=== PATIENT | male | born 2000 | race African-American/Black ===

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

== ENCOUNTER 2022-07-25 12:50 | Inpatient (IN) | payer OTHER, SELFPAY ==
[2022-07-25] MEDS ORDERED: ONDANSETRON 4 MG/2 ML VIAL ONE ×2 (13:09→14:06)
[2022-07-25] MEDS ORDERED: MORPHINE 4 MG/ML SYR ONE (13:09)
--- OUTSIDE RECORDS SUMMARY | 2022-07-25 13:09 | XMS REPORT | Continuity of Care Document ---
:[address] [facility] t Address [address] [place] [address] [address] [place] [address] Care Team Providers Name Role Phone Maki Harding MD Primary Care Physician TAL DAVIS Attending Clinician Unavailable MAKI HARDING Attending Clinician Unavailable RIN DAVIS Attending Clinician Unavailable CISCO VITAL Attending Clinician Unavailable KARLO JONES Attending Clinician Unavailable GEOVANNI LANGLEY Attending Clinician Unavailable PAO MARTINEZ Attending Clinician Unavailable Jeff Corbett MD Attending Clinician [phone] Estrellita Cano Attending Clinician ESTRELLITA ACNO Attending Clinician Unavailable Irina Parks Attending Clinician IRINA PARKS Attending Clinician Unavailable Brooke Claudio RN Attending Clinician Unavailable Gavin Pena RN Attending Clinician Unavailable PRACHI CANO Attending Clinician Unavailable Prachi Cano Attending Clinician Cammie Price Attending Clinician CAMMIE PRICE Attending Clinician Unavailable Holli Valera Attending Clinician Unavailable Marianne Geurra RN Attending Clinician Unavailable Kianna Waters RPH Attending Clinician Unavailable Nancy PATHAK, Manuel Avila Attending Clinician Mor PATHAK, Keny Duffy Attending Clinician Yoselin PATHAK, Kota Jackson Attending Clinician [phone] Alice Lincoln MA Attending Clinician Unavailable Kwabena Mariano MD Attending Clinician Nerissa PATHAK, Vanessa Attending Clinician MD VANESSA MULTANI Attending Clinician Unavailable Selwyn JARAMILLO, Pushpa Attending Clinician Unavailable [facility] ADZ WORKER, Fabi Attending Clinician Unavailable Bettye RN, Yessica Attending Clinician Unavailable Rayo JARAMILLO, Manjula Attending Clinician Unavailable Barbara Harding DO Attending Clinician Rohit PATHAK, Gary Cisneros Attending Clinician Fatemeh Loredo Attending Clinician FATEMEH LOREDO Attending Clinician Unavailable Kim RNLucila Attending Clinician Unavailable Amira RNElsa Attending Clinician Unavailable Adri Melendez RN Attending Clinician Unavailable Rajat Ash Attending Clinician Unavailable Marianne Keller RN Attending Clinician Unavailable Yajaira Du RN Attending Clinician Unavailable Lazarus JARAMILLO, Eryn Attending Clinician Unavailable Latosha Brooks RN Attending Clinician Unavailable CISCO VITAL M.D. Attending Clinician Unavailable Timothy Vasquez Attending Clinician TIMOTHY VASQUEZ Attending Clinician Unavailable Shlomo Bustillos MD Attending Clinician Péerz Thompson MD Attending Clinician FAHEEM BRIGGS Attending Clinician Unavailable CAIT ALMENDAREZ M.D. Attending Clinician Unavailable SMILEY CHAVEZ Attending Clinician Unavailable FRANCISCO JAVIER SOMMERS Attending Clinician Unavailable Leora King Attending Clinician ERENDIRA KITCHEN Attending Clinician Unavailable Dale Rao Attending Clinician ABELINO GUZMAN Admitting Clinician Unavailable Sajja, Abelino Admitting Clinician KOTA PERRIN Admitting Clinician Unavailable MD KENY MENON Admitting Clinician Unavailable VANESSA MULTANI Admitting Clinician Unavailable MD VANESSA MULTANI Admitting Clinician Unavailable PÉREZ THOMPSON Admitting Clinician Unavailable PATTI EPPS Admitting Clinician Unavailable Payers Payer Name Policy Type Policy Number Effective Date Expiration Date S olivia [employer] [id number] 1989 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 00:00:00 Problems Condition Condition Condition Status Onset Resolution Last Treating Co mments Source Name Details Category Date Date Treatment Clinician Date LIP INJURY LIP Diagnosis Active 2021-082022-06-14 Memoria INJURY 0-05 17:03:00 l Active 00:00: [place] 05/05/2022 00 [facility] SICKLE SICKLE Diagnosis Active 2022-04-20 M emoria CELL CELL 9- 08:22:00 l CRISIS CRISIS 00:00: Stiven Active 00 04/19/2022 [facility] SICKLE SICKLE Diagnosis Active 2022-01-11 Me moria CELL CELL 6- 04:41:00 l Active 00:00: Stiven 01/11/2022 00 [facility] ACUTE ACUTE Diagnosis Active 2022-04-16 [facility] oria SICKLE SICKLE 01-11 11:38:00 l CELL CELL 00:00: [place] CRISIS CRISIS 00 Active 01/11/2022 [facility] Sickle Sickle Disease Active Methodi cell cell 3-28 st crisis crisis 00:00: Hospita 00 l Intractabl 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 2-25 migraine migraine 00:00: without without 00 aura and aura and with with status status migrainosu migrainosu s s Sepsis Sepsis Disease Active Methodi 2-02 st 00:00: Hospita 00 l Sickle Sickle Disease Active Methodi cell pain cell pain 1-31 st crisis crisis 00:00: Hospita 00 l SICKLE SICKLE Diagnosis Active 2021-03-31 Me moria CELL CELL 8-17 09:03:00 l CRISIS - CRISIS - 00:00: Sang n CHEST CHEST 00 PAIN, LT PAIN, LT RIBC RIBC Active 03/17/2021 [facility] Lymphadeni Lymphadeni Disease Active U T tis tis 6-11 Health 00:00: 00 Nodule of Nodule of Disease Active UT skin of skin of 10-25 Health right right 00:00: lower leg lower leg 00 Palpitatio Palpitatio Disease Active M ethodi ns ns 10-24 st 00:00: Hospita 00 l Tachycardi Tachycardi Disease Active M ethodi a a 10-24 st 00:00: Hospita 00 l Atypical Atypical Disease Active UT chest pain chest pain 10-24 He alth 00:00: 00 LEG PAIN LEG PAIN Diagnosis Active 2020-10-23 Memoria Active 10-23 14:52:00 l 10/23/2020 13:10: Sang nichols [facility] 00 Stiven Encounter Encounter Disease Active UT for for 2-12 Health support support 00:00: and and 00 coordinati coordinati on of on of transition transition of care of care 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 Evidence of cardiomeg óscar noted on EKGNo evidence of enlarged cardiomed iastinal silhouett e noted on CXR obtain approx 1 mth ago Non-HTN Will obtain Echo for add't eval Iron Iron Disease Active Methodi overload overload 04-25 st 00:00: Hospita 00 l Proteinuri Proteinuri Disease Active U T a a 9 Health 00:00: 00 Sickle Sickle Disease Active Methodi cell cell 3- st retinopath retinopath 00:00: Ho spita y y 00 l Vitamin D Vitamin D Disease Active Met hodi deficiency deficiency 3-17 st 00:00: Hospita 00 l Back Back Disease Active UT muscle muscle 1-24 Health spasm spasm 00:00: 00 Chronic Chronic Disease Active 2018-08 UT pain pain 2-23 Health 00:00: 00 Vitamin D Vitamin D Disease Active 2018-08 Met hodi deficiency deficiency 1-17 st 00:00: Hospita 00 l Pulmonary Pulmonary Disease Active 2018-08 Met hodi hypertensi hypertensi 1-15 st on on 00:00: Hospita 00 l Encounter Encounter Disease Active 2018-08 UT for drug for drug 08-15 Health screening screening 00:00: 00 Sickle Sickle Disease Active 2018-08 UT cell cell 08-15 Health disease, disease, 00:00: type SS type SS 00 Proteinuri Proteinuri Disease Active 2018-08 M ethodi a a 0 00:00: Hospita 00 l Allergic Allergic Disease Active Metho di rhinitis rhinitis 04-15 00:00: Hospita 00 l N50.89 - N50.89 - Diagnosis Active 2022-04-09 Memoria OTHER OTHER 14:05:00 l SPECIFIED SPECIFIED Herm shakira DISORDERS DISORDERS OF T OF T Active [facility] History of History of Problem Resolve UT Acute Acute d Physici chest chest ans syndrome syndrome History of History of Problem Resolve UT Avascular Avascular d Phys ici necrosis necrosis ans Sickle Sickle Problem Active UT cell cell Physici retinopath retinopath an s y y Encounter Encounter Problem Active UT for drug for drug Physic i screening screening ans Pulmonary Pulmonary Problem Active UT hypertensi hypertensi Ph ysici on on ans Vitamin D Vitamin D Problem Active UT deficiency deficiency Ph ysici ans Iron Iron Problem Active UT overload overload Physic i ans Proteinuri Proteinuri Problem Active U T a a Physici ans Pain, Pain, Problem Active UT chronic chronic Physici ans Muscle Muscle Problem Active UT spasm of spasm of Physic i back back ans Transition Transition Problem Active U T of care of care Physici ans Palpitatio Palpitatio Problem Active U T n n Physici ans Chest Chest Problem Active UT tightness tightness Phys ici ans History of History of Problem Resolve UT Pneumonia Pneumonia d Phys ici due to due to ans COVID-19 COVID-19 virus virus Nodule of Nodule of Problem Active UT skin of skin of Physici right right ans lower leg lower leg Tachycardi Tachycardi Problem Active U T a a Physici ans Anemia Anemia Problem Active 2022-05-08 Mem oria (disorder) (disorder) 21:08:20 l Active [place] Problem 05/08/2022 [facility] Hyponatrem Hyponatre Problem Active 2022-05-08 Memoria ia bettina 21:08:20 l (disorder) (disorder) He rmann Active Problem 05/08/2022 [facility] Sickle Sickle Disease Active Last Methodi cell cell Assessmen st anemia anemia t & Plan: Hospita Formattin l g of this note might be different from the original. Recent crisis w/ pain of L flank assoc w/ abnormal urine color Pt was jaundice on presentat ion to ERT bili lvl 3.4CT abd/plevi s -ve for evidence of colitis, perforati on, obstructi on, diverticu litis, hydroneph rosis, or ascites Tx w/ IVF + pain controlur obilinoge n 4.0-->2.0 (likely cause of abnormal color)Orly n now resolvedH emodynami deejay stable, w/ stable anemia Pt state he has had approx 5-6 crisis in the last 6 mthsCompl iant w/ hydroxyur ea Instructe d to f/u w/ Heme concernin g alternati ve tx for freq flares Avascular Avascular Disease 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 Assessmen st t & Plan: Hospita Formattin l g of this note might be different from the original. S/p L shoulder graftingL imited mobility in R shoulder + L hipStable History of Past Illness Condition Condition Condition Status Onset Resolution Last Treating Co mments Source Name Details Category Date Date Treatment Clinician Date Chest Chest Problem 2022-04-21 2022-04-21 M emoria pain, pain, 04-19 22:19:11 22:19:11 l unspecifie unspecifie 17:26: He rmann d d 00 04/19/2022 2 [facility] Hb-SS Hb-SS Problem 2022-04-21 2022-04-21 M emoria disease disease 04-19 22:19:11 22:19:11 l with with 17:26: Stiven crisis, crisis, 00 unspecifie unspecifie d d 04/19/2022 2 [facility] Pleurodyni Pleurodyn Problem 2021-01-26 2021-01-26 Memoria a ia 01-24 21:56:01 21:56:01 l 01/24/2021 17:00: Sang n 1 [facility] Headache, Headache, Problem 2021-01-26 2021-01-26 Memoria unspecifie unspecifie 01-24 21:56:01 21:56:01 l d d 17:00: [place] 01/24/2021 00 01/26/2021 [facility] Pain in Pain in Problem 2020-10-25 2020-10-25 Memoria leg, leg, - 22:15:22 22:15:22 l unspecifie unspecifie 17:00: He rmann d d 00 10/23/2020 10/25/2020 [facility] Allergies, Adverse Reactions, Alerts Allergy Allergy Status Severity Reaction(s) Onset Inactive Treating Comm ents Source Name Type Date Date Clinician Cirilo Huston Active Rash Patient Metho di allen ty to 09-[address] adverse 00:00: as Hospita reaction 00 becoming l s to really drug hot, had tachycard ia, a diffuse rash and syncope immediate ly after receiving ceftriaxo ne IV Rocephin Rocephin Active Memori a l [place] Rocephin Allergy Active UT to drug Physici (finding ans ) Family History Family Member Diagnosis Comments Start Date Stop Date Source Mother Family history of [facility] Phys icians sickle cell trait Mother Family history of [facility] Phys icians diabetes mellitus Mother Family history of [facility] Phys icians Thalassemia trait Father Family history of [facility] Phys icians sickle cell trait Father Family history of [facility] Phys icians hypertension Father Family history of [facility] Phys icians Thalassemia trait Natural father Diabetes Gnosticism [facility] Natural father Heart attack [facility] Natural father Stroke [facility] Maternal Diabetes Gnosticism grandmother [facility] Natural mother Diabetes Gnosticism Hospital Social History Social Habit Start Date Stop Date Quantity Comments Source History SDOH Gnosticism Alcohol Comment Hospital History [facility] Gnosticism Alcohol Std Hospital Drinks History [facility] Gnosticism Alcohol Binge Hospital Exposure to 2022-03-02 2022-03-12 Not sure [facility] SARS-CoV-2 00:00:00 13:32:00 (event) Social History 2022-01-12 2022-01-12 [facility] 00:39:44 00:39:44 Alcohol intake 2021-10-26 2021-10-26 Current drinker [facility]o dist 00:00:00 00:00:00 of alcohol Hospital (finding) History [facility] 2020-09-22 2020-09-22 1 Gnosticism Alcohol Frequency 00:00:00 00:00:00 Hospita l Tobacco use and 2019-04-16 2019-04-16 Smokeless tobacco Me [facility]odist exposure 00:00:00 00:00:00 non-user Hospital Sex Assigned At [birth year] [facility] 00:00:00 00:00:00 Smoking Status Start Date Stop Date Source Social History 2019-07-31 04:36:04 [facility] Her reyna Never smoked tobacco Gnosticism H ospital Medications Ordered Filled Start Stop Current Ordering Indication Dosage Frequency Signature Comments Components Source Medication Medication Date Date Medication? Clinician (SIG) Name Name morphine No 4 mg, Memoria Sulfate 04-19 Route: l 16:51: IVP, Drug Stiven form: INJ, ONCE, Dosing Weight 68.3, kg, Priority: STAT, Start date: 04/19/22 11:51:00 CDT, Stop date: 04/19/22 11:51:00 CDT morphine No 4 mg, Memoria Sulfate 04-19 Route: l 16:51: IVP, Drug [place] form: INJ, ONCE, Dosing Weight 68.3, kg, Priority: STAT, Start date: 04/19/22 11:51:00 CDT, Stop date: 04/19/22 11:51:00 CDT Dilaudid No Notes: Memoria - (Same as: l 16:29: Dilaudid) Stiven 00 ketOROLAC 0 No 4 days Memor ia 15 mg/mL 04-19 l injectable 16:29: MEDICATION H ermann solution 00 WASTE Product Size: 30 mg Product Wasted: ___ mg Dilaudid No Notes: Memoria 9-19 (Same as: l 16:29: Dilaudid) Stiven 00 ketOROLAC 0 No 4 days Memor ia 15 mg/mL 04-19 l injectable 16:29: MEDICATION H ermann solution 00 WASTE Product Size: 30 mg Product Wasted: ___ mg morphine No Notes: Memoria Sulfate 04-19 (Same l 15:06: as:MORPhin [place] 00 e Sulfate) morphine No Notes: Memoria Sulfate 9-19 (Same l 15:06: as:MORPhin Stiven 00 e Sulfate) morphine No Notes: Memoria Sulfate 9-19 (Same l 12:09: as:MORPhin [place] 00 e Sulfate) Zofran No Notes: Memoria 9-19 (Same as: l 12:09: Zofran) Stiven 00 MEDICATION WASTE Product Size: 4 mg Product Wasted: ___ mg normal No 1,000 mL, Memori a saline 0.9% 9-19 1,000 l (Bolus) IV 12:09: ml/hr, Mignon nn 00 Infuse Over: 1 hr, Route: IV, 1,000, Drug form: INJ, ONCE, Priority: STAT, Dosing Weight 68.3 kg, Start date: 04/19/22 7:09:00 CDT, Stop date: 04/19/22 7:09:00 CDT, 0 morphine No Notes: Memoria Sulfate 9- (Same l 12:09: as:MORPhin [place] 00 e Sulfate) Zofran No Notes: Memoria - (Same as: l 12:09: Zofran) Stiven 00 MEDICATION WASTE Product Size: 4 mg Product Wasted: ___ mg normal No 1,000 mL, Memori a saline 0.9% 9-19 1,000 l (Bolus) IV 12:09: ml/hr, Mignon nn 00 Infuse Over: 1 hr, Route: IV, 1,000, Drug form: INJ, ONCE, Priority: STAT, Dosing Weight 68.3 kg, Start date: 04/19/22 7:09:00 CDT, Stop date: 04/19/22 7:09:00 CDT, 0 ketorolac 2021- No 15mg UT (Toradol) 04-06 Health injection 21:30: 20:50 15 mg 00 :00 ketorolac 2021- No 15mg 15 mg, UT (Toradol) 04-06 Intravenou Hea lth injection 21:30: 20:50 s, Once, 15 mg 00 :00 On Tue04/06/22 at 1630, For 1 dose
In dications: sickle cell pain crisis. sodium 2021- No 500mL/h UT chloride 04-06 Health 0.9 % 21:00: 20:15 infusion 00 :00 sodium 2021- No 500mL/h 500 mL/hr, U T chloride 04-06 Intravenou Heal th 0.9 % 21:00: 20:15 s, Once, infusion 00 :00 On Tue04/06/22 at 1600, For 1 dose
In dications: sickle cell pain crisis HYDROcodone Yes [id number] 1{tbl} Q6H Take 1 UT -acetaminop 8-17 tablet by [facility] hen ([facility]) 00:00: mouth 10-325 MG 00 every 6 tablet (six) hours if needed for severe pain. HYDROcodone Yes [id number] 1{tbl} Q6H Take 1 UT -acetaminop 8-17 tablet by [facility] hen ([facility]) 00:00: mouth 10-325 MG 00 every 6 tablet (six) hours if needed for severe pain. HYDROcodone 2021- No [id number] 1{tbl} Q6H Take 1 UT -acetaminop 8-15 08-[address] [facility] [employer] ([facility]) 00:00: 00:00 mouth 10-325 MG 00 :00 every 6 tablet (six) hours if needed for severe pain. hydroxyurea Yes [id number] TAKE 4 UT (Hydrea) 8-12 CAPSULES Health 500 MG 00:00: DAILY capsule 00 methocarbam Yes [id number] TAKE 1 UT ol 8-12 TABLET Health (Robaxin) 00:00: DAILY 500 MG 00 NEEDED FOR tablet SPASM. hydroxyurea Yes [id number] TAKE 4 UT (Hydrea) 8-12 CAPSULES Health 500 MG 00:00: DAILY capsule 00 methocarbam 0 Yes [id number] TAKE 1 UT ol 8-12 TABLET Health (Robaxin) 00:00: DAILY 500 MG 00 NEEDED FOR tablet SPASM. gabapentin 2021- No [id number] 300mg Take 1 UT (Neurontin) 03-12 capsule Heal th 300 MG 00:00: 04:59 (300 mg capsule 00 :00 total) by mouth every night. gabapentin 2021- No [id number] 300mg Take 1 UT (Neurontin) 03-12 capsule Heal th 300 MG 00:00: 04:59 (300 mg capsule 00 :00 total) by mouth every night. levofloxaci Yes 750 mg = 1 Memoria n 750 mg 6-19 tab, PO, l oral tablet 15:12: Daily, X 5 Stiven day, # 5 tab, 0 Refill(s), Pharmacy: [facility] #[id number], 167.64, cm, 01/11/22 19:35:00 CDT, Height, 69.8, kg, 01/11/22 19:35:00 CDT, Weight tramadol 50 Yes 50 mg = 1 M emoria mg oral 6-19 tab, PO, l tablet 15:12: Q6H, X 7 Henderson 00 day, # 28 tab, 0 Refill(s), Pharmacy: [facility] #[id number], 167.64, cm, 01/11/22 19:35:00 CDT, Height, 69.8, kg, 01/11/22 19:35:00 CDT, Weight senna 8.6 Yes 17.2 mg = Mem oria mg oral 6-19 2 tab, PO, l tablet 15:12: Bedtime, X Mignon 7 day, # 14 tab, 0 Refill(s), Pharmacy: [facility] #[id number], 167.64, cm, 01/11/22 19:35:00 CDT, Height, 69.8, kg, 01/11/22 19:35:00 CDT, Weight levofloxaci Yes 750 mg = 1 Memoria n 750 mg 6-19 tab, PO, l oral tablet 15:12: Daily, X 5 Stiven day, # 5 tab, 0 Refill(s), Pharmacy: [facility] #[id number], 167.64, cm, 01/11/22 19:35:00 CDT, Height, 69.8, kg, 01/11/22 19:35:00 CDT, Weight tramadol 50 0 Yes 50 mg = 1 M emoria mg oral 6-19 tab, PO, l tablet 15:12: Q6H, X 7 [place] 00 day, # 28 tab, 0 Refill(s), [id number], 167.64, cm, 01/11/22 19:35:00 CDT, Height, 69.8, kg, 01/11/22 19:35:00 CDT, Weight senna 8.6 Yes 17.2 mg = Mem oria mg oral 6-19 2 tab, PO, l tablet 15:12: Bedtime, X Mignon nn 00 7 day, # 14 tab, 0 Refill(s), Pharmacy: [facility] #[id number], 167.64, cm, 01/11/22 19:35:00 CDT, Height, 69.8, kg, 01/11/22 19:35:00 CDT, Weight [place] Yes 1 tab, PO, Memori a 10/325 oral 6-19 Q6H, PRN l tablet 15:11: Other -See Mignon nn 00 Comment, X 7 day, # 30 tab, 0 Refill(s), Pharmacy: [facility] #[id number], 167.64, cm, 01/11/22 19:35:00 CDT, Height, 69.8, kg, 01/11/22 19:35:00 CDT, Weight Robaxin 500 Yes 500 mg = 1 Memoria mg oral 6-19 tab, PO, l tablet 15:11: Q4H, PRN Stiven 00 Muscle Spasms, X 5 day, # 60 tab, 0 Refill(s), Pharmacy: [facility] #[id number], 167.64, cm, 01/11/22 19:35:00 CDT, Height, 69.8, kg, 01/11/22 19:35:00 CDT, Weight codeine-gua 0 Yes 10 mL, PO, Memoria iFENesin 10 6-19 Q4H, PRN l mg-100 mg/5 15:11: Cough, X 3 Henderson mL oral 00 day, # 120 syrup mL, 0 Refill(s), Pharmacy: [facility] #[id number], 167.64, cm, 01/11/22 19:35:00 CDT, Height, 69.8, kg, 01/11/22 19:35:00 CDT, Weight [place] 0 Yes 1 tab, PO, Memori a 10/325 oral 6-19 Q6H, PRN l tablet 15:11: Other -See Mignon nn 00 Comment, X 7 day, # 30 tab, 0 Refill(s), Pharmacy: [facility] #[id number], 167.64, cm, 01/11/22 19:35:00 CDT, Height, 69.8, kg, 01/11/22 19:35:00 CDT, Weight Robaxin 500 Yes 500 mg = 1 Memoria mg oral 6-19 tab, PO, l tablet 15:11: Q4H, PRN Stiven 00 Muscle Spasms, X 5 day, # 60 tab, 0 Refill(s), Pharmacy: [facility] #[id number], 167.64, cm, 01/11/22 19:35:00 CDT, Height, 69.8, kg, 01/11/22 19:35:00 CDT, Weight codeine-gua Yes 10 mL, PO, Memoria iFENesin 10 6-19 Q4H, PRN l mg-100 mg/5 15:11: Cough, X 3 Stiven mL oral 00 day, # 120 syrup mL, 0 Refill(s), Pharmacy: [facility] #[id number], 167.64, cm, 01/11/22 19:35:00 CDT, Height, 69.8, kg, 01/11/22 19:35:00 CDT, Weight magnesium 0 No Notes: Memori a citrate 6-18 (Same as: l 1.745 g/30 14:06: Citrate of H ermann mL oral 00 Magnesia) liquid Concentrat ion: 1.745 gm / 30 mL magnesium No Notes: Memori a citrate 6-18 (Same as: l 1.745 g/30 14:06: Citrate of H ermann mL oral 00 Magnesia) liquid Concentrat ion: 1.745 gm / 30 mL SUMAtriptan No Notes: Fred sherlyn 6-17 (Same As: l 13:39: Imitrex) SUMAtriptan No Notes: Fred sherlyn 6-17 (Same As: l 13:39: Imitrex) potassium No Notes: Memori a chloride 6-16 (Same as: l 19:39: K-Dur 20) "Do Not Crush" Give with food and full glass of water For patients unable to swallow tablet, dissolve in one half glass of water. Allow about 2 minutes for the tablets to disintegra te. Stir before giving to prepare slurry and administer . Please exclude Patient s with feeding tube less than 14 Portuguese (Dobhoff, J-tube etc) and pediatric and patients. potassium No Notes: Memori a phosphate-s -16 (Same as: l odium 19:39: Phos-NaK) Henderson phosphate 00 Each 1.5 250 mg-280 gm pkt has mg-160 mg 250mg oral powder phosphorou for s. Mix reconstitut w/2.5oz ion water and stir. potassium No Notes: Memori a phosphate + 6-16 (Same as: l Sodium 19:39: K [place] Chloride 00 Phosphate. 0.9% IV 250 ) Do not mL infuse phosphorou s concurrent ly in the same line as TPN or IVF that contains calcium. For double lumen central lines, phosphorou s may be infused in a separate lumen from TPN. 1 mMol phoshate has 1.47 mEq potassium Infuse over 4 hours sodium No Notes: Memoria phosphate + 6-16 Infuse l Dextrose 5% 19:39: over 4 Herm shakira in Water IV 00 hour. Do 250 mL not infuse phosphorou s concurrent ly in the same line as TPN or IVF that contains calcium. For double lumen central lines, phosphorou s may be infused in a separate lumen from TPN. magnesium No Notes: Memori a sulfate -16 WASTE: F/P l 19:39: - Sink; E Stiven 00 - Municipal Trash Bin magnesium No Notes: Memori a oxide 6-16 (Same as: l 19:39: Mag-Ox Henderson 00 400) Magnesium oxide [id number] g elemental magnesium Dose=____m g magnesium oxide (___mg elemental magnesium) calcium No Notes: Memoria gluconate 6-16 WASTE: F/P l 19:39: - Sink; E Stiven 00 - Municipal Trash Bin calcium No Notes: Memoria gluconate + 6-16 WASTE: F/P l Sodium 19:39: - Sink; E Sang n Chloride 00 - 0.9% IV 100 Municipal mL Trash Bin potassium No Notes: Memori a chloride 6-16 (Same as: l 19:39: K-Dur 20) Stiven 00 "Do Not Crush" Give with food and full glass of water For patients unable to swallow tablet, dissolve in one half glass of water. Allow about 2 minutes for the tablets to disintegra te. Stir before giving to prepare slurry and administer . Please exclude Patient s with feeding tube less than 14 Portuguese (Dobhoff, J-tube etc) and pediatric and patients. potassium No Notes: Memori a phosphate-s -16 (Same as: l odium 19:39: Phos-NaK) Stiven phosphate 00 Each 1.5 250 mg-280 gm pkt has mg-160 mg 250mg oral powder phosphorou for s. Mix reconstitut w/2.5oz ion water and stir. potassium No Notes: Memori a phosphate + 6-16 (Same as: l Sodium 19:39: K Stiven Chloride 00 Phosphate. 0.9% IV 250 ) Do not mL infuse phosphorou s concurrent ly in the same line as TPN or IVF that contains calcium. For double lumen central lines, phosphorou s may be infused in a separate lumen from TPN. 1 mMol phoshate has 1.47 mEq potassium Infuse over 4 hours sodium No Notes: Memoria phosphate + 6-16 Infuse l Dextrose 5% 19:39: over 4 Herm shakira in Water IV 00 hour. Do 250 mL not infuse phosphorou s concurrent ly in the same line as TPN or IVF that contains calcium. For double lumen central lines, phosphorou s may be infused in a separate lumen from TPN. magnesium No Notes: Memori a sulfate 6-16 WASTE: F/P l 19:39: - Sink; E Henderson 00 - Municipal Trash Bin magnesium No Notes: Memori a oxide 6-16 (Same as: l 19:39: Mag-Ox [place] 00 400) Magnesium oxide [id number] g elemental magnesium Dose=____m g magnesium oxide (___mg elemental magnesium) calcium No Notes: Memoria gluconate 6-16 WASTE: F/P l 19:39: - Sink; E Stiven 00 - Municipal Trash Bin calcium No Notes: Memoria gluconate + 16 WASTE: F/P l Sodium 19:39: - Sink; E Sang n Chloride 00 - 0.9% IV 100 Municipal mL Trash Bin simethicone No Notes: Fred sherlyn 6-16 (Same as: l 19:38: Mylicon) codeine-gua No Notes: Fred sherlyn iFENesin 10 6-16 (Same As: l mg-100 mg/5 19:38: Robitussin [place] mL oral 00 AC) syrup diphenhydrA No Notes: Fred sherlyn MINE 6-16 (Same as: l 19:38: Benadryl) melatonin No Notes: Memori a 6-16 (Same as: l 19:38: Melatonin) simethicone No Notes: Fred sherlyn 6-16 (Same as: l 19:38: Mylicon) codeine-gua No Notes: Fred sherlyn iFENesin 10 6-16 (Same As: l mg-100 mg/5 19:38: Robitussin [place] mL oral 00 AC) syrup diphenhydrA No Notes: Fred sherlyn MINE 6-16 (Same as: l 19:38: Benadryl) melatonin No Notes: Memori a 6-16 (Same as: l 19:38: Melatonin) Levaquin No Notes: Do Fred sherlyn 6-16 not give l 13:00: w/antacids , dairy pdt & minerals Take 1 hr before or 2 hr after dairy pdt (Same as:Levaqui n) Levaquin 2022-0 No Notes: Do Fred sherlyn 6-16 not give l 13:00: w/antacids , dairy pdt & minerals Take 1 hr before or 2 hr after dairy pdt (Same as:Levaqui n) hydroxyurea No Notes: Fred sherlyn 6-15 (Same as: l 14:00: Hydrea) Hazardous Drug Group 1:Antineop lastic Hazardous Drug -- Refer to safe handling procedure PPE Matrix WASTE: F/P - Black; E Yellow "Do Not Crush" hydroxyurea No Notes: Fred sherlyn 6-15 (Same as: l 14:00: Hydrea) Hazardous Drug Group 1:Antineop lastic Hazardous Drug -- Refer to safe handling procedure PPE Matrix WASTE: F/P - Black; E Yellow "Do Not Crush" sodium 2021- No 2 gm, 2 Memoria chloride 1 6-15 tab, l gm oral 13:00: Route: PO, Herm shakira tablet 00 Drug form: TAB, [id number], Dosing Weight 69.8, kg, Start date: 01/13/22 8:00:00 CDT, Duration: 30 day, Stop date: 02/11/22 20:00:00 CDT, 0 sodium 2021-0 No 2 gm, 2 Memoria chloride 1 6-15 tab, l gm oral 13:00: Route: PO, Herm shakira tablet 00 Drug form: TAB, [id number], Dosing Weight 69.8, kg, Start date: 01/13/22 8:00:00 CDT, Duration: 30 day, Stop date: 02/11/22 20:00:00 CDT, 0 gabapentin No Notes: Memor ia 300 mg oral 6-14 (Same as: l capsule 22:00: Neurontin) Herm shakira gabapentin 2021-0 No Notes: Memor ia 300 mg oral 6-14 (Same as: l capsule 22:00: Neurontin) Herm Sodium 2021-0 No 1,000 mL, Memori a Chloride 6-14 Rate: 40 l 0.45% IV 16:27: ml/hr, Stiven 1,000 mL 00 Infuse over: 25 hr, Route: IV, Dosing Weight 69.8 kg, Total Volume: 1,000, Start date: 01/12/22 11:27:00 CDT, Duration: 30 day, Stop date: 02/11/22 11:26:00 CDT, BSA: 1.82 m2, 0 Sodium No 1,000 mL, Memori a Chloride 6-14 Rate: 40 l 0.45% IV 16:27: ml/hr, [place] 1,000 mL 00 Infuse over: 25 hr, Route: IV, Dosing Weight 69.8 kg, Total Volume: 1,000, Start date: 01/12/22 11:27:00 CDT, Duration: 30 day, Stop date: 02/11/22 11:26:00 CDT, BSA: 1.82 m2, 0 tramadol 50 No Notes: Not Memoria mg oral 6-14 to exceed l tablet 14:19: 400mg/day. Mignon nn 00 (Same As: Ultram) tramadol 50 No Notes: Not Memoria mg oral 6-14 to exceed l tablet 14:19: 400mg/day. Mignon nn 00 (Same As: Ultram) Robaxin No Notes: Memoria 6-14 (Same l 14:18: as:Robaxin Stiven 00 ) Robaxin No Notes: Memoria 6-14 (Same l 14:18: as:Robaxin Stiven 00 ) Vitamin D2 Yes 50,000 Memor ia 6-14 units, l 02:53: qWeek, 0 [place] 00 Refill(s) Vitamin D2 Yes 50,000 Memor ia 6-14 units, l 02:53: qWeek, 0 Stiven 00 Refill(s) SUMAtriptan Yes 25 mg = 1 M emoria 25 mg oral 6-14 tab, PO, l tablet 02:50: PRN, 0 [place] 00 Refill(s) SUMAtriptan Yes 25 mg = 1 M emoria 25 mg oral 6-14 tab, PO, l tablet 02:50: PRN, 0 [place] 00 Refill(s) hydroxyurea Yes 4 capsule, Memoria 500 mg oral 6-14 PO, Daily, l capsule 02:49: 0 Stiven 00 Refill(s) hydroxyurea 2022-0 Yes 4 capsule, Memoria 500 mg oral 6-14 PO, Daily, l capsule 02:49: 0 [place] 00 Refill(s) nortriptyli Yes 10 mg = 1 M emoria ne 10 mg 6-14 cap, PO, l oral 02:46: Bedtime, 0 Stiven capsule 00 Refill(s) gabapentin Yes 300 mg = 1 M emoria 300 mg oral 6-14 cap, l capsule 02:46: Daily, 0 Sang n 00 Refill(s) nortriptyli Yes 10 mg = 1 M emoria ne 10 mg 6-14 cap, PO, l oral 02:46: Bedtime, 0 [place] capsule 00 Refill(s) gabapentin Yes 300 mg = 1 M emoria 300 mg oral 6-14 cap, l capsule 02:46: Daily, 0 Sang n 00 Refill(s) [place] No 1 tab, PO, Memori a 10/325 oral 6-14 Q6H, PRN l tablet 02:44: Other -See Mignon nn 00 Comment, 0 Refill(s) [place] No 1 tab, PO, Memori a 10/325 oral 6-14 Q6H, PRN l tablet 02:44: Other -See Mignon nn 00 Comment, 0 Refill(s) Robaxin 500 No 500 mg = 1 Memoria mg oral 6-14 tab, PO, l tablet 02:43: Q4H, PRN [place] 00 Muscle Spasms, 0 Refill(s) Robaxin 500 No 500 mg = 1 Memoria mg oral 6-14 tab, PO, l tablet 02:43: Q4H, PRN [place] 00 Muscle Spasms, 0 Refill(s) folic acid 0 Yes 1 mg, Memori a 6-14 Daily, 0 l 02:42: Refill(s) [place] 00 folic acid 0 Yes 1 mg, Memori a 6-14 Daily, 0 l 02:42: Refill(s) [place] 00 Senokot S No Notes: Memori a oral tablet 6-14 (Same as l 02:00: Senokot-S) [place] 00 Equiv. to Concepcion-Colac e. Senokot S No Notes: Memori a oral tablet 6-14 (Same as l 02:00: Senokot-S) Equiv. to Concepcion-Colac e. folic acid No Notes: Memor ia 6-13 (Same as: l 14:00: Folvite) Lovenox No Notes: Memoria 6-13 (Same as: l 14:00: Lovenox) folic acid No Notes: Memor ia 6-13 (Same as: l 14:00: Folvite) Lovenox No Notes: Memoria 6-13 (Same as: l 14:00: Lovenox) ketOROLAC No 4 days. Fred sherlyn 6-13 l 11:00: ketOROLAC No 4 days. Fred sherlyn 6-13 l 11:00: Stiven D1W No 250 mL, Memoria (bolus) IV 6-13 Rate: 999 l 10:03: ml/hr, Infuse over: 0.3 hr, Route: IVPB, Total Volume: 250, Start date: 01/11/22 5:03:00 CDT, Duration: 30 day, Stop date: 02/10/22 5:02:00 CDT, PRN Blood Glucose Results, 0 No 250 mL, Memoria (bolus) IV 6-13 Rate: 999 l 10:03: ml/hr, Infuse over: 0.3 hr, Route: IVPB, Total Volume: 250, Start date: 01/11/22 5:03:00 CDT, Duration: 30 day, Stop date: 02/10/22 5:02:00 CDT, PRN Blood Glucose Results, 0 No 125 mL, Memoria (bolus) IV 6-13 Rate: l 09:48: 416.67 [place] ml/hr, Infuse over: 0.3 hr, Route: IVPB, Total Volume: 125, Start date: 01/11/22 4:48:00 CDT, Duration: 30 day, Stop date: 02/10/22 4:47:00 CDT, PRN Blood Glucose Results, 0 D10W 2021-0 No 125 mL, Memoria (bolus) IV - Rate: l 09:48: 416.67 [place] 00 ml/hr, Infuse over: 0.3 hr, Route: IVPB, Total Volume: 125, Start date: 01/11/22 4:48:00 CDT, Duration: 30 day, Stop date: 02/10/22 4:47:00 CDT, PRN Blood Glucose Results, 0 Dextrose 2021-0 No 25 mL, Memoria 50% Syringe - Route: l (D50W) 09:34: IVP, [place] 00 Dosing Weight 68.001, kg, PRN, PRN Blood Glucose Results, Start date: 01/11/22 4:34:00 CDT, Duration: 30 day, Stop date: 02/10/22 4:33:00 CDT glucagon 2021-0 No 1 mg, Memoria 6- Route: IM, l 09:34: Drug form: Stiven PDR/INJ, PRN, Dosing Weight 68.001, kg, PRN Blood Glucose Results, Start date: 01/11/22 4:34:00 CDT, Duration: 30 day, Stop date: 02/10/22 4:33:00 CDT, 0 ondansetron No Notes: Ferd sherlyn 01-11 (Same as: l 09:34: Zofran) MEDICATION WASTE Product Size: 4 mg Product Wasted: ___ mg acetaminoph No Notes: Do M emoria en 01-11 not exceed l 09:34: 4 gm/day. (Same as: Tylenol) Dextrose 2021-0 No 25 mL, Memoria 50% Syringe - Route: l (D50W) 09:34: IVP, [place] Dosing Weight 68.001, kg, PRN, PRN Blood Glucose Results, Start date: 01/11/22 4:34:00 CDT, Duration: 30 day, Stop date: 02/10/22 4:33:00 CDT glucagon 2021-0 No 1 mg, Memoria 6-13 Route: IM, l 09:34: Drug form: Stiven 00 PDR/INJ, PRN, Dosing Weight 68.001, kg, PRN Blood Glucose Results, Start date: 01/11/22 4:34:00 CDT, Duration: 30 day, Stop date: 02/10/22 4:33:00 CDT, 0 ondansetron No Notes: Fred sherlyn 6-13 (Same as: l 09:34: Zofran) Stiven MEDICATION WASTE Product Size: 4 mg Product Wasted: ___ mg acetaminoph No Notes: Do M emoria en 6-13 not exceed l 09:34: 4 gm/day. [place] 00 (Same as: Tylenol) Sodium No 1,000 mL, Memori a Chloride 6-13 Rate: 125 l 0.45% IV 09:12: ml/hr, Stiven 1,000 mL 00 Infuse over: 8 hr, Route: IV, Dosing Weight 68.001 kg, Total Volume: 1,000, Start date: 01/11/22 4:12:00 CDT, Duration: 30 day, Stop date: 02/10/22 4:11:00 CDT, BSA: 1.79 m2, 0 acetaminoph No Notes: Fred sherlyn en-hydrocod 6-13 (Same as: l one 325 09:12: [place] Stiven mg-5 mg 00 325/5) Do oral tablet not exceed 4gm/day of acetaminop hen. hydromorpho No Notes: Fred sherlyn ne 6-13 (Same as: l 09:12: Dilaudid) [place] 00 docusate No Notes: Memoria sodium 100 6-13 (Same as: l mg oral 09:12: Colace) [place] capsule 00 (Do Not Crush) senna 8.6 No Notes: Memori a mg oral 6-13 (Same as: l tablet 09:12: Senokot) [place] 00 Sodium No 1,000 mL, Memori a Chloride 6-13 Rate: 125 l 0.45% IV 09:12: ml/hr, Henderson 1,000 mL 00 Infuse over: 8 hr, Route: IV, Dosing Weight 68.001 kg, Total Volume: 1,000, Start date: 01/11/22 4:12:00 CDT, Duration: 30 day, Stop date: 02/10/22 4:11:00 CDT, BSA: 1.79 m2, 0 acetaminoph No Notes: Fred sherlyn en-hydrocod 6-13 (Same as: l one 325 09:12: [place] mg-5 mg 00 325/5) Do oral tablet not exceed 4gm/day of acetaminop hen. hydromorpho No Notes: Fred sherlyn ne 6-13 (Same as: l 09:12: Dilaudid) Stiven 00 docusate No Notes: Memoria sodium 100 6-13 (Same as: l mg oral 09:12: Colace) Stiven capsule 00 (Do Not Crush) senna 8.6 No Notes: Memori a mg oral -13 (Same as: l tablet 09:12: Senokot) [place] 00 Dilaudid No 1 mg, Memoria 6-13 Route: l 09:06: IVP, ONCE, Stiven 00 Dosing Weight 68.001, kg, Priority: STAT, Start date: 01/11/22 4:06:00 CDT, Stop date: 01/11/22 4:06:00 CDT Dilaudid No 1 mg, Memoria 6-13 Route: l 09:06: IVP, ONCE, Stiven 00 Dosing Weight 68.001, kg, Priority: STAT, Start date: 01/11/22 4:06:00 CDT, Stop date: 01/11/22 4:06:00 CDT Sodium 2021-0 No 1,000 mL, Memori a Chloride 6-13 1000 l 0.9% 07:32: ml/hr, Stiven (Bolus) IV 00 Infuse Over: 1 hr, Route: IV, 1,000, Drug form: INJ, ONCE, Priority: STAT, Dosing Weight 68.001 kg, Start date: 01/11/22 2:32:00 CDT, Stop date: 01/11/22 2:32:00 CDT, 0 morphine No Notes: Memoria Sulfate 6-13 (Same l 07:32: as:MORPhin Stiven 00 e Sulfate) ondansetron No Notes: Fred sherlyn 6-13 (Same as: l 07:32: Zofran) [place] 00 MEDICATION WASTE Product Size: 4 mg Product Wasted: ___ mg Sodium No 1,000 mL, Memori a Chloride 01-11 1000 l 0.9% 07:32: ml/hr, Stiven (Bolus) IV 00 Infuse Over: 1 hr, Route: IV, 1,000, Drug form: INJ, ONCE, Priority: STAT, Dosing Weight 68.001 kg, Start date: 01/11/22 2:32:00 CDT, Stop date: 01/11/22 2:32:00 CDT, 0 morphine No Notes: Memoria Sulfate - (Same l 07:32: as:MORPhin [place] 00 e Sulfate) ondansetron No Notes: Fred sherlyn - (Same as: l 07:32: Zofran) Stiven 00 MEDICATION WASTE Product Size: 4 mg Product Wasted: ___ mg Dilaudid No Notes: Memoria 6-12 (Same as: l 15:19: Dilaudid) [place] 00 Dilaudid No Notes: Memoria 6-12 (Same as: l 15:19: Dilaudid) Stiven 00 NS (Bolus) No 1,000 mL, Me moria IV -12 1,000 l 13:19: ml/hr, Stiven 00 Infuse Over: 1 hr, Route: IV, 1,000, Drug form: INJ, ONCE, Priority: STAT, Dosing Weight 69.2 kg, Start date: 01/10/22 8:19:00 CDT, Stop date: 01/10/22 8:19:00 CDT, 0 NS (Bolus) No 1,000 mL, Me moria IV 6-12 1,000 l 13:19: ml/hr, [place] 00 Infuse Over: 1 hr, Route: IV, 1,000, Drug form: INJ, ONCE, Priority: STAT, Dosing Weight 69.2 kg, Start date: 01/10/22 8:19:00 CDT, Stop date: 01/10/22 8:19:00 CDT, 0 Benadryl No Notes: Memoria 6-12 (Same as: l 13:18: Benadryl) [place] 00 Benadryl No Notes: Memoria 6-12 (Same as: l 13:18: Benadryl) [place] 00 Saline No Notes: Memoria Flush 0.9% 6-12 Same as: l 13:07: BD [place] 00 Posiflush Sterile morphine No Notes: Memoria Sulfate 6-12 (Same l 13:07: as:MORPhin Stiven 00 e Sulfate) ondansetron No Notes: Fred sherlyn 6-12 (Same as: l 13:07: Zofran) MEDICATION WASTE Product Size: 4 mg Product Wasted: ___ mg Saline No Notes: Memoria Flush 0.9% 6-12 Same as: l 13:07: BD Stiven 00 Posiflush Sterile morphine No Notes: Memoria Sulfate 6-12 (Same l 13:07: as:MORPhin Stiven 00 e Sulfate) ondansetron No Notes: Fred sherlyn 6-12 (Same as: l 13:07: Zofran) MEDICATION WASTE Product Size: 4 mg Product Wasted: ___ mg nortriptyli Yes [id number] TAKE 1 CAP UT ne 4-19 BY MOUTH Health (Pamelor) 00:00: AT BEDTIME 10 MG 00 FOR 1 capsule WEEK, THEN 2 CAPSULES FOR 1 WEEK, THEN 3 CAPSULES AT BEDTIMEE nortriptyli Yes [id number] TAKE 1 CAP UT ne 4-19 BY MOUTH Health (Pamelor) 00:00: AT BEDTIME 10 MG 00 FOR 1 capsule WEEK, THEN 2 CAPSULES FOR 1 WEEK, THEN 3 CAPSULES AT BEDTIMEE methocarbam Yes 500mg Q4H Take 500 M ethodi ol 4-[address] (ROBAXIN) 17:01: mouth Hospita 500 MG 37 every 4 l tablet (four) hours as needed for muscle spasms. folic acid 2021-0 Yes 1mg QD Take 1 mg Me thodi (FOLVITE) 1 4-[address] MG tablet 17:01: daily. In [facility] aaron 37 the l morning SUMAtriptan 2-0 Yes 25mg Take 25 mg Methodi (IMITREX) 4-[address] 25 MG 17:01: once as Hospita tablet 37 needed for l migraine. May repeat in 2 hours if unresolved . Do not exceed 200 mg in 24 hours. methocarbam 2021-0 Yes 500mg Q4H Take 500 M ethodi ol 4-[address] (ROBAXIN) 17:01: mouth Hospita 500 MG 37 every 4 l tablet (four) hours as needed for muscle spasms. folic acid 2021-0 Yes 1mg QD Take 1 mg Me thodi (FOLVITE) 1 4-[address] MG tablet 17:01: daily. In [facility] 37 the l morning SUMAtriptan 2-0 Yes 25mg Take 25 mg Methodi (IMITREX) 4-[address] 25 MG 17:01: once as Hospita tablet 37 needed for l migraine. May repeat in 2 hours if unresolved . Do not exceed 200 mg in 24 hours. SUMAtriptan 2021-0 Yes [id number] 25mg Take 1 UT (Imitrex) 2-24 tablet (25 Heal th 25 MG 00:00: mg total) tablet 00 by mouth 1 (one) time if needed for migraine (may repeat x1) for up to 1 dose. May repeat dose once in 2 hours if no relief. Do not exceed 2 doses in 24 hours. Diclofenac 2021-0 Yes 58 50mg Take 50 mg U T Potassium,M 2-24 by mouth 1 He alth igraine, 00:00: (one) time ([place]ambia) 50 00 each day MG pack if needed (headache) . SUMAtriptan 2021-0 Yes [id number] 25mg Take 1 UT (Imitrex) 2-24 tablet (25 Heal th 25 MG 00:00: mg total) tablet 00 by mouth 1 (one) time if needed for migraine (may repeat x1) for up to 1 dose. May repeat dose once in 2 hours if no relief. Do not exceed 2 doses in 24 hours. Diclofenac 2021-0 Yes 58 50mg Take 50 mg U T Potassium,M 2-24 by mouth 1 He alth igraine, 00:00: (one) time ([place]ia) 50 00 each day MG pack if needed (headache) . levoFLOXaci 2021- No 750mg QD Take 1 Me thodi n 09-[address] (Levaquin) 00:00: 05:59 (750 mg Hos aaron 750 MG 00 :00 total) by l tablet mouth daily for 7 days. doxycycline 2021- No 100mg Q.5D Take 1 Me thodi (VIBRAMYCIN 209-[address] ) 100 MG 00:00: 05:59 (100 mg Hospi ta capsule 00 :00 total) by l mouth 2 (two) times a day for 7 days. levoFLOXaci 2021- No 750mg QD Take 1 Me thodi n 09-[address] (Levaquin) 00:00: 05:59 (750 mg Hos aaron 750 MG 00 :00 total) by l tablet mouth daily for 7 days. doxycycline 2021- No 100mg Q.5D Take 1 Me thodi (VIBRAMYCIN 09-[address] ) 100 MG 00:00: 05:59 (100 mg Hospi ta capsule 00 :00 total) by l mouth 2 (two) times a day for 7 days. doxycycline 2021- No 100mg Q.5D Take 1 Me thodi (VIBRAMYCIN 209-[address] ) 100 MG 00:00: 00:00 (100 mg Hospi ta capsule 00 :00 total) by l mouth 2 (two) times a day for 7 days. levoFLOXaci 2021- No 750mg QD Take 1 Me thodi n 09-[address] (Levaquin) 00:00: 00:00 (750 mg Hos aaron 750 MG 00 :00 total) by l tablet mouth daily for 7 days. doxycycline 2021- No 100mg Q.5D Take 1 Me thodi (VIBRAMYCIN 209-[address] ) 100 MG 00:00: 00:00 (100 mg Hospi ta capsule 00 :00 total) by l mouth 2 (two) times a day for 7 days. levoFLOXaci 2021- No 750mg QD Take 1 Me thodi n 2-09 09-[address] (Levaquin) 00:00: 00:00 (750 mg Hos aaron 750 MG 00 :00 total) by l tablet mouth daily for 7 days. methocarbam 2-0 Yes 500mg Q4H Take 500 M ethodi ol 1-[address] (ROBAXIN) 13:44: mouth Hospita 500 MG 49 every 4 l tablet (four) hours as needed for muscle spasms. SUMAtriptan 2-0 Yes 25mg Take 25 mg Methodi (IMITREX) 08-[address] 25 MG 13:44: once as Hospita tablet 49 needed for l migraine. May repeat in 2 hours if unresolved . Do not exceed 200 mg in 24 hours. folic acid 2021-0 Yes 1mg QD Take 1 mg Me thodi (FOLVITE) 1 08-[address] MG tablet 13:41: daily. In Hos aaron 05 the l morning folic acid 2021-0 Yes [id number] 1000ug QD Take 1 UT (Folvite) 1 1-21 tablet Health MG tablet 00:00: (1,000 mcg 00 total) by mouth 1 (one) time each day. folic acid 2022-0 Yes [id number] 1000ug QD Take 1 UT (Folvite) 1 1-21 tablet Health MG tablet 00:00: (1,000 mcg 00 total) by mouth 1 (one) time each day. ergocalcife 2022-0 Yes [id number] Take 1 UT rol 1-14 capsule Health (Vitamin 00:00: (50,000 D2) 1.25 MG 00 Units (12877 UT) total) by capsule mouth 1 (one) time per week. QUEtiapine 2022-0 Yes [id number] 50mg Take 1 U T (SEROquel) 1-14 tablet (50 Hea lth 50 MG 00:00: mg total) tablet 00 by mouth every night. QUEtiapine 2022-0 Yes [id number] 25mg Take 1 U T (SEROquel) 1-14 tablet (25 Hea lth 25 MG 00:00: mg total) tablet 00 by mouth 1 (one) time each day in the morning. ergocalcife 2022-0 Yes [id number] 45395V Take 1 UT rol 1-14 capsule Health (Vitamin 00:00: (50,000 D2) 1.25 MG 00 Units (90278 UT) total) by capsule mouth 1 (one) time per week. QUEtiapine Yes [id number] 50mg Take 1 U T (SEROquel) 1-14 tablet (50 Hea lth 50 MG 00:00: mg total) tablet 00 by mouth every night. QUEtiapine Yes [id number] 25mg Take 1 U T (SEROquel) 1-14 tablet (25 Hea lth 25 MG 00:00: mg total) tablet 00 by mouth 1 (one) time each day in the morning. naloxone 2022- No [id number] .4mg Administer UT (Narcan) 2 08-14 0.4 mL Health MG/2ML 00:00: 05:59 (0.4 mg injection 00 :00 total) into affected nostril(s) if needed for opioid reversal. May repeat every 2-3 minutes as needed until medical assistance available. naloxone 2022- No [id number] 2mg Inject 5 UT (Narcan) 08-14-15 mL (2 mg Health 0.4 MG/ML 00:00: 05:59 total) injection 00 :00 into the shoulder, thigh, or buttocks if needed for opioid reversal. naloxone 2022- No [id number] .4mg Administer UT (Narcan) 2 08-14 0.4 mL Health MG/2ML 00:00: 05:59 (0.4 mg injection 00 :00 total) into affected nostril(s) if needed for opioid reversal. May repeat every 2-3 minutes as needed until medical assistance available. naloxone 2022- No [id number] 2mg Inject 5 UT (Narcan) 08-14-15 mL (2 mg Health 0.4 MG/ML 00:00: 05:59 total) injection 00 :00 into the shoulder, thigh, or buttocks if needed for opioid reversal. deferasirox 2020-08 Yes [id number] TAKE 3 UT (Jadenu) 2-07 TABLET Health 360 MG 00:00: DAILY tablet 00 deferasirox 2020-08 Yes [id number] TAKE 3 UT (Jadenu) 2-07 TABLET Health 360 MG 00:00: DAILY tablet 00 nortriptyli 2020-08 Yes 10mg QD Take 10 mg [facility]i ne 0-[address] (PAMELOR) 00:00: nightly. Hosp steffanie 10 MG 00 l capsule ondansetron 2020-08 Yes Method i ODT 0-07 st (ZOFRAN-ODT 00:00: Hospit a ) 4 MG 00 l disintegrat ing tablet nortriptyli 2020-08 Yes 10mg QD Take 10 mg Methodi ne 0-[address] (PAMELOR) 00:00: nightly. Hosp steffanie 10 MG 00 l capsule nortriptyli 2020-08 Yes 10mg QD Take 10 mg Methodi ne 0-[address] (PAMELOR) 00:00: nightly. Hosp steffanie 10 MG 00 l capsule ondansetron 2020-08- No Metho di ODT 0-07 03-28 st (ZOFRAN-ODT 00:00: 00:00 Hospi ta ) 4 MG 00 :00 l disintegrat ing tablet ondansetron 2020-08- No Metho di ODT 0-07 03-28 st (ZOFRAN-ODT 00:00: 00:00 Hospi ta ) 4 MG 00 :00 l disintegrat ing tablet Flexeril 5 Yes 5 mg = 1 Mem oria mg oral 8-18 tab, PO, l tablet 10:22: TID, X 5 day, # 15 tab, 0 Refill(s) Flexeril 5 Yes 5 mg = 1 Mem oria mg oral 8-18 tab, PO, l tablet 10:22: TID, X 5 day, # 15 tab, 0 Refill(s) Flexeril No Notes: Memoria 8-18 (Same As: l 08:55: Flexeril) [place] Flexeril No Notes: Memoria 8-18 (Same As: l 08:55: Flexeril) [place] 00 ketOROLAC No 4 days Memor ia 30 mg/mL 8-18 l injectable 08:54: MEDICATION H ermann 00 WASTE Product Size: 30 mg Product Wasted: ___ mg ketOROLAC 0 No 4 days Memor ia 30 mg/mL 03-18 l injectable 08:54: MEDICATION H ermann solution 00 WASTE Product Size: 30 mg Product Wasted: ___ mg Benadryl 2020-0 No 25 mg, Memoria 03-18 Route: l 06:35: IVP, ONCE, [place] Dosing Weight 71.818, kg, Priority: STAT, Start date: 03/18/21 1:35:00 CDT, Stop date: 03/18/21 1:35:00 CDT Benadryl No 25 mg, Memoria 03-18 Route: l 06:35: IVP, ONCE, Dosing Weight 71.818, kg, Priority: STAT, Start date: 03/18/21 1:35:00 CDT, Stop date: 03/18/21 1:35:00 CDT Sodium No 1,000 mL, Memori a Chloride 03-18 1000 l 0.9% 05:02: ml/hr, Stiven (Bolus) IV 00 Infuse Over: 1 hr, Route: IV, 1,000, Drug form: INJ, ONCE, Priority: STAT, Dosing Weight 71.818 kg, Start date: 03/18/21 0:02:00 CDT, Stop date: 03/18/21 0:02:00 CDT, 0 Morphine 0 No Notes: Memoria 03-18 (Same l 05:02: as:MORPhin [place] 00 e Sulfate) Sodium No 1,000 mL, Memori a Chloride 03-18 1000 l 0.9% 05:02: ml/hr, Stiven (Bolus) IV 00 Infuse Over: 1 hr, Route: IV, 1,000, Drug form: INJ, ONCE, Priority: STAT, Dosing Weight 71.818 kg, Start date: 03/18/21 0:02:00 CDT, Stop date: 03/18/21 0:02:00 CDT, 0 Morphine 2020-0 No Notes: Memoria 03-18 (Same l 05:02: as:MORPhin [place] 00 e Sulfate) lisinopril 0 2020- No 5mg QD Take 5 mg M ethodi (PRINIVIL) 02-24 07-[address] 5 mg tablet 11:57: 00:00 daily. Hos aaron 27 :00 l deferasirox 2020-2020- No TAKE 3 Met hodi 360 mg 6-30 10-[address] tablet 00:00: 00:00 DAILY Hospita 00 :00 l deferasirox 2020-0 2020- No TAKE 3 Met hodi 360 mg 6-30 10-[address] tablet 00:00: 00:00 DAILY Hospita 00 :00 l Ketorolac 1-0 No 30 mg, Memori a 01-24 Route: IM, l 17:32: Drug form: Stiven 00 INJ, ONCE, Dosing Weight 71.818, kg, Priority: STAT, Start date: 01/24/21 12:32:00 CDT, Stop date: 01/24/21 12:32:00 CDT Ketorolac 2020-0 No 30 mg, Memori a 01-24 Route: IM, l 17:32: Drug form: Stiven 00 INJ, ONCE, Dosing Weight 71.818, kg, Priority: STAT, Start date: 01/24/21 12:32:00 CDT, Stop date: 01/24/21 12:32:00 CDT Motrin 600 1-0 Yes 600 mg = 1 M emoria mg oral 3-25 tab, PO, l tablet 20:38: Q6H, PRN [place] 00 Pain, take with food, X 5 day, # 20 tab, 0 Refill(s) Motrin 600 1-0 Yes 600 mg = 1 M emoria mg oral 3-25 tab, PO, l tablet 20:38: Q6H, PRN Stiven 00 Pain, take with food, X 5 day, # 20 tab, 0 Refill(s) Motrin 2021-0 No 600 mg, Memoria 3-25 Route: PO, l 18:22: Drug form: Henderson 00 TAB, ONCE, Dosing Weight 68.182, kg, Priority: STAT, Start date: 10/23/20 13:22:00 CDT, Stop date: 10/23/20 13:22:00 CDT Motrin 2021-0 No 600 mg, Memoria 3-25 Route: PO, l 18:22: Drug form: Stiven 00 TAB, ONCE, Dosing Weight 68.182, kg, Priority: STAT, Start date: 10/23/20 13:22:00 CDT, Stop date: 10/23/20 13:22:00 CDT aspirin 81 2020- No 81mg QD Chew 1 Meth lynda mg chewable 09-15 tablet (81 s t tablet 00:00: 00:00 mg total) Hospi ta 00 :00 daily. l pantoprazol 2020- No 40mg QD Take 1 Met hodi e 09-15 tablet (40 st (PROTONIX) 00:00: 00:00 mg total) H ospita 40 MG EC 00 :00 by mouth l tablet daily. zinc No 220mg QD Take 1 Methodi sulfate 09-[address] (ZINCATE) 00:00: 00:00 (220 mg Hosp steffanie 220 (50) mg 00 :00 total) by l capsule mouth daily. ascorbic 2021- No 1000mg Q.5D Take 1 Meth lynda acid, 09-[address] vitamin C, 00:00: 00:00 (1,000 mg H ospita (VITAMIN C) 00 :00 total) by l 1000 MG mouth 2 tablet (two) times a day. ascorbic 2021- No 1000mg Q.5D Take 1 Meth lynda acid, 208-[address] vitamin C, 00:00: 00:00 (1,000 mg H ospita (VITAMIN C) 00 :00 total) by l 1000 MG mouth 2 tablet (two) times a day. ascorbic 2021- No 1000mg Q.5D Take 1 Meth lynda acid, 09-[address] vitamin C, 00:00: 00:00 (1,000 mg H ospita (VITAMIN C) 00 :00 total) by l 1000 MG mouth 2 tablet (two) times a day. Lisinopril Lisinopril Yes CAIT QD TAKE 1/2 UT 5 MG Oral 5 MG Oral 01-30 TABLET BY [facility] Tablet Tablet 00:00: M.D. MOUTH ans 00 EVERY DAY fluticasone 2020- No [id number] SPRAY 2 [facility] propionate 12-04 07-[address] (FLONASE) 00:00: 00:00 INTO EACH Ho spita 50 00 :00 NOSTRIL l mcg/actuati EVERY DAY on nasal spray Deferasirox Deferasirox 2020-0 Yes BINSAH 3 QD TAKE 3 UT 360 MG Oral 360 MG Oral 2-07 ZAHRAA TABLET Physici Tablet Tablet 00:00: M.D. DAILY ans 00 deferasirox 2020-0 Yes Take by Met hodi 360 mg 2-[address] tablet 00:00: Hospita 00 l deferasirox 2020-0 2021- No Take by Me thodi 360 mg 2-10-[address] tablet 00:00: 00:00 [facility]ospita 00 :00 l deferasirox 2020-0 2021- No Take by Me thodi 360 mg 2-10-[address] tablet 00:00: 00:00 Hospita 00 :00 l HYDROcodone HYDROcodone 2020-0 Yes BINSAH 1 TAKE 1 UT -Acetaminop -Acetaminop 1-24 ZAHRAA TABLET Physici hen 10-325 hen 10-325 00:00: M.D. EVERY 6 ans MG Oral MG Oral 00 HOURS Tablet Tablet NEEDED FOR PAIN. HYDROcodone 2020-0 Yes 1{tbl} Q6H Take 1 Me [facility]odi -acetaminop 1-[address] hen ([employer]) 00:00: mouth [facility] 10-325 mg 00 every 6 l per tablet (six) hours. HYDROcodone 2020-0 Yes 1{tbl} Q6H Take 1 Me th[facility] -acetaminop 1-[address] hen ([employer]) 00:00: mouth [facility] ta 10-325 mg 00 every 6 l per tablet (six) hours as needed for moderate pain. HYDROcodone 2020-0 Yes 1{tbl} Q6H Take 1 Me thodi -acetaminop 1-[address] hen ([employer]) 00:00: mouth [facility] 10-325 mg 00 every 6 l per tablet (six) hours as needed for moderate pain. Dilaudid 2018-08 No Notes: Memoria 2-31 Same as l 04:52: Dilaudid Stiven 00 Dilaudid 2018-08 No Notes: Memoria 2-31 Same as l 04:52: Dilaudid Stiven 00 Isolyte S 2018-08 No Notes: Memori a PH-7.4 2-31 (Same as: l (Bolus) IV 03:17: Isolibrahima Maldonado rmann 00 PH7.4, Normosol-R PH 7.4, Plasma-Lyt e A ) Isolyte S 2018-08 No Notes: Memori a PH-7.4 2-31 (Same as: l (Bolus) IV 03:17: Isolyte Luther Maldonado rmann 00 PH7.4, Normosol-R PH 7.4, Plasma-Lyt e A ) Vitamin D Vitamin D 2018-08 Yes GEOVANNI LANGLEY TAKE 1 UT (Ergocalcif (Ergocalcif 1-18 RN OR LPN CAPSULE BY [employer] marge) 1.25 marge) 1.25 00:00: MOUTH ONE ans MG (75421 MG (76776 00 TIME PER UT) Oral UT) Oral WEEK Capsule Capsule ergocalcife 2018-08 Yes 1{capsu Q1W Take 1 M ethodi rol 1-18 le} capsule by st (VITAMIN 00:00: mouth [facility]osp[facility] D2) 50,000 00 every 7 l unit days. capsule ergocalcife 2018-08 Yes 1{capsu Q1W Take 1 M ethodi rol 1-18 le} capsule by st (VITAMIN 00:00: mouth [facility] D2) 50,000 00 every 7 l unit days. capsule Takes on tuesday ergocalcife 2018-08 Yes 1{capsu Q1W Take 1 M ethodi rol 1-18 le} capsule by st (VITAMIN 00:00: mouth [facility]osp[facility] D2) 50,000 00 every 7 l unit days. capsule Takes on tuesday hydroxyurea 2018-08 Yes 2000mg QD Take 4 Me thodi (HYDREA) 0-[address] 500 mg 00:00: (2,000 mg Hospit a capsule 00 total) by l mouth daily for 30 days. hydroxyurea 2018-08 Yes 2000mg QD Take 4 Me thodi (HYDREA) 0-[address] 500 mg 00:00: (2,000 mg Hospit a capsule 00 total) by l mouth daily for 30 days. hydroxyurea 2018-08 Yes 2000mg QD Take 4 Me thodi (HYDREA) 0-[address] 500 mg 00:00: (2,000 mg Hospit a capsule 00 total) by l mouth daily for 30 days. gabapentin 2019-0 Yes 300mg QD Take 300 Me thodi (NEURONTIN) 5-[address] 300 mg 00:00: mouth [facility]osp[facility] capsule 00 every l evening. gabapentin 2019-0 Yes 300mg QD Take 300 Me [facility] (NEURONTIN) 5-[address] 300 mg 00:00: mouth [facility] capsule 00 every l evening. gabapentin 2019-0 Yes 300mg QD Take 300 Me [facility] (NEURONTIN) 5-[address] 300 mg 00:00: mouth [facility] capsule 00 every l evening. Folic Acid Folic Acid Yes BINSAH 1 QD TAKE 1 UT 1 MG Oral 1 MG Oral ZAHRAA TABLET P [facility] Tablet Tablet M.D. DAILY ans Hydroxyurea Hydroxyurea Yes BINSAH QD TAKE 4 UT 500 MG Oral 500 MG Oral ZAHRAA CAPSULE [facility] Capsule Capsule M.D. DAILY ans Methocarbam Methocarbam Yes GEOVANNI KORIN TAKE 1 UT ol 500 MG ol 500 MG RN OR LPN TABLET 2 P [facility] Oral Tablet Oral Tablet TIMES ans DAILY NEEDED FOR SPASM. Gabapentin Gabapentin Yes UT 300 MG Oral 300 MG Oral P [facility] Capsule Capsule ans Immunizations Ordered Immunization Filled Immunization Date Status Commen ts Source Name Name Tdap 2022-05-06 Completed [facility] 00:00:00 [facility] Gardasil-9 2020-12-22 Completed [facility] 00:00:00 [facility] Gardasil-9 2020-12-22 Completed [facility] 00:00:00 [facility] Gardasil-9 2020-12-22 Completed [facility] 00:00:00 [facility] HPV 9-Valent 2020-12-22 [facility]pleted [facility] 00:00:00 HPV 9-Valent 2020-12-22 [facility] 00:00:00 Fluzone Quadrivalent 2019 [facility] 0.5 ML Intramuscular 00:00:00 Suspension Prefilled Syringe FLUZONE QUAD PF 2019 Completed [facility] 00:[facility] Influenza Trivalent 2019 Completed [facility] FLUZONE QUAD PF 2019 Completed [facility] 00:00:00 [facility] Influenza Trivalent 2019 Completed [facility] 00:[facility] FLUZONE QUAD PF 2019 Completed [facility] 00:[facility] Influenza Trivalent 2019 Completed [facility] Influ[facility], seasonal, 2019 [facility] Influenza, 2019 [facility] injectable, 00:00:00 quadrivalent, preservative free (afluria, fluarix, flulaval, fluzone) Influenza, seasonal, 2019 [facility]:00 Influenza, 2019 Completed [facility] injectable, 00:00:00 quadrivalent, preservative free (afluria, fluarix, flulaval, fluzone) FLUBLOK QUAD PF 2019-05-01 Completed [facility] 00:[facility]:00 [facility] FLUBLOK QUAD PF 2019-05-01 Completed [facility] 00:00:00 [facility] FLUBLOK QUAD PF 2019-05-01 Completed [facility] 00:00:00 [facility] Influenza, 2019-05-01 Completed [facility] quadrivalent, 00:00:00 injectable, preservative free (flublok) Influenza, 2019-05-01 Completed [facility] quadrivalent, 00:00:00 injectable, preservative free (flublok) FLUZONE QUAD PF 2018-05-04 Completed [facility] 00[facility]:00 [facility] Meningcoccal Group B 2018-05-04 Completed [facility] 4 Strain (3 Dose) 00:00:00 Hospita l FLUZONE QUAD PF 2018-05-04 Completed [facility] 00:00:00 [facility] Meningcoccal Group B 2018-05-04 Completed [facility] 4 Strain (3 Dose) 00:00:00 [facility] Meningcoccal Group B 2018-05-04 Completed [facility] 4 Strain (3 Dose) 00:00:00 [facility] FLUZONE QUAD PF 2018-05-04 Completed [facility] 00:[facility]:00 [facility] Influenza, 2018-05-04 Completed [facility] injectable, 00:00:00 quadrivalent, preservative free (afluria, fluarix, flulaval, fluzone) Influenza, 2018-05-04 Completed [facility] injectable, 00:00:00 quadrivalent, preservative free (afluria, fluarix, flulaval, fluzone) Meningococcal B, 2018-05-04 [facility]com[facility] 00:00:00 Influenza, 2018-05-04 Completed [facility] injectable, 00:00:00 quadrivalent, preservative free (afluria, fluarix, flulaval, fluzone) Influenza, 2018-05-04 Completed [facility] injectable, 00:00:00 quadrivalent, preservative free (afluria, fluarix, flulaval, fluzone) Meningococcal B, 2018-05-04 [facility]com[facility] 00:[facility]:00 Meningcoccal Group B 2017-11-08 Completed [facility] 4 Strain (3 Dose) 00:00:00 Hospita l Meningcoccal Group B 2017-11-08 Completed [facility] 4 Strain (3 Dose) 00:00:00 Hospita l Meningcoccal Group B 2017-11-08 Completed [facility] 4 Strain (3 Dose) 00:00:00 [facility] l Meningococcal B, 2017-11-08 [facility] 00:[facility]:00 Meningococcal B, 2017-11-08 [facility]com[facility] 00:00:00 Meningcoccal Group B 2017-07-12 Completed [facility] 4 Strain (3 Dose) 00:00:00 Hospita l Meningcoccal Group B 2017-07-12 Completed [facility] 4 Strain (3 Dose) 00:00:00 Hospita l Meningcoccal Group B 2017-07-12 Completed [facility] 4 Strain (3 Dose) 00:00:00 [facility]ita l Meningococcal B, 2017-07-12 [facility] 00:[facility]:00 Meningococcal B, 2017-07-12 [facility] 00:[facility]:00 FLUZONE QUAD PF 2017-05-31 Completed [facility] 00:[facility]:00 [facility] FLUZONE QUAD PF 2017-05-31 Completed [facility] 00:00:00 [facility] FLUZONE QUAD PF 2017-05-31 Completed [facility] 00:[facility]:00 [facility] Influenza, 2017-05-31 Completed [facility] injectable, 00:00:00 quadrivalent, preservative free (afluria, fluarix, flulaval, fluzone) Influenza, 2017-05-31 Completed [facility] injectable, 00:00:00 quadrivalent, preservative free (afluria, fluarix, flulaval, fluzone) Influenza, 2017-05-31 Completed [facility] injectable, 00:00:00 quadrivalent, preservative free (afluria, fluarix, flulaval, fluzone) Influenza, 2017-05-31 Completed [facility] injectable, 00:00:00 quadrivalent, preservative free (afluria, fluarix, flulaval, fluzone) Influenza, 2016-07-07 Completed [facility] Unspecified 00:00:00 Hospital Influenza Trivalent 2016-07-07 Completed [facility] 00:[facility] Influenza, 2016-07-07 Completed [facility] Unspecified 00:00:00 Hospital Influenza Trivalent 2016-07-07 Completed [facility] 00:[facility] Influenza, 2016-07-07 Completed [facility] Un[facility] 00:00:00 Hospital Influenza Trivalent 2016-07-07 Completed [facility] Influenza, seasonal, 2016-07-07 [facility]:00 Influenza, seasonal, 2016-07-07 [facility]:00:00 Influenza, 2015-10-09 Completed [facility] Un[facility] 00:00:00 [facility] Influenza Trivalent 2015-10-09 Completed [facility] 00:[facility] Influenza, 2015-10-09 Completed [facility] Unspecified 00:00:00 Hospital Influenza Trivalent 2015-10-09 Completed [facility] 00:[facility] Influenza, 2015-10-09 Completed [facility] Unspecified 00:00:00 Hospital Influenza Trivalent 2015-10-09 Completed [facility] Influenza, seasonal, 2015-10-09 [facility]:00 Influenza, seasonal, 2015-10-09 [facility]:00 Influenza, 2014-05-29 Completed [facility] Un[facility] 00:00:00 [facility] Influenza Trivalent 2014-05-29 Completed [facility] 00:[facility] Meningococcal 2014-05-29 Completed [facility] Conjugate 00:00:00 Hospital Influenza, 2014-05-29 Completed [facility] Unspecified 00:00:00 Hospital Influenza Trivalent 2014-05-29 Completed [facility] 00:00:00 [facility] Meningococcal 2014-05-29 Completed [facility] Conjugate 00:00:00 Hospital Influenza, 2014-05-29 Completed [facility] Unspecified 00:00:00 Hospital Influenza Trivalent 2014-05-29 Completed [facility] 00:00:[facility] Meningococcal 2014-05-29 Completed [facility] Conjugate 00:00:00 [facility] Influenza, seasonal, 2014-05-29 [facility]:00 Meningococcal MCV4O 2014-05-29 [facility]pleted [facility] Influenza, seasonal, 2014-05-29 [facility] 00:00:00 Meningococcal MCV4O 2014-05-29 [facility]pleted [facility] 00:[facility]:00 Influenza, seasonal, 2013-08-08 [facility]pleted [facility] inject[facility], 00:00:00 preservative free Meningococcal, MCV4, 2013-08-08 Completed [facility] unspecified conjugate 00:00:00 formulation(groups A, C, Y and W-135) Influenza (IM) 2013-08-08 Completed [facility] Preservative Free 00:00:00 [facility]ospita l Influenza (IM) 2013-08-08 Completed [facility] Preservative Free 00:00:00 Hospita l Meningococcal MCV4P 2013-08-08 Completed [facility] Meningococcal ACWY, 2013-08-08 Completed [facility] Unspecified 00:00:00 Hospital Influenza (IM) 2013-08-08 Completed [facility] Preservative Free 00:00:00 Hospita l Influenza (IM) 2013-08-08 Completed [facility] Preservative Free 00:00:00 Hospita l Meningococcal MCV4P 2013-08-08 Completed [facility] 00:[facility] Hospital Meningococcal ACWY, 2013-08-08 Completed [facility] Unspecified 00:00:00 Hospital Meningococcal ACWY, 2013-08-08 Completed [facility] Unspecified 00:00:00 Hospital Influenza (IM) 2013-08-08 Completed [facility] Preservative Free 00:00:00 Hospita l Influenza (IM) 2013-08-08 Completed [facility] Preservative Free 00:00:00 Hospita l Meningococcal MCV4P 2013-08-08 Completed [facility] Influenza, seasonal, 2013-08-08 [facility] 00:[facility]:00 Meningococcal, 2013-08-08 Completed [facility] Unknown Serogroups 00:00:00 Influenza, seasonal, 2013-08-08 [facility] inject[facility], 00:00:00 preservative free Influenza, seasonal, 2013-08-08 [facility], 00:00:00 preservative free Meningococcal MCV4P 2013-08-08 [facility]pleted [facility] 00:[facility]:00 Influenza, seasonal, 2013-08-08 [facility] injectable 00:00:00 Meningococcal, 2013-08-08 Completed [facility] Unknown Serogroups 00:00:00 Influenza, seasonal, 2013-08-08 [facility] inject[facility], 00:00:00 preservative free Influenza, seasonal, 2013-08-08 [facility] inject[facility], 00:00:00 preservative free Meningococcal MCV4P 2013-08-08 [facility]pleted [facility] 00:[facility]:00 Meningococcal, MCV4, 2013-03-20 [facility]pleted [facility] unspecified conjugate 00:00:00 formulation(groups A, C, Y and W-135) Boostrix 5-2.5-18.5 2013-03-20 [facility] Intramuscular 00:00:00 Suspension Varivax 1350 2013-03-20 [facility]pleted [facility] PFU/0.5ML 00:00:00 Subcutaneous Injectable Tdap 2013-03-20 Completed [facility] 00:[facility]:00 [facility] Meningococcal MCV4P 2013-03-20 Completed [facility] 00:00:00 [facility] Meningococcal ACWY, 2013-03-20 Completed [facility] Unspecified 00:00:00 Hospital Tdap 2013-03-20 Completed [facility] 00:[facility]:00 [facility] Varicella 2013-03-20 Completed [facility] 00:00:00 [facility] Varicella 2013-03-20 Completed [facility] 00:00:00 Hospital Tdap 2013-03-20 Completed [facility] 00:00:00 [facility] Meningococcal MCV4P 2013-03-20 Completed [facility] 00:00:00 Hospital Meningococcal ACWY, 2013-03-20 Completed [facility] Unspecified 00:00:00 Hospital Tdap 2013-03-20 Completed [facility] 00:[facility]:00 [facility] Varicella 2013-03-20 Completed [facility] 00:00:00 [facility] Varicella 2013-03-20 Completed [facility] 00[facility]:00 [facility] Meningococcal ACWY, 2013-03-20 Completed [facility] Unspecified 00:00:00 Hospital Tdap 2013-03-20 Completed [facility] 00:[facility]:00 [facility] Varicella 2013-03-20 Completed [facility] 00:00:00 [facility] Varicella 2013-03-20 Completed [facility] 00:00:00 Hospital Tdap 2013-03-20 Completed [facility] 00:[facility]:00 [facility] Meningococcal MCV4P 2013-03-20 Completed [facility] 00:[facility]:00 [facility] Meningococcal, 2013-03-20 Completed [facility] Unknown Serogroups 00:00:00 Tdap 2013-03-20 Completed [facility] 00:00:00 Varicella 2013-03-20 [facility]pleted [facility] 00:00:00 Meningococcal MCV4P 2013-03-20 [facility]pleted [facility] 00:00:00 Meningococcal, 2013-03-20 Completed [facility] Unknown Serogroups 00:00:00 Tdap 2013-03-20 Completed [facility] 00:00:00 Varicella 2013-03-20 [facility]pleted [facility] 00:00:00 Meningococcal MCV4P 2013-03-20 [facility] 00:[facility]:00 influenza virus 2012-06-08 [facility] vaccine, unspecified 00:00:00 formulation Influenza Trivalent 2012-06-08 Completed [facility] 00:[facility] Influenza, 2012-06-08 Completed [facility] Un[facility] 00:00:00 Hospital Influenza Trivalent 2012-06-08 Completed [facility] 00:00:00 [facility] Influenza, 2012-06-08 Completed [facility] Unspecified 00:00:00 Hospital Influenza Trivalent 2012-06-08 Completed [facility] 00:00:00 [facility] Influenza, 2012-06-08 Completed [facility] Unspecified 00:00:00 [facility] Influenza, seasonal, 2012-06-08 [facility] 00:00:00 Influenza, 2012-06-08 Completed [facility] Unspecified 00:00:00 Influenza, seasonal, 2012-06-08 [facility]pleted [facility] injectable 00:00:00 Influenza, seasonal, 2012-06-08 [facility] inject[facility] 00:00:00 Influenza, 2012-06-08 Completed [facility] Unspecified 00:00:00 Influenza, seasonal, 2012-06-08 [facility] 00:00:00 Influenza, seasonal, 2011-05-27 [facility]pleted [facility] injectable, 00:00:00 preservative free Influenza (IM) 2011-05-27 Completed [facility] Preservative Free 00:00:00 [facility]ospita l Influenza (IM) 2011-05-27 Completed [facility] Preservative Free 00:00:00 [facility]ospita l Influenza (IM) 2011-05-27 Completed [facility] Preservative Free 00:00:00 [facility]ospita l Influenza, seasonal, 2011-05-27 [facility]:00:00 Influenza, seasonal, 2011-05-27 [facility] inject[facility], 00:00:00 preservative free Influenza, seasonal, 2011-05-27 [facility] 00:00:00 Influenza, seasonal, 2011-05-27 [facility], 00:00:00 preservative free PCV 13, pneumococcal 2010-05-14 Completed [facility] conjugate vaccine, 13 00:00:00 valent Influenza, seasonal, 2010-05-14 [facility]pleted [facility] injectable, 00:00:00 preservative free Influenza (IM) 2010-05-14 Completed [facility] Preservative Free 00:00:00 Hospita l Pneumococcal 2010-05-14 Completed [facility] Conjugate 13-Valent 00:00:00 Hospi heydi Influenza (IM) 2010-05-14 Completed [facility] Preservative Free 00:00:00 Hospita l Pneumococcal 2010-05-14 Completed [facility] Conjugate 13-Valent 00:00:00 Hospi heydi Pneumococcal 2010-05-14 Completed [facility] Conjugate 13-Valent 00:00:00 Hospi heydi Influenza (IM) 2010-05-14 Completed [facility] Preservative Free 00:00:00 Hospita l Influenza, seasonal, 2010-05-14 [facility] 00:00:00 Pneumococcal 2010-05-14 [facility]pleted [facility] Conjugate PCV 13 00:00:00 Influenza, seasonal, 2010-05-14 [facility]pleted [facility] inject[facility], 00:00:00 preservative free Influenza, seasonal, 2010-05-14 [facility]pleted [facility] 00:00:00 Pneumococcal 2010-05-14 Completed [facility] Conjugate PCV 13 00:00:00 Influenza, seasonal, 2010-05-14 [facility]pleted [facility], 00:00:00 preservative free Influenza, seasonal, 2008-05-30 Completed [facility] inject[facility], 00:00:00 preservative free Influenza (IM) 2008-05-30 Completed [facility] Preservative Free 00:00:00 Hospita l Influenza (IM) 2008-05-30 Completed [facility] Preservative Free 00:00:00 Hospita l Influenza (IM) 2008-05-30 Completed [facility] Preservative Free 00:00:00 Hospita l Influenza (IM) 2008-05-30 Completed [facility] Preservative Free 00:00:00 Hospita l Influenza (IM) 2008-05-30 Completed [facility] Preservative Free 00:00:00 Hospita l Influenza (IM) 2008-05-30 Completed [facility] Preservative Free 00:00:00 [facility]ospita l Influenza, seasonal, 2008-05-30 [facility]:00:00 Influenza, seasonal, 2008-05-30 [facility] inject[facility], 00:00:00 preservative free Influenza, seasonal, 2008-05-30 [facility], 00:00:00 preservative free Influenza, seasonal, 2008-05-30 [facility] 00:00:00 Influenza, seasonal, 2008-05-30 [facility], 00:00:00 preservative free Influenza, seasonal, 2008-05-30 [facility], 00:00:00 preservative free Influenza, seasonal, 2007-05-09 [facility]pleted [facility] 00:00:00 Influenza, seasonal, 2007-05-09 [facility] inject[facility], 00:00:00 preservative free Influenza, seasonal, 2007-05-09 [facility]pleted [facility] 00:00:00 Influenza, seasonal, 2007-05-09 [facility], 00:00:00 preservative free Influenza, seasonal, 2007-05-09 [facility]pleted [facility] inject[facility], 00:00:00 preservative free Influenza (IM) 2007-05-09 Completed [facility] Preservative Free 00:00:00 Hospita l Influenza (IM) 2007-05-09 Completed [facility] Preservative Free 00:00:00 Hospita l Influenza (IM) 2007-05-09 Completed [facility] Preservative Free 00:00:00 [facility]ospita l Influenza, seasonal, 2006-05-19 [facility]:00 Influenza, seasonal, 2006-05-19 [facility] inject[facility], 00:00:00 preservative free Influenza, seasonal, 2006-05-19 [facility], 00:00:00 preservative free Influenza, seasonal, 2006-05-19 [facility] 00:00:00 Influenza, seasonal, 2006-05-19 [facility], 00:00:00 preservative free Influenza, seasonal, 2006-05-19 [facility], 00:00:00 preservative free Influenza, seasonal, 2006-05-19 [facility] inject[facility], 00:00:00 preservative free Influenza (IM) 2006-05-19 Completed [facility] Preservative Free 00:00:00 Hospita l Influenza (IM) 2006-05-19 Completed [facility] Preservative Free 00:00:00 Hospita l Influenza (IM) 2006-05-19 Completed [facility] Preservative Free 00:00:00 Hospita l Influenza (IM) 2006-05-19 Completed [facility] Preservative Free 00:00:00 Hospita l Influenza (IM) 2006-05-19 Completed [facility] Preservative Free 00:00:00 Hospita l Influenza (IM) 2006-05-19 Completed [facility] Preservative Free 00:00:00 [facility] l Polio, Unspecified 2005-03-09 [facility] 2005-03-09 [facility] 00:00:00 MMR 2005-03-09 [facility] 00:00:00 Polio, Unspecified 2005-03-09 [facility]:00 DTaP 2005-03-09 [facility] 00:00:00 MMR 2005-03-09 [facility] 00:00:00 Ipol Injection 2005-03-09 [facility]pleted [facility] Inject[facility]:00 M-M-R II Subcutaneous 2005-03-09 [facility] Injectable 00:00:00 DTaP, unspecified 2005-03-09 [facility] formulation 00:00:00 DTaP, Unspecified 2005-03-[address] [facility] MMR 2005-03-09 Completed [facility] 00:[facility] IPV 2005-03-09 Completed [facility] 00:00:00 [facility] DTaP, Unspecified 2005-03-[address] 00:[facility] MMR 2005-03-09 Completed [facility] 00:00:00 Hospital IPV 2005-03-09 Completed [facility] 00:00:00 [facility] MMR 2005-03-09 Completed [facility] 00:00:00 Hospital IPV 2005-03-09 Completed [facility] 00:00:00 Hospital DTaP, Unspecified 2005-03-[address] 00:[facility]:00 [facility] Meningococcal, 2004-12-16 Completed [facility] Unknown Serogroups 00:00:00 Pneumococcal 2004-12-16 [facility]pleted [facility] Polysaccharide PPV23 00:00:00 Meningococcal MPSV4 2004-12-16 [facility]pleted [facility] 00:[facility]:00 Meningococcal, 2004-12-16 [facility]pleted [facility] Unknown Serogroups 00:00:00 Pneumococcal 2004-12-16 [facility] Polysaccharide PPV23 00:00:00 Meningococcal MPSV4 2004-12-16 [facility]pleted [facility] 00:[facility]:00 Meningo (Menomune) 2004-12-16 [facility] 00:[facility]:00 Pneumococcal 2004-12-16 [facility] polysaccharide 00:00:00 vaccine, 23 valent Meningococcal 2004-12-16 Completed [facility] Polysaccharide 00:00:00 [facility] Meningococcal 2004-12-16 Completed [facility] Polysaccharide 00:00:00 [facility] Pneumococcal 2004-12-16 Completed [facility] Polysaccharide 00:00:00 [facility] Meningococcal 2004-12-16 Completed [facility] Polysaccharide 00:00:00 [facility] Meningococcal 2004-12-16 Completed [facility] Polysaccharide 00:00:00 [facility] Pneumococcal 2004-12-16 Completed [facility] Polysaccharide 00:00:00 [facility] Meningococcal 2004-12-16 Completed [facility] Polysaccharide 00:00:00 [facility] Pneumococcal 2004-12-16 Completed [facility] Polysaccharide 00:00:00 Hospital Meningococcal 2004-12-16 Completed [facility] Polysaccharide 00:00:00 [facility] Influenza, seasonal, 2003-06-05 [facility]:00 Influenza, seasonal, 2003-06-05 [facility] inject[facility], 00:00:00 preservative free Influenza, seasonal, 2003-06-05 [facility] inject[facility], 00:00:00 preservative free Influenza, seasonal, 2003-06-05 [facility] inject[facility] 00:00:00 Influenza, seasonal, 2003-06-05 [facility] inject[facility], 00:00:00 preservative free Influenza, seasonal, 2003-06-05 [facility], 00:00:00 preservative free Influenza, seasonal, 2003-06-05 [facility] inject[facility], 00:00:00 preservative free Influenza (IM) 2003-06-05 Completed [facility] Preservative Free 00:00:00 Hospita l Influenza (IM) 2003-06-05 Completed [facility] Preservative Free 00:00:00 Hospita l Influenza (IM) 2003-06-05 Completed [facility] Preservative Free 00:00:00 Hospita l Influenza (IM) 2003-06-05 Completed [facility] Preservative Free 00:00:00 Hospita l Influenza (IM) 2003-06-05 Completed [facility] Preservative Free 00:00:00 Hospita l Influenza (IM) 2003-06-05 Completed [facility] Preservative Free 00:00:00 [facility]ita [facility] Influenza, seasonal, 2002 [facility]:00 Influenza, seasonal, 2002 [facility] 00:00:00 Influenza, 2002 [facility] Unspecified 00:00:00 Influenza, seasonal, 2002 [facility] inject[facility] 00:00:00 Influenza, seasonal, 2002 [facility] inject[facility] 00:00:00 Influenza, 2002 [facility] Unspecified 00:00:00 influenza virus 2002 [facility] vaccine, unspecified 00:00:00 formulation Influenza Trivalent 2002 Completed [facility] 00:[facility]:00 [facility] Influenza, 2002 Completed [facility] Unspecified 00:00:00 Hospital Influenza Trivalent 2002 Completed [facility] 00:00:00 Hospital Influenza, 2002 Completed [facility] Influenza Trivalent 2002 Completed [facility] 00:[facility] Influenza, 2002 Completed [facility] 00:[facility] Influenza, seasonal, 2001-05-30 [facility] inject[facility] 00:[facility]:00 Meningococcal, 2001-05-30 [facility] Unknown Serogroups 00:00:00 Pneumococcal 2001-05-30 [facility]pleted [facility] Polysaccharide PPV23 00:00:00 Influenza, seasonal, 2001-05-30 [facility] injectable 00:00:00 Influenza, 2001-05-30 [facility]pleted [facility] Unspecified 00:00:00 Meningococcal MPSV4 2001-05-30 [facility]pleted [facility] 00:[facility] Influenza, seasonal, 2001-05-30 [facility] injectable 00:00:00 Meningococcal, 2001-05-30 [facility]pleted [facility] Unknown Serogroups 00:00:00 Pneumococcal 2001-05-30 Completed [facility] Polysaccharide PPV23 00:00:00 Influenza, seasonal, 2001-05-30 [facility]pleted [facility] injectable 00:00:00 Influenza, 2001-05-30 [facility]pleted [facility] Unspecified 00:00:00 Meningococcal MPSV4 2001-05-30 [facility]pleted [facility] 00:[facility]:00 influenza virus 2001-05-30 [facility]pleted [facility] vaccine, unspecified 00:00:00 formulation Meningo (Menomune) 2001-05-30 [facility]pleted [facility] 00:[facility]:00 Pneumococcal 2001-05-30 [facility]pleted [facility] polysaccharide 00:00:00 vaccine, 23 valent Influenza Trivalent 2001-05-30 Completed [facility] 00:[facility]:00 [facility] Influenza, 2001-05-30 Completed [facility] 00:[facility] Meningococcal 2001-05-30 Completed [facility] Polysaccharide 00:00:00 Hospital Meningococcal 2001-05-30 Completed [facility] Polysaccharide 00:00:00 Hospital Pneumococcal 2001-05-30 Completed [facility] Polysaccharide 00:00:00 Hospital Influenza Trivalent 2001-05-30 Completed [facility] 00:00:00 [facility] Influenza, 2001-05-30 Completed [facility] 00:00:00 [facility] Meningococcal 2001-05-30 Completed [facility] Polysaccharide 00:00:00 Hospital Meningococcal 2001-05-30 Completed [facility] Polysaccharide 00:00:00 Hospital Pneumococcal 2001-05-30 Completed [facility] Polysaccharide 00:00:00 Hospital Meningococcal 2001-05-30 Completed [facility] Polysaccharide 00:00:00 Hospital Pneumococcal 2001-05-30 Completed [facility] Polysaccharide 00:00:00 Hospital Influenza Trivalent 2001-05-30 Completed [facility] 00:00:00 [facility] Influenza, 2001-05-30 Completed [facility] 00:[facility]:00 [facility] Meningococcal 2001-05-30 Completed [facility] Polysaccharide 00:00:00 [facility] Pneumococcal 2000-08-09 [facility] Conjugate PCV 13 00:00:00 Pneumococcal 2000-08-09 Completed [facility] Conjugate PCV 7 00:00:00 Pneumococcal 2000-08-09 Completed [facility] Conjugate PCV 13 00:00:00 Pneumococcal 2000-08-09 Completed [facility] Conjugate PCV 7 00:00:00 Pneumo (Prevnar 7) 2000-08-09 Completed [facility] 00:[facility]:00 Pneumococcal 2000-08-09 Completed [facility] Con[facility]ate 00:00:00 [facility] Pneumococcal 2000-08-09 Completed [facility] Conjugate 00:00:00 Hospital Pneumococcal 2000-08-09 Completed [facility] Conjugate 00:00:00 Hospital Vital Signs Vital Name Observation Time Observation Value Comments Source Systolic blood 2022-04-06 101 mm[Hg] [facility] pressure 21:15:00 Diastolic blood 2022-04-06 56 mm[Hg] [facility] pressure 21:15:00 Heart rate 2022-04-06 74 /min [facility] 21:15:00 Body temperature 2022-04-06 36.83 M[facility]le [facility] 21:15:00 Oxygen saturation 2022-04-06 99 /min [facility] in Arterial blood 21:15:00 by Pulse oximetry Respiratory rate 2022-04-06 16 /min [facility] 19:12:00 Body height 2022-04-06 167.6 cm [facility] 19:12:00 Body weight 2022-04-06 68.947 kg [facility] 19:12:00 BMI 2022-04-06 24.53 kg/m2 [facility] 19:12:00 Systolic blood 2022-05-06 109 mm[Hg] [facility] pressure 08:55:00 Hospital Diastolic blood 2022-05-06 58 mm[Hg] [facility] pressure 08:55:00 Hospital Heart rate 2022-05-06 89 /min [facility] 08:55:00 Hospital Body temperature 2022-05-06 36.78 Machelle [facility] 08:55:00 [facility] Respiratory rate 2022-05-06 19 /min [facility] 08:55:00 Hospital Oxygen saturation 2022-05-06 99 /min [facility] in Arterial blood 08:55:00 Hospital by Pulse oximetry Height 2022-05-06 167.64 [facility] 02[facility]00 [facility] Calculated 2022-05-06 [facility] 02:30:00 Weight 2022-05-06 [facility] 02:30:00 Systolic (mm Hg) 2022-05-06 [facility] 02:30:00 Diastolic (mm Hg) 2022-05-06 [facility] 02:30:00 Heart Rate 2022-05-06 [facility] 02:30:00 Respitory Rate 2022-05-06 [facility] 02:30:00 Temperature Oral 2022-05-06 98.2 F [facility] (F) 02:30:00 Systolic (mm Hg) 2022-04-19 [facility] 17:00:00 Diastolic (mm Hg) 2022-04-19 [facility] 17:00:00 Temperature Oral 2022-04-19 98.1 F [facility] (F) 17:00:00 Systolic (mm Hg) 2022-04-19 [facility] 16:37:00 Diastolic (mm Hg) 2022-04-19 [facility] 16:37:00 Heart Rate 2022-04-19 [facility] 16[facility]37:00 Respitory Rate 2022-04-19 [facility] 16:37:00 Height 2022-04-19 167.64 cm [facility] 11:59:00 BMI Calculated 2022-04-19 [facility] 11:59:00 Weight 2022-04-19 [facility] 11:59:00 Systolic (mm Hg) 2022-04-19 [facility] 11:59:00 Diastolic (mm Hg) 2022-04-19 [facility] 11:59:00 Heart Rate 2022-04-19 [facility] 11:59:00 Respitory Rate 2022-04-19 [facility] 11:59:00 Temperature Oral 2022-04-19 98.4 F [facility] (F) 11:59:00 Heart Rate 2022-01-17 [facility] 12:59:09 Respitory Rate 2022-01-17 [facility] 12:59:09 Systolic (mm Hg) 2022-01-17 [facility] 12:59:05 Diastolic (mm Hg) 2022-01-17 [facility] 12:59:05 Heart Rate 2022-01-17 [facility] 12:59:05 Temperature Oral 2022-01-17 98.1 F [facility] (F) 12:59:01 Respitory Rate 2022-01-17 [facility] 12:00:00 Heart Rate 2022-01-17 [facility] 10:02:52 Respitory Rate 2022-01-17 [facility] 10:02:52 Systolic (mm Hg) 2022-01-17 [facility] 10:02:21 Diastolic (mm Hg) 2022-01-17 [facility] 10:02:21 Temperature Oral 2022-01-17 98 F [facility] (F) 10:02:20 Temperature Oral 2022-01-17 101.3 F [facility] (F) 04:32:56 Diastolic (mm Hg) 2022-01-17 [facility] 04:32:48 Systolic (mm Hg) 2022-01-17 [facility] 04:32:48 Height 2022-01-12 167.64 cm [facility] 00:35:00 Weight 2022-01-12 [facility] 00:35:00 BMI Calculated 2022-01-12 [facility] 00:35:00 Height 2022-01-11 167.64 cm [facility] 07:28:00 BMI Calculated 2022-01-11 [facility] 07:28:00 Weight 2022-01-11 [facility] 07:28:00 Systolic (mm Hg) 2022-01-10 [facility] 16:21:00 Diastolic (mm Hg) 2022-01-10 [facility] 16:21:00 Respitory Rate 2022-01-10 [facility] 16:21:00 Temperature Oral 2022-01-10 98 F [facility] (F) 16:21:00 Systolic (mm Hg) 2022-01-10 [facility] 13:25:00 Diastolic (mm Hg) 2022-01-10 [facility] 13:25:00 Respitory Rate 2022-01-10 [facility] 13:25:00 Height 2022-01-10 167.64 cm [facility] 12:56:00 BMI Calculated 2022-01-10 [facility] 12:56:00 Weight 2022-01-10 [facility] 12:56:00 Systolic (mm Hg) 2022-01-10 [facility] rmann 12:56:00 Diastolic (mm Hg) 2022-01-10 [facility] Eric ermann 12:56:00 Heart Rate 2022-01-10 [facility] 12:56:00 Respitory Rate 2022-01-10 Vishal Tom shakira 12:56:00 Temperature Oral 2022-01-10 97.2 F [facility] (F) 12:56:00 Systolic blood 2021-10-31 111 mm[Hg] [facility] pressure 15:48:18 Hospital Diastolic blood 2021-10-31 76 mm[Hg] [facility] pressure 15:48:18 Hospital Heart rate 2021-10-31 105 /min [facility] 15:48:18 Hospital Body temperature 2021-10-31 37.11 M[facility]le [facility] 15:48:18 Hospital Respiratory rate 2021-10-31 22 /min [facility] 15:48:18 Hospital Oxygen saturation 2021-10-31 97 /min [facility] in Arterial blood 15:48:18 Hospital by Pulse oximetry Body height 2021-10-26 167.6 cm [facility] 16:25:00 Hospital Body weight 2021-10-26 70.761 kg [facility] 16:25:00 Hospital BMI 2021-10-26 25.18 kg/m2 [facility] 16:25:00 Hospital Heart rate 2021-09-02 154 /min [facility] 03:02:00 Hospital Systolic blood 2021-09-02 137 mm[Hg] [facility] pressure 01:29:23 Hospital Diastolic blood 2021-09-02 65 mm[Hg] [facility] pressure 01:29:23 Hospital Body temperature 2021-09-02 38.78 M[facility]le [facility] 01:29:23 Hospital Respiratory rate 2021-09-02 16 /min [facility] 01:29:23 Hospital Oxygen saturation 2021-09-02 93 /min [facility] in Arterial blood 01:29:23 Hospital by Pulse oximetry Body height 2021-08-31 167.6 cm [facility] 19:38:00 Hospital Body weight 2021-08-31 70.761 kg [facility] 19:38:00 Hospital BMI 2021-08-31 25.18 kg/m2 [facility] 19:38:00 Hospital Weight 2021-03-18 [facility] 04:56:00 Systolic (mm Hg) 2021-03-18 [facility] 04:56:00 Diastolic (mm Hg) 2021-03-18 [facility] 04:56:00 Heart Rate 2021-03-18 [facility] 04:56:00 Respitory Rate 2021-03-18 [facility] 04:56:00 Temperature Oral 2021-03-18 97.8 F [facility] (F) 04:56:00 Respitory Rate 2021-01-24 [facility] 18:19:00 Heart Rate 2021-01-24 [facility] 18:19:00 Systolic (mm Hg) 2021-01-24 [facility] 18:19:00 Diastolic (mm Hg) 2021-01-24 [facility] 18:19:00 Height 2021-01-24 167.64 cm [facility] 15:45:00 BMI Calculated 2021-01-24 [facility] 15:45:00 Weight 2021-01-24 [facility] 15:45:00 Systolic (mm Hg) 2021-01-24 [facility] 15:45:00 Diastolic (mm Hg) 2021-01-24 [facility] ermann 15:45:00 Heart Rate 2021-01-24 [facility] 15:45:00 Respitory Rate 2021-01-24 [facility] shakira 15:45:00 Temperature Oral 2021-01-24 97.8 F [facility] Joel rmann (F) 15:45:00 Body mass index 2020-10-24 26.67 kg/m2 [facility] (BMI) [Ratio] 10:02:00 Heart Rate 2020-10-24 78 /min [facility] 10:02:00 Respiratory rate 2020-10-24 18 /min [facility] 10:02:00 O2 SAT 2020-10-24 97 % [facility] 10:02:00 Systolic blood 2020-10-24 114 mm[Hg] [facility] pressure 10:02:00 Diastolic blood 2020-10-24 64 mm[Hg] [facility] pressure 10:02:00 Body height 2020-10-24 65 [in_us] [facility] 10:02:00 Weight 2020-10-24 160.25 [lb_av] [facility] 10:02:00 Systolic (mm Hg) 2020-10-23 [facility] 20:48:00 Diastolic (mm Hg) 2020-10-23 [facility] 20:48:00 Heart Rate 2020-10-23 [facility] 20:48:00 Respitory Rate 2020-10-23 [facility] 20:48:00 Height 2020-10-23 165.1 cm [facility] 18:21:00 BMI Calculated 2020-10-23 [facility] 18:21:00 Weight 2020-10-23 [facility] 18:21:00 Systolic (mm Hg) 2020-10-23 [facility] 18:21:00 Diastolic (mm Hg) 2020-10-23 [facility] Eric ermann 18:21:00 Heart Rate 2020-10-23 Vishal Toman n 18:21:00 Respitory Rate 2020-10-23 [facility] 18:21:00 Temperature Oral 2020-10-23 98 F [facility] (F) 18:21:00 Body height 2020-07-11 65 [in_us] [facility] 10:20:00 Systolic blood 2020-04-25 107 mm[Hg] Location: LUE; [facility] pressure 09:20:00 Position: Sitting Diastolic blood 2020-04-25 65 mm[Hg] [facility] LUE; [facility] pressure 09:20:00 Position: Sitting Body height 2020-04-25 65 [in_us] [facility] 09:20:00 Weight 2020-04-25 155.25 [lb_av] [facility] 09:20:00 Body mass index 2020-04-25 25.83 kg/m2 [facility] (BMI) [Ratio] 09:20:00 Body temperature 2020-04-25 98.14 [degF] Method: Oral [facility] 09:20:00 Heart Rate 2020-04-25 83 /min Quality: Normal [facility] 09:20:00 Respiratory rate 2020-04-25 18 /min Quality: Normal [facility] 09:20:00 O2 SAT 2020-04-25 98 % [facility] 09:20:00 Systolic blood 2020-01-11 104 mm[Hg] [facility]: LUE; [facility] pressure 09:50:00 Position: Sitting Diastolic blood 2020-01-11 54 mm[Hg] Location: LUE; [facility] pressure 09:50:00 Position: Sitting Body height 2020-01-11 65.83 [in_us] [facility] 09:50:00 Weight 2020-01-11 159.25 [lb_av] [facility] 09:50:00 Body mass index 2020-01-11 25.84 kg/m2 [facility] (BMI) [Ratio] 09:50:00 Body temperature 2020-01-11 98.3 [degF] Method: Oral [facility] 09:50:00 Heart Rate 2020-01-11 64 /min Location: L [facility] 09:50:00 Brachial Artery; Quality: Normal Respiratory rate 2020-01-11 18 /min Quality: Normal [facility] 09:50:00 O2 SAT 2020-01-11 100 % Source: RA [facility] 09:50:00 BP Systolic 2019-08-24 128 mm[Hg] Location: LUE; [facility] 11:05:00 Position: Sitting BP Diastolic 2019-08-24 77 mm[Hg] Location: LUE; [facility] 11:05:00 Position: Sitting Height 2019-08-24 65.83 [in_us] [facility] 11:05:00 Weight 2019-08-24 159.25 [lb_av] [facility] 11:05:00 Body Mass Index 2019-08-24 25.84 kg/m2 [facility] Calculated 11:05:00 Temperature 2019-08-24 98 [degF] Method: Oral [facility] 11:05:00 Heart Rate 2019-08-24 71 /min Location: R [facility] 11:05:00 Brachial Artery; Quality: Normal Respiration Rate 2019-08-24 18 /min Quality: Normal [facility] 11:05:00 O2 SAT 2019-08-24 98 % Source: RA [facility] 11:05:00 Temperature Oral 2019-07-31 99.6 F [facility] (F) 04:36:00 Heart Rate 2019-07-31 [facility] 04:36:00 Respitory Rate 2019-07-31 [facility] 04:36:00 Systolic (mm Hg) 2019-07-31 [facility] 04:36:00 Diastolic (mm Hg) 2019-07-31 [facility] ermann 04:36:00 Systolic (mm Hg) 2019-07-31 [facility] 03:01:00 Diastolic (mm Hg) 2019-07-31 [facility] 03:01:00 Heart Rate 2019-07-31 Vishal Domínguez n 03:01:00 Respitory Rate 2019-07-31 Vishal Tom shakira 03:01:00 Temperature Oral 2019-07-31 100.2 F V[facility] Maldonado rmann (F) 03:01:00 Weight 2019-07-31 Vishal Domínguez n 03:01:00 BP Systolic 2019-06-15 106 mm[Hg] Location: LUE; [facility] 09:43:00 Position: Sitting BP Diastolic 2019-06-15 63 mm[Hg] Location: LUE; [facility] 09:43:00 Position: Sitting Height 2019-06-15 65.83 [in_us] [facility] 09:43:00 Weight 2019-06-15 148 [lb_av] [facility] 09:43:00 Body Mass Index 2019-06-15 24.01 kg/m2 [facility] Calculated 09:43:00 Temperature 2019-06-15 98 [degF] Method: Oral [facility] 09:43:00 Heart Rate 2019-06-15 87 /min Quality: Normal [facility] 09:43:00 Respiration Rate 2019-06-15 18 /min Quality: Normal [facility] 09:43:00 O2 SAT 2019-06-15 97 % Source: [facility] 09:43:00 Procedures Procedure Date / Time Performing Clinician Source Performed [place] RESUPERF WND FACE 2.6-5 2022-05-06 08:55:00 Shamir [facility] CM Pito CT CERVICAL SPINE WO 2022-05-06 07:53:44 LawrenceoaJeff [facility] CONTRAST Pito CT HEAD WO CONTRAST 2022-05-06 07:53:32 Jeff Corbett [facility] Pito CT MAXILLOFACIAL WO 2022-05-06 07:53:22 [facility]ifer [facility] CONTRAST Pito COMPREHENSIVE METABOLIC 2022-04-06 20:15:00 [facility]o [facility] PANEL LACTATE DEHYDROGENASE 2022-04-06 20:15:00 [facility]o [facility] CBC AND DIFFERENTIAL 2022-04-06 20:15:00 [facility]o [facility] RETICULOCYTES 2022-04-06 20:15:00 [facility] WITH REFLEX 2022-04-06 20:05:00 [facility] MICROSCOPIC HC COMPLETE BLD COUNT 2021-10-31 11:18:00 DarionZaire [facility] W/AUTO DIFF Manuel HC COMPLETE BLD COUNT 2021-10-30 11:47:00 [facility] W/AUTO DIFF BASIC METABOLIC PANEL 2021-10-30 11:47:00 [facility] ESTIMATED GFR 2021-10-30 11:47:00 [facility] Ho spital RETICULOCYTE COUNT 2021-10-30 11:41:00 [facility] HEMOGLOBIN & HEMATOCRIT 2021-10-27 09:31:00 [place], [facility] RETICULOCYTE COUNT 2021-10-27 09:31:00 [place], [facility] PROCALCITONIN 2021-10-26 21:55:00 [facility] Ho spital Mary BLOOD CULTURE, AEROBIC & 2021-10-26 20:55:00 Noam [facility] ANAEROBIC Mary COVID-19 QUALITATIVE 2021-10-26 20:54:00 [facility] RT-PCR BLOOD CULTURE, AEROBIC & 2021-10-26 20:54:00 Noam [facility] ANAEROBIC Mary URINE CULTURE 2021-10-26 18:21:00 [facility] URINALYSIS SCREEN AND 2021-10-26 18:21:00 [facility] MICROSCOPY, WITH REFLEX TO CULTURE XR CHEST 2 VW 2021-10-26 18:13:00 [facility] COMPREHENSIVE METABOLIC 2021-10-26 17:08:00 [facility] PANEL CBC WITH PLATELET AND 2021-10-26 17:08:00 [facility] DIFFERENTIAL RETICULOCYTE COUNT 2021-10-26 17:08:00 [facility] LDH 2021-10-26 17:08:00 [facility] ESTIMATED GFR 2021-10-26 17:08:00 [facility] MANUAL DIFFERENTIAL 2021-10-26 17:08:00 [place] BLOOD SMEAR CONSULT 2021-10-26 17:08:00 [place] BASIC METABOLIC PANEL 2021-09-09 12:11:00 [facility] LDH 2021-09-09 12:11:00 Erendira Kitchen [facility] spital ESTIMATED GFR 2021-09-09 12:11:00 [facility] MRI UPPER EXTREMITY JOINT 2021-09-09 05:19:21 [facility] W WO CONTRAST LEFT CT ABDOMEN PELVIS W 2021-09-09 04:07:23 [facility] CONTRAST BASIC METABOLIC PANEL 2021-09-08 12:07:00 [facility] CBC WITH PLATELET AND 2021-09-08 12:07:00 [facility] DIFFERENTIAL ESTIMATED GFR 2021-09-08 12:07:00 [facility] LDH 2021-09-08 12:07:00 [facility] MANUAL DIFFERENTIAL 2021-09-08 12:07:00 [facility] TRANSFUSE RED BLOOD CELLS 2021-09-08 04:35:00 [facility] TYPE AND SCREEN 2021-09-07 22:25:00 [facility] PREPARE RBC 2021-09-07 22:25:00 [facility] BLOOD CULTURE, AEROBIC & 2021-09-07 18:31:00 [facility] ANAEROBIC PROCALCITONIN 2021-09-07 18:31:00 [facility] BLOOD CULTURE, AEROBIC & 2021-09-07 18:30:00 [facility] ANAEROBIC BASIC METABOLIC PANEL 2021-09-07 11:55:00 [facility] CBC WITH PLATELET AND 2021-09-07 11:55:00 [facility] DIFFERENTIAL LDH 2021-09-07 11:55:00 [facility] 2021-09-07 11:55:00 [facility] ESTIMATED GFR 2021-09-07 11:55:00 [facility] spital MANUAL DIFFERENTIAL 2021-09-07 11:55:00 [facility] HEPATIC FUNCTION PANEL 2021-09-07 11:46:00 [facility] HAPTO[facility]IN 2021-09-07 11:46:00 Mando [facility] VANCOMYCIN LEVEL, TROUGH 2021-09-06 21:55:00 [facility] XR SHOULDER 2+ VW LEFT 2021-09-06 19:23:58 [facility] CHLAMYDIA TRACHOMATIS, TMA 2021-09-06 14:40:00 [facility] CBC WITH PLATELET AND 2021-09-06 14:09:00 [facility] DI[facility] [place] MANUAL DIFFERENTIAL 2021-09-06 14:09:00 [facility] BASIC METABOLIC PANEL 2021-09-06 11:35:00 [facility] ESTIMATED GFR 2021-09-06 11:35:00 [facility] GONORRHOEAE CULTURE 2021-09-06 01:12:00 [facility] CBC WITH PLATELET AND 2021-09-05 21:03:00 [facility] DIFFERENTIAL VANCOMYCIN LEVEL, TROUGH 2021-09-05 21:03:00 [facility] MANUAL DIFFERENTIAL 2021-09-05 21:03:00 [facility] CBC WITH PLATELET AND 2021-09-05 12:18:00 [facility] DIFFERENTIAL COMPREHENSIVE METABOLIC 2021-09-05 12:18:00 [facility] PANEL ESTIMATED GFR 2021-09-05 12:18:00 [facility] spital MANUAL DIFFERENTIAL 2021-09-05 12:18:00 [facility] GROUP A STREP, RAPID 2021-09-04 22:18:00 [facility] ANTIGEN MRSA PCR 2021-09-04 22:18:00 [facility] STREP SCREEN CULTURE 2021-09-04 22:18:00 [facility] RESPIRATORY PATHOGEN PANEL 2021-09-04 15:55:00 [facility] WITH COVID-19 RT-PCR PROCALCITONIN 2021-09-04 15:55:00 [facility] COMPREHENSIVE METABOLIC 2021-09-03 18:53:00 [facility] PANEL ESTIMATED GFR 2021-09-03 18:53:00 [facility] US DUPLEX VENOUS LOWER 2021-09-03 17:30:00 [facility] EXTREMITY BILATERAL CT ANGIOGRAM PE CHEST 2021-09-02 17:51:00 [facility] CBC WITH PLATELET AND 2021-09-02 16:06:00 [facility] DIFFERENTIAL COMPREHENSIVE METABOLIC 2021-09-02 16:06:00 [facility] PANEL ESTIMATED GFR 2021-09-02 16:06:00 [facility] MANUAL DIFFERENTIAL 2021-09-02 16:06:00 [facility] BLOOD SMEAR CONSULT 2021-09-02 16:06:00 [facility] COVID-19 ANTI-SPIKE IGG 2021-09-02 11:55:00 [facility] ANTIBODY TITER All COVID-19 SEROLOGY PATIENT 2021-09-02 11:55:00 [facility], [facility] SURVEILLANCE All XR CHEST 1 VW PORTABLE 2021-09-02 05:53:20 [facility] URINE CULTURE 2021-09-02 04:06:00 [facility] URINALYSIS SCREEN AND 2021-09-02 04:06:00 [facility] MICROSCOPY, WITH REFLEX TO CULTURE URINALYSIS SCREEN AND 2021-09-02 04:06:00 [facility] MICROSCOPY, WITH REFLEX TO CULTURE BLOOD CULTURE, AEROBIC & 2021-09-01 23:50:00 [facility] ANAEROBIC TROPONIN T 2021-08-31 23:43:00 [facility] TROPONIN T 2021-08-31 20:27:00 [facility] COVID-19 QUALITATIVE 2021-08-31 17:07:00 [facility] RT-PCR XR CHEST 2 VW 2021-08-31 14:51:00 [facility] HC COMPLETE BLD COUNT 2021-08-31 14:32:00 [facility] W/AUTO DIFF COMPREHENSIVE METABOLIC 2021-08-31 14:32:00 [facility] PANEL TROPONIN T 2021-08-31 14:32:00 [facility] CREATINE KINASE, TOTAL 2021-08-31 14:32:00 [facility] LDH 2021-08-31 14:32:00 [facility] RETICULOCYTE COUNT 2021-08-31 14:32:00 [facility] ESTIMATED GFR 2021-08-31 14:32:00 [facility] [place] CRITICAL CARE, E/M 2021-08-31 14:22:04 [facility] 30-74 MINUTES ECG ED PRELIMINARY 2021-08-31 14:22:04 [facility] INTERPRETATION ECG 12-LEAD 2021-08-31 14:14:08 Kwabena Mariano [facility] POC URINALYSIS DIPSTICK 2021-05-21 22:36:00 Barbara Harding [facility] CT ABDOMEN PELVIS W 2021-05-09 21:58:52 [facility] CONTRAST XR CHEST 2 VW 2021-05-09 20:51:54 [facility] URINE CULTURE 2021-05-09 20:47:00 [facility] HC COMPLETE BLD COUNT 2021-05-09 20:47:00 [facility] W/AUTO DIFF COMPREHENSIVE METABOLIC 2021-05-09 20:47:00 [facility] PANEL RETICULOCYTE COUNT 2021-05-09 20:47:00 [facility] URINALYSIS SCREEN AND 2021-05-09 20:47:00 [facility] MICROSCOPY, WITH REFLEX TO CULTURE TROPONIN 2021-05-09 20:47:00 [facility] ESTIMATED GFR 2021-05-09 20:47:00 [facility] ECG 12-LEAD 2021-05-09 20:35:32 [facility] ECG ED PRELIMINARY 2021-05-09 20:16:52 [facility] INTERPRETATION URINALYSIS, COMPLETE, WITH 2021-02-24 20:14:00 Barbara Harding [facility] REFLEX TO CULTURE MICROSCOPIC EXAMINATION 2021-02-24 20:14:00 Barbara Harding [facility] XR HIP 2-3 VIEWS LEFT 2021-02-24 18:18:05 Barbara Harding [facility] XR LUMBAR SPINE COMPLETE 2021-02-24 18:13:50 Barbara Harding [facility] 4+ VW POC URINALYSIS DIPSTICK 2021-02-24 17:17:00 Barbara Harding [facility] [QL] CBC (INCLUDES 2020-10-24 00:00:00 [facility] DIFF/PLT) [QL] CMP W/EGFR 2020-10-24 00:00:00 [facility] [QL] RETICULOCYTE COUNT 2020-10-24 00:00:00 [facility] [QL] FERRITIN 2020-10-24 00:00:00 [facility] [L] Prot+CreatU (Random) 2020-10-24 00:00:00 [facility] [QL] LD 2020-10-24 00:00:00 [facility] [L] Hemoglobinopathy 2020-10-24 00:00:00 [facility] [place] [QL] VITAMIN D, 2020-10-24 00:00:00 [facility] 25-HYDROXY, LC/MS/MS HC COMPLETE BLD COUNT 2020-09-14 11:25:00 [facility] W/AUTO DIFF COMPREHENSIVE METABOLIC 2020-09-14 11:25:00 [facility] PANEL LDH 2020-09-14 11:25:00 Erendira Kitchen spital ESTIMATED GFR 2020-09-14 11:25:00 [facility] SMEAR REVIEW 2020-09-14 11:25:00 [facility] BLOOD SMEAR CONSULT 2020-09-14 11:25:00 [facility] HC COMPLETE BLD COUNT 2020-09-13 10:31:00 [facility] W/AUTO DIFF COMPREHENSIVE METABOLIC 2020-09-13 10:31:00 [facility] PANEL LDH 2020-09-13 10:31:00 Erendira Kitchen spital ESTIMATED GFR 2020-09-13 10:31:00 [facility] SMEAR REVIEW 2020-09-13 10:31:00 [facility] TRANSFUSE RED BLOOD CELLS 2020-09-13 04:50:00 [facility] D-DIMER 2020-09-12 19:59:00 [facility] CRP HIGH SENSITIVITY 2020-09-12 19:59:00 [facility] LDH 2020-09-12 19:59:00 [facility] PREPARE RBC 2020-09-12 19:59:00 [facility] HEMOGLOBIN ELECTROPHORESIS 2020-09-12 19:59:[address] [facility] WITH HGB HCT AND RBC HEMOGLOBIN F, QUANTITATIVE 2020-09-12 19:59:[address] [facility] HEMOGLOBIN A2 2020-09-12 19:59:00 [facility] spital HC COMPLETE BLD COUNT 2020-09-12 11:06:00 [facility] W/AUTO DIFF COMPREHENSIVE METABOLIC 2020-09-12 11:06:00 [facility] PANEL LIPID PANEL 2020-09-12 11:06:00 [facility] MAGNESIUM LEVEL 2020-09-12 11:06:00 [facility] PHOSPHORUS LEVEL 2020-09-12 11:06:00 [facility] ESTIMATED GFR 2020-09-12 11:06:00 [facility] B NATRIURETIC PEP, I-STAT 2020-09-12 11:06:00 [facility] SMEAR REVIEW 2020-09-12 11:06:00 [facility] BLOOD SMEAR CONSULT 2020-09-12 11:06:00 [facility] TROPONIN, I-STAT 2020-09-12 07:40:00 [facility] URINE DRUGS OF ABUSE 2020-09-12 03:40:00 [facility] SCREEN ECG 12-LEAD 2020-09-12 01:20:03 [facility] LACTIC ACID LEVEL, SEPSIS 2020-09-12 01:19:00 [facility] - NOW AND REPEAT 2X EVERY 3 HOURS LACTIC ACID LEVEL, SEPSIS 2020-09-11 22:51:00 [facility] - NOW AND REPEAT 2X EVERY 3 HOURS TROPONIN, I-STAT 2020-09-11 22:51:00 Leatha Aguilera [facility] URINE CULTURE 2020-09-11 21:43:00 [facility] URINALYSIS SCREEN AND 2020-09-11 21:43:00 [facility] MICROSCOPY, WITH REFLEX TO CULTURE LDH 2020-09-11 20:15:00 [facility] RETICULOCYTE COUNT 2020-09-11 20:15:00 [facility] RESPIRATORY PATHOGEN PANEL 2020-09-11 20:01:00 [facility] WITH COVID-19 RT-PCR BLOOD CULTURE, AEROBIC & 2020-09-11 20:00:00 [facility] ANAEROBIC XR CHEST 1 VW PORTABLE 2020-09-11 19:40:00 [facility] BLOOD CULTURE, AEROBIC & 2020-09-11 19:39:00 [facility] ANAEROBIC LACTIC ACID LEVEL, SEPSIS 2020-09-11 19:38:00 [facility] - NOW AND REPEAT 2X EVERY 3 HOURS HC COMPLETE BLD COUNT 2020-09-11 19:38:00 [facility] W/AUTO DIFF COMPREHENSIVE METABOLIC 2020-09-11 19:38:00 [facility] PANEL PARTIAL THROMBOPLASTIN 2020-09-11 19:38:00 [facility] TIME (PTT) PROTHROMBIN TIME WITH INR 2020-09-11 19:38:00 [facility] ESTIMATED GFR 2020-09-11 19:38:00 [facility] B NATRIURETIC PEP, I-STAT 2020-09-11 19:38:00 [facility] TROPONIN, I-STAT 2020-09-11 19:38:00 [facility] SMEAR REVIEW 2020-09-11 19:38:00 [facility] ECG 12-LEAD 2020-09-11 19:15:36 [facility] ECG ED PRELIMINARY 2020-09-11 19:05:40 [facility] INTERPRETATION XR CHEST 2 VW 2020-09-01 21:30:23 Barbara Harding [facility] ospital TTE COMPLETE, WO CONTRAST, 2020-09-01 21:15:00 Barbara Harding [facility] W DOPPLER ([id number]) [QL] CBC (INCLUDES 2020-04-25 00:00:00 [facility] DIFF/PLT) [L] Hgb Frac. Profile 2020-04-25 00:00:00 [facility] [QL] CMP W/EGFR 2020-04-25 00:00:00 [facility] [QL] FERRITIN 2020-04-25 00:00:00 [facility] [L] Prot+CreatU (Random) 2020-04-25 00:00:00 [facility] [QL] VITAMIN D, 2020-04-25 00:00:00 [facility] 25-HYDROXY, LC/MS/MS [QL] CBC (INCLUDES 2020-01-11 00:00:00 [facility] DIFF/PLT) [QL] CMP W/EGFR 2020-01-11 00:00:00 [facility] [QL] LD 2020-01-11 00:00:00 [facility] [QL] RETICULOCYTE COUNT 2020-01-11 00:00:00 [facility] [QL] FERRITIN 2020-01-11 00:00:00 [facility] [QL] BILIRUBIN, DIRECT 2020-01-11 00:00:00 [facility] [QL] MICROALBUMIN, RANDOM 2020-01-11 00:00:00 [facility] URINE (W/CREATININE) [L] Hgb Frac. Profile 2020-01-11 00:00:00 [facility] [QL] VITAMIN D, 2020-01-11 00:00:00 [facility] 25-HYDROXY, LC/MS/MS [N] 2D Echo complete, with 2019-06-15 00:00:00 [facility] Doppler 88524 [QLH] CBC (INCLUDES 2019-06-15 00:00:00 [facility] DIFF/PLT) [QLH] LD 2019-06-15 00:00:00 [facility] [QLH] RETICULOCYTE COUNT 2019-06-15 00:00:00 [facility] [QLH] CMP W/EGFR 2019-06-15 00:00:00 [facility] [QLH] VITAMIN D, 2019-06-15 00:00:00 [facility] 25-HYDROXY, LC/MS/MS [L] Drug Profile, Ur, 9 2019-06-15 00:00:00 [facility] [L] Hgb Frac. Profile 2019-06-15 00:00:00 [facility] [QLH] BILIRUBIN, DIRECT 2019-06-15 00:00:00 [facility] [QLH] FERRITIN 2019-06-15 00:00:00 [facility] [QLH] MICROALBUMIN, RANDOM 2019-06-15 00:00:00 [facility] URINE (W/CREATININE) History of Cholecystectomy [facility] History of Hernia repair [facility] History of Shoulder [facility] arthroscopy Plan of Care Planned Activity Planned Date Details Comments Source Future Scheduled 2022-07-18 COVID-19 VACCINE (#1) [facility] Test 02:09:20 [code = COVID-19 VACCINE (#1)] Future Scheduled 2022-07-18 Hepatitis C screening [facility] Test 02:09:20 (procedure) [code = 195858012] Future Scheduled 2022-07-18 INFLUENZA VACCINE Method [facility] Test 02:09:20 [code = INFLUENZA VACCINE] Future Scheduled 2022-07-18 Pneumococcal Vaccine: [facility] Test 02:09:20 Pediatrics (0 to 5 Years) and At-Risk Patients (6 to 64 Years) (4 - PPSV23 if available, else PCV20) [code = Pneumococcal Vaccine: Pediatrics (0 to 5 Years) and At-Risk Patients (6 to 64 Years) (4 - PPSV23 if available, else PCV20)] Future Scheduled 2022-04-09 HEPATITIS B VACCINES Met [facility] Test 14:06:06 (1 of 3 - 3-dose series) [code = HEPATITIS B VACCINES (1 of 3 - 3-dose series)] Future Scheduled 2022-04-09 COVID-19 VACCINE (#1) [facility] Test 14:06:06 [code = COVID-19 VACCINE (#1)] Future Scheduled 2022-04-09 Hepatitis C screening [facility] Test 14:06:06 (procedure) [code = 395711453] Future Scheduled 2022-04-09 INFLUENZA VACCINE Method [facility] Test 14:06:06 [code = INFLUENZA VACCINE] Future Scheduled 2022-04-09 Pneumococcal Vaccine: [facility] Test 14:06:06 Pediatrics (0 to 5 Years) and At-Risk Patients (6 to 64 Years) (4 - PPSV23 or PCV20) [code = Pneumococcal Vaccine: Pediatrics (0 to 5 Years) and At-Risk Patients (6 to 64 Years) (4 - PPSV23 or PCV20)] Future Scheduled 2021-09-01 COVID-19 VACCINE (1) [facility] Test 22:50:03 [code = COVID-19 VACCINE (1)] Future Scheduled 2021-09-01 Hepatitis C screening [facility] Test 22:50:03 (procedure) [code = 114796698] Future Scheduled 2021-09-01 INFLUENZA VACCINE Method [facility] Test 22:50:03 [code = INFLUENZA VACCINE] Diagnostic Test 2019-07-19 [N] 2D Echo complete, [facility] Pending 00:00:00 with Doppler 00984 [code = [N] 2D Echo complete, with Doppler 78757] Diagnostic Test 2019-06-15 [N] 2D Echo complete, [facility] Pending 00:00:00 with Doppler 83163 [code = [N] 2D Echo complete, with Doppler 38155] Diagnostic Test 2019-06-15 [N] 2D Echo complete, [facility] Pending 00:00:00 with Doppler 67844 [code = [N] 2D Echo complete, with Doppler 34418] Diagnostic Test 2019-06-15 [N] 2D Echo complete, [facility] Pending 00:00:00 with Doppler 73406 [code = [N] 2D Echo complete, with Doppler 23129] Encounters Start End Encounter Admission Attending Care Care Encounter Source Date/Time Date/Time Type Type Clinicians Facility Department ID 2022-07-16 Outpatient [facility] [id number] [place] 09:17:38 [id number] [facility] 2021-10-19 Outpatient ONUEGBU, [facility] [id number] [place] 10:22:30 [facility] 2021-09-24 Outpatient MEHDI, [facility] [id number] [place] 14:53:10 MAKI [facility] 2021-08-14 Outpatient RYAN, [facility] [id number] [place] 10:44:37 [facility] 2021-08-14 Outpatient ONUEGBU, [facility] [id number] [place] 10:42:47 [facility] 2021-08-14 Outpatient RYAN, [facility] [id number] [place] 09:59:19 [facility] 2021-02-17 Outpatient RYAN, [facility] [id number] [place] 13:08:57 [facility] 2021-02-05 Outpatient RYAN, [facility] [id number] [place] 10:03:51 [facility] 2021-01-29 Outpatient [facility] [id number] [place] 11:10:23 [facility] 2021-01-09 Outpatient ZAHRAA, [facility] [id number] [place] 11:06:25 [facility] 2021-01-09 Outpatient RYAN, RIN [facility] [id number] [place] 10:07:14 [facility] 2020-12-24 Outpatient CHIADIKA, [facility] [id number] [place] 11:41:40 [facility] 2020-12-24 Outpatient [facility] [id number] [place] 10:25:05 [facility] 2020-12-06 Outpatient ZAHRAA, [facility] [id number] [place] 04:27:14 [facility] 2022-07-16 2022-07-16 Outpatient ONUEGBU, [facility] [id number] [place] 13:30:00 13:30:00 [facility] 2022-07-16 2022-07-16 Outpatient SILVIA LANGLEYO [facility] [id number] [place] 09:15:00 10:22:33 [facility] 2022-07-09 2022-07-09 Outpatient JSISSI, [facility] [id number] [place] 14:00:00 14:00:00 [facility] 2022-05-14 2022-05-14 Outpatient [facility] [id number] [place] 15:00:00 15:00:00 [facility] 2022-05-06 2022-05-06 Emergency [facility] [id number] Memoria 01:31:26 07:07:00 r Henderson 01 l [facility] 2022-05-06 2022-05-06 Emergency de Parkinson, 1.2.840.1 [id number] Methodi 00:11:00 [facility]:55[facility] [address] P[facility] 3.430.2.7 Hospit a .3.698506 l .8 2022-05-05 2022-05-06 Outpatient ROBI CanoPL MHPL [id number] 20:31:26 02:07:00 Reeva 01 Alfonso 2022-05-05 2022-05-06 Emergency E VALENTINE CANO MHBL [id number] MHBL 20:31:00 02:07:00 REEVA 2022-05-06 2022-05-06 Emergency DE PARKINSON, [facility] [id number] [place] 00:00:00 00:00:[address] [facility] [facility] 2022-05-06 2022-05-06 Travel 1.2.840.1 1.2.337.081 [id number] Methodi 00:00:00 00:00:[address] 3.430.2.7 0.2.7.3.698 Ho spita .3.020013 084.8 l .8 2022-04-19 2022-04-19 Emergency [facility] [id number] Memoria 11:55:40 18:05:00 r Stiven 00 l [facility] 2022-04-19 2022-04-19 Emergency [facility] [id number] Memoria 11:55:40 18:05:00 r Henderson 00 l [facility] 2022-04-19 2022-04-19 Outpatient Irina Parks MHPL MHPL [id number] 06:55:40 13:05:00 Gisele 00 2022-04-19 2022-04-19 Emergency E IRINA PARKS MHBL MHBL [id number] MHBL 06:55:00 13:05:00 2022-04-06 2022-04-06 Office LUIS Martinez 1.2.840.114 [id number] [place] 14:00:00 16:30:20 Visit Pao HAY 350.1.13.58 [facility] MEDICAL 9.2.7.2.[place] [id number] 5 2022-04-06 2022-04-06 Outpatient [facility] [id number] [place] 15:00:00 15:00:00 Health 2022-03-17 2022-03-17 Telephone Brooke Claudio [place] 1.2.840.1 14 [id number] [place] 00:00:00 00:00:00 Brooke Claudio 350.1.13.58 Health MEDICAL 9.2.7.2.686 CENTER [id number] 0 2022-03-15 2022-03-15 Telephone Gavin Pena [place] 1.2.840. 114 [id number] [place] 00:00:00 00:00:00 JeanGavin saucedo LAINAMAO 350.1.13.58 [facility] MEDICAL 9.2.7.2.[address] [place] [id number] 2022-03-12 2022-03-12 Office LUIS Davis [place] 1.2.555.768 [id number] [place] 13:30:00 14:33:34 Visit Tal HAY 350.1.13.58 [facility] MEDICAL 9.2.7.2.[place] [id number] 6 2022-01-11 2022-01-17 Inpatient [facility] [id number] Memoria 07:27:50 17:39:00 r Stiven López [facility] 2022-01-11 2022-01-17 Inpatient [facility] [id number] Memoria 07:27:50 17:39:00 lauren López [facility] 2022-01-11 2022-01-17 Inpatient E ROBI CANOBL MED [id number] MHBL 04:11:00 12:39:00 PRACHI 2022-01-11 2022-01-17 Outpatient Maikel MHPL MHPL [id number] 02:27:50 12:39:00 Prachi 2022-01-11 2022-01-17 Outpatient Maikel, MHPL MHPL [id number] 02:27:50 12:39:00 Prachi 05 2022-01-10 2022-01-10 Emergency nullFlavo [facility] [id number] Memoria 12:53:37 16:50:00 r Stiven [address] [place] [address] 2022-01-10 2022-01-10 [facility] [id number] Memoria 12:53:37 16:50:00 r Stiven [address] [place] [address] 2022-01-10 2022-01-[address] [id number] 07:53:37 11:50:00 Abdiwahab 04 Minaya 2022-01-10 2022-01-10 Emergency E VALENTINE PRICE BL 7504 BL 07:53:00 11:50:00 ABDIWAHAB 2021-11-10 2021-11-10 Patient Holli Valera LUIS ANDERSON 1.2.840.11 4 [id number] [place] 00:00:00 00:00:00 Outreach Holli Valera SATNAM 350.1.13.58 Health MEDICAL 9.2.7.2.[address] [place] [id number] 2021-11-03 2021-11-03 Telephone Joelvinay Mariannediallo ANDERSON 1.2.84 0.114 [id number] [place] 00:00:00 00:00:00 Aida Guerradiallo HAY 350.1.13.58 Health MEDICAL 9.2.7.2.[address] [place] [id number] 2021-11-02 2021-11-02 Patient Jt, 1.2.840.1 [id number] Methodi 00:00:00 00:00:00 Outreach Olufunmi 76916.1.[address] 3.430.2.7 Hospit a .3.716001 l .8 2021-11-02 2021-11-02 Patient Jt, 1.2.840.1 [id number] Methodi 00:00:00 00:00:00 Outreach Olufunmi 89695.1.[address] 3.430.2.7 Hospit a .3.307422 l .8 2021-10-26 2021-10-31 [facility] [place] 1.2.840.1 [id number] Methodi 11:26:00 17:01:00 Encounter Keny Menon 47073.1.1 889 [place] 3.430.2.7 Hospita .3.532435 l .8 2021-10-26 2021-10-31 [facility] 1.2.840.1 [id number] Methodi 11:26:00 17:01:00 Encounter Keny Menon 85928.1.1 889 [place] 3.430.2.7 Hospita .3.392471 l .8 2021-10-26 2021-10-26 Travel 1.2.840.1 1.2.657.971 [id number] [id number] Methodi 00:00:00 00:00:[address] 3.430.2.7 0.2.7.3.698 Ho spita .3.087261 084.8 l .8 2021-10-26 2021-10-26 Travel 1.2.840.1 1.2.841.466 8454 [id number] Methodi 00:00:00 00:00:[address] 3.430.2.7 0.2.7.3.698 Ho spita .3.671818 084.8 l .8 2021-10-26 2021-10-26 Telephone Alice Lincoln UTP 6410 1.2.8 40.114 [id number] [place] 00:00:00 00:00:[address] 350.1.13.5 8 Health 9.2.7.2.686 [id number] 2021-09-30 2021-09-30 Travel 1.2.840.1 1.2.583.321 1580 [id number] Methodi 00:00:00 00:00:[address] 3.430.2.7 0.2.7.3.698 Ho spita .3.695554 084.8 l .8 2021-09-30 2021-09-30 Travel 1.2.840.1 1.2.698.712 0788 096178 Methodi 00:00:00 00:00:[address] 3.430.2.7 0.2.7.3.698 Ho spita .3.443861 084.8 l .8 2021-09-24 2021-09-24 Office Mehdi, [facility] 6410 1.2.840.114 [id number] [place] 14:30:00 14:51:[address] 350.1.13.58 Health 9.2.7.2.686 [id number] 8 2021-08-31 2021-09-09 [facility] Juan Manuelreplaced by [facility] ansonKwabena 1.2.840.1 1045 81754 [id number] Methodi 08:10:00 15:31:00 Encounter Vanessa Multani 61256.1.[address] 3.430.2.7 Hospit a .3.820795 l .8 2021-08-31 2021-09-09 [facility] NERISSA, 1.2.840.1 [id number] [place] 00:00:00 00:00:00 Encounter VANESSA 57262.1.1 [address] .3.480889 .8 2021-08-31 2021-08-31 Travel 1.2.840.1 1.2.513.791 4075 [id number] Methodi 00:00:00 00:00:[address] 3.430.2.7 0.2.7.3.698 Ho spita .3.070580 084.8 l .8 2021-08-31 2021-08-31 Travel 1.2.840.1 1.2.132.719 0590 998306 Methodi 00:00:00 00:00:[address] 3.430.2.7 0.2.7.3.698 Ho spita .3.722419 084.8 l .8 2021-08-18 2021-08-18 Telephone Geovanni Langley LUIS [place] 1.2.840.114 [id number] [place] 00:00:00 00:00:00 PLAZA 350.1.13.58 He [facility] MEDICAL 9.2.7.2.686 CENTER [id number] 2021-08-17 2021-08-17 Telephone Pushpa Samano [facility] 1.2.840. 114 [id number] [place] 00:00:00 00:00:00 Thomas Samanolucy HAY 350.1.13.58 Health MEDICAL 9.2.7.2.686 CENTER [id number] 2021-08-14 2021-08-14 Office ZahraaLUIS 1.2.840.114 [id number] [place] 09:00:00 10:42:44 Visit Cisco SATNAM 350.1.13.58 [facility] MEDICAL 9.2.7.2.686 CENTER [id number] 2021-08-14 2021-08-14 Patient Shockency, Fabi LUIS [place] 1.2.84 0.114 [id number] [place] 00:00:00 00:00:00 Outreach Shockency, Fabi HAY 350.1.13.5 8 Health MEDICAL 9.2.7.2.686 CENTER [id number] 2021-07-21 2021-07-21 Telephone Bettye Leonardramon SMITH [place] 1.2.840.1 14 [id number] [place] 00:00:00 00:00:00 Yessica Wen 350.1.13.58 Health MEDICAL 9.2.7.2.686 CENTER [id number] 2021-07-09 2021-07-09 Telephone Manjula Cade [place] 1.2.840.1 14 [id number] [place] 00:00:00 00:00:00 Manjula Cade 350.1.13.58 Health MEDICAL 9.2.7.2.686 CENTER [id number] 2021-05-28 2021-05-28 Telephone Mehdi, 1.2.840.1 [id number] Methodi 00:00:00 00:00:00 Barbara Rondon 80911.1.[address] 3.430.2.7 Hospit a .3.391226 l .8 2021-05-21 2021-05-21 Office Mehdi 1.2.840.1 [id number] Methodi 16:00:00 16:41:43 Visit Barbara Rondon 15306.1.[address] 3.430.2.7 Hospit a .3.204921 l .8 2021-05-21 2021-05-21 Travel 1.2.840.1 1.2.489.064 5646 [id number] Methodi 00:00:00 00:00:[address] 3.430.2.7 0.2.7.3.698 Ho spita .3.890935 084.8 l .8 2021-05-09 2021-05-09 Emergency RohitGary 1.2.840.1 [id number] Methodi 15:12:00 19:13:[address] 3.430.2.7 Hospit a .3.639002 l .8 2021-05-09 2021-05-09 Travel 1.2.840.1 1.2.896.521 9779 [id number] Methodi 00:00:00 00:00:[address] 3.430.2.7 0.2.7.3.698 Ho spita .3.817759 084.8 l .8 2021-05-07 2021-05-07 Telephone Marianne Guerra 1.2.84 0.114 [id number] [place] 00:00:00 00:00:00 Marianne Guerra 350.1.13.58 [facility] MEDICAL 9.2.7.2.[address] [place] [id number] 0 2021-05-06 2021-05-06 Travel 1.2.840.1 1.2.369.046 6862 [id number] Methodi 00:00:00 00:00:[address] 3.430.2.7 0.2.7.3.698 Ho spita .3.298236 084.8 l .8 2021-03-19 2021-03-19 Refill LUIS Martinez [place] 1.2.840.114 [id number] 00:00:00 00:00:00 Pao PLAZA 350.1.13.58 MEDICAL 9.2.7.2.686 CENTER [id number] 5 2021-03-19 2021-03-19 Refmatthias JsLUIS bridges [place] 1.2.840.114 [id number] [place] 00:00:00 00:00:00 Pao PLAZA 350.1.13.58 He alth MEDICAL 9.2.7.2.686 CENTER [id number] 2021-03-18 2021-03-18 [facility] [id number] Memoria 04:02:56 10:53:00 r Stiven 03 [facility] 2021-03-18 2021-03-18 [facility] [id number] Memoria 04:02:56 10:53:00 lauren Saleem 03 [facility] 2021-03-17 2021-03-18 Outpatient Visrabiayamartin MHPL MHPL [id number] 23:02:56 05:53:00 , Fatemeh 03 2021-03-17 2021-03-18 Emergency E JI MHBL MHBL [id number] MHBL 23:02:00 05:53:00 , FATEMEH 2021-03-18 2021-03-18 Telephone KimLUIS guzman 1.2.840.114 [id number] 00:00:00 00:00:00 Lucila SATNAM 350.1.13.58 MEDICAL 9.2.7.2.686 CENTER [id number] 2021-03-18 2021-03-18 Telephone Lucila Alvarez 1.2.840.11 4 [id number] [place] 00:00:00 00:00:00 Lucila Alvarez 350.1.13.58 Health MEDICAL 9.2.7.2.686 [place] [id number] 0 2021-03-06 2021-03-06 Telephone LUIS Collier 1.2.840.114 [id number] 00:00:00 00:00:00 Elsa HAY 350.1.13.58 MEDICAL 9.2.7.2.686 [place] [id number] 0 2021-03-06 2021-03-06 Telephone Elsa Collier [place] 1.2.840.1 14 [id number] [place] 00:00:00 00:00:00 Elsa Collier 350.1.13.58 Health MEDICAL 9.2.7.2.686 [place] [id number] 0 2021-02-24 2021-02-24 Office Gianna Harding2.840.1 [id number] Methodi 11:49:26 12:13:24 Visit Barbara Rondon [address]34.1.[address] 3.430.2.7 Hospit a .3.835160 l .8 2021-02-24 2021-02-24 Outpatient MEHDI ACUNA [address] 00:00:00 00:00:00 BARBARA Sharma [facility] 2021-02-24 2021-02-24 Outpatient MEHDI ACUNA [address] 00:00:00 00:00:00 BARBARA Farrell [facility] 2021-02-23 2021-02-23 Travel 1.2.840.1 1.2.541.110 [id number] Methodi 00:00:00 00:00:[address] 3.430.2.7 0.2.7.3.698 Ho spita .3.859448 084.8 l .8 2021-02-19 2021-02-19 Telephone Adri Melendez 1.2.84 0.114 [id number] [place] 00:00:00 00:00:00 Adri Melendez 350.1.13.58 Health MEDICAL 9.2.7.2.686 [place] [id number] 6 2021-02-19 2021-02-19 Patient Rajat Ash 1.2.84 0.114 [id number] [place] 00:00:00 00:00:00 Outreach Rajat Ash 350.1.13.5 8 Health MEDICAL 9.2.7.2.686 [place] [id number] 6 2021-02-04 2021-02-04 Refill Adri Melendez [place] 1.2.840. 114 [id number] [place] 00:00:00 00:00:00 Adri Melendez 350.1.13.58 Health MEDICAL 9.2.7.2.686 [place] [id number] 6 2021-01-28 2021-01-28 Orders Adri Melendez [place] 1.2.840. 114 [id number] [place] 00:00:00 00:00:00 Only Adri Melendez 350.1.13.58 Health MEDICAL 9.2.7.2.686 [place] [id number] 6 2021-01-27 2021-01-27 Telephone Marianne Keller [place] 1.2 .840.114 [id number] [place] 00:00:00 00:00:00 [place] 350.1.13.5 8 Health MEDICAL 9.2.7.2.686 [place] [id number] 0 2021-01-24 2021-01-24 [facility] [id number] [place] 15:32:55 19:15:00 r Stiven Kwong [facility] 2021-01-24 2021-01-24 Emergency nullFlavo [facility] [id number] [place] 15:32:55 19:15:00 r Stiven Kwong [facility] 2021-01-24 2021-01-24 Outpatient LINDA Price [id number] 10:32:55 14:15:00 Cammie Zacariasim 2021-01-24 2021-01-24 Emergency E VALENTINE PRICE [facility] [address] [facility] 10:32:00 14:15:00 AVERYFERN 2021-01-22 2021-01-22 Patient DeclouRajat carreno 1.2.84 0.114 [id number] [place] 00:00:00 00:00:00 Outreach Rajat Ash 350.1.13.5 8 Health MEDICAL 9.2.7.2.686 [place] [id number] 6 2021-01-09 2021-01-09 Office Zahraa LUIS ANDERSON 1.2.840.114 [id number] [place] 09:29:58 11:05:07 Visit Cisco HAY 350.1.13.58 [facility] 9.2.7.2.686 [place] [id number] 6 2021-01-08 2021-01-08 Patient ShockencyFabi JUSTIN 1.2.84 0.114 [id number] [place] 00:00:00 00:00:00 Outreach ShockencyFabi 350.1.13.5 8 Health MEDICAL 9.2.7.2.686 [place] [id number] 6 2021-01-08 2021-01-08 Patient DeclouRajat carreno JUSTIN 1.2.84 0.114 [id number] [place] 00:00:00 00:00:00 Outreach Rajat Ash 350.1.13.5 8 Health MEDICAL 9.2.7.2.686 [place] [id number] 6 2021-01-06 2021-01-06 Telephone Ana Laura Yajaira LUIS ANDERSON 1.2.840 .114 [id number] [place] 00:00:00 00:00:00 Yajaira Du 350.1.13.58 Health MEDICAL 9.2.7.2.686 [place] [id number] 2021-01-01 2021-01-01 Travel 1.2.840.1 1.2.732.032 [id number] Method 00:00:00 00:00:[address] 3.430.2.7 0.2.7.3.698 Ho spita .3.257827 084.8 l .8 2020-12-31 2020-12-31 Telephone Mehdi 1.2.840.[id number] [facility] 00:00:00 00:00:00 Barbara [address]Fozia [address] 3.430.2.7 Hospit a .3.075318 l .8 2020-12-22 2020-12-22 Office LUIS Jones 1.2.840.114 [id number] [place] 15:54:20 17:11:33 Visit Karlo HAY 350.1.13.58 He alth MEDICAL 9.2.7.2.686 CENTER [id number] 1 2020-12-22 2020-12-22 Orders Al Lisacirilo [facility] 1.2.840. 114 [id number] [place] 00:00:00 00:00:00 Only Adri Melendez 350.1.13.58 Health MEDICAL 9.2.7.2.686 CENTER [id number] 6 2020-12-19 2020-12-19 Telephone LazarusEryn [facility] 1.2.840.11 4 [id number] [place] 00:00:00 00:00:00 Eryn Qiu 350.1.13.58 Health MEDICAL 9.2.7.2.686 CENTER [id number] 0 2020-12-19 2020-12-19 Refill Ana CristinaLUIS GUILFORD 1.2.840.114 [id number] [place] 00:00:00 00:00:00 Pao HAY 350.1.13.58 alth MEDICAL 9.2.7.2.686 CENTER [id number] 5 2020-12-19 2020-12-19 Patient Rajat Ash [facility] 1.2.84 0.114 [id number] [place] 00:00:00 00:00:00 Outreach MihirDanielafeliciaconner SATNAM 350.1.13.5 8 Health MEDICAL 9.2.7.2.686 CENTER [id number] 1 2020-12-17 2020-12-17 Telephone Latosha Brooks [facility] 1.2. 840.114 [id number] [place] 00:00:00 00:00:00 Todd Latoshadonna HAY 350.1.13.58 [facility] Emergency Department 9.2.7.2.686 [place] [id number] 2020-10-24 2020-10-24 LUIS [facility] [id number] [place] 10:00:00 10:00:00 t; [facility], Medicine - Physici Tonio BOWERS [facility] 2020-10-23 2020-10-23 [facility] [id number] [facility] 18:10:02 20:58:00 r Stiven 01 [facility] 2020-10-23 2020-10-23 [facility] [id number] Memoria 18:10:02 20:58:00 r Stiven 01 [facility] 2020-10-23 2020-10-[address] [id number] 2137 13:10:02 15:58:[address] [place] [address] 2020-10-23 2020-10-23 Emergency E ROBI VASQUEZBL MHBL 7501 MHBL 13:10:00 15:58:00 TIMOTHY 2020-09-22 2020-09-22 Telemedici Mehdi 1.2.840.1 [id number] Methodi 13:01:16 13:14:07 mahsa Rondon [address]34.1.[address] 3.430.2.7 Hospit a .3.587943 l .8 2020-09-18 2020-09-18 Travel 1.2.840.1 1.2.345.528 [id number] [id number] Methodi 00:00:00 00:00:[address] 3.430.2.7 0.2.7.3.698 Ho spita .3.601319 084.8 l .8 2020-09-11 2020-09-14 Emergency DarrynShlomo carlin 1.2.840.1 [id number] Methodi 13:09:00 15:20:00 Pérez Thompson [address]12.1.[address] 3.430.2.7 Hospit a .3.255254 l .8 2020-09-11 2020-09-11 [facility], 1.2.840.1 [id number] Methodi 00:00:00 00:00:00 Barbara Rondon [address]63.1.[address] 3.430.2.7 Hospit a .3.363821 l .8 2020-09-11 2020-09-11 Travel 1.2.840.1 1.2.302.510 [id number] [id number] Methodi 00:00:00 00:00:[address] 3.430.2.7 0.2.7.3.698 Ho spita .3.338351 084.8 l .8 2020-09-01 2020-09-01 [facility], 1.2.840.1 [id number] 46821 Methodi 15:14:13 23:59:00 Encounter Barbara Rondon 85355.1.[address] 3.430.2.7 Hospit a .3.726206 l .8 2020-09-01 2020-09-01 [facility], 1.2.840.1 [id number] Methodi 14:43:05 15:13:00 Encounter Barbara Rondon 25170.1.[address] 3.430.2.7 Hospit a .3.815584 l .8 2020-09-01 2020-09-01 Travel 1.2.840.1 1.2.015.878 [id number] [id number] Methodi 00:00:00 00:00:[address] 3.430.2.7 0.2.7.3.698 Ho spita .3.575055 084.8 l .8 2020-08-22 2020-08-22 Emergency [facility] 274 [id number] 614 [place] 00:00:00 00:00:00 FAHEEM [address] 2020-08-21 2020-08-21 [facility] [id number] [place] 00:00:00 00:00:00 BARBARA 299 Method i 2020-08-08 2020-08-08 Appointmen [facility] UTP [id number] [place] 10:40:00 10:40:00 t; [facility] Phy sici BINSAH, M.D. ans M.D. 2020-07-14 2020-07-21 Inpatient NERISSA, [facility] 025 [id number] [place] 00:00:00 00:00:00 VANESSA 101 Method i 2020-07-11 2020-07-11 Appointmen [facility] Internal [id number] [place] 08:20:00 08:20:00 t; [facility] Medicine - Physici BINSAH, M.D. [place] porter Hilario [facility] 2020-04-25 2020-04-25 Appointmen [facility] Comprehensi [id number] [place] 09:00:00 09:00:00 t; [facility] ve Sickle P hysici BINSAH, M.D. [facility] porter Elizalde 2020-04-08 2020-04-16 Inpatient JAY, [facility] 064 [id number] 93 [place] 00:00:00 00:00:00 PÉREZ 788 Method i 2020-04-04 2020-04-04 Appointmen LUIS ALMENDAREZ UTP [id number] [place] 11:00:00 11:00:00 t; CAIT ALMENDAREZ P hysici HARINDER, M.D. ans M.D. 2020-01-28 2020-01-28 Outpatient MEHDI ACUNA, [facility] [id number] [place] 00:00:00 00:00:00 BARBARA [address] 2020-01-11 2020-01-11 Appointmen SMILEY CHAVEZ [facility] Multispecia [id number] [place] 10:00:00 10:00:00 t; niurka CHAVEZ - The Phy brianna REIS [facility], ans [address] 2020-01-11 2020-01-11 Appointmen LUIS ALMENDAREZ Comprehensi [id number] [place] 09:40:00 09:40:00 t; CAIT [facility] ve Sickle Physici HARINDER, M.D. [facility] daniela wilson M.D. 2020-01-11 2020-01-11 Appointmen LUIS ALMENDAREZ Comprehensi [id number] [place] 09:40:00 09:40:00 t; CAIT AL[facility]ENDARE[facility] ve Sickle Physici HARINDER, M.D. [facility] daniela wilson M.D. 2019-12-07 2019-12-07 Appointmen LUIS ALMENDAREZ [facility] [id number] [place] 10:20:00 10:20:00 t; CAIT ALMENDAREZ P hysici HARINDER, M.D. ans M.D. 2019-10-19 2019-10-19 Appointmen LUIS ALMENDAREZ Comprehensi [id number] [place] 10:20:00 10:20:00 t; CAIT ALMENDAREZ ve Sickle Physici HARINDER, M.D. [facility] daniela wilson M.D. 2019-10-16 2019-10-16 Outpatient MEHDI ACUNA, [facility] [id number] [place] 00:00:00 00:00:00 BARBARA 873 Method i 2019-09-15 2019-09-20 Inpatient ALIREZAANDREACARLOS, [facility] [id number] [place] 00:00:00 00:00:00 VAENSSA 862 Method i 2019-08-24 2019-08-24 Appointmen TANESHALUIS YOUSSEF Comprehensi [id number] [place] 10:40:00 10:40:00 t; CAIT ALMENDAREZ ve Sickle Physici HARINDER, M.D. Cell [place] daniela wilson M.D. 2019-08-16 2019-08-16 Appointmen LUIS SOMMERS UTP [id number] [place] 13:00:00 13:00:00 t; FRANCISCO JAVIER SOMMERS Phy sici ECHOGLENN ans 2019-07-31 2019-07-31 [facility] [id number] [place] 02:02:58 06:33:00 r Stiven 00 l [facility] 2019-07-31 2019-07-31 Emergency nullFlavo [facility] [id number] [place] 02:02:58 06:33:00 r Stiven 00 l [facility] 2019-07-30 2019-07-31 Outpatient Fernando [facility] [id number] 2435 20:02:58 00:33:00 Leora Seo 00 2019-06-16 2019-06-19 Inpatient KITCHEN, [facility] [id number] 51 [place] 00:00:00 00:00:00 ERENDIRA [address] 2019-06-15 2019-06-15 Appointmen TANESHA LUIS Comprehi [id number] [place] 09:00:00 09:00:00 t; CAIT ALMENDAREZ ve Sickle Physici HARINDER, M.D. Cell [place] daniela wilson M.D. 2019-02-19 2019-02-19 [facility] 1.2.840.114 [id number] 12:46:23 13:57:23 Visit , Dale MADDEN 350.1.13.10 IALTY 4.2.7.2.686 CENTER [id number] [id number] Results Test Description Test Time Test Comments Results Result Comments Source CARDIAC ENZYMES 2022-04-19 16:10:00 Test Item Value Reference Range Interpretation Comme nts HS Troponin I 1 Hr (test code = HS Troponin I 1 Hr) 5 [facility] [id number] 16:10:00 Test Item Value Reference Range Interpretation Comments HS Troponin I 0 to 1 Hour Delta (test 0 1 code = HS Troponin I 0 to [address]) [facility] [id number] 16:10:00 Test Item Value Reference Range Interpretation Comments HS Troponin I 1 Hr (test code = HS 5 Troponin I [address] H[address]) [facility] [id number] 16:10:00 Test Item Value Reference Range Interpretation Comments HS Troponin I 0 to 1 Hour Delta (test 0 1 code = HS Troponin I 0 to 1 Hour Delta) [facility] [id number] 15:00:00 Test Item Value Reference Range Interpretation Comments HS Troponin I Baseline (test code = HS 5 Troponin I Baseline) [facility] [id number] 15:00:00 Test Item Value Reference Range Interpretation Comments HS Troponin I Baseline (test code = HS 5 Troponin I Baseline) [facility] CenterVwqnkmgKJUXSFWXON6955-02-24 12:52:00 Test Item Value Reference Range Interpretation Comments RBC (test code = RBC) 2.66 4.70-6.10 [facility] CenterKgardsoCFXTBHIXOE2363-25-25 12:52:00 Test Item Value Reference Range Interpretation Comments Hgb (test code = Hgb) 8.8 14.0-18.0 [facility]ballVrzgucvJEFKCSGDQX4786-50-19 12:52:00 Test Item Value Reference Range Interpretation Comments Hct (test code = Hct) 24.4 42.0-54.0 [facility] TomballLofouwyCVZHIUWMWO0415-44-50 12:52:00 Test Item Value Reference Range Interpretation Comments MCV (test code = MCV) 91.6 80.0-94.0 [facility] TomballDiiakziAKYRUZZRBI0695-18-85 12:52:00 Test Item Value Reference Range Interpretation Comments MCH (test code = MCH) 33.0 pg 27.0-31.0 [facility] TomballOrcctwlXMEOPDOBKB4380-68-23 12:52:00 Test Item Value Reference Range Interpretation Comments MCHC (test code = MCHC) 36.0 32.0-36.0 [facility] TomballYhcfidwBZODYHVMVS7606-35-04 12:52:00 Test Item Value Reference Range Interpretation Comments RDW (test code = RDW) 24.7 11.5-14.5 [facility] TomballCgsiuxrOBVNLEKWXY9305-38-61 12:52:00 Test Item Value Reference Range Interpretation Comments Platelet (test code = Platelet) 381 133-450 [facility] TomballFhwkffnMXYYYYFRBK4965-03-76 12:52:00 Test Item Value Reference Range Interpretation Comments MPV (test code = MPV) 6.5 7.4-10.4 [facility] TomballXnnetbnSNDOZNPKWZ1169-54-63 12:52:00 Test Item Value Reference Range Interpretation Comments WBC (test code = WBC) 7.9 3.7-10.4 [facility] TomballWckbwndNIICHSYCZL0508-03-27 12:52:00 Test Item Value Reference Range Interpretation Comments Retic Perf (test code = Yes (04/19/22 7:52 AM) Retic Perf) [facility] TomballLwjecitBPOSOLNUOH2701-63-38 12:52:00 Test Item Value Reference Range Interpretation Comments Retic Auto (test code = Retic Auto) 11.8 0.5-1.5 [place] 091392-09-19 12:52:00 Test Item Value Reference Range Interpretation Comments RBC Morph (test code = See Note (04/19/22 7:52 RBC Morph) AM) [facility] TomballInyulrdSTRVTMVLVV8492-27-02 12:52:00 Test Item Value Reference Range Interpretation Comments Plt Morph (test code = Normal (04/19/22 7:52 Plt Morph) AM) [place] 091392-09-19 12:52:00 Test Item Value Reference Range Interpretation Comments Segs (test code = Segs) 53.0 45.0-75.0 [facility] TomballCdhpxymTLIISRSETE7078-52-64 12:52:00 Test Item Value Reference Range Interpretation Comments Bands (test code = 4.0 See_Comment [Automat ed message] The Bands) system which ge nerated this result transmit aisha reference range : <=11.0. The reference r duy was not used to interpr et this result as erin l/abnormal. [facility] TomballMgiwmnfVUIPBWJZTB5514-87-38 12:52:00 Test Item Value Reference Range Interpretation Comments Lymphocytes (test code = Lymphocytes) 29.0 20.0-40.0 [facility] TomballMmwrjnrRMUXYFTDXD8511-63-23 12:52:00 Test Item Value Reference Range Interpretation Comments Monocytes (test code = Monocytes) 7.0 2.0-12.0 [facility] TomballTyrrthqPQOWCECONS5695-82-62 12:52:00 Test Item Value Reference Range Interpretation Comments Eosinophils (test code = 2.0 See_Comment [A utomated message] The Eosinophils) system which ge nerated this result tra nsmitted reference range : <=4.0. The reference r duy was not used to int erpret this result as normal/abnormal . [facility] TomballZsihuwwDLXCCIFCNE4779-81-50 12:52:00 Test Item Value Reference Range Interpretation Comments Basophils (test code = 1.0 See_Comment [Aut omated message] The Basophils) system which ge nerated this result tra nsmitted reference range : <=1.0. The reference r duy was not used to int erpret this result as normal/abnormal . [facility] TomballOovzviePTIYSGGSVR4533-95-85 12:52:00 Test Item Value Reference Range Interpretation Comments Neutrophils # (test code = Neutrophils 4.5 1.5-8.1 #) [facility] TomballUllmqmrJLJJYQFLCU6763-53-34 12:52:00 Test Item Value Reference Range Interpretation Comments Lymphocytes # (test code = Lymphocytes 2.3 1.0-5.5 #) [facility] TomballLpckfggBLZGLOSEBE0434-01-81 12:52:00 Test Item Value Reference Range Interpretation Comments Monocytes # (test code 0.6 See_Comment [Aut omated message] The = Monocytes #) system which generated this result tra nsmitted reference range : <=0.8. The reference r duy was not used to int erpret this result as normal/abnormal . [facility] TomballTgvfkkpXJOKLHQANI2009-58-81 12:52:00 Test Item Value Reference Range Interpretation Comments Eosinophils # (test code 0.2 See_Comment [A utomated message] The = Eosinophils #) system whic h generated this result tra nsmitted reference range : <=0.5. The reference r duy was not used to int erpret this result as normal/abnormal . [facility] TomballWjabrtzDTIODACIJH4264-80-07 12:52:00 Test Item Value Reference Range Interpretation Comments Basophils # (test code 0.1 See_Comment [Aut omated message] The = Basophils #) system which generated this result tra nsmitted reference range : <=0.2. The reference r duy was not used to int erpret this result as normal/abnormal . [facility] TomballLjilccqPZUGNPJBUJ4336-49-82 12:52:00 Test Item Value Reference Range Interpretation Comments Metamyelocytes (test code 3.0 See_Comment [ Automated message] = Metamyelocytes) The system which generated this result transmitted ref erence range: <=1.0. T he reference range was not used to int erpret this result as normal/abnormal . [facility] TomballQvuxgqcENHPEVIXPS6845-49-53 12:52:00 Test Item Value Reference Range Interpretation Comments Myelocytes (test code = Myelocytes) 1.0 [facility] TomballXohaykaDMRPDQOPEE3690-02-08 12:52:00 Test Item Value Reference Range Interpretation Comments NRBC (test code = NRBC) 3 [facility] TomballHpwkphrXFSVNOAFCH4945-76-77 12:52:00 Test Item Value Reference Range Interpretation Comments Anisocyte (test code = 2+ *ABN*(04/19/22 Anisocyte) 7:52 AM) [facility] TomballJnhgvwfOFJVMWHRWA9373-25-00 12:52:00 Test Item Value Reference Range Interpretation Comments Microcyte (test code = 1+ *ABN*(04/19/22 Microcyte) 7:52 AM) [facility] TomballTscqpssLSGEBKSPIX7341-97-64 12:52:00 Test Item Value Reference Range Interpretation Comments Hypochrom (test code = 1+ (04/19/22 7:52 AM) Hypochrom) [facility] TomballYggsosgAJZWSNENLE0472-41-10 12:52:00 Test Item Value Reference Range Interpretation Comments Polychrom (test code = Moderate *ABN*(04/19/22 Polychrom) 7:52 AM) [place] 091392-09-19 12:52:00 Test Item Value Reference Range Interpretation Comments Target Cell (test code Marked *ABN*(04/19/22 = Target Cell) 7:52 AM) [facility] TomballMxlvnpiOTGONXWKYI9575-48-84 12:52:00 Test Item Value Reference Range Interpretation Comments Tear Cell (test code Moderate *ABN*(04/19/22 = Tear Cell) 7:52 AM) [facility] TomballRnhczkhRTVKKKGNYF5664-97-28 12:52:00 Test Item Value Reference Range Interpretation Comments Schistocyte (test code = 1-3 per HPF Schistocyte) (04/19/22 7:52 AM) [place] 091392-09-19 12:52:00 Test Item Value Reference Range Interpretation Comments Elliptocyte (test code = Slight *ABN*(04/19/22 Elliptocyte) 7:52 AM) [facility] TomballXxzonrdGMQSZMKDYT8713-21-48 12:52:00 Test Item Value Reference Range Interpretation Comments Sickle Cell (test code Slight *ABN*(04/19/22 = Sickle Cell) 7:52 AM) [facility]2022-09-19 12:52:00 Test Item Value Reference Range Interpretation Comments Glucose Lvl (test code = Glucose Lvl) 98 70-99 [facility]2022-09-19 12:52:00 Test Item Value Reference Range Interpretation Comments BUN (test code = BUN) 8 - [place] 105882-09-19 12:52:00 Test Item Value Reference Range Interpretation Comments Creatinine Lvl (test code = Creatinine 0.55 0.50-1.40 Lvl) [facility]2022-09-19 12:52:00 Test Item Value Reference Range Interpretation Comments Sodium Lvl (test code = Sodium Lvl) 138 135-145 [facility]2022-09-19 12:52:00 Test Item Value Reference Range Interpretation Comments Potassium Lvl (test code = Potassium 3.9 3.5-5.1 Lvl) [place] 105882-09-19 12:52:00 Test Item Value Reference Range Interpretation Comments Chloride Lvl (test code = Chloride Lvl) 107 95-109 [place] 105882-09-19 12:52:00 Test Item Value Reference Range Interpretation Comments CO2 (test code = CO2) 26 24-32 [place] 105882-09-19 12:52:00 Test Item Value Reference Range Interpretation Comments Calcium Lvl (test code = Calcium Lvl) 8.8 8.5-10.5 [place] 105882-09-19 12:52:00 Test Item Value Reference Range Interpretation Comments Total Protein (test code = Total 8.2 6.4-8.4 Protein) [place] 105882-09-19 12:52:00 Test Item Value Reference Range Interpretation Comments Albumin Lvl (test code = Albumin Lvl) 4.6 3.5-5.0 [place] 105882-09-19 12:52:00 Test Item Value Reference Range Interpretation Comments ALT (test code = ALT) 23 See_Comment [Auto mated message] The system which ge nerated this result transmit aisha reference range : <=65. The reference range was not used to interpr et this result as erin l/abnormal. [facility]2022-09-19 12:52:00 Test Item Value Reference Range Interpretation Comments AST (test code = AST) 36 See_Comment [Auto mated message] The system which ge nerated this result transmit aisha reference range : <=37. The reference range was not used to interpr et this result as erin l/abnormal. [facility]2022-09-19 12:52:00 Test Item Value Reference Range Interpretation Comments Alk Phos (test code = Alk Phos) 104 39-136 [facility] OHNHT1951-04-40 12:52:00 Test Item Value Reference Range Interpretation Comments Bili Total (test code = Bili Total) 4.3 0.2-1.3 [place] 105882-09-19 12:52:00 Test Item Value Reference Range Interpretation Comments AGAP (test code = AGAP) 8.9 10.0-20.0 [place] 105882-09-19 12:52:00 Test Item Value Reference Range Interpretation Comments B/C Ratio (test code = B/C Ratio) 15 1 6-25 [facility] RREXZ2633-00-60 12:52:00 Test Item Value Reference Range Interpretation Comments Globulin (test code = Globulin) 3.6 2.7-4.2 [facility] LVZQM3814-02-12 12:52:00 Test Item Value Reference Range Interpretation Comments A/G Ratio (test code = A/G Ratio) 1.3 1 0.7-1.6 [facility] RBWYZ5562-93-44 12:52:00 Test Item Value Reference Range Interpretation Comments eGFR (test code = eGFR) 144 [facility] TomballOqkyjflZPGTQOFVYU8057-84-76 12:52:00 Test Item Value Reference Range Interpretation Comments RBC (test code = RBC) 2.66 4.70-6.10 [facility] TomballGyygkqzUPNWJIPWJT9431-60-41 12:52:00 Test Item Value Reference Range Interpretation Comments Hgb (test code = Hgb) 8.8 14.0-18.0 [facility] TomballJbhdaipXGTHVTYPFW3577-67-42 12:52:00 Test Item Value Reference Range Interpretation Comments Hct (test code = Hct) 24.4 42.0-54.0 [facility] TomballCsullyqNFHBMCLMRR6596-82-83 12:52:00 Test Item Value Reference Range Interpretation Comments MCV (test code = MCV) 91.6 80.0-94.0 [facility] TomballSptaqmgUTBKDKCBEX0127-95-12 12:52:00 Test Item Value Reference Range Interpretation Comments MCH (test code = MCH) 33.0 pg 27.0-31.0 [facility] TomballUtgsnhjWEGDOMMRRM9761-77-10 12:52:00 Test Item Value Reference Range Interpretation Comments MCHC (test code = MCHC) 36.0 32.0-36.0 [facility] TomballAiirbwlFGDWAYREOG1332-34-82 12:52:00 Test Item Value Reference Range Interpretation Comments RDW (test code = RDW) 24.7 11.5-14.5 [facility] TomballPmgtsluGWKULPFFCO2952-67-74 12:52:00 Test Item Value Reference Range Interpretation Comments Platelet (test code = Platelet) 381 133-450 [facility] TomballBgqkpjeGXBRXFNCCP4104-69-73 12:52:00 Test Item Value Reference Range Interpretation Comments MPV (test code = MPV) 6.5 7.4-10.4 [facility] TomballDilwaadKRIUSEEOPR8387-80-81 12:52:00 Test Item Value Reference Range Interpretation Comments WBC (test code = WBC) 7.9 3.7-10.4 [place] 091392-09-19 12:52:00 Test Item Value Reference Range Interpretation Comments Retic Perf (test code = Yes (04/19/22 7:52 AM) Retic Perf) [facility] TomballXsomxvfDSPNXXUYUR1829-01-95 12:52:00 Test Item Value Reference Range Interpretation Comments Retic Auto (test code = Retic Auto) 11.8 0.5-1.5 [facility] TomballBoqmdojUIUTCBURIB6109-55-89 12:52:00 Test Item Value Reference Range Interpretation Comments RBC Morph (test code = See Note (04/19/22 7:52 RBC Morph) AM) [facility] TomballYtnqbzgLBRQDDUGUJ2452-80-15 12:52:00 Test Item Value Reference Range Interpretation Comments Plt Morph (test code = Normal (04/19/22 7:52 Plt Morph) AM) [facility] TomballNpmondqWEFXXOUNVG0656-41-15 12:52:00 Test Item Value Reference Range Interpretation Comments Segs (test code = Segs) 53.0 45.0-75.0 [facility] TomballVeupfsgCSMQYFNLHG4221-66-45 12:52:00 Test Item Value Reference Range Interpretation Comments Bands (test code = 4.0 See_Comment [Automat ed message] The Bands) system which ge nerated this result transmit aisha reference range : <=11.0. The reference r duy was not used to interpr et this result as erin l/abnormal. [facility] TomballCfwisieMLTMQGTNGU6501-54-04 12:52:00 Test Item Value Reference Range Interpretation Comments Lymphocytes (test code = Lymphocytes) 29.0 20.0-40.0 [facility] TomballNdorwwfWWQNNAMFBD3720-34-11 12:52:00 Test Item Value Reference Range Interpretation Comments Monocytes (test code = Monocytes) 7.0 2.0-12.0 [place] 091392-09-19 12:52:00 Test Item Value Reference Range Interpretation Comments Eosinophils (test code = 2.0 See_Comment [A utomated message] The Eosinophils) system which ge nerated this result tra nsmitted reference range : <=4.0. The reference r duy was not used to int erpret this result as normal/abnormal . [facility] TomballGwspelwAMWPETYZAL1760-58-15 12:52:00 Test Item Value Reference Range Interpretation Comments Basophils (test code = 1.0 See_Comment [Aut omated message] The Basophils) system which ge nerated this result tra nsmitted reference range : <=1.0. The reference r duy was not used to int erpret this result as normal/abnormal . [facility] TomballSjuwojeNRKBOYFBRM5513-46-48 12:52:00 Test Item Value Reference Range Interpretation Comments Neutrophils # (test code = Neutrophils 4.5 1.5-8.1 #) [facility] TomballLilvdmbDDHNSZGNTQ4452-53-64 12:52:00 Test Item Value Reference Range Interpretation Comments Lymphocytes # (test code = Lymphocytes 2.3 1.0-5.5 #) [facility] TomballAetqcrvQUOTDVGWUT4227-51-71 12:52:00 Test Item Value Reference Range Interpretation Comments Monocytes # (test code 0.6 See_Comment [Aut omated message] The = Monocytes #) system which generated this result tra nsmitted reference range : <=0.8. The reference r duy was not used to int erpret this result as normal/abnormal . [facility]ballOhtaypyALWZDCJPDU0094-29-08 12:52:00 Test Item Value Reference Range Interpretation Comments Eosinophils # (test code 0.2 See_Comment [A utomated message] The = Eosinophils #) system whic h generated this result tra nsmitted reference range : <=0.5. The reference r duy was not used to int erpret this result as normal/abnormal . [facility] TomballJlrvmsbABDJBOUEOP2496-67-87 12:52:00 Test Item Value Reference Range Interpretation Comments Basophils # (test code 0.1 See_Comment [Aut omated message] The = Basophils #) system which generated this result tra nsmitted reference range : <=0.2. The reference r duy was not used to int erpret this result as normal/abnormal . [facility] TomballDxxercfPEPYMSKMAI4587-09-77 12:52:00 Test Item Value Reference Range Interpretation Comments Metamyelocytes (test code 3.0 See_Comment [ Automated message] = Metamyelocytes) The system which generated this result transmitted ref erence range: <=1.0. T he reference range was not used to int erpret this result as normal/abnormal . [facility] TomballBtbsscqWTEUNNCLVV8452-38-89 12:52:00 Test Item Value Reference Range Interpretation Comments Myelocytes (test code = Myelocytes) 1.0 [place] [address]-09-19 12:52:00 Test Item Value Reference Range Interpretation Comments NRBC (test code = NRBC) 3 [facility] TomballTiqoveyPGPNKXMNAM3500-82-68 12:52:00 Test Item Value Reference Range Interpretation Comments Anisocyte (test code = 2+ *ABN*(04/19/22 Anisocyte) 7:52 AM) [facility] TomballGldodswIVDSUBNOJE5086-96-15 12:52:00 Test Item Value Reference Range Interpretation Comments Microcyte (test code = 1+ *ABN*(04/19/22 Microcyte) 7:52 AM) [facility] TomballSlddzpsBXFMCMLCSF6470-00-20 12:52:00 Test Item Value Reference Range Interpretation Comments Hypochrom (test code = 1+ (04/19/22 7:52 AM) Hypochrom) [facility] TomballYgxqirfMGKBNSIDCT6791-15-29 12:52:00 Test Item Value Reference Range Interpretation Comments Polychrom (test code = Moderate *ABN*(04/19/22 Polychrom) 7:52 AM) [facility] TomballTukmqpaEARPIIVLHS8603-01-30 12:52:00 Test Item Value Reference Range Interpretation Comments Target Cell (test code Marked *ABN*(04/19/22 = Target Cell) 7:52 AM) [facility] TomballEplqdxtBNQVIUTDTX6686-32-15 12:52:00 Test Item Value Reference Range Interpretation Comments Tear Cell (test code Moderate *ABN*(04/19/22 = Tear Cell) 7:52 AM) [facility] TomballAevqrpkSRNBDCWABT9386-59-07 12:52:00 Test Item Value Reference Range Interpretation Comments Schistocyte (test code = 1-3 per HPF Schistocyte) (04/19/22 7:52 AM) [facility] TomballFpscayzXJKHIEJMRT2355-29-30 12:52:00 Test Item Value Reference Range Interpretation Comments Elliptocyte (test code = Slight *ABN*(04/19/22 Elliptocyte) 7:52 AM) [facility] TomballQovadhdVZMYJJDNHA8574-43-09 12:52:00 Test Item Value Reference Range Interpretation Comments Sickle Cell (test code Slight *ABN*(04/19/22 = Sickle Cell) 7:52 AM) [facility]2022-09-19 12:52:00 Test Item Value Reference Range Interpretation Comments Glucose Lvl (test code = Glucose Lvl) 98 70-99 [facility]2022-09-19 12:52:00 Test Item Value Reference Range Interpretation Comments BUN (test code = BUN) 8 7-22 [place] [address]-09-19 12:52:00 Test Item Value Reference Range Interpretation Comments Creatinine Lvl (test code = Creatinine 0.55 0.50-1.40 Lvl) [place] [address]-09-19 12:52:00 Test Item Value Reference Range Interpretation Comments Sodium Lvl (test code = Sodium Lvl) 138 135-145 [place] 105882-09-19 12:52:00 Test Item Value Reference Range Interpretation Comments Potassium Lvl (test code = Potassium 3.9 3.5-5.1 Lvl) [place] [address]-09-19 12:52:00 Test Item Value Reference Range Interpretation Comments Chloride Lvl (test code = Chloride Lvl) 107 95-109 [place] [address]-09-19 12:52:00 Test Item Value Reference Range Interpretation Comments CO2 (test code = CO2) 26 24-32 [place] 105882-09-19 12:52:00 Test Item Value Reference Range Interpretation Comments Calcium Lvl (test code = Calcium Lvl) 8.8 8.5-10.5 [place] [address]-09-19 12:52:00 Test Item Value Reference Range Interpretation Comments Total Protein (test code = Total 8.2 6.4-8.4 Protein) [place] [address]-09-19 12:52:00 Test Item Value Reference Range Interpretation Comments Albumin Lvl (test code = Albumin Lvl) 4.6 3.5-5.0 [place] [address]-09-19 12:52:00 Test Item Value Reference Range Interpretation Comments ALT (test code = ALT) 23 See_Comment [Auto mated message] The system which ge nerated this result transmit aisha reference range : <=65. The reference range was not used to interpr et this result as erin l/abnormal. [place] 105882-09-19 12:52:00 Test Item Value Reference Range Interpretation Comments AST (test code = AST) 36 See_Comment [Auto mated message] The system which ge nerated this result transmit aisha reference range : <=37. The reference range was not used to interpr et this result as erin l/abnormal. [facility] [id number] 12:52:00 Test Item Value Reference Range Interpretation Comments Alk Phos (test code = Alk Phos) 104 39-136 [facility] [id number] 12:52:00 Test Item Value Reference Range Interpretation Comments Bili Total (test code = Bili Total) 4.3 0.2-1.3 [facility] UDTAE1923-08-06 12:52:00 Test Item Value Reference Range Interpretation Comments AGAP (test code = AGAP) 8.9 10.0-20.0 [facility] CenterInfectiousCLER[facility] [id number] 12:52:00 Test Item Value Reference Range Interpretation Comments B/C Ratio (test code = B/C Ratio) 15 1 6-25 [facility] [id number] 12:52:00 Test Item Value Reference Range Interpretation Comments Globulin (test code = Globulin) 3.6 2.7-4.2 [facility] [id number] 12:52:00 Test Item Value Reference Range Interpretation Comments A/G Ratio (test code = A/G Ratio) 1.3 1 0.7-1.6 [facility] [id number] 12:52:00 Test Item Value Reference Range Interpretation Comments eGFR (test code = eGFR) 144 [facility] and abdergznyiiy3413-73-02 14:00:00 Test Item Value Reference Interpretation Comments Range WHITE BLOOD CELL See_Comment [Automated COUNT (test code = message] The 6690-2) system which generated this result transmit aisha reference range : 3.8 - 10.8 Thousand/uL. Th e reference range was not used to interpret this result as normal/abnormal . RED BLOOD CELL COUNT See_Comment L [Autom ated (test code = 789-8) message] The system which generated this result transmit aisha reference range : 4.20 - 5.80 Million/uL. The reference range was not used to interpret this result as normal/abnormal . HEMOGLOBIN (test 8.6 g/dL 13.2-17.1 L code = 718-7) HEMATOCRIT (test 24.9 % 38.5-50 L code = 4544-3) MCV (test code = 96.5 fL 80-100 787-2) MCH (test code = 33.3 pg 27-33 H 785-6) MCHC (test code = 34.5 g/dL 32-36 786-4) RDW (test code = 22.4 % 11-15 H 788-0) PLATELET COUNT (test See_Comment [Autom ated code = 777-3) message] The system which generated this result transmit aisha reference range : 140 - 400 Thousand/uL. Th e reference range was not used to interpret this result as normal/abnormal . MPV (test code = 9.4 fL 7.5-12.5 776-5) ABSOLUTE NEUTROPHILS See_Comment [Autom ated (test code = 751-8) message] The system which generated this result transmit aisha reference range : 1500 - 7800 cells/uL. The reference range was not used to interpret this result as normal/abnormal . ABSOLUTE LYMPHOCYTES See_Comment [Autom ated (test code = 731-0) message] The system which generated this result transmit aisha reference range : 850 - 3900 cells/uL. The reference range was not used to interpret this result as normal/abnormal . ABSOLUTE MONOCYTES See_Comment [Automat ed (test code = 742-7) message] The system which generated this result transmit aisha reference range : 200 - 950 cells/uL. The reference range was not used to interpret this result as normal/abnormal . ABSOLUTE EOSINOPHILS See_Comment [Autom ated (test code = 711-2) message] The system which generated this result transmit aisha reference range : 15 - 500 cells/ uL. The reference range was not u sed to interpret th is result as normal/abnormal . ABSOLUTE BASOPHILS See_Comment [Automat ed (test code = 704-7) message] The system which generated this result transmit aisha reference range : 0 - 200 cells/uL. The reference range was not u sed to interpret th is result as normal/abnormal . NEUTROPHILS (test 50.5 % code = 770-8) LYMPHOCYTES (test 37 % code = 736-9) MONOCYTES (test code 8.9 % = 5905-5) EOSINOPHILS (test 2.7 % code = 713-8) BASOPHILS (test code 0.9 % = 706-2) COMMENT(S) (test SEE NOTE Polychromas ia 1 code = 8251-1) +Anisocytosis 2 +Sickle cells 3 + RAC (test code = Performing RAC) Organization Information: ? ?Site ID: [facility] ? ?Name: [facility] ? ?Address: [address] [place] [phone] ? ?Director: JOSÉ VEGA MD Lab Interpretation Abnormal (test code = 83960-6) [facility] yfrdu0555-85-02 14:00:00 Test Item Value Reference Range Interpretation Comments GLUCOSE (test code = 72 mg/dL 65-99 ? 2345-7) Fasting referen ce interval UREA NITROGEN (BUN) 9 mg/dL 7-25 (test code = 3094-0) CREATININE (test 0.49 mg/dL 0.6-1.24 L code = 2160-0) EGFR (test code = See_Comment The eGFR i s based [id number]) on the CKD-EPI 2020 equation. To calculate the n ew eGFR from a previous Creatinine or Cystatin Cresul t, go to [email or web address] ne y.org/professio na tarun/kdoqi/gfr%5F ca lculator [Automated message] The system which generated this result transmitted reference range : > OR = 60 mL/min/1.73m2. The reference range was not used to interpr et this result as normal/abnormal . BUN/CREATININE RATIO See_Comment [Autom ated (test code = 3097-3) message ] The system which generated this result transmitted reference range : 6 - 22 (calc). The reference range was not used to interpr et this result as normal/abnormal . SODIUM (test code = 137 mmol/L 574-422 7164-2) POTASSIUM (test code 4.2 mmol/L 3.5-5.3 = 2823-3) CHLORIDE (test code 103 mmol/L 98-110 = 2075-0) CARBON DIOXIDE (test 25 mmol/L 20-32 code = 2028-9) CALCIUM (test code = 9.2 mg/dL 8.6-10.3 56654-6) PROTEIN, TOTAL (test 7.3 g/dL 6.1-8.1 code = 2885-2) ALBUMIN (test code = 4.7 g/dL 3.6-5.1 1751-7) GLOBULIN (test code See_Comment [Automa aisha = 93198-6) message] The system which generated this result transmitted reference range : 1.9 - 3.7 g/dL (calc). The reference range was not used to interpret this result as normal/abnormal . ALBUMIN/GLOBULIN See_Comment [Automated RATIO (test code = message] The 1759-0) system which generated this result transmitted reference range : 1.0 - 2.5 (calc ). The reference range was not used to interpr et this result as normal/abnormal . BILIRUBIN, TOTAL 3.5 mg/dL 0.2-1.2 H (test code = 1975-2) ALKALINE PHOSPHATASE 86 U/L 36-130 (test code = 6768-6) AST (test code = 31 U/L 10-40 1920-8) ALT (test code = 15 U/L 9-46 1742-6) RAC (test code = Performing RAC) Organization Information: ? ?Site ID: [facility] ? ?Name: [facility] ? ?Address: [address] [place] [address] ? ?Director: JOSÉ VEGA MD Lab Interpretation Abnormal (test code = 58786-0) [facility] euzvstnllbqgk6993-30-28 14:00:00 Test Item Value Reference Range Interpretation Comments LD (test code = 03900-8) 549 U/L 100-220 H RAC (test code = RAC) Performing Organization Information: ? ?Site ID: RGA ? ?Name: [facility] [facility] ? ?Address: [address] [place] [address] ? ?Director: JOSÉ VEGA MD Lab Interpretation (test Abnormal code = 96956-0) [place] JbdpsgIifmuevyrpmgo7794-10-83 14:00:00 Test Item Value Reference Range Interpretation Comments RETICULOCYTE COUNT, 12 % AUTOMATED (test code = 02220-9) RETICULOCYTE, See_Comment H [Automated ABSOLUTE (test code message] The = 72419-3) system which generated this result transmitted reference range : 00594 - 76620 cells/uL. The reference range was not used to interpret this result as normal/abnormal . RAC (test code = Performing RAC) Organization Information: ? ?Site ID: [facility] ? ?Name: [facility] ? ?Address: [address] [place] [address] ? ?Director: JOSÉ VEGA MD Lab Interpretation Abnormal (test code = 65908-0) [place] HealthUrinalysis with reflex asohidelihg0404-28-48 11:00:00 Test Item Value Reference Range Interpretation Comments COLOR (test NOT DONE TEST NOT PERFOR MED code = 5778-6) Improper spec imen submitted.If indicated, plea se re-submitin a [facility] standard yellow-topurine tube. RAC (test code Performing = RAC) Organization Information: ? ?Site ID: [facility] ? ?Name: [facility] ? ?Address: [address] [place] [phone] ? ?Director: JOSÉ VEGA MD [place] HealthCHEM [id number] 09:34:00 Test Item Value Reference Range Interpretation Comments Glucose Lvl (test code = Glucose Lvl) 88 70-99 [facility]2022-06-19 09:34:00 Test Item Value Reference Range Interpretation Comments BUN (test code = BUN) 7 7-22 [facility]2022-06-19 09:34:00 Test Item Value Reference Range Interpretation Comments Creatinine Lvl (test code = Creatinine 0.53 0.50-1.40 Lvl) [facility] CenterInfectiousUNC HEALTH JOHNSTON CLAYTONALFCW6194-93-84 09:34:00 Test Item Value Reference Range Interpretation Comments Sodium Lvl (test code = Sodium Lvl) 131 135-145 [facility]2022-06-19 09:34:00 Test Item Value Reference Range Interpretation Comments Potassium Lvl (test code = Potassium 4.4 3.5-5.1 Lvl) [facility]2022-06-19 09:34:00 Test Item Value Reference Range Interpretation Comments Chloride Lvl (test code = Chloride Lvl) 99 95-109 [place] 105882-06-19 09:34:00 Test Item Value Reference Range Interpretation Comments CO2 (test code = CO2) 25 24-32 [facility]2022-06-19 09:34:00 Test Item Value Reference Range Interpretation Comments Calcium Lvl (test code = Calcium Lvl) 9.2 8.5-10.5 [facility]2022-06-19 09:34:00 Test Item Value Reference Range Interpretation Comments AGAP (test code = AGAP) 11.4 10.0-20.0 [facility]2022-06-19 09:34:00 Test Item Value Reference Range Interpretation Comments eGFR (test code = eGFR) [address]06-19 09:34:00 Test Item Value Reference Range Interpretation Comments LDH (test code = LDH) 683 98-[address]06-19 09:34:00 Test Item Value Reference Range Interpretation Comments Bili Total (test code = Bili Total) 2.0 0.2-1.[address]06-19 09:34:00 Test Item Value Reference Range Interpretation Comments Bili Direct (test code 0.7 See_Comment [Aut omated message] The = Bili Direct) system which generated this result tra nsmitted reference range : <=0.3. The reference r duy was not used to int erpret this result as erin l/abnormal. [address]06-19 09:34:00 Test Item Value Reference Range Interpretation Comments Bili Indirect (test 1.3 See_Comment [Automa aisha message] The code = Bili Indirect) system which generated this result tra nsmitted reference range : <=1.0. The reference r duy was not used to int erpret this result as normal/abnormal . [address]06-19 09:34:00 Test Item Value Reference Range Interpretation Comments Retic Perf (test code = Yes (01/17/22 4:34 AM) Retic Perf) [address]06-19 09:34:00 Test Item Value Reference Range Interpretation Comments Retic Auto (test code = Retic Auto) 10.4 0.5-1.5 [place] [address]-06-19 09:34:00 Test Item Value Reference Range Interpretation Comments WBC (test code = WBC) 6.9 3.7-10.[address]06-19 09:34:00 Test Item Value Reference Range Interpretation Comments RBC (test code = RBC) 2.32 4.70-6.10 [place] [address]-06-19 09:34:00 Test Item Value Reference Range Interpretation Comments Hgb (test code = Hgb) 7.5 14.0-18.0 [place] [address]-06-19 09:34:00 Test Item Value Reference Range Interpretation Comments Hct (test code = Hct) 21.8 42.0-54.0 [place] 091392-06-19 09:34:00 Test Item Value Reference Range Interpretation Comments MCV (test code = MCV) 94.2 80.0-94.0 [place] 091392-06-19 09:34:00 Test Item Value Reference Range Interpretation Comments MCH (test code = MCH) 32.2 pg 27.0-31.0 [place] 091392-06-19 09:34:00 Test Item Value Reference Range Interpretation Comments MCHC (test code = MCHC) 34.2 32.0-36.0 [place] 091392-06-19 09:34:00 Test Item Value Reference Range Interpretation Comments RDW (test code = RDW) 22.6 11.5-14.5 [place] 091392-06-19 09:34:00 Test Item Value Reference Range Interpretation Comments Platelet (test code = Platelet) 422 133-450 [place] 091392-06-19 09:34:00 Test Item Value Reference Range Interpretation Comments MPV (test code = MPV) 7.7 7.4-10.4 [place] 091392-06-19 09:34:00 Test Item Value Reference Range Interpretation Comments Segs (test code = Segs) 58.0 45.0-75.0 [place] 091392-06-19 09:34:00 Test Item Value Reference Range Interpretation Comments Lymphocytes (test code = Lymphocytes) 23.0 20.0-40.0 [place] 091392-06-19 09:34:00 Test Item Value Reference Range Interpretation Comments Monocytes (test code = Monocytes) 16.0 2.0-12.0 [place] [address]-06-19 09:34:00 Test Item Value Reference Range Interpretation Comments Eosinophils (test code = 3.0 See_Comment [A utomated message] The Eosinophils) system which ge nerated this result tra nsmitted reference range : <=4.0. The reference r duy was not used to int erpret this result as normal/abnormal . [place] 091392-06-19 09:34:00 Test Item Value Reference Range Interpretation Comments Neutrophils # (test code = Neutrophils 4.0 1.5-8.1 #) [facility] TomballPosmjhlBFLJEYOTDQ5912-36-49 09:34:00 Test Item Value Reference Range Interpretation Comments Lymphocytes # (test code = Lymphocytes 1.6 1.0-5.5 #) [facility] TomballPrkngbeILGCFZRKZV9646-85-76 09:34:00 Test Item Value Reference Range Interpretation Comments Monocytes # (test code 1.1 See_Comment [Aut omated message] The = Monocytes #) system which generated this result tra nsmitted reference range : <=0.8. The reference r duy was not used to int erpret this result as normal/abnormal . [facility] TomballRkdtjabLRPBCRCXOB4575-68-23 09:34:00 Test Item Value Reference Range Interpretation Comments Eosinophils # (test code 0.2 See_Comment [A utomated message] The = Eosinophils #) system whic h generated this result tra nsmitted reference range : <=0.5. The reference r duy was not used to int erpret this result as normal/abnormal . [facility] TomballHfhlhuhDIPTFPVTXY7951-74-34 09:34:00 Test Item Value Reference Range Interpretation Comments NRBC (test code = NRBC) 46 [place] 091392-06-19 09:34:00 Test Item Value Reference Range Interpretation Comments Tot Cell Ct (test code = Tot Cell Ct) 100 1 [facility] TomballNxrndesXBOQBTRTWV2521-05-44 09:34:00 Test Item Value Reference Range Interpretation Comments Anisocyte (test code = 2+ *ABN*(01/17/22 Anisocyte) 4:34 AM) [facility] TomballVwoylphLHGUPWZYCT6232-67-28 09:34:00 Test Item Value Reference Range Interpretation Comments Macrocyte (test code = 1+ *ABN*(01/17/22 Macrocyte) 4:34 AM) [facility] TomballUscggzrMOMFUDETHE4421-78-47 09:34:00 Test Item Value Reference Range Interpretation Comments Microcyte (test code = 1+ *ABN*(01/17/22 Microcyte) 4:34 AM) [place] [address]-06-19 09:34:00 Test Item Value Reference Range Interpretation Comments Hypochrom (test code = 1+ (01/17/22 4:34 AM) Hypochrom) [facility] TomballAukwegqNEREEQHJVD2254-93-33 09:34:00 Test Item Value Reference Range Interpretation Comments Polychrom (test code = Moderate *ABN*(01/17/22 Polychrom) 4:34 AM) [place] 091392-06-19 09:34:00 Test Item Value Reference Range Interpretation Comments Target Cell (test code Marked *ABN*(01/17/22 = Target Cell) 4:34 AM) [place] 091392-06-19 09:34:00 Test Item Value Reference Range Interpretation Comments Sickle Cell (test code Slight *ABN*(01/17/22 = Sickle Cell) 4:34 AM) [place] 091392-06-19 09:34:00 Test Item Value Reference Range Interpretation Comments Large Plt (test code Moderate *ABN*(01/17/22 = Large Plt) 4:34 AM) [place] 105882-06-19 09:34:00 Test Item Value Reference Range Interpretation Comments Glucose Lvl (test code = Glucose Lvl) 88 70-99 [place] 105882-06-19 09:34:00 Test Item Value Reference Range Interpretation Comments BUN (test code = BUN) 7 7-22 [place] 105882-06-19 09:34:00 Test Item Value Reference Range Interpretation Comments Creatinine Lvl (test code = Creatinine 0.53 0.50-1.40 Lvl) [facility]2022-06-19 09:34:00 Test Item Value Reference Range Interpretation Comments Sodium Lvl (test code = Sodium Lvl) 131 135-145 [place] 105882-06-19 09:34:00 Test Item Value Reference Range Interpretation Comments Potassium Lvl (test code = Potassium 4.4 3.5-5.1 Lvl) [place] 105882-06-19 09:34:00 Test Item Value Reference Range Interpretation Comments Chloride Lvl (test code = Chloride Lvl) 99 95-109 [place] 105882-06-19 09:34:00 Test Item Value Reference Range Interpretation Comments CO2 (test code = CO2) 25 24-32 [place] 105882-06-19 09:34:00 Test Item Value Reference Range Interpretation Comments Calcium Lvl (test code = Calcium Lvl) 9.2 8.5-10.5 [place] 105882-06-19 09:34:00 Test Item Value Reference Range Interpretation Comments AGAP (test code = AGAP) 11.4 10.0-20.[address]06-19 09:34:00 Test Item Value Reference Range Interpretation Comments eGFR (test code = eGFR) 150 [place] 105882-06-19 09:34:00 Test Item Value Reference Range Interpretation Comments LDH (test code = LDH) 683 98-192 [place] 105882-06-19 09:34:00 Test Item Value Reference Range Interpretation Comments Bili Total (test code = Bili Total) 2.0 0.2-1.[address]06-19 09:34:00 Test Item Value Reference Range Interpretation Comments Bili Direct (test code 0.7 See_Comment [Aut omated message] The = Bili Direct) system which generated this result tra nsmitted reference range : <=0.3. The reference r duy was not used to int erpret this result as erin l/abnormal. [place] 105882-06-19 09:34:00 Test Item Value Reference Range Interpretation Comments Bili Indirect (test 1.3 See_Comment [Automa aisha message] The code = Bili Indirect) system which generated this result tra nsmitted reference range : <=1.0. The reference r duy was not used to int erpret this result as normal/abnormal . [place] 091392-06-19 09:34:00 Test Item Value Reference Range Interpretation Comments Retic Perf (test code = Yes (01/17/22 4:34 AM) Retic Perf) [place] 091392-06-19 09:34:00 Test Item Value Reference Range Interpretation Comments Retic Auto (test code = Retic Auto) 10.4 0.5-1.5 [place] [address]-06-19 09:34:00 Test Item Value Reference Range Interpretation Comments WBC (test code = WBC) 6.9 3.7-10.4 [place] [address]-06-19 09:34:00 Test Item Value Reference Range Interpretation Comments RBC (test code = RBC) 2.32 4.70-6.10 [place] [address]-06-19 09:34:00 Test Item Value Reference Range Interpretation Comments Hgb (test code = Hgb) 7.5 14.0-18.0 [place] [address]-06-19 09:34:00 Test Item Value Reference Range Interpretation Comments Hct (test code = Hct) 21.8 42.0-54.0 [place] 091392-06-19 09:34:00 Test Item Value Reference Range Interpretation Comments MCV (test code = MCV) 94.2 80.0-94.0 [place] 091392-06-19 09:34:00 Test Item Value Reference Range Interpretation Comments MCH (test code = MCH) 32.2 pg 27.0-31.0 [place] 091392-06-19 09:34:00 Test Item Value Reference Range Interpretation Comments MCHC (test code = MCHC) 34.2 32.0-36.0 [place] 091392-06-19 09:34:00 Test Item Value Reference Range Interpretation Comments RDW (test code = RDW) 22.6 11.5-14.5 [place] 091392-06-19 09:34:00 Test Item Value Reference Range Interpretation Comments Platelet (test code = Platelet) 422 133-450 [facility]ballNuiajgjCGCLGUPCVB0141-22-53 09:34:00 Test Item Value Reference Range Interpretation Comments MPV (test code = MPV) 7.7 7.4-10.4 [place] 091392-06-19 09:34:00 Test Item Value Reference Range Interpretation Comments Segs (test code = Segs) 58.0 45.0-75.0 [place] 091392-06-19 09:34:00 Test Item Value Reference Range Interpretation Comments Lymphocytes (test code = Lymphocytes) 23.0 20.0-40.0 [place] 091392-06-19 09:34:00 Test Item Value Reference Range Interpretation Comments Monocytes (test code = Monocytes) 16.0 2.0-12.0 [place] [address]-06-19 09:34:00 Test Item Value Reference Range Interpretation Comments Eosinophils (test code = 3.0 See_Comment [A utomated message] The Eosinophils) system which ge nerated this result tra nsmitted reference range : <=4.0. The reference r duy was not used to int erpret this result as normal/abnormal . [place] 091392-06-19 09:34:00 Test Item Value Reference Range Interpretation Comments Neutrophils # (test code = Neutrophils 4.0 1.5-8.1 #) [facility] TomballWofiyplMOWEZGJSOB7635-45-92 09:34:00 Test Item Value Reference Range Interpretation Comments Lymphocytes # (test code = Lymphocytes 1.6 1.0-5.5 #) [facility] TomballYoaprzeTXIBUURSBY2247-53-55 09:34:00 Test Item Value Reference Range Interpretation Comments Monocytes # (test code 1.1 See_Comment [Aut omated message] The = Monocytes #) system which generated this result tra nsmitted reference range : <=0.8. The reference r duy was not used to int erpret this result as normal/abnormal . [facility] TomballGjhfhdxDRUGNLVZCB6527-13-89 09:34:00 Test Item Value Reference Range Interpretation Comments Eosinophils # (test code 0.2 See_Comment [A utomated message] The = Eosinophils #) system whic h generated this result tra nsmitted reference range : <=0.5. The reference r duy was not used to int erpret this result as normal/abnormal . [facility] TomballJjjjlqnQKUVBCSGRD6998-32-54 09:34:00 Test Item Value Reference Range Interpretation Comments NRBC (test code = NRBC) 46 [facility] TomballUpqvothUQVWMIBEDR1937-06-93 09:34:00 Test Item Value Reference Range Interpretation Comments Tot Cell Ct (test code = Tot Cell Ct) 100 1 [facility] TomballPufrhdcDCOZACDECQ9666-04-60 09:34:00 Test Item Value Reference Range Interpretation Comments Anisocyte (test code = 2+ *ABN*(01/17/22 Anisocyte) 4:34 AM) [facility] TomballEgerzjvLZAJMDRKIP8193-33-09 09:34:00 Test Item Value Reference Range Interpretation Comments Macrocyte (test code = 1+ *ABN*(01/17/22 Macrocyte) 4:34 AM) [facility] TomballKayajndTQSZZVAGBX0075-48-65 09:34:00 Test Item Value Reference Range Interpretation Comments Microcyte (test code = 1+ *ABN*(01/17/22 Microcyte) 4:34 AM) [facility] TomballSjublggICLGPJDWJU0527-47-64 09:34:00 Test Item Value Reference Range Interpretation Comments Hypochrom (test code = 1+ (01/17/22 4:34 AM) Hypochrom) [place] 091392-06-19 09:34:00 Test Item Value Reference Range Interpretation Comments Polychrom (test code = Moderate *ABN*(01/17/22 Polychrom) 4:34 AM) [facility] TomballXztmwqqNUHVMRAVMT3169-94-36 09:34:00 Test Item Value Reference Range Interpretation Comments Target Cell (test code Marked *ABN*(01/17/22 = Target Cell) 4:34 AM) [facility] TomballFlruqdmIEGRGVNUYH6058-77-48 09:34:00 Test Item Value Reference Range Interpretation Comments Sickle Cell (test code Slight *ABN*(01/17/22 = Sickle Cell) 4:34 AM) [facility] TomballYqbpevxKAQAEQMJEV2820-11-46 09:34:00 Test Item Value Reference Range Interpretation Comments Large Plt (test code Moderate *ABN*(01/17/22 = Large Plt) 4:34 AM) [facility]2022-06-18 09:47:00 Test Item Value Reference Range Interpretation Comments Ferritin Lvl (test code = Ferritin Lvl) 6899 22-568 [facility]CARDIBEAUMONT HOSPITALHLWABZB5757-91-68 09:47:00 Test Item Value Reference Range Interpretation Comments proBNP (test code = 8 See_Comment [Automa aisha message] The proBNP) system which ge nerated this result tra nsmitted reference range : <=125. The reference r duy was not used to int erpret this result as erin l/abnormal. [facility] CenterInfectiousUNC HEALTH JOHNSTON CLAYTONSIJLM7420-88-44 09:47:00 Test Item Value Reference Range Interpretation Comments LDH (test code = LDH) 722 98-192 [facility]2022-06-18 09:47:00 Test Item Value Reference Range Interpretation Comments Bili Total (test code = Bili Total) 3.3 0.2-1.3 [facility]2022-06-18 09:47:00 Test Item Value Reference Range Interpretation Comments Bili Direct (test code 1.4 See_Comment [Aut omated message] The = Bili Direct) system which generated this result tra nsmitted reference range : <=0.3. The reference r duy was not used to int erpret this result as erin l/abnormal. [facility] CenterBIBA Apparels [id number] 09:47:00 Test Item Value Reference Range Interpretation Comments Bili Indirect (test 1.9 See_Comment [Automa aisha message] The code = Bili Indirect) system which generated this result tra nsmitted reference range : <=1.0. The reference r duy was not used to int erpret this result as normal/abnormal . [facility]2022-06-18 09:47:00 Test Item Value Reference Range Interpretation Comments Glucose Lvl (test code = Glucose Lvl) 99 70-99 [place] 105882-06-18 09:47:00 Test Item Value Reference Range Interpretation Comments BUN (test code = BUN) 9 7-22 [place] 105882-06-18 09:47:00 Test Item Value Reference Range Interpretation Comments Creatinine Lvl (test code = Creatinine 0.47 0.50-1.40 Lvl) [place] 105882-06-18 09:47:00 Test Item Value Reference Range Interpretation Comments Sodium Lvl (test code = Sodium Lvl) 132 135-145 [place] 105882-06-18 09:47:00 Test Item Value Reference Range Interpretation Comments Potassium Lvl (test code = Potassium 4.0 3.5-5.1 Lvl) [place] 105882-06-18 09:47:00 Test Item Value Reference Range Interpretation Comments Chloride Lvl (test code = Chloride Lvl) 97 95-109 [place] 105882-06-18 09:47:00 Test Item Value Reference Range Interpretation Comments CO2 (test code = CO2) 27 24-32 [place] 105882-06-18 09:47:00 Test Item Value Reference Range Interpretation Comments Calcium Lvl (test code = Calcium Lvl) 9.2 8.5-10.5 [place] 105882-06-18 09:47:00 Test Item Value Reference Range Interpretation Comments AGAP (test code = AGAP) 12.0 10.0-20.0 [place] 105882-06-18 09:47:00 Test Item Value Reference Range Interpretation Comments eGFR (test code = eGFR) 158 [place] 091392-06-18 09:47:00 Test Item Value Reference Range Interpretation Comments Retic Perf (test code = Yes (01/16/22 4:47 AM) Retic Perf) [place] 091392-06-18 09:47:00 Test Item Value Reference Range Interpretation Comments Retic Auto (test code = Retic Auto) 8.6 0.5-1.5 [place] 091392-06-18 09:47:00 Test Item Value Reference Range Interpretation Comments Neutrophils # (test code = Neutrophils 5.0 1.5-8.1 #) [place] 091392-06-18 09:47:00 Test Item Value Reference Range Interpretation Comments Lymphocytes # (test code = Lymphocytes 2.1 1.0-5.5 #) [place] [address]-06-18 09:47:00 Test Item Value Reference Range Interpretation Comments Monocytes # (test code 0.6 See_Comment [Aut omated message] The = Monocytes #) system which generated this result tra nsmitted reference range : <=0.8. The reference r duy was not used to int erpret this result as normal/abnormal . [place] [address]-06-18 09:47:00 Test Item Value Reference Range Interpretation Comments Eosinophils # (test code 0.2 See_Comment [A utomated message] The = Eosinophils #) system whic h generated this result tra nsmitted reference range : <=0.5. The reference r duy was not used to int erpret this result as normal/abnormal . [facility] TomballNvvufrfNRTJWBFLPH2381-40-95 09:47:00 Test Item Value Reference Range Interpretation Comments Segs (test code = Segs) 63.0 45.0-75.0 [place] 091392-06-18 09:47:00 Test Item Value Reference Range Interpretation Comments Bands (test code = 0.0 See_Comment [Automat ed message] The Bands) system which ge nerated this result transmit aisha reference range : <=11.0. The reference r duy was not used to interpr et this result as erin l/abnormal. [place] 091392-06-18 09:47:00 Test Item Value Reference Range Interpretation Comments Lymphocytes (test code = Lymphocytes) 27.0 20.0-40.0 [place] [address]-06-18 09:47:00 Test Item Value Reference Range Interpretation Comments Monocytes (test code = Monocytes) 7.0 2.0-12.0 [place] [address]-06-18 09:47:00 Test Item Value Reference Range Interpretation Comments Eosinophils (test code = 2.0 See_Comment [A utomated message] The Eosinophils) system which ge nerated this result tra nsmitted reference range : <=4.0. The reference r duy was not used to int erpret this result as normal/abnormal . [facility] TomballTsqhxetKNAXYBHEHS8111-03-00 09:47:00 Test Item Value Reference Range Interpretation Comments Metamyelocytes (test code 1.0 See_Comment [ Automated message] = Metamyelocytes) The system which generated this result transmitted ref erence range: <=1.0. T he reference range was not used to int erpret this result as normal/abnormal . [facility] TomballZyksrkaGMILDHPALS6446-89-91 09:47:00 Test Item Value Reference Range Interpretation Comments Atypical Lymphs (test code = Atypical 0.0 Lymphs) [place] 091392-06-18 09:47:00 Test Item Value Reference Range Interpretation Comments NRBC (test code = NRBC) 31 [place] 091392-06-18 09:47:00 Test Item Value Reference Range Interpretation Comments RBC Morph (test code = See Note (01/16/22 4:47 RBC Morph) AM) [place] 091392-06-18 09:47:00 Test Item Value Reference Range Interpretation Comments Plt Morph (test code = See Note (01/16/22 4:47 Plt Morph) AM) [facility] TomballUgxkrbsECGXJNGGOH5473-46-22 09:47:00 Test Item Value Reference Range Interpretation Comments Tot Cell Ct (test code = Tot Cell Ct) 100 1 [place] 091392-06-18 09:47:00 Test Item Value Reference Range Interpretation Comments Anisocyte (test code = 2+ *ABN*(01/16/22 Anisocyte) 4:47 AM) [place] 091392-06-18 09:47:00 Test Item Value Reference Range Interpretation Comments Macrocyte (test code = 1+ *ABN*(01/16/22 Macrocyte) 4:47 AM) [place] 091392-06-18 09:47:00 Test Item Value Reference Range Interpretation Comments Polychrom (test code = Moderate *ABN*(01/16/22 Polychrom) 4:47 AM) [place] 091392-06-18 09:47:00 Test Item Value Reference Range Interpretation Comments Target Cell (test code Moderate *ABN*(01/16/22 = Target Cell) 4:47 AM) [facility] TomballXnxkyraLSYTWPFBGX2721-97-89 09:47:00 Test Item Value Reference Range Interpretation Comments Elliptocyte (test code = Slight *ABN*(01/16/22 Elliptocyte) 4:47 AM) [facility] TomballUuqznsoEYEFRIWCWW3842-98-84 09:47:00 Test Item Value Reference Range Interpretation Comments Sickle Cell (test code Slight *ABN*(01/16/22 = Sickle Cell) 4:47 AM) [facility] TomballHieprgnBYXAPXRVWY3989-61-75 09:47:00 Test Item Value Reference Range Interpretation Comments Giant Plt (test code Moderate *ABN*(01/16/22 = Giant Plt) 4:47 AM) [facility]2022-06-18 09:47:00 Test Item Value Reference Range Interpretation Comments Ferritin Lvl (test code = Ferritin Lvl) 6899 22-790 [facility] CenterCARDIAC NSUHYXU1223-28-86 09:47:00 Test Item Value Reference Range Interpretation Comments proBNP (test code = 8 See_Comment [Automa aisha message] The proBNP) system which ge nerated this result tra nsmitted reference range : <=125. The reference r duy was not used to int erpret this result as erin l/abnormal. [facility] CenterInfectiousUNC HEALTH JOHNSTON CLAYTONYUXQU2123-11-42 09:47:00 Test Item Value Reference Range Interpretation Comments LDH (test code = LDH) 722 98-192 [facility]2022-06-18 09:47:00 Test Item Value Reference Range Interpretation Comments Bili Total (test code = Bili Total) 3.3 0.2-1.3 [facility]2022-06-18 09:47:00 Test Item Value Reference Range Interpretation Comments Bili Direct (test code 1.4 See_Comment [Aut omated message] The = Bili Direct) system which generated this result tra nsmitted reference range : <=0.3. The reference r duy was not used to int erpret this result as erin l/abnormal. [facility] CenterThree [facility] [id number] 09:47:00 Test Item Value Reference Range Interpretation Comments Bili Indirect (test 1.9 See_Comment [Automa aisha message] The code = Bili Indirect) system which generated this result tra nsmitted reference range : <=1.0. The reference r duy was not used to int erpret this result as normal/abnormal . [place] 105882-06-18 09:47:00 Test Item Value Reference Range Interpretation Comments Glucose Lvl (test code = Glucose Lvl) 99 70-99 [place] [address]-06-18 09:47:00 Test Item Value Reference Range Interpretation Comments BUN (test code = BUN) 9 7-22 [place] 105882-06-18 09:47:00 Test Item Value Reference Range Interpretation Comments Creatinine Lvl (test code = Creatinine 0.47 0.50-1.40 Lvl) [place] 105882-06-18 09:47:00 Test Item Value Reference Range Interpretation Comments Sodium Lvl (test code = Sodium Lvl) 132 135-145 [place] 105882-06-18 09:47:00 Test Item Value Reference Range Interpretation Comments Potassium Lvl (test code = Potassium 4.0 3.5-5.1 Lvl) [place] 105882-06-18 09:47:00 Test Item Value Reference Range Interpretation Comments Chloride Lvl (test code = Chloride Lvl) 97 95-109 [place] 105882-06-18 09:47:00 Test Item Value Reference Range Interpretation Comments CO2 (test code = CO2) 27 24-32 [place] 105882-06-18 09:47:00 Test Item Value Reference Range Interpretation Comments Calcium Lvl (test code = Calcium Lvl) 9.2 8.5-10.5 [place] 105882-06-18 09:47:00 Test Item Value Reference Range Interpretation Comments AGAP (test code = AGAP) 12.0 10.0-20.0 [place] 105882-06-18 09:47:00 Test Item Value Reference Range Interpretation Comments eGFR (test code = eGFR) 158 [place] 091392-06-18 09:47:00 Test Item Value Reference Range Interpretation Comments Retic Perf (test code = Yes (01/16/22 4:47 AM) Retic Perf) [place] 091392-06-18 09:47:00 Test Item Value Reference Range Interpretation Comments Retic Auto (test code = Retic Auto) 8.6 0.5-1.5 [place] 091392-06-18 09:47:00 Test Item Value Reference Range Interpretation Comments Neutrophils # (test code = Neutrophils 5.0 1.5-8.1 #) [place] 091392-06-18 09:47:00 Test Item Value Reference Range Interpretation Comments Lymphocytes # (test code = Lymphocytes 2.1 1.0-5.5 #) [place] [address]-06-18 09:47:00 Test Item Value Reference Range Interpretation Comments Monocytes # (test code 0.6 See_Comment [Aut omated message] The = Monocytes #) system which generated this result tra nsmitted reference range : <=0.8. The reference r duy was not used to int erpret this result as normal/abnormal . [place] [address]-06-18 09:47:00 Test Item Value Reference Range Interpretation Comments Eosinophils # (test code 0.2 See_Comment [A utomated message] The = Eosinophils #) system whic h generated this result tra nsmitted reference range : <=0.5. The reference r duy was not used to int erpret this result as normal/abnormal . [place] [address]-06-18 09:47:00 Test Item Value Reference Range Interpretation Comments Segs (test code = Segs) 63.0 45.0-75.0 [place] [address]-06-18 09:47:00 Test Item Value Reference Range Interpretation Comments Bands (test code = 0.0 See_Comment [Automat ed message] The Bands) system which ge nerated this result transmit aisha reference range : <=11.0. The reference r udy was not used to interpr et this result as erin l/abnormal. [facility] TomballBjwmeomIBZMWQCWTK0502-64-81 09:47:00 Test Item Value Reference Range Interpretation Comments Lymphocytes (test code = Lymphocytes) 27.0 20.0-40.0 [place] [address]-06-18 09:47:00 Test Item Value Reference Range Interpretation Comments Monocytes (test code = Monocytes) 7.0 2.0-12.0 [place] [address]-06-18 09:47:00 Test Item Value Reference Range Interpretation Comments Eosinophils (test code = 2.0 See_Comment [A utomated message] The Eosinophils) system which ge nerated this result tra nsmitted reference range : <=4.0. The reference r duy was not used to int erpret this result as normal/abnormal . [place] 091392-06-18 09:47:00 Test Item Value Reference Range Interpretation Comments Metamyelocytes (test code 1.0 See_Comment [ Automated message] = Metamyelocytes) The system which generated this result transmitted ref erence range: <=1.0. T he reference range was not used to int erpret this result as normal/abnormal . [place] 091392-06-18 09:47:00 Test Item Value Reference Range Interpretation Comments Atypical Lymphs (test code = Atypical 0.0 Lymphs) [place] [address]-06-18 09:47:00 Test Item Value Reference Range Interpretation Comments WBC (test code = WBC) 7.9 3.7-10.4 [place] 091392-06-18 09:47:00 Test Item Value Reference Range Interpretation Comments NRBC (test code = NRBC) 31 [place] 091392-06-18 09:47:00 Test Item Value Reference Range Interpretation Comments RBC Morph (test code = See Note (01/16/22 4:47 RBC Morph) AM) [place] [address]-06-18 09:47:00 Test Item Value Reference Range Interpretation Comments Plt Morph (test code = See Note (01/16/22 4:47 Plt Morph) AM) [place] 091392-06-18 09:47:00 Test Item Value Reference Range Interpretation Comments Tot Cell Ct (test code = Tot Cell Ct) 100 1 [place] 091392-06-18 09:47:00 Test Item Value Reference Range Interpretation Comments Anisocyte (test code = 2+ *ABN*(01/16/22 Anisocyte) 4:47 AM) [place] [address]-06-18 09:47:00 Test Item Value Reference Range Interpretation Comments Macrocyte (test code = 1+ *ABN*(01/16/22 Macrocyte) 4:47 AM) [place] [address]-06-18 09:47:00 Test Item Value Reference Range Interpretation Comments Polychrom (test code = Moderate *ABN*(01/16/22 Polychrom) 4:47 AM) [facility] TomballTsezchgCIUSFUMMKF1464-11-30 09:47:00 Test Item Value Reference Range Interpretation Comments Target Cell (test code Moderate *ABN*(01/16/22 = Target Cell) 4:47 AM) [facility] TomballAxirsvdUQZQTJINGC6916-16-21 09:47:00 Test Item Value Reference Range Interpretation Comments Elliptocyte (test code = Slight *ABN*(01/16/22 Elliptocyte) 4:47 AM) [place] 091392-06-18 09:47:00 Test Item Value Reference Range Interpretation Comments Sickle Cell (test code Slight *ABN*(01/16/22 = Sickle Cell) 4:47 AM) [place] 091392-06-18 09:47:00 Test Item Value Reference Range Interpretation Comments Giant Plt (test code Moderate *ABN*(01/16/22 = Giant Plt) 4:47 AM) [facility] TomballKcsotsuKCMMLYHKCP9485-00-91 09:47:00 Test Item Value Reference Range Interpretation Comments WBC (test code = WBC) 7.9 3.7-10.4 [facility] TomballVsskhrwDWXHVYSEBQ9808-80-04 09:47:00 Test Item Value Reference Range Interpretation Comments RBC (test code = RBC) 2.23 4.70-6.10 [place] 091392-06-18 09:47:00 Test Item Value Reference Range Interpretation Comments Hgb (test code = Hgb) 7.0 14.0-18.0 [place] 091392-06-18 09:47:00 Test Item Value Reference Range Interpretation Comments Hct (test code = Hct) 20.5 42.0-54.0 [place] 091392-06-18 09:47:00 Test Item Value Reference Range Interpretation Comments MCV (test code = MCV) 91.7 80.0-94.0 [place] 091392-06-18 09:47:00 Test Item Value Reference Range Interpretation Comments MCH (test code = MCH) 31.2 pg 27.0-31.0 [place] 091392-06-18 09:47:00 Test Item Value Reference Range Interpretation Comments MCHC (test code = MCHC) 34.0 32.0-36.0 [place] 091392-06-18 09:47:00 Test Item Value Reference Range Interpretation Comments RDW (test code = RDW) 22.7 11.5-14.5 [facility]STXDXGYQJJ2015[facility] 09:47:00 Test Item Value Reference Range Interpretation Comments Platelet (test code = Platelet) 332 597-833 [facility] TomballQiyyyheAIQLVPOYGJ7835-21-43 09:47:00 Test Item Value Reference Range Interpretation Comments MPV (test code = MPV) 7.7 7.4-10.4 [facility] HospitalVgwujjtMMHTVXZHLB6345-06-61 09:47:00 Test Item Value Reference Range Interpretation Comments RBC (test code = RBC) 2.23 4.70-6.10 [facility] HospitalVidgmgwNZVVGVORQG8250-79-10 09:47:00 Test Item Value Reference Range Interpretation Comments Hgb (test code = Hgb) 7.0 14.0-18.0 [facility] TomballTatdshyLTHEWYHSGI6520-60-73 09:47:00 Test Item Value Reference Range Interpretation Comments Hct (test code = Hct) 20.5 42.0-54.0 [facility] HospitalApvxcrjECSFYUPTZO8544-09-67 09:47:00 Test Item Value Reference Range Interpretation Comments MCV (test code = MCV) 91.7 80.0-94.0 [facility] HospitalSfebhjmYBSKDWVEOO3363-68-11 09:47:00 Test Item Value Reference Range Interpretation Comments MCH (test code = MCH) 31.2 pg 27.0-31.0 [facility] HospitalPfrtqjaLDYCYDUIIH5594-07-56 09:47:00 Test Item Value Reference Range Interpretation Comments MCHC (test code = MCHC) 34.0 32.0-36.0 [facility] HospitalOvxwxanOIMXHGOHXS7165-21-02 09:47:00 Test Item Value Reference Range Interpretation Comments RDW (test code = RDW) 22.7 11.5-14.5 [facility] HospitalFpohgfqJSFNDXCFKJ7448-97-16 09:47:00 Test Item Value Reference Range Interpretation Comments Platelet (test code = Platelet) 332 243-254 [facility] TomballHvvytmgGHNHSEQBPR0273-21-29 09:47:00 Test Item Value Reference Range Interpretation Comments MPV (test code = MPV) 7.7 7.4-10.4 [facility] CenterBACTERIAL - [id number] 17:10:00 Test Item Value Reference Range Interpretation Comments Source Strep (test code Urine *NA*(01/14/22 = Source Strep) 12:10 PM) [facility] CenterBACTERIAL - [id number] 17:10:00 Test Item Value Reference Range Interpretation Comments Strep pneumoniae Ag Negative (01/14/22 (test code = Strep 12:10 PM) pneumoniae Ag) [facility] - [id number] 17:10:00 Test Item Value Reference Range Interpretation Comments Source Strep (test code Urine *NA*(01/14/22 = Source Strep) 12:10 PM) [facility] CenterBACTERIAL - [id number] 17:10:00 Test Item Value Reference Range Interpretation Comments Strep pneumoniae Ag Negative (01/14/22 (test code = Strep 12:10 PM) pneumoniae Ag) [facility] CenterInfectiousUNC HEALTH JOHNSTON CLAYTONWWUJS3083-82-42 08:01:00 Test Item Value Reference Range Interpretation Comments Glucose Lvl (test code = Glucose Lvl) 130 70-99 [facility] CenterBIBA Apparels [id number] 08:01:00 Test Item Value Reference Range Interpretation Comments BUN (test code = BUN) 10 7-22 [facility] CenterInfectiousUNC [facility]ALTH JOHNSTON CLAYTONWWJEV4716-50-40 08:01:00 Test Item Value Reference Range Interpretation Comments Creatinine Lvl (test code = Creatinine 0.48 0.50-1.40 Lvl) [facility] CenterBIBA Apparels [id number] 08:01:00 Test Item Value Reference Range Interpretation Comments Sodium Lvl (test code = Sodium Lvl) 132 135-145 [facility] CenterBIBA Apparels [id number] 08:01:00 Test Item Value Reference Range Interpretation Comments Potassium Lvl (test code = Potassium 3.8 3.5-5.1 Lvl) [facility] CenterBIBA Appare[facility] [id number] 08:01:00 Test Item Value Reference Range Interpretation Comments Chloride Lvl (test code = Chloride Lvl) 97 95-109 [facility] [id number] 08:01:00 Test Item Value Reference Range Interpretation Comments CO2 (test code = CO2) 28 24-32 [facility]2022-06-16 08:01:00 Test Item Value Reference Range Interpretation Comments Calcium Lvl (test code = Calcium Lvl) 8.4 8.5-10.5 [facility] [id number] 08:01:00 Test Item Value Reference Range Interpretation Comments AGAP (test code = AGAP) 10.8 10.0-20.0 [facility]2022-06-16 08:01:00 Test Item Value Reference Range Interpretation Comments eGFR (test code = eGFR) 156 [facility]ballFgpebwmLJHAUKJNPG3464-91-19 08:01:00 Test Item Value Reference Range Interpretation Comments WBC (test code = WBC) 7.8 3.7-10.4 [facility] TomballQnjmagnBUKCCBUKET7494-12-35 08:01:00 Test Item Value Reference Range Interpretation Comments RBC (test code = RBC) 2.23 4.70-6.10 [facility] TomballMdwhddxIUPTWEKKTW1107-30-51 08:01:00 Test Item Value Reference Range Interpretation Comments Hgb (test code = Hgb) 7.4 14.0-18.0 [facility] TomballZxcrbsgQQKKOVJTPT6742-22-43 08:01:00 Test Item Value Reference Range Interpretation Comments Hct (test code = Hct) 20.5 42.0-54.0 [facility] TomballKbsmtrkWAQEZNOADF5542-90-86 08:01:00 Test Item Value Reference Range Interpretation Comments MCV (test code = MCV) 92.0 80.0-94.0 [facility] TomballEtwnrzjZDKJDSCCNP1910-36-44 08:01:00 Test Item Value Reference Range Interpretation Comments MCH (test code = MCH) 33.2 pg 27.0-31.0 [facility] TomballGuxydpkUAZWLKERLI0079-21-86 08:01:00 Test Item Value Reference Range Interpretation Comments MCHC (test code = MCHC) 36.1 32.0-36.0 [facility] TomballTyckthdSLGSIGVFDO6473-24-78 08:01:00 Test Item Value Reference Range Interpretation Comments RDW (test code = RDW) 21.4 11.5-14.5 [place] 091392-06-16 08:01:00 Test Item Value Reference Range Interpretation Comments Platelet (test code = Platelet) 215 133-450 [facility] TomballSahpsghWSKJWCIDCD6980-34-75 08:01:00 Test Item Value Reference Range Interpretation Comments MPV (test code = MPV) 7.9 7.4-10.4 [place] 091392-06-16 08:01:00 Test Item Value Reference Range Interpretation Comments RBC Morph (test code = See Note (01/14/22 3:01 RBC Morph) AM) [facility] TomballAitvrkhKKBMBEGJUD9770-39-60 08:01:00 Test Item Value Reference Range Interpretation Comments Plt Morph (test code = Normal (01/14/22 3:01 Plt Morph) AM) [facility] TomballAdtunkjAACILYHCUE6960-66-80 08:01:00 Test Item Value Reference Range Interpretation Comments Anisocyte (test code = 1+ *ABN*(01/14/22 Anisocyte) 3:01 AM) [facility] TomballCtfomtqLEZZYMMXIV0408-00-74 08:01:00 Test Item Value Reference Range Interpretation Comments Macrocyte (test code = 1+ *ABN*(01/14/22 Macrocyte) 3:01 AM) [facility] TomballOxcxpyrUYERSFDNEB2040-95-25 08:01:00 Test Item Value Reference Range Interpretation Comments Microcyte (test code = 1+ *ABN*(01/14/22 Microcyte) 3:01 AM) [facility] TomballSvtuceqLEPSVATPVS3953-66-69 08:01:00 Test Item Value Reference Range Interpretation Comments Polychrom (test code = Moderate *ABN*(01/14/22 Polychrom) 3:01 AM) [facility] TomballWurfnjsNDSMDAVXFX3805-56-77 08:01:00 Test Item Value Reference Range Interpretation Comments Target Cell (test code Moderate *ABN*(01/14/22 = Target Cell) 3:01 AM) [facility] TomballFdkliwvDYNHXNWQHI5915-71-36 08:01:00 Test Item Value Reference Range Interpretation Comments Schistocyte (test code = 1-3 per HPF Schistocyte) (01/14/22 3:01 AM) [facility] TomballWnirymyENNCYOQVJR1023-69-16 08:01:00 Test Item Value Reference Range Interpretation Comments Spherocyte (test code = Occasional Spherocyte) *ABN*(01/14/22 3:01 AM) [facility] TomballWycxxbwBQEUGFWZUN8380-46-66 08:01:00 Test Item Value Reference Range Interpretation Comments Sickle Cell (test code Moderate *ABN*(01/14/22 = Sickle Cell) 3:01 AM) [facility] TomballOyrcozcADDRGTBNEZ6572-77-13 08:01:00 Test Item Value Reference Range Interpretation Comments Segs (test code = Segs) 77.1 45.0-75.0 [facility] TomballKbfemzkSJUVOQTGSL0384-21-63 08:01:00 Test Item Value Reference Range Interpretation Comments Lymphocytes (test code = Lymphocytes) 9.8 20.0-40.0 [facility] TomballHaiqqpeOLVHLIUMQO5333-96-27 08:01:00 Test Item Value Reference Range Interpretation Comments Monocytes (test code = Monocytes) 11.2 2.0-12.0 [facility] TomballZvlxzdlCUOIGUPSVH5364-98-07 08:01:00 Test Item Value Reference Range Interpretation Comments Eosinophils (test code = 1.1 See_Comment [A utomated message] The Eosinophils) system which ge nerated this result tra nsmitted reference range : <=4.0. The reference r duy was not used to int erpret this result as normal/abnormal . [facility] TomballHsghcvsDOLSHYYWMG2231-01-43 08:01:00 Test Item Value Reference Range Interpretation Comments Basophils (test code = 0.8 See_Comment [Aut omated message] The Basophils) system which ge nerated this result tra nsmitted reference range : <=1.0. The reference r duy was not used to int erpret this result as normal/abnormal . [facility] TomballQxnoeuoMBKENSXYVV9087-24-28 08:01:00 Test Item Value Reference Range Interpretation Comments Neutrophils # (test code = Neutrophils 6.0 1.5-8.1 #) [facility] TomballEhatlevEVLKVBUPWU0657-09-76 08:01:00 Test Item Value Reference Range Interpretation Comments Lymphocytes # (test code = Lymphocytes 0.8 1.0-5.5 #) [facility] TomballQlilpzaMVBDKUPUIV1161-99-60 08:01:00 Test Item Value Reference Range Interpretation Comments Monocytes # (test code 0.9 See_Comment [Aut omated message] The = Monocytes #) system which generated this result tra nsmitted reference range : <=0.8. The reference r duy was not used to int erpret this result as normal/abnormal . [facility] TomballVyhbuptEIFBRRIOMA2800-77-86 08:01:00 Test Item Value Reference Range Interpretation Comments Basophils # (test code 0.1 See_Comment [Aut omated message] The = Basophils #) system which generated this result tra nsmitted reference range : <=0.2. The reference r duy was not used to int erpret this result as normal/abnormal . [facility] 3dim [id number] 08:01:00 Test Item Value Reference Range Interpretation Comments Glucose Lvl (test code = Glucose Lvl) 130 70-99 [place] 105882-06-16 08:01:00 Test Item Value Reference Range Interpretation Comments BUN (test code = BUN) 10 7-22 [place] 105882-06-16 08:01:00 Test Item Value Reference Range Interpretation Comments Creatinine Lvl (test code = Creatinine 0.48 0.50-1.40 Lvl) [place] 105882-06-16 08:01:00 Test Item Value Reference Range Interpretation Comments Sodium Lvl (test code = Sodium Lvl) 132 135-145 [place] 105882-06-16 08:01:00 Test Item Value Reference Range Interpretation Comments Potassium Lvl (test code = Potassium 3.8 3.5-5.1 Lvl) [place] 105882-06-16 08:01:00 Test Item Value Reference Range Interpretation Comments Chloride Lvl (test code = Chloride Lvl) 97 95-109 [place] 105882-06-16 08:01:00 Test Item Value Reference Range Interpretation Comments CO2 (test code = CO2) 28 24-32 [place] 105882-06-16 08:01:00 Test Item Value Reference Range Interpretation Comments Calcium Lvl (test code = Calcium Lvl) 8.4 8.5-10.5 [place] 105882-06-16 08:01:00 Test Item Value Reference Range Interpretation Comments AGAP (test code = AGAP) 10.8 10.0-20.0 [place] 105882-06-16 08:01:00 Test Item Value Reference Range Interpretation Comments eGFR (test code = eGFR) 156 [place] 091392-06-16 08:01:00 Test Item Value Reference Range Interpretation Comments WBC (test code = WBC) 7.8 3.7-10.4 [place] [address]-06-16 08:01:00 Test Item Value Reference Range Interpretation Comments RBC (test code = RBC) 2.23 4.70-6.10 [place] [address]-06-16 08:01:00 Test Item Value Reference Range Interpretation Comments Hgb (test code = Hgb) 7.4 14.0-18.0 [place] [address]-06-16 08:01:00 Test Item Value Reference Range Interpretation Comments Hct (test code = Hct) 20.5 42.0-54.0 [facility] TomballHpvtjdaUWWEGWOPXK5617-94-00 08:01:00 Test Item Value Reference Range Interpretation Comments MCV (test code = MCV) 92.0 80.0-94.0 [facility] TomballTmeehixYYEAYQNTZV6059-61-71 08:01:00 Test Item Value Reference Range Interpretation Comments MCH (test code = MCH) 33.2 pg 27.0-31.0 [facility] TomballRonfovwXVGBVTGLXK0251-77-81 08:01:00 Test Item Value Reference Range Interpretation Comments MCHC (test code = MCHC) 36.1 32.0-36.0 [facility] TomballGxwmaxgQMNDPDNVWZ0934-97-57 08:01:00 Test Item Value Reference Range Interpretation Comments RDW (test code = RDW) 21.4 11.5-14.5 [facility] TomballXcwxuviRRIHUQQGZK5144-00-73 08:01:00 Test Item Value Reference Range Interpretation Comments Platelet (test code = Platelet) 215 133-450 [facility] TomballYainjirWDJGPZMTAH9325-35-32 08:01:00 Test Item Value Reference Range Interpretation Comments MPV (test code = MPV) 7.9 7.4-10.4 [facility] TomballQvqrqtaHMQZQZUHMN7878-30-27 08:01:00 Test Item Value Reference Range Interpretation Comments RBC Morph (test code = See Note (01/14/22 3:01 RBC Morph) AM) [facility] TomballNsessdrOLIMWHAHUX5690-45-90 08:01:00 Test Item Value Reference Range Interpretation Comments Plt Morph (test code = Normal (01/14/22 3:01 Plt Morph) AM) [facility] TomballBxvtdfjNORRCWJYDY7767-84-21 08:01:00 Test Item Value Reference Range Interpretation Comments Anisocyte (test code = 1+ *ABN*(01/14/22 Anisocyte) 3:01 AM) [facility] TomballZytzxcaEIOFHDPVQK4423-51-51 08:01:00 Test Item Value Reference Range Interpretation Comments Macrocyte (test code = 1+ *ABN*(01/14/22 Macrocyte) 3:01 AM) [facility] TomballBfoafrtUSUQPXOBCM1753-66-78 08:01:00 Test Item Value Reference Range Interpretation Comments Microcyte (test code = 1+ *ABN*(01/14/22 Microcyte) 3:01 AM) [facility] TomballTeceyptBDJOFVRKDV9614-02-94 08:01:00 Test Item Value Reference Range Interpretation Comments Polychrom (test code = Moderate *ABN*(01/14/22 Polychrom) 3:01 AM) [place] 091392-06-16 08:01:00 Test Item Value Reference Range Interpretation Comments Target Cell (test code Moderate *ABN*(01/14/22 = Target Cell) 3:01 AM) [facility] TomballAdehgvuMQYTCYGFIW8942-69-38 08:01:00 Test Item Value Reference Range Interpretation Comments Schistocyte (test code = 1-3 per HPF Schistocyte) (01/14/22 3:01 AM) [place] 091392-06-16 08:01:00 Test Item Value Reference Range Interpretation Comments Spherocyte (test code = Occasional Spherocyte) *ABN*(01/14/22 3:01 AM) [place] [address]-06-16 08:01:00 Test Item Value Reference Range Interpretation Comments Sickle Cell (test code Moderate *ABN*(01/14/22 = Sickle Cell) 3:01 AM) [place] 091392-06-16 08:01:00 Test Item Value Reference Range Interpretation Comments Segs (test code = Segs) 77.1 45.0-75.0 [place] 091392-06-16 08:01:00 Test Item Value Reference Range Interpretation Comments Lymphocytes (test code = Lymphocytes) 9.8 20.0-40.0 [place] 091392-06-16 08:01:00 Test Item Value Reference Range Interpretation Comments Monocytes (test code = Monocytes) 11.2 2.0-12.0 [place] 091392-06-16 08:01:00 Test Item Value Reference Range Interpretation Comments Eosinophils (test code = 1.1 See_Comment [A utomated message] The Eosinophils) system which ge nerated this result tra nsmitted reference range : <=4.0. The reference r duy was not used to int erpret this result as normal/abnormal . [place] [address]-06-16 08:01:00 Test Item Value Reference Range Interpretation Comments Basophils (test code = 0.8 See_Comment [Aut omated message] The Basophils) system which ge nerated this result tra nsmitted reference range : <=1.0. The reference r duy was not used to int erpret this result as normal/abnormal . [facility] TomballBanrodhOJVOOPOHMY6166-12-33 08:01:00 Test Item Value Reference Range Interpretation Comments Neutrophils # (test code = Neutrophils 6.0 1.5-8.1 #) [facility] TomballNovssgmRSZVHJFLKA4741-89-97 08:01:00 Test Item Value Reference Range Interpretation Comments Lymphocytes # (test code = Lymphocytes 0.8 1.0-5.5 #) [facility] TomballTpubeliNHVWAPBHLQ0957-60-64 08:01:00 Test Item Value Reference Range Interpretation Comments Monocytes # (test code 0.9 See_Comment [Aut omated message] The = Monocytes #) system which generated this result tra nsmitted reference range : <=0.8. The reference r duy was not used to int erpret this result as normal/abnormal . [facility] TomballNcauhmeORKDKDFWZQ9457-88-14 08:01:00 Test Item Value Reference Range Interpretation Comments Basophils # (test code 0.1 See_Comment [Aut omated message] The = Basophils #) system which generated this result tra nsmitted reference range : <=0.2. The reference r duy was not used to int erpret this result as normal/abnormal . [facility] [id number] 16:49:00 Test Item Value Reference Range Interpretation Comments MRSA by PCR (test Negative (01/13/22 11:49 code = MRSA by PCR) AM) [facility] CenterMOLE[facility] [id number] 16:49:00 Test Item Value Reference Range Interpretation Comments Source Respiratory Nasophrngl Swb Panel PCR (test code = *NA*(01/13/22 11:49 AM) Source Respiratory Panel PCR) [facility] [id number] 16:49:00 Test Item Value Reference Range Interpretation Comments Influenza A PCR (test Negative *NA*(01/13/22 code = Influenza A PCR) 11:49 AM) [facility] JKWPYHRBVE5685-44-40 16:49:00 Test Item Value Reference Range Interpretation Comments Influenza B PCR (test Negative *NA*(01/13/22 code = Influenza B PCR) 11:49 AM) [facility] [id number] 16:49:00 Test Item Value Reference Range Interpretation Comments RSV PCR (test code = Negative *NA*(01/13/22 RSV PCR) 11:49 AM) [facility] - [id number] 16:49:00 Test Item Value Reference Range Interpretation Comments MRSA by PCR (test Negative (01/13/22 11:49 code = MRSA by PCR) AM) [facility] KKSMYBESMY2821-73-09 16:49:00 Test Item Value Reference Range Interpretation Comments Source Respiratory Nasophrngl Swb Panel PCR (test code = *NA*(01/13/22 11:49 AM) Source Respiratory Panel PCR) [facility] [id number] 16:49:00 Test Item Value Reference Range Interpretation Comments Influenza A PCR (test Negative *NA*(01/13/22 code = Influenza A PCR) 11:49 AM) [facility] GJBTSCRUOJ9157-04-71 16:49:00 Test Item Value Reference Range Interpretation Comments Influenza B PCR (test Negative *NA*(01/13/22 code = Influenza B PCR) 11:49 AM) [facility] [id number] 16:49:00 Test Item Value Reference Range Interpretation Comments RSV PCR (test code = Negative *NA*(01/13/22 RSV PCR) 11:49 AM) [facility] TomballGoltfzwNHBZAIHQGQ8970-08-40 07:59:00 Test Item Value Reference Range Interpretation Comments Basophils (test code = 1.0 See_Comment [Aut omated message] The Basophils) system which ge nerated this result tra nsmitted reference range : <=1.0. The reference r duy was not used to int erpret this result as normal/abnormal . [facility] TomballPyjayiuWKUFXIJRBS5567-77-18 07:59:00 Test Item Value Reference Range Interpretation Comments Eosinophils # (test code 0.1 See_Comment [A utomated message] The = Eosinophils #) system whic h generated this result tra nsmitted reference range : <=0.5. The reference r duy was not used to int erpret this result as normal/abnormal . [facility] TomballEdtjttcGXVMCRYHPQ0175-65-07 07:59:00 Test Item Value Reference Range Interpretation Comments Basophils # (test code 0.1 See_Comment [Aut omated message] The = Basophils #) system which generated this result tra nsmitted reference range : <=0.2. The reference r duy was not used to int erpret this result as normal/abnormal . [place] 091392-06-15 07:59:00 Test Item Value Reference Range Interpretation Comments Basophils (test code = 1.0 See_Comment [Aut omated message] The Basophils) system which ge nerated this result tra nsmitted reference range : <=1.0. The reference r duy was not used to int erpret this result as normal/abnormal . [place] 091392-06-15 07:59:00 Test Item Value Reference Range Interpretation Comments Eosinophils # (test code 0.1 See_Comment [A utomated message] The = Eosinophils #) system [facility] h generated this result tra nsmitted reference range : <=0.5. The reference r duy was not used to int erpret this result as normal/abnormal . [place] 091392-06-15 07:59:00 Test Item Value Reference Range Interpretation Comments Basophils # (test code 0.1 See_Comment [Aut omated message] The = Basophils #) system which generated this result tra nsmitted reference range : <=0.2. The reference r duy was not used to int erpret this result as normal/abnormal . [facility] 3dim [id number] 19:04:00 Test Item Value Reference Range Interpretation Comments Procalcitonin Lvl (test 0.32 See_Comment [Au tomated message] code = Procalcitonin Lvl) Th e system which generated this result transmitted ref erence range: <=0.10. The reference range was not used to interpr et this result as normal/abnormal . [facility] [id number] 19:04:00 Test Item Value Reference Range Interpretation Comments Lactic Acid Lvl (test code = Lactic 1.7 0.5-2.2 Acid Lvl) [facility] [id number] 19:04:00 Test Item Value Reference Range Interpretation Comments Procalcitonin Lvl (test 0.32 See_Comment [Au tomated message] code = Procalcitonin Lvl) Th e system which generated this result transmitted ref erence range: <=0.10. The reference range was not used to interpr et this result as normal/abnormal . [facility] [id number] 19:04:00 Test Item Value Reference Range Interpretation Comments Lactic Acid Lvl (test code = Lactic 1.7 0.5-2.2 Acid Lvl) [place] 105882-06-14 08:00:00 Test Item Value Reference Range Interpretation Comments Total Protein (test code = Total 7.0 6.4-8.4 Protein) [place] 105882-06-14 08:00:00 Test Item Value Reference Range Interpretation Comments Albumin Lvl (test code = Albumin Lvl) 3.6 3.5-5.0 [place] 105882-06-14 08:00:00 Test Item Value Reference Range Interpretation Comments ALT (test code = ALT) 42 See_Comment [Auto mated message] The system which ge nerated this result transmit aisha reference range : <=65. The reference range was not used to interpr et this result as erin l/abnormal. [place] 105882-06-14 08:00:00 Test Item Value Reference Range Interpretation Comments AST (test code = AST) 91 See_Comment [Auto mated message] The system which ge nerated this result transmit aisha reference range : <=37. The reference range was not used to interpr et this result as erin l/abnormal. [place] 105882-06-14 08:00:00 Test Item Value Reference Range Interpretation Comments Alk Phos (test code = Alk Phos) 132 39-136 [place] 105882-06-14 08:00:00 Test Item Value Reference Range Interpretation Comments Bili Total (test code = Bili Total) 5.2 0.2-1.3 [place] 105882-06-14 08:00:00 Test Item Value Reference Range Interpretation Comments B/C Ratio (test code = B/C Ratio) 12 1 6-25 [place] [address]-06-14 08:00:00 Test Item Value Reference Range Interpretation Comments Globulin (test code = Globulin) 3.4 2.7-4.2 [place] 105882-06-14 08:00:00 Test Item Value Reference Range Interpretation Comments A/G Ratio (test code = A/G Ratio) 1.1 1 0.7-1.6 [place] 091392-06-14 08:00:00 Test Item Value Reference Range Interpretation Comments Bands (test code = 1.0 See_Comment [Automat ed message] The Bands) system which ge nerated this result transmit aisha reference range : <=11.0. The reference r duy was not used to interpr et this result as erin l/abnormal. [facility] TomballGbgnlqmBYEVONAYTB1110-50-37 08:00:00 Test Item Value Reference Range Interpretation Comments Atypical Lymphs (test code = Atypical 0.0 Lymphs) [facility] TomballOrplnqdIMRQYYWVPV8256-28-69 08:00:00 Test Item Value Reference Range Interpretation Comments NRBC (test code = NRBC) 15 [facility] TomballPamiobkDZTSNNIPAX0078-62-66 08:00:00 Test Item Value Reference Range Interpretation Comments RBC Morph (test code = See Note (01/12/22 3:00 RBC Morph) AM) [facility] TomballSgbzmyqOOYBBJSALR5326-34-41 08:00:00 Test Item Value Reference Range Interpretation Comments Plt Morph (test code = Normal (01/12/22 3:00 Plt Morph) AM) [facility] TomballRqnoavfLOKRESATVR4171-81-00 08:00:00 Test Item Value Reference Range Interpretation Comments Tot Cell Ct (test code = Tot Cell Ct) 100 1 [facility] CenterGjicsehPSGNCUHCLY1172-46-79 08:00:00 Test Item Value Reference Range Interpretation Comments Baso Stipplin (test Moderate *ABN*(01/12/22 code = Baso Stipplin) 3:00 AM) [facility] CenterB[facility] [id number] 08:00:00 Test Item Value Reference Range Interpretation Comments Total Protein (test code = Total 7.0 6.4-8.4 Protein) [facility] [id number] 08:00:00 Test Item Value Reference Range Interpretation Comments Albumin Lvl (test code = Albumin Lvl) 3.6 3.5-5.0 [facility] [id number] 08:00:00 Test Item Value Reference Range Interpretation Comments ALT (test code = ALT) 42 See_Comment [Auto mated message] The system which ge nerated this result transmit aisha reference range : <=65. The reference range was not used to interpr et this result as erin l/abnormal. [facility] [id number] 08:00:00 Test Item Value Reference Range Interpretation Comments AST (test code = AST) 91 See_Comment [Auto mated message] The system which ge nerated this result transmit aisha reference range : <=37. The reference range was not used to interpr et this result as erin l/abnormal. [facility] [id number] 08:00:00 Test Item Value Reference Range Interpretation Comments Alk Phos (test code = Alk Phos) 132 39-136 [facility] CenterInfectiousSAMUEL VILLE [id number] 08:00:00 Test Item Value Reference Range Interpretation Comments Bili Total (test code = Bili Total) 5.2 0.2-1.3 [facility] [id number] 08:00:00 Test Item Value Reference Range Interpretation Comments B/C Ratio (test code = B/C Ratio) 12 1 6-25 [facility] [id number] 08:00:00 Test Item Value Reference Range Interpretation Comments Globulin (test code = Globulin) 3.4 2.7-4.2 [facility] CenterB[facility] [id number] 08:00:00 Test Item Value Reference Range Interpretation Comments A/G Ratio (test code = A/G Ratio) 1.1 1 0.7-1.6 [facility] C[id number] 08:00:00 Test Item Value Reference Range Interpretation Comments Bands (test code = 1.0 See_Comment [Automat ed message] The Bands) system which ge nerated this result transmit aisha reference range : <=11.0. The reference r duy was not used to interpr et this result as erin l/abnormal. [facility] TomballLfuvkjsMOVJRHHJSL4910-08-82 08:00:00 Test Item Value Reference Range Interpretation Comments Atypical Lymphs (test code = Atypical 0.0 Lymphs) [facility] TomballEhvyvseZODZUQXKRK5967-31-86 08:00:00 Test Item Value Reference Range Interpretation Comments NRBC (test code = NRBC) 15 [facility]XjuhmhwZRSUQKKDZI2234-09-42 08:00:00 Test Item Value Reference Range Interpretation Comments RBC Morph (test code = See Note (01/12/22 3:00 RBC Morph) AM) [facility]ballDqqzfyxPZKYFYMIVJ8646-48-36 08:00:00 Test Item Value Reference Range Interpretation Comments Plt Morph (test code = Normal (01/12/22 3:00 Plt Morph) AM) [facility]ballXijurnzCZEDYAZBWK2142-03-90 08:00:00 Test Item Value Reference Range Interpretation Comments Tot Cell Ct (test code = Tot Cell Ct) 100 1 [facility]30 08:00:00 Test Item Value Reference Range Interpretation Comments Baso Stipplin (test Moderate *ABN*(01/12/22 code = Baso Stipplin) 3:00 AM) [facility]wdONWWZEVLRD1036-79-82 09:54:00 Test Item Value Reference Range Interpretation Comments Coronavirus (COVID-19) Not Detected (01/11/22 ALESSIO (test code = 4:54 AM) Coronavirus (COVID-19) ALESSIO) [facility] CenterZhvogtfZRHRKSTWUZ4901-82-74 09:54:00 Test Item Value Reference Range Interpretation Comments Coronavirus (COVID-19) Not Detected (01/11/22 ALESSIO (test code = 4:54 AM) Coronavirus (COVID-19) ALESSIO) [facility] CenterCARDIAC [id number] 07:45:00 Test Item Value Reference Range Interpretation Comments HS Troponin I (test code = HS Troponin 5 I) [facility] [id number] 07:45:00 Test Item Value Reference Range Interpretation Comments B/C Ratio (test code = B/C Ratio) 11 1 6-25 [facility] [id number] 07:45:00 Test Item Value Reference Range Interpretation Comments Total Protein (test code = Total 7.9 6.4-8.4 Protein) [facility] [id number] 07:45:00 Test Item Value Reference Range Interpretation Comments Albumin Lvl (test code = Albumin Lvl) 4.3 3.5-5.0 [facility] [id number] 07:45:00 Test Item Value Reference Range Interpretation Comments Globulin (test code = Globulin) 3.6 2.7-4.2 [facility] [id number] 07:45:00 Test Item Value Reference Range Interpretation Comments A/G Ratio (test code = A/G Ratio) 1.2 1 0.7-1.6 [facility] [id number] 07:45:00 Test Item Value Reference Range Interpretation Comments ALT (test code = ALT) 41 See_Comment [Auto mated message] The system which ge nerated this result transmit aisha reference range : <=65. The reference range was not used to interpr et this result as erin l/abnormal. [facility] [id number] 07:45:00 Test Item Value Reference Range Interpretation Comments AST (test code = AST) 99 See_Comment [Auto mated message] The system which ge nerated this result transmit aisha reference range : <=37. The reference range was not used to interpr et this result as erin l/abnormal. [facility] [id number] 07:45:00 Test Item Value Reference Range Interpretation Comments Alk Phos (test code = Alk Phos) 114 39-136 [facility]ballIdxiurgGTYDTHZUUD4364-45-15 07:45:00 Test Item Value Reference Range Interpretation Comments Bands (test code = 1.0 See_Comment [Automat ed message] The Bands) system which ge nerated this result transmit aisha reference range : <=11.0. The reference r duy was not used to interpr et this result as erin l/abnormal. [facility] TomballBsjrwkzCPXOTZLAFU9537-50-06 07:45:00 Test Item Value Reference Range Interpretation Comments Atypical Lymphs (test code = Atypical 0.0 Lymphs) [place] 091392-06-13 07:45:00 Test Item Value Reference Range Interpretation Comments Retic Perf (test code = Yes (01/11/22 2:45 AM) Retic Perf) [facility]ballGxwjeaoUQQCOPSZZG9506-85-11 07:45:00 Test Item Value Reference Range Interpretation Comments Retic Auto (test code = Retic Auto) 10.2 0.5-1.5 [facility] RXFANYZ2846-78-26 07:45:00 Test Item Value Reference Range Interpretation Comments HS Troponin I (test code = HS Troponin 5 I) [facility]2022-06-13 07:45:00 Test Item Value Reference Range Interpretation Comments B/C Ratio (test code = B/C Ratio) 11 1 6-25 [place] 105882-06-13 07:45:00 Test Item Value Reference Range Interpretation Comments Total Protein (test code = Total 7.9 6.4-8.4 Protein) [place] 105882-06-13 07:45:00 Test Item Value Reference Range Interpretation Comments Albumin Lvl (test code = Albumin Lvl) 4.3 3.5-5.[address]06-13 07:45:00 Test Item Value Reference Range Interpretation Comments Globulin (test code = Globulin) 3.6 2.7-4.2 [place] [address]-06-13 07:45:00 Test Item Value Reference Range Interpretation Comments A/G Ratio (test code = A/G Ratio) 1.2 1 0.7-1.[address]06-13 07:45:00 Test Item Value Reference Range Interpretation Comments ALT (test code = ALT) 41 See_Comment [Auto mated message] The system which ge nerated this result transmit aisha reference range : <=65. The reference range was not used to interpr et this result as erin l/abnormal. [address]06-13 07:45:00 Test Item Value Reference Range Interpretation Comments AST (test code = AST) 99 See_Comment [Auto mated message] The system which ge nerated this result transmit aisha reference range : <=37. The reference range was not used to interpr et this result as erin l/abnormal. [place] [address]-06-13 07:45:00 Test Item Value Reference Range Interpretation Comments Alk Phos (test code = Alk Phos) 114 39-136 [place] [address]-06-13 07:45:00 Test Item Value Reference Range Interpretation Comments Bands (test code = 1.0 See_Comment [Automat ed message] The Bands) system which ge nerated this result transmit aisha reference range : <=11.0. The reference r duy was not used to interpr et this result as erin l/abnormal. [place] 091392-06-13 07:45:00 Test Item Value Reference Range Interpretation Comments Atypical Lymphs (test code = Atypical 0.0 Lymphs) [place] [address]-06-13 07:45:00 Test Item Value Reference Range Interpretation Comments Retic Perf (test code = Yes (01/11/22 2:45 AM) Retic Perf) [place] [address]-06-13 07:45:00 Test Item Value Reference Range Interpretation Comments Retic Auto (test code = Retic Auto) 10.2 0.5-1.5 [place] [address]-06-12 13:20:00 Test Item Value Reference Range Interpretation Comments Glucose Lvl (test code = Glucose Lvl) 116 70-99 [place] 105882-06-12 13:20:00 Test Item Value Reference Range Interpretation Comments BUN (test code = BUN) 8 7-22 [place] 105882-06-12 13:20:00 Test Item Value Reference Range Interpretation Comments Creatinine Lvl (test code = Creatinine 0.65 0.50-1.40 Lvl) [place] 105882-06-12 13:20:00 Test Item Value Reference Range Interpretation Comments Sodium Lvl (test code = Sodium Lvl) 138 135-145 [place] 105882-06-12 13:20:00 Test Item Value Reference Range Interpretation Comments Potassium Lvl (test code = Potassium 3.9 3.5-5.1 Lvl) [place] 105882-06-12 13:20:00 Test Item Value Reference Range Interpretation Comments Chloride Lvl (test code = Chloride Lvl) 105 95-109 [place] 105882-06-12 13:20:00 Test Item Value Reference Range Interpretation Comments CO2 (test code = CO2) 27 24-32 [place] 105882-06-12 13:20:00 Test Item Value Reference Range Interpretation Comments Calcium Lvl (test code = Calcium Lvl) 8.8 8.5-10.5 [place] 105882-06-12 13:20:00 Test Item Value Reference Range Interpretation Comments Total Protein (test code = Total 7.6 6.4-8.4 Protein) [place] 105882-06-12 13:20:00 Test Item Value Reference Range Interpretation Comments Albumin Lvl (test code = Albumin Lvl) 4.2 3.5-5.0 [place] 105882-06-12 13:20:00 Test Item Value Reference Range Interpretation Comments ALT (test code = ALT) 26 See_Comment [Auto mated message] The system which ge nerated this result transmit aisha reference range : <=65. The reference range was not used to interpr et this result as erin l/abnormal. [place] 105882-06-12 13:20:00 Test Item Value Reference Range Interpretation Comments AST (test code = AST) 38 See_Comment [Auto mated message] The system which ge nerated this result transmit aisha reference range : <=37. The reference range was not used to interpr et this result as erin l/abnormal. [place] 105882-06-12 13:20:00 Test Item Value Reference Range Interpretation Comments Alk Phos (test code = Alk Phos) 108 39-136 [place] 105882-06-12 13:20:00 Test Item Value Reference Range Interpretation Comments Bili Total (test code = Bili Total) 3.8 0.2-1.3 [place] 105882-06-12 13:20:00 Test Item Value Reference Range Interpretation Comments AGAP (test code = AGAP) 9.9 10.0-20.0 [place] 105882-06-12 13:20:00 Test Item Value Reference Range Interpretation Comments B/C Ratio (test code = B/C Ratio) 12 1 6-25 [place] [address]-06-12 13:20:00 Test Item Value Reference Range Interpretation Comments Globulin (test code = Globulin) 3.4 2.7-4.2 [place] 105882-06-12 13:20:00 Test Item Value Reference Range Interpretation Comments A/G Ratio (test code = A/G Ratio) 1.2 1 0.7-1.6 [place] [address]-06-12 13:20:00 Test Item Value Reference Range Interpretation Comments eGFR (test code = eGFR) 138 [place] 091392-06-12 13:20:00 Test Item Value Reference Range Interpretation Comments WBC (test code = WBC) 8.1 3.7-10.4 [place] [address]-06-12 13:20:00 Test Item Value Reference Range Interpretation Comments RBC (test code = RBC) 2.79 4.70-6.10 [place] [address]-06-12 13:20:00 Test Item Value Reference Range Interpretation Comments Hgb (test code = Hgb) 9.6 14.0-18.0 [place] [address]-06-12 13:20:00 Test Item Value Reference Range Interpretation Comments Hct (test code = Hct) 25.9 42.0-54.0 [place] [address]-06-12 13:20:00 Test Item Value Reference Range Interpretation Comments MCV (test code = MCV) 92.9 80.0-94.0 [place] 091392-06-12 13:20:00 Test Item Value Reference Range Interpretation Comments MCH (test code = MCH) 34.2 pg 27.0-31.0 [facility]ballWiqlemwUQTGMRIIOG9417-49-18 13:20:00 Test Item Value Reference Range Interpretation Comments MCHC (test code = MCHC) 36.8 32.0-36.0 [facility] TomballPrqrzfvITOCVYJVCV0631-03-16 13:20:00 Test Item Value Reference Range Interpretation Comments RDW (test code = RDW) 23.7 11.5-14.5 [place] 091392-06-12 13:20:00 Test Item Value Reference Range Interpretation Comments Platelet (test code = Platelet) 331 133-450 [facility] TomballKrieponZHIXXLABVR5972-57-47 13:20:00 Test Item Value Reference Range Interpretation Comments MPV (test code = MPV) 7.2 7.4-10.4 [facility] TomballIasmhbiJCYNBSLHNQ0155-93-34 13:20:00 Test Item Value Reference Range Interpretation Comments Retic Perf (test code = Yes (01/10/22 8:20 AM) Retic Perf) [facility]ballHpqnivcVHNMCOUEQN6324-46-52 13:20:00 Test Item Value Reference Range Interpretation Comments Retic Auto (test code = Retic Auto) 10.0 0.5-1.5 [facility] TomballQidibbpGUIRYSKXRY5467-73-44 13:20:00 Test Item Value Reference Range Interpretation Comments RBC Morph (test code = See Note (01/10/22 8:20 RBC Morph) AM) [facility] TomballDgfihkyXQGHEOJSAE1071-19-25 13:20:00 Test Item Value Reference Range Interpretation Comments Plt Morph (test code = Normal (01/10/22 8:20 Plt Morph) AM) [facility] TomballCsxkgywRJBVEPOIFI8999-03-89 13:20:00 Test Item Value Reference Range Interpretation Comments Segs (test code = Segs) 61.0 45.0-75.0 [place] 091392-06-12 13:20:00 Test Item Value Reference Range Interpretation Comments Bands (test code = 2.0 See_Comment [Automat ed message] The Bands) system which ge nerated this result transmit aisha reference range : <=11.0. The reference r duy was not used to interpr et this result as erin l/abnormal. [place] 091392-06-12 13:20:00 Test Item Value Reference Range Interpretation Comments Lymphocytes (test code = Lymphocytes) 25.0 20.0-40.0 [place] [address]-06-12 13:20:00 Test Item Value Reference Range Interpretation Comments Monocytes (test code = Monocytes) 10.0 2.0-12.0 [place] [address]-06-12 13:20:00 Test Item Value Reference Range Interpretation Comments Eosinophils (test code = 2.0 See_Comment [A utomated message] The Eosinophils) system which ge nerated this result tra nsmitted reference range : <=4.0. The reference r duy was not used to int erpret this result as normal/abnormal . [place] [address]-06-12 13:20:00 Test Item Value Reference Range Interpretation Comments Neutrophils # (test code = Neutrophils 5.1 1.5-8.1 #) [place] 091392-06-12 13:20:00 Test Item Value Reference Range Interpretation Comments Lymphocytes # (test code = Lymphocytes 2.0 1.0-5.5 #) [place] 091392-06-12 13:20:00 Test Item Value Reference Range Interpretation Comments Monocytes # (test code 0.8 See_Comment [Aut omated message] The = Monocytes #) system which generated this result tra nsmitted reference range : <=0.8. The reference r duy was not used to int erpret this result as normal/abnormal . [place] 091392-06-12 13:20:00 Test Item Value Reference Range Interpretation Comments Eosinophils # (test code 0.2 See_Comment [A utomated message] The = Eosinophils #) system whic h generated this result tra nsmitted reference range : <=0.5. The reference r duy was not used to int erpret this result as normal/abnormal . [place] 091392-06-12 13:20:00 Test Item Value Reference Range Interpretation Comments NRBC (test code = NRBC) 6 [place] 091392-06-12 13:20:00 Test Item Value Reference Range Interpretation Comments Anisocyte (test code = 1+ *ABN*(6/12/22 Anisocyte) 8:20 AM) [facility]ballMosopesVAULBRGGCN3915-00-68 13:20:00 Test Item Value Reference Range Interpretation Comments Macrocyte (test code = 1+ *ABN*(01/10/22 Macrocyte) 8:20 AM) [place] 091392-06-12 13:20:00 Test Item Value Reference Range Interpretation Comments Microcyte (test code = 1+ *ABN*(01/10/22 Microcyte) 8:20 AM) [place] 091392-06-12 13:20:00 Test Item Value Reference Range Interpretation Comments Polychrom (test code = Moderate *ABN*(01/10/22 Polychrom) 8:20 AM) [place] 091392-06-12 13:20:00 Test Item Value Reference Range Interpretation Comments Target Cell (test code Moderate *ABN*(01/10/22 = Target Cell) 8:20 AM) [facility]ballIiitmgdZDSZEDNYVE0469-67-50 13:20:00 Test Item Value Reference Range Interpretation Comments Tear Cell (test code Moderate *ABN*(01/10/22 = Tear Cell) 8:20 AM) [facility] TomballJwgiywqYXIQAOXOTF1584-52-25 13:20:00 Test Item Value Reference Range Interpretation Comments Sickle Cell (test code Slight *ABN*(01/10/22 = Sickle Cell) 8:20 AM) [facility]2022-06-12 13:20:00 Test Item Value Reference Range Interpretation Comments Glucose Lvl (test code = Glucose Lvl) 116 70-99 [facility]2022-06-12 13:20:00 Test Item Value Reference Range Interpretation Comments BUN (test code = BUN) 8 7-22 [facility]2022-06-12 13:20:00 Test Item Value Reference Range Interpretation Comments Creatinine Lvl (test code = Creatinine 0.65 0.50-1.40 Lvl) [facility]2022-06-12 13:20:00 Test Item Value Reference Range Interpretation Comments Sodium Lvl (test code = Sodium Lvl) 138 135-145 [facility]2022-06-12 13:20:00 Test Item Value Reference Range Interpretation Comments Potassium Lvl (test code = Potassium 3.9 3.5-5.1 Lvl) [place] 105882-06-12 13:20:00 Test Item Value Reference Range Interpretation Comments Chloride Lvl (test code = Chloride Lvl) 105 95-109 [place] 105882-06-12 13:20:00 Test Item Value Reference Range Interpretation Comments CO2 (test code = CO2) 27 24-32 [place] 105882-06-12 13:20:00 Test Item Value Reference Range Interpretation Comments Calcium Lvl (test code = Calcium Lvl) 8.8 8.5-10.5 [facility] CenterInfectiousSAMUEL VILLE [id number] 13:20:00 Test Item Value Reference Range Interpretation Comments Total Protein (test code = Total 7.6 6.4-8.4 Protein) [place] 105882-06-12 13:20:00 Test Item Value Reference Range Interpretation Comments Albumin Lvl (test code = Albumin Lvl) 4.2 3.5-5.0 [place] 105882-06-12 13:20:00 Test Item Value Reference Range Interpretation Comments ALT (test code = ALT) 26 See_Comment [Auto mated message] The system which ge nerated this result transmit aisha reference range : <=65. The reference range was not used to interpr et this result as erin l/abnormal. [facility] CenterBIBA Apparels [id number] 13:20:00 Test Item Value Reference Range Interpretation Comments AST (test code = AST) 38 See_Comment [Auto mated message] The system which ge nerated this result transmit aisha reference range : <=37. The reference range was not used to interpr et this result as erin l/abnormal. [facility] [id number] 13:20:00 Test Item Value Reference Range Interpretation Comments Alk Phos (test code = Alk Phos) 108 39-136 [place] 105882-06-12 13:20:00 Test Item Value Reference Range Interpretation Comments Bili Total (test code = Bili Total) 3.8 0.2-1.3 [place] 105882-06-12 13:20:00 Test Item Value Reference Range Interpretation Comments AGAP (test code = AGAP) 9.9 10.0-20.0 [facility] CenterBIBA Apparels [id number] 13:20:00 Test Item Value Reference Range Interpretation Comments B/C Ratio (test code = B/C Ratio) 12 1 6-25 [facility]2022-06-12 13:20:00 Test Item Value Reference Range Interpretation Comments Globulin (test code = Globulin) 3.4 2.7-4.2 [facility]2022-06-12 13:20:00 Test Item Value Reference Range Interpretation Comments A/G Ratio (test code = A/G Ratio) 1.2 1 0.7-1.6 [facility]2022-06-12 13:20:00 Test Item Value Reference Range Interpretation Comments eGFR (test code = eGFR) 138 [facility]ballMbatqfnYFXWEWPDPZ5449-24-41 13:20:00 Test Item Value Reference Range Interpretation Comments WBC (test code = WBC) 8.1 3.7-10.4 [facility]ballPzgjwtqHSERENACKO0041-82-31 13:20:00 Test Item Value Reference Range Interpretation Comments RBC (test code = RBC) 2.79 4.70-6.10 [facility] TomballUcllursDNLGSYPDLK4416-61-00 13:20:00 Test Item Value Reference Range Interpretation Comments Hgb (test code = Hgb) 9.6 14.0-18.0 [facility] TomballCieufrbXLWDCGLYPI3016-08-61 13:20:00 Test Item Value Reference Range Interpretation Comments Hct (test code = Hct) 25.9 42.0-54.0 [facility] TomballElnxwelRKKVIASQGQ9716-95-12 13:20:00 Test Item Value Reference Range Interpretation Comments MCV (test code = MCV) 92.9 80.0-94.0 [facility] TomballRhicshbOMBZBWZQRX6812-61-20 13:20:00 Test Item Value Reference Range Interpretation Comments MCH (test code = MCH) 34.2 pg 27.0-31.0 [place] 091392-06-12 13:20:00 Test Item Value Reference Range Interpretation Comments MCHC (test code = MCHC) 36.8 32.0-36.0 [facility] TomballRbbwabuKWEHHLAUQH6213-82-02 13:20:00 Test Item Value Reference Range Interpretation Comments RDW (test code = RDW) 23.7 11.5-14.5 [facility] TomballNnvsvrpCXZDCCUIQL5482-31-73 13:20:00 Test Item Value Reference Range Interpretation Comments Platelet (test code = Platelet) 331 133-450 [facility] TomballRhtqyxgASMJAKSPTK4664-49-96 13:20:00 Test Item Value Reference Range Interpretation Comments MPV (test code = MPV) 7.2 7.4-10.4 [facility] TomballKlrskneRBJQISTMZZ2612-93-18 13:20:00 Test Item Value Reference Range Interpretation Comments Retic Perf (test code = Yes (01/10/22 8:20 AM) Retic Perf) [facility] TomballNrimhvpVGUWNSGFMC5976-83-05 13:20:00 Test Item Value Reference Range Interpretation Comments Retic Auto (test code = Retic Auto) 10.0 0.5-1.5 [place] 091392-06-12 13:20:00 Test Item Value Reference Range Interpretation Comments RBC Morph (test code = See Note (01/10/22 8:20 RBC Morph) AM) [facility] TomballNfixmiaQPQISVGBOP2745-08-10 13:20:00 Test Item Value Reference Range Interpretation Comments Plt Morph (test code = Normal (01/10/22 8:20 Plt Morph) AM) [facility] TomballZobaxqnOKBBSZWAOV4998-04-54 13:20:00 Test Item Value Reference Range Interpretation Comments Segs (test code = Segs) 61.0 45.0-75.0 [facility] TomballMqhjvhwDWBQDSJDJU3939-21-10 13:20:00 Test Item Value Reference Range Interpretation Comments Bands (test code = 2.0 See_Comment [Automat ed message] The Bands) system which ge nerated this result transmit aisha reference range : <=11.0. The reference r duy was not used to interpr et this result as erin l/abnormal. [facility] TomballLcrozksDSWQJVCOER8676-29-25 13:20:00 Test Item Value Reference Range Interpretation Comments Lymphocytes (test code = Lymphocytes) 25.0 20.0-40.0 [place] 091392-06-12 13:20:00 Test Item Value Reference Range Interpretation Comments Monocytes (test code = Monocytes) 10.0 2.0-12.0 [place] 091392-06-12 13:20:00 Test Item Value Reference Range Interpretation Comments Eosinophils (test code = 2.0 See_Comment [A utomated message] The Eosinophils) system which ge nerated this result tra nsmitted reference range : <=4.0. The reference r duy was not used to int erpret this result as normal/abnormal . [place] [address]-06-12 13:20:00 Test Item Value Reference Range Interpretation Comments Neutrophils # (test code = Neutrophils 5.1 1.5-8.1 #) [facility] TomballOpdqhncIBFORTWBTY8324-72-37 13:20:00 Test Item Value Reference Range Interpretation Comments Lymphocytes # (test code = Lymphocytes 2.0 1.0-5.5 #) [facility] TomballXeuxpdqIYNQBEMTXF4670-22-55 13:20:00 Test Item Value Reference Range Interpretation Comments Monocytes # (test code 0.8 See_Comment [Aut omated message] The = Monocytes #) system which generated this result tra nsmitted reference range : <=0.8. The reference r duy was not used to int erpret this result as normal/abnormal . [place] 091392-06-12 13:20:00 Test Item Value Reference Range Interpretation Comments Eosinophils # (test code 0.2 See_Comment [A utomated message] The = Eosinophils #) system whic h generated this result tra nsmitted reference range : <=0.5. The reference r duy was not used to int erpret this result as normal/abnormal . [facility] TomballIlsjpysOPMAMSECNN1645-93-36 13:20:00 Test Item Value Reference Range Interpretation Comments NRBC (test code = NRBC) 6 [facility] TomballDfcudnuEQRHOZCYKK6410-76-99 13:20:00 Test Item Value Reference Range Interpretation Comments Anisocyte (test code = 1+ *ABN*(01/10/22 Anisocyte) 8:20 AM) [facility] TomballTdvlpyyWILUCLXMSI0925-58-40 13:20:00 Test Item Value Reference Range Interpretation Comments Macrocyte (test code = 1+ *ABN*(01/10/22 Macrocyte) 8:20 AM) [place] 091392-06-12 13:20:00 Test Item Value Reference Range Interpretation Comments Microcyte (test code = 1+ *ABN*(01/10/22 Microcyte) 8:20 AM) [place] [address]-06-12 13:20:00 Test Item Value Reference Range Interpretation Comments Polychrom (test code = Moderate *ABN*(01/10/22 Polychrom) 8:20 AM) [place] [address]-06-12 13:20:00 Test Item Value Reference Range Interpretation Comments Target Cell (test code Moderate *ABN*(01/10/22 = Target Cell) 8:20 AM) [facility] TomballCwnevhhCVSPLKCKBW7019-63-21 13:20:00 Test Item Value Reference Range Interpretation Comments Tear Cell (test code Moderate *ABN*(01/10/22 = Tear Cell) 8:20 AM) [facility] TomballYvnfrugZCWOSYJUYC5873-36-98 13:20:00 Test Item Value Reference Range Interpretation Comments Sickle Cell (test code Slight *ABN*(01/10/22 = Sickle Cell) 8:20 AM) [facility]-CoV-2 (COVID-19) RNA [Presence] in Respiratory specimen by ALESSIO with probe jasdgsmcd2265-41-22 00:08:20 Test Item Value Reference Range Interpretation Comments SARS-CoV-2 (COVID-19) RNA Not detected [Presence] in Respiratory specimen by ALESSIO with probe detection (test code = 69006-4) Whether patient is employed in a Unknown healthcare setting (test code = 32931-7) Whether the patient has symptoms Unknown related to condition of interest (test code = 30149-7) Whether the patient was Unknown hospitalized for condition of interest (test code = 94557-7) Whether the patient was admitted Unknown to intensive care unit (ICU) for condition of interest (test code = 99346-7) Whether patient resides in a Unknown congregate care setting (test code = 45522-0) status (test code = Unknown 54137-3) Date and time of symptom onset Unknown (test code = 05160-5) [facility] oftwrda7520-43-56 18:40:00 Test Item Value Reference Range Interpretation Comments Urine culture (test SEE COMMENT Bacteriu sherlyn screen code = 5879009) negative. [facility] ctehiko4727-42-22 18:40:00 Test Item Value Reference Range Interpretation Comments Urine culture (test SEE COMMENT Bacteriu sherlyn screen code = 2218517) negative. [facility] RBC, 1 [id number] 04:15:00 Test Item Value Reference Range Interpretation Comments Product name (test code Red Blood Cells -1, = 25) Leukored Unit number (test code = [id number]) Product code (test code U4659N02 = 3092) Dispense status (test Transfused code = 24) Blood expiration date (test code = 302) Blood type code (test code = 308) Blood type (test code = O POSITIVE 1314) Compatibility (test code Compatible = 6400) [facility] RBC, 1 [id number] 04:15:00 Test Item Value Reference Range Interpretation Comments Product name (test code Red Blood Cells -1, = 25) Leukored Unit number (test code = [id number]) Product code (test code B0940C39 = 3092) Dispense status (test Transfused code = 24) Blood expiration date (test code = 302) Blood type code (test code = 308) Blood type (test code = O POSITIVE 1314) Compatibility (test code Compatible = 6400) [facility] and tbxnac7059-49-99 23:11:00 Test Item Value Reference Range Interpretation Comments ABO grouping (test code = 883-9) O Rh type (test code = 02425-1) POS Antibody screen (gel) (test code = NEG 890-4) [facility] and ghtcha3708-69-54 23:11:00 Test Item Value Reference Range Interpretation Comments ABO grouping (test code = 883-9) O Rh type (test code = 70865-6) POS Antibody screen (gel) (test code = NEG 890-4) [facility] 12 [id number] 04:42:03 Test Item Value Reference Range Interpretation Comments Ventricular rate (test code = 253) Atrial rate (test code = 255) NC interval (test code = 266) QRSD interval (test code = 260) QT interval (test code = 264) QTC interval (test code = 265) P axis 1 (test code = 267) QRS axis 1 (test code = 268) T wave axis (test code = 270) EKG impression (test Sinus rhythm with code = 273) marked sinus arrhythmia-Otherwise normal ECG-In automated comparison with ECG of 09-MAY-2021 15:35,-No significant change was found- [facility] 12 [id number] 04:42:03 Test Item Value Reference Range Interpretation Comments Ventricular rate (test code = 253) Atrial rate (test code = 255) NC interval (test code = 266) QRSD interval (test code = 260) QT interval (test code = 264) QTC interval (test code = 265) P axis 1 (test code = 267) QRS axis 1 (test code = 268) T wave axis (test code = 270) EKG impression (test Sinus rhythm with code = 273) marked sinus arrhythmia-Otherwise normal ECG-In automated comparison with ECG of 09-MAY-2021 15:35,-No significant change was found- [facility] 12 [id number] 04:42:03 Test Item Value Reference Range Interpretation Comments Ventricular rate (test code = 253) Atrial rate (test code = 255) NC interval (test code = 266) QRSD interval (test code = 260) QT interval (test code = 264) QTC interval (test code = 265) P axis 1 (test code = 267) QRS axis 1 (test code = 268) T wave axis (test code = 270) EKG impression (test Sinus rhythm with code = 273) marked sinus arrhythmia-Otherwise normal ECG-In automated comparison with ECG of 09-MAY-2021 15:35,-No significant change was found- [facility] ylmelqs3573-27-33 04:29:40 Test Item Value Reference Range Interpretation Comments Urine culture (test SEE COMMENT Bacteriu sherlyn screen code = 0247964) negative. [facility] [Presence] in Respiratory specimen by ALESSIO with probe dhdaeoyrw8086-54-22 18:52:08 Test Item Value Reference Range Interpretation Comments SARS-CoV-2 (COVID-19) RNA Not detected Not-Detected [Presence] in Respiratory specimen by ALESSIO with probe detection (test code = 70263-4) Whether patient is employed in a healthcare setting (test code = 81814-0) Whether the patient has symptoms related to condition of interest (test code = 91123-5) Patient was hospitalized because of this condition (test code = 76504-9) Whether the patient was admitted to intensive care unit (ICU) for condition of interest (test code = 17988-2) Whether patient resides in a congregate care setting (test code = 34882-0) [facility] urinalysis [id number] 22:36:00 Test Item Value Reference Range Interpretation Comments Color urine, POC (test Dark Yellow code = 8525204) Clarity urine, POC Clear (test code = 2769218) Glucose urine, POC Negative Negative (test code = 0405147) Bilirubin urine, POC Negative Negative (test code = 4044818) Ketones urine, POC Negative Negative (test code = 2290939) Specific gravity urine, 1.005-1.030 POC (test code = 1872022) Blood urine, POC (test Negative Negative code = 4675124) pH urine, POC (test See_Comment [Automa aisha code = 3407932) message] The system which generated this result transmitted reference range : 5.0, 5.5, 6.0, 6.5, 7.0, 7.5, 8.0, 8.5. The reference r duy was not used to interpret this result as normal/abnormal . Protein urine, POC Negative Negative (test code = 5704906) Urobilinogen urine, POC <2.0 A (test code = 0506550) Nitrite urine, POC Negative Negative (test code = 3492471) Leukocyte esterase Negative Negative urine, POC (test code = 7034291) Lab Interpretation Abnormal (test code = 66057-2) [facility] urinalysis [id number] 22:36:00 Test Item Value Reference Range Interpretation Comments Color urine, POC (test Dark Yellow code = 6432183) Clarity urine, POC Clear (test code = 8044160) Glucose urine, POC Negative Negative (test code = 1192731) Bilirubin urine, POC Negative Negative (test code = 7819219) Ketones urine, POC Negative Negative (test code = 6037791) Specific gravity urine, 1.005-1.030 POC (test code = 6986583) Blood urine, POC (test Negative Negative code = 0216527) pH urine, POC (test See_Comment [Automa aisha code = 6692681) message] The system which generated this result transmitted reference range : 5.0, 5.5, 6.0, 6.5, 7.0, 7.5, 8.0, 8.5. The reference r duy was not used to interpret this result as normal/abnormal . Protein urine, POC Negative Negative (test code = 4097343) Urobilinogen urine, POC See_Comment A [Au tomated (test code = 7726970) messag e] The system which generated this result transmitted reference range : <=2.0. The reference range was not used to interpret this result as normal/abnormal . Nitrite urine, POC Negative Negative (test code = 5791616) Leukocyte esterase Negative Negative urine, POC (test code = 3234294) Lab Interpretation Abnormal (test code = 91704-1) [facility] [id number] 06:23:00 Test Item Value Reference Range Interpretation Comments Troponin-I (test code no gt See_Comment [Auto mated message] The = Troponin-I) system which g enerated this result transmit aisha reference range : <=0.40. The reference r duy was not used to interpr et this result as erin l/abnormal. [facility] [id number] 06:23:00 Test Item Value Reference Range Interpretation Comments Glucose Lvl (test code = Glucose Lvl) 93 70-99 [facility] [id number] 06:23:00 Test Item Value Reference Range Interpretation Comments BUN (test code = BUN) 7 7-22 [facility]2021-08-18 06:23:00 Test Item Value Reference Range Interpretation Comments Creatinine Lvl (test code = Creatinine 0.53 0.50-1.40 Lvl) [facility] [id number] 06:23:00 Test Item Value Reference Range Interpretation Comments Sodium Lvl (test code = Sodium Lvl) 140 135-145 [facility] [id number] 06:23:00 Test Item Value Reference Range Interpretation Comments Potassium Lvl (test code = Potassium 4.0 3.5-5.1 Lvl) [facility] [id number] 06:23:00 Test Item Value Reference Range Interpretation Comments Chloride Lvl (test code = Chloride Lvl) 107 95-109 [facility]2021-08-18 06:23:00 Test Item Value Reference Range Interpretation Comments CO2 (test code = CO2) 29 24-32 [facility] [id number] 06:23:00 Test Item Value Reference Range Interpretation Comments Calcium Lvl (test code = Calcium Lvl) 8.1 8.5-10.5 [facility] [id number] 06:23:00 Test Item Value Reference Range Interpretation Comments Total Protein (test code = Total 7.4 6.4-8.4 Protein) [facility] [id number] 06:23:00 Test Item Value Reference Range Interpretation Comments Albumin Lvl (test code = Albumin Lvl) 4.1 3.5-5.0 [facility] [id number] 06:23:00 Test Item Value Reference Range Interpretation Comments ALT (test code = ALT) 25 See_Comment [Auto mated message] The system which ge nerated this result transmit aisha reference range : <=65. The reference range was not used to interpr et this result as erin l/abnormal. [facility] [employer] [id number] 06:23:00 Test Item Value Reference Range Interpretation Comments AST (test code = AST) 26 See_Comment [Auto mated message] The system which ge nerated this result transmit aisha reference range : <=37. The reference range was not used to interpr et this result as erin l/abnormal. [facility] [employer] [id number] 06:23:00 Test Item Value Reference Range Interpretation Comments Alk Phos (test code = Alk Phos) 83 39-136 [facility] [id number] 06:23:00 Test Item Value Reference Range Interpretation Comments Bili Total (test code = Bili Total) 2.4 0.2-1.3 [facility] [id number] 06:23:00 Test Item Value Reference Range Interpretation Comments AGAP (test code = AGAP) 8.0 10.0-20.0 [facility] [id number] 06:23:00 Test Item Value Reference Range Interpretation Comments B/C Ratio (test code = B/C Ratio) 13 1 6-25 [facility] [id number] 06:23:00 Test Item Value Reference Range Interpretation Comments Globulin (test code = Globulin) 3.3 2.7-4.2 [facility] [employer] [id number] 06:23:00 Test Item Value Reference Range Interpretation Comments A/G Ratio (test code = A/G Ratio) 1.2 1 0.7-1.6 [facility]2021-08-18 06:23:00 Test Item Value Reference Range Interpretation Comments eGFR (test code = eGFR) 151 [facility]ballZarquxsREPCWNBBCB3302-81-45 06:23:00 Test Item Value Reference Range Interpretation Comments WBC (test code = WBC) 7.4 3.7-10.4 [place] 091391-08-18 06:23:00 Test Item Value Reference Range Interpretation Comments RBC (test code = RBC) 2.64 4.70-6.10 [place] 091391-08-18 06:23:00 Test Item Value Reference Range Interpretation Comments Hgb (test code = Hgb) 10.1 14.0-18.0 [facility] TomballDclyaupPWODSCZFTB4284-03-87 06:23:00 Test Item Value Reference Range Interpretation Comments Hct (test code = Hct) 28.0 42.0-54.0 [facility] TomballAaajwogHBFVUDFLCJ1877-42-29 06:23:00 Test Item Value Reference Range Interpretation Comments MCV (test code = MCV) 106.2 80.0-94.0 [facility] TomballYiskozlFRZZFZSYOP8688-07-80 06:23:00 Test Item Value Reference Range Interpretation Comments MCH (test code = MCH) 38.4 pg 27.0-31.0 [facility] TomballIwfzmtpTXGXXHCGRO5428-74-24 06:23:00 Test Item Value Reference Range Interpretation Comments MCHC (test code = MCHC) 36.2 32.0-36.0 [facility] TomballCmsrxymDBFNXCCDBY2208-20-43 06:23:00 Test Item Value Reference Range Interpretation Comments RDW (test code = RDW) 17.9 11.5-14.5 [place] 091391-08-18 06:23:00 Test Item Value Reference Range Interpretation Comments Platelet (test code = Platelet) 406 133-450 [facility] TomballThjauthBGBVQTGLYZ3998-33-65 06:23:00 Test Item Value Reference Range Interpretation Comments MPV (test code = MPV) 7.0 7.4-10.4 [place] 091391-08-18 06:23:00 Test Item Value Reference Range Interpretation Comments Retic Auto (test code = Retic Auto) 7.5 0.5-1.5 [facility] TomballRuotyblVJWOEHRPZC1972-00-56 06:23:00 Test Item Value Reference Range Interpretation Comments Plt Morph (test code = Normal (03/18/21 1:23 Plt Morph) AM) [place] 091391-08-18 06:23:00 Test Item Value Reference Range Interpretation Comments Segs (test code = Segs) 39.6 45.0-75.0 [place] 091391-08-18 06:23:00 Test Item Value Reference Range Interpretation Comments Lymphocytes (test code = Lymphocytes) 46.2 20.0-40.0 [place] 091391-08-18 06:23:00 Test Item Value Reference Range Interpretation Comments Monocytes (test code = Monocytes) 8.7 2.0-12.0 [place] 091391-08-18 06:23:00 Test Item Value Reference Range Interpretation Comments Eosinophils (test code = 3.7 See_Comment [A utomated message] The Eosinophils) system which ge nerated this result tra nsmitted reference range : <=4.0. The reference r duy was not used to int erpret this result as normal/abnormal . [facility] TomballBbuoqopGRJJPJLAUV2724-36-52 06:23:00 Test Item Value Reference Range Interpretation Comments Basophils (test code = 1.8 See_Comment [Aut omated message] The Basophils) system which ge nerated this result tra nsmitted reference range : <=1.0. The reference r duy was not used to int erpret this result as normal/abnormal . [facility] TomballTcyawfiPHVLOIHKBQ9947-02-57 06:23:00 Test Item Value Reference Range Interpretation Comments Neutrophils # (test code = Neutrophils 2.9 1.5-8.1 #) [place] 091391-08-18 06:23:00 Test Item Value Reference Range Interpretation Comments Lymphocytes # (test code = Lymphocytes 3.4 1.0-5.5 #) [place] 091391-08-18 06:23:00 Test Item Value Reference Range Interpretation Comments Monocytes # (test code 0.6 See_Comment [Aut omated message] The = Monocytes #) system which generated this result tra nsmitted reference range : <=0.8. The reference r duy was not used to int erpret this result as normal/abnormal . [facility] CenterGjdbiexQGWUPZHXBJ9346-83-92 06:23:00 Test Item Value Reference Range Interpretation Comments Eosinophils # (test code 0.3 See_Comment [A utomated message] The = Eosinophils #) system whic h generated this result tra nsmitted reference range : <=0.5. The reference r duy was not used to int erpret this result as normal/abnormal . [facility] CenterNqbfpczQAYZBGNICR4944-49-78 06:23:00 Test Item Value Reference Range Interpretation Comments Basophils # (test code 0.1 See_Comment [Aut omated message] The = Basophils #) system which generated this result tra nsmitted reference range : <=0.2. The reference r duy was not used to int erpret this result as normal/abnormal . [facility] CenterHsdbgxeNMBIAIMKUG4060-60-93 06:23:00 Test Item Value Reference Range Interpretation Comments Anisocyte (test code = 1+ *ABN*(03/18/21 Anisocyte) 1:23 AM) [facility] CenterAurtutoCBXXSJPDOF1138-39-08 06:23:00 Test Item Value Reference Range Interpretation Comments Macrocyte (test code = 1+ *ABN*(03/18/21 Macrocyte) 1:23 AM) [facility] CenterFvbflbtPEIWYGPMLK9856-29-56 06:23:00 Test Item Value Reference Range Interpretation Comments Polychrom (test code = Moderate *ABN*(03/18/21 Polychrom) 1:23 AM) [facility] CenterQgnhmziUVQGFGMIUQ7389-44-97 06:23:00 Test Item Value Reference Range Interpretation Comments Target Cell (test code = Target Cell) Slight [facility] CenterNewzkkfTNUTPTVLDN0894-34-26 06:23:00 Test Item Value Reference Range Interpretation Comments Sickle Cell (test code Slight *ABN*(03/18/21 = Sickle Cell) 1:23 AM) [facility] CenterCARD[facility]AC SXIEZMT5933-03-77 06:23:00 Test Item Value Reference Range Interpretation Comments Troponin-I (test code no gt See_Comment [Auto mated message] The = Troponin-I) system which g enerated this result transmit aisha reference range : <=0.40. The reference r duy was not used to interpr et this result as erin l/abnormal. [facility] CenterInfectiousCHEM [id number] 06:23:00 Test Item Value Reference Range Interpretation Comments Glucose Lvl (test code = Glucose Lvl) 93 70-99 [place] 105881-08-18 06:23:00 Test Item Value Reference Range Interpretation Comments BUN (test code = BUN) 7 7-22 [place] 105881-08-18 06:23:00 Test Item Value Reference Range Interpretation Comments Creatinine Lvl (test code = Creatinine 0.53 0.50-1.40 Lvl) [place] 105881-08-18 06:23:00 Test Item Value Reference Range Interpretation Comments Sodium Lvl (test code = Sodium Lvl) 140 135-145 [place] 105881-08-18 06:23:00 Test Item Value Reference Range Interpretation Comments Potassium Lvl (test code = Potassium 4.0 3.5-5.1 Lvl) [place] 105881-08-18 06:23:00 Test Item Value Reference Range Interpretation Comments Chloride Lvl (test code = Chloride Lvl) 107 95-109 [place] 105881-08-18 06:23:00 Test Item Value Reference Range Interpretation Comments CO2 (test code = CO2) 29 24-32 [place] 105881-08-18 06:23:00 Test Item Value Reference Range Interpretation Comments Calcium Lvl (test code = Calcium Lvl) 8.1 8.5-10.5 [place] 105881-08-18 06:23:00 Test Item Value Reference Range Interpretation Comments Total Protein (test code = Total 7.4 6.4-8.4 Protein) [place] 105881-08-18 06:23:00 Test Item Value Reference Range Interpretation Comments Albumin Lvl (test code = Albumin Lvl) 4.1 3.5-5.0 [place] 105881-08-18 06:23:00 Test Item Value Reference Range Interpretation Comments ALT (test code = ALT) 25 See_Comment [Auto mated message] The system which ge nerated this result transmit aisha reference range : <=65. The reference range was not used to interpr et this result as erin l/abnormal. [place] 105881-08-18 06:23:00 Test Item Value Reference Range Interpretation Comments AST (test code = AST) 26 See_Comment [Auto mated message] The system which ge nerated this result transmit aisha reference range : <=37. The reference range was not used to interpr et this result as erin l/abnormal. [place] 105881-08-18 06:23:00 Test Item Value Reference Range Interpretation Comments Alk Phos (test code = Alk Phos) 83 39-136 [place] 105881-08-18 06:23:00 Test Item Value Reference Range Interpretation Comments Bili Total (test code = Bili Total) 2.4 0.2-1.3 [place] 105881-08-18 06:23:00 Test Item Value Reference Range Interpretation Comments AGAP (test code = AGAP) 8.0 10.0-20.0 [place] [address]-08-18 06:23:00 Test Item Value Reference Range Interpretation Comments B/C Ratio (test code = B/C Ratio) 13 1 6-25 [place] [address]-08-18 06:23:00 Test Item Value Reference Range Interpretation Comments Globulin (test code = Globulin) 3.3 2.7-4.2 [place] 105881-08-18 06:23:00 Test Item Value Reference Range Interpretation Comments A/G Ratio (test code = A/G Ratio) 1.2 1 0.7-1.6 [place] [address]-08-18 06:23:00 Test Item Value Reference Range Interpretation Comments eGFR (test code = eGFR) 151 [place] 091391-08-18 06:23:00 Test Item Value Reference Range Interpretation Comments WBC (test code = WBC) 7.4 3.7-10.4 [place] 091391-08-18 06:23:00 Test Item Value Reference Range Interpretation Comments RBC (test code = RBC) 2.64 4.70-6.10 [place] [address]-08-18 06:23:00 Test Item Value Reference Range Interpretation Comments Hgb (test code = Hgb) 10.1 14.0-18.0 [place] [address]-08-18 06:23:00 Test Item Value Reference Range Interpretation Comments Hct (test code = Hct) 28.0 42.0-54.0 [place] 091391-08-18 06:23:00 Test Item Value Reference Range Interpretation Comments MCV (test code = MCV) 106.2 80.0-94.0 [facility]ballSmwzxchUZMEPZWTSW9012-44-19 06:23:00 Test Item Value Reference Range Interpretation Comments MCH (test code = MCH) 38.4 pg 27.0-31.0 [facility] TomballWhovkioJTHIKGRZCA2789-51-97 06:23:00 Test Item Value Reference Range Interpretation Comments MCHC (test code = MCHC) 36.2 32.0-36.0 [facility] TomballCbitdlmLGOYLAKOEW4864-75-08 06:23:00 Test Item Value Reference Range Interpretation Comments RDW (test code = RDW) 17.9 11.5-14.5 [place] 091391-08-18 06:23:00 Test Item Value Reference Range Interpretation Comments Platelet (test code = Platelet) 406 133-450 [facility] TomballSjoclwvMNGBKTTJCL3735-77-52 06:23:00 Test Item Value Reference Range Interpretation Comments MPV (test code = MPV) 7.0 7.4-10.4 [place] 091391-08-18 06:23:00 Test Item Value Reference Range Interpretation Comments Retic Auto (test code = Retic Auto) 7.5 0.5-1.5 [facility] TomballMaoewwcQDGSHDEPFO3349-71-49 06:23:00 Test Item Value Reference Range Interpretation Comments Plt Morph (test code = Normal (03/18/21 1:23 Plt Morph) AM) [facility] TomballLkauehoGVWXMYETML3187-50-35 06:23:00 Test Item Value Reference Range Interpretation Comments Segs (test code = Segs) 39.6 45.0-75.0 [place] 091391-08-18 06:23:00 Test Item Value Reference Range Interpretation Comments Lymphocytes (test code = Lymphocytes) 46.2 20.0-40.0 [place] 091391-08-18 06:23:00 Test Item Value Reference Range Interpretation Comments Monocytes (test code = Monocytes) 8.7 2.0-12.0 [place] 091391-08-18 06:23:00 Test Item Value Reference Range Interpretation Comments Eosinophils (test code = 3.7 See_Comment [A utomated message] The Eosinophils) system which ge nerated this result tra nsmitted reference range : <=4.0. The reference r duy was not used to int erpret this result as normal/abnormal . [facility] TomballGhgjyrdEQCBDXYJUH1793-04-13 06:23:00 Test Item Value Reference Range Interpretation Comments Basophils (test code = 1.8 See_Comment [Aut omated message] The Basophils) system which ge nerated this result tra nsmitted reference range : <=1.0. The reference r duy was not used to int erpret this result as normal/abnormal . [place] 091391-08-18 06:23:00 Test Item Value Reference Range Interpretation Comments Neutrophils # (test code = Neutrophils 2.9 1.5-8.1 #) [facility] TomballJwgntipVUTRZJQXBH6723-73-12 06:23:00 Test Item Value Reference Range Interpretation Comments Lymphocytes # (test code = Lymphocytes 3.4 1.0-5.5 #) [place] 091391-08-18 06:23:00 Test Item Value Reference Range Interpretation Comments Monocytes # (test code 0.6 See_Comment [Aut omated message] The = Monocytes #) system which generated this result tra nsmitted reference range : <=0.8. The reference r duy was not used to int erpret this result as normal/abnormal . [facility] TomballQtmuheiBKTHGKLGOH2614-29-30 06:23:00 Test Item Value Reference Range Interpretation Comments Eosinophils # (test code 0.3 See_Comment [A utomated message] The = Eosinophils #) system whic h generated this result tra nsmitted reference range : <=0.5. The reference r duy was not used to int erpret this result as normal/abnormal . [facility] TomballAsalgwaHLLCPERCUS7087-95-52 06:23:00 Test Item Value Reference Range Interpretation Comments Basophils # (test code 0.1 See_Comment [Aut omated message] The = Basophils #) system which generated this result tra nsmitted reference range : <=0.2. The reference r duy was not used to int erpret this result as normal/abnormal . [place] [id number] 06:23:00 Test Item Value Reference Range Interpretation Comments Anisocyte (test code = 1+ *ABN*(03/18/21 Anisocyte) 1:23 AM) [place] [id number] 06:23:00 Test Item Value Reference Range Interpretation Comments Macrocyte (test code = 1+ *ABN*(03/18/21 Macrocyte) 1:23 AM) [id number] 06:23:00 Test Item Value Reference Range Interpretation Comments Polychrom (test code = Moderate *ABN*(03/18/21 Polychrom) 1:23 AM) [facility]ba[id number] 06:23:00 Test Item Value Reference Range Interpretation Comments Target Cell (test code = Target Cell) [id number] 06:23:00 Test Item Value Reference Range Interpretation Comments Sickle Cell (test code Slight *ABN*(03/18/21 = Sickle Cell) 1:23 AM) [facility] [id number] 15:11:00 Test Item Value Reference Range Interpretation Comments WBC, UA (test code None seen See_Comment [Automat ed = 5821-4) message] The system which generated this result transmit aisha reference range : 0 - 5 /hpf. The reference range was not used to interpret this result as normal/abnormal . RBC, UA (test code None seen See_Comment [Automat ed = 58266-2) message] The system which generated this result transmit aisha reference range : 0 - 2 /hpf. The reference range was not used to interpret this result as normal/abnormal . Epithelial cells None seen See_Comment [Automated (non renal) (test message] T he code = 5787-7) system which generated this result transmit aisha reference range : 0 - 10 /hpf. The reference range was not used to interpret this result as normal/abnormal . Casts (test code = None seen None seen /lpf 09373-3) Bacteria, UA (test None seen None seen/Few code = 5769-5) JACQUI (test code = Performed at: - JACQUI) [facility] [address] [place] [id number] Director: Kip Aguilera MD, Phone: [phone] [facility] Hospital[facility]INALYSIS, COMPLETE, WITH REFLEX TO [id number] 15:11:00 Test Item Value Reference Range Interpretation Comments Specific gravity, 1.005-1.030 urine (test code = 2965-2) pH, urine (test 5.0-7.5 code = 5803-2) Color, UA (test Yellow Yellow code = 5778-6) Appearance (test Clear Clear code = 5767-9) WBC esterase, Negative Negative urine (test code = 5799-2) Protein, UA (test Trace Negative/Trace code = 35703-1) Glucose, urine Negative Negative (test code = 2349-9) Ketones, UA (test Negative Negative code = 2514-8) Occult blood, Negative Negative urine (test code = 5794-3) Bilirubin, UA Negative Negative (test code = 5770-3) Urobilinogen, UA 1.0 mg/dL 0.2-1.0 (test code = 87816-5) Nitrite, UA (test Negative Negative code = 5802-4) Microscopic See below: Microscopic was examination (test indicated and was code = 96809-6) performed. Urinalysis reflex Comment This speci men will (test code = 2386) not refle x to a Urine Culture. JACQUI (test code = Performed at: ) [facility] [address] [id number] Director: Kip Aguilera MD, Phone: [phone] Comment: A duplicate report has been generated due to demographic updates. [facility][] CMP [id number] 00:00:00 Test Item Value Reference Range Interpretation Comments Glucose (test code = 2345-7) 86 mg/dL 65-99 BUN (test code = 3094-0) 7 mg/dL 6-20 Creatinine; Below Low 0.51 mg/dL 0.76-1.27 Threshold (test code = 2160-0) eGFR If NonAfrcn Am (test code 154 mL/min/1.7 >59 = 26477-4) eGFR If Africn Am (test code = 178 mL/min/1.7 >59 52772-2) BUN/Creatinine Ratio (test 14 9-20 code = 3097-3) Sodium, Serum (test code = 138 mmol/L 131-099 8671-2) Potassium (test code = 2823-3) 4.7 mmol/L 3.5-5.2 Chloride (test code = 2075-0) 102 mmol/L 96-106 Carbon Dioxide, Total (test 20 mmol/L 20-29 code = 8-9) Calcium (test code = 59365-4) 9.2 mg/dL 8.7-10.2 Protein, Total (test code = 7.3 g/dL 6.0-8.5 2885-2) Albumin (test code = 1751-7) 4.9 g/dL 4.1-5.2 Globulin, Total (test code = 2.4 g/dL 1.5-4.5 01979-8) A/G Ratio (test code = 1759-0) 2.0 1.2-2.2 Bilirubin, Total; Above High 2.9 mg/dL 0.0-1.2 Threshold (test code = 1975-2) Alkaline Phosphatase (test 102 {IU/L} 39-117 code = 6768-6) AST (SGOT) (test code = 26 {IU/L} 0-40 1920-8) ALT (SGPT) (test code = 19 {IU/L} 0-44 1742-6) [facility][QL] [id number] 00:00:00 Test Item Value Reference Range Interpretation Comments LDH; Above High Threshold (test 421 {IU/L} 121-224 code = 2532-0) [facility][QL] VITAMIN D, 25-HYDROXY, LC/MS/[id number] 00:00:00 Test Item Value Reference Range Interpretation Comments Vitamin D, 34.2 ng/mL 30.0-100.0 Vitamin D defic iency has 25-Hydroxy (test been define d by the code = 41062-2) [place] [employer] and an Endocrine So [facility] practice guidel ine as alevel of serum 25-OH vitamin D less than 20 ng/mL (1,2).The Endocrine Society went on to further define vitamin Dinsufficiency as a level between 21 and 29 ng/mL (2).1. IOM ([employer] of Medicine). 2010 . Dietary reference intak es for calcium and D. Marcos [place]: The [employer] .2. Bradley MF, Tatum PAYAN, Faraz rutledge BLANCHARD, et al. Evaluation, treatment, and prevention of vitamin D de ficiency: an Endocrine So [facility] clinical practi ce guideline. JCEM . 2010; 96(7):1911 -30. [facility][QL] [id number] 00:00:00 Test Item Value Reference Range Interpretation Comments Ferritin, Serum; Above High 1684 ng/mL 30-400 Threshold (test code = 2276-4) [facility][QL] CBC (INCLUDES DIFF/PLT)2020-10-24 00:00:00 Test Item Value Reference Range Interpretation Comments WBC (test code = 5.2 3.4-10.8 6690-2) {x10E3/uL} RBC; Below Low 2.83 4.14-5.80 Sickle Threshold (test {x10E6/uL} cells.Polych romasia code = 789-8) presentEllipto cytes present. Hemoglobin; Below 9.6 g/dL 13.0-17.7 Low Threshold (test code = 718-7) Hematocrit; Below 28.3 % 37.5-51.0 Low Threshold (test code = 4544-3) MCV; Above High 100 fL 79-97 Threshold (test code = 787-2) MCH; Above High 33.9 pg 26.6-33.0 Threshold (test code = 785-6) MCHC (test code = 33.9 g/dL 31.5-35.7 786-4) RDW; Above High 22.9 % 11.6-15.4 Threshold (test code = 788-0) Platelets (test 430 150-450 code = 777-3) {x10E3/uL} Neutrophils (test 26 % Not Estab. code = 770-8) Lymphs (test code 61 % Not Estab. = 736-9) Monocytes (test 4 % Not Estab. code = 5905-5) Eos (test code = 4 % Not Estab. 713-8) Basos (test code = 5 % Not Estab. 706-2) Immature Cells See Comment (test code = Immature Cells) Neutrophils 1.4 1.4-7.0 (Absolute) (test {x10E3/uL} code = 751-8) Lymphs (Absolute); 3.2 0.7-3.1 Above High {x10E3/uL} Threshold (test code = 731-0) Monocytes(Absolute 0.2 0.1-0.9 ) (test code = {x10E3/uL} 742-7) Eos (Absolute) 0.2 0.0-0.4 (test code = {x10E3/uL} 711-2) Baso (Absolute); 0.3 0.0-0.2 Above High {x10E3/uL} Threshold (test code = 704-7) Immature See Comment Granulocytes (test code = 66273-5) Immature Grans See Comment (Abs) (test code = 48034-9) NRBC; Above High 10 % 0-0 Threshold (test code = 83384-1) Hematology Note: Manual differen tial was Comments: (test performed. code = 26994-5) [facility][QL] RETICULOCYTE [id number] 00:00:00 Test Item Value Reference Range Interpretation Comments Reticulocyte Count; Above 7.4 % 0.6-2.6 Verified by repeat High Threshold (test code an alysis = 18123-2) [facility][L] Prot+CreatU (Random)2020-10-24 00:00:00 Test Item Value Reference Range Interpretation Comments Creatinine, Urine (test code 65.6 mg/dL Not Estab. = 2161-8) Protein,Total,Urine (test 18.4 mg/dL Not Estab. code = 2888-6) Protein/Creat Ratio (test 280 {mg/g creat} 0-200 code = Protein/Creat Ratio) [facility][L] Hemoglobinopathy Fractionation [id number] 00:00:00 Test Item Value Reference Range Interpretation Comments Hgb F (test code = 12.0 % 0.0-2.0 Hgb F) Hgb A (test code = 7.9 % 96.4-98.8 Hgb A) Hgb A2 (test code = 2.7 % 1.8-3.2 Hgb A2) Hgb S (test code = 77.4 % See_Comment [Automat ed message] Hgb S) The system [employer] generated this result transmitted ref erence range: 0.0. The reference range was not used to interpr et this result as normal/abnormal . Interpretation: See Comment Reflex to Hg b (test code = Solubility aj cated Interpretation:) for confirm ation. 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 [facility]icians[facility]an[facility]horacic Echocardiogram Complete, (w Contrast, Strain and 3D if needed)2020-09-03 16:42:05 Test Item Value Reference Range Interpretation Comments Velocity Ratio 0.80 m/s (V1/V2) (test code = 4689) IVS,d (test code = 1.31 cm 6246515584) EF (test code = 61.46 % 7744227712) LVPWD,d (test code = 1.23 cm 4889096991) AoV Mean PG (test mmHg code = 8847360898) AV LVOT peak gradient mmHg (test code = 8514809980) MV valve area p 1/2 4.38 cm2 method (test code = 2378333659) E/A ratio (test code = 2928666405) E wave decelartion msec time (test code = 3568224810) LVOT Diam,S (test 2.41 cm code = 5474353564) LVOT area (test code 4.56 cm2 = 3789675333) LVOT Vmax (test code 1.36 m/s = 1488794726) LVOT VTI (test code = 0.26 m 0535663728) AoV Peak PG (test mmHg code = 4751028911) MV Peak E Johnnie (test 1.12 m/s code = 3655138461) MV stenosis pressure 50.26 ms 1/2 time (test code = 9167127895) MV Peak A Johnnie (test 0.51 m/s code = 5497194620) LV Vol,s A2C (test 66.78 mL code = 5736856070) LV Vol,d A2C (test 183.45 mL code = 6302575688) LA Volume Index (test 30.27 mL/m2 code = 7306869270) AoV Area, Vmax (test 3.63 cm2 code = 8012986030) AoV Area, VTI (test 3.94 cm2 code = 0604115337) AoV Vmax (test code = 1.71 m/s 9037850258) LV,d (test code = 4.87 cm 2115544872) LV,s (test code = 3.26 cm 5129476731) LV Vol,d A4C (test 149.73 ml code = 6761674365) LV Vol,s A4C (test 62.08 ml code = 7815009804) TR Vpeak (test code = 2.84 mm/s 4470832037) MV E A ratio (test code = 0247435241) RA pressure (test mmHg code = 5611622151) TR pk grad (test code mmHg = 3553137376) MR peak grad (test mmHg code = 7370240916) LA Vol 4C (test code 42.00 ml = 6052592325) RVSP (test code = mmHg 0947358698) LV SYS VOL (test code 42.90 ml = 4606184584) LV MARION VOL (test 111.30 ml code = 6864424057) LA diam s (test code 3.60 cm = 9688194121) LA Vol MOD A4C (test 42.28 ml code = 0488282754) LV SV Teich 2D (test 68.40 ml code = 3660799836) LVOT SI (test code = 62.47 ml/m2 9420020821) AoV Cusp sep (test code = 1282805484) Aortic Root (test 3.47 cm code = 9300253390) AoV Vmn (test code = 9256666940) IVS s 2D (test code = 7184495138) LA Ao Ratio Mmode (test code = 5358589744) D E excurs (test code = 3562873753) E f slope (test code = 4523288108) E prime lat (test code = 0409832589) E marisela sept (test code = 2941962307) PV acc T slope (test code = 0200570786) PV AT (test code = msec 9395783220) DRAPER BP EF (test 60.00 % code = 9755789461) LA VOL 2C (test code 59.00 ml = 0229944816) AoV VTI (test code = 0.30 m 5631017770) LV EF,A2C (test code 63.60 % = 0226636498) LV EF,A4C (test code 58.54 % = 2642483948) LV EF,BP (test code = 60.49 % 5061132897) Michael Langston,d A2C (test 9.36 cm code = 9345889341) Michael Langston,d A4C (test 9.61 cm code = 6892631839) Michael Langston,s A2C (test 7.53 cm code = 7004454380) Michael Langston,s A4C (test 8.04 cm code = 2514569073) LV SV,A2C (test code 116.68 % = 4613188344) LV SV,A4C (test code 87.65 % = 1309803577) LV Vol,d BP (test 167.49 ml code = 1229865600) LV Vol,s BP (test 66.18 nl code = 3124540183) MR Vmax (test code = 4.40 m/s 2801227132) LVOT Vmn (test code = 3717023922) Pt Size (test code = 8141592762) Pt Wt (test code = 8563205481) LVOT mean grad (test mmHg code = 4373871147) LVPW s PLAX (test 1.64 cm code = 9922761337) MV Decel slope (test 8.87 m/s2 code = 5749716354) JACQUI (test code = JACQUI) Left ventricular systolic function is normal. There is borderline left ventricular concentric hypertrophy. Left Ventricular ejection fraction is 60 - 65%. Mild-moderate tricuspid valve regurgitation. Left VentricleThe left ventricular chamber size is normal. Left ventricular systolic function is normal. Left Ventricular ejection fraction is 60 - 65%. There is borderline left ventricular concentric hypertrophy. Normal left ventricular regional wall motion.Right VentricleNormal right ventricular size and global function.Left AtriumThe left atrium size by volume is normal.Right AtriumThe right atrium is normal.IVC/SVCThe inferior vena cava and hepatic vein were normal in this study.Mitral ValveThe mitral valve appears normal. Trace mitral valve regurgitation. No evidence of mitral valve stenosis.Tricuspid ValveThe tricuspid valve appears normal. Mild-moderate tricuspid valve regurgitation. No evidence of tricuspid valve stenosis. Mildly elevated pulmonary artery systolic pressure. RA pressure is normal. RVSP is 37 mmHg.Aortic ValveThe aortic valve appears normal and trileaflet. No significant aortic regurgitation. No evidence of aortic valve stenosis.Pulmonic ValveThe pulmonic valve appears normal. No significant pulmonary valve regurgitation.Pericardiu mNo pericardial effusion seen.DiastologySpectral Doppler shows normal pattern of LV diastolic filling. Normal LV filling pressure.AortaAortic root is normal.Study Quality Study quality is good. [facility] NntshcyqXTFB-EzP-4 (COVID-19) RNA [Presence] in Respiratory specimen by ALESSIO with probe [id number] 22:20:20 Test Item Value Reference Range Interpretation Comments SARS-CoV-2 (COVID-19) RNA Not detected Not-Detected [Presence] in Respiratory specimen by ALESSIO with probe detection (test code = 27547-4) [facility] RNA [Presence] in Respiratory specimen by ALESSIO with probe [id number] 01:46:48 Test Item Value Reference Range Interpretation Comments SARS-CoV-2 (COVID-19) RNA Not detected Not-Detected [Presence] in Respiratory specimen by ALESSIO with probe detection (test code = 87094-5) [facility][QL] CMP [id number] 00:00:00 Test Item Value Reference Range Interpretation Comments Glucose (test code = 2345-7) 75 mg/dL 65-99 BUN (test code = 3094-0) 7 mg/dL 6-20 Creatinine; Below Low 0.51 mg/dL 0.76-1.27 Threshold (test code = 2160-0) eGFR If NonAfricn Am (test 155 mL/min/1.7 >59 code = 05309-8) eGFR If Africn Am (test code = 179 mL/min/1.7 >59 38306-6) BUN/Creatinine Ratio (test 14 9-20 code = 3097-3) Sodium, Serum (test code = 140 mmol/L 813-449 8118-2) Potassium (test code = 2823-3) 4.8 mmol/L 3.5-5.2 Chloride (test code = 2075-0) 98 mmol/L 96-106 Carbon Dioxide, Total (test 20 mmol/L 20-29 code = 2028-9) Calcium (test code = 46570-6) 9.7 mg/dL 8.7-10.2 Protein, Total (test code = 7.8 g/dL 6.0-8.5 2885-2) Albumin (test code = 1751-7) 5.0 g/dL 4.1-5.2 Globalulin, Total (test code = 2.8 g/dL 1.5-4.5 27309-4) A/G Ratio (test code = 1759-0) 1.8 1.2-2.2 Bilirubin, Total; Above High 2.0 mg/dL 0.0-1.2 Threshold (test code = 1975-2) Alkaline Phosphatase; Above 121 {IU/L} 39-117 High Threshold (test code = 6768-6) AST (SGOT) (test code = 24 {IU/L} 0-40 1920-8) ALT (SGPT) (test code = 24 {IU/L} 0-44 1742-6) [facility][QL] [id number] 00:00:00 Test Item Value Reference Range Interpretation Comments Ferritin, Serum; Above High 1605 ng/mL 30-400 Threshold (test code = 2276-4) [facility][QL] VITAMIN D, 25-HYDROXY, LC/MS/[id number] 00:00:00 Test Item Value Reference Range Interpretation Comments Vitamin D, 22.4 ng/mL 30.0-100.0 Vitamin D defic iency has 25-Hydroxy; Below been defin ed by the Low Threshold (test Institut e ofMedicine and code = 12408-5) an Endocrine Society practice guidel ine as alevel of serum 25-OH vitamin D less than 20 ng/mL (1,2).The Endocrine Socie ty went on to further d efine vitamin Dinsuff iciency as a level betw een 21 and 29 ng/mL (2 ).1. IOM ([place] [employer] M ed[employer]). 2010. Dietary r eference intakes for josé antonio cium and D. Marcos D C: The [employer] ies Press.2. Bradley MF, Tatum PAYAN, Faraz rutledge BLANCHARD, et al. Evaluation, treatment, and prevention of v itamin D deficiency: an Endocrine Society clinica l practice guidel ine. JCEM. 2010; 96(7):1911-30. [facility][QL] CBC (INCLUDES DIFF/PLT)2020-04-25 00:00:00 Test Item Value Reference Interpretation Comments Range WBC (test code = 8.1 3.4-10.8 6690-2) {x10E3/uL} RBC; Below Low 3.32 4.14-5.80 Polychromasia Threshold (test {x10E6/uL} presentHypoc hromasia code = 789-8) present.Few sc histocytes. Hemoglobin; Below 9.9 g/dL 13.0-17.7 Low Threshold (test code = 718-7) Hematocrit; Below 31.3 % 37.5-51.0 Low Threshold (test code = 4544-3) MCV (test code = 94 fL 79-97 787-2) MCH (test code = 29.8 pg 26.6-33.0 785-6) MCHC (test code = 31.6 g/dL 31.5-35.7 786-4) RDW; Above High 23.5 % 11.6-15.4 Threshold (test code = 788-0) Platelets; Above 749 150-450 High Threshold {x10E3/uL} (test code = 777-3) Neutrophils (test 62 % Not Estab. code = 770-8) Lymphs (test code 28 % Not Estab. = 736-9) Monocytes (test 5 % Not Estab. code = 5905-5) Eos (test code = 4 % Not Estab. 713-8) Basos (test code = 1 % Not Estab. 706-2) Immature Cells See Comment (test code = Immature Cells) Neutrophils 4.9 1.4-7.0 (Absolute) (test {x10E3/uL} code = 751-8) Lymphs (Absolute) 2.3 0.7-3.1 (test code = {x10E3/uL} 731-0) Monocytes(Absolute 0.4 0.1-0.9 ) (test code = {x10E3/uL} 742-7) Eos (Absolute) 0.4 0.0-0.4 (test code = {x10E3/uL} 711-2) Baso (Absolute) 0.1 0.0-0.2 (test code = {x10E3/uL} 704-7) Immature 0 % Not Estab. Granulocytes (test code = 27937-6) Immature Grans 0.0 0.0-0.1 (Abs) (test code = {x10E3/uL} 03047-7) NRBC; Above High 1 % 0-0 Threshold (test code = 19574-0) Hematology Note: Verified by ross roscopic Comments: (test examination. code = 61080-2) [facility][L] Prot+CreatU (Random)2020-04-25 00:00:00 Test Item Value Reference Range Interpretation Comments Creatinine, Urine (test code 107.6 mg/dL Not Estab. = 2161-8) Protein,Total,Urine (test 31.9 mg/dL Not Estab. code = 2888-6) Protein/Creat Ratio (test 296 {mg/g creat} 0-200 code = Protein/Creat Ratio) [facility][L] Hgb Frac. [id number] 00:00:00 Test Item Value Reference Range Interpretation Comments Hgb Solubility; Positive Negative A Abnormal (test code = 6864-3) Hgb F; Above High 6.6 % 0.0-2.0 Threshold (test code = 4576-5) Hgb A; Below Low 19.2 % 96.4-98.8 Threshold (test code = 4546-8) Hgb S; Above High 70.2 % >0.0 Threshold (test code = 4625-0) Hgb C (test code = 0.0 % >0.0 4563-3) Hgb A2; Above High 4.0 % 1.8-3.2 Threshold (test code = 67796-2) Hgb Variant (test code 0.0 % >0.0 = 94757-2) Interpretation (test Note: Hemoglo bin pattern and code = 08184-6) concentratio ns are consistent with transfusionof a homozygous Hgb S patient. [facility] VrbcqniqxwAIPR-QxC-6 (COVID-19) RNA [Presence] in Respiratory specimen by ALESSIO with probe [id number] 00:41:57 Test Item Value Reference Range Interpretation Comments SARS-CoV-2 (COVID-19) RNA Not detected Not-Detected [Presence] in Respiratory specimen by ALESSIO with probe detection (test code = 83728-8) [facility][QL] CBC (INCLUDES DIFF/PLT)2020-01-11 00:00:00 Test Item Value Reference Range Interpretation Comments WBC (test code = 6690-2) 10.6 {x10E3/uL} 3.4-10.8 RBC; Below Low Threshold 3.08 {x10E6/uL} 4.14-5.80 (test code = 789-8) Hemoglobin; Below Low 9.6 g/dL 13.0-17.7 Threshold (test code = 718-7) Hematocrit; Below Low 29.2 % 37.5-51.0 Threshold (test code = 4544-3) MCV (test code = 787-2) 95 fL 79-97 MCH (test code = 785-6) 31.2 pg 26.6-33.0 MCHC (test code = 786-4) 32.9 g/dL 31.5-35.7 RDW; Above High Threshold 20.8 % 11.6-15.4 (test code = 788-0) Platelets; Above High 531 {x10E3/uL} 150-450 Threshold (test code = 777-3) Neutrophils (test code = 59 % Not Estab. 770-8) Lymphs (test code = 736-9) 26 % Not Estab. Monocytes (test code = 6 % Not Estab. 5905-5) Eos (test code = 713-8) 7 % Not Estab. Basos (test code = 706-2) 1 % Not Estab. Immature Cells (test code = See Comment Immature Cells) Neutrophils (Absolute) (test 6.3 {x10E3/uL} 1.4-7.0 code = 751-8) Lymphs (Absolute) (test code 2.7 {x10E3/uL} 0.7-3.1 = 731-0) Monocytes (Absolute) (test 0.7 {x10E3/uL} 0.1-0.9 code = 742-7) Eos (Absolute); Above High 0.7 {x10E3/uL} 0.0-0.4 Threshold (test code = 711-2) Baso (Absolute) (test code = 0.1 {x10E3/uL} 0.0-0.2 704-7) Immature Granulocytes (test 1 % Not Estab. code = 45290-8) Immature Grans (Abs) (test 0.1 {x10E3/uL} 0.0-0.1 code = 04939-9) NRBC; Above High Threshold 2 % 0-0 (test code = 01651-5) Hematology Comments: (test See Comment code = 25507-8) [facility][QL] RETICULOCYTE [id number] 00:00:00 Test Item Value Reference Range Interpretation Comments Reticulocyte Count; Above High 11.9 % 0.6-2.6 Threshold (test code = 84060-1) [facility][QL] CMP [id number] 00:00:00 Test Item Value Reference Range Interpretation Comments Glucose; Below Low Threshold 62 mg/dL 65-99 (test code = 2345-7) BUN (test code = 3094-0) 7 mg/dL 6-20 Creatinine; Below Low 0.55 mg/dL 0.76-1.27 Threshold (test code = 2160-0) eGFR If NonAfricn Am (test 150 mL/min/1.7 >59 code = 92939-1) eGFR If Africn Am (test code = 173 mL/min/1.7 >59 14322-4) BUN/Creatinine Ratio (test 13 9-20 code = 3097-3) Sodium, Serum (test code = 138 mmol/L 245-615 4002-2) Potassium; Above High 5.8 mmol/L 3.5-5.2 Threshold (test code = 2823-3) Chloride (test code = 2075-0) 99 mmol/L 96-106 Carbon Dioxide, Total (test 21 mmol/L 20-29 code = 8-9) Calcium (test code = 53884-9) 9.7 mg/dL 8.7-10.2 Protein, Total (test code = 7.9 g/dL 6.0-8.5 2885-2) Albumin (test code = 1751-7) 5.0 g/dL 4.1-5.2 Globalulin, Total (test code = 2.9 g/dL 1.5-4.5 24755-0) A/G Ratio (test code = 1759-0) 1.7 1.2-2.2 Bilirubin, Total; Above High 2.3 mg/dL 0.0-1.2 Threshold (test code = 1975-2) Alkaline Phosphatase (test 105 {IU/L} 39-117 code = 6768-6) AST (test code = 1920-8) 24 {IU/L} 0-40 ALT (test code = 1742-6) 21 {IU/L} 0-44 [facility][QL] [id number] 00:00:00 Test Item Value Reference Range Interpretation Comments LDH; Above High Threshold (test 369 {IU/L} 121-224 code = 2532-0) [facility][QL] BILIRUBIN, [id number] 00:00:00 Test Item Value Reference Range Interpretation Comments Bilirubin, Direct; Above High 0.46 mg/dL 0.00-0.40 Threshold (test code = 1968-7) [facility][QL] VITAMIN D, 25-HYDROXY, LC/MS/[id number] 00:00:00 Test Item Value Reference Range Interpretation Comments Vitamin D, 26.9 ng/mL 30.0-100.0 Vitamin D defic iency has 25-Hydroxy; Below been defin ed by the Low Threshold (test [facility] and code = 39060-0) an Endocrine Society practice guidel ine as alevel of serum 25-OH vitamin D less than 20 ng/mL (1,2).The Endocrine Socie ty went on to further d efine vitamin Dinsuff iciency as a level betw een 21 and 29 ng/mL (2 ).1. IOM ([place] [employer] ed[employer]). 2010. Dietary r eference intakes for josé antonio cium and D. Marcos D C: [employer].2. Bradley MF, Tatum PAYAN, Faraz BLANCHARD, et al. Evaluation, treatment, and prevention of v itamin D deficiency: an Endocrine Society clinica l practice guidel ine. JCEM. 2010; 96(7):1911-30. [facility][QL] [id number] 00:00:00 Test Item Value Reference Range Interpretation Comments Ferritin, Serum; Above High 1457 ng/mL 30-400 Threshold (test code = 2276-4) [facility][QL] MICROALBUMIN, RANDOM URINE (W/CREATININE)2020-01-11 00:00:00 Test Item Value Reference Range Interpretation Comments Creatinine, Urine 75.9 mg/dL Not Estab. (test code = 2161-8) Microalbumin, 78.0 ug/mL Not Estab. Urine (test code = 27003-5) Microalb/Creat 103 {mg/g creat} 0-29 Normal: 0 - 29 Ratio (test code Moderately increased: = Microalb/Creat 30 - 300 Se verely Ratio) increased: >300 Please note reference inter shola change [facility][L] Hgb Frac. 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 S uggest clinical andhematologic correlation. Si ckle Cell Interpreta tion Ranges Hgb F 0. 0 - 20.0% Hgb S 75. 0 - 97.0% Hgb A2 3. 0 - 5.0%Hgb A2 va lues are seen to be increased over normal levels.This inc rease is typically du e to interference fromco-eluting Hgb S-subunits with the HPLC method and thereforethe Hg b A2 interpretation ranges have been adjus aisha. [place] [facility]iciansCARDIAC NBUVUNE0987-48-78 03:39:00 Test Item Value Reference Range Interpretation Comments Troponin-I (test code no gt See_Comment [Auto mated message] The = Troponin-I) system which g enerated this result transmit aisha reference range : <=0.40. The reference r duy was not used to interpr et this result as erin l/abnormal. [facility]SraxaclPBPSVWDOAQYT5261-73-66 03:39:00 Test Item Value Reference Range Interpretation Comments AGAP (test code = AGAP) 17.7 10.0-20.0 [facility]hamEmrbkjfOHKFOZCRGBCN6985-62-10 03:39:00 Test Item Value Reference Range Interpretation Comments B/C Ratio (test code = B/C Ratio) 11 1 6-25 [facility] HospitalFfxfszkIKHCNMWANBLD3068-26-31 03:39:00 Test Item Value Reference Range Interpretation Comments Globulin (test code = Globulin) 3.9 2.7-4.2 [facility] HospitalJppnmwoMVVTXKDOPILD3632-15-83 03:39:00 Test Item Value Reference Range Interpretation Comments A/G Ratio (test code = A/G Ratio) 1.1 1 0.7-1.6 [facility] HospitalBrggkloOSYLDEDBIQIV4244-30-71 03:39:00 Test Item Value Reference Range Interpretation Comments Glucose Lvl (test code = Glucose Lvl) 100 70-99 [facility] HospitalTbacilzGKOONRDMNJDM9559-48-44 03:39:00 Test Item Value Reference Range Interpretation Comments BUN (test code = BUN) 6 7-22 [facility] HospitalGfifskoKYHPANSDWOVQ8089-68-07 03:39:00 Test Item Value Reference Range Interpretation Comments Creatinine Lvl (test code = Creatinine 0.55 0.50-1.40 Lvl) [facility] HospitalGnnhiteXTVAADKDGKUD8162-28-44 03:39:00 Test Item Value Reference Range Interpretation Comments Sodium Lvl (test code = Sodium Lvl) 140 135-145 [facility] HospitalNinpftnHECFIUEQZJPY5346-37-59 03:39:00 Test Item Value Reference Range Interpretation Comments Potassium Lvl (test code = Potassium 3.7 3.5-5.1 Lvl) [facility] HospitalLmtwfymZDWPFUXOKOCW5069-66-45 03:39:00 Test Item Value Reference Range Interpretation Comments Chloride Lvl (test code = Chloride Lvl) 103 95-109 [facility] HospitalGzhrpfuXZIIJNIZXYXY8595-69-46 03:39:00 Test Item Value Reference Range Interpretation Comments CO2 (test code = CO2) 23 24-32 [facility] HospitalKzfibyoYILDNHBSSTXA4278-05-66 03:39:00 Test Item Value Reference Range Interpretation Comments Calcium Lvl (test code = Calcium Lvl) 9.0 8.5-10.5 [facility] HospitalVmwliatUKXMYPSDMKHF2331-70-33 03:39:00 Test Item Value Reference Range Interpretation Comments eGFR (test code = eGFR) 173 [facility] HospitalQvztyxqTUFJAYODMAHX9240-41-80 03:39:00 Test Item Value Reference Range Interpretation Comments Total Protein (test code = Total 8.3 6.4-8.4 Protein) [facility] HospitalDspvxofPUBDHAVFSRVU0596-84-81 03:39:00 Test Item Value Reference Range Interpretation Comments Albumin Lvl (test code = Albumin Lvl) 4.4 3.5-5.0 [facility] HospitalBnbhihtRAHEJMRRFHUY0239-71-97 03:39:00 Test Item Value Reference Range Interpretation Comments ALT (test code = ALT) 36 See_Comment [Auto mated message] The system which ge nerated this result transmit aisha reference range : <=65. The reference range was not used to interpr et this result as erin l/abnormal. [facility] HospitalBdmcdudWZDMCYITKTBQ0345-30-31 03:39:00 Test Item Value Reference Range Interpretation Comments AST (test code = AST) 34 See_Comment [Auto mated message] The system which ge nerated this result transmit aisha reference range : <=37. The reference range was not used to interpr et this result as erin l/abnormal. [facility] HospitalEpjkkexMRHARYLCMZLR8652-04-49 03:39:00 Test Item Value Reference Range Interpretation Comments Alk Phos (test code = Alk Phos) 159 39-136 [facility] HospitalUlomfkgQWADHWKXOOBA1477-27-68 03:39:00 Test Item Value Reference Range Interpretation Comments Bili Total (test code = Bili Total) 3.5 0.2-1.3 [facility]PciwmjzBIIKOZUNGW2868-36-36 03:39:00 Test Item Value Reference Range Interpretation Comments Retic Auto (test code = Retic Auto) 7.5 0.5-1.5 [facility] CenterC[facility] ZOJEAST2410-22-83 03:39:00 Test Item Value Reference Range Interpretation Comments Troponin-I (test code no gt See_Comment [Auto mated message] The = Troponin-I) system which g enerated this result transmit aisha reference range : <=0.40. The reference r duy was not used to interpr et this result as erin l/abnormal. [facility] HospitalLloagvsLXCINBALXGUM8175-94-50 03:39:00 Test Item Value Reference Range Interpretation Comments AGAP (test code = AGAP) 17.7 10.0-20.0 [facility] HospitalLcukhmcMNNLXODZFJWC0376-18-72 03:39:00 Test Item Value Reference Range Interpretation Comments B/C Ratio (test code = B/C Ratio) 11 1 6-25 [facility] HospitalYwxecjcBCVOOMLZXNRU9107-27-68 03:39:00 Test Item Value Reference Range Interpretation Comments Globulin (test code = Globulin) 3.9 2.7-4.2 [facility] HospitalFxfdqcwLNHCJADCLXBT5708-81-62 03:39:00 Test Item Value Reference Range Interpretation Comments A/G Ratio (test code = A/G Ratio) 1.1 1 0.7-1.6 [facility] HospitalEzddcroWGUVPAMNKMFL2147-58-76 03:39:00 Test Item Value Reference Range Interpretation Comments Glucose Lvl (test code = Glucose Lvl) 100 70-99 [facility] HospitalAbdewbyQXNQILSMZXKX8113-52-31 03:39:00 Test Item Value Reference Range Interpretation Comments BUN (test code = BUN) 6 7-22 [facility] HospitalOirosesPTWHTDCAOKJG8244-98-82 03:39:00 Test Item Value Reference Range Interpretation Comments Creatinine Lvl (test code = Creatinine 0.55 0.50-1.40 Lvl) [facility] HospitalUczprxhQEERPIQRZTEM2322-51-17 03:39:00 Test Item Value Reference Range Interpretation Comments Sodium Lvl (test code = Sodium Lvl) 140 135-145 [facility] HospitalIiabsuxWEMUOTQBCETK0415-05-28 03:39:00 Test Item Value Reference Range Interpretation Comments Potassium Lvl (test code = Potassium 3.7 3.5-5.1 Lvl) [facility] HospitalQielovmUMJSTVJJNJZS8428-28-55 03:39:00 Test Item Value Reference Range Interpretation Comments Chloride Lvl (test code = Chloride Lvl) 103 95-109 [facility] HospitalQgzroikQUXKVGQKXWYG2346-55-52 03:39:00 Test Item Value Reference Range Interpretation Comments CO2 (test code = CO2) 23 24-32 [facility] HospitalWtuatmtULHEBLUWJMWK2944-69-68 03:39:00 Test Item Value Reference Range Interpretation Comments Calcium Lvl (test code = Calcium Lvl) 9.0 8.5-10.5 [facility] HospitalMwenjsaRUTEZVLVUFQC8807-23-99 03:39:00 Test Item Value Reference Range Interpretation Comments eGFR (test code = eGFR) 173 [facility] HospitalNhihrxfCMAAROYVTJGV1146-96-80 03:39:00 Test Item Value Reference Range Interpretation Comments Total Protein (test code = Total 8.3 6.4-8.4 Protein) [facility] HospitalTbjxpruIBPHDVDEDMTU1023-94-67 03:39:00 Test Item Value Reference Range Interpretation Comments Albumin Lvl (test code = Albumin Lvl) 4.4 3.5-5.0 [facility] HospitalMfbzzsiLBOVDHJJQTSZ4844-02-17 03:39:00 Test Item Value Reference Range Interpretation Comments ALT (test code = ALT) 36 See_Comment [Auto mated message] The system which ge nerated this result transmit aisha reference range : <=65. The reference range was not used to interpr et this result as erin l/abnormal. [facility] HospitalMbeoppzKUECGIYHHYQN3813-92-54 03:39:00 Test Item Value Reference Range Interpretation Comments AST (test code = AST) 34 See_Comment [Auto mated message] The system which ge nerated this result transmit aisha reference range : <=37. The reference range was not used to interpr et this result as erin l/abnormal. [facility] HospitalLnuaodvXKERZCGZWEYD3571-99-97 03:39:00 Test Item Value Reference Range Interpretation Comments Alk Phos (test code = Alk Phos) 159 39-136 [facility] HospitalHbfxpsnMJDFXUHABTKL7096-10-44 03:39:00 Test Item Value Reference Range Interpretation Comments Bili Total (test code = Bili Total) 3.5 0.2-1.3 [facility]ballPxwgqoiIXBGHKBAWJ5945-86-08 03:39:00 Test Item Value Reference Range Interpretation Comments Retic Auto (test code = Retic Auto) 7.5 0.5-1.5 [facility] TomballGsixtywDPMDIVTFVX6492-87-46 03:33:42 Test Item Value Reference Range Interpretation Comments Neutrophils # (test code = Neutrophils 5.6 1.5-8.1 #) [facility] TomballQydnhitLACEBNPCCS8435-07-99 03:33:42 Test Item Value Reference Range Interpretation Comments Lymphocytes # (test code = Lymphocytes 2.1 1.0-5.5 #) [facility] TomballMoeengmBOJVKQEEMZ7668-45-65 03:33:42 Test Item Value Reference Range Interpretation Comments Monocytes # (test code 0.8 See_Comment [Aut omated message] The = Monocytes #) system which generated this result tra nsmitted reference range : <=0.8. The reference r duy was not used to int erpret this result as normal/abnormal . [facility] TomballUzgnazpQGVDQKWWCB0629-08-73 03:33:42 Test Item Value Reference Range Interpretation Comments Eosinophils # (test code 0.3 See_Comment [A utomated message] The = Eosinophils #) system whic h generated this result tra nsmitted reference range : <=0.5. The reference r duy was not used to int erpret this result as normal/abnormal . [facility] TomballFqxxajwHSTARUPSZQ2170-19-82 03:33:42 Test Item Value Reference Range Interpretation Comments Segs (test code = Segs) 64.0 45.0-75.0 [facility] TomballZcuvvqjRTMFUBXBGD7006-08-98 03:33:42 Test Item Value Reference Range Interpretation Comments Bands (test code = 0.0 See_Comment [Automat ed message] The Bands) system which ge nerated this result transmit aisha reference range : <=11.0. The reference r duy was not used to interpr et this result as erin l/abnormal. [facility] TomballMarriylWLGWPLIFSI5949-97-32 03:33:42 Test Item Value Reference Range Interpretation Comments Lymphocytes (test code = Lymphocytes) 24.0 20.0-40.0 [facility]ballMmlrqqfOWOTIRIKNI1045-99-59 03:33:42 Test Item Value Reference Range Interpretation Comments Monocytes (test code = Monocytes) 9.0 2.0-12.0 [facility] TomballGfhsyemEIDEEXYZQN8625-81-32 03:33:42 Test Item Value Reference Range Interpretation Comments Eosinophils (test code = 3.0 See_Comment [A utomated message] The Eosinophils) system which ge nerated this result tra nsmitted reference range : <=4.0. The reference r duy was not used to int erpret this result as normal/abnormal . [facility] TomballRiawfavRXMRFDHEKK0038-23-08 03:33:42 Test Item Value Reference Range Interpretation Comments Atypical Lymphs (test code = Atypical 0.0 Lymphs) [facility] TomballBvwlekxWPIPXIVTWC7614-51-42 03:33:42 Test Item Value Reference Range Interpretation Comments NRBC (test code = NRBC) 3 [facility] TomballTgcbxfeUSQXEDAPII9366-73-47 03:33:42 Test Item Value Reference Range Interpretation Comments Plt Morph (test code = Normal (07/30/19 9:33 Plt Morph) PM) [facility] TomballNmtgjeaZPSHVQFJAU1617-00-53 03:33:42 Test Item Value Reference Range Interpretation Comments Anisocyte (test code = 1+ *ABN*(07/30/19 Anisocyte) 9:33 PM) [facility] TomballCovnhmgXZYYKBYSEE3888-92-15 03:33:42 Test Item Value Reference Range Interpretation Comments Polychrom (test code = Moderate Polychrom) *ABN*(07/30/19 9:33 PM) [facility] TomballVpioaduSINBOKTUXI0472-26-78 03:33:42 Test Item Value Reference Range Interpretation Comments Target Cell (test code = Target Cell) Slight [facility] TomballPjczeqrKQJIPUDFPC4274-86-99 03:33:42 Test Item Value Reference Range Interpretation Comments Schistocyte (test code = 1-3 per HPF Schistocyte) (07/30/19 9:33 PM) [facility] TomballJqncsnySSQBYOYXAR3624-88-17 03:33:42 Test Item Value Reference Range Interpretation Comments Sickle Cell (test code Slight *ABN*(07/30/19 = Sickle Cell) 9:33 PM) [facility] TomballHpchkbsABNEDNBZUC2500-63-51 03:33:42 Test Item Value Reference Range Interpretation Comments HJ Body (test code = Occasional *ABN*(07/30/19 HJ Body) 9:33 PM) [facility] TomballWnxuifkAJHALGYLIC9865-77-86 03:33:42 Test Item Value Reference Range Interpretation Comments WBC (test code = WBC) 8.7 3.7-10.4 [facility] TomballQnowqscCTXFUREILJ1420-96-79 03:33:42 Test Item Value Reference Range Interpretation Comments RBC (test code = RBC) 2.72 4.70-6.10 [facility] TomballKybapeaHCVOKBJKBL1980-38-18 03:33:42 Test Item Value Reference Range Interpretation Comments Hgb (test code = Hgb) 9.2 14.0-18.0 [facility] TomballEseanfaVRNPKBLQMM1264-46-40 03:33:42 Test Item Value Reference Range Interpretation Comments Hct (test code = Hct) 25.8 42.0-54.0 [facility] TomballUgkayauQPPVYJQIWO8175-04-53 03:33:42 Test Item Value Reference Range Interpretation Comments MCV (test code = MCV) 94.9 80.0-94.0 [facility] TomballWastbffTIVQIMKUPH3512-63-64 03:33:42 Test Item Value Reference Range Interpretation Comments MCH (test code = MCH) 33.8 pg 27.0-31.0 [facility] TomballNjlxqorPMUEJVCWDV3056-59-99 03:33:42 Test Item Value Reference Range Interpretation Comments MCHC (test code = MCHC) 35.6 32.0-36.0 [facility] TomballKbpvlkqBWSZBYYGSI1416-04-13 03:33:42 Test Item Value Reference Range Interpretation Comments RDW (test code = RDW) 25.4 11.5-14.5 [place] [address]-12-31 03:33:42 Test Item Value Reference Range Interpretation Comments Platelet (test code = Platelet) 514 133-450 [facility] TomballKxcofcvBLWQLBSMFV2774-37-82 03:33:42 Test Item Value Reference Range Interpretation Comments MPV (test code = MPV) 7.2 7.4-10.[address]12-31 03:33:42 Test Item Value Reference Range Interpretation Comments PT (test code = PT) 14.2 s 12.0-14.[address]12-31 03:33:42 Test Item Value Reference Range Interpretation Comments INR (test code = INR) 1.10 1 0.85-1.17 [place] [address]-12-31 03:33:42 Test Item Value Reference Range Interpretation Comments PTT (test code = PTT) 34.9 s 22.9-35.8 [place] [address]-12-31 03:33:42 Test Item Value Reference Range Interpretation Comments Neutrophils # (test code = Neutrophils 5.6 1.5-8.1 #) [place] [address]-12-31 03:33:42 Test Item Value Reference Range Interpretation Comments Lymphocytes # (test code = Lymphocytes 2.1 1.0-5.5 #) [place] 576699-12-31 03:33:42 Test Item Value Reference Range Interpretation Comments Monocytes # (test code 0.8 See_Comment [Aut omated message] The = Monocytes #) system which generated this result tra nsmitted reference range : <=0.8. The reference r duy was not used to int erpret this result as normal/abnormal . [address]12-31 03:33:42 Test Item Value Reference Range Interpretation Comments Eosinophils # (test code 0.3 See_Comment [A utomated message] The = Eosinophils #) system whic h generated this result tra nsmitted reference range : <=0.5. The reference r duy was not used to int erpret this result as normal/abnormal . [facility] TomballMbyuzzyNDJUKRRGHL4385-16-44 03:33:42 Test Item Value Reference Range Interpretation Comments Segs (test code = Segs) 64.0 45.0-75.0 [facility] TomballDacmohwGQIANSSTCY4787-42-78 03:33:42 Test Item Value Reference Range Interpretation Comments Bands (test code = 0.0 See_Comment [Automat ed message] The Bands) system which ge nerated this result transmit aisha reference range : <=11.0. The reference r duy was not used to interpr et this result as erin l/abnormal. [facility] TomballYunfbzpZBVPVDSBMG2617-04-70 03:33:42 Test Item Value Reference Range Interpretation Comments Lymphocytes (test code = Lymphocytes) 24.0 20.0-40.0 [facility] TomballPtenrzhKSMLOWEDFA5662-16-44 03:33:42 Test Item Value Reference Range Interpretation Comments Monocytes (test code = Monocytes) 9.0 2.0-12.0 [facility] TomballAkjsyxpLVYBFXFKRY7805-46-11 03:33:42 Test Item Value Reference Range Interpretation Comments Eosinophils (test code = 3.0 See_Comment [A utomated message] The Eosinophils) system which ge nerated this result tra nsmitted reference range : <=4.0. The reference r duy was not used to int erpret this result as normal/abnormal . [facility] TomballHonpjjpOOWTFAIBLD2653-97-86 03:33:42 Test Item Value Reference Range Interpretation Comments Atypical Lymphs (test code = Atypical 0.0 Lymphs) [facility] TomballWtdyengIRAOEHOMEM4614-44-82 03:33:42 Test Item Value Reference Range Interpretation Comments NRBC (test code = NRBC) 3 [facility] TomballEebaksiXIQBKQQFCE4482-35-48 03:33:42 Test Item Value Reference Range Interpretation Comments Plt Morph (test code = Normal (07/30/19 9:33 Plt Morph) PM) [facility] TomballRvjlilgRIGCGYZDYD1523-23-62 03:33:42 Test Item Value Reference Range Interpretation Comments Anisocyte (test code = 1+ *ABN*(07/30/19 Anisocyte) 9:33 PM) [facility] TomballFyeaxwjXAAJRSFOZE7837-71-35 03:33:42 Test Item Value Reference Range Interpretation Comments Polychrom (test code = Moderate Polychrom) *ABN*(07/30/19 9:33 PM) [facility] TomballMgvyxnzVTTJLJBLQM9575-94-71 03:33:42 Test Item Value Reference Range Interpretation Comments Target Cell (test code = Target Cell) Slight [facility] TomballEtzldbxHSOLKUKFIF6246-09-81 03:33:42 Test Item Value Reference Range Interpretation Comments Schistocyte (test code = 1-3 per HPF Schistocyte) (07/30/19 9:33 PM) [facility] TomballFwrrlbcMRMFZBXOGL6713-62-97 03:33:42 Test Item Value Reference Range Interpretation Comments Sickle Cell (test code Slight *ABN*(07/30/19 = Sickle Cell) 9:33 PM) [facility] TomballAkujiplGQWBCBJAES7255-23-05 03:33:42 Test Item Value Reference Range Interpretation Comments HJ Body (test code = Occasional *ABN*(07/30/19 HJ Body) 9:33 PM) [facility] TomballBdivlgcPVDFPUFMBA2936-78-38 03:33:42 Test Item Value Reference Range Interpretation Comments WBC (test code = WBC) 8.7 3.7-10.4 [facility] TomballBnusrokVQBHRHNZVO3264-13-74 03:33:42 Test Item Value Reference Range Interpretation Comments RBC (test code = RBC) 2.72 4.70-6.10 [facility] TomballSgutpdkJGXXQSAORU6644-95-97 03:33:42 Test Item Value Reference Range Interpretation Comments Hgb (test code = Hgb) 9.2 14.0-18.0 [facility] TomballDfsolqpLQSAXYHLAG3784-41-29 03:33:42 Test Item Value Reference Range Interpretation Comments Hct (test code = Hct) 25.8 42.0-54.0 [facility] TomballVudfayyFELBXAIGFV9114-96-56 03:33:42 Test Item Value Reference Range Interpretation Comments MCV (test code = MCV) 94.9 80.0-94.0 [facility] TomballVniudyzIEWIPGKFAZ9188-19-67 03:33:42 Test Item Value Reference Range Interpretation Comments MCH (test code = MCH) 33.8 pg 27.0-31.0 [facility] TomballCzmrstnNTEPGTGRRU8137-76-39 03:33:42 Test Item Value Reference Range Interpretation Comments MCHC (test code = MCHC) 35.6 32.0-36.0 [facility] TomballTgnavnzVFWUVZWRIZ2142-45-01 03:33:42 Test Item Value Reference Range Interpretation Comments RDW (test code = RDW) 25.4 11.5-14.5 [facility] TomballZjvvxivWXXFHPBUIV8962-86-66 03:33:42 Test Item Value Reference Range Interpretation Comments Platelet (test code = Platelet) 514 133-450 [facility] TomballIhjnknaRAHLXQLNRX5141-02-71 03:33:42 Test Item Value Reference Range Interpretation Comments MPV (test code = MPV) 7.2 7.4-10.4 [facility] TomballNmtmwehJOSEYICQNS7884-12-89 03:33:42 Test Item Value Reference Range Interpretation Comments PT (test code = PT) 14.2 s 12.0-14.7 [facility] TomballAywdepzEKVHXWXNPL5690-67-94 03:33:42 Test Item Value Reference Range Interpretation Comments INR (test code = INR) 1.10 1 0.85-1.17 [facility] TomballLhlfyxdAENYUJADJF8613-21-55 03:33:42 Test Item Value Reference Range Interpretation Comments PTT (test code = PTT) 34.9 s 22.9-35.8 [facility]] CMP W/KHBO5450-62-31 00:00:00 Test Item Value Reference Range Interpretation Comments Glucose (test code = 2345-7) 82 mg/dL 65-99 BUN (test code = 3094-0) 6 mg/dL 6-20 Creatinine; Below Low 0.48 mg/dL 0.76-1.27 Threshold (test code = 2160-0) eGFR If NonAfricn Am (test 159 mL/min/1.7 >59 code = 70217-4) eGFR If Africn Am (test code = 183 mL/min/1.7 >59 04496-7) BUN/Creatinine Ratio (test 13 -20 code = 3097-3) Sodium, Serum (test code = 139 mmol/L 793-208 3069-2) Potassium (test code = 2823-3) 4.4 mmol/L 3.5-5.2 Chloride (test code = 2075-0) 99 mmol/L 96-106 Carbon Dioxide, Total (test 22 mmol/L 20-29 code = 8-9) Calcium, Serum (test code = 9.4 mg/dL 8.7-10.2 70299-6) Protein, Total (test code = 7.8 g/dL 6.0-8.5 2885-2) Albumin (test code = 1751-7) 4.7 g/dL 3.5-5.5 Globalulin, Total (test code = 3.1 g/dL 1.5-4.5 60192-8) A/G Ratio (test code = 1759-0) 1.5 1.2-2.2 Bilirubin, Total; Above High 1.9 mg/dL 0.0-1.2 Threshold (test code = 1975-2) Alkaline Phosphatase; Above 183 {IU/L} 39-117 High Threshold (test code = 6768-6) AST (SGOT) (test code = 19 {IU/L} 0-40 1920-8) ALT (SGPT) (test code = 9 {IU/L} 0-44 1742-6) [facility]] CBC (INCLUDES DIFF/PLT)2019-06-15 00:00:00 Test Item Value Reference Range Interpretation Comments WBC (test code = 6690-2) 7.5 {x10E3/uL} 3.4-10.8 RBC; Below Low Threshold 3.16 {x10E6/uL} 4.14-5.80 (test code = 789-8) Hemoglobin; Below Low 9.0 g/dL 13.0-17.7 Threshold (test code = 718-7) Hematocrit; Below Low 28.7 % 37.5-51.0 Threshold (test code = 4544-3) MCV (test code = 787-2) 91 fL 79-97 MCH (test code = 785-6) 28.5 pg 26.6-33.0 MCHC; Below Low Threshold 31.4 g/dL 31.5-35.7 (test code = 786-4) RDW; Above High Threshold 21.0 % 12.3-15.4 (test code = 788-0) Platelets; Above High 677 {x10E3/uL} 150-450 Threshold (test code = 777-3) Neutrophils (test code = 57 % Not Estab. 770-8) Lymphs (test code = 736-9) 31 % Not Estab. Monocytes (test code = 8 % Not Estab. 5905-5) Eos (test code = 713-8) 3 % Not Estab. Basos (test code = 706-2) 1 % Not Estab. Immature Cells (test code = See Comment Immature Cells) Neutrophils (Absolute) (test 4.3 {x10E3/uL} 1.4-7.0 code = 751-8) Lymphs (Absolute) (test code 2.3 {x10E3/uL} 0.7-3.1 = 731-0) Monocytes(Absolute) (test 0.6 {x10E3/uL} 0.1-0.9 code = 742-7) Eos (Absolute) (test code = 0.2 {x10E3/uL} 0.0-0.4 711-2) Baso (Absolute) (test code = 0.0 {x10E3/uL} 0.0-0.2 704-7) Immature Granulocytes (test 0 % Not Estab. code = 89110-6) Immature Grans (Abs) (test 0.0 {x10E3/uL} 0.0-0.1 code = 67363-5) NRBC (test code = 88635-8) See Comment Hematology Comments: (test See Comment code = 18693-3) [facility]] VITAMIN D, 25-HYDROXY, LC/MS/[id number] 00:00:00 Test Item Value Reference Range Interpretation Comments Vitamin D, 12.4 ng/mL 30.0-100.0 Vitamin D defic iency has 25-Hydroxy; Below been defin ed by the Low Threshold (test [facility] and code = 01350-8) an Endocrine Society practice guidel ine as alevel of serum 25-OH vitamin D less than 20 ng/mL (1,2).The Endocrine Socie ty went on to further d efine vitamin Dinsuff iciency as a level betw een 21 and 29 ng/mL (2 ).1. IOM ([place] [employer] [facility] ed[employer]). 2010. Dietary r eference intakes for josé antonio cium and D. Macros D C: The National Academ ies Press.2. Bradley BENAVIDEZ, Tatum PAYAN, Faraz BLANCHARD, et al. Evaluation, treatment, and prevention of v itamin D deficiency: an Endocrine Society clinica l practice guidel ine. JCEM. 2010; 96(7):1911-30. [facility]] [id number] 00:00:00 Test Item Value Reference Range Interpretation Comments LDH; Above High Threshold (test 264 {IU/L} 121-224 code = 2532-0) [facility]] BILIRUBIN, [id number] 00:00:00 Test Item Value Reference Range Interpretation Comments Bilirubin, Direct; Above High 0.56 mg/dL 0.00-0.40 Threshold (test code = 1968-7) [facility]] [id number] 00:00:00 Test Item Value Reference Range Interpretation Comments Ferritin, Serum; Above High 1752 ng/mL 30-400 Threshold (test code = 2276-4) [facility]] RETICULOCYTE [id number] 00:00:00 Test Item Value Reference Range Interpretation Comments Reticulocyte Count; Above High 5.7 % 0.6-2.6 Threshold (test code = 38911-3) [facility]] MICROALBUMIN, RANDOM URINE (W/CREATININE)2019-06-15 00:00:00 Test Item Value Reference Range Interpretation Comments Creatinine, Urine 85.1 mg/dL Not Estab. (test code = 2161-8) Microalbumin, 43.5 ug/mL Not Estab. Urine (test code = 16203-6) Microalb/Creat 51.1 {mg/g creat} 0.0-30.0 Normal: 0.0 - 30.0 Ratio (test code Albuminuria : 31.0 - = Microalb/Creat 300.0 Clini josé antonio Ratio) albuminuria: >3 00.0 [facility][L] Hgb Frac. [id number] 00:00:00 Test Item Value Reference Range Interpretation Comments Hgb Solubility; Positive Negative A Abnormal (test code = 6864-3) Hgb F; Above High 6.4 % 0.0-2.0 Threshold (test code = 4576-5) Hgb A; Below Low 16.4 % 96.4-98.8 Threshold (test code = 4546-8) Hgb S; Above High 73.1 % >0.0 Threshold (test code = 4625-0) Hgb C (test code = 0.0 % >0.0 4563-3) Hgb A2; Above High 4.1 % 1.8-3.2 Threshold (test code = 74138-0) Hgb Variant (test code 0.0 % >0.0 = 57914-9) Interpretation (test Note: Hemoglo bin pattern and code = 62321-0) concentratio ns are consistent with transfusionof a homozygous Hgb S patient. [facility][L] Drug Profile, Ur, 9 [id number] 00:00:00 Test Item Value Reference Range Interpretation Comments Amphetamines, Urine Negative Chrmqf=5229 Amphetam ine test (test code = 69101-0) includ es Amphetamine and Methamphetamine . Barbituate (test code Negative Vxdqif=370 = 13724-3) Benzodiazepines (test Negative Wcwplg=148 code = 3390-2) Cannabinoid (test code See Final Cutoff=50 = 36984-9) Results Cannabinoid (test code Positive Cutoff=50 A = Cannabinoid) Carboxy THC GC/MS Conf 200 ng/mL Cutoff=15 (test code = Carboxy THC GC/MS Conf) Cocaine (Metab.) (test Negative Alisiq=401 code = 3393-6) Opiates (test code = Negative Rmjqhn=328 Opiate test 3879-4) includes Codein e and Morphine only. Phencyclidine (test Negative Cutoff=25 code = 3936-2) Methadone Screen, Negative Yabxbc=862 Urine (test code = 35180-8) Propoxyphene, Urine Negative Uvjzbe=845 (test code = 10473-9) [facility]
[2022-07-25] MEDS ORDERED: FOLIC ACID 5 MG/ML VIAL ONE (13:12)
[2022-07-25] MEDS ORDERED: NA CHLORIDE 0.9% 1,000 ML ONE (13:12)
[2022-07-25 13:15] LABS: Urine Blood 1+ (Negative); Urine Glucose Negative (Negative); Urine Protein 2+ (Negative); Urine pH 5.5 (5.0-7.0)
--- NOTE | 2022-07-25 13:22 | RAD REPORT ---
EXAM DESCRIPTION: RAD - Chest Pa And Lat (2 Views) - 07/25/2022 1:15 pm CLINICAL HISTORY: COUGH Chest pain. COMPARISON: Chest Single View dated 09/12/2018; CHEST PA AND LAT 2 VIEW dated 07/01/2011 FINDINGS: The lungs are clear. The heart is normal in size. No displaced fractures. IMPRESSION: No acute or concerning finding suspected.
[2022-07-25 13:50] LABS: Absolute Lymphocytes (CBC) 3.5 K/uL (0.7-4.9); Hematocrit 22.4 % (39.6-49.0); MCV 86.4 fL (80-100); MPV 6.8 fL (7.6-11.3); RBC Red Blood Cell Count 2.59 M/uL (4.33-5.43)
[2022-07-25] MEDS ORDERED: HYDROMORPHONE HCL 1 MG/ML INJ ONE (14:06)
[2022-07-25 14:13] LABS: Albumin 4.4 g/dL (3.4-5.0); Bilirubin Total 3.3 mg/dL (0.2-1.0); Potassium 3.5 mmol/L (3.5-5.1); Protein, Total 8.1 g/dL (6.4-8.2); Troponin High Sensitivity 5.7 pg/mL (<58.9)
[2022-07-25 14:43] LABS: SARS-COV-2 RT PCR NEGATIVE (NEGATIVE)
--- NOTE | 2022-07-25 14:49 | ER ---
Nurse's Notes [facility] Name: Justin Baugh Age: 22 yrs Sex: Male : 2000 Arrival Date: 07/25/2022 Time: 12:54 Bed 23 Private MD: Diagnosis: Other sickle-cell disorders with crisis, unspecified;Pain in left arm;Pain in left leg;Pain in right leg;Anemia, unspecified;Chest pain, unspecified Presentation: 07/25 13:01 Chief complaint: Bilateral leg and left arm pain since this morning, reports feels like hb his usual sickle cell crisis. Coronavirus screen: At this time, the client does not indicate any symptoms associated with coronavirus-19. Ebola Screen: No symptoms or risks identified at this time. Initial Sepsis Screen: Does the patient meet any 2 criteria? No. Patient's initial sepsis screen is negative. Does the patient have a suspected source of infection? No. Patient's initial sepsis screen is negative. Risk Assessment: Do you want to hurt yourself or someone else? Patient reports no desire to harm self or others. Onset of symptoms was July 25, 2022. 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 - Social history:: Smoking status: unknown. - Family history:: not pertinent. Screenin:01 [facility] ED Fall Risk Assessment (Adult) History of falling in the last 3 months, em6 including since admission No falls in past 3 months (0 pts) Confusion or Disorientation No (0 pts) Intoxicated or Sedated No (0 pts) Impaired Gait No (0 pts) Mobility Assist Device Used No (0 pt) Altered Elimination No (0 pt) Score/Fall Risk Level 0 - 2 = Low Risk Oriented to surroundings, Maintained a safe environment, Educated pt \T\ family on fall prevention, incl call for assistance when getting out of bed, Assessed \T\ reinforced patient's understanding of fall precautions, Hourly rounding (assess needs \T\ fall precautionary measures) done, Used ambulatory aids as needed (educated on \T\ assisted with), Used gait belt as appropriate. Abuse screen: Denies threats or abuse. Nutritional screening: No deficits noted. Tuberculosis screening: No symptoms or risk factors identified. Assessment: 13:00 General: Appears in no apparent distress. Behavior is cooperative. Pain: Complains of em6 pain in left arm, right leg and left leg Pain does not radiate. Pain currently is 9 out of 10 on a pain scale. Neuro: Level of Consciousness is awake, alert, obeys commands, Oriented to person, place, time, situation. Cardiovascular: Patient's skin is warm and dry. Respiratory: Airway is patent Respiratory effort is even, unlabored, Respiratory pattern is regular, symmetrical. GI: No signs and/or symptoms were reported involving the gastrointestinal system. : No signs and/or symptoms were reported regarding the genitourinary system. EENT: No signs and/or symptoms were reported regarding the EENT system. Derm: No signs and/or symptoms reported regarding the dermatologic system. Musculoskeletal: Circulation, motion, and sensation intact. Range of motion: intact in all extremities. 14:00 Reassessment: Patient states symptoms have not improved. Reassessment: patient is em6 stating pain. notified provider new order given. Pain: Complains of pain in left arm, right leg and left leg Pain does not radiate. Pain currently is 10 out of 10 on a pain scale. Neuro: Level of Consciousness is awake, alert, obeys commands, Oriented to person, place, time, situation. Respiratory: Airway is patent Respiratory effort is even, unlabored, Respiratory pattern is regular, symmetrical. 15:00 Reassessment: Patient appears in no apparent distress at this time. No changes from em6 previously documented assessment. Patient and/or family updated on plan of care and expected duration. Pain level reassessed. Patient is alert, oriented x 3, equal unlabored respirations, skin warm/dry/pink. 16:00 Reassessment: Patient appears in no apparent distress at this time. No changes from em6 previously documented assessment. Patient and/or family updated on plan of care and expected duration. Pain level reassessed. Patient is alert, oriented x 3, equal unlabored respirations, skin warm/dry/pink. 17:00 Reassessment: Patient appears in no apparent distress at this time. No changes from em6 previously documented assessment. Patient and/or family updated on plan of care and expected duration. Pain level reassessed. Patient is alert, oriented x 3, equal unlabored respirations, skin warm/dry/pink. Vital Signs: 13:01 BP 124 / 60; Pulse 68; Resp 16; Temp 98.4(TE); Pulse Ox 100% on R/A; Weight 68.04 kg; hb Height 5 ft. 6 in. (167.64 cm); Pain 10/10; 14:05 BP 133 / 76; Pulse 100; Resp 18; Pulse Ox 96% on 1 lpm NC; em6 15:15 BP 147 / 69; Pulse 100; Resp 20; Pulse Ox 98% on 1 lpm NC; em6 16:00 BP 125 / 65; Pulse 96; Resp 18; Pulse Ox 99% on 1 lpm NC; em6 17:00 BP 114 / 66; Pulse 94; Resp 18; Pulse Ox 99% on 1 lpm NC; em6 13:01 Body Mass Index 24.21 (68.04 kg, 167.64 cm) hb ED Course: 12:54 Patient arrived in ED. as 12:56 Jeffrey Wu MD is Attending Physician. melvin 12:59 Jessica Lincoln, RN is Primary Nurse. em6 13:01 Bed in low position. Call light in reach. Side rails up X 1. Pulse ox on. NIBP on. Warm em6 blanket given. 13:01 Arm band placed on. em6 13:03 Triage completed. hb 13:16 Chest Pa And Lat (2 Views) XRAY In Process Unspecified. EDMS 13:20 Missed attempt(s): 20 gauge in right antecubital area. Bleeding controlled, band aid em6 applied, catheter tip intact. 13:21 Missed attempt(s): 22 gauge in right hand. Bleeding controlled, band aid applied, em6 catheter tip intact. 13:38 Missed attempt(s): 22 gauge in right antecubital area. Bleeding controlled, band aid aa5 applied, catheter tip intact. 13:40 Initial lab(s) drawn, by me, sent to lab. Inserted saline lock: 20 gauge in right aa5 forearm, using aseptic technique. Blood collected. 14:48 Major Fraser MD is Hospitalizing Provider. melvin 17:53 No provider procedures requiring assistance completed. Patient admitted, IV remains in em6 place. Administered Medications: 13:40 Drug: foLIC Acid 1 mg Route: IVPB; Site: right forearm; em6 14:00 Follow up: Response: No adverse reaction em6 13:40 Drug: NS 0.9% 1000 ml Route: IV; Rate: 1 bolus; Site: right forearm; em6 15:00 Follow up: Response: No adverse reaction; IV Status: Completed infusion; IV Intake: em6 1000ml 13:40 Drug: morphine 4 mg Route: IVP; Infused Over: 4 mins; Site: right forearm; em6 16:03 Follow up: Response: No adverse reaction; RASS: Alert and Calm (0) em6 13:40 Drug: Zofran (Ondansetron) 4 mg Route: IVP; Site: right forearm; em6 14:00 Follow up: Response: No adverse reaction em6 14:07 Drug: Zofran (Ondansetron) 4 mg Route: IVP; Site: right forearm; em6 15:00 Follow up: Response: No adverse reaction em6 14:08 Drug: Dilaudid (HYDROmorphone) 1 mg Route: IVP; Site: right forearm; em6 15:00 Follow up: Response: No adverse reaction; RASS: Alert and Calm (0) em6 Medication: 17:54 VIS not applicable for this client. em6 Intake: 15:00 IV: 1000ml; Total: 1000ml. em6 Outcome: 14:49 Decision to Hospitalize by Provider. melvin 17:54 Admitted to Med/surg accompanied by tech, via wheelchair, room 404, with oxygen, with em6 chart, Report called to rosa 17:54 Condition: stable 18:23 Patient left the ED. em6 Signatures: Dispatcher [employer] EDOH Jeffrey Wu MD MD cha Martinez, Amelia as Calderon, Audri, RN RN aa5 Chayo Retana RN RN Jessica Garibay RN RN em6 Corrections: (The following items were deleted from the chart) 13:52 13:20 Missed attempt(s): 20 gauge in right antecubital area. em6 em6
--- NOTE | 2022-07-25 14:49 | EDPHYS ---
Physician Documentation [facility] Name: Justin Baugh Age: 22 yrs Sex: Male : 2000 Arrival Date: 07/25/2022 Time: 12:54 Bed 23 Private MD: JOHN Physician Jeffrey Wu HPI: 07/25 14:40 This 22 yrs old Black Male presents to ER via Ambulatory with complaints of Sickle Cell melvin Crisis. 14:40 The patient or guardian complains of pain. The complaints affect the left bicep, dorsal melvin aspect of left forearm, left tricep and palmar aspect of left forearm. Context: The problem was sustained at an unknown location. Onset: The symptoms/episode began/occurred 1 day(s) ago. Treatment prior to arrival includes: no previous treatment. Modifying factors: The symptoms are alleviated by nothing. the symptoms are aggravated by nothing. The patient presents with pain, tenderness. The complaints affect the right leg and left leg. Context: The problem was sustained at an unknown site. Modifying factors: The symptoms are alleviated by nothing. remaining still, the symptoms are aggravated by movement. 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 - Social history:: Smoking status: unknown. - Family history:: not pertinent. ROS: 14:40 Constitutional: Negative for fever, chills, and weight loss, Eyes: Negative for injury, melvin pain, redness, and discharge, ENT: Negative for injury, pain, and discharge, Neck: Negative for injury, pain, and swelling, Cardiovascular: Negative for chest pain, palpitations, and edema, Respiratory: Negative for shortness of breath, cough, wheezing, and pleuritic chest pain, Abdomen/GI: Negative for abdominal pain, nausea, vomiting, diarrhea, and constipation, Back: Negative for injury and pain, : Negative for injury, bleeding, discharge, and swelling, Skin: Negative for injury, rash, and discoloration, Neuro: Negative for headache, weakness, numbness, tingling, and seizure, Psych: Negative for depression, anxiety, suicide ideation, homicidal ideation, and hallucinations, Allergy/Immunology: Negative for hives, rash, and allergies, Endocrine: Negative for neck swelling, polydipsia, polyuria, polyphagia, and marked weight changes, Hematologic/Lymphatic: Negative for swollen nodes, abnormal bleeding, and unusual bruising. 14:40 MS/extremity: Positive for decreased range of motion, pain, of the left arm, right leg and left leg. 14:40 Neuro: Negative for altered mental status, dizziness, headache. Exam: 14:40 Constitutional: This is a well developed, well nourished patient who is awake, alert, melvin and in no acute distress. Head/Face: Normocephalic, atraumatic. Eyes: Pupils equal round and reactive to light, extra-ocular motions intact. Lids and lashes normal. Conjunctiva and sclera are non-icteric and not injected. Cornea within normal limits. Periorbital areas with no swelling, redness, or edema. ENT: Nares patent. No nasal discharge, no septal abnormalities noted. Tympanic membranes are normal and external auditory canals are clear. Oropharynx with no redness, swelling, or masses, exudates, or evidence of obstruction, uvula midline. Mucous membranes moist. Neck: Trachea midline, no thyromegaly or masses palpated, and no cervical lymphadenopathy. Supple, full range of motion without nuchal rigidity, or vertebral point tenderness. No Meningismus. Chest/axilla: Normal chest wall appearance and motion. Nontender with no deformity. No lesions are appreciated. Respiratory: Lungs have equal breath sounds bilaterally, clear to auscultation and percussion. No rales, rhonchi or wheezes noted. No increased work of breathing, no retractions or nasal flaring. Abdomen/GI: Soft, non-tender, with normal bowel sounds. No distension or tympany. No guarding or rebound. No evidence of tenderness throughout. Back: No spinal tenderness. No costovertebral tenderness. Full range of motion. Male : Normal genitalia with no discharge or lesions. Skin: Warm, dry with normal turgor. Normal color with no rashes, no lesions, and no evidence of cellulitis. Neuro: Awake and alert, GCS 15, oriented to person, place, time, and situation. Cranial nerves II-XII grossly intact. Motor strength 5/5 in all extremities. Sensory grossly intact. Cerebellar exam normal. Normal gait. Psych: Awake, alert, with orientation to person, place and time. Behavior, mood, and affect are within normal limits. 14:40 Chest/axilla: Inspection: normal, no acute changes, Palpation: is normal, no crepitus, no tenderness, Axilla: are normal, no acute changes. 14:40 ECG was reviewed by the Attending Physician. 14:45 Cardiovascular: Rate: normal, Rhythm: regular, Pulses: Pulses are 4+ in bilateral melvin radial, brachial, femoral, popliteal, posterior tibial and and dorsalis pedis arteries.. Heart sounds: normal, normal S1and S2, no S3 or S4, no murmur, no rub, no gallop, murmur, not appreciated, rub, not appreciated, gallop, not appreciated, click tricupid. Vital Signs: 13:01 BP 124 / 60; Pulse 68; Resp 16; Temp 98.4(TE); Pulse Ox 100% on R/A; Weight 68.04 kg; hb Height 5 ft. 6 in. (167.64 cm); Pain 10/10; 14:05 BP 133 / 76; Pulse 100; Resp 18; Pulse Ox 96% on 1 lpm NC; em6 15:15 BP 147 / 69; Pulse 100; Resp 20; Pulse Ox 98% on 1 lpm NC; em6 16:00 BP 125 / 65; Pulse 96; Resp 18; Pulse Ox 99% on 1 lpm NC; em6 17:00 BP 114 / 66; Pulse 94; Resp 18; Pulse Ox 99% on 1 lpm NC; em6 13:01 Body Mass Index 24.21 (68.04 kg, 167.64 cm) hb MDM: 12:57 Patient medically screened. [facility] 14:45 Data reviewed: vital signs, nurses notes, lab test result(s), EKG, radiologic studies, [facility] plain films. 07/25 13:00 Order name: CBC with Diff [facility] 07/25 13:00 Order name: Comprehensive Metabolic Panel; Complete Time: 14:33 [facility] 07/25 13:00 Order name: Retic Count [facility] 07/25 13:00 Order name: COVID-19/FLU A+B [facility] 07/25 13:00 Order name: Troponin High Sensitivity; Complete Time: 14:33 [facility] 07/25 13:15 Order name: Urine Dipstick-Ancillary; Complete Time: 14:33 [facility] 07/25 13:00 Order name: Chest Pa And Lat (2 Views) XRAY; Complete Time: 14:33 [facility] 07/25 15:16 Order name: Manual Differential [facility] 07/25 15:42 Order name: CBC with Automated Diff [facility] 07/25 15:42 Order name: CBC with Automated Diff [facility] 07/25 15:42 Order name: Comprehensive Metabolic Panel [facility] 07/25 15:42 Order name: Comprehensive Metabolic Panel [facility] 07/25 15:54 Order name: Blood Culture [facility] 07/25 13:00 Order name: Urine Dipstick-Ancillary (obtain specimen); Complete Time: 13:53 [facility] 07/25 13:00 Order name: Oxygen Per Protocol; Complete Time: 13:02 [facility] 07/25 13:00 Order name: EKG; Complete Time: 13:01 [facility] 07/25 13:00 Order name: EKG - Nurse/Tech; Complete Time: 13:14 [facility] 07/25 15:42 Order name: Regular EDMS EC:40 Rate is 85 beats/min. Rhythm is regular. QRS [place] is Normal. MD interval is normal. QRS melvin interval is normal. QT interval is normal. No Q waves. T waves are Normal. No ST changes noted. Clinical impression: NSR w/ Non-specific ST/T Changes and LVH. Interpreted by me. Reviewed by me. Administered Medications: 13:40 Drug: foLIC Acid 1 mg Route: IVPB; Site: right forearm; em6 14:00 Follow up: Response: No adverse reaction em6 13:40 Drug: NS 0.9% 1000 ml Route: IV; Rate: 1 bolus; Site: right forearm; em6 15:00 Follow up: Response: No adverse reaction; IV Status: Completed infusion; IV Intake: em6 1000ml 13:40 Drug: morphine 4 mg Route: IVP; Infused Over: 4 mins; Site: right forearm; em6 16:03 Follow up: Response: No adverse reaction; RASS: Alert and Calm (0) em6 13:40 Drug: Zofran (Ondansetron) 4 mg Route: IVP; Site: right forearm; em6 14:00 Follow up: Response: No adverse reaction em6 14:07 Drug: Zofran (Ondansetron) 4 mg Route: IVP; Site: right forearm; em6 15:00 Follow up: Response: No adverse reaction em6 14:08 Drug: Dilaudid (HYDROmorphone) 1 mg Route: IVP; Site: right forearm; em6 15:00 Follow up: Response: No adverse reaction; RASS: Alert and Calm (0) em6 Disposition Summary: 07/25/22 14:49 Hospitalization Ordered Hospitalization Status: Inpatient Admission melvin Provider: Major Fraser cha Location: Telemetry/MedSurg (Inpatient) melvin Condition: Stable melvin Problem: new melvin Symptoms: have improved melvin Bed/Room Type: Standard [facility] Room Assignment: 404(07/25/22 16:20) dw Diagnosis - Other sickle-cell disorders with crisis, unspecified melvin - Pain in left arm melvin - Pain in left leg melvin - Pain in right leg melvin - Anemia, unspecified melvin - Chest pain, unspecified melvin Forms: - Medication Reconciliation Form melvin - SBAR form melvin Signatures: Dispatcher [employer] Ros Farley RN RN dw Anderson, Corey, MD MD cha Baxter, Heather, RN RN hb Martinez, Erika, RN RN em6 Corrections: (The following items were deleted from the chart) 16:20 14:49 melvin curiel
[2022-07-25 15:17] LABS: Anisocytosis 2+; Blood Morphology Comment NOTED (NOT SEEN); Platelet Estimate ADEQ
[2022-07-25] MEDS ORDERED: ONDANSETRON 4 MG/2 ML VIAL IV PRN (15:38)
[2022-07-25] MEDS ORDERED: MORPHINE 2 MG/ML SYR IV PRN (15:38)
[2022-07-25] MEDS ORDERED: NALOXONE 0.4 MG/ML VIAL IV PRN (15:40)
[2022-07-25] MEDS ORDERED: HYDROMORPHONE/PCA 10 MG/50 ML SYR IV PRN (15:40)
--- NOTE | 2022-07-25 15:49 | P.HP ---
Certification for Inpatient With expected LOS: >2 Midnights Patient will require the following post-hospital care: None Practitioner: I am a practitioner with admitting privileges, knowledge of patient current condition, hospital course, and medical plan of care. Services: Services provided to patient in accordance with Admission requirements found in Title 42 Section 412.3 of the Code of Federal Regulations Patient History Date of Service: 07/25/22 Reason for admission: Pain in lower extremities and upper extremities sickle cell crisis History of Present Illness: Patient is 22 years of age with a history of sickle cell disease M sick recently started complaining of severe pain in his arms and legs. The hospital his last relapse was in September patient takes multiple medication at home including hydroxyurea and folic acid eyes any fever chills cough phlegm or urinary tract symptom - Past Medical/Surgical History -: Sickle cell crisis -: Avascular necrosis of left shoulder Review of Systems 10-point ROS is otherwise unremarkable General: Weakness Musculoskeletal: As per HPI Physical Examination - Vital Signs Temperature: 98.4 F Blood Pressure: 124/60 Pulse: 68 Respirations: 16 Pulse Ox (%): 100 - Physical Exam General: Alert, Moderate distress HEENT: Atraumatic Neck: Supple Respiratory: Clear to auscultation bilaterally Cardiovascular: No edema, Regular rate/rhythm, Normal S1 S2 Gastrointestinal: Normal bowel sounds, Soft and benign Musculoskeletal: No clubbing, No swelling Integumentary: No rashes, No breakdown Neurological: Normal strength at 5/5 x4 extr, Cranial nerves 3-12 intact - Studies Laboratory Data (last 24 hrs) 07/25/22 13:40: Sodium 136, Potassium 3.5, BUN 12, Creatinine 0.64 L, Glucose 128 H, Total Bilirubin 3.3 H, AST 68 H, ALT 36, Alkaline Phosphatase 104 07/25/22 13:40: WBC 17.40 H, Hgb 8.1 L, Hct 22.4 L, Plt Count 330 Assessment and Plan - Problems (Diagnosis) (1) Sickle cell crisis Current Visit: Yes Status: Acute Plan: Patient is 22 years of age admitted with pain in lower extremities and upper extremities history of sickle cell disease last crisis was in September this year chest x-ray is clear labs reviewed patient's white count is elevated urine shows 1+ blood and mild proteinuria bilirubin and AST are elevated patient is mildly anemic plan to admit IV fluids hydration start with p.o. antibiotic diet - Advance Directives Does patient have a Living Will: No Does patient have a Durable POA for Healthcare: No
[2022-07-25] MEDS: HYDROMORPHONE HCL 2 MG/ML inj IV PRN ×3 (17:35→22:50)
[2022-07-25] MEDS ORDERED: HYDROMORPHONE HCL 2 MG/ML inj ONE (17:35)
[2022-07-25] MEDS: NA CHLORIDE 0.9% 1,000 ML IV SCH ×2 (18:25→22:49)
[2022-07-25] MEDS: Levofloxacin 750mg IV 750 MG/150 ML BAG IV SCH (18:25)
[2022-07-25] MEDS: NAPROXEN 250 MG TAB PO PRN (18:28)
[2022-07-25 19:37] VITALS: BMI 25.2
[2022-07-26] MEDS: HYDROMORPHONE HCL 2 MG/ML inj IV PRN ×11 (01:56→23:53)
[2022-07-26 06:18] LABS: Absolute Lymphocytes (CBC) 2.3 K/uL (0.7-4.9); Lymphocytes % 22.4 % (15.3-44.8); MCV 86.4 fL (80-100); RBC Red Blood Cell Count 2.38 M/uL (4.33-5.43)
[2022-07-26 06:33] LABS: Hematocrit 20.5 % (39.6-49.0)
[2022-07-26 06:55] LABS: Albumin 3.8 g/dL (3.4-5.0); Potassium 3.7 mmol/L (3.5-5.1); Protein, Total 7.1 g/dL (6.4-8.2)
[2022-07-26] MEDS ORDERED: levoFLOXacin 250 MG TAB PO SCH (09:00)
[2022-07-26] MEDS: ENOXAPARIN 40 MG/0.4 ML SQ SCH (09:00)
--- NOTE | 2022-07-26 11:02 | P.PN ---
Subjective Date of Service: 07/26/22 Chief Complaint: Sickle cell crisis Subjective: Improving (Proving his deep muscular pain in lower extremities also improving slight decrease in his hemoglobin) Review of Systems General: Weakness Musculoskeletal: Leg Pain Physical Examination - Vital Signs Temperature: 99.1 F Blood Pressure: 118/67 Pulse: 95 Respirations: 16 Pulse Ox (%): 90 - Physical Exam General: Alert, In no apparent distress, Oriented x3 Respiratory: Clear to auscultation bilaterally, Diminished Cardiovascular: No edema, Regular rate/rhythm - Studies Laboratory Data (last 24 hrs) 07/25/22 13:40: Sodium 136, Potassium 3.5, BUN 12, Creatinine 0.64 L, Glucose 128 H, Total Bilirubin 3.3 H, AST 68 H, ALT 36, Alkaline Phosphatase 104 07/25/22 13:40: WBC 17.40 H, Hgb 8.1 L, Hct 22.4 L, Plt Count 330 Assessment And Plan - Current Problems (Diagnosis) (1) Sickle cell crisis Current Visit: Yes Status: Acute Plan: Patient is 22 years of age admitted with sickle cell colitis he is steadily improving as patient had a decrease in his hemoglobin refused blood transfusion due to iron overload check his ferritin levels today cultures are so far pending he is on IV antibiotic labs reviewed white count has declined to 10 hemoglobin declined to 7.5 oxygenation satisfactory on room air is 99% Discharge Plan: Home Plan to discharge in: 48 Hours
[2022-07-26] MEDS: NA CHLORIDE 0.9% 1,000 ML IV SCH ×2 (11:46→23:53)
[2022-07-26 15:55] LABS: Ferritin 1968.4 ng/mL (26-388)
--- NOTE | 2022-07-26 16:07 | EKG ---
Test Date: 2022-07-25 Test Time: 13:08:18 Campaign Advisor: [employer] ME[employer]UREMENT RESULTS: Intervals: Rate: 85 UT: 168 QRSD: 94 QT: 376 QTc: 447 [place]: P: 62 UT: 168 QRS: -3 T: -9 INTERPRETIVE STATEMENTS: Normal sinus rhythm Voltage criteria for left ventricular hypertrophy Abnormal ECG Compared to ECG 09/12/2018 21:04:25 Left ventricular hypertrophy now present Sinus arrhythmia no longer present T-wave abnormality no longer present Electronically Signed On 07-26-22 16:05:17 [employer] by Oleksandr Bill
[2022-07-26] MEDS: Levofloxacin 750mg IV 750 MG/150 ML BAG IV SCH (16:39)
[2022-07-26] MEDS: NAPROXEN 250 MG TAB PO PRN (19:50)
[2022-07-26] MEDS: HYDROCODONE/APAP 10/325 TAB PO PRN (22:00)
[2022-07-27] MEDS: HYDROMORPHONE HCL 2 MG/ML inj IV PRN ×11 (01:58→22:26)
[2022-07-27] MEDS: NA CHLORIDE 0.9% 1,000 ML IV SCH ×3 (02:01→23:28)
[2022-07-27 04:03] LABS: MCV 86.8 fL (80-100); MPV 7.3 fL (7.6-11.3); RBC Red Blood Cell Count 2.37 M/uL (4.33-5.43)
[2022-07-27 04:04] LABS: Hematocrit 20.5 % (39.6-49.0)
[2022-07-27 04:20] LABS: Albumin 3.9 g/dL (3.4-5.0); Potassium 3.7 mmol/L (3.5-5.1); Protein, Total 7.4 g/dL (6.4-8.2)
[2022-07-27 04:23] LABS: Bilirubin Total 5.6 mg/dL (0.2-1.0)
[2022-07-27] MEDS: ENOXAPARIN 40 MG/0.4 ML SQ SCH (08:06)
--- NOTE | 2022-07-27 16:24 | P.PN ---
Subjective Date of Service: 07/27/22 Chief Complaint: Sickle cell crisis Patient states his bodily pains are better but still rates his pain as moderate, 5-6 over 10. No recorded fever. He states he is eating well. Physical Examination - Vital Signs Temperature: 100.4 F Blood Pressure: 115/62 Pulse: 117 Respirations: 18 Pulse Ox (%): 99 - Physical Exam General: Alert, In no apparent distress, Oriented x3 HEENT: Scleral icterus Neck: JVD not distended Respiratory: Clear to auscultation bilaterally, Normal air movement Cardiovascular: No edema, Normal S1 S2, Other (Tachycardia) Capillary refill: <2 Seconds Gastrointestinal: Normal bowel sounds, Soft and benign, Non-distended, No tenderness Musculoskeletal: No swelling, No tenderness Integumentary: No rashes, No cyanosis Neurological: Normal strength at 5/5 x4 extr Assessment And Plan - Current Problems (Diagnosis) (1) Sickle cell crisis Current Visit: Yes Status: Acute (2) Anemia Current Visit: Yes Status: Acute (3) Hyperbilirubinemia Current Visit: Yes Status: Acute - Plan Continue aggressive IV hydration given rising bilirubin. Pain management as needed. Diet as tolerated. Empiric IV Levaquin. Monitor CBC and LFT.
[2022-07-27] MEDS: Levofloxacin 750mg IV 750 MG/150 ML BAG IV SCH (17:24)
[2022-07-27] MEDS: HYDROCODONE/APAP 10/325 TAB PO PRN (23:27)
[2022-07-28] MEDS: HYDROMORPHONE HCL 2 MG/ML inj IV PRN ×10 (00:37→23:41)
[2022-07-28 03:48] LABS: MPV 7.1 fL (7.6-11.3); RBC Red Blood Cell Count 2.16 M/uL (4.33-5.43)
[2022-07-28] MEDS: NA CHLORIDE 0.9% 1,000 ML IV SCH ×3 (04:00→21:55)
[2022-07-28 04:07] LABS: Hematocrit 18.3 % (39.6-49.0)
[2022-07-28 04:19] LABS: Albumin 3.4 g/dL (3.4-5.0); Bilirubin Total 4.5 mg/dL (0.2-1.0); Potassium 3.6 mmol/L (3.5-5.1); Protein, Total 7.1 g/dL (6.4-8.2)
[2022-07-28 04:46] LABS: Anisocytosis 2+; Blood Morphology Comment NOTED (NOT SEEN); Platelet Estimate ADEQ; Polychromasia 2+; Target Cells 3+
[2022-07-28] MEDS: ENOXAPARIN 40 MG/0.4 ML SQ SCH (08:50)
--- NOTE | 2022-07-28 12:40 | P.PN ---
Subjective Date of Service: 07/28/22 Chief Complaint: Sickle cell crisis No major changes in symptoms from yesterday. Hemoglobin dropped to 6.7. No recorded fever. It appears his dark urine color is clearing. Physical Examination - Vital Signs Temperature: 99.5 F Blood Pressure: 106/70 Pulse: 122 Respirations: 20 Pulse Ox (%): 92 - Physical Exam General: In no apparent distress HEENT: Mucous membr. moist/pink Neck: JVD not distended Respiratory: Clear to auscultation bilaterally, Normal air movement Cardiovascular: Normal S1 S2, Other (Tachycardia, hyperdynamic precordium.) Gastrointestinal: Normal bowel sounds, Soft and benign, Non-distended, No tenderness Musculoskeletal: No swelling Integumentary: No rashes Neurological: Normal strength at 5/5 x4 extr Assessment And Plan - Current Problems (Diagnosis) (1) Sickle cell crisis Current Visit: Yes Status: Acute (2) Anemia Current Visit: Yes Status: Acute (3) Hyperbilirubinemia Current Visit: Yes Status: Acute - Plan Bilirubin trended down from yesterday. [place] dropped to 6.7. Repeat H&H. Given history of iron overload, we will avoid transfusion for now until hemoglobin drops to 5 to 6. Continue aggressive IV hydration. Pain management as needed. Diet as tolerated. Empiric IV Levaquin. Monitor CBC and LFT.
[2022-07-28 13:22] LABS: Hematocrit 17.8 % (39.6-49.0)
[2022-07-28] MEDS: Levofloxacin 750mg IV 750 MG/150 ML BAG IV SCH (16:28)
[2022-07-28 20:27] VITALS: O2SAT 93
[2022-07-29] MEDS: HYDROMORPHONE HCL 2 MG/ML inj IV PRN ×4 (02:12→11:23)
[2022-07-29 02:38] LABS: MCV 85.7 fL (80-100); MPV 7.1 fL (7.6-11.3); RBC Red Blood Cell Count 2.12 M/uL (4.33-5.43)
[2022-07-29 02:42] LABS: Hematocrit 18.2 % (39.6-49.0)
[2022-07-29 05:05] LABS: Blood Morphology Comment NOTED (NOT SEEN)
[2022-07-29 05:06] LABS: Anisocytosis 2+; Platelet Estimate ADEQ; Polychromasia 2+; Target Cells 1+
[2022-07-29 05:24] LABS: Albumin 3.5 g/dL (3.4-5.0); Bilirubin Total 4.4 mg/dL (0.2-1.0); Protein, Total 7.7 g/dL (6.4-8.2)
[2022-07-29] MEDS: NA CHLORIDE 0.9% 1,000 ML IV SCH (07:54)
[2022-07-29] MEDS: ENOXAPARIN 40 MG/0.4 ML SQ SCH ×2 (07:55→07:58)
[2022-07-29 08:58] VITALS: TEMP 98
--- NOTE | 2022-07-29 10:51 | P.DS ---
Admission Date: 07/25/22 Discharge Date: 07/29/22 Disposition: ROUTINE DISCHARGE Discharge Condition: FAIR Reason for Admission: Sickle cell crisis - Problems (1) Sickle cell crisis Current Visit: Yes Status: Acute (2) Anemia Current Visit: Yes Status: Acute (3) Hyperbilirubinemia Current Visit: Yes Status: Acute (4) Pneumonia Current Visit: Yes Status: Acute Brief History of Present Illness: Patient is 22 years of age with a history of sickle cell disease. He presented to the emergency department due to severe pain in his arms and legs. Patient reported his last sickle cell crisis episode was in September of this year. He takes multiple medication at home including hydroxyurea and folic acid. He denies any fever chills cough phlegm or urinary tract symptom. Chest x-ray in the ED was clear. Blood work showed anemia and leukocytosis. Patient was hospitalized for further management. Hospital Course: Patient admitted to the medical floor and treated for sickle cell crisis with supportive measures which included IV fluid, IV opioids for pain. He was also treated with IV antibiotics. Urinalysis was negative for UTI, blood culture yielded no growth. There was a drop in his hemoglobin from 8.1 to 6.6. Patient reports history of iron overload and declined blood transfusion. His hemoglobin was stable at 6.6, no further drop. Bilirubin was elevated, his urine was dark. Bilirubin elevation stabilized. He had no fever during the hospital stay, leukocytosis resolved. Patient states he feels much better today, he is eating and ambulating and denies shortness of breath. Repeat chest x-ray shows ill-defined bilateral lower lobe infiltrate. Vitals are stable. Patient is not hypoxic and afebrile. He endorsed significant clinical improvement and feeling close to baseline. Patient is discharged with oral Levaquin to continue treatment for possible pneumonia. He is informed to follow with his hematology oncologist for further management of his sickle cell. He is also informed to go to an emergency department, preferably in a tertiary center should he become sicker, develop shortness of breath or fever for more comprehensive treatment for sickle cell crisis. Vital Signs/Physical Exam: Temp Pulse Resp BP Pulse Ox 98.0 F 119 H 16 128/58 L 91 07/29/22 08:00 07/29/22 08:00 07/29/22 08:00 07/29/22 08:00 07/29/22 08:00 General: Alert, In no apparent distress, Oriented x3 HEENT: Mucous membr. moist/pink, Scleral icterus Neck: JVD not distended Respiratory: Clear to auscultation bilaterally, Normal air movement Cardiovascular: No edema, Regular rate/rhythm, Normal S1 S2 Gastrointestinal: Normal bowel sounds, Soft and benign, Non-distended, No tenderness Musculoskeletal: No swelling Integumentary: No rashes, No cyanosis Neurological: Normal strength at 5/5 x4 extr Laboratory Data at Discharge: WBC 11.20 K/uL (4.3-10.9) H 07/29/22 02:18 Hgb 6.6 g/dL (13.6-17.9) L* 07/29/22 02:18 Hct 18.2 % (39.6-49.0) L* 07/29/22 02:18 Plt Count 327 K/uL (152-406) 07/29/22 02:18 Sodium 133 mmol/L (136-145) L 07/29/22 02:18 Potassium 4.0 mmol/L (3.5-5.1) 07/29/22 02:18 BUN 6 mg/dL (7-18) L 07/29/22 02:18 Creatinine 0.50 mg/dL (0.70-1.30) L 07/29/22 02:18 Glucose 109 mg/dL (74-106) H 07/29/22 02:18 Total Bilirubin 4.4 mg/dL (0.2-1.0) H 07/29/22 02:18 AST 78 U/L (15-37) H 07/29/22 02:18 ALT 76 U/L (16-61) H 07/29/22 02:18 Alkaline Phosphatase 131 U/L (45-117) H 07/29/22 02:18 Home Medications: Folic Acid 0.4 mg PO LUNCH 07/25/22 Gabapentin 300 mg PO DAILY 07/25/22 Hydroxyurea 2,000 mg PO DAILY 07/25/22 Hydrocodone 10/APAP 325 [[place] 10/325*] 1 tab PO Q6HP PRN #15 tab 07/29/22 Naproxen [Naprosyn*] 500 mg PO BID PRN #30 tab 07/29/22 levoFLOXacin [Levaquin*] 750 mg PO Q24H #9 tab 07/29/22 New Medications: Hydrocodone 10/APAP 325 [[place] 10/325*] 1 tab PO Q6HP PRN #15 tab PRN Reason: Pain Scale 5-7 (Moderate) levoFLOXacin [Levaquin*] 750 mg PO Q24H #9 tab Naproxen [Naprosyn*] 500 mg PO BID PRN #30 tab PRN Reason: Pain Scale 2-4 (Mild) Diet: Regular Activity: [place] Followup: NONE,NONE [Primary Care Provider] - 1-2 Weeks (follow up with the [facility] in [place] call for an apointment) Time spent managing pt's care (in minutes): 34
--- NOTE | 2022-07-29 11:24 | RAD REPORT ---
EXAM DESCRIPTION: RAD - Chest Single View - 07/29/2022 11:17 am CLINICAL HISTORY: Sickle cell crisis COMPARISON: Chest Pa And Lat (2 Views) dated 07/25/2022; Chest Single View dated 09/12/2018; CHEST PA AND LAT 2 VIEW dated 07/01/2011 FINDINGS: Lines: None. Lungs: Ill-defined bilateral airspace opacities which are predominantly in the lower lungs. Pleural: No significant pleural effusions or pneumothorax. Cardiac: Cardiomegaly. Mediastinum: Within normal limits. Bones: No acute fractures. Diffusely sclerotic appearance of the osseous structures. Other: None IMPRESSION: New ill-defined bilateral predominantly lower lobe airspace disease could reflect acute chest syndrome. Edema and/or pneumonia could appear similar.
[2022-07-29 12:14] VITALS: BP 120/56
[2022-07-29] MEDS ORDERED: levoFLOXacin 750 MG TAB PO SCH (17:00)
== END 2022-07-29 12:45 | disposition home or self-care (01) | DRG 871 ==
LOC: ER 12:50 → ERHOLD 15:38 → 4TH 16:34
PROVIDERS: ADMIT Internal Medicine Sleep Medicine; ATTEND Internal Medicine
DX: A41.9 Sepsis, unspecified organism (principal); D57.00 Hb-SS disease with crisis, unspecified; J18.9 Pneumonia, unspecified organism; E80.6 Other disorders of bilirubin metabolism
CPT/HCPCS: 0240U; 36415; 71045; 71046; 80053; 81003; 82728; 83540; 84466; 84484; 85014; 85018; 85025; 85027; 85044; 85660; 86850; 86880; 86900; 86901; 86905; 87040; 93005; 96361; 96374; 96375; 99285; J1170; J1650; J2405; J7030

== ENCOUNTER 2022-08-31 20:49 | Emergency (ER) | payer OTHER ==
[2022-08-31] MEDS ORDERED: HYDROMORPHONE HCL 1 MG/ML INJ ONE (21:32)
[2022-08-31] MEDS ORDERED: ONDANSETRON 4 MG/2 ML VIAL ONE (21:32)
[2022-08-31] MEDS ORDERED: FOLIC ACID 5 MG/ML VIAL ONE (21:33)
[2022-08-31] MEDS ORDERED: NA CHLORIDE 0.9% 2,000 ML ONE (21:33)
--- OUTSIDE RECORDS SUMMARY | 2022-08-31 21:37 | XMS REPORT | Continuity of Care Document ---
:2000 Author Organization [facility] t Address [address] [place] [address] Care Team Providers Name Role Phone Maki Harding MD Primary Care Physician TAL DAVIS Attending Clinician Unavailable MAKI HARDING Attending Clinician Unavailable RIN DAVIS Attending Clinician Unavailable CISCO VITAL Attending Clinician Unavailable KARLO JONES Attending Clinician Unavailable XAVIER VORA Attending Clinician Unavailable Brooke Claudio RN Attending Clinician Unavailable GEOVANNI LANGLEY Attending Clinician Unavailable PAO MARTINEZ Attending Clinician Unavailable Jeff Corbett MD Attending Clinician [phone] Estrellita Cano Attending Clinician ESTRELLITA CANO Attending Clinician Unavailable Irina Parks Attending Clinician IRINA PARKS Attending Clinician Unavailable Gavin Pena RN Attending Clinician Unavailable PRACHI CANO Attending Clinician Unavailable Prachi Cano Attending Clinician Cammie Price Attending Clinician CAMMIE PRICE Attending Clinician Unavailable Holli Valera Attending Clinician Unavailable Marianne Guerra RN Attending Clinician Unavailable Kianna Waters RPH Attending Clinician Unavailable Nancy PATHAK, Manuel Avila Attending Clinician Mor PATHAK, Keny Duffy Attending Clinician Yoselin PATHAK, Kota Jackson Attending Clinician [phone] Alice Lincoln MA Attending Clinician Unavailable Kwabena Mariano MD Attending Clinician Nerissa PATHAK, Vanessa Attending Clinician MD VANESSA MULTANI Attending Clinician Unavailable Selwyn JARAMILLO, Pushpa Attending Clinician Unavailable [facility] CLIPPER COUNTERS, Fabi Attending Clinician Unavailable Bettye RN, Yessica Attending Clinician Unavailable Rayo JARAMILLO, Manjula Attending Clinician Unavailable Barbara Harding DO Attending Clinician Rohit PATHAK, Gary Cisneros Attending Clinician Fatemeh Loredo Attending Clinician FATEMEH LOREDO Attending Clinician Unavailable Kim RNLucila Attending Clinician Unavailable Amira RNElsa Attending Clinician Unavailable Al RNAdri Attending Clinician Unavailable Rajat Ash Attending Clinician Unavailable Marianne Keller RN Attending Clinician Unavailable Yajaira Du RN Attending Clinician Unavailable Lazarus JARAMILLO, Eryn Attending Clinician Unavailable Latosha Brooks RN Attending Clinician Unavailable CISCO VITAL M.D. Attending Clinician Unavailable Timothy Vasquez Attending Clinician TIMOTHY VASQUEZ Attending Clinician Unavailable Shlomo Bustillos MD Attending Clinician Pérez Thompson MD Attending Clinician FAHEEM BRIGGS Attending Clinician Unavailable CAIT ALMENDAREZ M.D. Attending Clinician Unavailable SMILEY CHAVEZ Attending Clinician Unavailable FRANCISCO JAVIER SOMMERS Attending Clinician Unavailable Leora King Attending Clinician ERENDIRA KITCHEN Attending Clinician Unavailable Dale Rao Attending Clinician ABELINO GUTIERREZ Admitting Clinician Unavailable Abelino Gutierrez Admitting Clinician KOTA PERRIN Admitting Clinician Unavailable MD KENY MENON Admitting Clinician Unavailable VANESSA MULTANI Admitting Clinician Unavailable MD VANESSA MULTANI Admitting Clinician Unavailable PÉREZ THOMPSON Admitting Clinician Unavailable PATTI EPPS Admitting Clinician Unavailable Payers Payer Name Policy Type Policy Number Effective Date Expiration Date S olivia [employer] [id number] 2021 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 00:00:00 Problems Condition Condition Condition Status Onset Resolution Last Treating Co mments Source Name Details Category Date Date Treatment Clinician Date LIP INJURY LIP Diagnosis Active 2021-082022-06-14 Memoria INJURY 0-05 17:03:00 l Active 00:00: [place] 05/05/2022 00 [facility] SICKLE SICKLE Diagnosis Active 2022-04-20 M emoria CELL CELL 9- 08:22:00 l CRISIS CRISIS 00:00: [place] Active 00 04/19/2022 [facility] SICKLE SICKLE Diagnosis Active 2022-01-11 Me moria CELL CELL 6- 04:41:00 l Active 00:00: [place] 01/11/2022 00 [facility] ACUTE ACUTE Diagnosis Active 2022-04-16 [facility] oria SICKLE SICKLE 01-11 11:38:00 l CELL CELL 00:00: [place] CRISIS CRISIS 00 Active 01/11/2022 [facility] Sickle Sickle Disease Active Methodi [...] LT PAIN, LT RIBC RIBC Active 03/17/2021 [facility] Lymphadeni Lymphadeni Disease Active U [...] 10-23 14:52:00 l 10/23/2020 13:10: Sang nichols [facility] 00 [place] Encounter Encounter Disease Active [facility] for for [...] Disease Active 2018-08 M ethodi a a 0-31 st 00:00: Hospita 00 l Allergic Allergic Disease Active Metho di rhinitis rhinitis 04-15 st 00:00: Hospita 00 l Anemia Anemia Problem Active 2022-05-08 Fred sherlyn (disorder) (disorder) 21:08:20 l Active [place] Problem 05/08/2022 [facility] Hyponatrem Problem Active 2022-05-08 M emoria ia Hyponatrem 21:08:20 l (disorder) ia Sang n (disorder) Active Problem 05/08/2022 [facility] N50.89 - N50.89 - Diagnosis Active 2022-04-09 Memoria OTHER OTHER 14:05:00 l SPECIFIED SPECIFIED Herm shakira DISORDERS DISORDERS OF T OF T Active [facility] Sickle Sickle Disease Active Last Methodi cell cell Assessmen anemia anemia t & Plan: Hospita Formattin [...] R shoulder + L hipStable History of History of Problem Resolve UT [...] Active U T a a Physici ans History of Past Illness Condition Condition Condition Status Onset Resolution Last Treating Co mments Source Name Details Category Date Date Treatment Clinician Date Chest Chest Problem 2022-04-21 2022-04-21 M emoria pain, pain, 04-19 22:19:11 22:19:11 l unspecifie unspecifie 17:26: Joel coulter d d 00 04/19/2022 2 [facility] Hb-SS Hb-SS Problem 2022-04-21 2022-04-21 M emoria disease disease 04-19 22:19:11 22:19:11 l with with 17:26: [place] crisis, crisis, 00 unspecifie unspecifie d d 04/19/2022 2 [facility] Pleurodyni Pleurodyn Problem 2021-01-26 2021-01-26 Memoria a ia 01-24 21:56:01 21:56:01 l 01/24/2021 17:00: Sang nichols 01/26/2021 00 [facility] Headache, Headache, Problem 2021-01-26 2021-01-26 Memoria unspecifie unspecifie 01-24 21:56:01 21:56:01 l d d 17:00: [place] 01/24/2021 00 01/26/2021 [facility] Pain in Pain in Problem 2020-10-25 2020-10-25 Memoria leg, leg, 10-23 22:15:22 22:15:22 l unspecifie unspecifie 17:00: He rmann d d 00 10/23/2020 10/25/2020 [facility] Allergies, Adverse Reactions, Alerts Allergy Allergy Status Severity Reaction(s) Onset Inactive Treating Comm ents Source Name Type Date Date Clinician Cirilo Huston Active Rash Patient Metho di allen ty to 09-[address] adverse 00:00: as Hospita reaction 00 becoming l s to really drug hot, had tachycard ia, a diffuse rash and syncope immediate ly after receiving ceftriaxo ne IV Rocephin Allergy Active [facility] to drug Physici (finding ans ) Rocephin Rocephin Active Memori a l [place] Family History Family Member Diagnosis Comments Start Date Stop Date Source Natural father Diabetes [facility] Natural father Heart attack [facility] Natural father Stroke [facility] Maternal Diabetes [facility] [place] Maternal Hypertension [facility] [place] Natural mother Diabetes [facility] Mother Family history of [facility] sickle cell trait Mother Family history of [facility] diabetes mellitus Mother Family history of [facility] Thalassemia trait Father Family history of [facility] sickle cell trait Father Family history of [facility] hypertension Father Family history of [facility] Thalassemia trait Social History Social Habit Start Date Stop Date Quantity Comments Source History SDOH [facility]ism Alcohol Comment Hospital History SDOH [facility] Alcohol Std Hospital Drinks History SDVT [facility]ism Alcohol Binge Hospital Exposure to 2022-07-06 2022-07-16 Not sure [facility] SARS-CoV-2 00:00:00 09:16:00 (event) Social History 2022-01-12 2022-01-12 [facility] 00:39:44 00:39:44 Alcohol intake 2021-10-26 2021-10-26 Current drinker [facility] dist 00:00:00 00:00:00 of alcohol Hospital (finding) History SDOH 2020-09-22 2020-09-22 1 [facility]ism Alcohol Frequency 00:00:00 00:00:00 Hospita l Tobacco use and 2019-04-16 2019-04-16 Smokeless tobacco Me [facility] exposure 00:00:00 00:00:00 non-user Hospital Sex Assigned At [birth year] [facility] 00:00:00 00:00:00 Smoking Status Start Date Stop Date Source Social History 2019-07-31 04:36:04 [facility] Her reyna Never smoked tobacco [facility]ism H ospital Medications Ordered Filled Start Stop Current Ordering Indication Dosage Frequency Signature Comments Components Source Medication Medication Date Date Medication? Clinician (SIG) Name Name deferasirox 2021-08 Yes [id number] TAKE 3 [facility] (Jadenu) 2-16 TABLET Health 360 MG 00:00: DAILY tablet 00 HYDROcodone 2021-08 Yes [id number] 1{tbl} Q6H Take 1 UT -acetaminop 2-16 tablet by [facility] theodore ([place]) 00:00: mouth 10-325 MG 00 every 6 tablet (six) hours if needed for severe pain. morphine 2021-0 No 4 mg, Memoria Sulfate 9-19 Route: l 16:51: IVP, Drug [place] form: INJ, ONCE, Dosing Weight 68.3, kg, Priority: STAT, Start date: 04/19/22 11:51:00 CDT, Stop date: 04/19/22 11:51:00 CDT morphine 2021-0 No 4 mg, Memoria Sulfate 9-19 Route: l 16:51: IVP, Drug [place] form: INJ, ONCE, Dosing Weight 68.3, kg, Priority: STAT, Start date: 04/19/22 11:51:00 CDT, Stop date: 04/19/22 11:51:00 CDT morphine 2021-0 No 4 mg, Memoria Sulfate 9-19 Route: l 16:51: IVP, Drug [place] form: INJ, ONCE, Dosing Weight 68.3, kg, Priority: STAT, Start date: 04/19/22 11:51:00 CDT, Stop date: 04/19/22 11:51:00 CDT Dilaudid 2021-0 No Notes: Memoria 9-19 (Same as: l 16:29: Dilaudid) [place] 00 ketOROLAC No 4 days Memor ia 15 mg/mL 04-19 l injectable 16:29: MEDICATION H ermann solution 00 WASTE Product Size: 30 mg Product Wasted: ___ mg Dilaudid No Notes: Memoria - (Same as: l 16:29: Dilaudid) [place] ketOROLAC No 4 days Memor ia 15 mg/mL 04-19 l injectable 16:29: MEDICATION H ermann solution 00 WASTE Product Size: 30 mg Product Wasted: ___ mg Dilaudid No Notes: Memoria - (Same as: l 16:29: Dilaudid) [place] 00 ketOROLAC No 4 days Memor ia 15 mg/mL 04-19 l injectable 16:29: MEDICATION H ermann solution 00 WASTE Product Size: 30 mg Product Wasted: ___ mg morphine No Notes: Memoria Sulfate - (Same l 15:06: as:MORPhin [place] 00 e Sulfate) morphine No Notes: Memoria Sulfate - (Same l 15:06: as:MORPhin [place] 00 e Sulfate) morphine No Notes: Memoria Sulfate - (Same l 15:06: as:MORPhin [place] 00 e Sulfate) morphine No Notes: Memoria Sulfate - (Same l 12:09: as:MORPhin [place] 00 e Sulfate) Zofran No Notes: Memoria - (Same as: l 12:09: Zofran) Stiven 00 MEDICATION WASTE Product Size: 4 mg Product Wasted: ___ mg normal No 1,000 mL, Memori a saline 0.9% 04-19 1,000 l (Bolus) IV 12:09: ml/hr, Mignon nn 00 Infuse Over: 1 hr, Route: IV, 1,000, Drug form: INJ, ONCE, Priority: STAT, Dosing Weight 68.3 kg, Start date: 04/19/22 7:09:00 CDT, Stop date: 04/19/22 7:09:00 CDT, 0 morphine 2021-0 No Notes: Memoria Sulfate 04-19 (Same l 12:09: as:MORPhin [place] 00 e Sulfate) Zofran No Notes: Memoria - (Same as: l 12:09: Zofran) [place] 00 MEDICATION WASTE Product Size: 4 mg Product Wasted: ___ mg normal No 1,000 mL, Memori a saline 0.9% - 1,000 l (Bolus) IV 12:09: ml/hr, Mignon nn 00 Infuse Over: 1 hr, Route: IV, 1,000, Drug form: INJ, ONCE, Priority: STAT, Dosing Weight 68.3 kg, Start date: 04/19/22 7:09:00 CDT, Stop date: 04/19/22 7:09:00 CDT, 0 morphine 2021- No Notes: Memoria Sulfate 04-19 (Same l 12:09: as:MORPhin [place] 00 e Sulfate) Zofran No Notes: Memoria 04-19 (Same as: l 12:09: Zofran) Stiven 00 MEDICATION WASTE Product Size: 4 mg Product Wasted: ___ mg normal No 1,000 mL, Memori a saline 0.9% - 1,000 l (Bolus) IV 12:09: ml/hr, Mignon nn 00 Infuse Over: 1 hr, Route: IV, 1,000, Drug form: INJ, ONCE, Priority: STAT, Dosing Weight 68.3 kg, Start date: 04/19/22 7:09:00 CDT, Stop date: 04/19/22 7:09:00 CDT, 0 ketorolac 2021- No 15mg UT (Toradol) 04-06 Health injection 21:30: 20:50 15 mg 00 :00 ketorolac 2021-2021- No 15mg 15 mg, UT (Toradol) 04-06 Intravenou Hea lth injection 21:30: 20:50 s, Once, 15 mg 00 :00 On 9/6/22 at 1630, For 1 dose
In dications: sickle cell pain crisis. sodium 2021- No 500mL/h UT chloride 04-06 Health 0.9 % 21:00: 20:15 infusion 00 :00 sodium 2021-0 2021- No 500mL/h 500 mL/hr, U T chloride 04-06 Intravenou Heal th 0.9 % 21:00: 20:15 s, Once, infusion 00 :00 On Tue04/06/22 at 1600, For 1 dose
In dications: sickle cell pain crisis HYDROcodone Yes [id number] 1{tbl} Q6H Take 1 UT -acetaminop 8-17 tablet by [facility] theodore ([employer]) 00:00: mouth 10-325 MG 00 every 6 tablet (six) hours if needed for severe pain. HYDROcodone Yes [id number] 1{tbl} Q6H Take 1 UT -acetaminop 8-17 tablet by [facility] the[place] ([employer]) 00:00: mouth 10-325 MG 00 every 6 tablet (six) hours if needed for severe pain. HYDROcodone 2021-2021- No [id number] 1{tbl} Q6H Take 1 UT -acetaminop 8-15 08-17 tablet by [facility] hen ([employer]) 00:00: 00:00 mouth 10-325 MG 00 :00 every 6 tablet (six) hours if needed for severe pain. hydroxyurea Yes [id number] TAKE 4 UT (Hydrea) 8-12 CAPSULES Health 500 MG 00:00: DAILY capsule 00 methocarbam 0 Yes [id number] TAKE 1 UT ol 8-12 TABLET Health (Robaxin) 00:00: DAILY 500 MG 00 NEEDED FOR tablet SPASM. hydroxyurea Yes [id number] TAKE 4 UT (Hydrea) 8-12 CAPSULES Health 500 MG 00:00: DAILY capsule 00 methocarbam 0 Yes [id number] TAKE 1 UT ol 8-12 TABLET Health (Robaxin) 00:00: DAILY 500 MG 00 NEEDED FOR tablet SPASM. gabapentin Yes [id number] 300mg Take 1 UT (Neurontin) 8-12 capsule Healt h 300 MG 00:00: (300 mg capsule 00 total) by mouth every night. hydroxyurea Yes [id number] TAKE 4 UT (Hydrea) 8-12 CAPSULES Health 500 MG 00:00: DAILY capsule 00 methocarbam Yes [id number] TAKE 1 UT ol 8-12 TABLET Health (Robaxin) 00:00: DAILY 500 MG 00 NEEDED FOR tablet SPASM. gabapentin 2021- No [id number] 300mg Take 1 UT (Neurontin) 03-12 capsule Heal th 300 MG 00:00: 04:59 (300 mg capsule 00 :00 total) by mouth every night. gabapentin 2021- No [id number] 300mg Take 1 UT (Neurontin) 03-12 capsule Heal th 300 MG 00:00: 04:59 (300 mg capsule 00 :00 total) by mouth every night. levofloxaci Yes 750 mg = 1 Memoria n 750 mg 6-19 tab, PO, l oral tablet 15:12: Daily, X 5 Stiven day, # 5 tab, 0 Refill(s), Pharmacy: [facility] #[id number], 167.64, cm, 01/11/22 19:35:00 CDT, Height, 69.8, kg, 01/11/22 19:35:00 CDT, Weight tramadol 50 Yes 50 mg = 1 M emoria mg oral 6-19 tab, PO, l tablet 15:12: Q6H, X 7 Stiven day, # 28 tab, 0 Refill(s), Pharmacy: [facility] #[id number], 167.64, cm, 01/11/22 19:35:00 CDT, Height, 69.8, kg, 01/11/22 19:35:00 CDT, Weight senna 8.6 Yes 17.2 mg = Mem oria mg oral 6-19 2 tab, PO, l tablet 15:12: Bedtime, X Mignon nn 7 day, # 14 tab, 0 Refill(s), Pharmacy: [facility] #[id number], 167.64, cm, 01/11/22 19:35:00 CDT, Height, 69.8, kg, 01/11/22 19:35:00 CDT, Weight levofloxaci 0 Yes 750 mg = 1 Memoria n 750 mg 6-19 tab, PO, l oral tablet 15:12: Daily, X 5 Stievn 00 day, # 5 tab, 0 Refill(s), Pharmacy: [facility] #[id number], 167.64, cm, 01/11/22 19:35:00 CDT, Height, 69.8, kg, 01/11/22 19:35:00 CDT, Weight tramadol 50 2021-0 Yes 50 mg = 1 M emoria mg oral 6-19 tab, PO, l tablet 15:12: Q6H, X 7 [place] day, # 28 tab, 0 Refill(s), Pharmacy: [facility] #[id number], 167.64, cm, 01/11/22 19:35:00 CDT, Height, 69.8, kg, 01/11/22 19:35:00 CDT, Weight senna 8.6 2021-0 Yes 17.2 mg = Mem oria mg oral 6-19 2 tab, PO, l tablet 15:12: Bedtime, X Mignon 7 day, # 14 tab, 0 Refill(s), Pharmacy: [facility] #[id number], 167.64, cm, 01/11/22 19:35:00 CDT, Height, 69.8, kg, 01/11/22 19:35:00 CDT, Weight levofloxaci 0 Yes 750 mg = 1 Memoria n 750 mg 6-19 tab, PO, l oral tablet 15:12: Daily, X 5 [place] day, # 5 tab, 0 Refill(s), [id number], 167.64, cm, 01/11/22 19:35:00 CDT, Height, 69.8, kg, 01/11/22 19:35:00 CDT, Weight tramadol 50 2021-0 Yes 50 mg = 1 M emoria mg oral 6-19 tab, PO, l tablet 15:12: Q6H, X 7 St[place] day, # 28 tab, 0 Refill(s), Pharmacy: [facility] #[id number], 167.64, cm, 01/11/22 19:35:00 CDT, Height, 69.8, kg, 01/11/22 19:35:00 CDT, Weight senna 8.6 2021-0 Yes 17.2 mg = Mem oria mg oral 6-19 2 tab, PO, l tablet 15:12: Bedtime, X Mignon nn 00 7 day, # 14 tab, 0 Refill(s), Pharmacy: [facility] #[id number], 167.64, cm, 01/11/22 19:35:00 CDT, Height, 69.8, kg, 01/11/22 19:35:00 CDT, Weight [place] 0 Yes 1 tab, PO, Memori a 10/325 oral 6-19 Q6H, PRN l tablet 15:11: Other -See Mignon nn 00 Comment, X 7 day, # 30 tab, 0 Refill(s), Pharmacy: [facility] #[id number], 167.64, cm, 01/11/22 19:35:00 CDT, Height, 69.8, kg, 01/11/22 19:35:00 CDT, Weight Robaxin 500 0 Yes 500 mg = 1 Memoria mg oral 6-19 tab, PO, l tablet 15:11: Q4H, PRN [place] 00 Muscle Spasms, X 5 day, # 60 tab, 0 Refill(s), Pharmacy: [facility] #[id number], 167.64, cm, 01/11/22 19:35:00 CDT, Height, 69.8, kg, 01/11/22 19:35:00 CDT, Weight codeine-gua 0 Yes 10 mL, PO, Memoria iFENesin 10 6-19 Q4H, PRN l mg-100 mg/5 15:11: Cough, X 3 Stiven mL oral 00 day, # 120 syrup mL, 0 Refill(s), Pharmacy: [facility] #[id number], 167.64, cm, 01/11/22 19:35:00 CDT, Height, 69.8, kg, 01/11/22 19:35:00 CDT, Weight [place] 0 Yes 1 tab, PO, Memori a 10/325 oral 6-19 Q6H, PRN l tablet 15:11: Other -See Mignon nn Comment, X 7 day, # 30 tab, 0 Refill(s), Pharmacy: [facility] #[id number], 167.64, cm, 01/11/22 19:35:00 CDT, Height, 69.8, kg, 01/11/22 19:35:00 CDT, Weight Robaxin 500 2021-0 Yes 500 mg = 1 Memoria mg oral 6-19 tab, PO, l tablet 15:11: Q4H, PRN [place] 00 Muscle Spasms, X 5 day, # 60 tab, 0 Refill(s), Pharmacy: [facility] #[id number], 167.64, cm, 01/11/22 19:35:00 CDT, Height, 69.8, kg, 01/11/22 19:35:00 CDT, Weight codeine-gua 2021-0 Yes 10 mL, PO, Memoria iFENesin 10 6-19 Q4H, PRN l mg-100 mg/5 15:11: Cough, X 3 Stiven mL oral 00 day, # 120 syrup mL, 0 Refill(s), Pharmacy: [facility] #[id number], 167.64, cm, 01/11/22 19:35:00 CDT, Height, 69.8, kg, 01/11/22 19:35:00 CDT, Weight [place] 2021-0 Yes 1 tab, PO, Memori a 10/325 oral 6-19 Q6H, PRN l tablet 15:11: Other -See Mignon nn Comment, X 7 day, # 30 tab, 0 Refill(s), Pharmacy: [facility] #[id number], 167.64, cm, 01/11/22 19:35:00 CDT, Height, 69.8, kg, 01/11/22 19:35:00 CDT, Weight Robaxin 500 2021-0 Yes 500 mg = 1 Memoria mg oral 6-19 tab, PO, l tablet 15:11: Q4H, PRN [place] 00 Muscle Spasms, X 5 day, # 60 tab, 0 Refill(s), Pharmacy: [facility] #[id number], 167.64, cm, 01/11/22 19:35:00 CDT, Height, 69.8, kg, 01/11/22 19:35:00 CDT, Weight codeine-gua Yes 10 mL, PO, Memoria iFENesin 10 6-19 Q4H, PRN l mg-100 mg/5 15:11: Cough, X 3 Stiven mL oral 00 day, # 120 syrup mL, 0 Refill(s), Pharmacy: [facility] #[id number], 167.64, cm, 01/11/22 19:35:00 CDT, Height, 69.8, kg, 01/11/22 19:35:00 CDT, Weight magnesium No Notes: Memori a citrate 6-18 (Same as: l 1.745 g/30 14:06: Citrate of H ermann mL oral Magnesia) liquid Concentrat ion: 1.745 gm / 30 mL magnesium No Notes: Memori a citrate 6-18 (Same as: l 1.745 g/30 14:06: Citrate of H ermann mL oral Magnesia) liquid Concentrat ion: 1.745 gm / [...] l 13:39: Imitrex) SUMAtriptan No Notes: Fred shrelyn 6-17 (Same As: l 13:39: Imitrex) potassium [...] s with feeding tube less than 14 Ugandan (Dobhoff, J-tube etc) and pediatric and patients. potassium No Notes: Memori a phosphate-s 6-16 (Same as: l odium 19:39: Phos-NaK) [place] phosphate 00 Each 1.5 250 mg-280 gm pkt has mg-160 mg 250mg oral powder phosphorou for s. Mix reconstitut w/2.5oz ion water and stir. potassium No Notes: Memori a phosphate + 6-16 (Same as: l Sodium 19:39: K [place] Chloride 00 Phosphate. 0.9% IV 250 ) [...] WASTE: F/P l 19:39: - Sink; E [place] - Municipal Trash Bin magnesium No Notes: Memori a oxide 6-16 (Same as: l 19:39: Mag-Ox [place] 00 400) Magnesium oxide 526no=306q g elemental magnesium Dose=____m g magnesium oxide (___mg elemental magnesium) calcium No Notes: Memoria gluconate 6-16 WASTE: F/P l 19:39: - Sink; E [place] 00 - Municipal Trash Bin calcium No [...] s with feeding tube less than 14 [place] (Dobhoff, J-tube etc) and pediatric and patients. potassium No Notes: Memori a phosphate-s 6-16 (Same as: l odium 19:39: Phos-NaK) [place] phosphate 00 Each 1.5 250 mg-280 gm pkt has mg-160 mg 250mg oral powder phosphorou for s. Mix reconstitut w/2.5oz ion water and stir. potassium No Notes: Memori a phosphate + 6-16 (Same as: l Sodium 19:39: K [place] Chloride 00 Phosphate. 0.9% IV 250 ) [...] WASTE: F/P l 19:39: - Sink; E [place] 00 - Municipal Trash Bin magnesium No Notes: Memori a oxide 6-16 (Same as: l 19:39: Mag-Ox [place] 00 400) Magnesium oxide 077gb=639z g elemental magnesium Dose=____m g magnesium oxide (___mg elemental magnesium) calcium No Notes: Memoria gluconate 6-16 WASTE: F/P l 19:39: - Sink; E [place] 00 - Municipal Trash Bin calcium No Notes: Memoria gluconate + 6-16 WASTE: F/P l Sodium 19:39: - Sink; E Sang n Chloride 00 - 0.9% IV 100 Municipal mL Trash Bin potassium No Notes: Memori a chloride 6-16 (Same as: l 19:39: K-Dur 20) [place] 00 "Do Not Crush" Give with food and full glass of water For patients unable to swallow tablet, dissolve in one half glass of water. Allow about 2 minutes for the tablets to disintegra te. Stir before giving to prepare slurry and administer . Please exclude Patient s with feeding tube less than 14 [place] (Dobhoff, J-tube etc) and pediatric and patients. potassium No Notes: Memori a phosphate-s 6-16 (Same as: l odium 19:39: Phos-NaK) [place] phosphate 00 Each 1.5 250 mg-280 gm pkt has mg-160 mg 250mg oral powder phosphorou for s. Mix reconstitut w/2.5oz ion water and stir. potassium No Notes: Memori a phosphate + 6-16 (Same as: l Sodium 19:39: K [place] Chloride 00 Phosphate. 0.9% IV 250 ) [...] WASTE: F/P l 19:39: - Sink; E [place] 00 - Municipal Trash Bin magnesium No Notes: Memori a oxide 6-16 (Same as: l 19:39: Mag-Ox [place] 00 400) Magnesium oxide 417ao=410l g elemental magnesium Dose=____m g magnesium oxide [...] (Same As: l mg-100 mg/5 19:38: Robitussin Stiven mL oral 00 AC) syrup diphenhydrA No Notes: Fred sherlyn MINE 6-16 (Same as: l 19:38: Benadryl) melatonin No Notes: Memori a 6-16 (Same as: l 19:38: Melatonin) simethicone No Notes: Fred sherlyn 6-16 (Same as: l 19:38: Mylicon) codeine-gua No Notes: Fred sherlyn iFENesin 10 6-16 (Same As: l mg-100 mg/5 19:38: Robitussin Stiven mL oral 00 AC) syrup diphenhydrA No Notes: Fred sherlyn MINE 6-16 (Same as: l 19:38: Benadryl) melatonin No Notes: Memori a 6-16 (Same as: l 19:38: Melatonin) simethicone No Notes: Fred sherlyn 6-16 (Same as: l 19:38: Mylicon) codeine-gua No Notes: Fred sherlyn iFENesin 10 6-16 (Same As: l mg-100 mg/5 19:38: Robitussin [place] mL oral 00 AC) syrup diphenhydrA No Notes: Fred sherlyn MINE 6-16 (Same as: l 19:38: Benadryl) melatonin No Notes: Memori a 6-16 (Same as: l 19:38: Melatonin) Levaquin No Notes: Do Fred sherlyn 6-16 not give l 13:00: w/antacids , dairy pdt & minerals Take 1 hr before or 2 hr after dairy pdt (Same as:Levaqui n) Levaquin No Notes: Do Fred sherlyn 6-16 not give l 13:00: w/antacids , dairy pdt & minerals Take 1 hr before or 2 hr after dairy pdt (Same as:Levaqui n) Levaquin No Notes: Do Fred sherlyn 6-16 [...] Black; E Yellow "Do Not Crush" sodium 2-0 No 2 gm, 2 Memoria chloride 1 6-15 tab, l gm oral 13:00: Route: PO, Herm shakira tablet 00 Drug form: TAB, [id number], Dosing Weight 69.8, kg, Start date: 01/13/22 8:00:00 CDT, Duration: 30 day, Stop date: 02/11/22 20:00:00 CDT, 0 sodium 2-0 No 2 gm, 2 [facility] chloride 1 6-15 tab, l gm oral 13:00: Route: PO, Herm shakira tablet 00 Drug form: TAB, [id number], Dosing Weight 69.8, kg, Start date: 01/13/22 8:00:00 CDT, Duration: 30 day, Stop date: 02/11/22 20:00:00 CDT, 0 sodium 2022-0 No 2 gm, 2 [facility] chloride 1 6-15 tab, l gm oral 13:00: Route: PO, Herm shakira tablet 00 Drug form: TAB, [id number], Dosing Weight 69.8, kg, Start date: 01/13/22 8:00:00 CDT, Duration: 30 day, Stop date: 02/11/22 20:00:00 CDT, 0 gabapentin 2021-0 No Notes: Memor ia 300 mg oral 6-14 (Same as: l capsule 22:00: Neurontin) Herm shakira 00 gabapentin 2021-0 No Notes: Memor ia 300 mg oral 6-14 (Same as: l capsule 22:00: Neurontin) Herm shakira 00 gabapentin 2021-0 No Notes: Memor ia 300 mg oral 6-14 (Same as: l capsule 22:00: Neurontin) Herm shakira 00 Sodium 2022-0 No 1,000 mL, Memori a Chloride 6-14 Rate: 40 l 0.45% IV 16:27: ml/hr, [place] 1,000 mL 00 Infuse over: 25 hr, Route: IV, Dosing Weight 69.8 kg, Total Volume: 1,000, Start date: 01/12/22 11:27:00 CDT, Duration: 30 day, Stop date: 02/11/22 11:26:00 CDT, BSA: 1.82 m2, 0 Sodium 2022-0 No 1,000 mL, [facility] a Chloride 6-14 Rate: 40 l 0.45% IV 16:27: ml/hr, [place] 1,000 mL 00 Infuse over: 25 hr, Route: IV, Dosing Weight 69.8 kg, Total Volume: 1,000, Start date: 01/12/22 11:27:00 CDT, Duration: 30 day, Stop date: 02/11/22 11:26:00 CDT, BSA: 1.82 m2, 0 Sodium 2022-0 No 1,000 mL, [facility] a Chloride 6-14 Rate: 40 l 0.45% IV 16:27: ml/hr, [place] 1,000 mL 00 Infuse over: 25 hr, [...] Notes: [facility] 6-14 (Same l 14:18: as:Robaxin [place] 00 ) Robaxin No Notes: [facility] 6-14 (Same l 14:18: as:Robaxin [place] 00 ) Robaxin No Notes: [facility] 6-14 (Same l 14:18: as:Robaxin [place] 00 ) Vitamin D2 Yes 50,000 [facility] ia 6-14 units, l 02:53: qWeek, 0 [place] 00 Refill(s) Vitamin D2 Yes 50,000 [facility] ia 6-14 units, l 02:53: qWeek, 0 [place] 00 Refill(s) Vitamin D2 Yes 50,000 [facility] ia 6-14 units, l 02:53: qWeek, 0 [place] 00 Refill(s) SUMAtriptan Yes 25 mg = 1 M emoria 25 mg oral 6-14 tab, PO, l tablet 02:50: PRN, 0 [place] 00 Refill(s) SUMAtriptan Yes 25 mg = 1 M emoria 25 mg oral 6-14 tab, PO, l tablet 02:50: PRN, 0 [place] 00 Refill(s) SUMAtriptan Yes 25 mg = 1 M emoria 25 mg oral 6-14 tab, PO, l tablet 02:50: PRN, 0 [place] 00 Refill(s) hydroxyurea Yes 4 capsule, [facility] 500 mg oral 6-14 PO, Daily, l capsule 02:49: 0 [place] 00 Refill(s) hydroxyurea 2021-0 Yes 4 capsule, [facility] 500 mg oral 6-14 PO, Daily, l capsule 02:49: 0 [place] 00 Refill(s) hydroxyurea 2-0 Yes 4 capsule, [facility] 500 mg oral 6-14 PO, Daily, l capsule 02:49: 0 [place] 00 Refill(s) nortriptyli 2021-0 Yes 10 mg = 1 M emoria ne 10 mg 6-14 cap, PO, l oral 02:46: Bedtime, 0 [place] capsule 00 Refill(s) gabapentin 2021-0 Yes 300 mg = 1 M emoria 300 mg oral 6-14 cap, l capsule 02:46: Daily, 0 Sang n 00 Refill(s) nortriptyli 2021-0 Yes 10 mg = 1 M emoria ne 10 mg 6-14 cap, PO, l oral 02:46: Bedtime, 0 [place] capsule 00 Refill(s) gabapentin 2021-0 Yes 300 mg = 1 M emoria 300 mg oral 6-14 cap, l capsule 02:46: Daily, 0 Sang n 00 Refill(s) nortriptyli 2021-0 Yes 10 mg = 1 M emoria ne 10 mg 6-14 cap, PO, l oral 02:46: Bedtime, 0 [place] capsule 00 Refill(s) gabapentin 2-0 Yes 300 mg = 1 M emoria 300 mg oral 6-14 cap, l capsule 02:46: Daily, 0 Sang n 00 Refill(s) Patterson 2021-0 No 1 tab, PO, Memori a 10/325 oral 6-14 Q6H, PRN l tablet 02:44: Other -See Mignon nn 00 Comment, 0 Refill(s) [place] 2021-0 No 1 tab, PO, [facility]ori a 10/325 oral 6-14 Q6H, PRN l tablet 02:44: Other -See Mignon nn 00 Comment, 0 Refill(s) [place] 2021-0 No 1 tab, PO, [facility]ori a 10/325 oral 6-14 Q6H, PRN l tablet 02:44: Other -See Mignon nn 00 Comment, 0 Refill(s) Robaxin 500 No 500 mg = 1 [facility] mg oral 6-14 tab, PO, l tablet 02:43: Q4H, PRN [place] 00 Muscle Spasms, 0 Refill(s) Robaxin 500 No 500 mg = 1 [facility] mg oral 6-14 tab, PO, l tablet 02:43: Q4H, PRN [place] 00 Muscle Spasms, 0 Refill(s) Robaxin 500 No 500 mg = 1 [facility] mg oral 6-14 tab, PO, l tablet 02:43: Q4H, PRN [place] 00 Muscle Spasms, 0 Refill(s) folic acid Yes 1 mg, Memori a 6-14 Daily, 0 l 02:42: Refill(s) folic acid Yes 1 mg, [facility] a 6-14 Daily, 0 l 02:42: Refill(s) folic acid Yes 1 mg, [facility] a 6-14 Daily, 0 l 02:42: Refill(s) Senokot S No Notes: Memori a oral tablet 6-14 (Same as l 02:00: Senokot-S) Equiv. to Concepcion-Colac e. Senokot S No Notes: [facility]ori a oral tablet 6-14 (Same as l 02:00: Senokot-S) Equiv. to Concepcion-Colac e. Senokot S No Notes: [facility] a oral tablet 6-14 (Same as l 02:00: Senokot-S) [place] 00 Equiv. to Concepcion-Colac e. folic acid No [...] 6-13 (Same as: l 14:00: Lovenox) ketOROLAC 0 No 4 days. Fred sherlyn 6-13 l 11:00: [place] ketOROLAC 2021-0 No 4 days. Fred sherlyn 6-13 l 11:00: [place] ketOROLAC 2021-0 No 4 days. Fred sherlyn 6-13 l 11:00: [place] D10W No 250 mL, [facility] (bolus) IV 6-13 Rate: 999 l 10:03: ml/hr, [place] 00 Infuse over: 0.3 hr, Route: IVPB, Total Volume: 250, Start date: 01/11/22 5:03:00 CDT, Duration: 30 day, Stop date: 02/10/22 5:02:00 CDT, PRN Blood Glucose Results, 0 No 250 mL, [facility] (bolus) IV 6-13 Rate: 999 l 10:03: ml/hr, [place] 00 Infuse over: 0.3 hr, Route: IVPB, Total Volume: 250, Start date: 01/11/22 5:03:00 CDT, Duration: 30 day, Stop date: 02/10/22 5:02:00 CDT, PRN Blood Glucose Results, 0 No 250 mL, [facility] (bolus) IV 6-13 Rate: 999 l 10:03: ml/hr, [place] 00 Infuse over: 0.3 hr, Route: IVPB, Total Volume: 250, Start date: 01/11/22 5:03:00 CDT, Duration: 30 day, Stop date: 02/10/22 5:02:00 CDT, PRN Blood Glucose Results, 0 No 125 mL, [facility] (bolus) IV 6-13 Rate: l 09:48: 416.67 [place] 00 ml/hr, Infuse over: 0.3 hr, Route: IVPB, Total Volume: 125, Start date: 01/11/22 4:48:00 CDT, Duration: 30 day, Stop date: 02/10/22 4:47:00 CDT, PRN Blood Glucose Results, 0 D10W 2021-0 No 125 mL, [facility] (bolus) IV - Rate: l 09:48: 416.67 [place] 00 ml/hr, Infuse over: 0.3 hr, Route: IVPB, Total Volume: 125, Start date: 01/11/22 4:48:00 CDT, Duration: 30 day, Stop date: 02/10/22 4:47:00 CDT, PRN Blood Glucose Results, 0 D10W 0 No 125 mL, [facility] (bolus) IV -13 Rate: l 09:48: 416.67 [place] 00 ml/hr, Infuse over: 0.3 hr, Route: IVPB, Total Volume: 125, Start date: 01/11/22 4:48:00 CDT, Duration: 30 day, Stop date: 02/10/22 4:47:00 CDT, PRN Blood Glucose Results, 0 Dextrose No 25 mL, [facility] 50% Syringe 01-11 Route: l (D50W) 09:34: IVP, Dosing Weight 68.001, kg, PRN, PRN Blood Glucose Results, Start date: 01/11/22 4:34:00 CDT, Duration: 30 day, Stop date: 02/10/22 4:33:00 CDT glucagon 2021- No 1 mg, [facility] 01-11 Route: IM, l 09:34: Drug form: PDR/INJ, PRN, Dosing Weight 68.001, kg, PRN Blood Glucose Results, Start date: 01/11/22 4:34:00 CDT, Duration: 30 day, Stop date: 02/10/22 4:33:00 CDT, 0 ondansetron No Notes: Fred sherlyn 01-11 (Same as: l 09:34: Zofran) MEDICATION WASTE Product Size: 4 mg Product Wasted: ___ mg acetaminoph No Notes: Do M jesikaa en 01-11 not exceed l 09:34: 4 gm/day. (Same as: Tylenol) Dextrose 0 No 25 mL, [facility] 50% Syringe 6-13 Route: l (D50W) 09:34: IVP, Dosing Weight 68.001, kg, PRN, PRN Blood [...] acetaminoph No Notes: Do M emoria en - not exceed l 09:34: 4 gm/day. [place] 00 (Same as: Tylenol) Dextrose 0 No 25 mL, [facility] 50% Syringe 6- Route: l (D50W) 09:34: IVP, Dosing Weight 68.001, kg, PRN, PRN Blood [...] 6-13 not exceed l 09:34: 4 gm/day. [place] 00 (Same as: Tylenol) Sodium No 1,000 [...] 6-13 (Same as: l one 325 09:12: Patterson [place] mg-5 mg 00 325/5) Do oral tablet not exceed 4gm/day of acetaminop hen. hydromorpho No Notes: Fred sherlyn ne 6-13 (Same as: l 09:12: Dilaudid) [place] 00 docusate No Notes: [facility] sodium 100 6-13 (Same as: l mg oral 09:12: Colace) [place] capsule 00 (Do Not Crush) senna 8.6 No Notes: Memori a mg oral 6-13 (Same as: l tablet 09:12: Senokot) [place] 00 Sodium No 1,000 mL, [facility] a Chloride 6-13 Rate: 125 l 0.45% IV 09:12: ml/hr, [place] 1,000 mL 00 Infuse over: 8 hr, Route: IV, Dosing Weight 68.001 kg, Total Volume: 1,000, Start date: 01/11/22 4:12:00 CDT, Duration: 30 day, Stop date: 02/10/22 4:11:00 CDT, BSA: 1.79 m2, 0 acetaminoph No Notes: Fred sherlyn en-hydrocod 6-13 (Same as: l one 325 09:12: [place] mg-5 mg 00 325/5) Do oral tablet not exceed 4gm/day of acetaminop hen. hydromorpho No Notes: Fred sherlyn ne 6-13 (Same as: l 09:12: Dilaudid) [place] 00 docusate No Notes: [facility] sodium 100 6-13 (Same as: l mg oral 09:12: Colace) [place] capsule 00 (Do Not Crush) senna 8.6 No Notes: Memori a mg oral 6-13 (Same as: l tablet 09:12: Senokot) Sodium No 1,000 mL, [facility] a Chloride 6-13 Rate: 125 l 0.45% IV 09:12: ml/hr, [place] 1,000 mL 00 Infuse over: 8 hr, Route: IV, Dosing Weight 68.001 kg, Total Volume: 1,000, Start date: 01/11/22 4:12:00 CDT, Duration: 30 day, Stop date: 02/10/22 4:11:00 CDT, BSA: 1.79 m2, 0 acetaminoph No Notes: Fred sherlyn en-hydrocod 6-13 (Same as: l one 325 09:12: [place] mg-5 mg 00 325/5) Do oral tablet not exceed 4gm/day of acetaminop hen. hydromorpho No Notes: Fred sherlyn ne 6-13 (Same as: l 09:12: Dilaudid) docusate No Notes: [facility] sodium 100 6-13 (Same as: l mg oral 09:12: Colace) [place] capsule 00 (Do Not Crush) senna 8.6 No Notes: Memori a mg oral 6-13 (Same as: l tablet 09:12: Senokot) Dilaudid No 1 mg, [facility] 6-13 Route: l 09:06: IVP, ONCE, Dosing Weight 68.001, kg, Priority: STAT, Start date: 01/11/22 4:06:00 CDT, Stop date: 01/11/22 4:06:00 CDT Dilaudid No 1 mg, [facility] 6-13 Route: l 09:06: IVP, ONCE, Dosing Weight 68.001, kg, Priority: STAT, Start date: 01/11/22 4:06:00 CDT, Stop date: 01/11/22 4:06:00 CDT Dilaudid 2021-0 No 1 mg, [facility] 6-13 Route: l 09:06: IVP, ONCE, Dosing Weight 68.001, kg, Priority: STAT, Start date: 01/11/22 4:06:00 CDT, Stop date: 01/11/22 4:06:00 CDT Sodium 2-0 No 1,000 mL, [facility] a Chloride 6-13 1000 l 0.9% 07:32: ml/hr, [place] (Bolus) IV 00 Infuse Over: 1 hr, Route: IV, 1,000, Drug form: INJ, ONCE, Priority: STAT, Dosing Weight 68.001 kg, Start date: 01/11/22 2:32:00 CDT, Stop date: 01/11/22 2:32:00 CDT, 0 morphine 2021-0 No Notes: [facility] Sulfate 6-13 (Same l 07:32: as:MORPhin [place] 00 e Sulfate) ondansetron No Notes: Fred sherlyn 6-13 (Same as: l 07:32: Zofran) [place] 00 MEDICATION WASTE Product Size: 4 mg Product Wasted: ___ mg Sodium 2021-0 No 1,000 mL, Memori a Chloride 6-13 1000 l 0.9% 07:32: ml/hr, [place] (Bolus) IV 00 Infuse Over: 1 hr, Route: IV, 1,000, Drug form: INJ, ONCE, Priority: STAT, Dosing Weight 68.001 kg, Start date: 01/11/22 2:32:00 CDT, Stop date: 01/11/22 2:32:00 CDT, 0 morphine 2021-0 No Notes: [facility] Sulfate 6-13 (Same l 07:32: as:MORPhin [place] 00 e Sulfate) ondansetron 0 No Notes: Fred sherlyn 6-13 (Same as: l 07:32: Zofran) [place] 00 MEDICATION WASTE Product Size: 4 mg Product Wasted: ___ mg Sodium No 1,000 mL, [facility] a Chloride - 1000 l 0.9% 07:32: ml/hr, [place] (Bolus) IV 00 Infuse Over: 1 hr, Route: IV, 1,000, Drug form: INJ, ONCE, Priority: STAT, Dosing Weight 68.001 kg, Start date: 01/11/22 2:32:00 CDT, Stop date: 01/11/22 2:32:00 CDT, 0 morphine No Notes: [facility] Sulfate - (Same l 07:32: as:MORPhin [place] 00 e Sulfate) ondansetron No Notes: Fred sherlyn -13 (Same as: l 07:32: Zofran) [place] 00 MEDICATION WASTE Product Size: 4 mg Product Wasted: ___ mg Dilaudid No Notes: [facility] 6-12 (Same as: l 15:19: Dilaudid) [place] Dilaudid No Notes: [facility] 6-12 (Same as: l 15:19: Dilaudid) [place] 00 Dilaudid No Notes: [facility] 6-12 (Same as: l 15:19: Dilaudid) [place] 00 NS (Bolus) No 1,000 mL, Me moria IV 12 1,000 l 13:19: ml/hr, [place] 00 Infuse Over: 1 hr, Route: IV, [...] moria IV 6-12 1,000 l 13:19: ml/hr, [place] 00 Infuse Over: 1 hr, Route: IV, 1,000, Drug form: INJ, ONCE, Priority: STAT, Dosing Weight 69.2 kg, Start date: 01/10/22 8:19:00 CDT, Stop date: 01/10/22 8:19:00 CDT, 0 Benadryl No Notes: [facility] 6-12 (Same as: l 13:18: Benadryl) [place] Benadryl No Notes: [facility] 6-12 (Same as: l 13:18: Benadryl) [place] Benadryl No Notes: [facility] 6-12 (Same as: l 13:18: Benadryl) [place] Saline No Notes: [facility] Flush 0.9% 6-12 Same as: l 13:07: BD [place] Posiflush Sterile morphine No Notes: [facility] Sulfate 6-12 (Same l 13:07: as:MORPhin [place] 00 e Sulfate) ondansetron No Notes: Fred sherlyn 6-12 (Same as: l 13:07: Zofran) [place] 00 MEDICATION WASTE Product Size: 4 mg Product Wasted: ___ mg Saline No Notes: [facility] Flush 0.9% 6-12 Same as: l 13:07: BD [place] 00 Posiflush Sterile morphine No Notes: [facility] Sulfate 6-12 (Same l 13:07: as:MORPhin [place] 00 e Sulfate) ondansetron No Notes: Fred sherlyn 6-12 (Same as: l 13:07: Zofran) [place] 00 MEDICATION WASTE Product Size: 4 mg Product Wasted: ___ mg Saline No Notes: [facility] Flush 0.9% 6-12 Same as: l 13:07: BD [place] 00 Posiflush Sterile morphine No Notes: [facility] Sulfate 6-12 (Same l 13:07: as:MORPhin [place] 00 e Sulfate) ondansetron 2022-0 No Notes: Fred sherlyn 6-12 (Same as: l 13:07: Zofran) [place] 00 MEDICATION WASTE Product Size: 4 mg Product Wasted: ___ mg nortriptyli 2021-0 Yes [id number] TAKE 1 CAP [facility] ne 4-19 BY MOUTH [facility] ([place]) 00:00: AT BEDTIME 10 MG 00 FOR 1 capsule WEEK, THEN 2 CAPSULES FOR 1 WEEK, THEN 3 CAPSULES AT BEDTIMEE nortriptyli 2022-0 Yes [id number] TAKE 1 CAP UT ne 4-19 BY MOUTH [facility] ([place]) 00:00: AT BEDTIME 10 MG 00 FOR 1 capsule WEEK, THEN 2 CAPSULES FOR 1 WEEK, THEN 3 CAPSULES AT BEDTIMEE nortriptyli 2021-0 Yes [id number] TAKE 1 CAP UT ne 4-19 BY MOUTH [facility] ([place]) 00:00: AT BEDTIME 10 MG 00 FOR 1 capsule WEEK, THEN 2 CAPSULES FOR 1 WEEK, THEN 3 CAPSULES AT BEDTIMEE methocarbam 2022-0 Yes 500mg Q4H Take 500 M ethodi ol 4-[address] (ROBAXIN) 17:01: mouth [facility]ospita 500 MG 37 every 4 l tablet (four) hours as needed for muscle spasms. folic acid 2022-0 Yes 1mg QD Take 1 mg Me thodi (FOLVITE) 1 4-[address] MG tablet 17:01: daily. In [facility] 37 the l morning SUMAtriptan 2022-0 Yes 25mg Take 25 mg [facility] (IMITREX) 4-[address] 25 MG 17:01: once as Hospita tablet 37 needed for l migraine. May repeat in 2 hours if unresolved . Do not exceed 200 mg in 24 hours. methocarbam 2022-0 Yes 500mg Q4H Take 500 M ethodi ol 4-[address] (ROBAXIN) 17:01: mouth [facility]ospita 500 MG 37 every 4 l tablet (four) hours as needed for muscle spasms. folic acid 2022-0 Yes 1mg QD Take 1 mg Me thodi (FOLVITE) 1 4-[address] MG tablet 17:01: [facility]. [facility] SUMAtriptan 2022-0 Yes 25mg Take 25 mg [facility] (IMITREX) [...] mouth st MG tablet 17:01: daily. In [facility] 37 the l morning SUMAtriptan 2021-0 Yes 25mg Take 25 mg [facility] (IMITREX) 4-[address] 25 MG 17:01: once as [facility]ospita tablet 37 needed for l migraine. May repeat in 2 hours if unresolved . Do not exceed 200 mg in 24 hours. SUMAtriptan 2021-0 Yes [id number] 25mg Take 1 UT (Imitrex) 2-24 tablet [...] if needed (headache) . SUMAtriptan 2021-0 Yes [id number] 25mg Take 1 UT (Imitrex) 2-24 tablet [...] if needed (headache) . SUMAtriptan 2021-0 Yes [id number] 25mg Take 1 UT (Imitrex) 2-24 tablet (25 Heal th 25 MG 00:00: mg total) tablet 00 by mouth 1 (one) time if needed for migraine (may repeat x1) for up to 1 dose. May repeat dose once in 2 hours if no relief. Do not exceed 2 doses in 24 hours. Diclofenac Yes 58 50mg Take 50 mg U T Potassium,M 2-24 by mouth 1 He alth igraine, 00:00: (one) time ([place]ia) 50 00 each day MG pack if needed (headache) . levoFLOXaci 2021- No 750mg QD Take 1 Me thodi n -09-[address] (Levaquin) 00:00: 05:59 (750 mg [...] tablet mouth daily for 7 days. doxycycline 2021-2021- No 100mg Q.5D Take 1 Me thodi (VIBRAMYCIN 09-[address] ) 100 MG 00:00: 05:59 (100 mg Hospi ta capsule 00 :00 total) by l mouth 2 (two) times a day for 7 days. levoFLOXaci 2021- No 750mg QD Take 1 Me thodi n -09-[address] (Levaquin) 00:00: 05:59 (750 mg [facility] 750 MG 00 :00 total) by l tablet mouth daily for 7 days. doxycycline 2021-0 2- No 100mg Q.5D Take 1 Me thodi (VIBRAMYCIN 09-[address] ) 100 MG 00:00: 05:59 (100 mg Hospi ta capsule 00 :00 total) by l mouth 2 (two) times a day for 7 days. doxycycline 2021-0 2021- No 100mg Q.5D Take 1 Me thodi (VIBRAMYCIN 2-04 02- capsule st ) 100 MG 00:00: 00:00 (100 mg Hospi ta capsule 00 :00 total) by l mouth 2 (two) times a day for 7 days. levoFLOXaci 2022-0 2022- No 750mg QD Take 1 Me thodi n 2-04 02- tablet st (Levaquin) 00:00: 00:00 (750 mg [facility] 750 MG 00 :00 total) by l tablet mouth daily for 7 days. doxycycline 2022-0 2022- No 100mg Q.5D Take 1 Me thodi (VIBRAMYCIN 2-09-[address] ) 100 MG 00:00: 00:00 (100 mg Hospi ta capsule 00 :00 total) by l mouth 2 (two) times a day for 7 days. levoFLOXaci 2022-0 2022- No 750mg QD Take 1 Me thodi n 2-09-[address] (Levaquin) 00:00: 00:00 (750 mg [facility] 750 MG 00 :00 total) by l tablet mouth daily for 7 days. doxycycline 2022-0 2022- No 100mg Q.5D Take 1 Me thodi (VIBRAMYCIN 2-09-[address] ) 100 MG 00:00: 00:00 (100 mg Hospi ta capsule 00 :00 total) by l mouth 2 (two) times a day for 7 days. levoFLOXaci 2022-0 2022- No 750mg QD Take 1 Me thodi n 2-09-[address] (Levaquin) 00:00: 00:00 (750 mg [facility] 750 MG 00 :00 total) by l tablet mouth daily for 7 days. methocarbam 2022-0 Yes 500mg Q4H Take 500 M ethodi ol 1-[address] (ROBAXIN) 13:44: mouth Hospita 500 MG 49 every 4 l tablet (four) hours as needed for muscle spasms. SUMAtriptan 2-0 Yes 25mg Take 25 mg [facility] (IMITREX) 1-[address] 25 MG 13:44: once as Hospita tablet 49 needed for l migraine. May repeat in 2 hours if unresolved . Do not exceed 200 mg in 24 hours. folic acid 2-0 Yes 1mg QD Take 1 mg Me thodi (FOLVITE) 1 - by mouth st MG tablet 13:41: daily. In [facility] 05 the l morning folic acid 2-0 Yes [id number] 1000ug QD Take 1 UT (Folvite) 1 1-21 tablet Health MG tablet 00:00: (1,000 mcg 00 total) by mouth 1 (one) time each day. folic acid 2-0 Yes [id number] 1000ug QD Take 1 UT (Folvite) 1 1-21 tablet Health MG tablet 00:00: (1,000 mcg 00 total) by mouth 1 (one) time each day. folic acid 2-0 Yes [id number] 1000ug QD Take 1 UT (Folvite) 1 1-21 tablet Health MG tablet 00:00: (1,000 mcg 00 total) by mouth 1 (one) time each day. ergocalcife 2022-0 Yes [id number] Take 1 UT rol 1-14 capsule Health (Vitamin 00:00: (50,000 D2) 1.25 MG 00 Units (87599 UT) total) by capsule mouth 1 (one) time per week. QUEtiapine 2022-0 Yes [id number] 50mg Take 1 U T (SEROquel) 1-14 tablet (50 Hea lth 50 MG 00:00: mg total) tablet 00 by mouth every night. QUEtiapine 2022-0 Yes [id number] 25mg Take 1 U T (SEROquel) 1-14 tablet (25 Hea lth 25 MG 00:00: mg total) tablet 00 by mouth 1 (one) time each day in the morning. ergocalcife 2022-0 Yes [id number] Take 1 UT rol 1-14 capsule Health (Vitamin 00:00: (50,000 D2) 1.25 MG 00 Units (44777 UT) total) by capsule mouth 1 (one) time per week. QUEtiapine 2022-0 Yes [id number] 50mg Take 1 U T (SEROquel) 1-14 tablet (50 Hea lth 50 MG 00:00: mg total) tablet 00 by mouth every night. QUEtiapine 2022-0 Yes [id number] 25mg Take 1 U T (SEROquel) 1-14 tablet (25 Hea lth 25 MG 00:00: mg total) tablet 00 by mouth 1 (one) time each day in the morning. ergocalcife 0 Yes [id number] Take 1 UT rol 1-14 capsule Health (Vitamin 00:00: (50,000 D2) 1.25 MG 00 Units (49692 UT) total) by capsule mouth 1 (one) time per week. QUEtiapine 0 Yes [id number] 50mg Take 1 U T (SEROquel) 1-14 tablet (50 Hea lth 50 MG 00:00: mg total) tablet 00 by mouth every night. QUEtiapine 0 Yes [id number] 25mg Take 1 U T (SEROquel) 1-14 tablet (25 Hea lth 25 MG 00:00: mg total) tablet 00 by mouth 1 (one) time each day in the morning. naloxone 2022- No [id number] .4mg Administer UT (Narcan) 2 08-14 0.4 mL Health MG/2ML 00:00: 05:59 (0.4 mg injection 00 :00 total) into affected nostril(s) if needed for opioid reversal. May repeat every 2-3 minutes as needed until medical assistance available. naloxone 2022- No [id number] 2mg Inject 5 UT (Narcan) 08-14-15 mL (2 mg Health 0.4 MG/ML 00:00: 05:59 total) injection 00 :00 into the shoulder, thigh, or buttocks if needed for opioid reversal. naloxone 2022- No [id number] .4mg Administer UT (Narcan) 2 08-1415 0.4 mL Health MG/2ML 00:00: 05:59 (0.4 mg injection 00 :00 total) into affected nostril(s) if needed for opioid reversal. May repeat every 2-3 minutes as needed until medical assistance available. naloxone 2022- No [id number] 2mg Inject 5 UT (Narcan) 08-14-15 mL (2 mg Health 0.4 MG/ML 00:00: 05:59 total) injection 00 :00 into the shoulder, thigh, or buttocks if needed for opioid reversal. naloxone 2022- No [id number] .4mg Administer UT (Narcan) 2 08-14-15 0.4 mL Health MG/2ML 00:00: 05:59 (0.4 mg injection 00 :00 total) into affected nostril(s) if needed for opioid reversal. May repeat every 2-3 minutes as needed until medical assistance available. naloxone 2022- No [id number] 2mg Inject 5 UT (Narcan) 08-14-15 mL (2 mg Health 0.4 MG/ML 00:00: 05:59 total) injection 00 :00 into the shoulder, thigh, or buttocks if needed for opioid reversal. deferasirox 2020-08 Yes [id number] TAKE 3 UT (Jadenu) 2-07 TABLET Health 360 MG 00:00: DAILY tablet 00 deferasirox 2020-08 Yes [id number] TAKE 3 UT (Jadenu) 2-07 TABLET Health [...] 00 :00 l disintegrat ing tablet ondansetron 2020-08 Metho di ODT 010-26 st (ZOFRAN-ODT 00:00: 00:00 Hospi ta ) 4 MG 00 :00 l disintegrat ing tablet Flexeril 5 Yes 5 mg = 1 Mem oria mg oral 8-18 tab, PO, l tablet 10:22: TID, X 5 day, # 15 tab, 0 Refill(s) Flexeril 5 Yes 5 mg = 1 Mem oria mg oral 8-18 tab, PO, l tablet 10:22: TID, X 5 [place] 00 day, # 15 tab, 0 Refill(s) Flexeril 5 Yes 5 mg = 1 Mem oria mg oral 8-18 tab, PO, l tablet 10:22: TID, X 5 day, # 15 tab, 0 Refill(s) Flexeril No Notes: Memoria 8-18 (Same As: l 08:55: Flexeril) [place] 00 Flexeril No Notes: [facility]oria 8-18 (Same As: l 08:55: Flexeril) [place] 00 Flexeril No Notes: [facility]oria 8-18 (Same As: l 08:55: Flexeril) ketOROLAC No 4 days Memor ia 30 mg/mL 03-18 l injectable 08:54: MEDICATION H ermann solution 00 WASTE Product Size: 30 mg Product Wasted: ___ mg ketOROLAC No 4 days Memor ia 30 mg/mL 03-18 l injectable 08:54: MEDICATION H ermann solution 00 WASTE Product Size: 30 mg Product Wasted: ___ mg ketOROLAC No 4 days [facility] 30 mg/mL 03-18 l injectable 08:54: MEDICATION H ermann solution 00 WASTE Product Size: 30 mg Product Wasted: ___ mg Benadryl No 25 mg, [facility] 8-18 Route: l 06:35: IVP, ONCE, Dosing Weight 71.818, kg, Priority: STAT, Start date: 03/18/21 1:35:00 CDT, Stop date: 03/18/21 1:35:00 CDT Benadryl 1-0 No 25 mg, [facility] 8- Route: l 06:35: IVP, ONCE, Dosing Weight 71.818, kg, Priority: STAT, Start date: 03/18/21 1:35:00 CDT, Stop date: 03/18/21 1:35:00 CDT Benadryl 2020-0 No 25 mg, [facility] 03-18 Route: l 06:35: IVP, ONCE, Dosing Weight 71.818, kg, Priority: STAT, Start date: 03/18/21 1:35:00 CDT, Stop date: 03/18/21 1:35:00 CDT Sodium 2020-0 No 1,000 mL, [facility] a Chloride 8-18 1000 l 0.9% 05:02: ml/hr, [place] (Bolus) IV 00 Infuse Over: 1 hr, Route: IV, 1,000, Drug form: INJ, ONCE, Priority: STAT, Dosing Weight 71.818 kg, Start date: 03/18/21 0:02:00 CDT, Stop date: 03/18/21 0:02:00 CDT, 0 Morphine 2020-0 No Notes: [facility] 8-18 (Same l 05:02: as:MORPhin [place] 00 e Sulfate) Sodium 2020-0 No 1,000 mL, [facility] Chloride 8-18 1000 l 0.9% 05:02: ml/hr, [place] (Bolus) IV 00 Infuse Over: 1 hr, Route: IV, 1,000, Drug form: INJ, ONCE, Priority: STAT, Dosing Weight 71.818 kg, Start date: 03/18/21 0:02:00 CDT, Stop date: 03/18/21 0:02:00 CDT, 0 Morphine 2020-0 No Notes: [facility] 8-18 (Same l 05:02: as:MORPhin [place] 00 e Sulfate) Sodium 2020-0 No 1,000 mL, [facility] a Chloride 8-18 1000 l 0.9% 05:02: ml/hr, [place] (Bolus) IV 00 Infuse Over: 1 hr, Route: IV, 1,000, Drug form: INJ, ONCE, Priority: STAT, Dosing Weight 71.818 kg, Start date: 03/18/21 0:02:00 CDT, Stop date: 03/18/21 0:02:00 CDT, 0 Morphine 2020-0 No Notes: [facility] 18 (Same l 05:02: as:MORPhin [place] 00 e Sulfate) lisinopril 2020- No 5mg QD Take 5 mg M ethodi (PRINIVIL) [id number] 5 mg tablet 11:57: 00:00 daily. [facility] 27 :00 l deferasirox 2020- No TAKE 3 [facility] 360 mg 6-30 10-[address] tablet 00:00: 00:00 [facility]ILY [facility] 00 :00 l deferasirox 2020-0 2020- No TAKE 3 [facility] 360 mg 6-30 10-[address] tablet 00:00: 00:00 DAILY [facility] 00 :00 l Ketorolac 2020-0 No 30 mg, [facility] a 01-24 Route: IM, l 17:32: Drug form: [place] 00 INJ, ONCE, Dosing Weight 71.818, kg, [...] 01-24 Route: IM, l 17:32: Drug form: [place] 00 INJ, ONCE, Dosing Weight 71.818, kg, Priority: STAT, Start date: 01/24/21 12:32:00 CDT, Stop date: 01/24/21 12:32:00 CDT Motrin 600 2021-0 Yes 600 mg = 1 M emoria mg oral 3-25 tab, PO, l tablet 20:38: Q6H, PRN [place] 00 Pain, take with food, X 5 day, # 20 tab, 0 Refill(s) Motrin 600 2021-0 Yes 600 mg = 1 M [facility] mg oral 3-25 tab, PO, l tablet 20:38: Q6H, PRN [place] 00 Pain, take with food, X 5 day, # 20 tab, 0 Refill(s) Motrin 600 2020-0 Yes 600 mg = 1 M [facility] mg oral 3-25 tab, PO, l tablet 20:38: Q6H, PRN [place] 00 Pain, take with food, X 5 day, # 20 tab, 0 Refill(s) Motrin 2021-0 No 600 mg, [facility] 3-25 Route: PO, l 18:22: Drug form: [place] 00 TAB, ONCE, Dosing Weight 68.182, kg, Priority: STAT, Start date: 10/23/20 13:22:00 CDT, Stop date: 10/23/20 13:22:00 CDT Motrin 1-0 No 600 mg, [facility] 3-25 Route: PO, l 18:22: Drug form: [place] 00 TAB, ONCE, Dosing Weight 68.182, kg, Priority: STAT, Start date: 10/23/20 13:22:00 CDT, Stop date: 10/23/20 13:22:00 CDT Motrin 2021-0 No 600 mg, [facility] 3-25 Route: PO, l 18:22: Drug form: [place] 00 TAB, ONCE, Dosing Weight 68.182, kg, Priority: STAT, Start date: 10/23/20 13:22:00 CDT, Stop date: 10/23/20 13:22:00 CDT aspirin 81 2020-2020- No 81mg QD Chew 1 Meth lynda mg chewable -12 02- tablet (81 s t tablet 00:00: 00:00 mg total) Hospi ta 00 :00 daily. l pantoprazol 2020-2020- No 40mg QD Take 1 [facility] e 2-15 - tablet (40 st (PROTONIX) 00:00: 00:00 mg total) H ospita 40 MG EC 00 :00 by mouth l tablet daily. zinc 2020- No 220mg QD Take 1 [facility] sulfate [...] (two) times a day. Lisinopril Lisinopril Yes [facility] QD TAKE 1/2 UT 5 MG Oral 5 MG Oral 01-30 TABLET BY [facility] Tablet Tablet 00:00: M.D. MOUTH ans 00 EVERY DAY fluticasone 2020- No [id number] SPRAY 2 [facility] propionate 12-[address] (FLONASE) 00:00: 00:00 INTO EACH Ho spita 50 00 :00 NOSTRIL l mcg/actuati EVERY DAY on nasal spray deferasirox Yes Take by Met [facility] 360 mg 2- mouth. st tablet 00:00: Hospita 00 l Deferasirox Deferasirox 2020-0 Yes BINSAH 3 QD TAKE 3 UT 360 MG Oral 360 MG Oral 2- ZAHRAA TABLET [facility] Tablet Tablet 00:00: M.D. DAILY ans 00 deferasirox 2020-0 2021- No Take by Me thodi 360 mg 09-[address] tablet 00:00: 00:00 Hospita 00 :00 l deferasirox 2020-0 2021- No Take by Me th[facility] 360 mg 09-[address] tablet 00:00: 00:00 Hospita 00 :00 l deferasirox 2020-0 2021- No Take by Me th[facility] 360 mg 09-[address] tablet 00:00: 00:00 Hospita 00 :00 l HYDROcodone 2020-0 Yes 1{tbl} Q6H Take 1 Me thodi -acetaminop 1-[address] hen ([employer]) 00:00: mouth Hospi ta 10-325 mg 00 every 6 l per tablet (six) hours. HYDROcodone 2020-0 Yes 1{tbl} Q6H Take 1 Me thodi -acetaminop 1-[address] hen ([employer]) 00:00: mouth Hospi ta 10-325 mg 00 every 6 l per tablet (six) hours as needed for moderate pain. HYDROcodone 2020-0 Yes 1{tbl} Q6H Take 1 Me thodi -acetaminop 1-[address] hen ([employer]) 00:00: mouth Hospi ta 10-325 mg 00 every 6 l per tablet (six) hours as needed for moderate pain. HYDROcodone 2020-0 Yes 1{tbl} Q6H Take 1 Me thodi -acetaminop 1-[address] hen ([employer]) 00:00: mouth Hospi ta 10-325 mg 00 every 6 l per tablet (six) hours as needed for moderate pain. HYDROcodone HYDROcodone 2020-0 Yes BINS 1 TAKE 1 UT -Acetaminop -Acetaminop 1-24 ZAHRAA TABLET [facility] hen 10-325 hen 10-325 00:00: M.D. EVERY 6 ans MG Oral MG Oral 00 HOURS Tablet Tablet NEEDED FOR PAIN. Dilaudid 2018-08 No Notes: Memoria 2-31 Same as l 04:52: Dilaudid [place] 00 Dilaudid 2018-08 No Notes: [facility] 2-31 Same as l 04:52: Dilaudid [place] 00 Dilaudid 2018-08 No Notes: [facility] 2-31 Same as l 04:52: Dilaudid [place] 00 Isolyte S 2018-08 No Notes: Memori a PH-7.4 2- (Same as: l (Bolus) IV 03:17: Isolyte S He r[place] 00 PH7.4, Normosol-R PH 7.4, Plasma-Lyt e A ) Isolyte S 2018-08 No Notes: Memori a PH-7.4 (Same as: l (Bolus) IV 03:17: Isolyte S He rmann 00 PH7.4, Normosol-R PH 7.4, Plasma-Lyt e A ) Isolyte S 2018-08 No Notes: Memori a PH-7.4 - (Same as: l (Bolus) IV 03:17: Isolyte S He rmann 00 PH7.4, Normosol-R PH 7.4, Plasma-Lyt e A ) ergocalcife 2018-08 Yes 1{capsu Q1W Take 1 [...] l unit days. 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 gabapentin 2019- Yes 300mg QD Take 300 Me thodi [...] UT ol 500 MG ol 500 MG PALEONTOLOGICAL HELPER TABLET 2 P [facility] Oral Tablet Oral Tablet TIMES ans DAILY NEEDED FOR SPASM. Gabapentin Gabapentin Yes UT 300 MG Oral 300 MG Oral P [facility] Capsule Capsule ans Immunizations Ordered Immunization Filled Immunization Date Status Commen ts Source Name Name Influenza, 2022-07-16 Completed [facility] injectable, 00:00:00 quadrivalent, preservative free (afluria, fluarix, flulaval, fluzone) HPV 9-Valent 2022-07-16 Completed [facility] 00:00:00 Tdap 2022-05-06 Completed [facility] 00:00:00 Tdap 2022-05-06 Completed [facility] 00:00:00 [facility] Tdap 2022-05-06 Completed [facility] 00:00:00 [facility] HPV 9-Valent 2020-12-22 Completed [facility] 00:00:00 HPV 9-Valent 2020-12-22 Completed [facility] 00:00:00 HPV 9-Valent 2020-12-22 Completed [facility] 00:00:00 Gardasil-9 2020-12-22 Completed [facility] 00:00:00 [facility] Gardasil-9 2020-12-22 Completed [facility] 00:00:00 [facility] Gardasil-9 2020-12-22 Completed [facility] 00:00:00 [facility] Gardasil-9 2020-12-22 Completed [facility] 00:00:00 [facility] Influenza, seasonal, 2019 [facility] [...] quadrivalent, preservative free (afluria, fluarix, flulaval, fluzone) FLUZONE QUAD PF 2019 Completed [facility] 00:00:00 [facility] Influenza Trivalent 2019 Completed [facility] 00:00:00 [facility] FLUZONE QUAD PF 2019 Completed [facility] 00:00:00 [facility] Influenza Trivalent 2019 Completed [facility] 00:00:00 [facility] FLUZONE QUAD PF 2019 Completed [facility] 00:00:00 [facility] Influenza Trivalent 2019 Completed [facility] 00:00:00 Hospital FLUZONE QUAD PF 2019 Completed [facility] 00:00:00 [facility] Influenza Trivalent 2019 Completed [facility] 00:00:00 [facility] Fluzone Quadrivalent 2019 [facility] 0.5 ML Intramuscular 00:00:00 Suspension Prefilled Syringe Influenza, 2019-05-01 Completed [facility] quadrivalent, 00:00:00 injectable, preservative free (flublok) Influenza, 2019-05-01 Completed [facility] quadrivalent, 00:00:00 injectable, preservative free (flublok) Influenza, 2019-05-01 Completed [facility] quadrivalent, 00:00:00 injectable, preservative free (flublok) FLUBLOK QUAD PF 2019-05-01 Completed [facility] 00:00:00 [facility] FLUBLOK QUAD PF 2019-05-01 Completed [facility] 00:00:00 [facility] FLUBLOK QUAD PF 2019-05-01 Completed [facility] 00:00:00 [facility] FLUBLOK QUAD PF 2019-05-01 Completed [facility] 00:00:00 [facility] Influenza, 2018-05-04 Completed [facility] injectable, [...] 2018-05-04 [facility] Recombinant 00:00:00 FLUZONE QUAD PF 2018-05-04 Completed [facility] 00:00:00 [facility] Meningcoccal Group B 2018-05-04 Completed [facility] 4 Strain (3 Dose) 00:00:00 Hospita l FLUZONE QUAD PF 2018-05-04 Completed [facility] 00:00:00 [facility] Meningcoccal Group B 2018-05-04 Completed [facility] 4 Strain (3 Dose) 00:00:00 Hospita l FLUZONE QUAD PF 2018-05-04 Completed [facility] 00:00:00 [facility] Meningcoccal Group B 2018-05-04 Completed [facility] 4 Strain [facility]3 D[facility]) [facility]04 Com[facility] 4 Strain (3 Dose) [facility] 2018-05-04 Completed [facility] 00:00:00 [facility] Meningococcal B, 2017-11-08 [facility] [...] [facility] 4 Strain (3 Dose) 00:00[facility] 00:00:00 Meningococcal B, 2017-07-12 [facility]com[facility] 00:00:00 Meningococcal B, 2017-07-12 [facility]com[facility] 00:00:00 Meningcoccal Group B 2017-07-12 Completed [facility] 4 Strain (3 Dose) 00:00:00 Hospita l Meningcoccal Group B 2017-07-12 Completed [facility] 4 Strain (3 Dose) 00:00:00 Hospita l Meningcoccal Group B 2017-07-12 Completed [facility] 4 Strain (3 Dose) 00:00:00 Hospita l Meningcoccal Group B 2017-07-12 Completed [facility] 4 Strain (3 Dose) 00:00:00 Hospita l Influenza, 2017-05-31 Completed [facility] injectable, 00:00:00 quadrivalent, preservative free (afluria, fluarix, flulaval, fluzone) Influenza, 2017-05-31 Completed [facility] injectable, 00:00:00 quadrivalent, preservative free (afluria, fluarix, flulaval, fluzone) Influenza, 2017-05-31 Completed [facility] injectable, 00:00:00 quadrivalent, preservative free (afluria, fluarix, flulaval, fluzone) Influenza, 2017-05-31 Completed [facility] injectable, 00:00:00 quadrivalent, preservative free (afluria, fluarix, flulaval, fluzone) Influenza, 2017-05-31 Completed [facility] injectable, 00:00:00 quadrivalent, preservative free (afluria, fluarix, flulaval, fluzone) Influenza, 2017-05-31 Completed [facility] injectable, 00:00:00 quadrivalent, preservative free (afluria, fluarix, flulaval, fluzone) FLUZONE QUAD PF 2017-05-31 Completed [facility] 00:[facility]:00 [facility] FLUZONE QUAD PF 2017-05-31 Completed [facility] 00:00:00 [facility] FLUZONE QUAD PF 2017-05-31 Completed [facility] 00:00:00 [facility] FLUZONE QUAD PF 2017-05-31 Completed [facility] Influenza, seasonal, 2016-07-07 [facility] Influenza, seasonal, 2016-07-07 [facility]:00 Influenza, seasonal, 2016-07-07 [facility]:00 Influenza, 2016-07-07 Completed [facility] Unspecified 00:00:00 [facility] Influenza Trivalent 2016-07-07 Completed [facility] 00:[facility]:00 [facility] Influenza, 2016-07-07 Completed [facility] Unspecified 00:00:00 Hospital Influenza Trivalent 2016-07-07 Completed [facility] 00:[facility] Influenza, 2016-07-07 Completed [facility] Unspecified 00:00:00 Hospital Influenza Trivalent 2016-07-07 Completed [facility] 00:[facility] Influenza, 2016-07-07 Completed [facility] Unspecified 00:00:00 [facility] Influenza Trivalent 2016-07-07 Completed [facility] Influenza, seasonal, 2015-10-09 [facility] Influenza, seasonal, 2015-10-09 [facility]:00 Influenza, seasonal, 2015-10-09 [facility]:00 Influenza, 2015-10-09 Completed [facility] Un[facility] 00:00:00 [facility] Influenza Trivalent 2015-10-09 Completed [facility] Influenza, 2015-10-09 Completed [facility] Unspecified 00:00:00 [facility] Influenza Trivalent 2015-10-09 Completed [facility] Influenza, 2015-10-09 Completed [facility] Unspecified 00:00:00 Hospital Influenza Trivalent 2015-10-09 Completed [facility] Influenza, 2015-10-09 Completed [facility] Unspecified 00:00:00 Hospital Influenza Trivalent 2015-10-09 Completed [facility] Influenza, seasonal, 2014-05-29 [facility]:00 Meningococcal MCV4O 2014-05-29 [facility]pleted [facility] Influenza, seasonal, 2014-05-29 [facility]:00:00 Meningococcal MCV4O 2014-05-29 [facility]pleted [facility] 00:[facility]:00 Influenza, seasonal, 2014-05-29 [facility] inject[facility] 00:00:00 Meningococcal MCV4O 2014-05-29 [facility] Influenza, 2014-05-29 Completed [facility] Unspecified 00:00:00 Hospital Influenza Trivalent 2014-05-29 Completed [facility] 00:[facility]:00 [facility] Meningococcal 2014-05-29 Completed [facility] Conjugate 00:00:00 Hospital Influenza, 2014-05-29 Completed [facility] Unspecified 00:00:00 Hospital Influenza Trivalent 2014-05-29 Completed [facility] 00:[facility] Meningococcal 2014-05-29 Completed [facility] Conjugate 00:00:00 Hospital Influenza, 2014-05-29 Completed [facility] Unspecified 00:00:00 Hospital Influenza Trivalent 2014-05-29 Completed [facility] 00:00:00 Hospital Meningococcal 2014-05-29 Completed [facility] Conjugate 00:00:00 Hospital Influenza, 2014-05-29 Completed [facility] Unspecified 00:00:00 Hospital Influenza Trivalent 2014-05-29 Completed [facility] 00:[facility]:00 Hospital Meningococcal 2014-05-29 Completed [facility] Conjugate 00:00:00 [facility] Influenza, seasonal, 2013-08-08 [facility] [...] MCV4P 2013-08-08 [facility] Influenza (IM) 2013-08-08 Completed [facility] Preservative Free 00:00:00 Hospita l Influenza (IM) 2013-08-08 Completed [facility] Preservative Free 00:00:00 Hospita l Meningococcal MCV4P 2013-08-08 Completed [facility] Meningococcal ACWY, 2013-08-08 Completed [facility] Unspecified 00:00:00 Hospital Influenza (IM) 2013-08-08 Completed [facility] Preservative Free 00:00:00 Hospita l Influenza (IM) 2013-08-08 Completed [facility] Preservative Free 00:00:00 Hospita l Meningococcal MCV4P 2013-08-08 Completed [facility] Meningococcal ACWY, 2013-08-08 Completed [facility] Unspecified 00:00:00 Hospital Influenza (IM) 2013-08-08 Completed [facility] Preservative Free 00:00:00 Hospita l Influenza (IM) 2013-08-08 Completed [facility] Preservative Free 00:00:00 Hospita l Meningococcal MCV4P 2013-08-08 Completed [facility] Meningococcal ACWY, 2013-08-08 Completed [facility] Unspecified 00:00:00 Hospital Meningococcal ACWY, 2013-08-08 Completed [facility] Unspecified 00:00:00 Hospital Influenza (IM) 2013-08-08 Completed [facility] Preservative Free 00:00:00 [facility]ospita l Influenza (IM) 2013-08-08 Completed [facility] Preservative Free 00:00:00 Hospita l Meningococcal MCV4P 2013-08-08 Completed [facility] Influenza, seasonal, 2013-08-08 [facility] injectable, 00:00:00 preservative free Meningococcal, MCV4, 2013-08-08 [facility]pleted [facility] unspecified conjugate 00:00:00 formulation(groups A, C, Y and W-135) Meningococcal, 2013-03-20 Completed [facility] Unknown Serogroups [...] 2013-03-20 Completed [facility] Unknown Serogroups 00:00:00 Varicella 2013-03-20 Completed [facility] 00:00:00 Meningococcal MCV4P 2013-03-20 [facility] 00:[facility]:00 Tdap 2013-03-20 [facility] 00[facility]00:00 Tdap 2013-03-20 Completed [facility] Meningococcal MCV4P 2013-03-20 Completed [facility] Meningococcal ACWY, 2013-03-20 Completed [facility] Unspecified 00:00:00 Hospital Tdap 2013-03-20 Completed [facility] 00:[facility]:00 [facility] Varicella 2013-03-20 Completed [facility] 00:00:00 [facility] Varicella 2013-03-20 Completed [facility] 00:00:00 [facility] Tdap 2013-03-20 Completed [facility] 00:00:00 [facility] Meningococcal MCV4P 2013-03-20 Completed [facility] 00:[facility] Meningococcal ACWY, 2013-03-20 Completed [facility] Unspecified 00:00:00 Hospital Tdap 2013-03-20 Completed [facility] 00:[facility]:00 [facility] Varicella 2013-03-20 Completed [facility] 00:00:00 [facility] Varicella 2013-03-20 Completed [facility] 00:00:00 [facility] Tdap 2013-03-20 Completed [facility] 00:00:00 [facility] Meningococcal MCV4P 2013-03-20 Completed [facility] 00:[facility] Meningococcal ACWY, 2013-03-20 Completed [facility] Unspecified 00:00:00 Hospital Tdap 2013-03-20 Completed [facility] 00:[facility]:00 [facility] Varicella 2013-03-20 Completed [facility] 00:00:00 [facility] Varicella 2013-03-20 Completed [facility] 00[facility]00:00 Hospital Meningococcal ACWY, 2013-03-20 Completed [facility] Unspecified 00:00:00 Hospital Tdap 2013-03-20 Completed [facility] 00:00:00 [facility] Varicella 2013-03-20 Completed [facility] 00:00:00 [facility] Varicella 2013-03-20 Completed [facility] 00:00:00 Hospital Tdap 2013-03-20 Completed [facility] 00:00:00 Hospital Meningococcal MCV4P 2013-03-20 Completed [facility] Meningococcal, MCV4, 2013-03-20 [facility] unspecified conjugate 00:00:00 formulation(groups A, C, Y and W-135) Boostrix 5-2.5-18.5 2013-03-20 [facility] Intramuscular 00:00:00 Suspension Varivax 1350 2013-03-20 [facility] PFU/0.5ML 00:00:00 Subcutaneous Injectable Influenza, seasonal, 2012-06-08 [facility] [...] 2012-06-08 [facility]:00 Influenza Trivalent 2012-06-08 Completed [facility] Influenza, 2012-06-08 Completed [facility] Unspecified 00:00:00 Hospital Influenza Trivalent 2012-06-08 Completed [facility] 00:[facility] Influenza, 2012-06-08 Completed [facility] Unspecified 00:00:00 Hospital Influenza Trivalent 2012-06-08 Completed [facility] 00:[facility] Influenza, 2012-06-08 Completed [facility] Unspecified 00:00:00 Hospital Influenza Trivalent 2012-06-08 Completed [facility] 00:[facility] Influenza, 2012-06-08 Completed [facility] Unspecified 00:00:00 [facility] influenza virus 2012-06-08 [facility] vaccine, unspecified 00:00:00 formulation Influenza, seasonal, 2011-05-27 [facility]:00 Influenza, seasonal, 2011-05-27 [facility] inject[facility], 00:00:00 preservative free Influenza, seasonal, 2011-05-27 [facility]pleted [facility] 00:00:00 Influenza, seasonal, 2011-05-27 [facility] inject[facility], 00:00:00 preservative free Influenza, seasonal, 2011-05-27 [facility] 00:00:00 Influenza, seasonal, 2011-05-27 [facility] inject[facility], 00:00:00 preservative free Influenza (IM) 2011-05-27 Completed [facility] Preservative Free 00:00:00 [facility]ospita l Influenza (IM) 2011-05-27 Completed [facility] Preservative Free 00:00:00 [facility]ospita l Influenza (IM) 2011-05-27 Completed [facility] Preservative Free 00:00:00 [facility]ospita l Influenza (IM) 2011-05-27 Completed [facility] Preservative Free 00:00:00 [facility]ospita l Influenza, seasonal, 2011-05-27 [facility]pleted [facility] injectable, 00:00:00 preservative free Influenza, seasonal, 2010-05-14 [...] [facility], [facility]:00 preservative free Influenza (IM) 2010-05-14 Completed [facility] Preservative Free 00:00:00 Hospita l Pneumococcal 2010-05-14 Completed [facility] Conjugate 13-Valent 00:00:00 Hospi heydi Influenza (IM) 2010-05-14 Completed [facility] Preservative Free 00:00:00 Hospita l Pneumococcal 2010-05-14 Completed [facility] Conjugate 13-Valent 00:00:00 Hospi heydi Influenza (IM) 2010-05-14 Completed [facility] Preservative Free 00:00:00 Hospita l Pneumococcal 2010-05-14 Completed [facility] Conjugate 13-Valent 00:00:00 Hospi heydi Pneumococcal 2010-05-14 Completed [facility] Conjugate 13-Valent 00:00:00 Hospi heydi Influenza (IM) 2010-05-14 Completed [facility] Preservative Free 00:00:00 [facility]ospita l PCV 13, pneumococcal 2010-05-14 [facility] conjugate vaccine, 13 00:00:00 valent Influenza, seasonal, 2010-05-14 [facility]pleted [facility] injectable, 00:00:00 preservative free Influenza, seasonal, 2008-05-30 [...] [facility], [facility]:00 preservative free Influenza (IM) 2008-05-30 Completed [facility] Preservative Free 00:00:00 [facility]ospita l Influenza (IM) 2008-05-30 Completed [facility] Preservative Free 00:00:00 [facility]ospita l Influenza (IM) 2008-05-30 Completed [facility] Preservative Free 00:00:00 [facility]ospita l Influenza (IM) 2008-05-30 Completed [facility] Preservative Free 00:00:00 [facility]ospita l Influenza (IM) 2008-05-30 Completed [facility] Preservative Free 00:00:00 [facility]ospita l Influenza (IM) 2008-05-30 Completed [facility] Preservative Free 00:00:00 [facility]ospita l Influenza (IM) 2008-05-30 Completed [facility] Preservative Free 00:00:00 [facility]ospita l Influenza (IM) 2008-05-30 Completed [facility] Preservative Free 00:00:00 [facility]ospita l Influenza, seasonal, 2008-05-30 [facility] injectable, 00:00:00 preservative free Influenza, seasonal, 2007-05-09 [...] [facility], 00:[facility]:00 preservative free Influenza (IM) 2007-05-09 Completed [facility] Preservative Free 00:00:00 [facility]ospita l Influenza (IM) 2007-05-09 Completed [facility] Preservative Free 00:00:00 [facility]ospita l Influenza (IM) 2007-05-09 Completed [facility] Preservative Free 00:00:00 Hospita l Influenza (IM) 2007-05-09 Completed [facility] Preservative Free 00:00:00 [facility]ospita l Influenza, seasonal, 2007-05-09 [facility] inject[facility], 00:00:00 preservative free Influenza, seasonal, 2006-05-19 [...] [facility], [facility]:00 preservative free Influenza (IM) 2006-05-19 Completed [facility] Preservative Free 00:00:00 [facility]ospita l Influenza (IM) 2006-05-19 Completed [facility] Preservative Free 00:00:00 [facility]ospita l Influenza (IM) 2006-05-19 Completed [facility] Preservative Free 00:00:00 Hospita l Influenza (IM) 2006-05-19 Completed [facility] Preservative Free 00:00:00 Hospita l Influenza (IM) 2006-05-19 Completed [facility] Preservative Free 00:00:00 [facility]ospita l Influenza (IM) 2006-05-19 Completed [facility] Preservative Free 00:00:00 [facility]ospita l Influenza (IM) 2006-05-19 Completed [facility] Preservative Free 00:00:00 [facility]ospita l Influenza (IM) 2006-05-19 Completed [facility] Preservative Free 00:00:00 [facility]ospita l Influenza, seasonal, 2006-05-19 [facility] inject[facility], 00:00:00 preservative free Polio, Unspecified 2005-03-09 [facility] D[facility]P 2005-03-09 [facility] 00:00:00 MMR 2005-03-09 [facility] 00:00:00 Polio, Unspecified 2005-03-09 [facility] DTaP 2005-03-09 [facility] 00:00:00 MMR 2005-03-09 [facility] 00:00:00 Polio, Unspecified 2005-03-09 [facility] DTaP 2005-03-09 [facility] 00:00:00 MMR 2005-03-09 [facility] 00:00:00 DTaP, Unspecified 2005-03-[address] [facility] MMR 2005-03-09 Completed [facility] 00:[facility] IPV 2005-03-09 Completed [facility] 00:[facility]:00 [facility] DTaP, Unspecified 2005-03-[address] [facility] MMR 2005-03-09 Completed [facility] 00:[facility] IPV 2005-03-09 Completed [facility] 00:00:00 [facility] DTaP, Unspecified 2005-03-[address] [facility] MMR 2005-03-09 Completed [facility] 00:[facility] IPV 2005-03-09 Completed [facility] 00:[facility]:00 [facility] MMR 2005-03-09 Completed [facility] 00:00:00 [facility] IPV 2005-03-09 Completed [facility] 00:00:00 Hospital DTaP, Unspecified 2005-03-[address] 00:00:00 [facility] Ipol Injection 2005-03-09 [facility] Inject[facility]:00 M-M-R II Subcutaneous 2005-03-09 [facility] Injectable 00:00:00 DTaP, unspecified 2005-03-09 [facility] formulation 00:00:00 Meningococcal, 2004-12-16 [facility] Unknown [...] MPSV4 2004-12-16 [facility] Meningococcal 2004-12-16 Completed [facility] Polysaccharide 00:00:00 Hospital Meningococcal 2004-12-16 Completed [facility] Polysaccharide 00:00:00 [facility] Pneumococcal 2004-12-16 Completed [facility] Polysaccharide 00:00:00 Hospital Meningococcal 2004-12-16 Completed [facility] Polysaccharide 00:00:00 Hospital Meningococcal 2004-12-16 Completed [facility] Polysaccharide 00:00:00 Hospital Pneumococcal 2004-12-16 Completed [facility] Polysaccharide 00:00:00 Hospital Meningococcal 2004-12-16 Completed [facility] Polysaccharide 00:00:00 Hospital Meningococcal 2004-12-16 Completed [facility] Polysaccharide 00:00:00 Hospital Pneumococcal 2004-12-16 Completed [facility] Polysaccharide 00:00:00 Hospital Meningococcal 2004-12-16 Completed [facility] Polysaccharide 00:00:00 Hospital Pneumococcal 2004-12-16 Completed [facility] Polysaccharide 00:00:00 Hospital Meningococcal 2004-12-16 Completed [facility] Polysaccharide 00:00:00 [facility] Meningo ([place]) 2004-12-16 [facility] Pneumococcal 2004-12-16 [facility] polysaccharide 00:00:00 vaccine, 23 valent Influenza, seasonal, 2003-06-05 [facility] [...] [facility], 00:[facility]:00 preservative free Influenza (IM) 2003-06-05 Completed [facility] Preservative Free 00:00:00 Hospita l Influenza (IM) 2003-06-05 Completed [facility] Influenza (IM) 2003-06-05 Completed [facility] Influenza (IM) 2003-06-05 Completed [facility] 00:[facility]:00 [facility] Influenza (IM) 2003-06-05 Completed [facility] 00:[facility]:00 [facility] Influenza (IM) 2003-06-05 Completed [facility] 00:[facility]:00 [facility] Influenza (IM) 2003-06-05 Completed [facility] 00:[facility]:00 [facility] Influenza (IM) 2003-06-05 Completed [facility] 00:[facility]:00 [facility] Influenza, seasonal, 2003-06-05 [facility] injectable, [facility]:00 preservative free Influenza, seasonal, 2002 [facility] [...] Influ[facility], [facility] Un[facility] 00:[facility]:00 Influenza Trivalent 2002 Completed [facility] Influenza, 2002 Completed [facility] 00:00:00 [facility] Influenza Trivalent 2002 Completed [facility] 00:[facility]:00 [facility] Influenza, 2002 Completed [facility] Unspecified 00:00:00 [facility] Influenza Trivalent 2002 Completed [facility] 00:00:00 [facility] Influenza, 2002 Completed [facility] Unspecified 00:00:00 [facility] Influenza Trivalent 2002 Completed [facility] 00:00:00 [facility] Influenza, 2002 Completed [facility] Un[facility] 00:00:00 [facility] influenza virus 2002 [facility] vaccine, unspecified 00:00:00 formulation Influenza, seasonal, 2001-05-30 [facility]pleted [facility] [...] MPSV4 2001-05-30 [facility]pleted [facility] Influenza Trivalent 2001-05-30 Completed [facility] 00:[facility]:00 [facility] Influenza, 2001-05-30 Completed [facility] Un[facility] 00:00:00 Hospital Meningococcal 2001-05-30 Completed [facility] Polysaccharide 00:00:00 Hospital Meningococcal 2001-05-30 Completed [facility] Polysaccharide 00:00:00 Hospital Pneumococcal 2001-05-30 Completed [facility] Polysaccharide 00:00:00 Hospital Influenza Trivalent 2001-05-30 Completed [facility] 00:00:00 [facility] Influenza, 2001-05-30 Completed [facility] Unspecified 00:00:00 Hospital Meningococcal 2001-05-30 Completed [facility] Polysaccharide 00:00:00 Hospital Meningococcal 2001-05-30 Completed [facility] Polysaccharide 00:00:00 Hospital Pneumococcal 2001-05-30 Completed [facility] Polysaccharide 00:00:00 Hospital Influenza Trivalent 2001-05-30 Completed [facility] 00:00:00 [facility] Influenza, 2001-05-30 Completed [facility] Unspecified 00:00:00 Hospital Meningococcal 2001-05-30 Completed [facility] Polysaccharide 00:00:00 Hospital Meningococcal 2001-05-30 Completed [facility] Polysaccharide 00:00:00 Hospital Pneumococcal 2001-05-30 Completed [facility] Polysaccharide 00:00:00 Hospital Meningococcal 2001-05-30 Completed [facility] Polysaccharide 00:00:00 Hospital Pneumococcal 2001-05-30 Completed [facility] Polysaccharide 00:00:00 Hospital Influenza Trivalent 2001-05-30 Completed [facility] 00:[facility]:00 [facility] Influenza, 2001-05-30 Completed [facility] Unspecified 00:00:00 Hospital Meningococcal 2001-05-30 Completed [facility] Polysaccharide 00:00:00 Hospital influenza virus 2001-05-30 [facility]pleted [facility] vaccine, unspecified 00:00:00 formulation Meningo (Menomune) 2001-05-30 [facility]pleted [facility]:00 Pneumococcal 2001-05-30 [facility]pleted [facility] polysaccharide 00:00:00 vaccine, 23 valent Pneumococcal 2000-08-09 Completed [facility] Conjugate PCV 13 00:00:00 Pneumococcal 2000-08-09 Completed [facility] Conjugate PCV 7 00:00:00 Pneumococcal 2000-08-09 Completed [facility] Conjugate PCV 13 00:00:00 Pneumococcal 2000-08-09 Completed [facility] Conjugate PCV 7 00:00:00 Pneumococcal 2000-08-09 Completed [facility] Conjugate PCV 13 00:00:00 Pneumococcal 2000-08-09 Completed [facility] Conjugate PCV 7 00:00:00 Pneumococcal 2000-08-09 Completed [facility] Conjugate 00:00:00 Hospital Pneumococcal 2000-08-09 Completed [facility] Conjugate 00:00:00 Hospital Pneumococcal 2000-08-09 Completed [facility] Conjugate 00:00:00 Hospital Pneumococcal 2000-08-09 Completed [facility] Conjugate 00:00:00 Hospital Pneumo (Prevnar 7) 2000-08-09 Completed [facility]:00 Vital Signs Vital Name Observation Time Observation Value Comments Source Systolic blood 2022-04-06 101 mm[Hg] [facility] pressure 21:15:00 Diastolic blood 2022-04-06 56 mm[Hg] [facility] pressure 21:15:00 Heart rate 2022-04-06 74 /min [facility] 21:15:00 Body temperature 2022-04-06 36.83 Machelle [facility] 21:15:00 Oxygen saturation 2022-04-06 99 /min [facility] in Arterial blood 21:15:00 by Pulse oximetry Respiratory rate 2022-04-06 16 /min [facility] 19:12:00 Body height 2022-04-06 167.6 cm [facility] 19:12:00 Body weight 2022-04-06 68.947 kg [facility] 19:12:00 BMI 2022-04-06 24.53 kg/m2 [facility] 19:12:00 Systolic blood 2022-05-06 109 mm[Hg] [facility] pressure 08:55:00 Hospital Diastolic blood 2022-05-06 58 mm[Hg] [facility] pressure 08:55:00 Hospital Heart rate 2022-05-06 89 /min [facility] 08:55:00 Hospital Body temperature 2022-05-06 36.78 Machelle [facility] 08:55:00 Hospital Respiratory rate 2022-05-06 19 /min [facility] 08:55:00 Hospital Oxygen saturation 2022-05-06 99 /min [facility] in Arterial blood 08:55:00 Hospital by Pulse oximetry Height 2022-05-06 167.64 [facility] BMI Calculated 2022-05-06 [facility] shakira 02:30:00 Weight 2022-05-06 [facility] 02:30:00 Systolic (mm Hg) 2022-05-06 [facility] rmann 02:30:00 Diastolic (mm Hg) 2022-05-06 [facility] ermann 02:30:00 Heart Rate 2022-05-06 [facility] 02:30:00 Respitory Rate 2022-05-06 [facility] shakira 02:30:00 Temperature Oral 2022-05-06 98.2 F [facility] rmann (F) 02:30:00 Systolic (mm Hg) 2022-04-19 [facility] rmann 17:00:00 Diastolic (mm Hg) 2022-04-19 [facility] ermann 17:00:00 Temperature Oral 2022-04-19 98.1 F [facility] rmann (F) 17:00:00 Systolic (mm Hg) 2022-04-19 [facility] rmann 16:37:00 Diastolic (mm Hg) 2022-04-19 [facility] ermann 16:37:00 Heart Rate 2022-04-19 [facility] 16:37:00 Respitory Rate 2022-04-19 [facility] shakira 16:37:00 Height 2022-04-19 167.64 cm [...] (F) 10:02:20 Temperature Oral 2022-01-17 101.3 F [facility] ([facility] 04:32:56 Systolic (mm Hg) 2022-01-17 [facility] 04:32:48 Diastolic (mm Hg) 2022-01-17 [facility] 04:32:48 Height 2022-01-12 167.64 cm [facility] 00:35:00 Weight 2022-01-12 [facility] 00:35:00 BMI Calculated 2022-01-12 [facility] 00:35:00 Height 2022-01-11 167.64 cm [facility] 07:28:00 BMI Calculated 2022-01-11 [facility] shakira 07:28:00 Weight 2022-01-11 [facility] 07:28:00 Systolic (mm Hg) 2022-01-10 [facility] rmann 16:21:00 Diastolic (mm Hg) 2022-01-10 [facility] ermann 16:21:00 Respitory Rate 2022-01-10 [facility] shakira 16:21:00 Temperature Oral 2022-01-10 98 F [facility] rmann (F) 16:21:00 Systolic (mm Hg) 2022-01-10 [facility] rmann 13:25:00 Diastolic (mm Hg) 2022-01-10 [facility] ermann 13:25:00 Respitory Rate 2022-01-10 [facility] shakira 13:25:00 Height 2022-01-10 167.64 cm [facility] 12:56:00 BMI Calculated 2022-01-10 [facility] shakira 12:56:00 Weight 2022-01-10 [facility] 12:56:00 Systolic (mm Hg) 2022-01-10 [facility] rmann 12:56:00 Diastolic (mm Hg) 2022-01-10 [facility] ermann 12:56:00 Heart Rate 2022-01-10 [facility] 12:56:00 Respitory Rate 2022-01-10 [facility] shakira 12:56:00 Temperature Oral 2022-01-10 97.2 F [facility] rmann (F) 12:56:00 Systolic blood 2021-10-31 111 mm[Hg] [facility] pressure 15:48:18 Hospital Diastolic blood 2021-10-31 76 mm[Hg] [facility] pressure 15:48:18 Hospital Heart rate 2021-10-31 105 /min [facility] 15:48:18 Hospital Body temperature 2021-10-31 37.11 Machelle [facility] 15:48:18 Hospital Respiratory rate 2021-10-31 22 /min [facility] 15:48:18 Hospital Oxygen saturation 2021-10-31 97 /min [facility] in Arterial blood 15:48:18 Hospital by Pulse oximetry Body height 2021-10-26 167.6 cm [facility] 16:25:00 Hospital Body weight 2021-10-26 70.761 kg [facility] 16:25:00 Hospital BMI 2021-10-26 25.18 kg/m2 [facility] 16:25:00 Hospital Heart rate 2021-09-02 154 /min [facility] 03:02:00 Hospital Systolic blood 2021-09-02 137 mm[Hg] [facility] pressure 01:29:23 [facility] Diastolic blood 2021-09-02 65 mm[Hg] [facility] pressure 01:29:23 Hospital Body temperature 2021-09-02 38.78 Machelle [facility] 01:29:23 Hospital Respiratory rate 2021-09-02 16 /min [facility] 01:29:23 [facility] Oxygen saturation 2021-09-02 93 /min [facility] in Arterial blood 01:29:23 Hospital by Pulse oximetry Body height 2021-08-31 167.6 cm [facility] 19:38:00 Hospital Body weight 2021-08-31 70.761 kg [facility] 19:38:00 [facility] BMI 2021-08-31 25.18 kg/m2 [facility] 19:38:00 Hospital Weight 2021-03-18 [facility] 04:56:00 Systolic (mm Hg) 2021-03-18 [facility] 04:56:00 Diastolic (mm Hg) 2021-03-18 [facility] 04:56:00 Heart Rate 2021-03-18 [facility] 04:56:00 Respitory Rate 2021-03-18 [facility] 04:56:00 Temperature Oral 2021-03-18 97.8 F [facility] rmann (F) 04:56:00 Respitory Rate 2021-01-24 [facility] 18:19:00 Heart Rate 2021-01-24 [facility] 18:19:00 Systolic (mm Hg) 2021-01-24 [facility] 18:19:00 Diastolic (mm Hg) 2021-01-24 [facility] 18:19:00 Height 2021-01-24 167.64 cm [facility] 15:45:00 BMI Calculated 2021-01-24 [facility] 15:45:00 Weight 2021-01-24 [facility] 15:45:00 Systolic (mm Hg) 2021-01-24 [facility] 15:45:00 Diastolic (mm Hg) 2021-01-24 [facility] 15:45:00 Heart Rate 2021-01-24 [facility] 15:45:00 Respitory Rate 2021-01-24 [facility] sh[facility]ira 15:45:00 Temperature Oral 2021-01-24 97.8 F [facility] (F) 15:45:00 Body mass index [...] rmann 20:48:00 Diastolic (mm Hg) 2020-10-23 [facility] ermann 20:48:00 Heart Rate 2020-10-23 [facility] 20:48:00 Respitory Rate 2020-10-23 [facility] 20:48:00 Height 2020-10-23 165.1 cm Vishal Toman n 18:21:00 BMI Calculated 2020-10-23 [facility] 18:21:00 Weight 2020-10-23 [facility] 18:21:00 Systolic (mm Hg) 2020-10-23 [facility] 18:21:00 Diastolic (mm Hg) 2020-10-23 [facility] 18:21:00 Heart Rate 2020-10-23 [facility] 18:21:00 Respitory Rate 2020-10-23 [facility] 18:21:00 Temperature Oral 2020-10-23 98 F [facility] (F) 18:21:00 Body height 2020-07-11 65 [in_us] [facility] 10:20:00 Systolic blood 2020-04-25 107 mm[Hg] [facility]; [facility] pressure 09:20:00 Position: Sitting Diastolic blood 2020-04-25 65 mm[Hg] [facility] [place] 09:20:00 Position: Sitting Body [...] 09:20:00 Systolic blood 2020-01-11 104 mm[Hg] [facility]: [place] 09:50:00 Position: Sitting Diastolic blood 2020-01-11 54 mm[Hg] Location[facility] [place] [facility] pressure 09:50:00 Position: Sitting Body [...] 09:50:00 O2 SAT 2020-01-11 100 % Source: [facility] 09:50:00 BP Systolic 2019-08-24 128 mm[Hg] Location: [place]; [facility] 11:05:00 Position: Sitting BP Diastolic 2019-08-24 77 mm[Hg] Location: [place]; [facility] 11:05:00 Position: Sitting Height 2019-08-24 65.83 [...] 11:05:00 Temperature Oral 2019-07-31 99.6 F [facility] (F) 04:36:00 Heart Rate 2019-07-31 [facility] 04:36:00 Respitory Rate 2019-07-31 [facility] sh[facility] 04:36:00 Systolic (mm Hg) 2019-07-31 [facility] 04:36:00 Diastolic (mm Hg) 2019-07-31 [facility] 04:36:00 Systolic (mm Hg) 2019-07-31 [facility] 03:01:00 Diastolic (mm Hg) 2019-07-31 [facility] 03:01:00 Heart Rate 2019-07-31 [facility] 03:01:00 Respitory Rate 2019-07-31 [facility] sh[facility]ira 03:01:00 Temperature Oral 2019-07-31 100.2 F [facility] (F) 03:01:00 Weight 2019-07-31 [facility] 03:01:00 BP Systolic 2019-06-15 106 mm[Hg] Location: [place]; [facility] 09:43:00 Position: Sitting BP Diastolic 2019-06-15 63 mm[Hg] Location: [place]; [facility] 09:43:00 Position: Sitting Height 2019-06-15 [...] 09:43:00 O2 SAT 2019-06-15 97 % Source: RA [facility] 09:43:00 Procedures Procedure Date / Time Performing Clinician Source Performed [place] RESUPERF WND FACE 2.6-5 2022-05-06 08:55:00 fl ParkinsonShamir [facility] CM [facility] CERVICAL SPINE WO 2022-05-06 07:53:44 [facility] CONTRAST Pito CT HEAD WO CONTRAST 2022-05-06 07:53:32 Critical access hospital [facility] [place] [place] P[place] CT MAXILLOFACIAL WO 2022-05-06 07:53:22 [facility] CONTRAST Pito COMPREHENSIVE METABOLIC 2022-04-06 20:15:[address] [facility] H ealth PANEL LACTATE DEHYDROGENASE 2022-04-06 20:15:[address] [facility] He lth CBC AND DIFFERENTIAL 2022-04-06 20:15:[address] [facility] Heal th RETICULOCYTES 2022-04-06 20:15:[address] [facility] URINALYSIS WITH REFLEX 2022-04-06 20:05:[address] [facility] alth MICROSCOPIC CBC WITH PLATELET AND 2021-10-31 11:18:00 [facility] DIFFERENTIAL [place] CBC WITH PLATELET AND 2021-10-30 11:47:00 [facility] DIFFERENTIAL BASIC METABOLIC PANEL 2021-10-30 11:47:00 [facility] ESTIMATED GFR 2021-10-30 11:47:00 [facility] Ho spital RETICULOCYTE COUNT 2021-10-30 11:41:00 [facility] Manuel HEMOGLOBIN & HEMATOCRIT 2021-10-27 09:31:00 [facility] RETICULOCYTE COUNT 2021-10-27 09:31:00 [facility] PROCALCITONIN 2021-10-26 21:55:00 Landy Santacruz [facility] Mary BLOOD CULTURE, AEROBIC & 2021-10-26 20:55:00 Landy Santacruz [facility] ANAEROBIC Mary COVID-19 QUALITATIVE 2021-10-26 20:54:00 Nancy, [facility] RT-PCR BLOOD CULTURE, AEROBIC & 2021-10-26 20:54:00 Landy Santacruz [facility] ANAEROBIC Mary URINE CULTURE 2021-10-26 18:21:00 [facility] URINALYSIS SCREEN AND 2021-10-26 18:21:00 [facility] MICROSCOPY, WITH REFLEX TO CULTURE XR CHEST 2 VW 2021-10-26 18:[facility] 2021-10-26 17:08:00 [facility] PANEL CBC WITH PLATELET AND 2021-10-26 17:08:00 [facility] DIFFERENTIAL RETICULOCYTE COUNT 2021-10-26 17:08:00 [facility] LDH 2021-10-26 17:08:00 [facility] ESTIMATED GFR 2021-10-26 17:08:00 [facility] MANUAL DIFFERENTIAL 2021-10-26 17:08:00 [facility] BLOOD SMEAR CONSULT 2021-10-26 17:08:00 [facility] BASIC METABOLIC PANEL 2021-09-09 12:11:00 Lis [facility] LDH 2021-09-09 12:11:00 Erendira Kitchen [facility] ESTIMATED GFR 2021-09-09 12:11:00 [facility] MRI UPPER EXTREMITY JOINT 2021-09-09 05:19:21 Penny Multani [facility] W WO CONTRAST LEFT CT ABDOMEN PELVIS W 2021-09-09 04:07:23 [facility] CONTRAST BASIC METABOLIC PANEL 2021-09-08 12:07:00 Lis [facility] CBC WITH PLATELET AND 2021-09-08 12:07:00 Vanessa Mult[facility] DIFFERENTIAL ESTIMATED GFR 2021-09-08 12:07:00 [facility] LDH 2021-09-08 12:07:00 [facility] MANUAL DIFFERENTIAL 2021-09-08 12:07:00 [facility] TRANSFUSE RED BLOOD CELLS 2021-09-08 04:35:00 [facility] TYPE AND SCREEN 2021-09-07 22:25:00 [facility] PREPARE RBC 2021-09-07 22:25:00 [facility] BLOOD CULTURE, AEROBIC & 2021-09-07 18:31:00 [facility] ANAEROBIC PROCALCITONIN 2021-09-07 18:31:00 [facility] BLOOD CULTURE, AEROBIC & 2021-09-07 18:30:00 [facility] ANAEROBIC BASIC METABOLIC PANEL 2021-09-07 11:55:[facility] AND 2021-09-07 11:55:00 [facility] DIFFERENTIAL LDH 2021-09-07 11:55:00 Danette Gilmore [facility] BLOOD SMEAR CONSULT 2021-09-07 11:55:00 [facility] ESTIMATED GFR 2021-09-07 11:55:00 Giancarlo [facility] spital MANUAL DIFFERENTIAL 2021-09-07 11:55[facility] 2021-09-07 11:46:00 [facility] HAPTOGLOBIN 2021-09-07 11:46:00 [facility] VANCOMY[facility]EV[facility], TROUGH 2021-09-06 21:55:00 [facility] XR SHOULDER 2+ VW LEFT 2021-09-06 19:23:58 [facility] TRACHOMATIS, TMA 2021-09-06 14:40:[facility] WITH [facility]LET AND 2021-09-06 14:09:00 [facility] DIFFERENTIAL [place] MANUAL DIFFERENTIAL 2021-09-06 [facility]EL 2021-09-06 11:35:00 [facility] ESTIMATED GFR 2021-09-06 11:35:00 [facility] GONORRHOEAE CULTURE 2021-09-06 01:12:00 [facility] CBC WITH PLATELET AND 2021-09-05 21:03:00 [facility] DIFFERENTIAL VANCOMYCIN LEVEL, TROUGH 2021-09-05 21:03:00 [facility] MANUAL DIFFERENTIAL 2021-09-05 21:03:00 [facility] CBC WITH PLATELET AND 2021-09-05 12:18:00 [facility] DIFFERENTIAL COMPREHENSIVE METABOLIC 2021-09-05 12:18:00 [facility] PANEL ESTIMATED GFR 2021-09-05 12:18:00 [facility] spital MANUAL DIFFERENTIAL 2021-09-05 12:18:00 [facility] GROUP A STREP, RAPID 2021-09-04 22:18:00 [facility] ANTIGEN MRSA PCR 2021-09-04 22:18:00 [facility] STREP SCREEN CULTURE 2021-09-04 22:18:00 [facility] RESPIRATORY PATHOGEN PANEL 2021-09-04 15:55:00 [facility] WITH COVID-19 RT-PCR PROCALCITONIN 2021-09-04 15:55:00 [facility] COMPREHENSIVE METABOLIC 2021-09-03 18:53:00 [facility] Vanessa [facility] PANEL ESTIMATED GFR 2021-09-03 18:53:00 Vanessa Mult[facility] US DUPLEX VENOUS LOWER 2021-09-03 17:30:00 [facility] EXTREMITY BILATERAL CT ANGIOGRAM PE CHEST 2021-09-02 17:51:00 [facility] CBC WITH PLATELET AND 2021-09-02 16:06:00 [facility] DIFFERENTIAL COMPREHENSIVE METABOLIC 2021-09-02 16:06:00 [facility] PANEL ESTIMATED GFR 2021-09-02 16:06:00 [facility] MANUAL DIFFERENTIAL 2021-09-02 16:06:00 [facility] BLOOD SMEAR CONSULT 2021-09-02 16:06:00 [facility] ANTI-SPIKE IGG 2021-09-02 11:55:00 [facility] ANTIBODY TITER All ZZCOVID-19 SEROLOGY 2021-09-02 11:55:00 [facility] PATIENT SURVEILLANCE All XR CHEST 1 VW PORTABLE 2021-09-02 05:53:[address] [facility] Mariela URINE CULTURE 2021-09-02 04:06:00 [facility] URINALYSIS SCREEN AND 2021-09-02 04:06:00 [facility] MICROSCOPY, WITH REFLEX TO CULTURE URINALYSIS SCREEN AND 2021-09-02 04:06:00 [facility] MICROSCOPY, WITH REFLEX TO CULTURE BLOOD CULTURE, AEROBIC & 2021-09-01 23:50:00 [facility] ANAEROBIC TROPONIN T 2021-08-31 23:43:00 [facility] TROPONIN T 2021-08-31 20:27:00 [facility] COVID-19 QUALITATIVE 2021-08-31 17:07:00 Kwabena Mariano [facility] RT-PCR XR CHEST 2 VW 2021-08-31 14:51:00 Kwabena Mariano [facility] HC COMPLETE BLD COUNT 2021-08-31 14:32:00 [facility] W/AUTO DIFF COMPREHENSIVE METABOLIC 2021-08-31 14:32:00 [facility] PANEL TROPONIN T 2021-08-31 14:32:00 [facility] CREATINE KINASE, TOTAL 2021-08-31 14:32:00 [facility] ([facility]) LDH 2021-08-31 14:32:00 [facility] RETICULOCYTE COUNT 2021-08-31 14:32:00 [facility] ESTIMATED GFR 2021-08-31 14:32:00 [facility] [place] CRITICAL CARE, E/M 2021-08-31 14:22:04 [facility] 30-74 MINUTES ECG ED PRELIMINARY 2021-08-31 14:22:04 [facility] INTERPRETATION ECG 12-LEAD 2021-08-31 14:14:08 [facility] POC URINALYSIS DIPSTICK 2021-05-21 22:36:00 Barbara Harding [facility] CT ABDOMEN PELVIS W 2021-05-09 21:58:52 [facility] CONTRAST XR CHEST 2 VW 2021-05-09 20:51:54 [facility] URINE CULTURE 2021-05-09 20:47:00 [facility] HC COMPLETE BLD COUNT 2021-05-09 20:47:[address] [facility] [place] W/AUTO DIFF COMPREHENSIVE METABOLIC 2021-05-09 20:47:00 [facility] PANEL RETICULOCYTE COUNT 2021-05-09 20:47:00 [facility] URINALYSIS SCREEN AND 2021-05-09 20:47:[address] [facility] [place] MICROSCOPY, WITH REFLEX TO CULTURE TROPONIN 2021-05-09 20:47:00 [facility] ESTIMATED GFR 2021-05-09 20:47:00 [facility] ECG 12-LEAD 2021-05-09 20:35:32 [facility] ECG ED PRELIMINARY 2021-05-09 20:16:52 [facility] INTERPRETATION URINALYSIS, COMPLETE, WITH 2021-02-24 20:14:00 Barbara Harding [facility] REFLEX TO CULTURE MICROSCOPIC EXAMINATION 2021-02-24 20:14:00 Barbara Harding [facility] XR HIP 2-3 VIEWS LEFT 2021-02-24 18:18:05 Barbara Harding [facility] XR LUMBAR SPINE COMPLETE 2021-02-24 18:13:50 Barbara Harding [facility] 4+ VW POC URINALYSIS DIPSTICK 2021-02-24 17:17:00 Barbara Harding [facility] [QL] CBC (INCLUDES 2020-10-24 00:00:00 [facility] DIFF/PLT) [QL] CMP W/EGFR 2020-10-24 00:00:00 [facility] [QL] RETICULOCYTE COUNT 2020-10-24 00:00:00 [facility] [QL] FERRITIN 2020-10-24 00:00:00 [facility] [L] Prot+CreatU (Random) 2020-10-24 00:00:00 [facility] [QL] LD 2020-10-24 00:00:00 [facility] [L] Hemoglobinopathy 2020-10-24 00:00:00 [facility] [place] [QL] VITAMIN D, 2020-10-24 00:00:00 [facility] 25-HYDROXY, LC/MS/MS HC COMPLETE BLD COUNT 2020-09-14 11:25:00 [facility] W/AUTO DIFF COMPREHENSIVE METABOLIC 2020-09-14 11:25:00 Leatha Aguilera [facility] PANEL LDH 2020-09-14 11:25:00 Erendira Kitchen Ho spital ESTIMATED GFR 2020-09-14 11:25:00 [facility] SME[facility] REVIEW 2020-09-14 11:25:00 Achuo, [facility] BLOOD SMEAR CONSULT 2020-09-14 11:25:00 [facility], [facility] HC COMPLETE BLD COUNT 2020-09-13 10:31:00 [facility], [facility] W/AUTO DIFF COMPREHENSIVE METABOLIC 2020-09-13 10:31:00 [facility] PANEL LDH 2020-09-13 10:31:00 Erendira Kitchen [facility] ESTIMATED GFR 2020-09-13 10:31:00 [facility], [facility] SMEAR REVIEW 2020-09-13 10:31:00 [facility] TRANSFUSE RED BLOOD CELLS 2020-09-13 04:50:00 [facility], [facility] D-DIMER 2020-09-12 19:59:00 [facility], [facility] CRP HIGH SENSITIVITY 2020-09-12 19:59:00 [facility], [facility] LDH 2020-09-12 19:59:00 [facility], [facility] PREPARE RBC 2020-09-12 19:59:00 [facility] HEMOGLOBIN ELECTROPHORESIS 2020-09-12 19:59:00 [facility] AND RBC HEMOGLOBIN F, QUANTITATIVE 2020-09-12 19:59:00 [facility] HEMOGLOBIN A2 2020-09-12 19:59:00 Erendira Kitchen [facility] HC COMPLETE BLD COUNT 2020-09-12 11:06:00 [facility], [facility] W/AUTO DIFF COMPREHENSIVE METABOLIC 2020-09-12 11:06:00 [facility] PANEL LIPID PANEL 2020-09-12 11:06:00 [facility] MAGNESIUM LEVEL 2020-09-12 11:06:00 [facility] PHOSPHORUS LEVEL 2020-09-12 11:06[facility]00 [facility] EST[facility]FR 2020-09-12 11:06:00 [facility] B NATRIURETIC PEP, I-STAT 2020-09-12 11:06:00 [facility] SMEAR REVIEW 2020-09-12 11:06:00 [facility] BLOOD SMEAR CONSULT 2020-09-12 11:06:00 [facility] TROPONIN, I-STAT 2020-09-12 07:40:00 [facility] URINE DRUGS OF ABUSE 2020-09-12 03:40:00 [facility] SCREEN ECG 12-LEAD 2020-09-12 01:20:03 [facility] LACTIC ACID LEVEL, SEPSIS 2020-09-12 01:19:00 [facility] - NOW AND REPEAT 2X EVERY 3 HOURS LACTIC ACID LEVEL, SEPSIS 2020-09-11 22:51:00 [facility] - NOW AND REPEAT 2X EVERY 3 HOURS TROPONIN, I-STAT 2020-09-11 22:51:00 [facility] URINE CULTURE 2020-09-11 21:43:00 [facility] URINALYSIS SCREEN AND 2020-09-11 21:43:00 [facility] MICROSCOPY, WITH REFLEX TO CULTURE LDH 2020-09-11 20:15:00 [facility] RETICULOCYTE COUNT 2020-09-11 20:15:00 [facility] RESPIRATORY PATHOGEN PANEL 2020-09-11 20:01:00 [facility] WITH COVID-19 RT-PCR BLOOD CULTURE, AEROBIC & 2020-09-11 20:00:00 [facility] ANAEROBIC XR CHEST 1 VW PORTABLE 2020-09-11 19:40:00 [facility] BLOOD CULTURE, AEROBIC & 2020-09-11 19:39:00 [facility] ANAEROBIC LACTIC ACID LEVEL, SEPSIS 2020-09-11 19:38:00 [facility] - NOW AND REPEAT 2X EVERY 3 HOURS HC COMPLETE BLD COUNT 2020-09-11 19:38:00 [facility]/AUTO DIFF COMPREHENSIVE METABOLIC 2020-09-11 19:38:00 [facility] PANEL PARTIAL THROMBOPLASTIN 2020-09-11 19:38:00 [facility] TIME (PTT) PROTHROMBIN TIME WITH INR 2020-09-11 19:38:00 [facility] ESTIMATED GFR 2020-09-11 19:38:00 [facility] B NATRIURETIC PEP, I-STAT 2020-09-11 19:38:00 [facility] TROPONIN, I-STAT 2020-09-11 19:38:00 [facility] SMEAR REVIEW 2020-09-11 19:38:00 [facility] ECG 12-LEAD 2020-09-11 19:15:36 [facility] ECG ED PRELIMINARY 2020-09-11 19:05:40 [facility] INTERPRETATION XR CHEST 2 VW 2020-09-01 21:30:23 [facility] TTE COMPLETE, WO CONTRAST, 2020-09-01 21:15:00 Barbara Harding [facility] W DOPPLER (62681) [QL] CBC (INCLUDES 2020-04-25 00:00:00 [facility] [...] with 2019-06-15 00:00:00 [facility] Doppler 31179 [QLH] CBC (INCLUDES 2019-06-15 00:00:00 [facility] [...] Source Future Scheduled 2022-07-18 COVID-19 VACCINE (#1) [facility] Test 02:09:20 [code = COVID-19 VACCINE (#1)] Future Scheduled 2022-07-18 Hepatitis C screening [facility] Test 02:09:20 (procedure) [code = 702146503] Future Scheduled 2022-07-18 INFLUENZA VACCINE Method [facility] Test 02:09:20 [code = INFLUENZA VACCINE] Future Scheduled 2022-07-18 Pneumococcal Vaccine: [facility] Test 02:09:20 Pediatrics (0 to 5 Years) and At-Risk Patients (6 to 64 Years) (4 - PPSV23 if available, else PCV20) [code = Pneumococcal Vaccine: Pediatrics (0 to 5 Years) and At-Risk Patients (6 to 64 Years) (4 - PPSV23 if available, else PCV20)] Future Scheduled 2022-07-18 COVID-19 VACCINE (#1) [facility] Test 02:09:20 [code = COVID-19 VACCINE (#1)] Future Scheduled 2022-07-18 Hepatitis C screening [facility] Test 02:09:20 (procedure) [code = 997983970] Future Scheduled 2022-07-18 INFLUENZA VACCINE Method [facility] Test 02:09:20 [code = INFLUENZA VACCINE] Future Scheduled 2022-07-18 Pneumococcal Vaccine: [facility] Test 02:09:20 Pediatrics (0 to 5 Years) and At-Risk Patients (6 to 64 Years) (4 - PPSV23 if available, else PCV20) [code = Pneumococcal Vaccine: Pediatrics (0 to 5 Years) and At-Risk Patients (6 to 64 Years) (4 - PPSV23 if available, else PCV20)] Future Scheduled 2022-04-09 HEPATITIS B VACCINES Met [facility] Test 14:06:06 (1 of 3 - 3-dose series) [code = HEPATITIS B VACCINES (1 of 3 - 3-dose series)] Future Scheduled 2022-04-09 COVID-19 VACCINE (#1) [facility] Test 14:06:06 [code = COVID-19 VACCINE (#1)] Future Scheduled 2022-04-09 Hepatitis C screening [facility] Test 14:06:06 (procedure) [code = [id number]] Future Scheduled 2022-04-09 INFLUENZA VACCINE [facility] Test 14:06:06 [code = INFLUENZA VACCINE] Future Scheduled 2022-04-09 Pneumococcal Vaccine: [facility] Test 14:06:06 Pediatrics (0 to 5 Years) and At-Risk Patients (6 to 64 Years) (4 - PPSV23 or PCV20) [code = Pneumococcal Vaccine: Pediatrics (0 to 5 Years) and At-Risk Patients (6 to 64 Years) (4 - PPSV23 or PCV20)] Future Scheduled 2021-09-01 COVID-19 VACCINE (1) Met [facility] Test 22:50:03 [code = COVID-19 VACCINE (1)] Future Scheduled 2021-09-01 Hepatitis C screening [facility] Test 22:50:03 (procedure) [code = [id number]] Future Scheduled 2021-09-01 INFLUENZA VACCINE [facility] Test 22:50:03 [code = INFLUENZA VACCINE] Diagnostic Test 2019-07-19 [N] 2D Echo complete, [facility] Pending 00:00:00 with Doppler 33562 [code = [N] 2D Echo complete, with Doppler 43481] Diagnostic Test 2019-06-15 [N] 2D Echo complete, [facility] Pending 00:00:00 with Doppler 22415 [code = [N] 2D Echo complete, with Doppler 96874] Diagnostic Test 2019-06-15 [N] 2D Echo complete, [facility] Pending 00:00:00 with Doppler 18209 [code = [N] 2D Echo complete, with Doppler 75596] Diagnostic Test 2019-06-15 [N] 2D Echo complete, [facility] Pending 00:00:00 with Doppler 03606 [code = [N] 2D Echo complete, with Doppler 39990] Encounters Start End Encounter Admission Attending Care Care Encounter Source Date/Time Date/Time Type Type Clinicians Facility Department ID 2022-08-30 Outpatient [facility] [id number] [place] 10:02:43 [id number] [facility] 2022-08-18 Outpatient [facility] [id number] [place] 07:59:01 [id number] [facility] 2022-08-13 Outpatient [facility] [id number] [place] 09:53:32 [id number] [facility] 2022-07-16 Outpatient [facility] [id number] [place] 09:17:38 [id number] [facility] 2021-10-19 Outpatient ONUEGBU, [facility] [id number] [place] 10:22:30 [facility] 2021-09-24 Outpatient MEHDI, [facility] [id number] [place] 14:53:10 MAKI [facility] 2021-08-14 Outpatient YIN, [facility] [id number] [place] 10:44:37 [facility] 2021-08-14 Outpatient ONUEGBU, [facility] [id number] [place] 10:42:47 [facility] 2021-08-14 Outpatient RYAN, [facility] [id number] [place] 09:59:19 [facility] 2021-02-17 Outpatient YIN, [facility] [id number] [place] 13:08:57 [facility] 2021-02-05 Outpatient YIN, [facility] [id number] [place] 10:03:51 [facility] 2021-01-29 Outpatient [facility] [id number] [place] 11:10:23 [facility] 2021-01-09 Outpatient ZAHRAA, [facility] [id number] [place] 11:06:25 [facility] 2021-01-09 Outpatient RYAN, [facility] [id number] [place] 10:07:14 [facility] 2020-12-24 Outpatient CHIADIKA, [facility] [id number] [place] 11:41:40 [facility] 2020-12-24 Outpatient [facility] [id number] [place] 10:25:05 [facility] 2020-12-06 Outpatient ZAHRAA, [facility] [id number] [place] 04:27:14 [facility] 2022-11-11 2022-11-11 Outpatient ONUEGBU, [facility] [id number] [place] 10:00:00 10:00:00 [facility] 2022-09-01 2022-09-01 Outpatient VORA, [facility] [id number] [place] 09:00:00 [facility] 2022-08-13 Outpatient ONUEGBU, [facility] [id number] [place] 09:30:00 10:31:48 [facility] 2022-07-30 2022-07-30 Nurse Brooke Claudio 1.2.840.114 [id number] [place] 00:00:00 00:00:00 Triage Brooke Claudio 350.1.13.58 [facility] 9.2.7.2.686 [place] [id number] 0 2022-07-16 2022-07-16 Outpatient BLANE [facility] [id number] [place] 13:30:00 13:30:00 [facility] 2022-07-16 2022-07-16 Outpatient GEVOANNI LANGLEY [facility] [id number] [place] 09:15:00 10:22:33 [facility] 2022-07-09 2022-07-09 Outpatient MICHELLE, [facility] [id number] [place] 14:00:00 14:00:00 [facility] 2022-05-14 2022-05-14 Outpatient [facility] [id number] [place] 15:00:00 15:00:00 [facility] 2022-05-06 2022-05-06 [facility] [id number] Memoria 01:31:26 07:07:00 [place] 01 [facility] 2022-05-06 2022-05-06 Emergency [facility] [id number] Memoria 01:31:26 07:07:00 r [place] 01 [facility] 2022-05-06 2022-05-06 Emergency de Parkinson, 1.2.840.1 [id number] Methodi 00:11:00 03:55:[address] Pito 3.430.2.7 Hospit a .3.625039 l .8 2022-05-06 2022-05-06 Emergency de Parkinson, 1.2.840.1 [id number] Methodi 00:11:00 03:55:[address] Pito 3.430.2.7 Hospit a .3.400460 l .8 2022-05-05 2022-05-06 Outpatient Cano, [facility] MH[facility] [id number] 20:31:26 02:07:00 Reeva Alfonso 2022-05-05 2022-05-06 Emergency E CANO, MHBL MHBL [id number] MHBL 20:31:00 02:07:00 REEVA 2022-05-06 2022-05-06 Travel 1.2.840.1 1.2.597.446 [id number] Methodi 00:00:00 00:00:[address] 3.430.2.7 0.2.7.3.698 Ho spita .3.130238 084.8 l .8 2022-05-06 2022-05-06 Travel 1.2.840.1 1.2.211.213 9904 [id number] Methodi 00:00:00 00:00:[address] 3.430.2.7 0.2.7.3.698 Ho spita .3.452433 084.8 l .8 2022-04-19 2022-04-19 Emergency [facility] [id number] Memoria 11:55:40 18:05:00 r St[place] 00 l [facility] 2022-04-19 2022-04-19 Emergency [facility] [id number] Memoria 11:55:40 18:05:00 r [place] 00 l [facility] 2022-04-19 2022-04-19 Outpatient Irina Parks [facility]PL MHPL [id number] 06:55:40 13:05:00 Gisele 00 2022-04-19 2022-04-19 Emergency E IRINA PARKS MHBL MHBL [id number] MHBL 06:55:00 13:05:00 2022-04-06 2022-04-06 Office LUIS Martinez 1.2.840.114 [id number] [place] 14:00:00 16:30:20 Visit Pao HAY 350.1.13.58 [facility] 9.2.7.2.686 [place] [id number] 5 2022-04-06 2022-04-06 Outpatient [facility] [id number] [place] 15:00:00 15:00:00 Health 2022-03-17 2022-03-17 Telephone Brooke Claudio 1.2.840.1 14 [id number] [place] 00:00:00 00:00:00 Brooke Claudio 350.1.13.58 [facility] MEDICAL 9.2.7.2.686 [place] [id number] 0 2022-03-15 2022-03-15 Telephone Gavin Pena 1.2.840. 114 [id number] [place] 00:00:00 00:00:00 Gavin Pena 350.1.13.58 [facility] MEDICAL 9.2.7.2.686 [place] [id number] 0 2022-03-12 2022-03-12 Office LUIS Davis 1.2.599.751 [id number] [place] 13:30:00 14:33:34 Visit Tal HAY 350.1.13.58 [facility] MEDICAL 9.2.7.2.686 [place] [id number] 6 2022-01-11 2022-01-17 [facility] [id number] Memoria 07:27:50 17:39:00 r Stiven [address] [place] [address] 2022-01-11 2022-01-17 [facility] [id number] Memoria 07:27:50 17:39:00 r Stiven [address] [place] [address] 2022-01-11 2022-01-17 Inpatient E CANO, MHBL MED [id number] MHBL 04:11:00 12:39:00 [facility] 2022-01-11 2022-01-17 Outpatient Cano, [facility]PL MHPL [id number] 02:27:50 12:39:00 [place] [address] 2022-01-11 2022-01-17 Outpatient Cano, [facility]PL MHPL [id number] 02:27:50 12:39:00 [place] [address] 2022-01-10 2022-01-10 [facility] [id number] Memoria 12:53:37 16:50:00 r Stiven [address] [place] [address] 2022-01-10 2022-01-10 [facility] [id number] Memoria 12:53:37 16:50:00 lauren Saleem [address] [place] [address] 2022-01-10 2022-01-10 Outpatient Dee MHPL MHPL [id number] 07:53:37 11:50:00 Cammie Minaya 2022-01-10 2022-01-10 Emergency E [facility], [facility] 7504 [facility] 07:53:00 11:50:00 ABDIWAHAB 2021-11-10 2021-11-10 Patient Holli Valera 1.2.840.11 4 [id number] [place] 00:00:00 00:00:00 Outreach Holli Valera 350.1.13.58 Health MEDICAL 9.2.7.2.686 CENTER [id number] 6 2021-11-03 2021-11-03 Telephone Marianne Guerra JELM 1.2.84 0.114 [id number] [place] 00:00:00 00:00:00 Marianne Guerra 350.1.13.58 [facility] MEDICAL 9.2.7.2.686 [place] [id number] 2021-11-02 2021-11-02 Patient Jt, 1.2.840.1 [id number] Methodi 00:00:00 00:00:00 Outreach Olbravounlasha 51535.1.[address] 3.430.2.7 Hospit a .3.780781 l .8 2021-11-02 2021-11-02 Patient Jt, 1.2.840.1 [id number] 6281 Methodi 00:00:00 00:00:00 Outreach Olbravounlasha 71309.1.[address] 3.430.2.7 Hospit a .3.945029 l .8 2021-10-26 2021-10-31 Hospital NancyManuel menon 1.2.840.1 [id number] Methodi 11:26:00 17:01:00 Encounter Keny Menon Clive 19605.1.[address] [place] Perrin 3.430.2.7 Hospita .3.475069 l .8 2021-10-26 2021-10-31 [facility] 1.2.840.1 104 [id number] Methodi 11:26:00 17:01:00 Encounter Keny Menonston 59483.1.[address] [place] 3.430.2.7 Hospita .3.286157 l .8 2021-10-26 2021-10-26 Travel 1.2.840.1 1.2.606.189 2994 022443 Methodi 00:00:00 00:00:[address] 3.430.2.7 0.2.7.3.698 Ho spita .3.421963 084.8 l .8 2021-10-26 2021-10-26 Travel 1.2.840.1 1.2.992.659 8756 769335 Methodi 00:00:00 00:00:[address] 3.430.2.7 0.2.7.3.698 Ho spita .3.626125 084.8 l .8 2021-10-26 2021-10-26 Telephone Alice Lincoln [facility] 6410 1.2.8 40.114 [id number] [place] 00:00:00 00:00:[address] 350.1.13.5 8 Health 9.2.7.2.686 [id number] 8 2021-09-30 2021-09-30 Travel 1.2.840.1 1.2.470.223 8402 120210 Methodi 00:00:00 00:00:[address] 3.430.2.7 0.2.7.3.698 Ho spita .3.755317 084.8 l .8 2021-09-30 2021-09-30 Travel 1.2.840.1 1.2.683.420 3412 414606 Methodi 00:00:00 00:00:[address] 3.430.2.7 0.2.7.3.698 Ho spita .3.110537 084.8 l .8 2021-09-24 2021-09-24 Office Mehdi LUIS 6410 1.2.840.114 [id number] [id number] [place] 14:30:00 14:51:49 Visit Maki ELAINE 350.1.13.58 [facility] 9.2.7.2.686 [id number] 2021-08-31 2021-09-09 [facility] Kwabena Mariano 1.2.840.1 1045 62369 [id number] Methodi 08:10:00 15:31:00 Encounter Vanessa Multani 78793.1.[address] 3.430.2.7 Hospit a .3.395388 l .8 2021-08-31 2021-09-09 Hospital Kwabena Mariano 1.2.840.1 1045 [id number] Methodi 08:10:00 15:31:00 Encounter Vanessa Multani 34794.1.[address] 3.430.2.7 Hospit a .3.942882 l .8 2021-08-31 2021-08-31 Travel 1.2.840.1 1.2.389.040 3750 196336 Methodi 00:00:00 00:00:[address] 3.430.2.7 0.2.7.3.698 Ho spita .3.662656 084.8 l .8 2021-08-31 2021-08-31 Travel 1.2.840.1 1.2.863.727 1866 811987 Methodi 00:00:00 00:00:[address] 3.430.2.7 0.2.7.3.698 Ho spita .3.144310 084.8 l .8 2021-08-18 2021-08-18 Telephone Geovanni Langley 1.2.840.114 [id number] [place] 00:00:00 00:00:00 PLAZA 350.1.13.58 [facility] 9.2.7.2.686 [place] [id number] 5 2021-08-17 2021-08-17 Telephone Pushpa Samano 1.2.840. 114 [id number] [place] 00:00:00 00:00:00 Pushpa Samano 350.1.13.58 Health MEDICAL 9.2.7.2.686 [place] [id number] 0 2021-08-14 2021-08-14 Office LUIS Vital 1.2.840.114 [id number] [place] 09:00:00 10:42:44 Visit Cisco HAY 350.1.13.58 [facility] MEDICAL 9.2.7.2.686 [place] [id number] 6 2021-08-14 2021-08-14 Patient ShockencyFabi 1.2.84 0.114 [id number] [place] 00:00:00 00:00:00 Outreach ShockencyFabi 350.1.13.5 8 Health MEDICAL 9.2.7.2.686 [place] [id number] 6 2021-07-21 2021-07-21 Telephone Yessica Wen 1.2.840.1 14 [id number] [place] 00:00:00 00:00:00 Yessica Wen 350.1.13.58 Health MEDICAL 9.2.7.2.686 [place] [id number] 0 2021-07-09 2021-07-09 Telephone Manjula Cade 1.2.840.1 14 [id number] [place] 00:00:00 00:00:00 Manjula Cade 350.1.13.58 Health MEDICAL 9.2.7.2.686 [place] [id number] 0 2021-05-28 2021-05-28 Telephone Mehdi 1.2.840.1 [id number] 2100 [id number] Methodi 00:00:00 00:00:00 Barbara Rondon 60899.1.[address] 3.430.2.7 Hospit a .3.751105 l .8 2021-05-21 2021-05-21 Office Mehdi 1.2.840.1 [id number] 8372 Methodi 16:00:00 16:41:43 Visit Barbara Rondon 79419.1.[address] 3.430.2.7 Hospit a .3.653123 l .8 2021-05-21 2021-05-21 Travel 1.2.840.1 1.2.005.180 2471 [id number] Methodi 00:00:00 00:00:[address] 3.430.2.7 0.2.7.3.698 Ho spita .3.381099 084.8 l .8 2021-05-09 2021-05-09 Emergency Gary Bee 1.2.840.1 [id number] Methodi 15:12:00 19:13:[address] 3.430.2.7 Hospit a .3.222676 l .8 2021-05-09 2021-05-09 Travel 1.2.840.1 1.2.618.089 5637 908363 Methodi 00:00:00 00:00:[address] 3.430.2.7 0.2.7.3.698 Ho spita .3.502895 084.8 l .8 2021-05-07 2021-05-07 Telephone Marianne Guerra [facility] 1.2.84 0.114 [id number] [place] 00:00:00 00:00:00 Marianne Guerra 350.1.13.58 [facility] 9.2.7.2.686 [place] [id number] 0 2021-05-06 2021-05-06 Travel 1.2.840.1 1.2.284.601 6464 [id number] Methodi 00:00:00 00:00:[address] 3.430.2.7 0.2.7.3.698 Ho spita .3.309696 084.8 l .8 2021-03-19 2021-03-19 Refill LUIS Martinez JELM 1.2.840.114 [id number] [place] 00:00:00 00:00:00 Pao PLAZA 350.1.13.58 [facility] MEDICAL 9.2.7.2.686 [place] [id number] 5 2021-03-19 2021-03-19 LUIS Vieyra JELM 12.840.114 [id number] 00:00:00 00:00:00 Pao PLAZA 350.1.13.58 MEDICAL 9.2.7.2.686 [place] [id number] 5 2021-03-18 2021-03-18 Emergency [facility] [id number] [facility] 04:02:56 10:53:00 r [place] 03 [facility] 2021-03-18 2021-03-18 Emergency [facility] [id number] [facility] 04:02:56 10:53:00 r [place] 03 [facility] 2021-03-17 2021-03-18 Outpatient Vishnyatamikaa MHPL MHPL [id number] 23:02:56 05:53:00 , Fatemeh 03 2021-03-17 2021-03-18 Emergency E SHAHEENYACLAIRE MHBL MHBL [id number] MHBL 23:02:00 05:53:00 , FATEMEH 2021-03-18 2021-03-18 Telephone Kim Lucila SMITH JELM 12.840.11 4 [id number] [place] 00:00:00 00:00:00 Lucila Alvarez 350.1.13.58 [facility] MEDICAL 9.2.7.2.686 [place] [id number] 0 2021-03-18 2021-03-18 Telephone Kim LUIS JELM 12.840.114 12 [id number] 00:00:00 00:00:00 Lucila PLAZA 350.1.13.58 MEDICAL 9.2.7.2.686 [place] [id number] 0 2021-03-06 2021-03-06 Telephone Elsa Collier JELM 12.840.1 14 [id number] [place] 00:00:00 00:00:00 Elsa Collier 350.1.13.58 Health MEDICAL 9.2.7.2.686 [place] [id number] 0 2021-03-06 2021-03-06 Telephone Amira LUIS JELM 1.2.840.114 125 [id number] 00:00:00 00:00:00 Elsajuan HAY 350.1.13.58 MEDICAL 9.2.7.2.686 [place] [id number] 0 2021-02-24 2021-02-24 Office Mehdi 1.2.840.1 [id number] Methodi 11:49:26 12:13:24 Visit Barbara Rondon 17000.1.[address] 3.430.2.7 Hospit a .3.406988 l .8 2021-02-24 2021-02-24 Outpatient MEHDI ACUNA[address] 00:00:00 00:00:00 BARBARA Mosquera4 Method i [facility] 2021-02-24 2021-02-24 Outpatient MEHDI ACUNA [place] [id number] [place] [address] 00:00:00 00:00:00 BARBARA Mosquera[address] [facility] i [address] 2021-02-23 2021-02-23 Travel 1.2.840.1 1.2.689.015 [id number] [facility] 00:00:00 00:00:[address] 3.430.2.7 0.2.7.3.698 Ho spita .3.406721 084.8 l .8 2021-02-19 2021-02-19 Telephone Adri Melendez 1.2.84 0.114 [id number] [place] 00:00:00 00:00:00 Adri Melendez 350.1.13.58 Health MEDICAL 9.2.7.2.686 [place] [phone] 6 2021-02-19 2021-02-19 Patient UbaldoDaniela colonbritta ANDERSON 1.2.84 0.114 [id number] [place] 00:00:00 00:00:00 Outreach Rajat Ash 350.1.13.5 8 Health MEDICAL 9.2.7.2.686 [place] [id number] 6 2021-02-04 2021-02-04 Refill Adri Melendez JELM 1.2.840. 114 [id number] [place] 00:00:00 00:00:00 Adri Melendez 350.1.13.58 Health MEDICAL 9.2.7.2.686 [place] [phone] 6 2021-01-28 2021-01-28 Orders Adri Melendez JELM 1.2.840. 114 [id number] [place] 00:00:00 00:00:00 Only Adri Melendez 350.1.13.58 Health MEDICAL 9.2.7.2.686 [place] [phone] 6 2021-01-27 2021-01-27 Telephone Marianne Keller LUIS JELM 1.2 .840.114 [id number] [place] 00:00:00 00:00:00 Marianne Keller 350.1.13.5 8 Health MEDICAL 9.2.7.2.686 [place] [phone] 0 2021-01-24 2021-01-24 Emergency [facility] 90293 00518 [facility] 15:32:55 19:15:00 r Stiven [address] [place] [address] 2021-01-24 2021-01-24 Emergency [facility] 50970 33215 [facility] 15:32:55 19:15:00 r [address] [address] [place] [address] 2021-01-24 2021-01-[address] [id number] 10:32:55 14:15:00 Abdiwahab 02 [facility] 2021-01-24 2021-01-24 [place] [address] [place] 10:32:00 14:15:00 ABDIWAHAB 2021-01-22 2021-01-22 Patient Rajat Ash LUIS JELM 1.2.84 0.114 [id number] [place] 00:00:00 00:00:00 Outreach Rajat Ash 350.1.13.5 8 Health MEDICAL 9.2.7.2.686 [place] [phone] 6 2021-01-09 2021-01-09 Office LUIS Vital 1.2.840.114 [id number] [place] 09:29:58 11:05:07 Visit Cisco HAY 350.1.13.58 [facility] 9.2.7.2.686 [place] [id number] 6 2021-01-08 2021-01-08 Patient Fabi Sanon 1.2.84 0.114 [id number] [place] 00:00:00 00:00:00 Outreach ShockFabi alvarado 350.1.13.5 8 [facility] MEDICAL 9.2.7.2.686 [place] [phone] 6 2021-01-08 2021-01-08 Patient DeclouRajat carreno PARK 1.2.84 0.114 [id number] [place] 00:00:00 00:00:00 Outreach Rajat Ash 350.1.13.5 8 [facility] MEDICAL 9.2.7.2.686 [place] [id number] 6 2021-01-06 2021-01-06 Telephone Yajaira Du JELM 1.2.840 .114 [id number] [place] 00:00:00 00:00:00 Du, Yajaira LAINAMAO 350.1.13.58 [facility] [facility] MEDICAL 9.2.7.2.686 [place] [id number] 0 2021-01-01 2021-01-01 Travel 1.2.840.1 1.2.146.021 [id number] Methodi 00:00:00 00:00:[address] 3.430.2.7 0.2.7.3.698 spita .3.701686 084.8 l .8 2020-12-31 2020-12-31 Telephone Mehdi, 1.2.840.1 [id number] Methodi 00:00:00 00:00:00 Barbara Rondon 18684.1.[address] 3.430.2.7 Hospit a .3.913434 l .8 2020-12-22 2020-12-22 Office LUIS Jones 1.2.840.114 [id number] [place] 15:54:20 17:11:33 Visit Karlo HAY 350.1.13.58 He alth MEDICAL 9.2.7.2.686 CENTER [id number] 1 2020-12-22 2020-12-22 Orders Adri Melendez [facility] 1.2.840. 114 [id number] [place] 00:00:00 00:00:00 Only Adri Melendez 350.1.13.58 Health MEDICAL 9.2.7.2.686 CENTER [id number] 6 2020-12-19 2020-12-19 Telephone Eryn Qiu [facility] 1.2.840.11 4 [id number] [place] 00:00:00 00:00:00 Eryn Qiu 350.1.13.58 Health MEDICAL 9.2.7.2.686 CENTER [id number] 0 2020-12-19 2020-12-19 Refill MichelleLUIS JELM 1.2.840.114 [id number] [place] 00:00:00 00:00:00 Pao SATNAM 350.1.13.58 He alth MEDICAL 9.2.7.2.686 CENTER [id number] 5 2020-12-19 2020-12-19 Patient Rajat Ash [facility] 1.2.84 0.114 [id number] [place] 00:00:00 00:00:00 Outreach Rajat Ash 350.1.13.5 8 Health MEDICAL 9.2.7.2.686 CENTER [id number] 1 2020-12-17 2020-12-17 Telephone Latosha Brooks JELM 1.2. 840.114 [id number] [place] 00:00:00 00:00:00 Latosha Brooks 350.1.13.58 Health MEDICAL 9.2.7.2.686 CENTER [id number] 2020-10-24 2020-10-24 AppointLUIS Wan Internal [id number] [place] 10:00:00 10:00:00 tCISCO BUCKLEY, Jeancarlos - Brianna BOWERS M.D. [facility] 2020-10-23 2020-10-23 Emergency [facility] [id number] Memoria 18:10:02 20:58:00 r [place] l [facility] 2020-10-23 2020-10-23 Emergency [facility] [id number] Memoria 18:10:02 20:58:00 lauren Saleem [facility] 2020-10-23 2020-10-[address] [id number] 13:10:02 15:58:00 Ranino 01 [facility] 2020-10-23 2020-10-23 Emergency E CHRITSINA BL MHBL 7501 MHBL 13:10:00 15:58:00 RAUVAN 2020-09-22 2020-09-22 Telemedici Mehdi, 1.2.840.1 [id number] Methodi 13:01:16 13:14:07 ne Barbara Rondon 40532.1.[address] 3.430.2.7 Hospit a .3.831398 l .8 2020-09-18 2020-09-18 Travel 1.2.840.1 1.2.864.168 [id number] Methodi 00:00:00 00:00:[address] 3.430.2.7 0.2.7.3.698 Ho spita .3.771336 084.8 l .8 2020-09-11 2020-09-14 Emergency Shlomo Bustillos 1.2.840.1 [id number] Methodi 13:09:00 15:20:00 Pérez Thompson 03211.1.[address] 3.430.2.7 Hospit a .3.379296 l .8 2020-09-11 2020-09-11 Telephone Mehdi, 1.2.840.1 [id number] Methodi 00:00:00 00:00:00 Barbara Rondon 27471.1.[address] 3.430.2.7 Hospit a .3.515900 l .8 2020-09-11 2020-09-11 Travel 1.2.840.1 1.2.686.519 0964 [id number] Methodi 00:00:00 00:00:[address] 3.430.2.7 0.2.7.3.698 Ho spita .3.669652 084.8 l .8 2020-09-01 2020-09-01 Merged With [facility], 1.2.840.1 [id number] Methodi 15:14:13 23:59:00 Encounter Barbara Rondon 15180.1.[address] 3.430.2.7 Hospit a .3.257572 l .8 2020-09-01 2020-09-01 Merged With [facility], 1.2.840.1 [id number] Methodi 14:43:05 15:13:00 Encounter Barbara Rondon 83939.1.[address] 3.430.2.7 Hospit a .3.758102 l .8 2020-09-01 2020-09-01 Travel 1.2.840.1 1.2.668.959 0865 [id number] Methodi 00:00:00 00:00:[address] 3.430.2.7 0.2.7.3.698 Ho spita .3.276417 084.8 l .8 2020-08-22 2020-08-22 Emergency [facility] [id number] 614 [place] 00:00:00 00:00:00 FAHEEM 277 Method i 2020-08-21 2020-08-21 Outpatient MEHDI ACUNA, [facility] [id number] [place] 00:00:00 00:00:00 BARBARA 299 Method i 2020-08-08 2020-08-08 AppointLUIS Wan [id number] [place] 10:40:00 10:40:00 t; CISCO [facility]ITAL Phy sici BINSAH, M.D. ans M.D. 2020-07-14 2020-07-21 Inpatient [facility] 025 [id number] [place] 00:00:00 00:00:00 VANESSA 101 Method i 2020-07-11 2020-07-11 AppointLUIS Wan Internal [id number] [place] 08:20:00 08:20:00 t; [facility]CO [facility] Medicine - Physici BINSAH, M.D. [place] [facility] [place] 2020-04-25 2020-04-25 Appointmen LUIS VITAL Comprehensi [id number] [place] 09:00:00 09:00:00 t; [facility] ve Sickle P hysici BINSAH, M.D. Cell [place] ans Tonio 2020-04-08 2020-04-16 Inpatient JAY, [facility] 064 [id number] [place] 00:00:00 00:00:00 PÉREZ [address] 2020-04-04 2020-04-04 Appointmen LUIS ALMENDAREZ [id number] [place] 11:00:00 11:00:00 t; CAIT ALMENDAREZ P hysici HARINDER, M.D. ans M.D. 2020-01-28 2020-01-28 Outpatient MEHDI ACUNA, [facility] [id number] [place] 00:00:00 00:00:00 BARBARA 584 Method i 2020-01-11 2020-01-11 Appointmen SMILEY CHAVEZ Multispecia [id number] [place] 10:00:00 10:00:00 t; itz CHAVEZ - The Phy [facility] [address] 2020-01-11 2020-01-11 Appointmen LUIS ALMENDAREZ Comprehensi [id number] [place] 09:40:00 09:40:00 t; CAIT ALMENDAREZ ve Sickle Physici HARINDER, M.D. Cell [place] daniela wilson M.D. 2020-01-11 2020-01-11 Appointmen LUIS ALMENDAREZ Comprehensi [id number] [place] 09:40:00 09:40:00 t; CAIT ALMENDAREZ ve Sickle Physici HARINDER, M.D. Cell [facility] daniela wilson M.D. 2019-12-07 2019-12-07 Appointmen LUIS ALMENDAREZ UTP [id number] [place] 10:20:00 10:20:00 t; CAIT ALMENDAREZ P hysici HARINDER, M.D. ans M.D. 2019-10-19 2019-10-19 Appointmen LUIS ALMENDAREZ Comprehensi [id number] [place] 10:20:00 10:20:00 t; CAIT ALMENDAREZ ve Sickle Physici HARINDER, M.D. Cell Center daniela wilson M.D. 2019-10-16 2019-10-16 Outpatient MEHDI ACUNA, [facility] [id number] [place] 00:00:00 00:00:00 BARBARA 873 Method i 2019-09-15 2019-09-20 Inpatient NERISSA, [facility] [id number] [place] 00:00:00 00:00:00 VANESSA 862 Method i 2019-08-24 2019-08-24 Appointmen LUIS ALMENDAREZ Comprehensi [id number] [place] 10:40:00 10:40:00 t; CAIT ALMENDAREZ ve Sickle Physici HARINDER, M.D. Cell Center daniela wilson M.D. 2019-08-16 2019-08-16 Appointmen LUIS SOMMERS UTP [id number] [place] 13:00:00 13:00:00 t; FRANCISCO JAVIER SOMMERS Phy sici ECHOII [facility] 2019-07-31 2019-07-31 Emergency nullFlavo [facility] [id number] Memoria 02:02:58 06:33:00 r [place] 00 l [facility] 2019-07-31 2019-07-31 Emergency nullFlavo [facility] [id number] Memoria 02:02:58 06:33:00 r [place] 00 l [facility] 2019-07-30 2019-07-31 Outpatient Fernando [facility] [id number] 20:02:58 00:33:00 Leora M 2019-06-16 2019-06-19 Inpatient JALIL, [facility] [id number] [place] 00:00:00 00:00:00 ERENDIRA 177 Method i 2019-06-15 2019-06-15 Appointmen LUIS ALMENDAREZ Comprehensi [id number] [place] 09:00:00 09:00:00 t; CAIT ALMENDAREZ ve Sickle Physici HARINDER, M.D. Cell Center daniela wilson M.D. 2019-02-19 2019-02-19 Office [facility] 1.2.840.114 [id number] 12:46:23 13:57:23 Visit Dale 350.1.13.10 IAITZ 4.2.7.2.686 [place] [id number] [facility] Results Test Description Test Time Test Comments Results Result Comments Source CARDIAC ENZYMES 2022-04-19 16:10:00 Test Item Value Reference Range Interpretation Comme nts HS Troponin I 1 Hr (test code = HS Troponin I 1 Hr) 5 [facility] HermannCARDIAC [id number] 16:10:00 Test Item Value Reference Range Interpretation Comments HS Troponin I 0 to 1 Hour Delta (test 0 1 code = HS Troponin I 0 to 1 Hour Delta) [facility] REGEN EnergyannCARDIAC [id number] 16:10:00 Test Item Value Reference Range Interpretation Comments HS Troponin I 1 Hr (test code = HS 5 Troponin I 1 Hr) [facility] REGEN [employer]CARD[employer]AC [id number] 16:10:00 Test Item Value Reference Range Interpretation Comments HS Troponin I 0 to 1 Hour Delta (test 0 1 code = HS Troponin I 0 to 1 Hour Delta) [facility] REGEN [employer]AC [id number] 16:10:00 Test Item Value Reference Range Interpretation Comments HS Troponin I 1 Hr (test code = HS 5 Troponin I 1 Hr) [facility] REGEN [employer]AC [id number] 16:10:00 Test Item Value Reference Range Interpretation Comments HS Troponin I 0 to 1 Hour Delta (test 0 1 code = HS Troponin I 0 to 1 Hour Delta) [facility] REGEN [employer]AC [id number] 15:00:00 Test Item Value Reference Range Interpretation Comments HS Troponin I Baseline (test code = HS 5 Troponin I Baseline) [facility] REGEN [employer] [id number] 15:00:00 Test Item Value Reference Range Interpretation Comments HS Troponin I Baseline (test code = HS 5 Troponin I Baseline) [facility] REGEN [employer] [id number] 15:00:00 Test Item Value Reference Range Interpretation Comments HS Troponin I Baseline (test code = HS 5 Troponin I Baseline) [facility] Myla [id number] 12:52:00 Test Item Value Reference Range Interpretation Comments Glucose Lvl (test code = Glucose Lvl) 98 70-99 [facility] Myla [id number] 12:52:00 Test Item Value Reference Range Interpretation Comments BUN (test code = BUN) 8 7-22 [facility] REGEN [employer] [id number] 12:52:00 Test Item Value Reference Range Interpretation Comments Creatinine Lvl (test code = Creatinine 0.55 0.50-1.40 Lvl) [facility]2022-09-19 12:52:00 Test Item Value Reference Range Interpretation Comments Sodium Lvl (test code = Sodium Lvl) 138 135-145 [place] 210522-09-19 12:52:00 Test Item Value Reference Range Interpretation Comments Potassium Lvl (test code = Potassium 3.9 3.5-5.1 Lvl) [facility]2022-09-19 12:52:00 Test Item Value Reference Range Interpretation Comments Chloride Lvl (test code = Chloride Lvl) 107 95-109 [place] 210522-09-19 12:52:00 Test Item Value Reference Range Interpretation Comments CO2 (test code = CO2) [facility]2022-09-19 12:52:00 Test Item Value Reference Range Interpretation Comments Calcium Lvl (test code = Calcium Lvl) 8.8 8.5-10.5 [facility]2022-09-19 12:52:00 Test Item Value Reference Range Interpretation Comments Glucose Lvl (test code = Glucose Lvl) 98 70-99 [facility]2022-09-19 12:52:00 Test Item Value Reference Range Interpretation Comments BUN (test code = BUN) 8 7-22 [facility]2022-09-19 12:52:00 Test Item Value Reference Range Interpretation Comments Creatinine Lvl (test code = Creatinine 0.55 0.50-1.40 Lvl) [facility]2022-09-19 12:52:00 Test Item Value Reference Range Interpretation Comments Sodium Lvl (test code = Sodium Lvl) 138 135-145 [facility]2022-09-19 12:52:00 Test Item Value Reference Range Interpretation Comments Potassium Lvl (test code = Potassium 3.9 3.5-5.1 Lvl) [facility]2022-09-19 12:52:00 Test Item Value Reference Range Interpretation Comments Chloride Lvl (test code = Chloride Lvl) 107 95-109 [place] 210522-09-19 12:52:00 Test Item Value Reference Range Interpretation Comments CO2 (test code = CO2) [place] 210522-09-19 12:52:00 Test Item Value Reference Range Interpretation Comments Calcium Lvl (test code = Calcium Lvl) 8.8 8.5-10.5 [facility]2022-09-19 12:52:00 Test Item Value Reference Range Interpretation Comments Total Protein (test code = Total 8.2 6.4-8.4 Protein) [place] 210522-09-19 12:52:00 Test Item Value Reference Range Interpretation Comments Albumin Lvl (test code = Albumin Lvl) 4.6 3.5-5.0 [place] 210522-09-19 12:52:00 Test Item Value Reference Range Interpretation Comments ALT (test code = ALT) 23 See_Comment [Auto mated message] The system which ge nerated this result transmit aisha reference range : <=65. The reference range was not used to interpr et this result as erin l/abnormal. [facility]2022-09-19 12:52:00 Test Item Value Reference Range Interpretation Comments AST (test code = AST) 36 See_Comment [Auto mated message] The system which ge nerated this result transmit aisha reference range : <=37. The reference range was not used to interpr et this result as erin l/abnormal. [facility] [id number] 12:52:00 Test Item Value Reference Range Interpretation Comments Alk Phos (test code = Alk Phos) 104 39-136 [facility] [id number] 12:52:00 Test Item Value Reference Range Interpretation Comments Bili Total (test code = Bili Total) 4.3 0.2-1.3 [facility] [id number] 12:52:00 Test Item Value Reference Range Interpretation Comments AGAP (test code = AGAP) 8.9 10.0-20.0 [facility] [id number] 12:52:00 Test Item Value Reference Range Interpretation Comments B/C Ratio (test code = B/C Ratio) 15 1 6-25 [facility] [id number] 12:52:00 Test Item Value Reference Range Interpretation Comments Globulin (test code = Globulin) 3.6 2.7-4.2 [facility] [id number] 12:52:00 Test Item Value Reference Range Interpretation Comments A/G Ratio (test code = A/G Ratio) 1.3 1 0.7-1.6 [facility]2022-09-19 12:52:00 Test Item Value Reference Range Interpretation Comments Total Protein (test code = Total 8.2 6.4-8.4 Protein) [facility]2022-09-19 12:52:00 Test Item Value Reference Range Interpretation Comments eGFR (test code = eGFR) 144 [facility] WorthShfasmgZLUGLNNBIH3419-59-21 12:52:00 Test Item Value Reference Range Interpretation Comments RBC (test code = RBC) 2.66 4.70-6.10 [facility] WorthKokiedwCDMQXJSMXD7779-57-73 12:52:00 Test Item Value Reference Range Interpretation Comments Hgb (test code = Hgb) 8.8 14.0-18.0 [facility] WorthDfilhhcXGXCOKIMBN0591-81-16 12:52:00 Test Item Value Reference Range Interpretation Comments Hct (test code = Hct) 24.4 42.0-54.0 [facility] WorthTpvyrlpNAYTWBBKKQ9090-72-81 12:52:00 Test Item Value Reference Range Interpretation Comments MCV (test code = MCV) 91.6 80.0-94.0 [facility] WorthWrvhnpnVXJNJVLUKY3557-24-22 12:52:00 Test Item Value Reference Range Interpretation Comments MCH (test code = MCH) 33.0 pg 27.0-31.0 [facility] WorthPolablyHZBEAOFQSD8907-14-25 12:52:00 Test Item Value Reference Range Interpretation Comments MCHC (test code = MCHC) 36.0 32.0-36.0 [facility] WorthCimuhsrVXCVOJBVGD8972-94-71 12:52:00 Test Item Value Reference Range Interpretation Comments RDW (test code = RDW) 24.7 11.5-14.5 [facility] WorthQukxevgZVRRTDPKHR4505-31-82 12:52:00 Test Item Value Reference Range Interpretation Comments Platelet (test code = Platelet) 381 133-450 [facility] WorthOwaiixrNIJUMYSOMW0218-37-40 12:52:00 Test Item Value Reference Range Interpretation Comments MPV (test code = MPV) 6.5 7.4-10.4 [facility] WorthUobvrbyVCSEAMPTRH7509-99-41 12:52:00 Test Item Value Reference Range Interpretation Comments WBC (test code = WBC) 7.9 3.7-10.4 [place] 831202-09-19 12:52:00 Test Item Value Reference Range Interpretation Comments Retic Perf (test code = Yes (04/19/22 7:52 AM) Retic Perf) [facility] WorthNcupgwtKFYKQAYJXQ1215-39-05 12:52:00 Test Item Value Reference Range Interpretation Comments Retic Auto (test code = Retic Auto) 11.8 0.5-1.5 [facility] WorthYkqmjlrRPVGKSCNUU9977-48-80 12:52:00 Test Item Value Reference Range Interpretation Comments RBC Morph (test code = See Note (04/19/22 7:52 RBC Morph) AM) [facility] WorthKptynooQKIIORBIXM5392-51-27 12:52:00 Test Item Value Reference Range Interpretation Comments Plt Morph (test code = Normal (04/19/22 7:52 Plt Morph) AM) [facility] WorthEedbeddABLDKCAASQ6429-53-36 12:52:00 Test Item Value Reference Range Interpretation Comments Segs (test code = Segs) 53.0 45.0-75.0 [facility] WorthWlgvrwhGYVQUMNPXW7370-68-75 12:52:00 Test Item Value Reference Range Interpretation Comments Bands (test code = 4.0 See_Comment [Automat ed message] The Bands) system which ge nerated this result transmit aisha reference range : <=11.0. The reference r duy was not used to interpr et this result as erin l/abnormal. [facility] WorthHaokkxoYQUCIITGIO0296-16-70 12:52:00 Test Item Value Reference Range Interpretation Comments Lymphocytes (test code = Lymphocytes) 29.0 20.0-40.0 [facility] [id number] 12:52:00 Test Item Value Reference Range Interpretation Comments Monocytes (test code = Monocytes) 7.0 2.0-12.0 [place] 831202-09-19 12:52:00 Test Item Value Reference Range Interpretation Comments Eosinophils (test code = 2.0 See_Comment [A utomated message] The Eosinophils) system which ge nerated this result tra nsmitted reference range : <=4.0. The reference r duy was not used to int erpret this result as normal/abnormal . [facility] WorthChtqdhjIVAODVZFTI5821-62-09 12:52:00 Test Item Value Reference Range Interpretation Comments Basophils (test code = 1.0 See_Comment [Aut omated message] The Basophils) system which ge nerated this result tra nsmitted reference range : <=1.0. The reference r duy was not used to int erpret this result as normal/abnormal . [facility] WorthTvnzhrqUGIGAMKAQB7477-05-58 12:52:00 Test Item Value Reference Range Interpretation Comments Neutrophils # (test code = Neutrophils 4.5 1.5-8.1 #) [facility] WorthZdahmsdQKSHIFDTGG8209-86-44 12:52:00 Test Item Value Reference Range Interpretation Comments Lymphocytes # (test code = Lymphocytes 2.3 1.0-5.5 #) [facility] WorthKhcorbwWZTNYBRRLU7989-99-23 12:52:00 Test Item Value Reference Range Interpretation Comments Monocytes # (test code 0.6 See_Comment [Aut omated message] The = Monocytes #) system which generated this result tra nsmitted reference range : <=0.8. The reference r duy was not used to int erpret this result as normal/abnormal . [facility] WorthDhrhzefTREIYNHPID5463-89-98 12:52:00 Test Item Value Reference Range Interpretation Comments Eosinophils # (test code 0.2 See_Comment [A utomated message] The = Eosinophils #) system whic h generated this result tra nsmitted reference range : <=0.5. The reference r duy was not used to int erpret this result as normal/abnormal . [facility] WorthOpqgmwmTIQETNPSHW7844-24-99 12:52:00 Test Item Value Reference Range Interpretation Comments Basophils # (test code 0.1 See_Comment [Aut omated message] The = Basophils #) system which generated this result tra nsmitted reference range : <=0.2. The reference r duy was not used to int erpret this result as normal/abnormal . [facility] WorthRqawrbbOEYJCCERCK0524-02-42 12:52:00 Test Item Value Reference Range Interpretation Comments Metamyelocytes (test code 3.0 See_Comment [ Automated message] = Metamyelocytes) The system which generated this result transmitted ref erence range: <=1.0. T he reference range was not used to int erpret this result as normal/abnormal . [facility] WorthRhfupdiWMMTBKXLZD8017-05-08 12:52:00 Test Item Value Reference Range Interpretation Comments Myelocytes (test code = Myelocytes) 1.0 [place] 831202-09-19 12:52:00 Test Item Value Reference Range Interpretation Comments NRBC (test code = NRBC) 3 [facility] WorthEutbpwwPREQANJSXN1031-45-80 12:52:00 Test Item Value Reference Range Interpretation Comments Anisocyte (test code = 2+ *ABN*(04/19/22 Anisocyte) 7:52 AM) [facility]2022-09-19 12:52:00 Test Item Value Reference Range Interpretation Comments Albumin Lvl (test code = Albumin Lvl) 4.6 3.5-5.0 [facility] WorthNqfkfkdBECLAHJOSP8715-56-84 12:52:00 Test Item Value Reference Range Interpretation Comments Microcyte (test code = 1+ *ABN*(04/19/22 Microcyte) 7:52 AM) [facility] WorthHcnplbxUGMSHELAKX1002-43-35 12:52:00 Test Item Value Reference Range Interpretation Comments Hypochrom (test code = 1+ (04/19/22 7:52 AM) Hypochrom) [facility] WorthIslvhwzXGLLDVUWNK7519-71-19 12:52:00 Test Item Value Reference Range Interpretation Comments Polychrom (test code = Moderate *ABN*(04/19/22 Polychrom) 7:52 AM) [facility] WorthNftebzaFQZVUHQACZ9947-67-05 12:52:00 Test Item Value Reference Range Interpretation Comments Target Cell (test code Marked *ABN*(04/19/22 = Target Cell) 7:52 AM) [facility] WorthUxntezlTTLVEUBBXJ3924-49-56 12:52:00 Test Item Value Reference Range Interpretation Comments Tear Cell (test code Moderate *ABN*(04/19/22 = Tear Cell) 7:52 AM) [facility] WorthShljisfZMVPUKBIQR8999-71-43 12:52:00 Test Item Value Reference Range Interpretation Comments Schistocyte (test code = 1-3 per HPF Schistocyte) (04/19/22 7:52 AM) [facility] WorthZuwsbcyJXDXZWXXQY6528-16-67 12:52:00 Test Item Value Reference Range Interpretation Comments Elliptocyte (test code = Slight *ABN*(04/19/22 Elliptocyte) 7:52 AM) [facility] WorthJnmdcsnGZMLENPCEK3061-70-07 12:52:00 Test Item Value Reference Range Interpretation Comments Sickle Cell (test code Slight *ABN*(04/19/22 = Sickle Cell) 7:52 AM) [place] 210522-09-19 12:52:00 Test Item Value Reference Range Interpretation Comments ALT (test code = ALT) 23 See_Comment [Auto mated message] The system which ge nerated this result transmit aisha reference range : <=65. The reference range was not used to interpr et this result as erin l/abnormal. [facility] [id number] 12:52:00 Test Item Value Reference Range Interpretation Comments AST (test code = AST) 36 See_Comment [Auto mated message] The system which ge nerated this result transmit aisha reference range : <=37. The reference range was not used to interpr et this result as erin l/abnormal. [facility] [id number] 12:52:00 Test Item Value Reference Range Interpretation Comments Alk Phos (test code = Alk Phos) 104 39-136 [facility] [id number] 12:52:00 Test Item Value Reference Range Interpretation Comments Bili Total (test code = Bili Total) 4.3 0.2-1.3 [facility] [id number] 12:52:00 Test Item Value Reference Range Interpretation Comments AGAP (test code = AGAP) 8.9 10.0-20.0 [facility] [id number] 12:52:00 Test Item Value Reference Range Interpretation Comments B/C Ratio (test code = B/C Ratio) 15 1 6-25 [facility] [id number] 12:52:00 Test Item Value Reference Range Interpretation Comments Globulin (test code = Globulin) 3.6 2.7-4.2 [facility] [id number] 12:52:00 Test Item Value Reference Range Interpretation Comments A/G Ratio (test code = A/G Ratio) 1.3 1 0.7-1.6 [facility] [id number] 12:52:00 Test Item Value Reference Range Interpretation Comments eGFR (test code = eGFR) 144 [facility] WorthFcoerwuAZMBMIZYWT7139-78-61 12:52:00 Test Item Value Reference Range Interpretation Comments RBC (test code = RBC) 2.66 4.70-6.10 [place] 831202-09-19 12:52:00 Test Item Value Reference Range Interpretation Comments Hgb (test code = Hgb) 8.8 14.0-18.0 [facility] WorthIbgljbjYKCNMXGADB1207-28-91 12:52:00 Test Item Value Reference Range Interpretation Comments Hct (test code = Hct) 24.4 42.0-54.0 [facility] WorthElllsfoDHEQRJLBOR3948-08-40 12:52:00 Test Item Value Reference Range Interpretation Comments MCV (test code = MCV) 91.6 80.0-94.0 [facility] WorthNufiuvsHDWEJTQBXA2772-93-93 12:52:00 Test Item Value Reference Range Interpretation Comments MCH (test code = MCH) 33.0 pg 27.0-31.0 [facility] WorthPpzmrzhMIOCUTLJXH1047-55-81 12:52:00 Test Item Value Reference Range Interpretation Comments MCHC (test code = MCHC) 36.0 32.0-36.0 [facility] WorthEbqxlsyNTZTPCFYGX2092-07-06 12:52:00 Test Item Value Reference Range Interpretation Comments RDW (test code = RDW) 24.7 11.5-14.5 [facility] WorthMjqrttxZVTKNVWVEJ4190-78-05 12:52:00 Test Item Value Reference Range Interpretation Comments Platelet (test code = Platelet) 381 133-450 [facility] WorthApmeqfoCHWMTGQHHU5969-70-53 12:52:00 Test Item Value Reference Range Interpretation Comments MPV (test code = MPV) 6.5 7.4-10.4 [facility] WorthPstiqvdZAMJBPVXPV3955-52-49 12:52:00 Test Item Value Reference Range Interpretation Comments WBC (test code = WBC) 7.9 3.7-10.4 [place] 831202-09-19 12:52:00 Test Item Value Reference Range Interpretation Comments Retic Perf (test code = Yes (04/19/22 7:52 AM) Retic Perf) [facility] WorthTlufwwmLVBJONGUGP3390-77-33 12:52:00 Test Item Value Reference Range Interpretation Comments Retic Auto (test code = Retic Auto) 11.8 0.5-1.5 [place] 831202-09-19 12:52:00 Test Item Value Reference Range Interpretation Comments RBC Morph (test code = See Note (04/19/22 7:52 RBC Morph) AM) [facility] WorthWkkxxsoRLNZUMKIKG7254-15-33 12:52:00 Test Item Value Reference Range Interpretation Comments Plt Morph (test code = Normal (04/19/22 7:52 Plt Morph) AM) [facility] WorthFxtsktuQEDHGKFCJI2677-70-58 12:52:00 Test Item Value Reference Range Interpretation Comments Segs (test code = Segs) 53.0 45.0-75.0 [facility] WorthGmwwdpkABUYGEANHP9124-09-32 12:52:00 Test Item Value Reference Range Interpretation Comments Bands (test code = 4.0 See_Comment [Automat ed message] The Bands) system which ge nerated this result transmit aisha reference range : <=11.0. The reference r duy was not used to interpr et this result as erin l/abnormal. [facility] WorthEcfazuhAAOOBVDHBD3607-56-05 12:52:00 Test Item Value Reference Range Interpretation Comments Lymphocytes (test code = Lymphocytes) 29.0 20.0-40.0 [facility] WorthAatfukzHFSPPTKSAT3120-02-27 12:52:00 Test Item Value Reference Range Interpretation Comments Monocytes (test code = Monocytes) 7.0 2.0-12.0 [facility] WorthFvhjmpiHMPQHMZKND0729-79-03 12:52:00 Test Item Value Reference Range Interpretation Comments Eosinophils (test code = 2.0 See_Comment [A utomated message] The Eosinophils) system which ge nerated this result tra nsmitted reference range : <=4.0. The reference r duy was not used to int erpret this result as normal/abnormal . [facility] WorthSvufuzgQMPRLXCYFP5276-03-59 12:52:00 Test Item Value Reference Range Interpretation Comments Basophils (test code = 1.0 See_Comment [Aut omated message] The Basophils) system which ge nerated this result tra nsmitted reference range : <=1.0. The reference r duy was not used to int erpret this result as normal/abnormal . [facility] WorthQxovilvTHUISMRJSI0634-23-91 12:52:00 Test Item Value Reference Range Interpretation Comments Neutrophils # (test code = Neutrophils 4.5 1.5-8.1 #) [facility] WorthZxdvuddNKYSHPKWHF4111-22-81 12:52:00 Test Item Value Reference Range Interpretation Comments Lymphocytes # (test code = Lymphocytes 2.3 1.0-5.5 #) [facility] WorthWclcndtQBVEONKPDX1727-44-99 12:52:00 Test Item Value Reference Range Interpretation Comments Monocytes # (test code 0.6 See_Comment [Aut omated message] The = Monocytes #) system which generated this result tra nsmitted reference range : <=0.8. The reference r duy was not used to int erpret this result as normal/abnormal . [facility] WorthOanhypmOFJSWEZLML5433-69-89 12:52:00 Test Item Value Reference Range Interpretation Comments Eosinophils # (test code 0.2 See_Comment [A utomated message] The = Eosinophils #) system whic h generated this result tra nsmitted reference range : <=0.5. The reference r duy was not used to int erpret this result as normal/abnormal . [facility] WorthOlptasiXXGUMDIJDO3074-76-14 12:52:00 Test Item Value Reference Range Interpretation Comments Basophils # (test code 0.1 See_Comment [Aut omated message] The = Basophils #) system which generated this result tra nsmitted reference range : <=0.2. The reference r duy was not used to int erpret this result as normal/abnormal . [facility] WorthIjlrpxsALDZFZTBVI5046-43-10 12:52:00 Test Item Value Reference Range Interpretation Comments Metamyelocytes (test code 3.0 See_Comment [ Automated message] = Metamyelocytes) The system which generated this result transmitted ref erence range: <=1.0. T he reference range was not used to int erpret this result as normal/abnormal . [facility] WorthCekmusePVOXGIJVUR7032-42-80 12:52:00 Test Item Value Reference Range Interpretation Comments Myelocytes (test code = Myelocytes) 1.0 [facility] WorthGshmbflLWBXMVLUFA1015-06-29 12:52:00 Test Item Value Reference Range Interpretation Comments NRBC (test code = NRBC) 3 [facility] WorthZdzbtggWAAQJOUFOI0872-00-87 12:52:00 Test Item Value Reference Range Interpretation Comments Anisocyte (test code = 2+ *ABN*(04/19/22 Anisocyte) 7:52 AM) [facility] WorthEkhawotIDSXVUWGZA4487-80-02 12:52:00 Test Item Value Reference Range Interpretation Comments Microcyte (test code = 1+ *ABN*(04/19/22 Microcyte) 7:52 AM) [facility] WorthTmusfwkNRBTBVBNVK0916-48-88 12:52:00 Test Item Value Reference Range Interpretation Comments Hypochrom (test code = 1+ (04/19/22 7:52 AM) Hypochrom) [facility] WorthUbvpiynFKCUFMDPZP5027-81-51 12:52:00 Test Item Value Reference Range Interpretation Comments Polychrom (test code = Moderate *ABN*(04/19/22 Polychrom) 7:52 AM) [facility] WorthWgwwctgICINSJSVAG4989-90-59 12:52:00 Test Item Value Reference Range Interpretation Comments Target Cell (test code Marked *ABN*(04/19/22 = Target Cell) 7:52 AM) [facility] WorthUnjzqplVSAERFLGOI8479-61-95 12:52:00 Test Item Value Reference Range Interpretation Comments Tear Cell (test code Moderate *ABN*(04/19/22 = Tear Cell) 7:52 AM) [place] 831202-09-19 12:52:00 Test Item Value Reference Range Interpretation Comments Schistocyte (test code = 1-3 per HPF Schistocyte) (04/19/22 7:52 AM) [place] 831202-09-19 12:52:00 Test Item Value Reference Range Interpretation Comments Elliptocyte (test code = Slight *ABN*(04/19/22 Elliptocyte) 7:52 AM) [place] 831202-09-19 12:52:00 Test Item Value Reference Range Interpretation Comments Sickle Cell (test code Slight *ABN*(04/19/22 = Sickle Cell) 7:52 AM) [facility]2022-09-19 12:52:00 Test Item Value Reference Range Interpretation Comments Glucose Lvl (test code = Glucose Lvl) 98 70-99 [facility]2022-09-19 12:52:00 Test Item Value Reference Range Interpretation Comments BUN (test code = BUN) 8 - [place] 210522-09-19 12:52:00 Test Item Value Reference Range Interpretation Comments Creatinine Lvl (test code = Creatinine 0.55 0.50-1.40 Lvl) [place] 210522-09-19 12:52:00 Test Item Value Reference Range Interpretation Comments Sodium Lvl (test code = Sodium Lvl) 138 135-145 [place] 210522-09-19 12:52:00 Test Item Value Reference Range Interpretation Comments Potassium Lvl (test code = Potassium 3.9 3.5-5.1 Lvl) [place] 210522-09-19 12:52:00 Test Item Value Reference Range Interpretation Comments Chloride Lvl (test code = Chloride Lvl) 107 95-109 [facility] [id number] 12:52:00 Test Item Value Reference Range Interpretation Comments CO2 (test code = CO2) 26 24-32 [facility]2022-09-19 12:52:00 Test Item Value Reference Range Interpretation Comments Calcium Lvl (test code = Calcium Lvl) 8.8 8.5-10.5 [facility]2022-09-19 12:52:00 Test Item Value Reference Range Interpretation Comments Total Protein (test code = Total 8.2 6.4-8.4 Protein) [facility]2022-09-19 12:52:00 Test Item Value Reference Range Interpretation Comments Albumin Lvl (test code = Albumin Lvl) 4.6 3.5-5.0 [facility] MCMCA5614-27-35 12:52:00 Test Item Value Reference Range Interpretation Comments ALT (test code = ALT) 23 See_Comment [Auto mated message] The system which ge nerated this result transmit aisha reference range : <=65. The reference range was not used to interpr et this result as erin l/abnormal. [facility] SIUGD8325-79-77 12:52:00 Test Item Value Reference Range Interpretation Comments AST (test code = AST) 36 See_Comment [Auto mated message] The system which ge nerated this result transmit aisha reference range : <=37. The reference range was not used to interpr et this result as erin l/abnormal. [facility] PVAKS2226-03-54 12:52:00 Test Item Value Reference Range Interpretation Comments Alk Phos (test code = Alk Phos) 104 39-136 [facility] YTGJR9453-03-97 12:52:00 Test Item Value Reference Range Interpretation Comments Bili Total (test code = Bili Total) 4.3 0.2-1.3 [facility] CILOP1974-40-04 12:52:00 Test Item Value Reference Range Interpretation Comments AGAP (test code = AGAP) 8.9 10.0-20.0 [facility] ZJVZH8092-31-08 12:52:00 Test Item Value Reference Range Interpretation Comments B/C Ratio (test code = B/C Ratio) 15 1 6-25 [facility]2022-09-19 12:52:00 Test Item Value Reference Range Interpretation Comments Globulin (test code = Globulin) 3.6 2.7-4.2 [facility]2022-09-19 12:52:00 Test Item Value Reference Range Interpretation Comments A/G Ratio (test code = A/G Ratio) 1.3 1 0.7-1.6 [facility]2022-09-19 12:52:00 Test Item Value Reference Range Interpretation Comments eGFR (test code = eGFR) 144 [facility] WorthNhdrwxkYQCQLTZYCZ2164-47-34 12:52:00 Test Item Value Reference Range Interpretation Comments RBC (test code = RBC) 2.66 4.70-6.10 [facility] WorthZkiutkrEPXVLUCMCN8912-52-62 12:52:00 Test Item Value Reference Range Interpretation Comments Hgb (test code = Hgb) 8.8 14.0-18.0 [facility] WorthOmvgmrsXCSOTRGIVP1893-88-38 12:52:00 Test Item Value Reference Range Interpretation Comments Hct (test code = Hct) 24.4 42.0-54.0 [facility] WorthShkidhvNDCDSIBSRN2472-66-54 12:52:00 Test Item Value Reference Range Interpretation Comments MCV (test code = MCV) 91.6 80.0-94.0 [facility] WorthLlmjewzSZDKRPNRKM8073-84-44 12:52:00 Test Item Value Reference Range Interpretation Comments MCH (test code = MCH) 33.0 pg 27.0-31.0 [facility] WorthGpwadpeSFCHCHXMRT7881-94-48 12:52:00 Test Item Value Reference Range Interpretation Comments MCHC (test code = MCHC) 36.0 32.0-36.0 [facility] WorthVfumxuqIQXFVBCKMS2520-89-22 12:52:00 Test Item Value Reference Range Interpretation Comments RDW (test code = RDW) 24.7 11.5-14.5 [facility] WorthMcvnwdgBGEMNBKIDM9037-85-38 12:52:00 Test Item Value Reference Range Interpretation Comments Platelet (test code = Platelet) 381 133-450 [facility] WorthPwsiqpgZBXGMMLYMT7252-73-44 12:52:00 Test Item Value Reference Range Interpretation Comments MPV (test code = MPV) 6.5 7.4-10.4 [facility] WorthWezcaaqCSNOTUTMSL6484-63-97 12:52:00 Test Item Value Reference Range Interpretation Comments WBC (test code = WBC) 7.9 3.7-10.4 [facility] WorthTrntvqiGBBFXONZOC8593-84-27 12:52:00 Test Item Value Reference Range Interpretation Comments Retic Perf (test code = Yes (04/19/22 7:52 AM) Retic Perf) [facility] WorthUrpuxgeEOFFFYZDJT9045-34-93 12:52:00 Test Item Value Reference Range Interpretation Comments Retic Auto (test code = Retic Auto) 11.8 0.5-1.5 [facility] WorthNqujoccMINOHTQUTD6569-71-27 12:52:00 Test Item Value Reference Range Interpretation Comments RBC Morph (test code = See Note (04/19/22 7:52 RBC Morph) AM) [facility] WorthJsobnphQKQFHFUDTM8047-28-12 12:52:00 Test Item Value Reference Range Interpretation Comments Plt Morph (test code = Normal (04/19/22 7:52 Plt Morph) AM) [facility] WorthJisixvvJTMGLMZCTR7291-58-11 12:52:00 Test Item Value Reference Range Interpretation Comments Segs (test code = Segs) 53.0 45.0-75.0 [facility] WorthYhcfqifDMVPNNDBRG2638-34-80 12:52:00 Test Item Value Reference Range Interpretation Comments Bands (test code = 4.0 See_Comment [Automat ed message] The Bands) system which ge nerated this result transmit aisha reference range : <=11.0. The reference r duy was not used to interpr et this result as erin l/abnormal. [facility] WorthDcjbdxjTPRHGUQBIJ7567-49-23 12:52:00 Test Item Value Reference Range Interpretation Comments Lymphocytes (test code = Lymphocytes) 29.0 20.0-40.0 [facility] WorthMzldbnjXHWLSVRQBC2737-64-83 12:52:00 Test Item Value Reference Range Interpretation Comments Monocytes (test code = Monocytes) 7.0 2.0-12.0 [place] 831202-09-19 12:52:00 Test Item Value Reference Range Interpretation Comments Eosinophils (test code = 2.0 See_Comment [A utomated message] The Eosinophils) system which ge nerated this result tra nsmitted reference range : <=4.0. The reference r duy was not used to int erpret this result as normal/abnormal . [facility] WorthEruxclmYYIGGMLRTD1708-22-66 12:52:00 Test Item Value Reference Range Interpretation Comments Basophils (test code = 1.0 See_Comment [Aut omated message] The Basophils) system which ge nerated this result tra nsmitted reference range : <=1.0. The reference r duy was not used to int erpret this result as normal/abnormal . [facility] WorthYnmljmoRJMLKCAJDL8652-03-21 12:52:00 Test Item Value Reference Range Interpretation Comments Neutrophils # (test code = Neutrophils 4.5 1.5-8.1 #) [facility] WorthOcpfkscYGTXNHGCBC1522-41-87 12:52:00 Test Item Value Reference Range Interpretation Comments Lymphocytes # (test code = Lymphocytes 2.3 1.0-5.5 #) [facility] WorthMbinjrhVKJBHSHECF9827-22-65 12:52:00 Test Item Value Reference Range Interpretation Comments Monocytes # (test code 0.6 See_Comment [Aut omated message] The = Monocytes #) system which generated this result tra nsmitted reference range : <=0.8. The reference r duy was not used to int erpret this result as normal/abnormal . [facility] WorthBdcgqgnEBQWKCNPWW1088-33-24 12:52:00 Test Item Value Reference Range Interpretation Comments Eosinophils # (test code 0.2 See_Comment [A utomated message] The = Eosinophils #) system whic h generated this result tra nsmitted reference range : <=0.5. The reference r duy was not used to int erpret this result as normal/abnormal . [facility] WorthQsgnxasMWJFYINKPM6611-30-19 12:52:00 Test Item Value Reference Range Interpretation Comments Basophils # (test code 0.1 See_Comment [Aut omated message] The = Basophils #) system which generated this result tra nsmitted reference range : <=0.2. The reference r duy was not used to int erpret this result as normal/abnormal . [facility] WorthCochqnlAFTMGMQLRK9815-54-53 12:52:00 Test Item Value Reference Range Interpretation Comments Metamyelocytes (test code 3.0 See_Comment [ Automated message] = Metamyelocytes) The system which generated this result transmitted ref erence range: <=1.0. T he reference range was not used to int erpret this result as normal/abnormal . [facility] WorthHbapqtnZWFJNGBSQT4670-23-54 12:52:00 Test Item Value Reference Range Interpretation Comments Myelocytes (test code = Myelocytes) 1.0 [facility] WorthPujzogxTIILLQQUVL4641-11-90 12:52:00 Test Item Value Reference Range Interpretation Comments NRBC (test code = NRBC) 3 [facility] WorthHxtfeglPFGOUKLISH9740-93-30 12:52:00 Test Item Value Reference Range Interpretation Comments Anisocyte (test code = 2+ *ABN*(04/19/22 Anisocyte) 7:52 AM) [facility] WorthPspchhhWHDZARXGXC9561-68-51 12:52:00 Test Item Value Reference Range Interpretation Comments Microcyte (test code = 1+ *ABN*(04/19/22 Microcyte) 7:52 AM) [facility] WorthTqmlvdwMKFWZWEEZG0056-58-34 12:52:00 Test Item Value Reference Range Interpretation Comments Hypochrom (test code = 1+ (04/19/22 7:52 AM) Hypochrom) [facility] WorthOlywpquLCDXVVNVWG4325-24-72 12:52:00 Test Item Value Reference Range Interpretation Comments Polychrom (test code = Moderate *ABN*(04/19/22 Polychrom) 7:52 AM) [facility] WorthWhifmpxOPBIURCBKJ7439-00-40 12:52:00 Test Item Value Reference Range Interpretation Comments Target Cell (test code Marked *ABN*(04/19/22 = Target Cell) 7:52 AM) [facility] WorthRyfjpjgSNHWAHXXED5833-89-84 12:52:00 Test Item Value Reference Range Interpretation Comments Tear Cell (test code Moderate *ABN*(04/19/22 = Tear Cell) 7:52 AM) [facility] WorthJywqbsjUTZPQITXJM5681-45-53 12:52:00 Test Item Value Reference Range Interpretation Comments Schistocyte (test code = 1-3 per HPF Schistocyte) (04/19/22 7:52 AM) [facility] WorthMwlolxqPJUDBOYWLX6257-26-26 12:52:00 Test Item Value Reference Range Interpretation Comments Elliptocyte (test code = Slight *ABN*(04/19/22 Elliptocyte) 7:52 AM) [facility] WorthOtsnxziHPHZHERCPO6776-16-52 12:52:00 Test Item Value Reference Range Interpretation Comments Sickle Cell (test code Slight *ABN*(04/19/22 = Sickle Cell) 7:52 AM) [facility]CBC and ltmvxufcrnjm3223-56-46 14:00:00 Test Item Value Reference Interpretation Comments [...] Information: ? ?Site ID: RGA ? ?Name: [employer] ? ?Address: [address] [place], [place] [id number] ? ?Director: JOSÉ VEGA MD Lab Interpretation Abnormal (test code = 25008-0) [facility] dryfp0907-01-97 14:00:00 Test Item Value Reference Range Interpretation Comments GLUCOSE (test code = 72 mg/dL 65-99 ? 2345-7) Fasting referen ce interval UREA NITROGEN (BUN) 9 mg/dL 7-25 (test code = 3094-0) CREATININE (test 0.49 mg/dL 0.6-1.24 L code = 2160-0) EGFR (test code = See_Comment The eGFR i s based [id number]) on the CKD-EPI 2020 equation. To calculate the n ew eGFR from a previous Creatinine or Cystatin Cresul t, go to [email or web address] [email or web address] ca lculator [Automated message] The [...] . SODIUM (test code = 137 mmol/L 060-312 1402-2) POTASSIUM (test code 4.2 mmol/L 3.5-5.3 = 2823-3) CHLORIDE (test code 103 mmol/L 98-110 = 2075-0) CARBON DIOXIDE (test 25 mmol/L 20-32 code = 2028-9) CALCIUM (test code = 9.2 mg/dL 8.6-10.3 08369-0) PROTEIN, TOTAL (test 7.3 g/dL 6.1-8.1 code = 2885-2) ALBUMIN (test code = 4.7 g/dL 3.6-5.1 1751-7) GLOBULIN (test code See_Comment [Automa aisha = 47212-7) message] The system which generated this result [...] 3.5 mg/dL 0.2-1.2 H (test code = 1974-2) ALKALINE PHOSPHATASE 86 U/L 36-130 (test code = 6768-6) AST (test code = 31 U/L 10-40 1920-8) ALT (test code = 15 U/L 9-46 1742-6) RAC (test code = Performing RAC) Organization Information: ? ?Site ID: RGA ? ?Name: [employer] [place] ? ?Address: [address] [place] [id number] ? ?Director: JOSÉ VEGA MD Lab Interpretation Abnormal (test code = 55350-5) [facility] peljgbwrdqygd5661-80-07 14:00:00 Test Item Value Reference Range Interpretation Comments LD (test code = 74928-2) 549 U/L 100-220 H RAC (test code = RAC) Performing Organization Information: ? ?Site ID: RGA ? ?Name: [employer] [place] ? ?Address: [address] [place] [address] ? ?Director: JOSÉ VEGA MD Lab Interpretation (test Abnormal code = 26371-6) [place] BmghtaMqeafkyjorckw3710-57-90 14:00:00 Test Item Value Reference Range Interpretation Comments RETICULOCYTE COUNT, 12 % AUTOMATED (test code = 69662-6) RETICULOCYTE, See_Comment H [Automated ABSOLUTE (test code message] The = 41360-7) system which generated this result transmitted reference range : 91716 - 99543 cells/uL. The reference range was not used to interpret this result as normal/abnormal . RAC (test code = Performing RAC) Organization Information: ? ?Site ID: RGA ? ?Name: [employer] [place] ? ?Address: [address] [place] [address] ? ?Director: JOSÉ VEGA MD Lab Interpretation Abnormal (test code = 78007-2) [facility]inal[facility] with reflex aemlvnukzzr2413-32-65 11:00:00 Test Item Value Reference Range Interpretation Comments COLOR (test NOT DONE TEST NOT PERFOR MED code = 5778-6) Improper spec imen submitted.If indicated, plea se re-submitin a [facility] standard yellow-topurine tube. RAC (test code Performing = RAC) Organization Information: ? ?Site ID: [id number] ? ?Name: [employer] ? ?Address: [address] [place] [address] ? ?Director: JOSÉ VEGA MD [place] [employer] [id number] 09:34:00 Test Item Value Reference Range Interpretation Comments Glucose Lvl (test code = Glucose Lvl) 88 70-99 [facility] Myla [id number] 09:34:00 Test Item Value Reference Range Interpretation Comments BUN (test code = BUN) 7 7-22 [facility] [id number] 09:34:00 Test Item Value Reference Range Interpretation Comments Creatinine Lvl (test code = Creatinine 0.53 0.50-1.40 Lvl) [facility] [id number] 09:34:00 Test Item Value Reference Range Interpretation Comments Sodium Lvl (test code = Sodium Lvl) 131 135-145 [facility] [id number] 09:34:00 Test Item Value Reference Range Interpretation Comments Potassium Lvl (test code = Potassium 4.4 3.5-5.1 Lvl) [facility]2022-06-19 09:34:00 Test Item Value Reference Range Interpretation Comments Chloride Lvl (test code = Chloride Lvl) 99 95-109 [place] 210522-06-19 09:34:00 Test Item Value Reference Range Interpretation Comments CO2 (test code = CO2) 25 24-32 [place] 210522-06-19 09:34:00 Test Item Value Reference Range Interpretation Comments Calcium Lvl (test code = Calcium Lvl) 9.2 8.5-10.5 [place] 210522-06-19 09:34:00 Test Item Value Reference Range Interpretation Comments AGAP (test code = AGAP) 11.4 10.0-20.0 [place] 210522-06-19 09:34:00 Test Item Value Reference Range Interpretation Comments eGFR (test code = eGFR) 150 [place] 210522-06-19 09:34:00 Test Item Value Reference Range Interpretation Comments LDH (test code = LDH) 683 98-192 [place] 210522-06-19 09:34:00 Test Item Value Reference Range Interpretation Comments Bili Total (test code = Bili Total) 2.0 0.2-1.3 [place] 210522-06-19 09:34:00 Test Item Value Reference Range Interpretation Comments Bili Direct (test code 0.7 See_Comment [Aut omated message] The = Bili Direct) system which generated this result tra nsmitted reference range : <=0.3. The reference r duy was not used to int erpret this result as erin l/abnormal. [place] 210522-06-19 09:34:00 Test Item Value Reference Range Interpretation Comments Bili Indirect (test 1.3 See_Comment [Automa aisha message] The code = Bili Indirect) system which generated this result tra nsmitted reference range : <=1.0. The reference r duy was not used to int erpret this result as normal/abnormal . [facility] WorthTyfyizmKUGSJJVERF1829-49-55 09:34:00 Test Item Value Reference Range Interpretation Comments Retic Perf (test code = Yes (01/17/22 4:34 AM) Retic Perf) [facility] WorthVphrwljGGNLYQVQJR9585-72-93 09:34:00 Test Item Value Reference Range Interpretation Comments Retic Auto (test code = Retic Auto) 10.4 0.5-1.5 [facility] WorthYmdywcfBRSWYUAJHG0730-69-21 09:34:00 Test Item Value Reference Range Interpretation Comments WBC (test code = WBC) 6.9 3.7-10.4 [facility] WorthCmduuzxAMIRRTBCYA6090-19-81 09:34:00 Test Item Value Reference Range Interpretation Comments RBC (test code = RBC) 2.32 4.70-6.10 [facility] WorthXtkwbneCVZLPZKNIT5230-48-50 09:34:00 Test Item Value Reference Range Interpretation Comments Hgb (test code = Hgb) 7.5 14.0-18.0 [place] 831202-06-19 09:34:00 Test Item Value Reference Range Interpretation Comments Hct (test code = Hct) 21.8 42.0-54.0 [place] 831202-06-19 09:34:00 Test Item Value Reference Range Interpretation Comments MCV (test code = MCV) 94.2 80.0-94.0 [place] 831202-06-19 09:34:00 Test Item Value Reference Range Interpretation Comments MCH (test code = MCH) 32.2 pg 27.0-31.0 [facility] WorthIrmgaptPVGOBPUQSR3382-85-06 09:34:00 Test Item Value Reference Range Interpretation Comments MCHC (test code = MCHC) 34.2 32.0-36.0 [facility] WorthHtgrnitPYKEHNYOBZ5194-35-51 09:34:00 Test Item Value Reference Range Interpretation Comments RDW (test code = RDW) 22.6 11.5-14.5 [place] 831202-06-19 09:34:00 Test Item Value Reference Range Interpretation Comments Platelet (test code = Platelet) 422 133-450 [place] 831202-06-19 09:34:00 Test Item Value Reference Range Interpretation Comments MPV (test code = MPV) 7.7 7.4-10.4 [place] 831202-06-19 09:34:00 Test Item Value Reference Range Interpretation Comments Segs (test code = Segs) 58.0 45.0-75.0 [facility] WorthQjbudzvNBWTVKCFFV6919-80-84 09:34:00 Test Item Value Reference Range Interpretation Comments Lymphocytes (test code = Lymphocytes) 23.0 20.0-40.0 [facility] WorthUmaqbkdJJDULPIISS2524-01-96 09:34:00 Test Item Value Reference Range Interpretation Comments Monocytes (test code = Monocytes) 16.0 2.0-12.0 [place] 831202-06-19 09:34:00 Test Item Value Reference Range Interpretation Comments Eosinophils (test code = 3.0 See_Comment [A utomated message] The Eosinophils) system which ge nerated this result tra nsmitted reference range : <=4.0. The reference r duy was not used to int erpret this result as normal/abnormal . [facility] WorthZtribmaITFXBCWLNW6940-60-98 09:34:00 Test Item Value Reference Range Interpretation Comments Neutrophils # (test code = Neutrophils 4.0 1.5-8.1 #) [facility] WorthRunzkkuJCXYIMRPQJ3731-95-44 09:34:00 Test Item Value Reference Range Interpretation Comments Lymphocytes # (test code = Lymphocytes 1.6 1.0-5.5 #) [facility] WorthBxosvytXQYHODNVJM7438-51-44 09:34:00 Test Item Value Reference Range Interpretation Comments Monocytes # (test code 1.1 See_Comment [Aut omated message] The = Monocytes #) system which generated this result tra nsmitted reference range : <=0.8. The reference r duy was not used to int erpret this result as normal/abnormal . [facility] WorthTtpbckdZQNTZKXIXJ6491-55-93 09:34:00 Test Item Value Reference Range Interpretation Comments Eosinophils # (test code 0.2 See_Comment [A utomated message] The = Eosinophils #) system ic generated this result tra nsmitted reference range : <=0.5. The reference r duy was not used to int erpret this result as normal/abnormal . [facility] WorthSuacxjwKEXUOAMEHO4858-40-92 09:34:00 Test Item Value Reference Range Interpretation Comments NRBC (test code = NRBC) 46 [facility] WorthLpppagkQMSULMZNWQ9510-40-60 09:34:00 Test Item Value Reference Range Interpretation Comments Tot Cell Ct (test code = Tot Cell Ct) 100 1 [place] 831202-06-19 09:34:00 Test Item Value Reference Range Interpretation Comments Anisocyte (test code = 2+ *ABN*(01/17/22 Anisocyte) 4:34 AM) [facility] WorthLhwrfpuQMWOMTEEPK0849-03-00 09:34:00 Test Item Value Reference Range Interpretation Comments Macrocyte (test code = 1+ *ABN*(01/17/22 Macrocyte) 4:34 AM) [facility] WorthWturztzCYTSATMUKF9729-03-74 09:34:00 Test Item Value Reference Range Interpretation Comments Microcyte (test code = 1+ *ABN*(01/17/22 Microcyte) 4:34 AM) [facility] WorthCopvcxlMLPEDTIVMN8576-77-97 09:34:00 Test Item Value Reference Range Interpretation Comments Hypochrom (test code = 1+ (01/17/22 4:34 AM) Hypochrom) [facility] WorthDsvrcfjJFWZXQNFXK0110-11-15 09:34:00 Test Item Value Reference Range Interpretation Comments Polychrom (test code = Moderate *ABN*(01/17/22 Polychrom) 4:34 AM) [facility] WorthXaxrzsbNAIWOQZOVA8676-09-44 09:34:00 Test Item Value Reference Range Interpretation Comments Target Cell (test code Marked *ABN*(01/17/22 = Target Cell) 4:34 AM) [facility] WorthQqwxkkkBTNYSSHKEO3372-07-80 09:34:00 Test Item Value Reference Range Interpretation Comments Sickle Cell (test code Slight *ABN*(01/17/22 = Sickle Cell) 4:34 AM) [facility] WorthGohtmwcUOMMIMPJQW6535-67-58 09:34:00 Test Item Value Reference Range Interpretation Comments Large Plt (test code Moderate *ABN*(01/17/22 = Large Plt) 4:34 AM) [facility]2022-06-19 09:34:00 Test Item Value Reference Range Interpretation Comments Glucose Lvl (test code = Glucose Lvl) 88 70-99 [facility]2022-06-19 09:34:00 Test Item Value Reference Range Interpretation Comments BUN (test code = BUN) 7 7- [facility]2022-06-19 09:34:00 Test Item Value Reference Range Interpretation Comments Creatinine Lvl (test code = Creatinine 0.53 0.50-1.40 Lvl) [facility]2022-06-19 09:34:00 Test Item Value Reference Range Interpretation Comments Sodium Lvl (test code = Sodium Lvl) 131 135-145 [place] 210522-06-19 09:34:00 Test Item Value Reference Range Interpretation Comments Potassium Lvl (test code = Potassium 4.4 3.5-5.1 Lvl) [place] 210522-06-19 09:34:00 Test Item Value Reference Range Interpretation Comments Chloride Lvl (test code = Chloride Lvl) 99 95-109 [place] 210522-06-19 09:34:00 Test Item Value Reference Range Interpretation Comments CO2 (test code = CO2) 25 24-32 [place] 210522-06-19 09:34:00 Test Item Value Reference Range Interpretation Comments Calcium Lvl (test code = Calcium Lvl) 9.2 8.5-10.5 [place] 210522-06-19 09:34:00 Test Item Value Reference Range Interpretation Comments AGAP (test code = AGAP) 11.4 10.0-20.0 [place] 210522-06-19 09:34:00 Test Item Value Reference Range Interpretation Comments eGFR (test code = eGFR) 150 [place] 210522-06-19 09:34:00 Test Item Value Reference Range Interpretation Comments LDH (test code = LDH) 683 98-192 [place] 210522-06-19 09:34:00 Test Item Value Reference Range Interpretation Comments Bili Total (test code = Bili Total) 2.0 0.2-1.3 [place] 210522-06-19 09:34:00 Test Item Value Reference Range Interpretation Comments Bili Direct (test code 0.7 See_Comment [Aut omated message] The = Bili Direct) system which generated this result tra nsmitted reference range : <=0.3. The reference r duy was not used to int erpret this result as erin l/abnormal. [place] 210522-06-19 09:34:00 Test Item Value Reference Range Interpretation Comments Bili Indirect (test 1.3 See_Comment [Automa aisha message] The code = Bili Indirect) system which generated this result tra nsmitted reference range : <=1.0. The reference r duy was not used to int erpret this result as normal/abnormal . [facility] WorthJrfivquGRYVJKXQYQ2098-48-77 09:34:00 Test Item Value Reference Range Interpretation Comments Retic Perf (test code = Yes (01/17/22 4:34 AM) Retic Perf) [facility] WorthOabxjdyZJNIUASFWZ5599-06-81 09:34:00 Test Item Value Reference Range Interpretation Comments Retic Auto (test code = Retic Auto) 10.4 0.5-1.5 [facility] WorthYmhgfboFCMNIVGDIE1021-35-39 09:34:00 Test Item Value Reference Range Interpretation Comments WBC (test code = WBC) 6.9 3.7-10.4 [facility] WorthBnsytixBJLMQOOATS8627-87-33 09:34:00 Test Item Value Reference Range Interpretation Comments RBC (test code = RBC) 2.32 4.70-6.10 [facility] WorthLidwjblIMNBUJWXAC3222-98-56 09:34:00 Test Item Value Reference Range Interpretation Comments Hgb (test code = Hgb) 7.5 14.0-18.0 [facility] WorthYgahbszZFIADTRIKV4116-36-61 09:34:00 Test Item Value Reference Range Interpretation Comments Hct (test code = Hct) 21.8 42.0-54.0 [facility] WorthQovltneJNESNXAZGM9131-65-82 09:34:00 Test Item Value Reference Range Interpretation Comments MCV (test code = MCV) 94.2 80.0-94.0 [facility] WorthWvprvmkNSIEBDWIUZ6450-30-38 09:34:00 Test Item Value Reference Range Interpretation Comments MCH (test code = MCH) 32.2 pg 27.0-31.0 [facility] WorthRmrvwtaTVBGHLZVJI8174-80-15 09:34:00 Test Item Value Reference Range Interpretation Comments MCHC (test code = MCHC) 34.2 32.0-36.0 [facility] WorthKoieuisUAURRGICVZ7555-30-87 09:34:00 Test Item Value Reference Range Interpretation Comments RDW (test code = RDW) 22.6 11.5-14.5 [place] 831202-06-19 09:34:00 Test Item Value Reference Range Interpretation Comments Platelet (test code = Platelet) 422 133-450 [facility] WorthDilxpsrAISDRCUVJD2948-21-62 09:34:00 Test Item Value Reference Range Interpretation Comments MPV (test code = MPV) 7.7 7.4-10.4 [place] 831202-06-19 09:34:00 Test Item Value Reference Range Interpretation Comments Segs (test code = Segs) 58.0 45.0-75.0 [facility] WorthVowynmrRPDYJDXYAT3391-33-68 09:34:00 Test Item Value Reference Range Interpretation Comments Lymphocytes (test code = Lymphocytes) 23.0 20.0-40.0 [facility] WorthDnwjsimBUPLOPXSYL2114-23-07 09:34:00 Test Item Value Reference Range Interpretation Comments Monocytes (test code = Monocytes) 16.0 2.0-12.0 [place] 831202-06-19 09:34:00 Test Item Value Reference Range Interpretation Comments Eosinophils (test code = 3.0 See_Comment [A utomated message] The Eosinophils) system which ge nerated this result tra nsmitted reference range : <=4.0. The reference r duy was not used to int erpret this result as normal/abnormal . [facility] WorthQvmikqqPUMRHLQHIM6161-02-09 09:34:00 Test Item Value Reference Range Interpretation Comments Neutrophils # (test code = Neutrophils 4.0 1.5-8.1 #) [facility] WorthTanzwirLNXDVBOCJS3007-61-93 09:34:00 Test Item Value Reference Range Interpretation Comments Lymphocytes # (test code = Lymphocytes 1.6 1.0-5.5 #) [facility] WorthKjrsgeaQPNMLHBZAB5671-47-63 09:34:00 Test Item Value Reference Range Interpretation Comments Monocytes # (test code 1.1 See_Comment [Aut omated message] The = Monocytes #) system which generated this result tra nsmitted reference range : <=0.8. The reference r duy was not used to int erpret this result as normal/abnormal . [facility] WorthHvaslnoMWILNFHLXM0261-11-17 09:34:00 Test Item Value Reference Range Interpretation Comments Eosinophils # (test code 0.2 See_Comment [A utomated message] The = Eosinophils #) system whic h generated this result tra nsmitted reference range : <=0.5. The reference r duy was not used to int erpret this result as normal/abnormal . [facility] WorthXfxtgdqGDMDFQFPHG2876-36-88 09:34:00 Test Item Value Reference Range Interpretation Comments NRBC (test code = NRBC) 46 [facility] WorthWxwdarhGMJSOJRWJC8517-75-80 09:34:00 Test Item Value Reference Range Interpretation Comments Tot Cell Ct (test code = Tot Cell Ct) 100 1 [place] 831202-06-19 09:34:00 Test Item Value Reference Range Interpretation Comments Anisocyte (test code = 2+ *ABN*(01/17/22 Anisocyte) 4:34 AM) [facility] WorthKlzsbkkOTFLINMYYV7952-70-71 09:34:00 Test Item Value Reference Range Interpretation Comments Macrocyte (test code = 1+ *ABN*(01/17/22 Macrocyte) 4:34 AM) [facility] WorthVwcujrsNNCRBIDMOY4547-56-34 09:34:00 Test Item Value Reference Range Interpretation Comments Microcyte (test code = 1+ *ABN*(01/17/22 Microcyte) 4:34 AM) [facility] WorthPostgtlDDPOXSDQKM2113-55-97 09:34:00 Test Item Value Reference Range Interpretation Comments Hypochrom (test code = 1+ (01/17/22 4:34 AM) Hypochrom) [facility] WorthNelpliqEHCKCVLDQF4382-81-72 09:34:00 Test Item Value Reference Range Interpretation Comments Polychrom (test code = Moderate *ABN*(01/17/22 Polychrom) 4:34 AM) [facility] WorthIbxjthrLXVBWNXCYT2965-81-01 09:34:00 Test Item Value Reference Range Interpretation Comments Target Cell (test code Marked *ABN*(01/17/22 = Target Cell) 4:34 AM) [facility] WorthSffntyxISUPMHFKUG2867-42-95 09:34:00 Test Item Value Reference Range Interpretation Comments Sickle Cell (test code Slight *ABN*(01/17/22 = Sickle Cell) 4:34 AM) [facility] WorthZxwrtdiRWNFKIANEY1085-76-97 09:34:00 Test Item Value Reference Range Interpretation Comments Large Plt (test code Moderate *ABN*(01/17/22 = Large Plt) 4:34 AM) [facility]2022-06-19 09:34:00 Test Item Value Reference Range Interpretation Comments Glucose Lvl (test code = Glucose Lvl) 88 70-99 [facility]2022-06-19 09:34:00 Test Item Value Reference Range Interpretation Comments BUN (test code = BUN) 02-19 [facility]2022-06-19 09:34:00 Test Item Value Reference Range Interpretation Comments Creatinine Lvl (test code = Creatinine 0.53 0.50-1.40 Lvl) [facility]2022-06-19 09:34:00 Test Item Value Reference Range Interpretation Comments Sodium Lvl (test code = Sodium Lvl) 131 135-145 [place] 210522-06-19 09:34:00 Test Item Value Reference Range Interpretation Comments Potassium Lvl (test code = Potassium 4.4 3.5-5.1 Lvl) [place] 210522-06-19 09:34:00 Test Item Value Reference Range Interpretation Comments Chloride Lvl (test code = Chloride Lvl) 99 95-109 [place] 210522-06-19 09:34:00 Test Item Value Reference Range Interpretation Comments CO2 (test code = CO2) 25 24-32 [place] 210522-06-19 09:34:00 Test Item Value Reference Range Interpretation Comments Calcium Lvl (test code = Calcium Lvl) 9.2 8.5-10.5 [place] 210522-06-19 09:34:00 Test Item Value Reference Range Interpretation Comments AGAP (test code = AGAP) 11.4 10.0-20.0 [place] 210522-06-19 09:34:00 Test Item Value Reference Range Interpretation Comments eGFR (test code = eGFR) 150 [place] 210522-06-19 09:34:00 Test Item Value Reference Range Interpretation Comments LDH (test code = LDH) 683 98-192 [place] 210522-06-19 09:34:00 Test Item Value Reference Range Interpretation Comments Bili Total (test code = Bili Total) 2.0 0.2-1.3 [place] 210522-06-19 09:34:00 Test Item Value Reference Range Interpretation Comments Bili Direct (test code 0.7 See_Comment [Aut omated message] The = Bili Direct) system which generated this result tra nsmitted reference range : <=0.3. The reference r duy was not used to int erpret this result as erin l/abnormal. [place] 210522-06-19 09:34:00 Test Item Value Reference Range Interpretation Comments Bili Indirect (test 1.3 See_Comment [Automa aisha message] The code = Bili Indirect) system which generated this result tra nsmitted reference range : <=1.0. The reference r duy was not used to int erpret this result as normal/abnormal . [facility] WorthUgrfspfVKLFPARIHZ9729-49-52 09:34:00 Test Item Value Reference Range Interpretation Comments Retic Perf (test code = Yes (01/17/22 4:34 AM) Retic Perf) [facility] WorthPbcasgvSBJRYEUJWH0684-32-14 09:34:00 Test Item Value Reference Range Interpretation Comments Retic Auto (test code = Retic Auto) 10.4 0.5-1.5 [facility] WorthAfwdfebFNYKFUBAXP7067-13-98 09:34:00 Test Item Value Reference Range Interpretation Comments WBC (test code = WBC) 6.9 3.7-10.4 [facility] WorthZgadyakCSGOCSDLAQ2920-48-99 09:34:00 Test Item Value Reference Range Interpretation Comments RBC (test code = RBC) 2.32 4.70-6.10 [facility] WorthSdjgnnnQBXZYDOYRU7756-35-85 09:34:00 Test Item Value Reference Range Interpretation Comments Hgb (test code = Hgb) 7.5 14.0-18.0 [facility] WorthWdkcdogRFDPCFEWBN9878-32-96 09:34:00 Test Item Value Reference Range Interpretation Comments Hct (test code = Hct) 21.8 42.0-54.0 [facility] WorthZvoxaijSXCWHOGRHQ3022-85-27 09:34:00 Test Item Value Reference Range Interpretation Comments MCV (test code = MCV) 94.2 80.0-94.0 [facility] WorthUylqnmcBVYRCGDUGO0105-98-15 09:34:00 Test Item Value Reference Range Interpretation Comments MCH (test code = MCH) 32.2 pg 27.0-31.0 [facility] WorthQmycxafECJGMMZEFN3353-04-29 09:34:00 Test Item Value Reference Range Interpretation Comments MCHC (test code = MCHC) 34.2 32.0-36.0 [facility] WorthYzeqnqmXLVELWLUQZ1184-12-76 09:34:00 Test Item Value Reference Range Interpretation Comments RDW (test code = RDW) 22.6 11.5-14.5 [facility] WorthRwubahbNDZMPZHJLO4371-73-19 09:34:00 Test Item Value Reference Range Interpretation Comments Platelet (test code = Platelet) 422 133-450 [facility] WorthDxgmwggHJAZHGCGBQ3861-25-56 09:34:00 Test Item Value Reference Range Interpretation Comments MPV (test code = MPV) 7.7 7.4-10.4 [place] 831202-06-19 09:34:00 Test Item Value Reference Range Interpretation Comments Segs (test code = Segs) 58.0 45.0-75.0 [place] 831202-06-19 09:34:00 Test Item Value Reference Range Interpretation Comments Lymphocytes (test code = Lymphocytes) 23.0 20.0-40.0 [place] 831202-06-19 09:34:00 Test Item Value Reference Range Interpretation Comments Monocytes (test code = Monocytes) 16.0 2.0-12.0 [place] 831202-06-19 09:34:00 Test Item Value Reference Range Interpretation Comments Eosinophils (test code = 3.0 See_Comment [A utomated message] The Eosinophils) system which ge nerated this result tra nsmitted reference range : <=4.0. The reference r duy was not used to int erpret this result as normal/abnormal . [facility] WorthKtnkaciVWUJZRMTMW6902-85-03 09:34:00 Test Item Value Reference Range Interpretation Comments Neutrophils # (test code = Neutrophils 4.0 1.5-8.1 #) [place] [address]-06-19 09:34:00 Test Item Value Reference Range Interpretation Comments Lymphocytes # (test code = Lymphocytes 1.6 1.0-5.5 #) [place] [address]-06-19 09:34:00 Test Item Value Reference Range Interpretation Comments Monocytes # (test code 1.1 See_Comment [Aut omated message] The = Monocytes #) system which generated this result tra nsmitted reference range : <=0.8. The reference r duy was not used to int erpret this result as normal/abnormal . [place] 831202-06-19 09:34:00 Test Item Value Reference Range Interpretation Comments Eosinophils # (test code 0.2 See_Comment [A utomated message] The = Eosinophils #) system whic h generated this result tra nsmitted reference range : <=0.5. The reference r duy was not used to int erpret this result as normal/abnormal . [place] 831202-06-19 09:34:00 Test Item Value Reference Range Interpretation Comments NRBC (test code = NRBC) 46 [place] [address]-06-19 09:34:00 Test Item Value Reference Range Interpretation Comments Tot Cell Ct (test code = Tot Cell Ct) 100 1 [facility] [facility]DpcoqcxFKRBVRAQPH0993-69-57 09:34:00 Test Item Value Reference Range Interpretation Comments Anisocyte (test code = 2+ *ABN*(01/17/22 Anisocyte) 4:34 AM) [facility] WorthFygcryiPBGKXJRXFS3565-96-07 09:34:00 Test Item Value Reference Range Interpretation Comments Macrocyte (test code = 1+ *ABN*(01/17/22 Macrocyte) 4:34 AM) [facility] WorthZbhoojsPVKUPEVTZU7585-91-17 09:34:00 Test Item Value Reference Range Interpretation Comments Microcyte (test code = 1+ *ABN*(01/17/22 Microcyte) 4:34 AM) [facility] WorthHthxoeeDUYOXTEQPH0907-09-16 09:34:00 Test Item Value Reference Range Interpretation Comments Hypochrom (test code = 1+ (01/17/22 4:34 AM) Hypochrom) [facility] WorthDykewwbNBLOJBVXZB5618-12-20 09:34:00 Test Item Value Reference Range Interpretation Comments Polychrom (test code = Moderate *ABN*(01/17/22 Polychrom) 4:34 AM) [facility] WorthZjswtwkBDFZQHEUFX0223-36-77 09:34:00 Test Item Value Reference Range Interpretation Comments Target Cell (test code Marked *ABN*(01/17/22 = Target Cell) 4:34 AM) [facility] WorthWlurokhLYYSXBVDWO8432-53-18 09:34:00 Test Item Value Reference Range Interpretation Comments Sickle Cell (test code Slight *ABN*(01/17/22 = Sickle Cell) 4:34 AM) [facility] WorthZayexteIJEAHIENWS9664-51-46 09:34:00 Test Item Value Reference Range Interpretation Comments Large Plt (test code Moderate *ABN*(01/17/22 = Large Plt) 4:34 AM) [facility] WorthPlqortyNMQVDOLQLC1634-03-43 09:47:00 Test Item Value Reference Range Interpretation Comments Lymphocytes (test code = Lymphocytes) 27.0 20.0-40.0 [facility] WorthShcirhpMSUNNYRZGV4152-91-15 09:47:00 Test Item Value Reference Range Interpretation Comments Monocytes (test code = Monocytes) 7.0 2.0-12.0 [place] 831202-06-18 09:47:00 Test Item Value Reference Range Interpretation Comments Eosinophils (test code = 2.0 See_Comment [A utomated message] The Eosinophils) system which ge nerated this result tra nsmitted reference range : <=4.0. The reference r duy was not used to int erpret this result as normal/abnormal . [facility] WorthFiodemoSTVEXPADSJ3171-43-01 09:47:00 Test Item Value Reference Range Interpretation Comments Metamyelocytes (test code 1.0 See_Comment [ Automated message] = Metamyelocytes) The system which generated this result transmitted ref erence range: <=1.0. T he reference range was not used to int erpret this result as normal/abnormal . [facility] WorthEquvcqvWCKNPYSRFZ3328-24-82 09:47:00 Test Item Value Reference Range Interpretation Comments Atypical Lymphs (test code = Atypical 0.0 Lymphs) [facility] WorthLfunvebARMGPCCAYI4332-73-85 09:47:00 Test Item Value Reference Range Interpretation Comments NRBC (test code = NRBC) 31 [facility] WorthPzdqojrTCLSNAEVLZ4969-89-34 09:47:00 Test Item Value Reference Range Interpretation Comments RBC Morph (test code = See Note (01/16/22 4:47 RBC Morph) AM) [facility] WorthVnjaoyhPTITRNIYZB1783-21-70 09:47:00 Test Item Value Reference Range Interpretation Comments Plt Morph (test code = See Note (01/16/22 4:47 Plt Morph) AM) [facility] WorthYttfpicYQPRJFMYGL4943-03-89 09:47:00 Test Item Value Reference Range Interpretation Comments Tot Cell Ct (test code = Tot Cell Ct) 100 1 [facility] WorthDtukqnlKBAFYNEQHI9207-16-13 09:47:00 Test Item Value Reference Range Interpretation Comments Anisocyte (test code = 2+ *ABN*(01/16/22 Anisocyte) 4:47 AM) [place] 831202-06-18 09:47:00 Test Item Value Reference Range Interpretation Comments Macrocyte (test code = 1+ *ABN*(01/16/22 Macrocyte) 4:47 AM) [place] 831202-06-18 09:47:00 Test Item Value Reference Range Interpretation Comments Polychrom (test code = Moderate *ABN*(01/16/22 Polychrom) 4:47 AM) [facility] WorthAfoygnxAGJHWOZKLW2752-18-49 09:47:00 Test Item Value Reference Range Interpretation Comments Target Cell (test code Moderate *ABN*(01/16/22 = Target Cell) 4:47 AM) [facility] WorthRitylmlXSZLXIRLEH4241-22-30 09:47:00 Test Item Value Reference Range Interpretation Comments Elliptocyte (test code = Slight *ABN*(01/16/22 Elliptocyte) 4:47 AM) [facility] WorthFtsxagcPJOXTDBTEZ8279-69-67 09:47:00 Test Item Value Reference Range Interpretation Comments Sickle Cell (test code Slight *ABN*(01/16/22 = Sickle Cell) 4:47 AM) [facility] WorthBnhuetcLASFJPMHNT1753-68-49 09:47:00 Test Item Value Reference Range Interpretation Comments Giant Plt (test code Moderate *ABN*(01/16/22 = Giant Plt) 4:47 AM) [facility] WorthTurywlbDDVCNQCTCC5206-94-75 09:47:00 Test Item Value Reference Range Interpretation Comments WBC (test code = WBC) 7.9 3.7-10.4 [facility] WorthQklkdhwSLEJPHVTEN4396-13-20 09:47:00 Test Item Value Reference Range Interpretation Comments RBC (test code = RBC) 2.23 4.70-6.10 [facility] WorthDmnfmmpDJFFXAXWXU9556-79-77 09:47:00 Test Item Value Reference Range Interpretation Comments Hgb (test code = Hgb) 7.0 14.0-18.0 [facility] WorthVweflonEOCJIRQEIS8624-24-22 09:47:00 Test Item Value Reference Range Interpretation Comments Hct (test code = Hct) 20.5 42.0-54.0 [facility] WorthGurhahmPXWZPXOXLY6085-99-33 09:47:00 Test Item Value Reference Range Interpretation Comments MCV (test code = MCV) 91.7 80.0-94.0 [facility] WorthRlbxvebJNJOTYDDOE5377-95-47 09:47:00 Test Item Value Reference Range Interpretation Comments MCH (test code = MCH) 31.2 pg 27.0-31.0 [facility] WorthXyoysqkDPVFGSWYSP5189-44-04 09:47:00 Test Item Value Reference Range Interpretation Comments MCHC (test code = MCHC) 34.0 32.0-36.0 [facility] WorthPvkxpebNUSDSEXOMZ5419-95-14 09:47:00 Test Item Value Reference Range Interpretation Comments RDW (test code = RDW) 22.7 11.5-14.5 [facility] WorthVwmioejYHYDRCMSXI8424-25-57 09:47:00 Test Item Value Reference Range Interpretation Comments Platelet (test code = Platelet) 332 133-450 [facility] WorthSegaevbWEWFYMJWSH3085-94-64 09:47:00 Test Item Value Reference Range Interpretation Comments MPV (test code = MPV) 7.7 7.4-10.4 [facility] QVXTZ2908-91-01 09:47:00 Test Item Value Reference Range Interpretation Comments Ferritin Lvl (test code = Ferritin Lvl) 6899 22-655 [facility] OOXCXKU4642-86-82 09:47:00 Test Item Value Reference Range Interpretation Comments proBNP (test code = 8 See_Comment [Automa aisha message] The proBNP) system which ge nerated this result tra nsmitted reference range : <=125. The reference r duy was not used to int erpret this result as erin l/abnormal. [facility]2022-06-18 09:47:00 Test Item Value Reference Range Interpretation Comments LDH (test code = LDH) 722 98-192 [facility]2022-06-18 09:47:00 Test Item Value Reference Range Interpretation Comments Bili Total (test code = Bili Total) 3.3 0.2-1.3 [facility]2022-06-18 09:47:00 Test Item Value Reference Range Interpretation Comments Bili Direct (test code 1.4 See_Comment [Aut omated message] The = Bili Direct) system which generated this result tra nsmitted reference range : <=0.3. The reference r duy was not used to int erpret this result as erin l/abnormal. [facility]2022-06-18 09:47:00 Test Item Value Reference Range Interpretation Comments Bili Indirect (test 1.9 See_Comment [Automa aisha message] The code = Bili Indirect) system which generated this result tra nsmitted reference range : <=1.0. The reference r duy was not used to int erpret this result as normal/abnormal . [facility]2022-06-18 09:47:00 Test Item Value Reference Range Interpretation Comments Glucose Lvl (test code = Glucose Lvl) 99 70-99 [facility]2022-06-18 09:47:00 Test Item Value Reference Range Interpretation Comments BUN (test code = BUN) 9 7-22 [facility]2022-06-18 09:47:00 Test Item Value Reference Range Interpretation Comments Creatinine Lvl (test code = Creatinine 0.47 0.50-1.40 Lvl) [facility]2022-06-18 09:47:00 Test Item Value Reference Range Interpretation Comments Sodium Lvl (test code = Sodium Lvl) 132 135-145 [facility] BTXXJ8024-22-00 09:47:00 Test Item Value Reference Range Interpretation Comments Ferritin Lvl (test code = Ferritin Lvl) 6899 57-077 [facility] RCOERKJ2880-24-46 09:47:00 Test Item Value Reference Range Interpretation Comments proBNP (test code = 8 See_Comment [Automa aisha message] The proBNP) system which ge nerated this result tra nsmitted reference range : <=125. The reference r duy was not used to int erpret this result as erin l/abnormal. [facility]2022-06-18 09:47:00 Test Item Value Reference Range Interpretation Comments LDH (test code = LDH) 722 98-192 [facility]2022-06-18 09:47:00 Test Item Value Reference Range Interpretation Comments Bili Total (test code = Bili Total) 3.3 0.2-1.3 [facility]2022-06-18 09:47:00 Test Item Value Reference Range Interpretation Comments Bili Direct (test code 1.4 See_Comment [Aut omated message] The = Bili Direct) system which generated this result tra nsmitted reference range : <=0.3. The reference r duy was not used to int erpret this result as erin l/abnormal. [facility]2022-06-18 09:47:00 Test Item Value Reference Range Interpretation Comments Bili Indirect (test 1.9 See_Comment [Automa aisha message] The code = Bili Indirect) system which generated this result tra nsmitted reference range : <=1.0. The reference r duy was not used to int erpret this result as normal/abnormal . [facility]2022-06-18 09:47:00 Test Item Value Reference Range Interpretation Comments Glucose Lvl (test code = Glucose Lvl) 99 70-99 [place] 210522-06-18 09:47:00 Test Item Value Reference Range Interpretation Comments BUN (test code = BUN) 9 7-22 [place] 210522-06-18 09:47:00 Test Item Value Reference Range Interpretation Comments Creatinine Lvl (test code = Creatinine 0.47 0.50-1.40 Lvl) [place] 210522-06-18 09:47:00 Test Item Value Reference Range Interpretation Comments Sodium Lvl (test code = Sodium Lvl) 132 135-145 [place] 210522-06-18 09:47:00 Test Item Value Reference Range Interpretation Comments Potassium Lvl (test code = Potassium 4.0 3.5-5.1 Lvl) [place] 210522-06-18 09:47:00 Test Item Value Reference Range Interpretation Comments Chloride Lvl (test code = Chloride Lvl) 97 95-109 [place] 210522-06-18 09:47:00 Test Item Value Reference Range Interpretation Comments CO2 (test code = CO2) 27 24-32 [place] 210522-06-18 09:47:00 Test Item Value Reference Range Interpretation Comments Calcium Lvl (test code = Calcium Lvl) 9.2 8.5-10.5 [place] 210522-06-18 09:47:00 Test Item Value Reference Range Interpretation Comments AGAP (test code = AGAP) 12.0 10.0-20.0 [place] 210522-06-18 09:47:00 Test Item Value Reference Range Interpretation Comments eGFR (test code = eGFR) 158 [place] 831202-06-18 09:47:00 Test Item Value Reference Range Interpretation Comments Retic Perf (test code = Yes (01/16/22 4:47 AM) Retic Perf) [place] 831202-06-18 09:47:00 Test Item Value Reference Range Interpretation Comments Retic Auto (test code = Retic Auto) 8.6 0.5-1.5 [place] 831202-06-18 09:47:00 Test Item Value Reference Range Interpretation Comments Neutrophils # (test code = Neutrophils 5.0 1.5-8.1 #) [place] 831202-06-18 09:47:00 Test Item Value Reference Range Interpretation Comments Lymphocytes # (test code = Lymphocytes 2.1 1.0-5.5 #) [place] [address]-06-18 09:47:00 Test Item Value Reference Range Interpretation Comments Monocytes # (test code 0.6 See_Comment [Aut omated message] The = Monocytes #) system which generated this result tra nsmitted reference range : <=0.8. The reference r duy was not used to int erpret this result as normal/abnormal . [place] [address]-06-18 09:47:00 Test Item Value Reference Range Interpretation Comments Eosinophils # (test code 0.2 See_Comment [A utomated message] The = Eosinophils #) system whic h generated this result tra nsmitted reference range : <=0.5. The reference r duy was not used to int erpret this result as normal/abnormal . [place] [address]-06-18 09:47:00 Test Item Value Reference Range Interpretation Comments Segs (test code = Segs) 63.0 45.0-75.0 [place] [address]-06-18 09:47:00 Test Item Value Reference Range Interpretation Comments Bands (test code = 0.0 See_Comment [Automat ed message] The Bands) system which ge nerated this result transmit aisha reference range : <=11.0. The reference r duy was not used to interpr et this result as erin l/abnormal. [place] [address]-06-18 09:47:00 Test Item Value Reference Range Interpretation Comments Lymphocytes (test code = Lymphocytes) 27.0 20.0-40.0 [place] [address]-06-18 09:47:00 Test Item Value Reference Range Interpretation Comments Monocytes (test code = Monocytes) 7.0 2.0-12.0 [place] [address]-06-18 09:47:00 Test Item Value Reference Range Interpretation Comments Eosinophils (test code = 2.0 See_Comment [A utomated message] The Eosinophils) system which ge nerated this result tra nsmitted reference range : <=4.0. The reference r duy was not used to int erpret this result as normal/abnormal . [place] [address]-06-18 09:47:00 Test Item Value Reference Range Interpretation Comments Metamyelocytes (test code 1.0 See_Comment [ Automated message] = Metamyelocytes) The system which generated this result transmitted ref erence range: <=1.0. T he reference range was not used to int erpret this result as normal/abnormal . [facility] WorthKbgslulYNYYWMQMUE7192-66-21 09:47:00 Test Item Value Reference Range Interpretation Comments Atypical Lymphs (test code = Atypical 0.0 Lymphs) [facility] WorthCuqqntrSUBKDTXAWA8629-60-74 09:47:00 Test Item Value Reference Range Interpretation Comments NRBC (test code = NRBC) 31 [place] 831202-06-18 09:47:00 Test Item Value Reference Range Interpretation Comments RBC Morph (test code = See Note (01/16/22 4:47 RBC Morph) AM) [place] 831202-06-18 09:47:00 Test Item Value Reference Range Interpretation Comments Plt Morph (test code = See Note (01/16/22 4:47 Plt Morph) AM) [place] 831202-06-18 09:47:00 Test Item Value Reference Range Interpretation Comments Tot Cell Ct (test code = Tot Cell Ct) 100 1 [facility] WorthYnrvngwAJMRZFHUTR3935-93-50 09:47:00 Test Item Value Reference Range Interpretation Comments Anisocyte (test code = 2+ *ABN*(01/16/22 Anisocyte) 4:47 AM) [facility] WorthHhqpzdjBZGBONTLEF9116-61-98 09:47:00 Test Item Value Reference Range Interpretation Comments Macrocyte (test code = 1+ *ABN*(01/16/22 Macrocyte) 4:47 AM) [place] 831202-06-18 09:47:00 Test Item Value Reference Range Interpretation Comments Polychrom (test code = Moderate *ABN*(01/16/22 Polychrom) 4:47 AM) [place] 831202-06-18 09:47:00 Test Item Value Reference Range Interpretation Comments Target Cell (test code Moderate *ABN*(01/16/22 = Target Cell) 4:47 AM) [place] 831202-06-18 09:47:00 Test Item Value Reference Range Interpretation Comments Elliptocyte (test code = Slight *ABN*(01/16/22 Elliptocyte) 4:47 AM) [place] 831202-06-18 09:47:00 Test Item Value Reference Range Interpretation Comments Sickle Cell (test code Slight *ABN*(01/16/22 = Sickle Cell) 4:47 AM) [facility] WorthHdgdtgrORXXREMSAF9104-98-15 09:47:00 Test Item Value Reference Range Interpretation Comments Giant Plt (test code Moderate *ABN*(01/16/22 = Giant Plt) 4:47 AM) [facility] WorthJejlbtuTNPVEHXCDN9271-57-22 09:47:00 Test Item Value Reference Range Interpretation Comments WBC (test code = WBC) 7.9 3.7-10.4 [facility] WorthIuklhmxKORJMBHDMM0181-65-63 09:47:00 Test Item Value Reference Range Interpretation Comments RBC (test code = RBC) 2.23 4.70-6.10 [facility] WorthMntrjigCLKKNVDKVZ2054-36-29 09:47:00 Test Item Value Reference Range Interpretation Comments Hgb (test code = Hgb) 7.0 14.0-18.0 [facility] WorthEotbhiqVKGJQOCUKW5013-18-10 09:47:00 Test Item Value Reference Range Interpretation Comments Hct (test code = Hct) 20.5 42.0-54.0 [facility] WorthPxvddgsKEHMSGWSAB2820-31-68 09:47:00 Test Item Value Reference Range Interpretation Comments MCV (test code = MCV) 91.7 80.0-94.0 [facility] WorthKsmaahjUMMOQJWQEX5155-45-70 09:47:00 Test Item Value Reference Range Interpretation Comments MCH (test code = MCH) 31.2 pg 27.0-31.0 [facility] WorthUiuvgjoMDTNGIBWJP8921-45-96 09:47:00 Test Item Value Reference Range Interpretation Comments MCHC (test code = MCHC) 34.0 32.0-36.0 [facility] WorthNjhkrauUSPZLEZLJH6441-89-31 09:47:00 Test Item Value Reference Range Interpretation Comments RDW (test code = RDW) 22.7 11.5-14.5 [place] 831202-06-18 09:47:00 Test Item Value Reference Range Interpretation Comments Platelet (test code = Platelet) 332 133-450 [facility] WorthVpkywwhLRKYINKUIW4051-14-88 09:47:00 Test Item Value Reference Range Interpretation Comments MPV (test code = MPV) 7.7 7.4-10.4 [facility]2022-06-18 09:47:00 Test Item Value Reference Range Interpretation Comments Potassium Lvl (test code = Potassium 4.0 3.5-5.1 Lvl) [place] 210522-06-18 09:47:00 Test Item Value Reference Range Interpretation Comments Chloride Lvl (test code = Chloride Lvl) 97 95-[address]06-18 09:47:00 Test Item Value Reference Range Interpretation Comments CO2 (test code = CO2) 27 24-[address]06-18 09:47:00 Test Item Value Reference Range Interpretation Comments Calcium Lvl (test code = Calcium Lvl) 9.2 8.5-10.[address]06-18 09:47:00 Test Item Value Reference Range Interpretation Comments AGAP (test code = AGAP) 12.0 10.0-20.0 [place] 210522-06-18 09:47:00 Test Item Value Reference Range Interpretation Comments eGFR (test code = eGFR) 158 [place] [address]-06-18 09:47:00 Test Item Value Reference Range Interpretation Comments Retic Perf (test code = Yes (01/16/22 4:47 AM) Retic Perf) [place] [address]-06-18 09:47:00 Test Item Value Reference Range Interpretation Comments Retic Auto (test code = Retic Auto) 8.6 0.5-1.5 [place] 831202-06-18 09:47:00 Test Item Value Reference Range Interpretation Comments Neutrophils # (test code = Neutrophils 5.0 1.5-8.1 #) [place] [address]-06-18 09:47:00 Test Item Value Reference Range Interpretation Comments Lymphocytes # (test code = Lymphocytes 2.1 1.0-5.5 #) [place] [address]-06-18 09:47:00 Test Item Value Reference Range Interpretation Comments Monocytes # (test code 0.6 See_Comment [Aut omated message] The = Monocytes #) system which generated this result tra nsmitted reference range : <=0.8. The reference r duy was not used to int erpret this result as normal/abnormal . [place] 831202-06-18 09:47:00 Test Item Value Reference Range Interpretation Comments Eosinophils # (test code 0.2 See_Comment [A utomated message] The = Eosinophils #) system whic h generated this result tra nsmitted reference range : <=0.5. The reference r duy was not used to int erpret this result as normal/abnormal . [facility] WorthFtyeqhkKVNKWRGTEL4793-24-64 09:47:00 Test Item Value Reference Range Interpretation Comments Segs (test code = Segs) 63.0 45.0-75.0 [place] 831202-06-18 09:47:00 Test Item Value Reference Range Interpretation Comments Bands (test code = 0.0 See_Comment [Automat ed message] The Bands) system which ge nerated this result transmit aisha reference range : <=11.0. The reference r duy was not used to interpr et this result as erin l/abnormal. [facility] WorthRwvtybcZRDARIMOOW9232-99-72 09:47:00 Test Item Value Reference Range Interpretation Comments Lymphocytes (test code = Lymphocytes) 27.0 20.0-40.0 [place] 831202-06-18 09:47:00 Test Item Value Reference Range Interpretation Comments Monocytes (test code = Monocytes) 7.0 2.0-12.0 [facility] WorthZstgwxwMJRCMCDGLN6380-42-11 09:47:00 Test Item Value Reference Range Interpretation Comments Eosinophils (test code = 2.0 See_Comment [A utomated message] The Eosinophils) system which ge nerated this result tra nsmitted reference range : <=4.0. The reference r duy was not used to int erpret this result as normal/abnormal . [facility] WorthYqrhuqnXLRVUSNFEO6149-78-30 09:47:00 Test Item Value Reference Range Interpretation Comments Metamyelocytes (test code 1.0 See_Comment [ Automated message] = Metamyelocytes) The system which generated this result transmitted ref erence range: <=1.0. T he reference range was not used to int erpret this result as normal/abnormal . [place] 831202-06-18 09:47:00 Test Item Value Reference Range Interpretation Comments Atypical Lymphs (test code = Atypical 0.0 Lymphs) [facility] WorthKftjivlGAJSMWDAEV7553-66-15 09:47:00 Test Item Value Reference Range Interpretation Comments NRBC (test code = NRBC) 31 [place] 831202-06-18 09:47:00 Test Item Value Reference Range Interpretation Comments RBC Morph (test code = See Note (01/16/22 4:47 RBC Morph) AM) [facility] WorthXepvoyrXNGJCOABBY5823-50-88 09:47:00 Test Item Value Reference Range Interpretation Comments Plt Morph (test code = See Note (01/16/22 4:47 Plt Morph) AM) [facility] WorthFcgzmxxWOCDKUKJXE2758-20-17 09:47:00 Test Item Value Reference Range Interpretation Comments Tot Cell Ct (test code = Tot Cell Ct) 100 1 [facility] WorthNngmkcbELASMBWTJC7541-03-68 09:47:00 Test Item Value Reference Range Interpretation Comments Anisocyte (test code = 2+ *ABN*(01/16/22 Anisocyte) 4:47 AM) [facility] WorthZhxppyjSYQHXPBHPU8052-61-53 09:47:00 Test Item Value Reference Range Interpretation Comments Macrocyte (test code = 1+ *ABN*(01/16/22 Macrocyte) 4:47 AM) [facility] WorthAuimnrjHSELORXOEE5200-73-23 09:47:00 Test Item Value Reference Range Interpretation Comments Polychrom (test code = Moderate *ABN*(01/16/22 Polychrom) 4:47 AM) [facility] WorthKpjnorvKUGYKSWFQL9472-10-48 09:47:00 Test Item Value Reference Range Interpretation Comments Target Cell (test code Moderate *ABN*(01/16/22 = Target Cell) 4:47 AM) [facility] WorthJgjutorTWEVQTCDCO9289-20-27 09:47:00 Test Item Value Reference Range Interpretation Comments Elliptocyte (test code = Slight *ABN*(01/16/22 Elliptocyte) 4:47 AM) [facility] WorthDgrlmogORQHFFVVNH7006-49-02 09:47:00 Test Item Value Reference Range Interpretation Comments Sickle Cell (test code Slight *ABN*(01/16/22 = Sickle Cell) 4:47 AM) [facility] WorthAgujcorGUGLUSFKFY6055-81-29 09:47:00 Test Item Value Reference Range Interpretation Comments Giant Plt (test code Moderate *ABN*(01/16/22 = Giant Plt) 4:47 AM) [facility] WorthSomzmpfDHLLXLMSXI1409-42-70 09:47:00 Test Item Value Reference Range Interpretation Comments WBC (test code = WBC) 7.9 3.7-10.4 [facility] WorthDwbewqnWCNUTILJRU3551-20-38 09:47:00 Test Item Value Reference Range Interpretation Comments RBC (test code = RBC) 2.23 4.70-6.10 [facility] CenterEcmoozfZVJNMYITYU5716-14-63 09:47:00 Test Item Value Reference Range Interpretation Comments Hgb (test code = Hgb) 7.0 14.0-18.0 [facility] CenterZuoxmnoLTXKPXAHCK2122-86-83 09:47:00 Test Item Value Reference Range Interpretation Comments Hct (test code = Hct) 20.5 42.0-54.0 [facility]JtiatlnZPXUZXTZMD4462-26-33 09:47:00 Test Item Value Reference Range Interpretation Comments MCV (test code = MCV) 91.7 80.0-94.0 [facility] HospitalWguefldGQIUWDDDZX0115-22-49 09:47:00 Test Item Value Reference Range Interpretation Comments MCH (test code = MCH) 31.2 pg 27.0-31.0 [facility] HospitalUrlxahpTZIWLQEDLV0111-93-13 09:47:00 Test Item Value Reference Range Interpretation Comments MCHC (test code = MCHC) 34.0 32.0-36.0 [facility] HospitalNtlfjprJPAQZEEDGU3942-60-81 09:47:00 Test Item Value Reference Range Interpretation Comments RDW (test code = RDW) 22.7 11.5-14.5 [facility] HospitalAnhiwdnRTTVLZWDEP0863-78-13 09:47:00 Test Item Value Reference Range Interpretation Comments Platelet (test code = Platelet) 332 133-450 [facility] CenterKxspcimQNOSTIZWNJ6108-88-15 09:47:00 Test Item Value Reference Range Interpretation Comments MPV (test code = MPV) 7.7 7.4-10.4 [facility]ervilleannANEMIA [id number] 09:47:00 Test Item Value Reference Range Interpretation Comments Ferritin Lvl (test code = Ferritin Lvl) 6899 22-003 [facility] CenterCARDIAC LCGWRBZ0546-30-48 09:47:00 Test Item Value Reference Range Interpretation Comments proBNP (test code = 8 See_Comment [Automa aisha message] The proBNP) system which ge nerated this result tra nsmitted reference range : <=125. The reference r duy was not used to int erpret this result as erin l/abnormal. [facility] CenterCHEM [id number] 09:47:00 Test Item Value Reference Range Interpretation Comments LDH (test code = LDH) 722 98-192 [place] 210522-06-18 09:47:00 Test Item Value Reference Range Interpretation Comments Bili Total (test code = Bili Total) 3.3 0.2-1.3 [place] 210522-06-18 09:47:00 Test Item Value Reference Range Interpretation Comments Bili Direct (test code 1.4 See_Comment [Aut omated message] The = Bili Direct) system which generated this result tra nsmitted reference range : <=0.3. The reference r duy was not used to int erpret this result as erin l/abnormal. [place] 210522-06-18 09:47:00 Test Item Value Reference Range Interpretation Comments Bili Indirect (test 1.9 See_Comment [Automa aisha message] The code = Bili Indirect) system which generated this result tra nsmitted reference range : <=1.0. The reference r duy was not used to int erpret this result as normal/abnormal . [place] 210522-06-18 09:47:00 Test Item Value Reference Range Interpretation Comments Glucose Lvl (test code = Glucose Lvl) 99 70-99 [place] 210522-06-18 09:47:00 Test Item Value Reference Range Interpretation Comments BUN (test code = BUN) 9 7-22 [place] 210522-06-18 09:47:00 Test Item Value Reference Range Interpretation Comments Creatinine Lvl (test code = Creatinine 0.47 0.50-1.40 Lvl) [place] 210522-06-18 09:47:00 Test Item Value Reference Range Interpretation Comments Sodium Lvl (test code = Sodium Lvl) 132 135-145 [place] 210522-06-18 09:47:00 Test Item Value Reference Range Interpretation Comments Potassium Lvl (test code = Potassium 4.0 3.5-5.1 Lvl) [place] 210522-06-18 09:47:00 Test Item Value Reference Range Interpretation Comments Chloride Lvl (test code = Chloride Lvl) 97 95-109 [place] 210522-06-18 09:47:00 Test Item Value Reference Range Interpretation Comments CO2 (test code = CO2) 27 24-32 [place] 210522-06-18 09:47:00 Test Item Value Reference Range Interpretation Comments Calcium Lvl (test code = Calcium Lvl) 9.2 8.5-10.5 [place] 210522-06-18 09:47:00 Test Item Value Reference Range Interpretation Comments AGAP (test code = AGAP) 12.0 10.0-20.0 [place] 210522-06-18 09:47:00 Test Item Value Reference Range Interpretation Comments eGFR (test code = eGFR) 158 [place] 831202-06-18 09:47:00 Test Item Value Reference Range Interpretation Comments Retic Perf (test code = Yes (01/16/22 4:47 AM) Retic Perf) [place] 831202-06-18 09:47:00 Test Item Value Reference Range Interpretation Comments Retic Auto (test code = Retic Auto) 8.6 0.5-1.5 [place] 831202-06-18 09:47:00 Test Item Value Reference Range Interpretation Comments Neutrophils # (test code = Neutrophils 5.0 1.5-8.1 #) [place] 831202-06-18 09:47:00 Test Item Value Reference Range Interpretation Comments Lymphocytes # (test code = Lymphocytes 2.1 1.0-5.5 #) [place] 831202-06-18 09:47:00 Test Item Value Reference Range Interpretation Comments Monocytes # (test code 0.6 See_Comment [Aut omated message] The = Monocytes #) system which generated this result tra nsmitted reference range : <=0.8. The reference r duy was not used to int erpret this result as normal/abnormal . [place] 831202-06-18 09:47:00 Test Item Value Reference Range Interpretation Comments Eosinophils # (test code 0.2 See_Comment [A utomated message] The = Eosinophils #) system whic h generated this result tra nsmitted reference range : <=0.5. The reference r duy was not used to int erpret this result as normal/abnormal . [place] 831202-06-18 09:47:00 Test Item Value Reference Range Interpretation Comments Segs (test code = Segs) 63.0 45.0-75.0 [place] 831202-06-18 09:47:00 Test Item Value Reference Range Interpretation Comments Bands (test code = 0.0 See_Comment [Automat ed message] The Bands) system which ge nerated this result transmit aisha reference range : <=11.0. The reference r duy was not used to interpr et this result as erin l/abnormal. [facility]ervilleDream VillageL [id number] 17:10:00 Test Item Value Reference Range Interpretation Comments Source Strep (test code Urine *NA*(01/14/22 = Source Strep) 12:10 PM) [facility]ervilleTrinity Energy GroupCTERIAL - [id number] 17:10:00 Test Item Value Reference Range Interpretation Comments Strep pneumoniae Ag Negative (01/14/22 (test code = Strep 12:10 PM) pneumoniae Ag) [facility]ervilleSigmascreeningREG[facility] [id number] 17:10:00 Test Item Value Reference Range Interpretation Comments Source Strep (test code Urine *NA*(01/14/22 = Source Strep) 12:10 PM) [facility]ervilleTr[facility] Energy GroupCTERIAL - [id number] 17:10:00 Test Item Value Reference Range Interpretation Comments Strep pneumoniae Ag Negative (01/14/22 (test code = Strep 12:10 PM) pneumoniae Ag) [facility]ervilleTrinity Energy GroupCTAs Seen on TVL - [id number] 17:10:00 Test Item Value Reference Range Interpretation Comments Source Strep (test code Urine *NA*(01/14/22 = Source Strep) 12:10 PM) [facility]ervilleTrinity Energy GroupCTERIAL - [id number] 17:10:00 Test Item Value Reference Range Interpretation Comments Strep pneumoniae Ag Negative (01/14/22 (test code = Strep 12:10 PM) pneumoniae Ag) [facility] Myla [id number] 08:01:00 Test Item Value Reference Range Interpretation Comments Glucose Lvl (test code = Glucose Lvl) 130 70-99 [facility] Myla [id number] 08:01:00 Test Item Value Reference Range Interpretation Comments BUN (test code = BUN) 10 7-22 [facility]ervilleNextVR [id number] 08:01:00 Test Item Value Reference Range Interpretation Comments Creatinine Lvl (test code = Creatinine 0.48 0.50-1.40 Lvl) [facility] Myla [id number] 08:01:00 Test Item Value Reference Range Interpretation Comments Sodium Lvl (test code = Sodium Lvl) 132 135-145 [place] 210522-06-16 08:01:00 Test Item Value Reference Range Interpretation Comments Potassium Lvl (test code = Potassium 3.8 3.5-5.1 Lvl) [place] 210522-06-16 08:01:00 Test Item Value Reference Range Interpretation Comments Chloride Lvl (test code = Chloride Lvl) 97 95-109 [place] 210522-06-16 08:01:00 Test Item Value Reference Range Interpretation Comments CO2 (test code = CO2) 28 24-32 [place] 210522-06-16 08:01:00 Test Item Value Reference Range Interpretation Comments Calcium Lvl (test code = Calcium Lvl) 8.4 8.5-10.5 [place] 210522-06-16 08:01:00 Test Item Value Reference Range Interpretation Comments AGAP (test code = AGAP) 10.8 10.0-20.0 [place] 210522-06-16 08:01:00 Test Item Value Reference Range Interpretation Comments eGFR (test code = eGFR) 156 [place] 831202-06-16 08:01:00 Test Item Value Reference Range Interpretation Comments WBC (test code = WBC) 7.8 3.7-10.4 [place] 831202-06-16 08:01:00 Test Item Value Reference Range Interpretation Comments RBC (test code = RBC) 2.23 4.70-6.10 [place] 831202-06-16 08:01:00 Test Item Value Reference Range Interpretation Comments Hgb (test code = Hgb) 7.4 14.0-18.0 [place] [address]-06-16 08:01:00 Test Item Value Reference Range Interpretation Comments Hct (test code = Hct) 20.5 42.0-54.0 [place] 831202-06-16 08:01:00 Test Item Value Reference Range Interpretation Comments MCV (test code = MCV) 92.0 80.0-94.0 [place] [address]-06-16 08:01:00 Test Item Value Reference Range Interpretation Comments MCH (test code = MCH) 33.2 pg 27.0-31.0 [facility] WorthEcmpvfbSBOGXHNYXU9403-54-79 08:01:00 Test Item Value Reference Range Interpretation Comments MCHC (test code = MCHC) 36.1 32.0-36.0 [facility] WorthQjfvzqqXKHRICSBND6425-98-96 08:01:00 Test Item Value Reference Range Interpretation Comments RDW (test code = RDW) 21.4 11.5-14.5 [facility] WorthMkmqcpfEWDRXSQAJI5370-75-33 08:01:00 Test Item Value Reference Range Interpretation Comments Platelet (test code = Platelet) 215 133-450 [facility] WorthGamgjgtYLZSHMTFCX0052-89-30 08:01:00 Test Item Value Reference Range Interpretation Comments MPV (test code = MPV) 7.9 7.4-10.4 [facility] WorthQdgkkajIXDVEVCETS0704-38-40 08:01:00 Test Item Value Reference Range Interpretation Comments RBC Morph (test code = See Note (01/14/22 3:01 RBC Morph) AM) [facility] WorthLheyhlcMRRHYSBAML2675-82-65 08:01:00 Test Item Value Reference Range Interpretation Comments Plt Morph (test code = Normal (01/14/22 3:01 Plt Morph) AM) [facility] WorthKnpxbdbADLRSWNCMB0323-02-03 08:01:00 Test Item Value Reference Range Interpretation Comments Anisocyte (test code = 1+ *ABN*(01/14/22 Anisocyte) 3:01 AM) [facility] WorthXhaqnzdNJNKDSTRAO5061-69-70 08:01:00 Test Item Value Reference Range Interpretation Comments Macrocyte (test code = 1+ *ABN*(01/14/22 Macrocyte) 3:01 AM) [facility] WorthPzlxoapRQVTOLTTTH0082-13-54 08:01:00 Test Item Value Reference Range Interpretation Comments Microcyte (test code = 1+ *ABN*(01/14/22 Microcyte) 3:01 AM) [facility] WorthWpxbrrvTNEKDTMDBV6585-17-98 08:01:00 Test Item Value Reference Range Interpretation Comments Polychrom (test code = Moderate *ABN*(01/14/22 Polychrom) 3:01 AM) [facility] WorthNrtmychJGLISCPWPU2889-27-46 08:01:00 Test Item Value Reference Range Interpretation Comments Target Cell (test code Moderate *ABN*(01/14/22 = Target Cell) 3:01 AM) [facility] WorthVvrihxzPBVEVMTHJX7790-84-90 08:01:00 Test Item Value Reference Range Interpretation Comments Schistocyte (test code = 1-3 per HPF Schistocyte) (01/14/22 3:01 AM) [facility] WorthLrfmtlzGYQZSLNHDE5629-57-46 08:01:00 Test Item Value Reference Range Interpretation Comments Spherocyte (test code = Occasional Spherocyte) *ABN*(01/14/22 3:01 AM) [facility] WorthJgbhfiuDGYIQEOXGA2940-37-39 08:01:00 Test Item Value Reference Range Interpretation Comments Sickle Cell (test code Moderate *ABN*(01/14/22 = Sickle Cell) 3:01 AM) [facility] WorthJbtobmdLGJWUQQFAI8548-83-15 08:01:00 Test Item Value Reference Range Interpretation Comments Segs (test code = Segs) 77.1 45.0-75.0 [place] 831202-06-16 08:01:00 Test Item Value Reference Range Interpretation Comments Lymphocytes (test code = Lymphocytes) 9.8 20.0-40.0 [place] 831202-06-16 08:01:00 Test Item Value Reference Range Interpretation Comments Monocytes (test code = Monocytes) 11.2 2.0-12.0 [facility] WorthTqrcsfpSBXNZUFPOA2154-47-97 08:01:00 Test Item Value Reference Range Interpretation Comments Eosinophils (test code = 1.1 See_Comment [A utomated message] The Eosinophils) system which nerated this result tra nsmitted reference range : <=4.0. The reference r duy was not used to int erpret this result as normal/abnormal . [facility] WorthZeyvbsuQDKHRPZXAD4424-43-91 08:01:00 Test Item Value Reference Range Interpretation Comments Basophils (test code = 0.8 See_Comment [Aut omated message] The Basophils) system which ge nerated this result tra nsmitted reference range : <=1.0. The reference r duy was not used to int erpret this result as normal/abnormal . [facility] WorthCbesggeINXWEUVYBT4371-34-95 08:01:00 Test Item Value Reference Range Interpretation Comments Neutrophils # (test code = Neutrophils 6.0 1.5-8.1 #) [facility] WorthQbbdtmnKFFWECBSBF0571-94-39 08:01:00 Test Item Value Reference Range Interpretation Comments Lymphocytes # (test code = Lymphocytes 0.8 1.0-5.5 #) [place] 831202-06-16 08:01:00 Test Item Value Reference Range Interpretation Comments Monocytes # (test code 0.9 See_Comment [Aut omated message] The = Monocytes #) system which generated this result tra nsmitted reference range : <=0.8. The reference r duy was not used to int erpret this result as normal/abnormal . [place] 831202-06-16 08:01:00 Test Item Value Reference Range Interpretation Comments Basophils # (test code 0.1 See_Comment [Aut omated message] The = Basophils #) system which generated this result tra nsmitted reference range : <=0.2. The reference r duy was not used to int erpret this result as normal/abnormal . [facility]ervilleNextVR [id number] 08:01:00 Test Item Value Reference Range Interpretation Comments Glucose Lvl (test code = Glucose Lvl) 130 70-99 [facility]ervilleNext[facility] [id number] 08:01:00 Test Item Value Reference Range Interpretation Comments BUN (test code = BUN) 10 7-22 [facility]ervilleNext[facility] [id number] 08:01:00 Test Item Value Reference Range Interpretation Comments Creatinine Lvl (test code = Creatinine 0.48 0.50-1.40 Lvl) [facility]Next[facility] [id number] 08:01:00 Test Item Value Reference Range Interpretation Comments Sodium Lvl (test code = Sodium Lvl) 132 135-145 [facility]ervilleNext[facility] [id number] 08:01:00 Test Item Value Reference Range Interpretation Comments Potassium Lvl (test code = Potassium 3.8 3.5-5.1 Lvl) [facility]Next[facility] [id number] 08:01:00 Test Item Value Reference Range Interpretation Comments Chloride Lvl (test code = Chloride Lvl) 97 95-109 [facility]ervilleNext[facility] [id number] 08:01:00 Test Item Value Reference Range Interpretation Comments CO2 (test code = CO2) 28 24-32 [facility] CenterCareView Communications [id number] 08:01:00 Test Item Value Reference Range Interpretation Comments Calcium Lvl (test code = Calcium Lvl) 8.4 8.5-10.5 [facility]ervilleNext[facility] [id number] 08:01:00 Test Item Value Reference Range Interpretation Comments AGAP (test code = AGAP) 10.8 10.0-20.0 [facility] [id number] 08:01:00 Test Item Value Reference Range Interpretation Comments eGFR (test code = eGFR) 156 [facility] WorthQwaxlbpHBAOHBMZJH2290-32-62 08:01:00 Test Item Value Reference Range Interpretation Comments WBC (test code = WBC) 7.8 3.7-10.4 [facility] WorthGjeihzzLOSPRESHTS3961-08-45 08:01:00 Test Item Value Reference Range Interpretation Comments RBC (test code = RBC) 2.23 4.70-6.10 [facility] CenterRvdlndfMTWBUHUQMA0888-15-88 08:01:00 Test Item Value Reference Range Interpretation Comments Hgb (test code = Hgb) 7.4 14.0-18.0 [facility] WorthNeapyiqMFLBSCGEUK4692-97-55 08:01:00 Test Item Value Reference Range Interpretation Comments Hct (test code = Hct) 20.5 42.0-54.0 [facility] WorthCyttxshQVTPFWYGNZ5283-14-89 08:01:00 Test Item Value Reference Range Interpretation Comments MCV (test code = MCV) 92.0 80.0-94.0 [facility] WorthVlyjwijMNBSHEWPQL0275-53-56 08:01:00 Test Item Value Reference Range Interpretation Comments MCH (test code = MCH) 33.2 pg 27.0-31.0 [facility] WorthAkrhtuoOHYQGEIJIA6995-60-60 08:01:00 Test Item Value Reference Range Interpretation Comments MCHC (test code = MCHC) 36.1 32.0-36.0 [facility] WorthCaqvminGJLOJOQLDR7066-75-11 08:01:00 Test Item Value Reference Range Interpretation Comments RDW (test code = RDW) 21.4 11.5-14.5 [facility] WorthQonvtvdATZHCDJASF5652-51-78 08:01:00 Test Item Value Reference Range Interpretation Comments Platelet (test code = Platelet) 215 133-450 [facility] [id number] 08:01:00 Test Item Value Reference Range Interpretation Comments MPV (test code = MPV) 7.9 7.4-10.4 [facility] WorthVuosublLKSCDQATTV5463-67-26 08:01:00 Test Item Value Reference Range Interpretation Comments RBC Morph (test code = See Note (01/14/22 3:01 RBC Morph) AM) [facility] WorthOdpvokxAOKZBYHPHK8265-16-67 08:01:00 Test Item Value Reference Range Interpretation Comments Plt Morph (test code = Normal (01/14/22 3:01 Plt Morph) AM) [facility] WorthCdfwlqrWLFIILZAJX9048-96-80 08:01:00 Test Item Value Reference Range Interpretation Comments Anisocyte (test code = 1+ *ABN*(01/14/22 Anisocyte) 3:01 AM) [facility] WorthPxlzhtqDEVDUUMRTY3674-77-90 08:01:00 Test Item Value Reference Range Interpretation Comments Macrocyte (test code = 1+ *ABN*(01/14/22 Macrocyte) 3:01 AM) [facility] WorthCfjaghcDBMZHSYRQY5120-18-84 08:01:00 Test Item Value Reference Range Interpretation Comments Microcyte (test code = 1+ *ABN*(01/14/22 Microcyte) 3:01 AM) [facility] WorthRlnjtuwLJNSGSLWXZ6373-88-10 08:01:00 Test Item Value Reference Range Interpretation Comments Polychrom (test code = Moderate *ABN*(01/14/22 Polychrom) 3:01 AM) [facility] WorthAofjuqqMULDZSJJHE6143-22-78 08:01:00 Test Item Value Reference Range Interpretation Comments Target Cell (test code Moderate *ABN*(01/14/22 = Target Cell) 3:01 AM) [facility] WorthEejzbffLQBCRKNCML4637-63-39 08:01:00 Test Item Value Reference Range Interpretation Comments Schistocyte (test code = 1-3 per HPF Schistocyte) (01/14/22 3:01 AM) [facility] WorthEopnauqHKUNPUKHOS4789-68-44 08:01:00 Test Item Value Reference Range Interpretation Comments Spherocyte (test code = Occasional Spherocyte) *ABN*(01/14/22 3:01 AM) [facility] WorthEgxyxufSNGGIJIDXV8359-42-88 08:01:00 Test Item Value Reference Range Interpretation Comments Sickle Cell (test code Moderate *ABN*(01/14/22 = Sickle Cell) 3:01 AM) [facility] WorthTuwmtawBWOFBGDOVA5301-13-12 08:01:00 Test Item Value Reference Range Interpretation Comments Segs (test code = Segs) 77.1 45.0-75.0 [facility] WorthIqvqlmhYGWBNKCEIT2079-69-12 08:01:00 Test Item Value Reference Range Interpretation Comments Lymphocytes (test code = Lymphocytes) 9.8 20.0-40.0 [place] [address]-06-16 08:01:00 Test Item Value Reference Range Interpretation Comments Monocytes (test code = Monocytes) 11.2 2.0-12.0 [place] [address]-06-16 08:01:00 Test Item Value Reference Range Interpretation Comments Eosinophils (test code = 1.1 See_Comment [A utomated message] The Eosinophils) system which ge nerated this result tra nsmitted reference range : <=4.0. The reference r duy was not used to int erpret this result as normal/abnormal . [place] [address]-06-16 08:01:00 Test Item Value Reference Range Interpretation Comments Basophils (test code = 0.8 See_Comment [Aut omated message] The Basophils) system which ge nerated this result tra nsmitted reference range : <=1.0. The reference r duy was not used to int erpret this result as normal/abnormal . [place] 831202-06-16 08:01:00 Test Item Value Reference Range Interpretation Comments Neutrophils # (test code = Neutrophils 6.0 1.5-8.1 #) [place] [address]-06-16 08:01:00 Test Item Value Reference Range Interpretation Comments Lymphocytes # (test code = Lymphocytes 0.8 1.0-5.5 #) [place] [address]-06-16 08:01:00 Test Item Value Reference Range Interpretation Comments Monocytes # (test code 0.9 See_Comment [Aut omated message] The = Monocytes #) system which generated this result tra nsmitted reference range : <=0.8. The reference r duy was not used to int erpret this result as normal/abnormal . [place] [address]-06-16 08:01:00 Test Item Value Reference Range Interpretation Comments Basophils # (test code 0.1 See_Comment [Aut omated message] The = Basophils #) system which generated this result tra nsmitted reference range : <=0.2. The reference r duy was not used to int erpret this result as normal/abnormal . [facility]Next[facility] [id number] 08:01:00 Test Item Value Reference Range Interpretation Comments Glucose Lvl (test code = Glucose Lvl) 130 70-99 [facility]Next[facility] [id number] 08:01:00 Test Item Value Reference Range Interpretation Comments BUN (test code = BUN) 10 7-22 [place] 210522-06-16 08:01:00 Test Item Value Reference Range Interpretation Comments Creatinine Lvl (test code = Creatinine 0.48 0.50-1.40 Lvl) [place] 210522-06-16 08:01:00 Test Item Value Reference Range Interpretation Comments Sodium Lvl (test code = Sodium Lvl) 132 135-145 [place] 210522-06-16 08:01:00 Test Item Value Reference Range Interpretation Comments Potassium Lvl (test code = Potassium 3.8 3.5-5.1 Lvl) [place] 210522-06-16 08:01:00 Test Item Value Reference Range Interpretation Comments Chloride Lvl (test code = Chloride Lvl) 97 95-109 [place] 210522-06-16 08:01:00 Test Item Value Reference Range Interpretation Comments CO2 (test code = CO2) 28 24-32 [place] 210522-06-16 08:01:00 Test Item Value Reference Range Interpretation Comments Calcium Lvl (test code = Calcium Lvl) 8.4 8.5-10.5 [place] 210522-06-16 08:01:00 Test Item Value Reference Range Interpretation Comments AGAP (test code = AGAP) 10.8 10.0-20.0 [place] 210522-06-16 08:01:00 Test Item Value Reference Range Interpretation Comments eGFR (test code = eGFR) 156 [facility] WorthYowswuuMEQYUEDAQN2140-11-95 08:01:00 Test Item Value Reference Range Interpretation Comments WBC (test code = WBC) 7.8 3.7-10.4 [place] [address]-06-16 08:01:00 Test Item Value Reference Range Interpretation Comments RBC (test code = RBC) 2.23 4.70-6.10 [place] 831202-06-16 08:01:00 Test Item Value Reference Range Interpretation Comments Hgb (test code = Hgb) 7.4 14.0-18.0 [place] 831202-06-16 08:01:00 Test Item Value Reference Range Interpretation Comments Hct (test code = Hct) 20.5 42.0-54.0 [place] 831202-06-16 08:01:00 Test Item Value Reference Range Interpretation Comments MCV (test code = MCV) 92.0 80.0-94.0 [facility] WorthKetehibMREDABLJNF9216-02-20 08:01:00 Test Item Value Reference Range Interpretation Comments MCH (test code = MCH) 33.2 pg 27.0-31.0 [facility] WorthLtzjjxqAJSTFSIWOR4231-59-75 08:01:00 Test Item Value Reference Range Interpretation Comments MCHC (test code = MCHC) 36.1 32.0-36.0 [facility] WorthHymuuloFZGXOKFANH4162-98-34 08:01:00 Test Item Value Reference Range Interpretation Comments RDW (test code = RDW) 21.4 11.5-14.5 [facility] WorthSaxmcbgDYORMEFYSB9711-73-74 08:01:00 Test Item Value Reference Range Interpretation Comments Platelet (test code = Platelet) 215 133-450 [facility] WorthHkkwtquDEBZDNBIJL1677-56-12 08:01:00 Test Item Value Reference Range Interpretation Comments MPV (test code = MPV) 7.9 7.4-10.4 [facility] WorthIemproyAZSIOAKYGE8598-63-54 08:01:00 Test Item Value Reference Range Interpretation Comments RBC Morph (test code = See Note (01/14/22 3:01 RBC Morph) AM) [facility] WorthBttnnsxUBHJQRSNTJ2169-19-77 08:01:00 Test Item Value Reference Range Interpretation Comments Plt Morph (test code = Normal (01/14/22 3:01 Plt Morph) AM) [facility] WorthZpnituoJCOOXZLPEN4550-72-95 08:01:00 Test Item Value Reference Range Interpretation Comments Anisocyte (test code = 1+ *ABN*(01/14/22 Anisocyte) 3:01 AM) [facility] WorthQsvfkwrGUDUCXXWNA9227-10-46 08:01:00 Test Item Value Reference Range Interpretation Comments Macrocyte (test code = 1+ *ABN*(01/14/22 Macrocyte) 3:01 AM) [facility] WorthOqspjepFXHWFPFVEU9209-50-96 08:01:00 Test Item Value Reference Range Interpretation Comments Microcyte (test code = 1+ *ABN*(01/14/22 Microcyte) 3:01 AM) [facility] WorthUtummgwUNQUMVUSVD3335-55-19 08:01:00 Test Item Value Reference Range Interpretation Comments Polychrom (test code = Moderate *ABN*(01/14/22 Polychrom) 3:01 AM) [facility] WorthNrlxvqqNWWGAEIWNF6234-26-57 08:01:00 Test Item Value Reference Range Interpretation Comments Target Cell (test code Moderate *ABN*(01/14/22 = Target Cell) 3:01 AM) [facility] WorthQsrpxguWAMEFTNMHR8930-90-81 08:01:00 Test Item Value Reference Range Interpretation Comments Schistocyte (test code = 1-3 per HPF Schistocyte) (01/14/22 3:01 AM) [facility] WorthUzotmcmFDVRDLCABA0645-26-12 08:01:00 Test Item Value Reference Range Interpretation Comments Spherocyte (test code = Occasional Spherocyte) *ABN*(01/14/22 3:01 AM) [facility] WorthGsqslreEOGZZCGPGB8678-01-60 08:01:00 Test Item Value Reference Range Interpretation Comments Sickle Cell (test code Moderate *ABN*(01/14/22 = Sickle Cell) 3:01 AM) [facility] WorthAbcskwdFBEUPCWJVT2152-82-27 08:01:00 Test Item Value Reference Range Interpretation Comments Segs (test code = Segs) 77.1 45.0-75.0 [facility] WorthOibaracKSMNRHGEEQ8893-01-70 08:01:00 Test Item Value Reference Range Interpretation Comments Lymphocytes (test code = Lymphocytes) 9.8 20.0-40.0 [facility] WorthHqiaqnhGTTQDPOQMJ2985-97-17 08:01:00 Test Item Value Reference Range Interpretation Comments Monocytes (test code = Monocytes) 11.2 2.0-12.0 [facility] WorthNdndsmlKMKPLKIIIO4781-91-30 08:01:00 Test Item Value Reference Range Interpretation Comments Eosinophils (test code = 1.1 See_Comment [A utomated message] The Eosinophils) system which ge nerated this result tra nsmitted reference range : <=4.0. The reference r duy was not used to int erpret this result as normal/abnormal . [facility] WorthDdbaylyCHTKJWVONC8134-40-16 08:01:00 Test Item Value Reference Range Interpretation Comments Basophils (test code = 0.8 See_Comment [Aut omated message] The Basophils) system which ge nerated this result tra nsmitted reference range : <=1.0. The reference r duy was not used to int erpret this result as normal/abnormal . [facility] WorthLhufbdsFCNPEKJSUJ8181-59-05 08:01:00 Test Item Value Reference Range Interpretation Comments Neutrophils # (test code = Neutrophils 6.0 1.5-8.1 #) [facility]CbqwzohOMSTBHXPCZ6248-35-88 08:01:00 Test Item Value Reference Range Interpretation Comments Lymphocytes # (test code = Lymphocytes 0.8 1.0-5.5 #) [facility] WorthMripnaqYKNPXZAQAD0898-07-22 08:01:00 Test Item Value Reference Range Interpretation Comments Monocytes # (test code 0.9 See_Comment [Aut omated message] The = Monocytes #) system which generated this result tra nsmitted reference range : <=0.8. The reference r duy was not used to int erpret this result as normal/abnormal . [facility] WorthCuccejgQOTPJBFQOH4836-67-11 08:01:00 Test Item Value Reference Range Interpretation Comments Basophils # (test code 0.1 See_Comment [Aut omated message] The = Basophils #) system which generated this result tra nsmitted reference range : <=0.2. The reference r duy was not used to int erpret this result as normal/abnormal . [facility]BA[facility] - [id number] 16:49:00 Test Item Value Reference Range Interpretation Comments MRSA by PCR (test Negative (01/13/22 11:49 code = MRSA by PCR) AM) [facility] CenterMOLECULAR [id number] 16:49:00 Test Item Value Reference Range Interpretation Comments Source Respiratory Nasophrngl Swb Panel PCR (test code = *NA*(01/13/22 11:49 AM) Source Respiratory Panel PCR) [facility] [id number] 16:49:00 Test Item Value Reference Range Interpretation Comments Influenza A PCR (test Negative *NA*(01/13/22 code = Influenza A PCR) 11:49 AM) [facility] [id number] 16:49:00 Test Item Value Reference Range Interpretation Comments Influenza B PCR (test Negative *NA*(01/13/22 code = Influenza B PCR) 11:49 AM) [facility] [id number] 16:49:00 Test Item Value Reference Range Interpretation Comments RSV PCR (test code = Negative *NA*(01/13/22 RSV PCR) 11:49 AM) [facility] [id number] 16:49:00 Test Item Value Reference Range Interpretation Comments MRSA by PCR (test Negative (01/13/22 11:49 code = MRSA by PCR) AM) [facility]ervilleannWVLECULAR [id number] 16:49:00 Test Item Value Reference Range Interpretation Comments Source Respiratory Nasophrngl Swb Panel PCR (test code = *NA*(01/13/22 11:49 AM) Source Respiratory Panel PCR) [facility] [id number] 16:49:00 Test Item Value Reference Range Interpretation Comments Influenza A PCR (test Negative *NA*(01/13/22 code = Influenza A PCR) 11:49 AM) [facility] [id number] 16:49:00 Test Item Value Reference Range Interpretation Comments Influenza B PCR (test Negative *NA*(01/13/22 code = Influenza B PCR) 11:49 AM) [facility] [id number] 16:49:00 Test Item Value Reference Range Interpretation Comments RSV PCR (test code = Negative *NA*(01/13/22 RSV PCR) 11:49 AM) [facility]BA[facility] - [id number] 16:49:00 Test Item Value Reference Range Interpretation Comments MRSA by PCR (test Negative (01/13/22 11:49 code = MRSA by PCR) AM) [facility] [id number] 16:49:00 Test Item Value Reference Range Interpretation Comments Source Respiratory Nasophrngl Swb Panel PCR (test code = *NA*(01/13/22 11:49 AM) Source Respiratory Panel PCR) [facility] [id number] 16:49:00 Test Item Value Reference Range Interpretation Comments Influenza A PCR (test Negative *NA*(01/13/22 code = Influenza A PCR) 11:49 AM) [facility] [id number] 16:49:00 Test Item Value Reference Range Interpretation Comments Influenza B PCR (test Negative *NA*(01/13/22 code = Influenza B PCR) 11:49 AM) [facility] [id number] 16:49:00 Test Item Value Reference Range Interpretation Comments RSV PCR (test code = Negative *NA*(01/13/22 RSV PCR) 11:49 AM) [address]06-15 07:59:00 Test Item Value Reference Range Interpretation Comments Basophils (test code = 1.0 See_Comment [Aut omated message] The Basophils) system which ge nerated this result tra nsmitted reference range : <=1.0. The reference r duy was not used to int erpret this result as normal/abnormal . [place] 831202-06-15 07:59:00 Test Item Value Reference Range Interpretation Comments Eosinophils # (test code 0.1 See_Comment [A utomated message] The = Eosinophils #) system [facility] [employer] generated this result tra nsmitted reference range : <=0.5. The reference r duy was not used to int erpret this result as normal/abnormal . [place] [address]-06-15 07:59:00 Test Item Value Reference Range Interpretation Comments Basophils # (test code 0.1 See_Comment [Aut omated message] The = Basophils #) system which generated this result tra nsmitted reference range : <=0.2. The reference r duy was not used to int erpret this result as normal/abnormal . [place] [address]-06-15 07:59:00 Test Item Value Reference Range Interpretation Comments Basophils (test code = 1.0 See_Comment [Aut omated message] The Basophils) system which ge nerated this result tra nsmitted reference range : <=1.0. The reference r duy was not used to int erpret this result as normal/abnormal . [place] [address]-06-15 07:59:00 Test Item Value Reference Range Interpretation Comments Eosinophils # (test code 0.1 See_Comment [A utomated message] The = Eosinophils #) system [facility] [employer] generated this result tra nsmitted reference range : <=0.5. The reference r duy was not used to int erpret this result as normal/abnormal . [place] [address]-06-15 07:59:00 Test Item Value Reference Range Interpretation Comments Basophils # (test code 0.1 See_Comment [Aut omated message] The = Basophils #) system which generated this result tra nsmitted reference range : <=0.2. The reference r duy was not used to int erpret this result as normal/abnormal . [place] [address]-06-15 07:59:00 Test Item Value Reference Range Interpretation Comments Basophils (test code = 1.0 See_Comment [Aut omated message] The Basophils) system which ge nerated this result tra nsmitted reference range : <=1.0. The reference r duy was not used to int erpret this result as normal/abnormal . [place] 831202-06-15 07:59:00 Test Item Value Reference Range Interpretation Comments Eosinophils # (test code 0.1 See_Comment [A utomated message] The = Eosinophils #) system [facility] h generated this result tra nsmitted reference range : <=0.5. The reference r duy was not used to int erpret this result as normal/abnormal . [place] [address]-06-15 07:59:00 Test Item Value Reference Range Interpretation Comments Basophils # (test code 0.1 See_Comment [Aut omated message] The = Basophils #) system which generated this result tra nsmitted reference range : <=0.2. The reference r duy was not used to int erpret this result as normal/abnormal . [facility]Next[facility] [id number] 19:04:00 Test Item Value Reference Range Interpretation Comments Procalcitonin Lvl (test 0.32 See_Comment [Au tomated message] code = Procalcitonin Lvl) Th e system which generated this result transmitted ref erence range: <=0.10. The reference range was not used to interpr et this result as normal/abnormal . [facility]Next[facility] [id number] 19:04:00 Test Item Value Reference Range Interpretation Comments Lactic Acid Lvl (test code = Lactic 1.7 0.5-2.2 Acid Lvl) [facility]Next[facility] [id number] 19:04:00 Test Item Value Reference Range Interpretation Comments Procalcitonin Lvl (test 0.32 See_Comment [Au tomated message] code = Procalcitonin Lvl) Th e system which generated this result transmitted ref erence range: <=0.10. The reference range was not used to interpr et this result as normal/abnormal . [facility]Next[facility] [id number] 19:04:00 Test Item Value Reference Range Interpretation Comments Lactic Acid Lvl (test code = Lactic 1.7 0.5-2.2 Acid Lvl) [facility] Myla [id number] 19:04:00 Test Item Value Reference Range Interpretation Comments Procalcitonin Lvl (test 0.32 See_Comment [Au tomated message] code = Procalcitonin Lvl) Th e system which generated this result transmitted ref erence range: <=0.10. The reference range was not used to interpr et this result as normal/abnormal . [facility] [id number] 19:04:00 Test Item Value Reference Range Interpretation Comments Lactic Acid Lvl (test code = Lactic 1.7 0.5-2.2 Acid Lvl) [facility] [id number] 08:00:00 Test Item Value Reference Range Interpretation Comments Total Protein (test code = Total 7.0 6.4-8.4 Protein) [facility] [id number] 08:00:00 Test Item Value Reference Range Interpretation Comments Albumin Lvl (test code = Albumin Lvl) 3.6 3.5-5.0 [facility] [id number] 08:00:00 Test Item Value Reference Range Interpretation Comments ALT (test code = ALT) 42 See_Comment [Auto mated message] The system which ge nerated this result transmit aisha reference range : <=65. The reference range was not used to interpr et this result as erin l/abnormal. [facility] Myla [id number] 08:00:00 Test Item Value Reference Range Interpretation Comments AST (test code = AST) 91 See_Comment [Auto mated message] The system which ge nerated this result transmit aisha reference range : <=37. The reference range was not used to interpr et this result as erin l/abnormal. [facility] Myla [id number] 08:00:00 Test Item Value Reference Range Interpretation Comments Alk Phos (test code = Alk Phos) 132 39-136 [facility] [id number] 08:00:00 Test Item Value Reference Range Interpretation Comments Bili Total (test code = Bili Total) 5.2 0.2-1.3 [facility] [id number] 08:00:00 Test Item Value Reference Range Interpretation Comments B/C Ratio (test code = B/C Ratio) 12 1 6-25 [facility]2022-06-14 08:00:00 Test Item Value Reference Range Interpretation Comments Globulin (test code = Globulin) 3.4 2.7-4.2 [place] 210522-06-14 08:00:00 Test Item Value Reference Range Interpretation Comments A/G Ratio (test code = A/G Ratio) 1.1 1 0.7-1.6 [facility] [id number] 08:00:00 Test Item Value Reference Range Interpretation Comments Bands (test code = 1.0 See_Comment [Automat ed message] The Bands) system which ge nerated this result transmit aisha reference range : <=11.0. The reference r duy was not used to interpr et this result as erin l/abnormal. [facility] [id number] 08:00:00 Test Item Value Reference Range Interpretation Comments Atypical Lymphs (test code = Atypical 0.0 Lymphs) [facility] WorthGyeyfpcKEQMBFGLPQ4586-56-13 08:00:00 Test Item Value Reference Range Interpretation Comments NRBC (test code = NRBC) 15 [facility] WorthBtkbzmwEDYLKEAYSD4763-78-43 08:00:00 Test Item Value Reference Range Interpretation Comments RBC Morph (test code = See Note (01/12/22 3:00 RBC Morph) AM) [facility] WorthPxlbxixRJDTFFZHAE4259-02-27 08:00:00 Test Item Value Reference Range Interpretation Comments Plt Morph (test code = Normal (01/12/22 3:00 Plt Morph) AM) [place] 831202-06-14 08:00:00 Test Item Value Reference Range Interpretation Comments Tot Cell Ct (test code = Tot Cell Ct) 100 1 [facility] [id number] 08:00:00 Test Item Value Reference Range Interpretation Comments Baso Stipplin (test Moderate *ABN*(01/12/22 code = Baso Stipplin) 3:00 AM) [facility]2022-06-14 08:00:00 Test Item Value Reference Range Interpretation Comments Total Protein (test code = Total 7.0 6.4-8.4 Protein) [facility]2022-06-14 08:00:00 Test Item Value Reference Range Interpretation Comments Albumin Lvl (test code = Albumin Lvl) 3.6 3.5-5.0 [place] 210522-06-14 08:00:00 Test Item Value Reference Range Interpretation Comments ALT (test code = ALT) 42 See_Comment [Auto mated message] The system which ge nerated this result transmit aisha reference range : <=65. The reference range was not used to interpr et this result as erin l/abnormal. [place] 210522-06-14 08:00:00 Test Item Value Reference Range Interpretation Comments AST (test code = AST) 91 See_Comment [Auto mated message] The system which ge nerated this result transmit aisha reference range : <=37. The reference range was not used to interpr et this result as erin l/abnormal. [place] [address]-06-14 08:00:00 Test Item Value Reference Range Interpretation Comments Alk Phos (test code = Alk Phos) 132 39-136 [place] 210522-06-14 08:00:00 Test Item Value Reference Range Interpretation Comments Bili Total (test code = Bili Total) 5.2 0.2-1.3 [place] [address]-06-14 08:00:00 Test Item Value Reference Range Interpretation Comments B/C Ratio (test code = B/C Ratio) 12 1 6-25 [place] [address]-06-14 08:00:00 Test Item Value Reference Range Interpretation Comments Globulin (test code = Globulin) 3.4 2.7-4.2 [place] [address]-06-14 08:00:00 Test Item Value Reference Range Interpretation Comments A/G Ratio (test code = A/G Ratio) 1.1 1 0.7-1.6 [place] [address]-06-14 08:00:00 Test Item Value Reference Range Interpretation Comments Bands (test code = 1.0 See_Comment [Automat ed message] The Bands) system which ge nerated this result transmit aisha reference range : <=11.0. The reference r duy was not used to interpr et this result as erin l/abnormal. [place] 831202-06-14 08:00:00 Test Item Value Reference Range Interpretation Comments Atypical Lymphs (test code = Atypical 0.0 Lymphs) [place] 831202-06-14 08:00:00 Test Item Value Reference Range Interpretation Comments NRBC (test code = NRBC) 15 [place] 831202-06-14 08:00:00 Test Item Value Reference Range Interpretation Comments RBC Morph (test code = See Note (01/12/22 3:00 RBC Morph) AM) [place] 831202-06-14 08:00:00 Test Item Value Reference Range Interpretation Comments Plt Morph (test code = Normal (01/12/22 3:00 Plt Morph) AM) [place] 831202-06-14 08:00:00 Test Item Value Reference Range Interpretation Comments Tot Cell Ct (test code = Tot Cell Ct) 100 1 [place] 831202-06-14 08:00:00 Test Item Value Reference Range Interpretation Comments Baso Stipplin (test Moderate *ABN*(01/12/22 code = Baso Stipplin) 3:00 AM) [place] 210522-06-14 08:00:00 Test Item Value Reference Range Interpretation Comments Total Protein (test code = Total 7.0 6.4-8.4 Protein) [place] 210522-06-14 08:00:00 Test Item Value Reference Range Interpretation Comments Albumin Lvl (test code = Albumin Lvl) 3.6 3.5-5.0 [facility]2022-06-14 08:00:00 Test Item Value Reference Range Interpretation Comments ALT (test code = ALT) 42 See_Comment [Auto mated message] The system which ge nerated this result transmit aisha reference range : <=65. The reference range was not used to interpr et this result as erin l/abnormal. [facility] [id number] 08:00:00 Test Item Value Reference Range Interpretation Comments AST (test code = AST) 91 See_Comment [Auto mated message] The system which ge nerated this result transmit aisha reference range : <=37. The reference range was not used to interpr et this result as erin l/abnormal. [facility] [id number] 08:00:00 Test Item Value Reference Range Interpretation Comments Alk Phos (test code = Alk Phos) 132 39-136 [facility] [id number] 08:00:00 Test Item Value Reference Range Interpretation Comments Bili Total (test code = Bili Total) 5.2 0.2-1.3 [facility]2022-06-14 08:00:00 Test Item Value Reference Range Interpretation Comments B/C Ratio (test code = B/C Ratio) 12 1 6-25 [facility]2022-06-14 08:00:00 Test Item Value Reference Range Interpretation Comments Globulin (test code = Globulin) 3.4 2.7-4.2 [facility]2022-06-14 08:00:00 Test Item Value Reference Range Interpretation Comments A/G Ratio (test code = A/G Ratio) 1.1 1 0.7-1.6 [facility] [id number] 08:00:00 Test Item Value Reference Range Interpretation Comments Bands (test code = 1.0 See_Comment [Automat ed message] The Bands) system which ge nerated this result transmit aisha reference range : <=11.0. The reference r duy was not used to interpr et this result as erin l/abnormal. [facility] WorthAppcaxzTGXBKIAQFK9674-12-73 08:00:00 Test Item Value Reference Range Interpretation Comments Atypical Lymphs (test code = Atypical 0.0 Lymphs) [facility] WorthVepvniuRONFTHUHWI5754-00-62 08:00:00 Test Item Value Reference Range Interpretation Comments NRBC (test code = NRBC) 15 [facility] WorthDojahfwUUVHORRMSX1476-24-26 08:00:00 Test Item Value Reference Range Interpretation Comments RBC Morph (test code = See Note (01/12/22 3:00 RBC Morph) AM) [facility] WorthKxnzqhcRUYOOQURWI6419-73-82 08:00:00 Test Item Value Reference Range Interpretation Comments Plt Morph (test code = Normal (01/12/22 3:00 Plt Morph) AM) [facility] WorthHwcgcpaXVQWRPRSBS0096-01-38 08:00:00 Test Item Value Reference Range Interpretation Comments Tot Cell Ct (test code = Tot Cell Ct) 100 1 [facility] WorthUwewzahCNPXKKNHCG7392-36-69 08:00:00 Test Item Value Reference Range Interpretation Comments Baso Stipplin (test Moderate *ABN*(01/12/22 code = Baso Stipplin) 3:00 AM) [facility]HlupdciLVBFQIQMIX6950-53-81 09:54:00 Test Item Value Reference Range Interpretation Comments Coronavirus (COVID-19) Not Detected (01/11/22 ALESSIO (test code = 4:54 AM) Coronavirus (COVID-19) ALESSIO) [facility]inteXstfrdfGMWYBBJNAG8668-53-41 09:54:00 Test Item Value Reference Range Interpretation Comments Coronavirus (COVID-19) Not Detected (01/11/22 ALESSIO (test code = 4:54 AM) Coronavirus (COVID-19) ALESSIO) [facility] CenterKsckeimFHFOFLPZDN4984-99-99 09:54:00 Test Item Value Reference Range Interpretation Comments Coronavirus (COVID-19) Not Detected (01/11/22 ALESSIO (test code = 4:54 AM) Coronavirus (COVID-19) ALESSIO) [facility] [id number] 07:45:00 Test Item Value Reference Range Interpretation Comments HS Troponin I (test code = HS Troponin 5 I) [facility] CenterCare[facility] Communications [id number] 07:45:00 Test Item Value Reference Range Interpretation Comments B/C Ratio (test code = B/C Ratio) 11 1 6-25 [facility]2022-06-13 07:45:00 Test Item Value Reference Range Interpretation Comments Total Protein (test code = Total 7.9 6.4-8.4 Protein) [facility]2022-06-13 07:45:00 Test Item Value Reference Range Interpretation Comments Albumin Lvl (test code = Albumin Lvl) 4.3 3.5-5.0 [facility]2022-06-13 07:45:00 Test Item Value Reference Range Interpretation Comments Globulin (test code = Globulin) 3.6 2.7-4.2 [facility]2022-06-13 07:45:00 Test Item Value Reference Range Interpretation Comments A/G Ratio (test code = A/G Ratio) 1.2 1 0.7-1.6 [place] 210522-06-13 07:45:00 Test Item Value Reference Range Interpretation Comments ALT (test code = ALT) 41 See_Comment [Auto mated message] The system which ge nerated this result transmit aisha reference range : <=65. The reference range was not used to interpr et this result as erin l/abnormal. [facility]2022-06-13 07:45:00 Test Item Value Reference Range Interpretation Comments AST (test code = AST) 99 See_Comment [Auto mated message] The system which ge nerated this result transmit aisha reference range : <=37. The reference range was not used to interpr et this result as erin l/abnormal. [facility] [id number] 07:45:00 Test Item Value Reference Range Interpretation Comments Alk Phos (test code = Alk Phos) 114 39-136 [facility] CenterPxrukjtOFDXVSFALX6120-22-63 07:45:00 Test Item Value Reference Range Interpretation Comments Bands (test code = 1.0 See_Comment [Automat ed message] The Bands) system which ge nerated this result transmit aisha reference range : <=11.0. The reference r duy was not used to interpr et this result as erin l/abnormal. [facility] WorthHfptawwRZHXCRAKDC6005-99-64 07:45:00 Test Item Value Reference Range Interpretation Comments Atypical Lymphs (test code = Atypical 0.0 Lymphs) [facility] CenterNxfrshpCELOSNTGZO2264-31-35 07:45:00 Test Item Value Reference Range Interpretation Comments Retic Perf (test code = Yes (01/11/22 2:45 AM) Retic Perf) [facility]TfjihwzHQDMFKHBIB4702-72-04 07:45:00 Test Item Value Reference Range Interpretation Comments Retic Auto (test code = Retic Auto) 10.2 0.5-1.5 [facility] CenterCARDIAC [id number] 07:45:00 Test Item Value Reference Range Interpretation Comments HS Troponin I (test code = HS Troponin 5 I) [facility] CenterCare[facility] Communications [id number] 07:45:00 Test Item Value Reference Range Interpretation Comments B/C Ratio (test code = B/C Ratio) 11 1 6-25 [facility] [id number] 07:45:00 Test Item Value Reference Range Interpretation Comments Total Protein (test code = Total 7.9 6.4-8.4 Protein) [facility] [id number] 07:45:00 Test Item Value Reference Range Interpretation Comments Albumin Lvl (test code = Albumin Lvl) 4.3 3.5-5.0 [facility] [id number] 07:45:00 Test Item Value Reference Range Interpretation Comments Globulin (test code = Globulin) 3.6 2.7-4.2 [place] 210522-06-13 07:45:00 Test Item Value Reference Range Interpretation Comments A/G Ratio (test code = A/G Ratio) 1.2 1 0.7-1.6 [place] 210522-06-13 07:45:00 Test Item Value Reference Range Interpretation Comments ALT (test code = ALT) 41 See_Comment [Auto mated message] The system which ge nerated this result transmit aisha reference range : <=65. The reference range was not used to interpr et this result as erin l/abnormal. [facility] [id number] 07:45:00 Test Item Value Reference Range Interpretation Comments AST (test code = AST) 99 See_Comment [Auto mated message] The system which ge nerated this result transmit aisha reference range : <=37. The reference range was not used to interpr et this result as erin l/abnormal. [facility]2022-06-13 07:45:00 Test Item Value Reference Range Interpretation Comments Alk Phos (test code = Alk Phos) 114 39-136 [facility] WorthCqbgdgvTWRPYKDKFI1851-32-00 07:45:00 Test Item Value Reference Range Interpretation Comments Bands (test code = 1.0 See_Comment [Automat ed message] The Bands) system which ge nerated this result transmit aisha reference range : <=11.0. The reference r duy was not used to interpr et this result as erin l/abnormal. [facility] WorthAdpgnshHUTCHWOEDX6153-19-82 07:45:00 Test Item Value Reference Range Interpretation Comments Atypical Lymphs (test code = Atypical 0.0 Lymphs) [facility] WorthSmeftoyCUMKTPEBKC3252-68-83 07:45:00 Test Item Value Reference Range Interpretation Comments Retic Perf (test code = Yes (01/11/22 2:45 AM) Retic Perf) [place] 831202-06-13 07:45:00 Test Item Value Reference Range Interpretation Comments Retic Auto (test code = Retic Auto) 10.2 0.5-1.5 [facility] CenterCARDIAC [id number] 07:45:00 Test Item Value Reference Range Interpretation Comments HS Troponin I (test code = HS Troponin 5 I) [facility] [id number] 07:45:00 Test Item Value Reference Range Interpretation Comments B/C Ratio (test code = B/C Ratio) 11 1 6-[address]06-13 07:45:00 Test Item Value Reference Range Interpretation Comments Total Protein (test code = Total 7.9 6.4-8.4 Protein) [address]06-13 07:45:00 Test Item Value Reference Range Interpretation Comments Albumin Lvl (test code = Albumin Lvl) 4.3 3.5-5.[address]06-13 07:45:00 Test Item Value Reference Range Interpretation Comments Globulin (test code = Globulin) 3.6 2.7-4.[address]06-13 07:45:00 Test Item Value Reference Range Interpretation Comments A/G Ratio (test code = A/G Ratio) 1.2 1 0.7-1.[address]06-13 07:45:00 Test Item Value Reference Range Interpretation Comments ALT (test code = ALT) 41 See_Comment [Auto mated message] The system which ge nerated this result transmit aisha reference range : <=65. The reference range was not used to interpr et this result as erin l/abnormal. [address]06-13 07:45:00 Test Item Value Reference Range Interpretation Comments AST (test code = AST) 99 See_Comment [Auto mated message] The system which ge nerated this result transmit aisha reference range : <=37. The reference range was not used to interpr et this result as erin l/abnormal. [place] [address]-06-13 07:45:00 Test Item Value Reference Range Interpretation Comments Alk Phos (test code = Alk Phos) 114 39-136 [place] [address]-06-13 07:45:00 Test Item Value Reference Range Interpretation Comments Bands (test code = 1.0 See_Comment [Automat ed message] The Bands) system which ge nerated this result transmit aisha reference range : <=11.0. The reference r duy was not used to interpr et this result as erin l/abnormal. [place] [address]-06-13 07:45:00 Test Item Value Reference Range Interpretation Comments Atypical Lymphs (test code = Atypical 0.0 Lymphs) [place] 831202-06-13 07:45:00 Test Item Value Reference Range Interpretation Comments Retic Perf (test code = Yes (01/11/22 2:45 AM) Retic Perf) [place] 831202-06-13 07:45:00 Test Item Value Reference Range Interpretation Comments Retic Auto (test code = Retic Auto) 10.2 0.5-1.5 [place] 210522-06-12 13:20:00 Test Item Value Reference Range Interpretation Comments Glucose Lvl (test code = Glucose Lvl) 116 70-99 [place] 210522-06-12 13:20:00 Test Item Value Reference Range Interpretation Comments BUN (test code = BUN) 8 7-22 [place] 210522-06-12 13:20:00 Test Item Value Reference Range Interpretation Comments Creatinine Lvl (test code = Creatinine 0.65 0.50-1.40 Lvl) [place] 210522-06-12 13:20:00 Test Item Value Reference Range Interpretation Comments Sodium Lvl (test code = Sodium Lvl) 138 135-145 [place] 210522-06-12 13:20:00 Test Item Value Reference Range Interpretation Comments Potassium Lvl (test code = Potassium 3.9 3.5-5.1 Lvl) [place] 210522-06-12 13:20:00 Test Item Value Reference Range Interpretation Comments Chloride Lvl (test code = Chloride Lvl) 105 95-109 [place] 210522-06-12 13:20:00 Test Item Value Reference Range Interpretation Comments CO2 (test code = CO2) 27 24-32 [place] 210522-06-12 13:20:00 Test Item Value Reference Range Interpretation Comments Calcium Lvl (test code = Calcium Lvl) 8.8 8.5-10.5 [place] 210522-06-12 13:20:00 Test Item Value Reference Range Interpretation Comments Total Protein (test code = Total 7.6 6.4-8.4 Protein) [place] 210522-06-12 13:20:00 Test Item Value Reference Range Interpretation Comments Albumin Lvl (test code = Albumin Lvl) 4.2 3.5-5.0 [facility]2022-06-12 13:20:00 Test Item Value Reference Range Interpretation Comments ALT (test code = ALT) 26 See_Comment [Auto mated message] The system which ge nerated this result transmit aisha reference range : <=65. The reference range was not used to interpr et this result as erin l/abnormal. [facility]Next[facility] [id number] 13:20:00 Test Item Value Reference Range Interpretation Comments AST (test code = AST) 38 See_Comment [Auto mated message] The system which ge nerated this result transmit aisha reference range : <=37. The reference range was not used to interpr et this result as erin l/abnormal. [facility] Myla [id number] 13:20:00 Test Item Value Reference Range Interpretation Comments Alk Phos (test code = Alk Phos) 108 39-136 [facility] [id number] 13:20:00 Test Item Value Reference Range Interpretation Comments Bili Total (test code = Bili Total) 3.8 0.2-1.3 [facility] [id number] 13:20:00 Test Item Value Reference Range Interpretation Comments AGAP (test code = AGAP) 9.9 10.0-20.0 [facility] Myla [id number] 13:20:00 Test Item Value Reference Range Interpretation Comments B/C Ratio (test code = B/C Ratio) 12 1 6-25 [facility] [id number] 13:20:00 Test Item Value Reference Range Interpretation Comments Globulin (test code = Globulin) 3.4 2.7-4.2 [facility] [id number] 13:20:00 Test Item Value Reference Range Interpretation Comments A/G Ratio (test code = A/G Ratio) 1.2 1 0.7-1.6 [facility] Myla [id number] 13:20:00 Test Item Value Reference Range Interpretation Comments eGFR (test code = eGFR) 138 [facility] CenterSznihnfXMDCHVQOYB1734-82-93 13:20:00 Test Item Value Reference Range Interpretation Comments WBC (test code = WBC) 8.1 3.7-10.4 [facility]ervilleQkebaanEYVBYGSVXR2854-27-10 13:20:00 Test Item Value Reference Range Interpretation Comments RBC (test code = RBC) 2.79 4.70-6.10 [place] 831202-06-12 13:20:00 Test Item Value Reference Range Interpretation Comments Hgb (test code = Hgb) 9.6 14.0-18.0 [place] 831202-06-12 13:20:00 Test Item Value Reference Range Interpretation Comments Hct (test code = Hct) 25.9 42.0-54.0 [place] 831202-06-12 13:20:00 Test Item Value Reference Range Interpretation Comments MCV (test code = MCV) 92.9 80.0-94.0 [place] [address]-06-12 13:20:00 Test Item Value Reference Range Interpretation Comments MCH (test code = MCH) 34.2 pg 27.0-31.0 [facility] WorthEfuupsbLNFVISOVPJ5898-96-69 13:20:00 Test Item Value Reference Range Interpretation Comments MCHC (test code = MCHC) 36.8 32.0-36.0 [facility] WorthLhpzygqCFPDYYSKAP4075-33-30 13:20:00 Test Item Value Reference Range Interpretation Comments RDW (test code = RDW) 23.7 11.5-14.5 [place] [address]-06-12 13:20:00 Test Item Value Reference Range Interpretation Comments Platelet (test code = Platelet) 331 133-450 [facility] WorthFawemvzGDMPKYSMJO8739-43-01 13:20:00 Test Item Value Reference Range Interpretation Comments MPV (test code = MPV) 7.2 7.4-10.4 [place] 831202-06-12 13:20:00 Test Item Value Reference Range Interpretation Comments Retic Perf (test code = Yes (01/10/22 8:20 AM) Retic Perf) [facility] WorthZwlytabPDXXTLNTFL1501-66-46 13:20:00 Test Item Value Reference Range Interpretation Comments Retic Auto (test code = Retic Auto) 10.0 0.5-1.5 [place] 831202-06-12 13:20:00 Test Item Value Reference Range Interpretation Comments RBC Morph (test code = See Note (01/10/22 8:20 RBC Morph) AM) [facility] WorthVdxacxlGMNZLYFDYJ4494-91-22 13:20:00 Test Item Value Reference Range Interpretation Comments Plt Morph (test code = Normal (01/10/22 8:20 Plt Morph) AM) [facility] WorthZoltsezGZSSYODVZW8925-04-83 13:20:00 Test Item Value Reference Range Interpretation Comments Segs (test code = Segs) 61.0 45.0-75.0 [place] 831202-06-12 13:20:00 Test Item Value Reference Range Interpretation Comments Bands (test code = 2.0 See_Comment [Automat ed message] The Bands) system which ge nerated this result transmit aisha reference range : <=11.0. The reference r duy was not used to interpr et this result as erin l/abnormal. [facility] WorthBpyooyeQEYCEXNCOY3211-36-51 13:20:00 Test Item Value Reference Range Interpretation Comments Lymphocytes (test code = Lymphocytes) 25.0 20.0-40.0 [place] 831202-06-12 13:20:00 Test Item Value Reference Range Interpretation Comments Monocytes (test code = Monocytes) 10.0 2.0-12.0 [place] 831202-06-12 13:20:00 Test Item Value Reference Range Interpretation Comments Eosinophils (test code = 2.0 See_Comment [A utomated message] The Eosinophils) system which ge nerated this result tra nsmitted reference range : <=4.0. The reference r duy was not used to int erpret this result as normal/abnormal . [facility] WorthYmaprxbUJVJVVJRKV5075-49-44 13:20:00 Test Item Value Reference Range Interpretation Comments Neutrophils # (test code = Neutrophils 5.1 1.5-8.1 #) [place] 831202-06-12 13:20:00 Test Item Value Reference Range Interpretation Comments Lymphocytes # (test code = Lymphocytes 2.0 1.0-5.5 #) [place] 831202-06-12 13:20:00 Test Item Value Reference Range Interpretation Comments Monocytes # (test code 0.8 See_Comment [Aut omated message] The = Monocytes #) system which generated this result tra nsmitted reference range : <=0.8. The reference r duy was not used to int erpret this result as normal/abnormal . [place] 831202-06-12 13:20:00 Test Item Value Reference Range Interpretation Comments Eosinophils # (test code 0.2 See_Comment [A utomated message] The = Eosinophils #) system whic h generated this result tra nsmitted reference range : <=0.5. The reference r duy was not used to int erpret this result as normal/abnormal . [facility] WorthNwnehgvSCVMZIWLJX4453-42-63 13:20:00 Test Item Value Reference Range Interpretation Comments NRBC (test code = NRBC) 6 [facility] WorthMlfulbfKNDYFQSTXF6716-35-78 13:20:00 Test Item Value Reference Range Interpretation Comments Anisocyte (test code = 1+ *ABN*(01/10/22 Anisocyte) 8:20 AM) [facility] WorthZutuqnpRKZHICWIBR1116-91-14 13:20:00 Test Item Value Reference Range Interpretation Comments Macrocyte (test code = 1+ *ABN*(01/10/22 Macrocyte) 8:20 AM) [facility] WorthLqauliiLMFEUVDJPU9332-06-42 13:20:00 Test Item Value Reference Range Interpretation Comments Microcyte (test code = 1+ *ABN*(01/10/22 Microcyte) 8:20 AM) [place] 831202-06-12 13:20:00 Test Item Value Reference Range Interpretation Comments Polychrom (test code = Moderate *ABN*(01/10/22 Polychrom) 8:20 AM) [facility] WorthTdwzvdmOHCDKQTEXG5670-67-72 13:20:00 Test Item Value Reference Range Interpretation Comments Target Cell (test code Moderate *ABN*(01/10/22 = Target Cell) 8:20 AM) [facility] WorthKwbiczzOTPMLCHRRA3696-45-56 13:20:00 Test Item Value Reference Range Interpretation Comments Tear Cell (test code Moderate *ABN*(01/10/22 = Tear Cell) 8:20 AM) [facility] WorthJurpawhEESACSCQTM5514-51-28 13:20:00 Test Item Value Reference Range Interpretation Comments Sickle Cell (test code Slight *ABN*(01/10/22 = Sickle Cell) 8:20 AM) [facility]2022-06-12 13:20:00 Test Item Value Reference Range Interpretation Comments Glucose Lvl (test code = Glucose Lvl) 116 70-99 [facility]2022-06-12 13:20:00 Test Item Value Reference Range Interpretation Comments BUN (test code = BUN) 8 7-22 [place] 210522-06-12 13:20:00 Test Item Value Reference Range Interpretation Comments Creatinine Lvl (test code = Creatinine 0.65 0.50-1.40 Lvl) [place] 210522-06-12 13:20:00 Test Item Value Reference Range Interpretation Comments Sodium Lvl (test code = Sodium Lvl) 138 135-145 [place] 210522-06-12 13:20:00 Test Item Value Reference Range Interpretation Comments Potassium Lvl (test code = Potassium 3.9 3.5-5.1 Lvl) [place] 210522-06-12 13:20:00 Test Item Value Reference Range Interpretation Comments Chloride Lvl (test code = Chloride Lvl) 105 95-109 [place] 210522-06-12 13:20:00 Test Item Value Reference Range Interpretation Comments CO2 (test code = CO2) 27 24-32 [place] 210522-06-12 13:20:00 Test Item Value Reference Range Interpretation Comments Calcium Lvl (test code = Calcium Lvl) 8.8 8.5-10.5 [place] 210522-06-12 13:20:00 Test Item Value Reference Range Interpretation Comments Total Protein (test code = Total 7.6 6.4-8.4 Protein) [place] 210522-06-12 13:20:00 Test Item Value Reference Range Interpretation Comments Albumin Lvl (test code = Albumin Lvl) 4.2 3.5-5.0 [place] 210522-06-12 13:20:00 Test Item Value Reference Range Interpretation Comments ALT (test code = ALT) 26 See_Comment [Auto mated message] The system which ge nerated this result transmit aisha reference range : <=65. The reference range was not used to interpr et this result as erin l/abnormal. [place] 210522-06-12 13:20:00 Test Item Value Reference Range Interpretation Comments AST (test code = AST) 38 See_Comment [Auto mated message] The system which ge nerated this result transmit aisha reference range : <=37. The reference range was not used to interpr et this result as erin l/abnormal. [place] 210522-06-12 13:20:00 Test Item Value Reference Range Interpretation Comments Alk Phos (test code = Alk Phos) 108 39-136 [place] 210522-06-12 13:20:00 Test Item Value Reference Range Interpretation Comments Bili Total (test code = Bili Total) 3.8 0.2-1.3 [place] 210522-06-12 13:20:00 Test Item Value Reference Range Interpretation Comments AGAP (test code = AGAP) 9.9 10.0-20.0 [place] 210522-06-12 13:20:00 Test Item Value Reference Range Interpretation Comments B/C Ratio (test code = B/C Ratio) 12 1 6-25 [place] 210522-06-12 13:20:00 Test Item Value Reference Range Interpretation Comments Globulin (test code = Globulin) 3.4 2.7-4.2 [place] 210522-06-12 13:20:00 Test Item Value Reference Range Interpretation Comments A/G Ratio (test code = A/G Ratio) 1.2 1 0.7-1.6 [place] 210522-06-12 13:20:00 Test Item Value Reference Range Interpretation Comments eGFR (test code = eGFR) 138 [facility] WorthZjoktdoXEXMVRVYDW1679-44-28 13:20:00 Test Item Value Reference Range Interpretation Comments WBC (test code = WBC) 8.1 3.7-10.4 [place] [address]-06-12 13:20:00 Test Item Value Reference Range Interpretation Comments RBC (test code = RBC) 2.79 4.70-6.10 [place] 831202-06-12 13:20:00 Test Item Value Reference Range Interpretation Comments Hgb (test code = Hgb) 9.6 14.0-18.0 [place] [address]-06-12 13:20:00 Test Item Value Reference Range Interpretation Comments Hct (test code = Hct) 25.9 42.0-54.0 [place] [address]-06-12 13:20:00 Test Item Value Reference Range Interpretation Comments MCV (test code = MCV) 92.9 80.0-94.0 [place] [address]-06-12 13:20:00 Test Item Value Reference Range Interpretation Comments MCH (test code = MCH) 34.2 pg 27.0-31.0 [place] [address]-06-12 13:20:00 Test Item Value Reference Range Interpretation Comments MCHC (test code = MCHC) 36.8 32.0-36.0 [facility] WorthKofpybrMRXFJAYTXX6016-26-29 13:20:00 Test Item Value Reference Range Interpretation Comments RDW (test code = RDW) 23.7 11.5-14.5 [place] 831202-06-12 13:20:00 Test Item Value Reference Range Interpretation Comments Platelet (test code = Platelet) 331 133-450 [facility] WorthXcamephARHIVUQITS3984-60-60 13:20:00 Test Item Value Reference Range Interpretation Comments MPV (test code = MPV) 7.2 7.4-10.4 [place] 831202-06-12 13:20:00 Test Item Value Reference Range Interpretation Comments Retic Perf (test code = Yes (01/10/22 8:20 AM) Retic Perf) [facility] WorthOvitajrRNITZGAUQV2943-72-57 13:20:00 Test Item Value Reference Range Interpretation Comments Retic Auto (test code = Retic Auto) 10.0 0.5-1.5 [facility] WorthRlzjmkrAKONZVJICK1034-79-12 13:20:00 Test Item Value Reference Range Interpretation Comments RBC Morph (test code = See Note (01/10/22 8:20 RBC Morph) AM) [facility] WorthKvtgienFJZOMENWOD2152-68-31 13:20:00 Test Item Value Reference Range Interpretation Comments Plt Morph (test code = Normal (01/10/22 8:20 Plt Morph) AM) [facility] WorthLjzdrowHYHFMBSVTH0843-64-73 13:20:00 Test Item Value Reference Range Interpretation Comments Segs (test code = Segs) 61.0 45.0-75.0 [facility] WorthEbcgdreWIQSRJLGCN2356-77-81 13:20:00 Test Item Value Reference Range Interpretation Comments Bands (test code = 2.0 See_Comment [Automat ed message] The Bands) system which ge nerated this result transmit aisha reference range : <=11.0. The reference r duy was not used to interpr et this result as erin l/abnormal. [place] 831202-06-12 13:20:00 Test Item Value Reference Range Interpretation Comments Lymphocytes (test code = Lymphocytes) 25.0 20.0-40.0 [place] 831202-06-12 13:20:00 Test Item Value Reference Range Interpretation Comments Monocytes (test code = Monocytes) 10.0 2.0-12.0 [facility] WorthUrzziimQLWLDELKVI6270-09-23 13:20:00 Test Item Value Reference Range Interpretation Comments Eosinophils (test code = 2.0 See_Comment [A utomated message] The Eosinophils) system which ge nerated this result tra nsmitted reference range : <=4.0. The reference r duy was not used to int erpret this result as normal/abnormal . [facility] WorthYetbbcfKUEYACMKNA9829-92-97 13:20:00 Test Item Value Reference Range Interpretation Comments Neutrophils # (test code = Neutrophils 5.1 1.5-8.1 #) [facility] WorthSqvkbrmIDSTCRIXRB9805-31-20 13:20:00 Test Item Value Reference Range Interpretation Comments Lymphocytes # (test code = Lymphocytes 2.0 1.0-5.5 #) [facility] WorthJyfpvkhSNGZKTJGNO6577-66-08 13:20:00 Test Item Value Reference Range Interpretation Comments Monocytes # (test code 0.8 See_Comment [Aut omated message] The = Monocytes #) system which generated this result tra nsmitted reference range : <=0.8. The reference r duy was not used to int erpret this result as normal/abnormal . [facility] WorthZshfkoaGHDIWFTEJF9521-82-37 13:20:00 Test Item Value Reference Range Interpretation Comments Eosinophils # (test code 0.2 See_Comment [A utomated message] The = Eosinophils #) system whic h generated this result tra nsmitted reference range : <=0.5. The reference r duy was not used to int erpret this result as normal/abnormal . [facility] WorthQnjfkldKLCINQRYAA4827-05-37 13:20:00 Test Item Value Reference Range Interpretation Comments NRBC (test code = NRBC) 6 [facility] WorthHjcwcehBAAROPBFEH0528-87-10 13:20:00 Test Item Value Reference Range Interpretation Comments Anisocyte (test code = 1+ *ABN*(01/10/22 Anisocyte) 8:20 AM) [place] 831202-06-12 13:20:00 Test Item Value Reference Range Interpretation Comments Macrocyte (test code = 1+ *ABN*(01/10/22 Macrocyte) 8:20 AM) [place] 831202-06-12 13:20:00 Test Item Value Reference Range Interpretation Comments Microcyte (test code = 1+ *ABN*(01/10/22 Microcyte) 8:20 AM) [place] 831202-06-12 13:20:00 Test Item Value Reference Range Interpretation Comments Polychrom (test code = Moderate *ABN*(01/10/22 Polychrom) 8:20 AM) [place] 831202-06-12 13:20:00 Test Item Value Reference Range Interpretation Comments Target Cell (test code Moderate *ABN*(01/10/22 = Target Cell) 8:20 AM) [place] 831202-06-12 13:20:00 Test Item Value Reference Range Interpretation Comments Tear Cell (test code Moderate *ABN*(01/10/22 = Tear Cell) 8:20 AM) [place] 831202-06-12 13:20:00 Test Item Value Reference Range Interpretation Comments Sickle Cell (test code Slight *ABN*(01/10/22 = Sickle Cell) 8:20 AM) [facility]2022-06-12 13:20:00 Test Item Value Reference Range Interpretation Comments Glucose Lvl (test code = Glucose Lvl) 116 70-99 [facility]2022-06-12 13:20:00 Test Item Value Reference Range Interpretation Comments BUN (test code = BUN) 8 02-19 [facility]2022-06-12 13:20:00 Test Item Value Reference Range Interpretation Comments Creatinine Lvl (test code = Creatinine 0.65 0.50-1.40 Lvl) [facility]2022-06-12 13:20:00 Test Item Value Reference Range Interpretation Comments Sodium Lvl (test code = Sodium Lvl) 138 135-145 [place] 210522-06-12 13:20:00 Test Item Value Reference Range Interpretation Comments Potassium Lvl (test code = Potassium 3.9 3.5-5.1 Lvl) [place] 210522-06-12 13:20:00 Test Item Value Reference Range Interpretation Comments Chloride Lvl (test code = Chloride Lvl) 105 95-109 [place] 210522-06-12 13:20:00 Test Item Value Reference Range Interpretation Comments CO2 (test code = CO2) 27 24-32 [place] 210522-06-12 13:20:00 Test Item Value Reference Range Interpretation Comments Calcium Lvl (test code = Calcium Lvl) 8.8 8.5-10.5 [place] [address]-06-12 13:20:00 Test Item Value Reference Range Interpretation Comments Total Protein (test code = Total 7.6 6.4-8.4 Protein) [place] 210522-06-12 13:20:00 Test Item Value Reference Range Interpretation Comments Albumin Lvl (test code = Albumin Lvl) 4.2 3.5-5.0 [facility] [id number] 13:20:00 Test Item Value Reference Range Interpretation Comments ALT (test code = ALT) 26 See_Comment [Auto mated message] The system which ge nerated this result transmit aisha reference range : <=65. The reference range was not used to interpr et this result as erin l/abnormal. [facility] [id number] 13:20:00 Test Item Value Reference Range Interpretation Comments AST (test code = AST) 38 See_Comment [Auto mated message] The system which ge nerated this result transmit aisha reference range : <=37. The reference range was not used to interpr et this result as erin l/abnormal. [facility] [id number] 13:20:00 Test Item Value Reference Range Interpretation Comments Alk Phos (test code = Alk Phos) 108 39-136 [facility] [id number] 13:20:00 Test Item Value Reference Range Interpretation Comments Bili Total (test code = Bili Total) 3.8 0.2-1.3 [facility] [id number] 13:20:00 Test Item Value Reference Range Interpretation Comments AGAP (test code = AGAP) 9.9 10.0-20.0 [facility] [id number] 13:20:00 Test Item Value Reference Range Interpretation Comments B/C Ratio (test code = B/C Ratio) 12 1 6-25 [facility] [id number] 13:20:00 Test Item Value Reference Range Interpretation Comments Globulin (test code = Globulin) 3.4 2.7-4.2 [facility] [id number] 13:20:00 Test Item Value Reference Range Interpretation Comments A/G Ratio (test code = A/G Ratio) 1.2 1 0.7-1.6 [facility]2022-06-12 13:20:00 Test Item Value Reference Range Interpretation Comments eGFR (test code = eGFR) 138 [facility] WorthCckbyhcWCZVHYASSY5728-02-28 13:20:00 Test Item Value Reference Range Interpretation Comments WBC (test code = WBC) 8.1 3.7-10.4 [facility] WorthLtqnmoaOOAHPOBVDE7317-23-30 13:20:00 Test Item Value Reference Range Interpretation Comments RBC (test code = RBC) 2.79 4.70-6.10 [facility] WorthPqbdupbBXFGJAOKIM4057-06-59 13:20:00 Test Item Value Reference Range Interpretation Comments Hgb (test code = Hgb) 9.6 14.0-18.0 [place] [address]-06-12 13:20:00 Test Item Value Reference Range Interpretation Comments Hct (test code = Hct) 25.9 42.0-54.0 [place] 831202-06-12 13:20:00 Test Item Value Reference Range Interpretation Comments MCV (test code = MCV) 92.9 80.0-94.0 [facility] WorthBrivxekEXENWRNUMG6914-19-79 13:20:00 Test Item Value Reference Range Interpretation Comments MCH (test code = MCH) 34.2 pg 27.0-31.0 [facility] WorthEsotogbSEQSCGHUXJ8402-59-16 13:20:00 Test Item Value Reference Range Interpretation Comments MCHC (test code = MCHC) 36.8 32.0-36.0 [facility] WorthCjkromnANIVFBEFJX7556-18-53 13:20:00 Test Item Value Reference Range Interpretation Comments RDW (test code = RDW) 23.7 11.5-14.5 [place] [address]-06-12 13:20:00 Test Item Value Reference Range Interpretation Comments Platelet (test code = Platelet) 331 133-450 [facility] WorthFwezcajVKVJBFXGOD8861-45-29 13:20:00 Test Item Value Reference Range Interpretation Comments MPV (test code = MPV) 7.2 7.4-10.4 [place] [address]-06-12 13:20:00 Test Item Value Reference Range Interpretation Comments Retic Perf (test code = Yes (01/10/22 8:20 AM) Retic Perf) [facility] WorthNzkyohdNXADISUFRE5664-86-72 13:20:00 Test Item Value Reference Range Interpretation Comments Retic Auto (test code = Retic Auto) 10.0 0.5-1.5 [place] 831202-06-12 13:20:00 Test Item Value Reference Range Interpretation Comments RBC Morph (test code = See Note (01/10/22 8:20 RBC Morph) AM) [facility] WorthHrrkbuvIYHVBJLEBH7890-40-17 13:20:00 Test Item Value Reference Range Interpretation Comments Plt Morph (test code = Normal (01/10/22 8:20 Plt Morph) AM) [facility] WorthXugplkmJYELUXWJAX2198-51-53 13:20:00 Test Item Value Reference Range Interpretation Comments Segs (test code = Segs) 61.0 45.0-75.0 [facility] WorthPznjxhmEMCFKRTIDK8937-26-21 13:20:00 Test Item Value Reference Range Interpretation Comments Bands (test code = 2.0 See_Comment [Automat ed message] The Bands) system which ge nerated this result transmit aisha reference range : <=11.0. The reference r duy was not used to interpr et this result as erin l/abnormal. [facility] WorthCdfxjunTDTWTWXKDB0751-38-33 13:20:00 Test Item Value Reference Range Interpretation Comments Lymphocytes (test code = Lymphocytes) 25.0 20.0-40.0 [facility] WorthPxnqyaoWMZSNXXOKY6697-93-82 13:20:00 Test Item Value Reference Range Interpretation Comments Monocytes (test code = Monocytes) 10.0 2.0-12.0 [facility] WorthPzuuslfDTGNNZVBNL2860-38-72 13:20:00 Test Item Value Reference Range Interpretation Comments Eosinophils (test code = 2.0 See_Comment [A utomated message] The Eosinophils) system which ge nerated this result tra nsmitted reference range : <=4.0. The reference r duy was not used to int erpret this result as normal/abnormal . [facility] WorthZopjsyzTBJUUQXTWL6617-89-43 13:20:00 Test Item Value Reference Range Interpretation Comments Neutrophils # (test code = Neutrophils 5.1 1.5-8.1 #) [facility] WorthBfxysnjUFXOJXOGUK4616-60-05 13:20:00 Test Item Value Reference Range Interpretation Comments Lymphocytes # (test code = Lymphocytes 2.0 1.0-5.5 #) [facility] WorthUreirfpUIFNBPXGMF2426-50-87 13:20:00 Test Item Value Reference Range Interpretation Comments Monocytes # (test code 0.8 See_Comment [Aut omated message] The = Monocytes #) system which generated this result tra nsmitted reference range : <=0.8. The reference r duy was not used to int erpret this result as normal/abnormal . [facility] WorthFafyevfMVNFELJFIU1346-12-89 13:20:00 Test Item Value Reference Range Interpretation Comments Eosinophils # (test code 0.2 See_Comment [A utomated message] The = Eosinophils #) system whic h generated this result tra nsmitted reference range : <=0.5. The reference r duy was not used to int erpret this result as normal/abnormal . [facility] WorthRpzscjxDVAJWPHLOH5594-03-92 13:20:00 Test Item Value Reference Range Interpretation Comments NRBC (test code = NRBC) 6 [facility] WorthThiefmgJUWPWPKOLC2006-89-68 13:20:00 Test Item Value Reference Range Interpretation Comments Anisocyte (test code = 1+ *ABN*(01/10/22 Anisocyte) 8:20 AM) [facility] WorthWiuhqgaKLGCILUFXB3750-29-83 13:20:00 Test Item Value Reference Range Interpretation Comments Macrocyte (test code = 1+ *ABN*(01/10/22 Macrocyte) 8:20 AM) [facility] WorthYlahlvuJZLLYUQYHO9460-27-37 13:20:00 Test Item Value Reference Range Interpretation Comments Microcyte (test code = 1+ *ABN*(01/10/22 Microcyte) 8:20 AM) [place] 831202-06-12 13:20:00 Test Item Value Reference Range Interpretation Comments Polychrom (test code = Moderate *ABN*(01/10/22 Polychrom) 8:20 AM) [place] [address]-06-12 13:20:00 Test Item Value Reference Range Interpretation Comments Target Cell (test code Moderate *ABN*(01/10/22 = Target Cell) 8:20 AM) [place] 831202-06-12 13:20:00 Test Item Value Reference Range Interpretation Comments Tear Cell (test code Moderate *ABN*(01/10/22 = Tear Cell) 8:20 AM) [place] 831202-06-12 13:20:00 Test Item Value Reference Range Interpretation Comments Sickle Cell (test code Slight *ABN*(01/10/22 = Sickle Cell) 8:20 AM) [facility]buwvwOG[facility]-VfG-0 (COVID-19) RNA [Presence] in Respiratory specimen by ALESSIO with probe mbfkwtszw0210-26-25 00:08:20 Test Item Value Reference Range Interpretation Comments SARS-CoV-2 (COVID-19) RNA Not detected [Presence] in Respiratory specimen by ALESSIO with probe detection (test code = 65155-8) Whether patient is employed in a Unknown healthcare setting (test code = 93822-8) Whether the patient has symptoms Unknown related to condition of interest (test code = 58561-7) Whether the patient was Unknown hospitalized for condition of interest (test code = 52203-4) Whether the patient was admitted Unknown to intensive care unit (ICU) for condition of interest (test code = 63340-1) Whether patient resides in a Unknown congregate care setting (test code = 35665-7) status (test code = Unknown 05068-7) Date and time of symptom onset Unknown (test code = 57275-9) [facility] 18:40:00 Test Item Value Reference Range Interpretation Comments Urine culture (test SEE COMMENT Bacteriu sherlyn screen code = 8133047) negative. [facility] qeiblnt1393-49-72 18:40:00 Test Item Value Reference Range Interpretation Comments Urine culture (test SEE COMMENT Bacteriu sherlyn screen code = 6251812) negative. [facility] vtihdml6827-57-83 18:40:00 Test Item Value Reference Range Interpretation Comments Urine culture (test SEE COMMENT Bacteriu sherlyn screen code = 9678878) negative. [facility] RBC, 1 [id number] 04:15:00 Test Item Value Reference Range Interpretation Comments Product name (test code Red Blood Cells -1, = 25) Leukored Unit number (test code = [id number]) Product code (test code K4905V36 = 3092) Dispense status (test Transfused code = 24) Blood expiration date (test code = 302) Blood type code (test code = 308) Blood type (test code = O POSITIVE 1314) Compatibility (test code Compatible = 6400) [facility] RBC, 1 Iiixq5887-43-06 04:15:00 Test Item Value Reference Range Interpretation Comments Product name (test code Red Blood Cells -1, = 25) Leukored Unit number (test code = [id number]) Product code (test code I0858H08 = 3092) Dispense status (test Transfused code = 24) Blood expiration date (test code = 302) Blood type code (test code = 308) Blood type (test code = O POSITIVE 1314) Compatibility (test code Compatible = 6400) [facility] RBC, 1 [id number] 04:15:00 Test Item Value Reference Range Interpretation Comments Product name (test code Red Blood Cells -1, = 25) Leukored Unit number (test code [id number] = 7167540) Product code (test code X9423K80 = 3092) Dispense status (test Transfused code = 24) Blood expiration date (test code = 302) Blood type code (test 5100 code = 308) Blood type (test code = O POSITIVE 1314) Compatibility (test Compatible code = 6400) [facility] and xisisk4953-12-04 23:11:00 Test Item Value Reference Range Interpretation Comments ABO grouping (test code = 883-9) O Rh type (test code = 53823-1) POS Antibody screen (gel) (test code = NEG 890-4) [facility] and zatkde4557-45-98 23:11:00 Test Item Value Reference Range Interpretation Comments ABO grouping (test code = 883-9) O Rh type (test code = 18293-3) POS Antibody screen (gel) (test code = NEG 890-4) [facility] and jrjvhr7612-64-66 23:11:00 Test Item Value Reference Range Interpretation Comments ABO grouping (test code = 883-9) O Rh type (test code = 36212-8) POS Antibody screen (gel) (test code = NEG 890-4) [facility] 12 [id number] 04:42:03 Test Item Value Reference Range Interpretation Comments Ventricular rate (test code = 253) Atrial rate (test code = 255) VT interval (test code = 266) QRSD interval [...] of 09-MAY-2021 15:35,-No significant change was found- [address]2022-02-02 04:42:03 Test Item Value Reference Range Interpretation Comments Ventricular rate (test code = 253) Atrial rate (test code = 255) VT interval (test code = 266) QRSD interval [...] of 09-MAY-2021 15:35,-No significant change was found- [address]2022-02-02 04:42:03 Test Item Value Reference Range Interpretation Comments Ventricular rate (test code = 253) Atrial rate (test code = 255) VT interval (test code = 266) QRSD interval [...] of 09-MAY-2021 15:35,-No significant change was found- [address]2022-02-02 04:42:03 Test Item Value Reference Range Interpretation Comments Ventricular rate (test 78 code = 253) Atrial rate (test code 78 = 255) VT interval (test code 162 = 266) QRSD interval (test 96 code = 260) QT interval (test code 352 = 264) QTC interval (test code 401 = 265) P axis 1 (test code = 61 267) QRS axis 1 (test code = 40 268) T wave axis (test code 13 = 270) EKG impression (test Sinus rhythm with code = 273) marked sinus arrhythmia-Otherwise normal ECG-In automated comparison with ECG of 09-MAY-2021 15:35,-No significant change was found- [facility] iegvnpm6967-70-34 04:29:40 Test Item Value Reference Range Interpretation Comments Urine culture (test SEE COMMENT Bacteriu sherlyn screen code = 3373281) negative. [facility] [Presence] in Respiratory specimen by ALESSIO with probe wmpqjrvca8129-81-07 18:52:08 Test Item Value Reference Range Interpretation Comments SARS-CoV-2 (COVID-19) RNA Not detected Not-Detected [Presence] in Respiratory specimen by ALESSIO with probe detection (test code = 58266-3) Whether patient is employed in a healthcare setting (test code = 42767-0) Whether the patient has symptoms related to condition of interest (test code = 96135-1) Patient was hospitalized because of this condition (test code = 29922-3) Whether the patient was admitted to intensive care unit (ICU) for condition of interest (test code = 61799-3) Whether patient resides in a congregate care setting (test code = 55164-2) [facility] urinalysis evljibqx2569-72-27 22:36:00 Test Item Value Reference Range Interpretation Comments Color urine, POC (test Dark Yellow code = 9635141) Clarity urine, POC Clear (test code = 2424746) Glucose urine, POC Negative Negative (test code = 2502451) Bilirubin urine, POC Negative Negative (test code = 7126916) Ketones urine, POC Negative Negative (test code = 3619610) Specific gravity urine, 1.005-1.030 POC (test code = 1380101) Blood urine, POC (test Negative Negative code = 7495041) pH urine, POC (test See_Comment [Automa aisha code = 0349654) message] The system which generated this result transmitted reference range : 5.0, 5.5, 6.0, 6.5, 7.0, 7.5, 8.0, 8.5. The reference r duy was not used to interpret this result as normal/abnormal . Protein urine, POC Negative Negative (test code = 4638132) Urobilinogen urine, POC <2.0 A (test code = 9428859) Nitrite urine, POC Negative Negative (test code = 0499786) Leukocyte esterase Negative Negative urine, POC (test code = 8427937) Lab Interpretation Abnormal (test code = 07228-8) [facility] urinalysis xomzcjcn7776-14-02 22:36:00 Test Item Value Reference Range Interpretation Comments Color urine, POC (test Dark Yellow code = 4324657) Clarity urine, POC Clear (test code = 0248171) Glucose urine, POC Negative Negative (test code = 0949770) Bilirubin urine, POC Negative Negative (test code = 2892515) Ketones urine, POC Negative Negative (test code = 7695561) Specific gravity urine, 1.005-1.030 POC (test code = 2771814) Blood urine, POC (test Negative Negative code = 1722869) pH urine, POC (test See_Comment [Automa aisha code = 1556664) message] The system which generated this result transmitted reference range : 5.0, 5.5, 6.0, 6.5, 7.0, 7.5, 8.0, 8.5. The reference r duy was not used to interpret this result as normal/abnormal . Protein urine, POC Negative Negative (test code = 7292561) Urobilinogen urine, POC See_Comment A [Au tomated (test code = 3897140) messag e] The system which generated this result transmitted reference range : <=2.0. The reference range was not used to interpret this result as normal/abnormal . Nitrite urine, POC Negative Negative (test code = 0675824) Leukocyte esterase Negative Negative urine, POC (test code = 8260661) Lab Interpretation Abnormal (test code = 66191-3) [facility] [id number] 06:23:00 Test Item Value Reference Range Interpretation Comments Troponin-I (test code no gt See_Comment [Auto mated message] The = Troponin-I) system which g enerated this result transmit aisha reference range : <=0.40. The reference r duy was not used to interpr et this result as erin l/abnormal. [place] 210521-08-18 06:23:00 Test Item Value Reference Range Interpretation Comments Glucose Lvl (test code = Glucose Lvl) 93 70-99 [place] 210521-08-18 06:23:00 Test Item Value Reference Range Interpretation Comments BUN (test code = BUN) 7 7-22 [place] 210521-08-18 06:23:00 Test Item Value Reference Range Interpretation Comments Creatinine Lvl (test code = Creatinine 0.53 0.50-1.40 Lvl) [place] 210521-08-18 06:23:00 Test Item Value Reference Range Interpretation Comments Sodium Lvl (test code = Sodium Lvl) 140 135-145 [place] 210521-08-18 06:23:00 Test Item Value Reference Range Interpretation Comments Potassium Lvl (test code = Potassium 4.0 3.5-5.1 Lvl) [place] 210521-08-18 06:23:00 Test Item Value Reference Range Interpretation Comments Chloride Lvl (test code = Chloride Lvl) 107 95-109 [place] 210521-08-18 06:23:00 Test Item Value Reference Range Interpretation Comments CO2 (test code = CO2) 29 24-32 [place] 210521-08-18 06:23:00 Test Item Value Reference Range Interpretation Comments Calcium Lvl (test code = Calcium Lvl) 8.1 8.5-10.5 [place] 210521-08-18 06:23:00 Test Item Value Reference Range Interpretation Comments Total Protein (test code = Total 7.4 6.4-8.4 Protein) [place] 210521-08-18 06:23:00 Test Item Value Reference Range Interpretation Comments Albumin Lvl (test code = Albumin Lvl) 4.1 3.5-5.0 [place] 210521-08-18 06:23:00 Test Item Value Reference Range Interpretation Comments ALT (test code = ALT) 25 See_Comment [Auto mated message] The system which ge nerated this result transmit aisha reference range : <=65. The reference range was not used to interpr et this result as erin l/abnormal. [facility] Myla [id number] 06:23:00 Test Item Value Reference Range Interpretation Comments AST (test code = AST) 26 See_Comment [Auto mated message] The system which ge nerated this result transmit aisha reference range : <=37. The reference range was not used to interpr et this result as erin l/abnormal. [facility] [id number] 06:23:00 Test Item Value Reference Range Interpretation Comments Alk Phos (test code = Alk Phos) 83 39-136 [facility] [id number] 06:23:00 Test Item Value Reference Range Interpretation Comments Bili Total (test code = Bili Total) 2.4 0.2-1.3 [facility] [id number] 06:23:00 Test Item Value Reference Range Interpretation Comments AGAP (test code = AGAP) 8.0 10.0-20.0 [facility] [id number] 06:23:00 Test Item Value Reference Range Interpretation Comments B/C Ratio (test code = B/C Ratio) 13 1 6-25 [facility] [id number] 06:23:00 Test Item Value Reference Range Interpretation Comments Globulin (test code = Globulin) 3.3 2.7-4.2 [facility] [id number] 06:23:00 Test Item Value Reference Range Interpretation Comments A/G Ratio (test code = A/G Ratio) 1.2 1 0.7-1.6 [facility] [id number] 06:23:00 Test Item Value Reference Range Interpretation Comments eGFR (test code = eGFR) 151 [facility]IhoewnwZLHMVNKVNA7673-70-79 06:23:00 Test Item Value Reference Range Interpretation Comments WBC (test code = WBC) 7.4 3.7-10.4 [facility]ExreygjZYGFQRVKCF7735-11-13 06:23:00 Test Item Value Reference Range Interpretation Comments RBC (test code = RBC) 2.64 4.70-6.10 [facility]ervilleBhqehdhBCDPRWXNCY2707-01-38 06:23:00 Test Item Value Reference Range Interpretation Comments Hgb (test code = Hgb) 10.1 14.0-18.0 [facility] WorthUwmfextQVEHPQZVZG1392-53-26 06:23:00 Test Item Value Reference Range Interpretation Comments Hct (test code = Hct) 28.0 42.0-54.0 [facility] WorthUtwohbeRKHPYSHALT2249-30-32 06:23:00 Test Item Value Reference Range Interpretation Comments MCV (test code = MCV) 106.2 80.0-94.0 [facility] WorthDnmszeuCOVSMENACA8477-51-14 06:23:00 Test Item Value Reference Range Interpretation Comments MCH (test code = MCH) 38.4 pg 27.0-31.0 [facility] WorthPagwljcBWOKDNOLMG2112-37-75 06:23:00 Test Item Value Reference Range Interpretation Comments MCHC (test code = MCHC) 36.2 32.0-36.0 [facility] WorthYmxstwzRINKWVQNBY8474-38-14 06:23:00 Test Item Value Reference Range Interpretation Comments RDW (test code = RDW) 17.9 11.5-14.5 [facility] WorthFddgdwmWZBDTYXXIW1411-71-58 06:23:00 Test Item Value Reference Range Interpretation Comments Platelet (test code = Platelet) 406 133-450 [facility] WorthAdsjacjBSQVRXGKDQ2405-37-09 06:23:00 Test Item Value Reference Range Interpretation Comments MPV (test code = MPV) 7.0 7.4-10.4 [facility] WorthWfdcxxcNHSDEWFPBI4696-52-84 06:23:00 Test Item Value Reference Range Interpretation Comments Retic Auto (test code = Retic Auto) 7.5 0.5-1.5 [facility] WorthQtywqzdUTAHPHRJHL9485-79-61 06:23:00 Test Item Value Reference Range Interpretation Comments Plt Morph (test code = Normal (03/18/21 1:23 Plt Morph) AM) [facility] WorthPifagczTYSSGPZSHG0030-62-64 06:23:00 Test Item Value Reference Range Interpretation Comments Segs (test code = Segs) 39.6 45.0-75.0 [facility] WorthPpcoxjhSFUMMZYBAF3602-27-65 06:23:00 Test Item Value Reference Range Interpretation Comments Lymphocytes (test code = Lymphocytes) 46.2 20.0-40.0 [facility] WorthTemsgjjBVQITNUABS3872-23-10 06:23:00 Test Item Value Reference Range Interpretation Comments Monocytes (test code = Monocytes) 8.7 2.0-12.0 [place] [address]-08-18 06:23:00 Test Item Value Reference Range Interpretation Comments Eosinophils (test code = 3.7 See_Comment [A utomated message] The Eosinophils) system which ge nerated this result tra nsmitted reference range : <=4.0. The reference r duy was not used to int erpret this result as normal/abnormal . [address]08-18 06:23:00 Test Item Value Reference Range Interpretation Comments Basophils (test code = 1.8 See_Comment [Aut omated message] The Basophils) system which ge nerated this result tra nsmitted reference range : <=1.0. The reference r duy was not used to int erpret this result as normal/abnormal . [address]08-18 06:23:00 Test Item Value Reference Range Interpretation Comments Neutrophils # (test code = Neutrophils 2.9 1.5-8.1 #) [address]08-18 06:23:00 Test Item Value Reference Range Interpretation Comments Lymphocytes # (test code = Lymphocytes 3.4 1.0-5.5 #) [address]08-18 06:23:00 Test Item Value Reference Range Interpretation Comments Monocytes # (test code 0.6 See_Comment [Aut omated message] The = Monocytes #) system which generated this result tra nsmitted reference range : <=0.8. The reference r duy was not used to int erpret this result as normal/abnormal . [place] [address]-08-18 06:23:00 Test Item Value Reference Range Interpretation Comments Eosinophils # (test code 0.3 See_Comment [A utomated message] The = Eosinophils #) system whic h generated this result tra nsmitted reference range : <=0.5. The reference r duy was not used to int erpret this result as normal/abnormal . [place] [address]-08-18 06:23:00 Test Item Value Reference Range Interpretation Comments Basophils # (test code 0.1 See_Comment [Aut omated message] The = Basophils #) system which generated this result tra nsmitted reference range : <=0.2. The reference r duy was not used to int erpret this result as normal/abnormal . [facility]Nx[facility]zyrdFIHF[facility]YIFIS2507[facility]-57 06:23:00 Test Item Value Reference Range Interpretation Comments Anisocyte (test code = 1+ *ABN*(03/18/21 Anisocyte) 1:23 AM) [facility] CenterVdxdspiUYEMACPXTI8205-77-01 06:23:00 Test Item Value Reference Range Interpretation Comments Macrocyte (test code = 1+ *ABN*(03/18/21 Macrocyte) 1:23 AM) [facility] WorthVdjjbtjPUCCKXNMOA2226-45-74 06:23:00 Test Item Value Reference Range Interpretation Comments Polychrom (test code = Moderate *ABN*(03/18/21 Polychrom) 1:23 AM) [facility] HospitalAsqvtbnCDTXDTJSNQ3955-28-48 06:23:00 Test Item Value Reference Range Interpretation Comments Target Cell (test code = Target Cell) Slight [facility] HospitalYslthzcQWAQLDTVCX6287-21-02 06:23:00 Test Item Value Reference Range Interpretation Comments Sickle Cell (test code Slight *ABN*(03/18/21 = Sickle Cell) 1:23 AM) [facility] CenterCARDIAC [id number] 06:23:00 Test Item Value Reference Range Interpretation Comments Troponin-I (test code no gt See_Comment [Auto mated message] The = Troponin-I) system which g enerated this result transmit aisha reference range : <=0.40. The reference r duy was not used to interpr et this result as erin l/abnormal. [facility]Next[facility] [id number] 06:23:00 Test Item Value Reference Range Interpretation Comments Glucose Lvl (test code = Glucose Lvl) 93 70-99 [facility]Next[facility] [id number] 06:23:00 Test Item Value Reference Range Interpretation Comments BUN (test code = BUN) 7 7-22 [facility] CenterCare[facility] Communications [id number] 06:23:00 Test Item Value Reference Range Interpretation Comments Creatinine Lvl (test code = Creatinine 0.53 0.50-1.40 Lvl) [facility] [id number] 06:23:00 Test Item Value Reference Range Interpretation Comments Sodium Lvl (test code = Sodium Lvl) 140 135-145 [facility]Next[facility] [id number] 06:23:00 Test Item Value Reference Range Interpretation Comments Potassium Lvl (test code = Potassium 4.0 3.5-5.1 Lvl) [facility] [id number] 06:23:00 Test Item Value Reference Range Interpretation Comments Chloride Lvl (test code = Chloride Lvl) 107 95-109 [facility]Par[facility] [place] [address]LKGBH2172-97-59 06:23:00 Test Item Value Reference Range Interpretation Comments CO2 (test code = CO2) 29 24-32 [facility] [place] [id number] 06:23:00 Test Item Value Reference Range Interpretation Comments Calcium Lvl (test code = Calcium Lvl) 8.1 8.5-10.5 [facility] [id number] 06:23:00 Test Item Value Reference Range Interpretation Comments Total Protein (test code = Total 7.4 6.4-8.4 Protein) [place] 210521-08-18 06:23:00 Test Item Value Reference Range Interpretation Comments Albumin Lvl (test code = Albumin Lvl) 4.1 3.5-5.0 [facility] [id number] 06:23:00 Test Item Value Reference Range Interpretation Comments ALT (test code = ALT) 25 See_Comment [Auto mated message] The system which ge nerated this result transmit aisha reference range : <=65. The reference range was not used to interpr et this result as erin l/abnormal. [facility] [id number] 06:23:00 Test Item Value Reference Range Interpretation Comments AST (test code = AST) 26 See_Comment [Auto mated message] The system which ge nerated this result transmit aisha reference range : <=37. The reference range was not used to interpr et this result as erin l/abnormal. [facility] [id number] 06:23:00 Test Item Value Reference Range Interpretation Comments Alk Phos (test code = Alk Phos) 83 39-136 [facility] [id number] 06:23:00 Test Item Value Reference Range Interpretation Comments Bili Total (test code = Bili Total) 2.4 0.2-1.3 [facility] [id number] 06:23:00 Test Item Value Reference Range Interpretation Comments AGAP (test code = AGAP) 8.0 10.0-20.0 [facility] [place]annCL[place] [id number] 06:23:00 Test Item Value Reference Range Interpretation Comments B/C Ratio (test code = B/C Ratio) 13 1 6-25 [place] [address]-08-18 06:23:00 Test Item Value Reference Range Interpretation Comments Globulin (test code = Globulin) 3.3 2.7-4.2 [place] [address]-08-18 06:23:00 Test Item Value Reference Range Interpretation Comments A/G Ratio (test code = A/G Ratio) 1.2 1 0.7-1.6 [place] [address]-08-18 06:23:00 Test Item Value Reference Range Interpretation Comments eGFR (test code = eGFR) 151 [place] [address]-08-18 06:23:00 Test Item Value Reference Range Interpretation Comments WBC (test code = WBC) 7.4 3.7-10.4 [place] [address]-08-18 06:23:00 Test Item Value Reference Range Interpretation Comments RBC (test code = RBC) 2.64 4.70-6.10 [place] [address]-08-18 06:23:00 Test Item Value Reference Range Interpretation Comments Hgb (test code = Hgb) 10.1 14.0-18.0 [place] [address]-08-18 06:23:00 Test Item Value Reference Range Interpretation Comments Hct (test code = Hct) 28.0 42.0-54.0 [place] [address]-08-18 06:23:00 Test Item Value Reference Range Interpretation Comments MCV (test code = MCV) 106.2 80.0-94.0 [place] [address]-08-18 06:23:00 Test Item Value Reference Range Interpretation Comments MCH (test code = MCH) 38.4 pg 27.0-31.0 [place] [address]-08-18 06:23:00 Test Item Value Reference Range Interpretation Comments MCHC (test code = MCHC) 36.2 32.0-36.0 [place] 831201-08-18 06:23:00 Test Item Value Reference Range Interpretation Comments RDW (test code = RDW) 17.9 11.5-14.5 [place] 831201-08-18 06:23:00 Test Item Value Reference Range Interpretation Comments Platelet (test code = Platelet) 406 133-450 [facility] WorthGdqzgdyOUKEJWRMBJ6211-74-91 06:23:00 Test Item Value Reference Range Interpretation Comments MPV (test code = MPV) 7.0 7.4-10.4 [place] 831201-08-18 06:23:00 Test Item Value Reference Range Interpretation Comments Retic Auto (test code = Retic Auto) 7.5 0.5-1.5 [place] 831201-08-18 06:23:00 Test Item Value Reference Range Interpretation Comments Plt Morph (test code = Normal (03/18/21 1:23 Plt Morph) AM) [place] 831201-08-18 06:23:00 Test Item Value Reference Range Interpretation Comments Segs (test code = Segs) 39.6 45.0-75.0 [place] 831201-08-18 06:23:00 Test Item Value Reference Range Interpretation Comments Lymphocytes (test code = Lymphocytes) 46.2 20.0-40.0 [place] 831201-08-18 06:23:00 Test Item Value Reference Range Interpretation Comments Monocytes (test code = Monocytes) 8.7 2.0-12.0 [place] 831201-08-18 06:23:00 Test Item Value Reference Range Interpretation Comments Eosinophils (test code = 3.7 See_Comment [A utomated message] The Eosinophils) system which ge nerated this result tra nsmitted reference range : <=4.0. The reference r duy was not used to int erpret this result as normal/abnormal . [facility] WorthZcfphcxFLANWBTDMZ7203-30-80 06:23:00 Test Item Value Reference Range Interpretation Comments Basophils (test code = 1.8 See_Comment [Aut omated message] The Basophils) system which ge nerated this result tra nsmitted reference range : <=1.0. The reference r duy was not used to int erpret this result as normal/abnormal . [place] 831201-08-18 06:23:00 Test Item Value Reference Range Interpretation Comments Neutrophils # (test code = Neutrophils 2.9 1.5-8.1 #) [place] 831201-08-18 06:23:00 Test Item Value Reference Range Interpretation Comments Lymphocytes # (test code = Lymphocytes 3.4 1.0-5.5 #) [facility] WorthSxcjpdfKQMURKCLHL7939-43-90 06:23:00 Test Item Value Reference Range Interpretation Comments Monocytes # (test code 0.6 See_Comment [Aut omated message] The = Monocytes #) system which generated this result tra nsmitted reference range : <=0.8. The reference r duy was not used to int erpret this result as normal/abnormal . [facility] WorthTbcawhpTTNBBHXYTZ1915-78-57 06:23:00 Test Item Value Reference Range Interpretation Comments Eosinophils # (test code 0.3 See_Comment [A utomated message] The = Eosinophils #) system whic h generated this result tra nsmitted reference range : <=0.5. The reference r duy was not used to int erpret this result as normal/abnormal . [facility] WorthDybgvwqTQMAGXACDF5720-85-56 06:23:00 Test Item Value Reference Range Interpretation Comments Basophils # (test code 0.1 See_Comment [Aut omated message] The = Basophils #) system which generated this result tra nsmitted reference range : <=0.2. The reference r duy was not used to int erpret this result as normal/abnormal . [facility] WorthEejrkkmNZWFQJVAPO2416-16-89 06:23:00 Test Item Value Reference Range Interpretation Comments Anisocyte (test code = 1+ *ABN*(03/18/21 Anisocyte) 1:23 AM) [facility] WorthLgzhmeqJDXMSUSXCL3387-85-22 06:23:00 Test Item Value Reference Range Interpretation Comments Macrocyte (test code = 1+ *ABN*(03/18/21 Macrocyte) 1:23 AM) [facility] WorthPjlhslmDDKDTOEWCT2570-20-51 06:23:00 Test Item Value Reference Range Interpretation Comments Polychrom (test code = Moderate *ABN*(03/18/21 Polychrom) 1:23 AM) [facility] WorthHixlmghZGOBALWQBA3487-91-09 06:23:00 Test Item Value Reference Range Interpretation Comments Target Cell (test code = Target Cell) Slight [facility] WorthLcceocyXDPILDYZNR5587-84-97 06:23:00 Test Item Value Reference Range Interpretation Comments Sickle Cell (test code Slight *ABN*(03/18/21 = Sickle Cell) 1:23 AM) [facility] [id number] 06:23:00 Test Item Value Reference Range Interpretation Comments Troponin-I (test code no gt See_Comment [Auto mated message] The = Troponin-I) system which g enerated this result transmit aisha reference range : <=0.40. The reference r duy was not used to interpr et this result as erin l/abnormal. [facility] [id number] 06:23:00 Test Item Value Reference Range Interpretation Comments Glucose Lvl (test code = Glucose Lvl) 93 70-99 [facility] [id number] 06:23:00 Test Item Value Reference Range Interpretation Comments BUN (test code = BUN) 7 7-22 [place] 210521-08-18 06:23:00 Test Item Value Reference Range Interpretation Comments Creatinine Lvl (test code = Creatinine 0.53 0.50-1.40 Lvl) [place] 210521-08-18 06:23:00 Test Item Value Reference Range Interpretation Comments Sodium Lvl (test code = Sodium Lvl) 140 135-145 [facility] [id number] 06:23:00 Test Item Value Reference Range Interpretation Comments Potassium Lvl (test code = Potassium 4.0 3.5-5.1 Lvl) [facility] [id number] 06:23:00 Test Item Value Reference Range Interpretation Comments Chloride Lvl (test code = Chloride Lvl) 107 95-109 [facility] [id number] 06:23:00 Test Item Value Reference Range Interpretation Comments CO2 (test code = CO2) 29 24-32 [facility] [id number] 06:23:00 Test Item Value Reference Range Interpretation Comments Calcium Lvl (test code = Calcium Lvl) 8.1 8.5-10.5 [facility] [id number] 06:23:00 Test Item Value Reference Range Interpretation Comments Total Protein (test code = Total 7.4 6.4-8.4 Protein) [facility] [id number] 06:23:00 Test Item Value Reference Range Interpretation Comments Albumin Lvl (test code = Albumin Lvl) 4.1 3.5-5.0 [facility] [id number] 06:23:00 Test Item Value Reference Range Interpretation Comments ALT (test code = ALT) 25 See_Comment [Auto mated message] The system which ge nerated this result transmit aisha reference range : <=65. The reference range was not used to interpr et this result as erin l/abnormal. [facility] [place] [id number] 06:23:00 Test Item Value Reference Range Interpretation Comments AST (test code = AST) 26 See_Comment [Auto mated message] The system which ge nerated this result transmit aisha reference range : <=37. The reference range was not used to interpr et this result as erin l/abnormal. [facility] [place] [id number] 06:23:00 Test Item Value Reference Range Interpretation Comments Alk Phos (test code = Alk Phos) 83 39-136 [facility] [place] [id number] 06:23:00 Test Item Value Reference Range Interpretation Comments Bili Total (test code = Bili Total) 2.4 0.2-1.3 [facility] [id number] 06:23:00 Test Item Value Reference Range Interpretation Comments AGAP (test code = AGAP) 8.0 10.0-20.0 [facility] [place] [id number] 06:23:00 Test Item Value Reference Range Interpretation Comments B/C Ratio (test code = B/C Ratio) 13 1 6-25 [facility] [id number] 06:23:00 Test Item Value Reference Range Interpretation Comments Globulin (test code = Globulin) 3.3 2.7-4.2 [facility] [id number] 06:23:00 Test Item Value Reference Range Interpretation Comments A/G Ratio (test code = A/G Ratio) 1.2 1 0.7-1.6 [facility] [id number] 06:23:00 Test Item Value Reference Range Interpretation Comments eGFR (test code = eGFR) 151 [facility] CenterEjklkgnGSVCPIRJUF0384-51-89 06:23:00 Test Item Value Reference Range Interpretation Comments WBC (test code = WBC) 7.4 3.7-10.4 [facility]ervillePfkizvgATXRADEVED6483-05-77 06:23:00 Test Item Value Reference Range Interpretation Comments RBC (test code = RBC) 2.64 4.70-6.10 [facility] PflugervilleRvvvvhhBBQFMDAKKY6117-03-45 06:23:00 Test Item Value Reference Range Interpretation Comments Hgb (test code = Hgb) 10.1 14.0-18.0 [facility] WorthKyxxelaIDQFZTEBQP4148-66-76 06:23:00 Test Item Value Reference Range Interpretation Comments Hct (test code = Hct) 28.0 42.0-54.0 [facility] WorthJrcbrckCADSLOWJMR6070-70-85 06:23:00 Test Item Value Reference Range Interpretation Comments MCV (test code = MCV) 106.2 80.0-94.0 [facility] WorthFusgpykBMCNQRRRTO7487-58-18 06:23:00 Test Item Value Reference Range Interpretation Comments MCH (test code = MCH) 38.4 pg 27.0-31.0 [facility] WorthQogpzifIYMQCHSHST6861-59-87 06:23:00 Test Item Value Reference Range Interpretation Comments MCHC (test code = MCHC) 36.2 32.0-36.0 [facility] WorthKludpadVWENLZYICU7193-92-16 06:23:00 Test Item Value Reference Range Interpretation Comments RDW (test code = RDW) 17.9 11.5-14.5 [facility] WorthAvkyreaCQGCOQXDJA4559-56-65 06:23:00 Test Item Value Reference Range Interpretation Comments Platelet (test code = Platelet) 406 133-450 [facility] WorthEfkpaetPYMBHLYRLF4080-83-44 06:23:00 Test Item Value Reference Range Interpretation Comments MPV (test code = MPV) 7.0 7.4-10.4 [facility] WorthGcfgkfvQKKMISFPDI4437-04-45 06:23:00 Test Item Value Reference Range Interpretation Comments Retic Auto (test code = Retic Auto) 7.5 0.5-1.5 [facility] WorthZnaydzfWNTLWFOPVZ6231-40-31 06:23:00 Test Item Value Reference Range Interpretation Comments Plt Morph (test code = Normal (03/18/21 1:23 Plt Morph) AM) [facility] WorthMbdsqliGFEJWNWABL7910-07-14 06:23:00 Test Item Value Reference Range Interpretation Comments Segs (test code = Segs) 39.6 45.0-75.0 [facility] WorthCkihbobIACBFIVLKS1490-80-96 06:23:00 Test Item Value Reference Range Interpretation Comments Lymphocytes (test code = Lymphocytes) 46.2 20.0-40.0 [place] 831201-08-18 06:23:00 Test Item Value Reference Range Interpretation Comments Monocytes (test code = Monocytes) 8.7 2.0-12.0 [place] 831201-08-18 06:23:00 Test Item Value Reference Range Interpretation Comments Eosinophils (test code = 3.7 See_Comment [A utomated message] The Eosinophils) system which ge nerated this result tra nsmitted reference range : <=4.0. The reference r duy was not used to int erpret this result as normal/abnormal . [place] 831201-08-18 06:23:00 Test Item Value Reference Range Interpretation Comments Basophils (test code = 1.8 See_Comment [Aut omated message] The Basophils) system which ge nerated this result tra nsmitted reference range : <=1.0. The reference r duy was not used to int erpret this result as normal/abnormal . [place] 831201-08-18 06:23:00 Test Item Value Reference Range Interpretation Comments Neutrophils # (test code = Neutrophils 2.9 1.5-8.1 #) [place] 831201-08-18 06:23:00 Test Item Value Reference Range Interpretation Comments Lymphocytes # (test code = Lymphocytes 3.4 1.0-5.5 #) [place] [id number] 06:23:00 Test Item Value Reference Range Interpretation Comments Monocytes # (test code 0.6 See_Comment [Aut omated message] The = Monocytes #) system which generated this result tra nsmitted reference range : <=0.8. The reference r duy was not used to int erpret this result as normal/abnormal . [facility] WorthDuukxauMJGFPCKPWN6241-02-22 06:23:00 Test Item Value Reference Range Interpretation Comments Eosinophils # (test code 0.3 See_Comment [A utomated message] The = Eosinophils #) system whic h generated this result tra nsmitted reference range : <=0.5. The reference r duy was not used to int erpret this result as normal/abnormal . [place] 831201-08-18 06:23:00 Test Item Value Reference Range Interpretation Comments Basophils # (test code 0.1 See_Comment [Aut omated message] The = Basophils #) system which generated this result tra nsmitted reference range : <=0.2. The reference r duy was not used to int erpret this result as normal/abnormal . [facility] WorthZqahouuIEYTVELXTG5127-82-84 06:23:00 Test Item Value Reference Range Interpretation Comments Anisocyte (test code = 1+ *ABN*(03/18/21 Anisocyte) 1:23 AM) [facility] WorthTdzwgudYRZPEYWMFQ8908-53-84 06:23:00 Test Item Value Reference Range Interpretation Comments Macrocyte (test code = 1+ *ABN*(03/18/21 Macrocyte) 1:23 AM) [facility] WorthSredproAWWMAJPGET6312-63-06 06:23:00 Test Item Value Reference Range Interpretation Comments Polychrom (test code = Moderate *ABN*(03/18/21 Polychrom) 1:23 AM) [facility] WorthBofrcprSBJKCQWCTP1138-36-47 06:23:00 Test Item Value Reference Range Interpretation Comments Target Cell (test code = Target Cell) Slight [facility] WorthLumziafYIXVKLTLUP6193-17-37 06:23:00 Test Item Value Reference Range Interpretation Comments Sickle Cell (test code Slight *ABN*(03/18/21 = Sickle Cell) 1:23 AM) [facility] Yeswsbtjrlt1552-93-81 15:11:00 Test Item Value Reference Range Interpretation Comments WBC, UA (test code None seen See_Comment [Automat ed = 5821-4) message] The system which generated this result transmit aisha reference range : 0 - 5 /hpf. The reference range was not used to interpret this result as normal/abnormal . RBC, UA (test code None seen See_Comment [Automat ed = 13136-2) message] The system which generated this result [...] code = None seen None seen /lpf 82299-1) Bacteria, UA (test None seen None seen/Few code = 5769-5) JAQCUI (test code = Performed at: 01 - JACQUI) [facility] [address] [id number] Director: Kip Aguilera MD, Phone: [phone] [facility], COMPLETE, WITH REFLEX TO [id number] 15:11:00 Test Item Value Reference Range Interpretation Comments Specific gravity, 1.005-1.030 urine (test code = 2965-2) pH, urine (test 5.0-7.5 code = 5803-2) Color, UA (test Yellow Yellow code = 5778-6) Appearance (test Clear Clear code = 5767-9) WBC esterase, Negative Negative urine (test code = 5799-2) Protein, UA (test Trace Negative/Trace code = 34034-7) Glucose, urine Negative Negative (test code = 2349-9) Ketones, UA (test Negative Negative code = 2514-8) Occult blood, Negative Negative urine (test code = 5794-3) Bilirubin, UA Negative Negative (test code = 5770-3) Urobilinogen, UA 1.0 mg/dL 0.2-1.0 (test code = 94396-0) Nitrite, UA (test Negative Negative code = 5802-4) Microscopic See below: Microscopic was examination (test indicated and was code = 03004-1) performed. Urinalysis reflex Comment This speci men will (test code = 2386) not refle x to a Urine Culture. JACQUI (test code = Performed at: ) [facility] [id number] Director: iKp Aguilera MD, Phone: [phone] Comment: A duplicate report has been generated due to demographic updates. [facility][QL] CMP [id number] 00:00:00 Test Item Value Reference Range Interpretation Comments Glucose (test code = 2345-7) 86 mg/dL 65-99 BUN (test code = 3094-0) 7 mg/dL 6-20 Creatinine; Below Low 0.51 mg/dL 0.76-1.27 Threshold (test code = 2160-0) eGFR If NonAfrcn Am (test code 154 mL/min/1.7 >59 = 25507-6) eGFR If Africn Am (test code = 178 mL/min/1.7 >59 55940-0) BUN/Creatinine Ratio (test 14 9-20 code = 3097-3) Sodium, Serum (test code = 138 mmol/L 215-644 4974-2) Potassium (test code = 2823-3) 4.7 mmol/L 3.5-5.2 Chloride (test code = 2075-0) 102 mmol/L 96-106 Carbon Dioxide, Total (test 20 mmol/L 20-29 code = 2027-9) Calcium (test code = 48616-7) 9.2 mg/dL 8.7-10.2 Protein, Total (test code = 7.3 g/dL 6.0-8.5 2885-2) Albumin (test code = 1751-7) 4.9 g/dL 4.1-5.2 Globulin, Total (test code = 2.4 g/dL 1.5-4.5 71175-9) A/G Ratio (test code = 1759-0) 2.0 1.2-2.2 Bilirubin, Total; Above High 2.9 mg/dL 0.0-1.2 Threshold (test code = 1975-2) Alkaline Phosphatase (test 102 {IU/L} 39-117 code = 6768-6) AST (SGOT) (test code = 26 {IU/L} 0-40 1920-8) ALT (SGPT) (test code = 19 {IU/L} 0-44 1742-6) [facility][QL] [id number] 00:00:00 Test Item Value Reference Range Interpretation Comments LDH; Above High Threshold (test 421 {IU/L} 121-224 code = 2532-0) [facility][QL] VITAMIN D, 25-HYDROXY, LC/MS/[id number] 00:00:00 Test Item Value Reference Range Interpretation Comments Vitamin D, 34.2 ng/mL 30.0-100.0 Vitamin D defic iency has 25-Hydroxy (test been define d by the code = 18038-8) [employer] and an Endocrine So ciety practice guidel ine as alevel of serum 25-OH vitamin D less than 20 ng/mL (1,2).The Endocrine Society went on to further define vitamin Dinsufficiency as a level between 21 and 29 ng/mL (2).1. IOM (Ins titute of Medicine). 2010 . Dietary reference intak es for calcium and D. Marcos [place]: The [employer] Press .2. Bradley BENAVIDEZ, Tatum [place], Faraz rutledge BLANCHARD, et al. Evaluation, treatment, and prevention of vitamin D de ficiency: an Endocrine So [facility] clinical practi ce guideline. JCEM . 2010; 96(7):1911 -30. [facility][QL] [id number] 00:00:00 Test Item Value Reference Range Interpretation [...] Immature See Comment Granulocytes (test code = 33388-5) Immature Grans See Comment (Abs) (test code = 29697-0) NRBC; Above High 10 % 0-0 Threshold (test code = 94070-8) Hematology Note: Manual differen tial was Comments: (test performed. code = 17507-7) [facility][QL] RETICULOCYTE [id number] 00:00:00 Test Item Value Reference Range Interpretation Comments Reticulocyte Count; Above 7.4 % 0.6-2.6 Verified by repeat High Threshold (test code an alysis = 84464-3) [facility][L] Prot+CreatU (Random)2020-10-24 00:00:00 Test Item Value Reference Range Interpretation Comments Creatinine, Urine (test code 65.6 mg/dL Not Estab. = 2161-8) Protein,Total,Urine (test 18.4 mg/dL Not Estab. code = 2888-6) Protein/Creat Ratio (test 280 {mg/g creat} 0-200 code = Protein/Creat Ratio) [facility][L] Hemoglobinopathy Fractionation [id number] 00:00:00 Test Item Value Reference Range Interpretation Comments Hgb F (test code = 12.0 % 0.0-2.0 Hgb F) Hgb A (test code = 7.9 % 96.4-98.8 Hgb A) Hgb A2 (test code = 2.7 % 1.8-3.2 Hgb A2) Hgb S (test code = 77.4 % See_Comment [Automat ed message] Hgb S) The system [employer]versions generated this result transmitted ref erence range: [...] transfusion of a homozygous Hgb S patient. [facility]icians[facility]ansthoracic Echocardiogram Complete, (w Contrast, Strain and 3D if needed)2020-09-03 16:42:05 Test Item Value Reference Range Interpretation Comments Velocity Ratio 0.80 m/s (V1/V2) (test code = 4689) IVS,d (test code = 1.31 cm 4230207109) EF (test code = 61.46 % 2069013490) LVPWD,d (test code = 1.23 cm 3291029170) AoV Mean PG (test mmHg code = 2924684142) AV LVOT peak gradient mmHg (test code = 4788429406) MV valve area p 1/2 4.38 cm2 method (test code = 3411631509) E/A ratio (test code = 5280720255) E wave decelartion msec time (test code = 9188460722) LVOT Diam,S (test 2.41 cm code = 4986138200) LVOT area (test code 4.56 cm2 = 4833371331) LVOT Vmax (test code 1.36 m/s = 6614480002) LVOT VTI (test code = 0.26 m 1697564584) AoV Peak PG (test mmHg code = 9961320261) MV Peak E Johnnie (test 1.12 m/s code = 8129393774) MV stenosis pressure 50.26 ms 1/2 time (test code = 4354291226) MV Peak A Johnnie (test 0.51 m/s code = 4444271790) LV Vol,s A2C (test 66.78 mL code = 1148315726) LV Vol,d A2C (test 183.45 mL code = 8413252564) LA Volume Index (test 30.27 mL/m2 code = 4675814430) AoV Area, Vmax (test 3.63 cm2 code = 2647816102) AoV Area, VTI (test 3.94 cm2 code = 4972663684) AoV Vmax (test code = 1.71 m/s 2602520398) LV,d (test code = 4.87 cm 0974704369) LV,s (test code = 3.26 cm 2773559987) LV Vol,d A4C (test 149.73 ml code = 8349698830) LV Vol,s A4C (test 62.08 ml code = 7864092327) TR Vpeak (test code = 2.84 mm/s 5562341657) MV E A ratio (test code = 1242091830) RA pressure (test mmHg code = 8897004859) TR pk grad (test code mmHg = 5238379593) MR peak grad (test mmHg code = 5516762582) LA Vol 4C (test code 42.00 ml = 0167731576) RVSP (test code = mmHg 5996680663) LV SYS VOL (test code 42.90 ml = 4908469548) LV MARION VOL (test 111.30 ml code = 7426249544) LA diam s (test code 3.60 cm = 2326774328) LA Vol MOD A4C (test 42.28 ml code = 9084215109) LV SV Teich 2D (test 68.40 ml code = 6361653682) LVOT SI (test code = 62.47 ml/m2 6551972336) AoV Cusp sep (test code = 9181831481) Aortic Root (test 3.47 cm code = 9310499644) AoV Vmn (test code = 7700095825) IVS s 2D (test code = 2086169801) LA Ao Ratio Mmode (test code = 0904418924) D E excurs (test code = 6689667316) E f slope (test code = 2214465864) E prime lat (test code = 4527934582) E marisela sept (test code = 9816813693) PV acc T slope (test code = 3776172536) PV AT (test code = msec 4884889475) DRAPER BP EF (test 60.00 % code = 1729224176) LA VOL 2C (test code 59.00 ml = 3383233182) AoV VTI (test code = 0.30 m 3493287092) LV EF,A2C (test code 63.60 % = 0431868681) LV EF,A4C (test code 58.54 % = 5725524687) LV EF,BP (test code = 60.49 % 2219244631) Michael Alpha,d A2C (test 9.36 cm code = 9514979606) Michael Alpha,d A4C (test 9.61 cm code = 0702337346) Michael Alpha,s A2C (test 7.53 cm code = 9577609947) Michale Alpha,s A4C (test 8.04 cm code = 0764607339) LV SV,A2C (test code 116.68 % = 1191391687) LV SV,A4C (test code 87.65 % = 0275441980) LV Vol,d BP (test 167.49 ml code = 0417541634) LV Vol,s BP (test 66.18 nl code = 9737472660) MR Vmax (test code = 4.40 m/s 7422860370) LVOT Vmn (test code = 2003007307) Pt Size (test code = 3940688485) Pt Wt (test code = 3034280236) LVOT mean grad (test mmHg code = 2120757601) LVPW s PLAX (test 1.64 cm code = 4433350157) MV Decel slope (test 8.87 m/s2 code = 7851679666) JACQUI (test code = JACQUI) Left ventricular [...] is normal.Study Quality Study quality is good. [facility] (C[facility]) RNA [Presence] in Respiratory specimen by ALESSIO with probe [id number] 22:20:20 Test Item Value Reference Range Interpretation Comments SARS-CoV-2 (COVID-19) RNA Not detected Not-Detected [Presence] in Respiratory specimen by ALESSIO with probe detection (test code = 48767-9) [facility] [Presence] in Respiratory specimen by ALESSIO with probe [id number] 01:46:48 Test Item Value Reference Range Interpretation Comments SARS-CoV-2 (COVID-19) RNA Not detected Not-Detected [Presence] in Respiratory specimen by ALESSIO with probe detection (test code = 38588-3) [facility][QL] CMP [id number] 00:00:00 Test Item Value Reference Range Interpretation Comments Glucose (test code = 2345-7) 75 mg/dL 65-99 BUN (test code = 3094-0) 7 mg/dL 6-20 Creatinine; Below Low 0.51 mg/dL 0.76-1.27 Threshold (test code = 2160-0) eGFR If NonAfricn Am (test 155 mL/min/1.7 >59 code = 57704-8) eGFR If Africn Am (test code = 179 mL/min/1.7 >59 55437-5) BUN/Creatinine Ratio (test 14 9-20 code = 3097-3) Sodium, Serum (test code = 140 mmol/L 660-320 9300-2) Potassium (test code = 2823-3) 4.8 mmol/L 3.5-5.2 Chloride (test code = 2075-0) 98 mmol/L 96-106 Carbon Dioxide, Total (test 20 mmol/L 20-29 code = 8-9) Calcium (test code = 31744-7) 9.7 mg/dL 8.7-10.2 Protein, Total (test code = 7.8 g/dL 6.0-8.5 2885-2) Albumin (test code = 1751-7) 5.0 g/dL 4.1-5.2 Globalulin, Total (test code = 2.8 g/dL 1.5-4.5 31774-6) A/G Ratio (test code = 1759-0) 1.8 1.2-2.2 Bilirubin, Total; Above High 2.0 mg/dL 0.0-1.2 Threshold (test code = 1975-2) Alkaline Phosphatase; Above 121 {IU/L} 39-117 High Threshold (test code = 6768-6) AST (SGOT) (test code = 24 {IU/L} 0-40 1920-8) ALT (SGPT) (test code = 24 {IU/L} 0-44 1742-6) [facility][QL] [id number] 00:00:00 Test Item Value Reference Range Interpretation Comments Ferritin, Serum; Above High 1605 ng/mL 30-400 Threshold (test code = 2276-4) [facility][QL] VITAMIN D, 25-HYDROXY, LC/MS/[id number] 00:00:00 Test Item Value Reference Range Interpretation Comments Vitamin D, 22.4 ng/mL 30.0-100.0 Vitamin D defic iency has 25-Hydroxy; Below been defin ed by the Low Threshold (test Institut e ofMedicine and code = 98319-3) an Endocrine Society practice guidel ine as alevel of serum 25-OH vitamin D less than 20 ng/mL (1,2).The Endocrine Socie ty went on to further d efine vitamin Dinsuff iciency as a level betw een 21 and 29 ng/mL (2 ).1. IOM ([place] of M edicine). 2010. Dietary r eference intakes for josé antonio cium and D. Marcos D C: The National Academ ies Press.2. Bradley MF, Tatum PAYAN, Faraz BLANCHARD, et al. Evaluation, treatment, and prevention of v itamin D deficiency: an Endocrine Society clinica l practice guidel ine. JCEM. 2010; 96(7):1911-30. [facility][QL] CBC (INCLUDES DIFF/PLT)2020-04-25 00:00:00 Test Item [...] % Not Estab. Granulocytes (test code = 76262-2) Immature Grans 0.0 0.0-0.1 (Abs) (test code = {x10E3/uL} 62952-8) NRBC; Above High 1 % 0-0 Threshold (test code = 61713-7) Hematology Note: Verified by ross roscopic Comments: (test examination. code = 30404-1) [facility][L] Prot+CreatU (Random)2020-04-25 00:00:00 Test Item Value Reference Range Interpretation Comments Creatinine, Urine (test code 107.6 mg/dL Not Estab. = 2161-8) Protein,Total,Urine (test 31.9 mg/dL Not Estab. code = 2888-6) Protein/Creat Ratio (test 296 {mg/g creat} 0-200 code = Protein/Creat Ratio) [facility][L] Hgb Frac. [id number] 00:00:00 Test Item Value Reference Range Interpretation [...] 4.0 % 1.8-3.2 Threshold (test code = 00194-8) Hgb Variant (test code 0.0 % >0.0 = 91149-4) Interpretation (test Note: Hemoglo bin pattern and code = 81190-8) concentratio ns are consistent with transfusionof a homozygous Hgb S patient. [facility]vbnrmfgGQUB-NdJ-0 (COVID-19) RNA [Presence] in Respiratory specimen by ALESSIO with probe oijoxhjcz5392-41-46 00:41:57 Test Item Value Reference Range Interpretation Comments SARS-CoV-2 (COVID-19) RNA Not detected Not-Detected [Presence] in Respiratory specimen by ALESSIO with probe detection (test code = 43289-4) [facility][QL] CBC (INCLUDES DIFF/PLT)2020-01-11 00:00:00 Test Item Value [...] (test 1 % Not Estab. code = 28725-6) Immature Grans (Abs) (test 0.1 {x10E3/uL} 0.0-0.1 code = 87464-3) NRBC; Above High Threshold 2 % 0-0 (test code = 77741-8) Hematology Comments: (test See Comment code = 96964-4) [facility][QL] RETICULOCYTE [id number] 00:00:00 Test Item Value Reference Range Interpretation Comments Reticulocyte Count; Above High 11.9 % 0.6-2.6 Threshold (test code = 99849-1) [facility][QL] CMP W/[id number] 00:00:00 Test Item Value Reference Range Interpretation Comments Glucose; Below Low Threshold 62 mg/dL 65-99 (test code = 2345-7) BUN (test code = 3094-0) 7 mg/dL 6-20 Creatinine; Below Low 0.55 mg/dL 0.76-1.27 Threshold (test code = 2160-0) eGFR If NonAfricn Am (test 150 mL/min/1.7 >59 code = 67570-1) eGFR If Africn Am (test code = 173 mL/min/1.7 >59 25954-0) BUN/Creatinine Ratio (test 13 9-20 code = 3097-3) Sodium, Serum (test code = 138 mmol/L 363-802 2683-2) Potassium; Above High 5.8 mmol/L 3.5-5.2 Threshold (test code = 2823-3) Chloride (test code = 2075-0) 99 mmol/L 96-106 Carbon Dioxide, Total (test 21 mmol/L 20-29 code = 2027-9) Calcium (test code = 10944-7) 9.7 mg/dL 8.7-10.2 Protein, Total (test code = 7.9 g/dL 6.0-8.5 2885-2) Albumin (test code = 1751-7) 5.0 g/dL 4.1-5.2 Globalulin, Total (test code = 2.9 g/dL 1.5-4.5 99574-9) A/G Ratio (test code = 1759-0) 1.7 1.2-2.2 Bilirubin, Total; Above High 2.3 mg/dL 0.0-1.2 Threshold (test code = 1975-2) Alkaline Phosphatase (test 105 {IU/L} 39-117 code = 6768-6) AST (test code = 1920-8) 24 {IU/L} 0-40 ALT (test code = 1742-6) 21 {IU/L} 0-44 [facility][QL] [id number] 00:00:00 Test Item Value Reference Range Interpretation Comments LDH; Above High Threshold (test 369 {IU/L} 121-224 code = 2532-0) [facility][QL] BILIRUBIN, [id number] 00:00:00 Test Item Value Reference Range Interpretation Comments Bilirubin, Direct; Above High 0.46 mg/dL 0.00-0.40 Threshold (test code = 1968-7) [facility][QL] VITAMIN D, 25-HYDROXY, LC/MS/[id number] 00:00:00 Test Item Value Reference Range Interpretation Comments Vitamin D, 26.9 ng/mL 30.0-100.0 Vitamin D defic iency has 25-Hydroxy; Below been defin ed by the Low Threshold (test Instit[facility] e ofMedicine and code = 52286-5) an Endocrine Society practice guidel ine as alevel of serum 25-OH vitamin D less than 20 ng/mL (1,2).The Endocrine Socie ty went on to further d efine vitamin Dinsuff iciency as a level betw een 21 and 29 ng/mL (2 ).1. IOM ([place] of M edicine). 2010. Dietary r eference intakes for josé antonio cium and D. Marcos D C: The National Intrallect ies Press.2. Bradley MF, Tatum PAYAN, Faraz BLANCHARD, et al. Evaluation, treatment, and prevention of v itamin D deficiency: an Endocrine Society clinica l practice guidel ine. JCEM. 2010; 96(7):1911-30. [facility][QL] [id number] 00:00:00 Test Item Value Reference Range Interpretation Comments Ferritin, Serum; Above High 1457 ng/mL 30-400 Threshold (test code = 2276-4) [facility][QL] MICROALBUMIN, RANDOM URINE (W/CREATININE)2020-01-11 00:00:00 Test Item Value Reference Range Interpretation Comments Creatinine, Urine 75.9 mg/dL Not Estab. (test code = 2161-8) Microalbumin, 78.0 ug/mL Not Estab. Urine (test code = 36760-1) Microalb/Creat 103 {mg/g creat} 0-29 Normal: 0 - 29 Ratio (test code Moderately increased: = Microalb/Creat 30 - 300 Se verely Ratio) increased: >300 Please note reference inter shola change [facility][L] Hgb Frac. [id number] 00:00:00 Test Item Value Reference Range Interpretation [...] 4.1 % 1.8-3.2 Threshold (test code = 20358-0) Hgb Variant (test code 0.0 % >0.0 = 16422-6) Interpretation (test Note: Hemoglo bin pattern and code = 96540-0) concentratio ns are consistent withhomozygous sickle cell [...] A2 interpretation ranges have been adjus aisha. [facility]ARDIAC [id number] 03:39:00 Test Item Value Reference Range Interpretation Comments Troponin-I (test code no gt See_Comment [Auto mated message] The = Troponin-I) system which g enerated this result transmit aisha reference range : <=0.40. The reference r duy was not used to interpr et this result as erin l/abnormal. [facility] HospitalRfmfhoaEHYMZMNMCZBE0592-25-11 03:39:00 Test Item Value Reference Range Interpretation Comments AGAP (test code = AGAP) 17.7 10.0-20.0 [facility] HospitalVtzreqaIEZTBYBLOBBR3123-96-88 03:39:00 Test Item Value Reference Range Interpretation Comments B/C Ratio (test code = B/C Ratio) 11 1 6-25 [facility] HospitalMymndnvGDLEVNYKLKTK4712-58-44 03:39:00 Test Item Value Reference Range Interpretation Comments Globulin (test code = Globulin) 3.9 2.7-4.2 [facility] HospitalItfwlbnPPEFCOIKWXCW7936-76-51 03:39:00 Test Item Value Reference Range Interpretation Comments A/G Ratio (test code = A/G Ratio) 1.1 1 0.7-1.6 [facility] HospitalCxmmerkWXABRYPQIBUH0146-88-54 03:39:00 Test Item Value Reference Range Interpretation Comments Glucose Lvl (test code = Glucose Lvl) 100 70-99 [facility] HospitalMxhruevGNCCAMXLGPII9286-28-28 03:39:00 Test Item Value Reference Range Interpretation Comments BUN (test code = BUN) 6 7-22 [facility] HospitalVrdvtrqYDRKHHPBAGPJ2125-27-40 03:39:00 Test Item Value Reference Range Interpretation Comments Creatinine Lvl (test code = Creatinine 0.55 0.50-1.40 Lvl) [facility] HospitalSdhylgrQQPOJGYTHZYD4186-41-36 03:39:00 Test Item Value Reference Range Interpretation Comments Sodium Lvl (test code = Sodium Lvl) 140 135-145 [facility] HospitalZmctjwpNQNCOVIYUXNK5837-72-44 03:39:00 Test Item Value Reference Range Interpretation Comments Potassium Lvl (test code = Potassium 3.7 3.5-5.1 Lvl) [facility] HospitalObtmbcrNGUMNQSJIWTP6061-07-71 03:39:00 Test Item Value Reference Range Interpretation Comments Chloride Lvl (test code = Chloride Lvl) 103 95-109 [facility] HospitalKecsvxkSBGEHKRMZBFC3357-17-05 03:39:00 Test Item Value Reference Range Interpretation Comments CO2 (test code = CO2) 23 24-32 [facility] HospitalEdpfucnFXSIFGHHLTMN2008-50-81 03:39:00 Test Item Value Reference Range Interpretation Comments Calcium Lvl (test code = Calcium Lvl) 9.0 8.5-10.5 [facility] HospitalKuhblstSRRHTKOYGPQO6611-29-60 03:39:00 Test Item Value Reference Range Interpretation Comments eGFR (test code = eGFR) 173 [facility] HospitalOukbvvcDUHSDOMCZAGB4722-10-05 03:39:00 Test Item Value Reference Range Interpretation Comments Total Protein (test code = Total 8.3 6.4-8.4 Protein) [facility] HospitalFnabertIHKMGEPRKBHE5575-13-39 03:39:00 Test Item Value Reference Range Interpretation Comments Albumin Lvl (test code = Albumin Lvl) 4.4 3.5-5.0 [facility] HospitalSatyueqTDDLCVQZLJYX0021-38-61 03:39:00 Test Item Value Reference Range Interpretation Comments ALT (test code = ALT) 36 See_Comment [Auto mated message] The system which ge nerated this result transmit aisha reference range : <=65. The reference range was not used to interpr et this result as erin l/abnormal. [facility] HospitalOtdcwlgHTVUKTOLWWSK0874-88-54 03:39:00 Test Item Value Reference Range Interpretation Comments AST (test code = AST) 34 See_Comment [Auto mated message] The system which ge nerated this result transmit aisha reference range : <=37. The reference range was not used to interpr et this result as erin l/abnormal. [facility] HospitalLlustcdSQVWINJLBEGT1051-30-56 03:39:00 Test Item Value Reference Range Interpretation Comments Alk Phos (test code = Alk Phos) 159 39-136 [facility] HospitalDambsgtNEWMXXXTEGXJ1324-41-82 03:39:00 Test Item Value Reference Range Interpretation Comments Bili Total (test code = Bili Total) 3.5 0.2-1.3 [facility]LeghpdnTUPGXMYBRY2710-93-02 03:39:00 Test Item Value Reference Range Interpretation Comments Retic Auto (test code = Retic Auto) 7.5 0.5-1.5 [facility] CenterCARD[facility] OLCJUTE7385-07-61 03:39:00 Test Item Value Reference Range Interpretation Comments Troponin-I (test code no gt See_Comment [Auto mated message] The = Troponin-I) system which g enerated this result transmit aisha reference range : <=0.40. The reference r duy was not used to interpr et this result as erin l/abnormal. [facility] HospitalNfiecwdDDFYHYAMHPUN0141-15-51 03:39:00 Test Item Value Reference Range Interpretation Comments AGAP (test code = AGAP) 17.7 10.0-20.0 [facility] HospitalDtogcezEJCMZTRMLHNW5306-92-43 03:39:00 Test Item Value Reference Range Interpretation Comments B/C Ratio (test code = B/C Ratio) 11 1 6-25 [facility] HospitalUgiddkgMUQMNEYAURDJ4351-12-72 03:39:00 Test Item Value Reference Range Interpretation Comments Globulin (test code = Globulin) 3.9 2.7-4.2 [facility] HospitalEjcujiuKGTRRKDTMZAZ8340-72-53 03:39:00 Test Item Value Reference Range Interpretation Comments A/G Ratio (test code = A/G Ratio) 1.1 1 0.7-1.6 [facility] HospitalAddhkfrSJINZUIFMSCR4481-46-76 03:39:00 Test Item Value Reference Range Interpretation Comments Glucose Lvl (test code = Glucose Lvl) 100 70-99 [facility] HospitalNfsyadbNQKSKYQUMFSN5949-13-52 03:39:00 Test Item Value Reference Range Interpretation Comments BUN (test code = BUN) 6 7-22 [facility] HospitalKuexoixOYHTXRUGOSQX8832-47-37 03:39:00 Test Item Value Reference Range Interpretation Comments Creatinine Lvl (test code = Creatinine 0.55 0.50-1.40 Lvl) [facility] HospitalJbzrqrcTBPUCLNSVWIP9254-23-12 03:39:00 Test Item Value Reference Range Interpretation Comments Sodium Lvl (test code = Sodium Lvl) 140 135-145 [facility] HospitalFuvctrwXBOVMQEWQZGD2830-74-75 03:39:00 Test Item Value Reference Range Interpretation Comments Potassium Lvl (test code = Potassium 3.7 3.5-5.1 Lvl) [facility] HospitalJkuyyrkEDMYIUWCWCBA2162-76-87 03:39:00 Test Item Value Reference Range Interpretation Comments Chloride Lvl (test code = Chloride Lvl) 103 95-109 [facility] HospitalTjqmsekWPRQVIDGULOY0049-37-68 03:39:00 Test Item Value Reference Range Interpretation Comments CO2 (test code = CO2) 23 24-32 [facility] HospitalWxngnunKJNIPZZPWCQO2054-21-87 03:39:00 Test Item Value Reference Range Interpretation Comments Calcium Lvl (test code = Calcium Lvl) 9.0 8.5-10.5 [facility] HospitalCczalfrSMPWAJIPFMIY7763-85-08 03:39:00 Test Item Value Reference Range Interpretation Comments eGFR (test code = eGFR) 173 [facility] HospitalVaeuzanSJFNETQMOREE4607-27-25 03:39:00 Test Item Value Reference Range Interpretation Comments Total Protein (test code = Total 8.3 6.4-8.4 Protein) [facility] HospitalHattbifVNQPVWSZOHNG3310-90-90 03:39:00 Test Item Value Reference Range Interpretation Comments Albumin Lvl (test code = Albumin Lvl) 4.4 3.5-5.0 [facility] HospitalHwyjgqwHHNQKTPJOZVN5550-16-39 03:39:00 Test Item Value Reference Range Interpretation Comments ALT (test code = ALT) 36 See_Comment [Auto mated message] The system which ge nerated this result transmit aisha reference range : <=65. The reference range was not used to interpr et this result as erin l/abnormal. [facility] HospitalTtbgkkgOWLMDJJLZSNL5753-47-09 03:39:00 Test Item Value Reference Range Interpretation Comments AST (test code = AST) 34 See_Comment [Auto mated message] The system which ge nerated this result transmit aisha reference range : <=37. The reference range was not used to interpr et this result as erin l/abnormal. [facility] HospitalJusdenrYGZWHJBJWHCK0704-34-84 03:39:00 Test Item Value Reference Range Interpretation Comments Alk Phos (test code = Alk Phos) 159 39-136 [facility] HospitalNsszfzmNHXFPZILPFMV6431-77-88 03:39:00 Test Item Value Reference Range Interpretation Comments Bili Total (test code = Bili Total) 3.5 0.2-1.3 [facility]FcfwrkgJBCIQFMYFJ2526-64-51 03:39:00 Test Item Value Reference Range Interpretation Comments Retic Auto (test code = Retic Auto) 7.5 0.5-1.5 [facility] CenterCARDIAC HYCXRKK7794-38-74 03:39:00 Test Item Value Reference Range Interpretation Comments Troponin-I (test code no gt See_Comment [Auto mated message] The = Troponin-I) system which g enerated this result transmit aisha reference range : <=0.40. The reference r duy was not used to interpr et this result as erin l/abnormal. [facility] HospitalVtzrpufODEVQVJFYVMK4411-73-99 03:39:00 Test Item Value Reference Range Interpretation Comments AGAP (test code = AGAP) 17.7 10.0-20.0 [facility] HospitalKxstzmxPZVWSQALCQFC5380-49-68 03:39:00 Test Item Value Reference Range Interpretation Comments B/C Ratio (test code = B/C Ratio) 11 1 6-25 [facility] HospitalWnfvzzfDZUBUUSBIKNR5821-67-49 03:39:00 Test Item Value Reference Range Interpretation Comments Globulin (test code = Globulin) 3.9 2.7-4.2 [facility] HospitalInfuzjsJGKXILQFSRVY4166-11-76 03:39:00 Test Item Value Reference Range Interpretation Comments A/G Ratio (test code = A/G Ratio) 1.1 1 0.7-1.6 [facility] HospitalFcejwumXWIHVQRVKVTK7454-02-31 03:39:00 Test Item Value Reference Range Interpretation Comments Glucose Lvl (test code = Glucose Lvl) 100 70-99 [facility] HospitalPsolmhySRIGSFKPUFEJ7387-88-18 03:39:00 Test Item Value Reference Range Interpretation Comments BUN (test code = BUN) 6 7-22 [facility] HospitalMgsrloqNHXZIUNTMZKO9685-33-63 03:39:00 Test Item Value Reference Range Interpretation Comments Creatinine Lvl (test code = Creatinine 0.55 0.50-1.40 Lvl) [facility] HospitalQigbdrkTMBDIQXJPFQJ5139-80-65 03:39:00 Test Item Value Reference Range Interpretation Comments Sodium Lvl (test code = Sodium Lvl) 140 135-145 [facility] HospitalDawrfirQDGYBEIVPACL2391-49-56 03:39:00 Test Item Value Reference Range Interpretation Comments Potassium Lvl (test code = Potassium 3.7 3.5-5.1 Lvl) [facility] HospitalZmkglzcHXNMQZHNUTBD3047-03-10 03:39:00 Test Item Value Reference Range Interpretation Comments Chloride Lvl (test code = Chloride Lvl) 103 95-109 [facility] HospitalXxzukcsNFIXKTEFDGHH9643-59-86 03:39:00 Test Item Value Reference Range Interpretation Comments CO2 (test code = CO2) 23 24-32 [facility] HospitalTmiltchDXVRMZSBNRLW5759-08-74 03:39:00 Test Item Value Reference Range Interpretation Comments Calcium Lvl (test code = Calcium Lvl) 9.0 8.5-10.5 [facility] HospitalYbuinvzYZTBOFPWNSAL5566-17-56 03:39:00 Test Item Value Reference Range Interpretation Comments eGFR (test code = eGFR) 173 [facility] HospitalWifuiebPEVUBKVZKPZS5249-89-97 03:39:00 Test Item Value Reference Range Interpretation Comments Total Protein (test code = Total 8.3 6.4-8.4 Protein) [facility] HospitalHszxcmbTFRTOCEDRNJM6454-48-04 03:39:00 Test Item Value Reference Range Interpretation Comments Albumin Lvl (test code = Albumin Lvl) 4.4 3.5-5.0 [facility] HospitalLrimmqwZUWLSUKYAUHI8244-95-55 03:39:00 Test Item Value Reference Range Interpretation Comments ALT (test code = ALT) 36 See_Comment [Auto mated message] The system which ge nerated this result transmit aisha reference range : <=65. The reference range was not used to interpr et this result as erin l/abnormal. [facility] HospitalAvanaqjCNCTXERTJNSZ3518-81-42 03:39:00 Test Item Value Reference Range Interpretation Comments AST (test code = AST) 34 See_Comment [Auto mated message] The system which ge nerated this result transmit aisha reference range : <=37. The reference range was not used to interpr et this result as erin l/abnormal. [facility] HospitalZardvpyRYGCKQCCPBXO9910-94-80 03:39:00 Test Item Value Reference Range Interpretation Comments Alk Phos (test code = Alk Phos) 159 39-136 [facility] HospitalRotoidwLVMVPHGYKPGE6281-55-81 03:39:00 Test Item Value Reference Range Interpretation Comments Bili Total (test code = Bili Total) 3.5 0.2-1.3 [facility] WorthVpdkukiLOYOCOSYKM7072-74-12 03:39:00 Test Item Value Reference Range Interpretation Comments Retic Auto (test code = Retic Auto) 7.5 0.5-1.5 [facility] WorthOuowqbsJORODUUBRI3888-82-73 03:33:42 Test Item Value Reference Range Interpretation Comments Neutrophils # (test code = Neutrophils 5.6 1.5-8.1 #) [facility] WorthThkwusmPWDMUJXDIJ7019-92-85 03:33:42 Test Item Value Reference Range Interpretation Comments Lymphocytes # (test code = Lymphocytes 2.1 1.0-5.5 #) [facility] WorthXygxuczSYCUPAQTRK2162-44-77 03:33:42 Test Item Value Reference Range Interpretation Comments Monocytes # (test code 0.8 See_Comment [Aut omated message] The = Monocytes #) system which generated this result tra nsmitted reference range : <=0.8. The reference r duy was not used to int erpret this result as normal/abnormal . [facility] WorthFkqyfteBWUANFENNW8485-92-25 03:33:42 Test Item Value Reference Range Interpretation Comments Eosinophils # (test code 0.3 See_Comment [A utomated message] The = Eosinophils #) system whic h generated this result tra nsmitted reference range : <=0.5. The reference r duy was not used to int erpret this result as normal/abnormal . [facility] WorthXvdezgvCFIQWBDTCG6232-30-70 03:33:42 Test Item Value Reference Range Interpretation Comments Segs (test code = Segs) 64.0 45.0-75.0 [facility] WorthHfuatmqIDTJUJKEUM1988-36-70 03:33:42 Test Item Value Reference Range Interpretation Comments Bands (test code = 0.0 See_Comment [Automat ed message] The Bands) system which ge nerated this result transmit aisha reference range : <=11.0. The reference r duy was not used to interpr et this result as erin l/abnormal. [facility] WorthPccoxubNVIQUEDVLT4754-13-27 03:33:42 Test Item Value Reference Range Interpretation Comments Lymphocytes (test code = Lymphocytes) 24.0 20.0-40.0 [facility] WorthUpvzpegXWWQSWYILD9164-66-28 03:33:42 Test Item Value Reference Range Interpretation Comments Monocytes (test code = Monocytes) 9.0 2.0-12.0 [facility] WorthQgjbrrxOJLGUEEDVG8523-14-43 03:33:42 Test Item Value Reference Range Interpretation Comments Eosinophils (test code = 3.0 See_Comment [A utomated message] The Eosinophils) system which ge nerated this result tra nsmitted reference range : <=4.0. The reference r duy was not used to int erpret this result as normal/abnormal . [facility] WorthEqpeewvNUWRZLPHUQ0941-26-14 03:33:42 Test Item Value Reference Range Interpretation Comments Atypical Lymphs (test code = Atypical 0.0 Lymphs) [facility] WorthGbksdrsWJLCPTUQLR5231-32-08 03:33:42 Test Item Value Reference Range Interpretation Comments NRBC (test code = NRBC) 3 [facility] WorthPckbgqrFALJBNTBJL7864-24-51 03:33:42 Test Item Value Reference Range Interpretation Comments Plt Morph (test code = Normal (07/30/19 9:33 Plt Morph) PM) [facility] WorthIybgnenWDTWRJZJDH9947-07-89 03:33:42 Test Item Value Reference Range Interpretation Comments Anisocyte (test code = 1+ *ABN*(07/30/19 Anisocyte) 9:33 PM) [facility] WorthFgtorneLYEJIUUZIW6158-66-71 03:33:42 Test Item Value Reference Range Interpretation Comments Polychrom (test code = Moderate Polychrom) *ABN*(07/30/19 9:33 PM) [facility] WorthYdnnftbETUNLKLFKE2677-10-94 03:33:42 Test Item Value Reference Range Interpretation Comments Target Cell (test code = Target Cell) Slight [facility] WorthJwtrexvLOXUPHASGR2431-10-53 03:33:42 Test Item Value Reference Range Interpretation Comments Schistocyte (test code = 1-3 per HPF Schistocyte) (07/30/19 9:33 PM) [facility] WorthWjrikmuXPHMTZMCDZ0780-67-33 03:33:42 Test Item Value Reference Range Interpretation Comments Sickle Cell (test code Slight *ABN*(07/30/19 = Sickle Cell) 9:33 PM) [facility] WorthFcxuvsvMYDUGLOXAR9159-48-94 03:33:42 Test Item Value Reference Range Interpretation Comments HJ Body (test code = Occasional *ABN*(07/30/19 HJ Body) 9:33 PM) [facility] WorthRdswkvsJDFSOABUVW1291-36-73 03:33:42 Test Item Value Reference Range Interpretation Comments WBC (test code = WBC) 8.7 3.7-10.4 [facility] WorthStzprkxTZWAGEDQJC1683-83-62 03:33:42 Test Item Value Reference Range Interpretation Comments RBC (test code = RBC) 2.72 4.70-6.10 [facility] WorthCchrshwMJOSWUYUOI2069-93-25 03:33:42 Test Item Value Reference Range Interpretation Comments Hgb (test code = Hgb) 9.2 14.0-18.0 [facility] WorthZykknnnCCLRFFFEQA2560-52-84 03:33:42 Test Item Value Reference Range Interpretation Comments Hct (test code = Hct) 25.8 42.0-54.0 [facility] WorthKoejoxxSTLQQOSRMD3032-18-68 03:33:42 Test Item Value Reference Range Interpretation Comments MCV (test code = MCV) 94.9 80.0-94.0 [place] 425069-12-31 03:33:42 Test Item Value Reference Range Interpretation Comments MCH (test code = MCH) 33.8 pg 27.0-31.0 [facility] WorthTdnfyywARFWVDDYHL2354-43-52 03:33:42 Test Item Value Reference Range Interpretation Comments MCHC (test code = MCHC) 35.6 32.0-36.0 [facility] WorthSqacwauWAFTPWIKUE7280-85-57 03:33:42 Test Item Value Reference Range Interpretation Comments RDW (test code = RDW) 25.4 11.5-14.5 [place] 425069-12-31 03:33:42 Test Item Value Reference Range Interpretation Comments Platelet (test code = Platelet) 514 133-450 [facility] WorthVdtlxdnXRTNIUYFLK1958-49-52 03:33:42 Test Item Value Reference Range Interpretation Comments MPV (test code = MPV) 7.2 7.4-10.4 [facility] WorthKbwswvaVEBMMRINGG5850-87-59 03:33:42 Test Item Value Reference Range Interpretation Comments PT (test code = PT) 14.2 s 12.0-14.7 [place] 425069-12-31 03:33:42 Test Item Value Reference Range Interpretation Comments INR (test code = INR) 1.10 1 0.85-1.17 [facility] WorthZhpkinfTIWSWMMTIP4660-72-05 03:33:42 Test Item Value Reference Range Interpretation Comments PTT (test code = PTT) 34.9 s 22.9-35.8 [facility] WorthEmqwolqXZRXNXOJBW9307-10-97 03:33:42 Test Item Value Reference Range Interpretation Comments Neutrophils # (test code = Neutrophils 5.6 1.5-8.1 #) [facility] WorthCpnrpbnOGKJELIGPC1491-59-47 03:33:42 Test Item Value Reference Range Interpretation Comments Lymphocytes # (test code = Lymphocytes 2.1 1.0-5.5 #) [place] [address]-12-31 03:33:42 Test Item Value Reference Range Interpretation Comments Monocytes # (test code 0.8 See_Comment [Aut omated message] The = Monocytes #) system which generated this result tra nsmitted reference range : <=0.8. The reference r duy was not used to int erpret this result as normal/abnormal . [facility] WorthXaoqnovPDNPLUANYW3321-06-72 03:33:42 Test Item Value Reference Range Interpretation Comments Eosinophils # (test code 0.3 See_Comment [A utomated message] The = Eosinophils #) system whic h generated this result tra nsmitted reference range : <=0.5. The reference r duy was not used to int erpret this result as normal/abnormal . [facility] WorthAstcesvXKXAXZJXMU4311-98-87 03:33:42 Test Item Value Reference Range Interpretation Comments Segs (test code = Segs) 64.0 45.0-75.0 [facility] WorthKieliyyGSFPHILPBB9218-07-58 03:33:42 Test Item Value Reference Range Interpretation Comments Bands (test code = 0.0 See_Comment [Automat ed message] The Bands) system which ge nerated this result transmit aisha reference range : <=11.0. The reference r duy was not used to interpr et this result as erin l/abnormal. [facility] WorthQnenogyRIQHJCOINK4038-53-73 03:33:42 Test Item Value Reference Range Interpretation Comments Lymphocytes (test code = Lymphocytes) 24.0 20.0-40.0 [facility] WorthPvkdosbLDMXSAXDPU6498-62-27 03:33:42 Test Item Value Reference Range Interpretation Comments Monocytes (test code = Monocytes) 9.0 2.0-12.0 [facility] WorthMvxmafrNXIMYIDUHB1726-59-17 03:33:42 Test Item Value Reference Range Interpretation Comments Eosinophils (test code = 3.0 See_Comment [A utomated message] The Eosinophils) system which ge nerated this result tra nsmitted reference range : <=4.0. The reference r duy was not used to int erpret this result as normal/abnormal . [facility] WorthSryolmeBLUIGRDYAY5055-62-52 03:33:42 Test Item Value Reference Range Interpretation Comments Atypical Lymphs (test code = Atypical 0.0 Lymphs) [facility] WorthBqpmmevPPQKXKZAIX3162-77-44 03:33:42 Test Item Value Reference Range Interpretation Comments NRBC (test code = NRBC) 3 [facility] WorthNaznrsfLCPBSNEMBL5052-97-99 03:33:42 Test Item Value Reference Range Interpretation Comments Plt Morph (test code = Normal (07/30/19 9:33 Plt Morph) PM) [facility] WorthVraqlyiYARDZSTBOD7671-51-23 03:33:42 Test Item Value Reference Range Interpretation Comments Anisocyte (test code = 1+ *ABN*(07/30/19 Anisocyte) 9:33 PM) [facility] WorthBafvhkpGXGWLBIHAU9549-69-10 03:33:42 Test Item Value Reference Range Interpretation Comments Polychrom (test code = Moderate Polychrom) *ABN*(07/30/19 9:33 PM) [facility] WorthZqxiyeeBHGHJMZXCR1782-77-81 03:33:42 Test Item Value Reference Range Interpretation Comments Target Cell (test code = Target Cell) Slight [facility] WorthPqjraasLZLWVXLPKK0060-71-31 03:33:42 Test Item Value Reference Range Interpretation Comments Schistocyte (test code = 1-3 per HPF Schistocyte) (07/30/19 9:33 PM) [facility] WorthIopyisfOBJBZJVRPI7259-21-32 03:33:42 Test Item Value Reference Range Interpretation Comments Sickle Cell (test code Slight *ABN*(07/30/19 = Sickle Cell) 9:33 PM) [facility] WorthVwdrzqaOQUZIJPTBR9472-94-33 03:33:42 Test Item Value Reference Range Interpretation Comments HJ Body (test code = Occasional *ABN*(07/30/19 HJ Body) 9:33 PM) [facility] WorthGjethfpXVNMUUSJXR5217-08-99 03:33:42 Test Item Value Reference Range Interpretation Comments WBC (test code = WBC) 8.7 3.7-10.4 [facility] WorthSvxdymjJOCPHKZRHR2676-97-43 03:33:42 Test Item Value Reference Range Interpretation Comments RBC (test code = RBC) 2.72 4.70-6.10 [facility] WorthXvtjobqESULPGFNEH9181-54-12 03:33:42 Test Item Value Reference Range Interpretation Comments Hgb (test code = Hgb) 9.2 14.0-18.0 [facility] WorthJforghlWOZULQHAGC3947-57-66 03:33:42 Test Item Value Reference Range Interpretation Comments Hct (test code = Hct) 25.8 42.0-54.0 [facility] WorthWgpnqlnJYLYZIXPHR6741-02-34 03:33:42 Test Item Value Reference Range Interpretation Comments MCV (test code = MCV) 94.9 80.0-94.0 [facility] WorthFxkkxagWKLXYHXLGJ8891-37-00 03:33:42 Test Item Value Reference Range Interpretation Comments MCH (test code = MCH) 33.8 pg 27.0-31.0 [facility] WorthLsrfffaLYOFZXMQRX1753-04-14 03:33:42 Test Item Value Reference Range Interpretation Comments MCHC (test code = MCHC) 35.6 32.0-36.0 [facility] WorthKizvuehHEKLQZALRJ6223-50-79 03:33:42 Test Item Value Reference Range Interpretation Comments RDW (test code = RDW) 25.4 11.5-14.5 [place] 425069-12-31 03:33:42 Test Item Value Reference Range Interpretation Comments Platelet (test code = Platelet) 514 133-450 [facility] WorthIszzozcYYJHNGACVE1123-16-77 03:33:42 Test Item Value Reference Range Interpretation Comments MPV (test code = MPV) 7.2 7.4-10.4 [facility] WorthRyhdbnqOTXJBDHQEG7851-04-85 03:33:42 Test Item Value Reference Range Interpretation Comments PT (test code = PT) 14.2 s 12.0-14.7 [place] [address]-12-31 03:33:42 Test Item Value Reference Range Interpretation Comments INR (test code = INR) 1.10 1 0.85-1.17 [facility] WorthUnnolrxCXBHJXCWTE6995-59-01 03:33:42 Test Item Value Reference Range Interpretation Comments PTT (test code = PTT) 34.9 s 22.9-35.8 [facility] WorthAesbuecQFMUSDPNLH8174-92-13 03:33:42 Test Item Value Reference Range Interpretation Comments Neutrophils # (test code = Neutrophils 5.6 1.5-8.1 #) [facility] WorthVxjvoyoWTXFPLJWQT4400-25-41 03:33:42 Test Item Value Reference Range Interpretation Comments Lymphocytes # (test code = Lymphocytes 2.1 1.0-5.5 #) [facility] WorthWfwmikkEWZUUAFIAM5487-13-12 03:33:42 Test Item Value Reference Range Interpretation Comments Monocytes # (test code 0.8 See_Comment [Aut omated message] The = Monocytes #) system which generated this result tra nsmitted reference range : <=0.8. The reference r duy was not used to int erpret this result as normal/abnormal . [facility] WorthWuzppycEZHXXAWNSS7346-39-93 03:33:42 Test Item Value Reference Range Interpretation Comments Eosinophils # (test code 0.3 See_Comment [A utomated message] The = Eosinophils #) system whic h generated this result tra nsmitted reference range : <=0.5. The reference r duy was not used to int erpret this result as normal/abnormal . [facility] WorthGyaqeehQSWBENWVPV8629-91-85 03:33:42 Test Item Value Reference Range Interpretation Comments Segs (test code = Segs) 64.0 45.0-75.0 [facility] WorthKimwlakPBVHMBQFRF9181-65-72 03:33:42 Test Item Value Reference Range Interpretation Comments Bands (test code = 0.0 See_Comment [Automat ed message] The Bands) system which ge nerated this result transmit aisha reference range : <=11.0. The reference r duy was not used to interpr et this result as erin l/abnormal. [facility] WorthOenvdikJOKFWBIXVC5859-10-27 03:33:42 Test Item Value Reference Range Interpretation Comments Lymphocytes (test code = Lymphocytes) 24.0 20.0-40.0 [facility] WorthUjdzifaORGITPAMQY5072-46-82 03:33:42 Test Item Value Reference Range Interpretation Comments Monocytes (test code = Monocytes) 9.0 2.0-12.0 [facility] WorthDdqgsxlIHSTYQYXKY0355-78-84 03:33:42 Test Item Value Reference Range Interpretation Comments Eosinophils (test code = 3.0 See_Comment [A utomated message] The Eosinophils) system which ge nerated this result tra nsmitted reference range : <=4.0. The reference r duy was not used to int erpret this result as normal/abnormal . [facility] WorthTruirylAYDLSFPZKR2922-02-05 03:33:42 Test Item Value Reference Range Interpretation Comments Atypical Lymphs (test code = Atypical 0.0 Lymphs) [facility] WorthOslpmaoYJRUTISSHT0250-04-55 03:33:42 Test Item Value Reference Range Interpretation Comments NRBC (test code = NRBC) 3 [facility] WorthRdphaohRXKNTSRETM6848-67-43 03:33:42 Test Item Value Reference Range Interpretation Comments Plt Morph (test code = Normal (07/30/19 9:33 Plt Morph) PM) [facility] WorthFzkxzotICMVHZANJH9531-05-23 03:33:42 Test Item Value Reference Range Interpretation Comments Anisocyte (test code = 1+ *ABN*(07/30/19 Anisocyte) 9:33 PM) [facility] [id number] 03:33:42 Test Item Value Reference Range Interpretation Comments Polychrom (test code = Moderate Polychrom) *ABN*(07/30/19 9:33 PM) [facility] [id number] 03:33:42 Test Item Value Reference Range Interpretation Comments Target Cell (test code = Target Cell) Slight [facility] WorthIsimbhgWXJQXGMXVA3715-06-34 03:33:42 Test Item Value Reference Range Interpretation Comments Schistocyte (test code = 1-3 per HPF Schistocyte) (07/30/19 9:33 PM) [facility] Wor[id number] 03:33:42 Test Item Value Reference Range Interpretation Comments Sickle Cell (test code Slight *ABN*(07/30/19 = Sickle Cell) 9:33 PM) [facility] WorthBthhjduFGQGYXILTM7715-53-48 03:33:42 Test Item Value Reference Range Interpretation Comments HJ Body (test code = Occasional *ABN*(07/30/19 HJ Body) 9:33 PM) [facility] WorthAxzzdhlDBWZLTBRZX5013-02-63 03:33:42 Test Item Value Reference Range Interpretation Comments WBC (test code = WBC) 8.7 3.7-10.4 [facility] WorthCgrgiogTEDMKGMCHV1189-87-78 03:33:42 Test Item Value Reference Range Interpretation Comments RBC (test code = RBC) 2.72 4.70-6.10 [facility] WorthFneuutfAGNVBSIWQM4895-82-61 03:33:42 Test Item Value Reference Range Interpretation Comments Hgb (test code = Hgb) 9.2 14.0-18.0 [facility] WorthPkozpomSESOOTCJDY5217-72-53 03:33:42 Test Item Value Reference Range Interpretation Comments Hct (test code = Hct) 25.8 42.0-54.0 [facility] WorthMssvbtpCTJZQPEZQO4755-94-10 03:33:42 Test Item Value Reference Range Interpretation Comments MCV (test code = MCV) 94.9 80.0-94.0 [facility] WorthVilbfpeAZTNVEWGKC7845-18-10 03:33:42 Test Item Value Reference Range Interpretation Comments MCH (test code = MCH) 33.8 pg 27.0-31.0 [facility] WorthXovmbqlYNPROUIDZX9147-38-14 03:33:42 Test Item Value Reference Range Interpretation Comments MCHC (test code = MCHC) 35.6 32.0-36.0 [facility] WorthVfraqjvUMKNJSTGMP8572-90-79 03:33:42 Test Item Value Reference Range Interpretation Comments RDW (test code = RDW) 25.4 11.5-14.5 [facility] WorthAxgeirnQDIVJVQXEI5995-32-54 03:33:42 Test Item Value Reference Range Interpretation Comments Platelet (test code = Platelet) 514 133-450 [facility] WorthCvnpqnjUOZLTFDMQS8881-21-29 03:33:42 Test Item Value Reference Range Interpretation Comments MPV (test code = MPV) 7.2 7.4-10.4 [facility] WorthFznetkkCEGDOZRGPS5334-62-93 03:33:42 Test Item Value Reference Range Interpretation Comments PT (test code = PT) 14.2 s 12.0-14.7 [facility] WorthMvcimguPZBASFOMEB0281-72-68 03:33:42 Test Item Value Reference Range Interpretation Comments INR (test code = INR) 1.10 1 0.85-1.17 [facility] WorthMrhefhhPBQNERVBUW9980-49-33 03:33:42 Test Item Value Reference Range Interpretation Comments PTT (test code = PTT) 34.9 s 22.9-35.8 [facility]] CMP [id number] 00:00:00 Test Item Value Reference Range Interpretation Comments Glucose (test code = 2345-7) 82 mg/dL 65-99 BUN (test code = 3094-0) 6 mg/dL 6-20 Creatinine; Below Low 0.48 mg/dL 0.76-1.27 Threshold (test code = 2160-0) eGFR If NonAfricn Am (test 159 mL/min/1.7 >59 code = 73544-3) eGFR If Africn Am (test code = 183 mL/min/1.7 >59 98925-5) BUN/Creatinine Ratio (test 13 9-20 code = 3097-3) Sodium, Serum (test code = 139 mmol/L 171-802 6891-2) Potassium (test code = 2823-3) 4.4 mmol/L 3.5-5.2 Chloride (test code = 2075-0) 99 mmol/L 96-106 Carbon Dioxide, Total (test 22 mmol/L 20-29 code = 8-9) Calcium, Serum (test code = 9.4 mg/dL 8.7-10.2 79691-6) Protein, Total (test code = 7.8 g/dL 6.0-8.5 2885-2) Albumin (test code = 1751-7) 4.7 g/dL 3.5-5.5 Globalulin, Total (test code = 3.1 g/dL 1.5-4.5 48986-6) A/G Ratio (test code = 1759-0) 1.5 1.2-2.2 Bilirubin, Total; Above High 1.9 mg/dL 0.0-1.2 Threshold (test code = 1975-2) Alkaline Phosphatase; Above 183 {IU/L} 39-117 High Threshold (test code = 6768-6) AST (SGOT) (test code = 19 {IU/L} 0-40 1920-8) ALT (SGPT) (test code = 9 {IU/L} 0-44 1742-6) [facility]] CBC (INCLUDES DIFF/PLT)2019-06-15 00:00:00 Test Item [...] (test 0 % Not Estab. code = 11916-7) Immature Grans (Abs) (test 0.0 {x10E3/uL} 0.0-0.1 code = 00958-3) NRBC (test code = 59329-7) See Comment Hematology Comments: (test See Comment code = 52910-4) [facility]] VITAMIN D, 25-HYDROXY, LC/MS/[id number] 00:00:00 Test Item Value Reference Range Interpretation Comments Vitamin D, 12.4 ng/mL 30.0-100.0 Vitamin D defic iency has 25-Hydroxy; Below been defin ed by the Low Threshold (test Instit[facility] e ofMedicine and code = 81917-1) an Endocrine Society practice guidel ine as alevel of serum 25-OH vitamin D less than 20 ng/mL (1,2).The Endocrine Socie ty went on to further d efine vitamin Dinsuff iciency as a level betw een 21 and 29 ng/mL (2 ).1. IOM ([place] of M edicine). 2010. Dietary r eference intakes for josé antonio cium and D. Marcos D C: The National Academ ies Press.2. Bradley BENAVIDEZ, Tatum PAYAN, Faraz BLANCHARD, et al. Evaluation, treatment, and prevention of v itamin D deficiency: an Endocrine Society clinica l practice guidel ine. JCEM. 2010; 96(0):1911-30. [facility]] [id number] 00:00:00 Test Item Value Reference Range Interpretation Comments LDH; Above High Threshold (test 264 {IU/L} 121-224 code = 2532-0) [facility]] BILIRUBIN, [id number] 00:00:00 Test Item Value Reference Range Interpretation Comments Bilirubin, Direct; Above High 0.56 mg/dL 0.00-0.40 Threshold (test code = 1968-7) [facility]] [id number] 00:00:00 Test Item Value Reference Range Interpretation Comments Ferritin, Serum; Above High 1752 ng/mL 30-400 Threshold (test code = 2276-4) [facility]] RETICULOCYTE [id number] 00:00:00 Test Item Value Reference Range Interpretation Comments Reticulocyte Count; Above High 5.7 % 0.6-2.6 Threshold (test code = 49811-6) [facility]] MICROALBUMIN, RANDOM URINE (W/CREATININE)2019-06-15 00:00:00 Test Item Value Reference Range Interpretation Comments Creatinine, Urine 85.1 mg/dL Not Estab. (test code = 2161-8) Microalbumin, 43.5 ug/mL Not Estab. Urine (test code = 97292-4) Microalb/Creat 51.1 {mg/g creat} 0.0-30.0 Normal: 0.0 - 30.0 Ratio (test code Albuminuria : 31.0 - = Microalb/Creat 300.0 Clini josé antonio Ratio) albuminuria: >3 00.0 [facility][L] Hgb Frac. [id number] 00:00:00 Test Item Value Reference Range Interpretation [...] 4.1 % 1.8-3.2 Threshold (test code = 00453-9) Hgb Variant (test code 0.0 % >0.0 = 11654-2) Interpretation (test Note: Hemoglo bin pattern and code = 87690-8) concentratio ns are consistent with transfusionof a homozygous Hgb S patient. [facility][L] Drug Profile, Ur, 9 [id number] 00:00:00 Test Item Value Reference Range Interpretation Comments Amphetamines, Urine Negative Smbfvy=7506 Amphetam ine test (test code = 01762-7) includ es Amphetamine and Methamphetamine . Barbituate (test code Negative Qsbriq=986 = 95601-5) Benzodiazepines (test Negative Njqilp=590 code = 3390-2) Cannabinoid (test code See Final Cutoff=50 = 27763-1) Results Cannabinoid (test code Positive Cutoff=50 A = Cannabinoid) Carboxy THC GC/MS Conf 200 ng/mL Cutoff=15 (test code = Carboxy THC GC/MS Conf) Cocaine (Metab.) (test Negative Huntfv=656 code = 3393-6) Opiates (test code = Negative Aglioh=748 Opiate test 3879-4) includes Codein e and Morphine only. Phencyclidine (test Negative Cutoff=25 code = 3936-2) Methadone Screen, Negative Pozxss=123 Urine (test code = 96444-0) Propoxyphene, Urine Negative Rtrkul=953 (test code = 11404-9) [facility]
[2022-08-31 21:57] LABS: Urine Blood Negative (Negative); Urine Glucose Negative (Negative); Urine Protein Negative (Negative); Urine Specific Gravity 1.015 (1.005-1.030)
[2022-08-31 22:05] LABS: Absolute Lymphocytes (CBC) 2.6 K/uL (0.7-4.9); Hematocrit 25.2 % (39.6-49.0); Lymphocytes % 26.8 % (15.3-44.8); MCV 90.2 fL (80-100); MPV 7.5 fL (7.6-11.3); RBC Red Blood Cell Count 2.79 M/uL (4.33-5.43)
[2022-08-31 22:07] LABS: Blood Morphology Comment NOT SEEN (NOT SEEN); Platelet Estimate ADEQ; White Blood Cell Scan OK (OK)
[2022-08-31 22:15] LABS: Potassium 3.9 mmol/L (3.5-5.1)
--- NOTE | 2022-08-31 22:30 | RAD REPORT ---
EXAM DESCRIPTION: RAD - Chest Single View - 08/31/2022 10:20 pm CLINICAL HISTORY: COUGH Chest pain. COMPARISON: Chest Single View dated 07/29/2022; Chest Pa And Lat (2 Views) dated 07/25/2022; Chest S roxie View dated 09/12/2018; CHEST PA AND LAT 2 VIEW dated 07/01/2011 FINDINGS: Portable technique limits examination quality. The lungs are grossly clear. The cardiac silhouette is mildly prominent. Nondisplaced fracture eviden t. IMPRESSION: No acute intrathoracic process suspected.
[2022-08-31 22:37] LABS: SARS-COV-2 RT PCR NEGATIVE (NEGATIVE)
--- NOTE | 2022-08-31 23:26 | ER ---
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 Coronavirus screen: Vaccine status: Patient reports being unvaccinated. Ebola Screen: No symptoms or risks identified at this time. Initial Sepsis Screen: Does the patient meet any 2 criteria? No. Patient's initial sepsis screen is negative. Does the patient have a suspected source of infection? No. Patient's initial sepsis screen is negative. Risk Assessment: Do you want to hurt yourself or someone else? Patient reports no desire to harm self or others. Onset of symptoms was August 31, 2022. 21:10 Method Of Arrival: Ambulatory kd3 21:10 Acuity: HAIM 3 kd3 Triage Assessment: 21:11 General: Appears uncomfortable, Behavior is calm, cooperative. Pain: Complains of pain kd3 in right leg. Neuro: Level of Consciousness is awake, alert, obeys commands, Oriented to person, place, time, situation. 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 - Social history:: Smoking status: Patient/guardian denies using tobacco. Screenin:59 [facility] ED Fall Risk Assessment (Adult) Score/Fall Risk Level 0 - 2 = Low Risk. Abuse as6 screen: Denies threats or abuse. Denies injuries from another. Nutritional screening: No deficits noted. Tuberculosis screening: No symptoms or risk factors identified. Assessment: 21:30 General: Appears in no apparent distress. Behavior is calm, cooperative. Pain: as6 Complains of pain in right upper thigh and right leg. Neuro: Level of Consciousness is awake, alert, obeys commands, Oriented to person, place, time, situation. Cardiovascular: Capillary refill < 3 seconds Patient's skin is warm and dry. Respiratory: Respiratory effort is even, unlabored, Respiratory pattern is regular, symmetrical. Derm: Skin is intact, is healthy with good turgor. 22:32 Reassessment: Patient appears in no apparent distress at this time. Patient and/or as6 family updated on plan of care and expected duration. Pain level reassessed. Patient is alert, oriented x 3, equal unlabored respirations, skin warm/dry/pink. Patient states feeling better. Vital Signs: 21:10 Pulse 90; Resp 19; Temp 99.5(O); Pulse Ox 94% ; Weight 68.04 kg; Height 5 ft. 6 in. kd3 (167.64 cm); Pain 6/10; 21:12 BP 115 / 69; kd3 22:31 BP 117 / 66; Pulse 68; Resp 18 S; Pulse Ox 100% on R/A; as6 23:26 BP 111 / 69; Pulse 72; Resp 17 S; Pulse Ox 100% on R/A; as6 21:10 Body Mass Index 24.21 (68.04 kg, 167.64 cm) kd3 ED Course: 21:06 Patient arrived in ED. ag3 21:11 Triage completed. kd3 21:11 Arm band placed on right wrist. kd3 21:22 Jeffrey Wu MD is Attending Physician. [facility] 21:22 Sridhar Alatorre, ELLA is Primary Nurse. as6 21:40 Inserted saline lock: 20 gauge in right forearm, using aseptic technique. Blood as6 collected. 21:59 Placed in gown. Bed in low position. Call light in reach. Side rails up X 1. Pulse ox as6 on. NIBP on. 22:22 Chest Single View XRAY In Process Unspecified. EDMS 23:27 No provider procedures requiring assistance completed. as6 23:31 IV discontinued, intact, bleeding controlled, No redness/swelling at site. Pressure as6 dressing applied. Administered Medications: 21:40 Drug: NS 0.9% 1000 ml Route: IV; Rate: 1 bolus; Site: right forearm; as6 23:28 Follow up: Response: No adverse reaction; IV Status: Completed infusion; IV Intake: as6 1000ml 21:40 Drug: foLIC Acid 1 mg Route: IVPB; Site: right forearm; as6 23:27 Follow up: Response: No adverse reaction; IV Status: Completed infusion; IV Intake: 25nwes2 21:40 Drug: Zofran (Ondansetron) 4 mg Route: IVP; Site: right forearm; as6 23:27 Follow up: Response: No adverse reaction as6 21:40 Drug: Dilaudid (HYDROmorphone) 1 mg Route: IVP; Site: right forearm; as6 23:27 Follow up: Response: No adverse reaction as6 21:40 Drug: NS 0.9% 1000 ml Route: IV; Rate: 1 bolus; Site: right forearm; as6 23:27 Follow up: Response: No adverse reaction; IV Status: Completed infusion; IV Intake: as6 1000ml Medication: 21:59 VIS not applicable for this client. as6 Intake: 23:27 IV: 1000ml; Total: 1000ml. as6 23:27 IV: 10ml; Total: 1010ml. as6 23:28 IV: 1000ml; Total: 2010ml. as6 Outcome: 23:25 Discharge ordered by MD. charles 23:27 Discharged to home ambulatory, with friend. as6 23:27 Condition: stable 23:31 Discharge instructions given to patient, Instructed on discharge instructions, follow as6 up and referral plans. medication usage, Demonstrated understanding of instructions, follow-up care, medications, Prescriptions given X 1. 23:32 Patient left the ED. as6 Signatures: Dispatcher [employer] EDMS Jeffrey Wu MD MD cha Gomez, Alice ag3 Sridhar Alatorre, RN RN as6 Magali Ramirez RN RN kd3
--- NOTE | 2022-08-31 23:26 | EDPHYS ---
Physician Documentation [facility] Name: Justin Baugh Age: 22 yrs Sex: Male : 2000 Arrival Date: 08/31/2022 Time: 21:06 Bed 4 Private MD: ED Physician Jeffrey Wu HPI: 08/31 21:49 This 22 yrs old Black Male presents to ER via Ambulatory with complaints of Leg Pain. melvin 21:49 The patient presents with an abrasion, pain, that is acute. The complaints affect the melvin right upper thigh. Context: The problem was sustained at an unknown site, resulted from an unknown cause, SSC. Onset: The symptoms/episode began/occurred 1 day(s) ago. Modifying factors: The symptoms are alleviated by nothing. the symptoms are aggravated by nothing. Associated signs and symptoms: Pertinent positives: PAIN RIGHT LEG , COLD SYMPTOMS. Severity of symptoms: At their worst the symptoms were mild, in the emergency department the symptoms are unchanged. The patient has experienced similar episodes in the past, multiple times. 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 - Social history:: Smoking status: Patient/guardian denies using tobacco. ROS: 21:53 Constitutional: Negative for fever, chills, and weight loss, Eyes: Negative for injury, melvin pain, redness, and discharge, ENT: Negative for injury, pain, and discharge, Neck: Negative for injury, pain, and swelling, Cardiovascular: Negative for chest pain, palpitations, and edema, Abdomen/GI: Negative for abdominal pain, nausea, vomiting, diarrhea, and constipation, Back: Negative for injury and pain, : Negative for injury, bleeding, discharge, and swelling, Skin: Negative for injury, rash, and discoloration, Neuro: Negative for headache, weakness, numbness, tingling, and seizure, Psych: Negative for depression, anxiety, suicide ideation, homicidal ideation, and hallucinations, Allergy/Immunology: Negative for hives, rash, and allergies, Endocrine: Negative for neck swelling, polydipsia, polyuria, polyphagia, and marked weight changes, Hematologic/Lymphatic: Negative for swollen nodes, abnormal bleeding, and unusual bruising. 21:53 Respiratory: Positive for cough, with no reported sputum. Exam: 21:53 Constitutional: This is a well developed, well nourished patient who is awake, alert, melvin and in no acute distress. Head/Face: Normocephalic, atraumatic. Eyes: Pupils equal round and reactive to light, extra-ocular motions intact. Lids and lashes normal. Conjunctiva and sclera are non-icteric and not injected. Cornea within normal limits. Periorbital areas with no swelling, redness, or edema. Neck: Trachea midline, no thyromegaly or masses palpated, and no cervical lymphadenopathy. Supple, full range of motion without nuchal rigidity, or vertebral point tenderness. No Meningismus. Chest/axilla: Normal chest wall appearance and motion. Nontender with no deformity. No lesions are appreciated. Cardiovascular: Regular rate and rhythm with a normal S1 and S2. No gallops, murmurs, or rubs. Normal PMI, no JVD. No pulse deficits. Respiratory: Lungs have equal breath sounds bilaterally, clear to auscultation and percussion. No rales, rhonchi or wheezes noted. No increased work of breathing, no retractions or nasal flaring. Abdomen/GI: Soft, non-tender, with normal bowel sounds. No distension or tympany. No guarding or rebound. No evidence of tenderness throughout. Back: No spinal tenderness. No costovertebral tenderness. Full range of motion. Male : Normal genitalia with no discharge or lesions. Skin: Warm, dry with normal turgor. Normal color with no rashes, no lesions, and no evidence of cellulitis. Neuro: Awake and alert, GCS 15, oriented to person, place, time, and situation. Cranial nerves II-XII grossly intact. Motor strength 5/5 in all extremities. Sensory grossly intact. Cerebellar exam normal. Normal gait. Psych: Awake, alert, with orientation to person, place and time. Behavior, mood, and affect are within normal limits. 21:53 ENT: Nose: nasal drainage, that is minimal, and is seen coming from both nares. 21:53 Musculoskeletal/extremity: Extremities: all appear grossly normal, with no appreciated pain with palpation, ROM: no acute changes, intact in all extremities, full active range of motion, full passive range of motion, Circulation is intact in all extremities. Sensation intact. Compartment Syndrome exam of affected extremity: is normal. DVT Exam: No signs of deep vein thrombosis. no pain, no swelling, no tenderness, negative Homans' sign noted on exam, no appreciated bluish discoloration, no erythema, no increased warmth. Vital Signs: 21:10 Pulse 90; Resp 19; Temp 99.5(O); Pulse Ox 94% ; Weight 68.04 kg; Height 5 ft. 6 in. kd3 (167.64 cm); Pain 6/10; 21:12 BP 115 / 69; kd3 22:31 BP 117 / 66; Pulse 68; Resp 18 S; Pulse Ox 100% on R/A; as6 23:26 BP 111 / 69; Pulse 72; Resp 17 S; Pulse Ox 100% on R/A; as6 21:10 Body Mass Index 24.21 (68.04 kg, 167.64 cm) kd3 MDM: 21:22 Patient medically screened. [facility] 21:56 Differential diagnosis: contusion, tendonitis. Differential Diagnosis flu, Influenza melvin Upper Respiratory Infection Pharyngitis Viral Syndrome. Data reviewed: vital signs, nurses notes, lab test result(s), radiologic studies, plain films. Consideration of Admission/Observation Patient was admitted/placed on observation. Escalation of care including admission/observation considered. Test considered but Not performed: CT: CT HIP. Historians other than the Patient: Friend: friend. Care significantly affected by the following chronic conditions: sickle cell. 08/31 21:25 Order name: CBC with Diff; Complete Time: 23:10 [facility] 08/31 21:25 Order name: Comprehensive Metabolic Panel; Complete Time: 23:10 [facility] 08/31 21:25 Order name: Retic Count; Complete Time: 23:10 [facility] 08/31 21:25 Order name: Lactate w/ 2H reflex if indic.; Complete Time: 23:10 [facility] 08/31 21:25 Order name: Blood Culture Adult (2) [facility] 08/31 21:26 Order name: COVID-19/FLU A+B; Complete Time: 23:10 [facility] 08/31 21:25 Order name: Chest Single View XRAY; Complete Time: 23:10 [facility] 08/31 21:58 Order name: Urine Dipstick-Ancillary; Complete Time: 23:10 [facility] 08/31 22:07 Order name: CBC Smear Scan; Complete Time: 23:10 [facility] 08/31 21:25 Order name: Urine Dipstick-Ancillary (obtain specimen); Complete Time: 21:58 [facility] 08/31 21:25 Order name: Oxygen: 2 liters nc; Complete Time: 21:58 [facility] Administered Medications: 21:40 Drug: NS 0.9% 1000 ml Route: IV; Rate: 1 bolus; Site: right forearm; as6 23:28 Follow up: Response: No adverse reaction; IV Status: Completed infusion; IV Intake: as6 1000ml 21:40 Drug: foLIC Acid 1 mg Route: IVPB; Site: right forearm; as6 23:27 Follow up: Response: No adverse reaction; IV Status: Completed infusion; IV Intake: [id number] 21:40 Drug: Zofran (Ondansetron) 4 mg Route: IVP; Site: right forearm; as6 23:27 Follow up: Response: No adverse reaction as6 21:40 Drug: Dilaudid (HYDROmorphone) 1 mg Route: IVP; Site: right forearm; as6 23:27 Follow up: Response: No adverse reaction as6 21:40 Drug: NS 0.9% 1000 ml Route: IV; Rate: 1 bolus; Site: right forearm; as6 23:27 Follow up: Response: No adverse reaction; IV Status: Completed infusion; IV Intake: as6 1000ml Disposition Summary: 08/31/22 23:25 Discharge Ordered Location: Home [facility] Problem: new melvin Symptoms: have improved melvin Condition: Stable melvin Diagnosis - Other sickle-cell disorders with crisis, unspecified melvin - Unspecified symptoms and signs involving the musculoskeletal system melvin - Acute upper respiratory infection, unspecified melvin Followup: melvin - With: Private Physician - When: 2 - 3 days - Reason: Recheck today's complaints, Continuance of care, Re-evaluation by your physician Discharge Instructions: - Discharge Summary Sheet melvin - Anemia melvin - Sickle Cell Anemia, Adult melvin - Sickle Cell Anemia, Adult, Gfkn-kf-Xabk melvin - What You Should Know About Sickle Cell Trait - [facility] [place] melvin - Upper Respiratory Infection, Adult, Cutd-ed-Bafz melvin Forms: - Medication Reconciliation Form melvin - Thank You Letter melvin - Antibiotic Education melvin - Prescription Opioid Use [facility] Prescriptions: - Folic Acid 1 mg Oral Tablet - take 1 tablet by ORAL route once daily; 30 tablet; Refills: 0, Product melvin Selection Permitted Signatures: Dispatcher [employer] Jeffrey Bee MD MD cha Slawson, Ashby, RN RN as6 Magali Ramirez RN RN kd3
[2022-08-31 23:45] VITALS: TEMP 99.5
[2022-08-31 23:55] VITALS: O2SAT 100
[2022-08-31 23:57] VITALS: BP 111/69
== END 2022-08-31 23:32 | disposition home or self-care (01) ==
LOC: ER 20:49
DX: D57.819 Other sickle-cell disorders with crisis, unspecified (principal); J06.9 Acute upper respiratory infection, unspecified; R29.91 Unspecified symptoms and signs involving the musculoskeletal system; Z20.822 Contact with and (suspected) exposure to COVID-19; Z88.3 Allergy status to other anti-infective agents
CPT/HCPCS: 87040 ×2; 85025; 36415; 85044; 83605; 81003; 80053; 0240U; 71045; J1170; J7030; J2405

== ENCOUNTER 2022-09-02 16:26 | Emergency (ER) | payer OTHER ==
--- OUTSIDE RECORDS SUMMARY | 2022-09-02 16:49 | XMS REPORT | Continuity of Care Document ---
:2000 Author Organization [facility] t Address [address] [place] [address] Care Team Providers Name Role Phone Maki Harding MD Primary Care Physician TAL DAVIS Attending Clinician Unavailable MAKI HARDING Attending Clinician Unavailable RIN DAVIS Attending Clinician Unavailable CISCO VITAL Attending Clinician Unavailable KARLO JONES Attending Clinician Unavailable XAVIER VORA Attending Clinician Unavailable Brooke Claudio RN Attending Clinician Unavailable GEOVANNI LANGLEY Attending Clinician Unavailable PAO MARTINEZ Attending Clinician Unavailable Jeff Corbett MD Attending Clinician [phone] Estrellita Cano Attending Clinician ESTRELLITA CANO Attending Clinician Unavailable Irina Parks Attending Clinician IRINA PARKS Attending Clinician Unavailable Gavin Pena RN Attending Clinician Unavailable PRACHI CANO Attending Clinician Unavailable Prachi Cano Attending Clinician Cammie Price Attending Clinician CAMMIE PRICE Attending Clinician Unavailable Holli Valera Attending Clinician Unavailable Marianne Guerra RN Attending Clinician Unavailable Jt [facility], Kianna Attending Clinician Unavailable Nancy PATHAK, Manuel Avila Attending Clinician Mor PATHAK, Keny Duffy Attending Clinician Yoselin PATHAK, Kota Jackson Attending Clinician [phone] Salazar LOVE, Alice Attending Clinician Unavailable Kwabena Mariano MD Attending Clinician Nerissa PATHAK, Vanessa Attending Clinician MD VANESSA MULTANI Attending Clinician Unavailable Selwyn JARAMILLO, Pushpa Attending Clinician Unavailable [facility], Fabi Attending Clinician Unavailable Bettye JARAMILLO, Yessica Attending Clinician Unavailable Rayo JARAMILLO, Manjula Attending Clinician Unavailable Barbara Harding DO Attending Clinician Rohit PATHAK, Gary Cisneros Attending Clinician Fatemeh Loredo Attending Clinician FATEMEH LOREDO Attending Clinician Unavailable Lucila Alvarez RN Attending Clinician Unavailable Amira JARAMILLO, Elsa Attending Clinician Unavailable Adri Melendez RN Attending Clinician Unavailable Rajat Ash Attending Clinician Unavailable Arianna JARAMILLO, Marianne Attending Clinician Unavailable Ana Laura JARAMILLO, Yajaira Attending Clinician Unavailable Eryn Qiu RN Attending Clinician Unavailable Latosha Brooks RN Attending [...] Date Expiration Date S olivia [employer] [id number] 2021 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 00:00:00 Problems Condition Condition Condition Status Onset Resolution Last Treating Co mments Source Name Details Category Date Date Treatment Clinician Date LIP INJURY LIP Diagnosis Active 2021-082022-06-14 Memoria INJURY 0-05 17:03:00 l Active 00:00: Stiven 05/05/2022 00 [facility] SICKLE SICKLE Diagnosis Active 2022-04-20 Me moria CELL CELL 9-19 08:22:00 l CRISIS CRISIS 00:00: Stiven Active 00 04/19/2022 [facility] SICKLE SICKLE Diagnosis Active 2022-01-11 Me moria CELL CELL 6-13 04:41:00 l Active 00:00: Mcbee 01/11/2022 00 [facility] ACUTE ACUTE Diagnosis Active 2022-04-16 Mem oria SICKLE SICKLE - 11:38:00 l CELL CELL 00:00: Mcbee CRISIS CRISIS 00 Active 01/11/2022 [facility] Sickle Sickle Disease Active Methodi cell cell 3-28 st crisis crisis 00:00: Hospita 00 l Intractabl 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 2-25 th migraine migraine 00:00: without without 00 aura [...] LT PAIN, LT RIBC RIBC Active 03/17/2021 [facility] Lymphadeni Lymphadeni Disease Active U T tis [...] 10-23 14:52:00 l 10/23/2020 13:10: Sang nichols [address] Encounter Encounter Disease Active MD for for 2-12 Health support support 00:00: and and 00 coordinati coordinati on of on of transition transition of care of care 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 08-[address] r r 00:00: t & [...] Proteinuri Disease Active U T a a 04-25 Health 00:00: 00 Sickle Sickle Disease Active Methodi cell cell 3 st retinopath retinopath 00:00: Ho spita y y 00 l Vitamin D Vitamin D Disease Active Met hodi deficiency deficiency 3 st 00:00: Hospita 00 l Back Back Disease Active [facility] muscle muscle 1-24 Health spasm spasm 00:00: 00 Chronic Chronic Disease Active 2018-08 [facility] pain pain 2-23 Health 00:00: 00 Vitamin D Vitamin D Disease Active 2018-08 Met hodi deficiency deficiency 17 st 00:00: Hospita 00 l Pulmonary Pulmonary [...] Fred sherlyn (disorder) (disorder) 21:08:20 l Active Mcbee Problem 05/08/2022 [facility] Hyponatrem Hyponatre Problem Active 2022-05-08 Memoria ia bettina 21:08:20 l (disorder) (disorder) He rmann Active Problem 05/08/2022 [facility] N50.89 - N50.89 - Diagnosis Active 2022-04-09 Memoria OTHER OTHER 14:05:00 l SPECIFIED SPECIFIED Herm shakira DISORDERS DISORDERS OF T OF T Active [facility] Sickle Sickle Disease Active Last Methodi cell [...] 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 Assessmen t & Plan: Hospita Formattin l g [...] Joel coulter d d 00 04/19/2022 2 [facility] Hb-SS Hb-SS Problem 2022-04-21 2022-04-21 M emoria disease disease 04-19 22:19:11 22:19:11 l with with 17:26: Stiven crisis, crisis, 00 unspecifie unspecifie d d 04/19/2022 04/21/2022 [facility] Pleurodyni Pleurodyn Problem 2021-01-26 2021-01-26 Memoria a ia 01-24 21:56:01 21:56:01 l 01/24/2021 17:00: Sang n 1 [facility] Headache, Headache, Problem 2021-01-26 2021-01-26 Memoria unspecifie unspecifie 01-24 21:56:01 21:56:01 l d d 17:00: Mcbee 01/24/2021 00 01/26/2021 [facility] Pain in Pain in Problem 2020-10-25 2020-10-25 Memoria leg, leg, - 22:15:22 22:15:22 l unspecifie unspecifie 17:00: He rmann d d 00 10/23/2020 10/25/2020 [facility] Allergies, Adverse Reactions, Alerts Allergy Allergy [...] Physici (finding ans ) Rocephin Rocephin Active Ade a l Stiven Family History Family Member Diagnosis Comments Start [...] Phys icians Thalassemia trait Natural father Diabetes [facility] Natural father Heart attack [facility] Natural father Stroke [facility] Maternal Diabetes [facility] Natural mother [facility] Social History Social Habit Start Date Stop Date Quantity Comments Source History SDOH [facility] Alcohol Comment Hospital History SDOH [facility] Alcohol Std Hospital Drinks History SDOH [facility] Alcohol Binge Hospital Exposure to 2022-07-06 2022-07-16 Not sure [facility] SARS-CoV-2 00:00:00 09:16:00 (event) Social History 2022-01-12 2022-01-[address] [facility] alma 00:39:44 00:39:44 Alcohol intake 2021-10-26 2021-10-26 Current drinker [facility] 00:00:00 00:00:00 of alcohol Hospital (finding) History SDOH 2020-09-22 2020-09-22 1 [facility] Alcohol Frequency 00:00:00 00:00:00 Hospita l Tobacco use and 2019-04-16 2019-04-16 Smokeless tobacco [facility] exposure 00:00:00 00:00:00 non-user Hospital Sex Assigned At [birth year] [facility] 00:00:00 00:00:00 Smoking Status Start Date Stop Date Source Social History 2019-07-31 04:36:04 [facility] Her reyna Never smoked tobacco [facility] Medications Ordered Filled Start Stop Current Ordering Indication Dosage Frequency Signature Comments Components Source Medication Medication Date Date Medication? Clinician (SIG) Name Name deferasirox 2021-08 Yes [id number] TAKE 3 [facility] (Jadenu) 2-16 TABLET Health 360 MG 00:00: DAILY tablet 00 HYDROcodone 2021-08 Yes [id number] 1{tbl} Q6H Take 1 UT -acetaminop 2-16 tablet by [facility] theodore (Dexter) 00:00: mouth 10-325 MG 00 every 6 tablet (six) hours if needed for severe pain. morphine 2021-0 No 4 mg, Memoria Sulfate 9- Route: l 16:51: IVP, Drug Mcbee form: INJ, ONCE, Dosing Weight 68.3, kg, Priority: STAT, Start date: 04/19/22 11:51:00 CDT, Stop date: 04/19/22 11:51:00 CDT morphine 2-0 No 4 mg, Memoria Sulfate 9- Route: l 16:51: IVP, Drug Mcbee 00 form: INJ, ONCE, Dosing Weight 68.3, kg, Priority: STAT, Start date: 04/19/22 11:51:00 CDT, Stop date: 04/19/22 11:51:00 CDT morphine 2-0 No 4 mg, Memoria Sulfate 9- Route: l 16:51: IVP, Drug Mcbee form: INJ, ONCE, Dosing Weight 68.3, kg, Priority: STAT, Start date: 04/19/22 11:51:00 CDT, Stop date: 04/19/22 11:51:00 CDT morphine 2-0 No 4 mg, Memoria Sulfate 9-19 Route: l 16:51: IVP, Drug form: INJ, ONCE, Dosing Weight 68.3, kg, Priority: STAT, Start date: 04/19/22 11:51:00 CDT, Stop date: 04/19/22 11:51:00 CDT Dilaudid No Notes: Memoria 04-19 (Same as: l 16:29: Dilaudid) ketOROLAC No 4 days Memor ia 15 mg/mL 04-19 l injectable 16:29: MEDICATION H ermann solution 00 WASTE Product Size: 30 mg Product Wasted: ___ mg Dilaudid No Notes: Memoria 04-19 (Same as: l 16:29: Dilaudid) ketOROLAC No 4 days Memor ia 15 mg/mL 04-19 l injectable 16:29: MEDICATION H ermann solution 00 WASTE Product Size: 30 mg Product Wasted: ___ mg Dilaudid No Notes: Memoria 04-19 (Same as: l 16:29: Dilaudid) ketOROLAC No 4 days Memor ia 15 mg/mL 04-19 l injectable 16:29: MEDICATION H ermann solution 00 WASTE Product Size: 30 mg Product Wasted: ___ mg Dilaudid No Notes: Memoria 04-19 (Same as: l 16:29: Dilaudid) ketOROLAC No 4 days Memor ia 15 mg/mL 04-19 l injectable 16:29: MEDICATION H ermann solution 00 WASTE Product Size: 30 mg Product Wasted: ___ mg morphine No Notes: Memoria Sulfate 04-19 (Same l 15:06: as:MORPhin Stiven 00 e Sulfate) morphine No Notes: Memoria Sulfate 04-19 (Same l 15:06: as:MORPhin Mcbee 00 e Sulfate) morphine No Notes: Memoria Sulfate 04-19 (Same l 15:06: as:MORPhin Stiven 00 e Sulfate) morphine No Notes: Memoria Sulfate 9-19 (Same l 15:06: as:MORPhin Mcbee 00 e Sulfate) morphine No Notes: Memoria Sulfate 9-19 (Same l 12:09: as:MORPhin Mcbee 00 e Sulfate) Zofran No Notes: Memoria [...] Memoria Sulfate - (Same l 12:09: as:MORPhin Stiven 00 e [...] CDT, 0 morphine No Notes: Memoria Sulfate 9-19 (Same l 12:09: as:MORPhin Mcbee 00 e Sulfate) Zofran No Notes: Memoria [...] CDT, 0 morphine No Notes: Memoria Sulfate 04-19 (Same l 12:09: as:MORPhin Mcbee 00 e Sulfate) Zofran No Notes: Memoria - (Same as: l 12:09: Zofran) Mcbee 00 MEDICATION WASTE Product Size: 4 mg [...] % 21:00: 20:15 infusion 00 :00 sodium 2021-2021- No 500mL/h 500 mL/hr, U T chloride 04-06 Intravenou Heal th 0.9 % 21:00: 20:15 s, Once, infusion 00 :00 On Tue04/06/22 at 1600, For 1 dose
In dications: sickle cell pain crisis HYDROcodone 0 Yes [id number] 1{tbl} Q6H Take 1 UT -acetaminop 8-17 tablet by [facility] hen (Dexter) 00:00: mouth 10-325 MG 00 every 6 tablet (six) hours if needed for severe pain. HYDROcodone Yes [id number] 1{tbl} Q6H Take 1 UT -acetaminop 8-17 tablet by [facility] hen (Dexter) 00:00: mouth 10-325 MG 00 every 6 tablet (six) hours if needed for severe pain. HYDROcodone 2021- No [id number] 1{tbl} Q6H Take 1 UT -acetaminop 8-15 08-17 tablet by [facility] (Dexter) 00:00: 00:00 mouth 10-325 MG 00 :00 every 6 tablet (six) hours if needed for severe pain. hydroxyurea Yes [id number] TAKE 4 UT (Hydrea) 8-12 CAPSULES Health 500 MG 00:00: DAILY capsule 00 methocarbam 0 Yes [id number] TAKE 1 UT ol 8-12 TABLET Health (Robaxin) 00:00: DAILY 500 MG 00 NEEDED FOR tablet SPASM. hydroxyurea 0 Yes [id number] TAKE 4 UT (Hydrea) 8-12 CAPSULES Health 500 MG 00:00: DAILY capsule 00 methocarbam 0 Yes [id number] TAKE 1 UT ol 8-12 TABLET Health (Robaxin) 00:00: DAILY 500 MG 00 NEEDED FOR tablet SPASM. gabapentin 0 Yes [id number] 300mg Take 1 UT (Neurontin) 8-12 capsule Healt h 300 MG 00:00: (300 mg capsule 00 total) by mouth every night. hydroxyurea 0 Yes [id number] TAKE 4 UT (Hydrea) 8-12 CAPSULES Health 500 MG 00:00: DAILY capsule 00 methocarbam 0 Yes [id number] TAKE 1 UT ol 8-12 TABLET Health (Robaxin) 00:00: DAILY 500 MG 00 NEEDED FOR tablet SPASM. gabapentin 2021- No [id number] 300mg Take 1 UT (Neurontin) 8-12 10-12 capsule Heal th 300 MG 00:00: 04:59 (300 mg capsule 00 :00 total) by mouth every night. gabapentin 2021- No [id number] 300mg Take 1 UT (Neurontin) 03-12 capsule Heal th 300 MG 00:00: 04:59 (300 mg capsule 00 :00 total) by mouth every night. levofloxaci Yes 750 mg = 1 Memoria n 750 mg 6-19 tab, PO, l oral tablet 15:12: Daily, X 5 Stiven 00 day, # 5 tab, 0 Refill(s), Pharmacy: [facility] #[id number], 167.64, cm, 01/11/22 19:35:00 CDT, Height, 69.8, kg, 01/11/22 19:35:00 CDT, Weight tramadol 50 Yes 50 mg = 1 M emoria mg oral 6-19 tab, PO, l tablet 15:12: Q6H, X 7 Mcbee day, # 28 tab, 0 Refill(s), Pharmacy: [facility] #[id number], 167.64, cm, 01/11/22 19:35:00 CDT, Height, 69.8, kg, 01/11/22 19:35:00 CDT, Weight senna 8.6 Yes 17.2 mg = Mem oria mg oral 6-19 2 tab, PO, l tablet 15:12: Bedtime, X Mignon nn 7 day, # 14 tab, 0 Refill(s), Pharmacy: [facility] #[id number], 167.64, cm, 01/11/22 19:35:00 CDT, Height, 69.8, kg, 01/11/22 19:35:00 CDT, Weight levofloxaci Yes 750 mg = 1 Memoria n 750 mg 6-19 tab, PO, l oral tablet 15:12: Daily, X 5 Stiven day, # 5 tab, 0 Refill(s), Pharmacy: [facility] #[id number], 167.64, cm, 01/11/22 19:35:00 CDT, Height, 69.8, kg, 01/11/22 19:35:00 CDT, Weight tramadol 50 2022-0 Yes 50 mg = 1 M emoria mg oral 6-19 tab, PO, l tablet 15:12: Q6H, X 7 Stiven 00 day, # 28 tab, 0 Refill(s), Pharmacy: [facility] #[id number], 167.64, cm, 01/11/22 19:35:00 CDT, Height, 69.8, kg, 01/11/22 19:35:00 CDT, Weight senna 8.6 Yes 17.2 mg = Mem oria mg oral 6-19 2 tab, PO, l tablet 15:12: Bedtime, X Mignon nn 00 7 day, # 14 tab, 0 Refill(s), Pharmacy: [facility] #[id number], 167.64, cm, 01/11/22 19:35:00 CDT, Height, 69.8, kg, 01/11/22 19:35:00 CDT, Weight levofloxaci Yes 750 mg = 1 Memoria n 750 mg 6-19 tab, PO, l oral tablet 15:12: Daily, X 5 Mcbee 00 day, # 5 tab, 0 Refill(s), Pharmacy: [facility] #[id number], 167.64, cm, 01/11/22 19:35:00 CDT, Height, 69.8, kg, 01/11/22 19:35:00 CDT, Weight tramadol 50 Yes 50 mg = 1 M emoria mg oral 6-19 tab, PO, l tablet 15:12: Q6H, X 7 Stiven 00 day, # 28 tab, 0 Refill(s), Pharmacy: [facility] #[id number], 167.64, cm, 01/11/22 19:35:00 CDT, Height, 69.8, kg, 01/11/22 19:35:00 CDT, Weight senna 8.6 Yes 17.2 mg = Mem oria mg oral 6-19 2 tab, PO, l tablet 15:12: Bedtime, X Mignon nn 00 7 day, # 14 tab, 0 Refill(s), Pharmacy: [facility] #[id number], 167.64, cm, 01/11/22 19:35:00 CDT, Height, 69.8, kg, 01/11/22 19:35:00 CDT, Weight levofloxaci 0 Yes 750 mg = 1 Memoria n 750 mg 6-19 tab, PO, l oral tablet 15:12: Daily, X 5 Mcbee 00 day, # 5 tab, 0 Refill(s), Pharmacy: [facility] #[id number], 167.64, cm, 01/11/22 19:35:00 CDT, Height, 69.8, kg, 01/11/22 19:35:00 CDT, Weight tramadol 50 0 Yes 50 mg = 1 M emoria mg oral 6-19 tab, PO, l tablet 15:12: Q6H, X 7 Mcbee 00 day, # 28 tab, 0 Refill(s), Pharmacy: [facility] #[id number], 167.64, cm, 01/11/22 19:35:00 CDT, Height, 69.8, kg, 01/11/22 19:35:00 CDT, Weight senna 8.6 Yes 17.2 mg = Mem oria mg oral 6-19 2 tab, PO, l tablet 15:12: Bedtime, X Mignon nn 00 7 day, # 14 tab, 0 Refill(s), Pharmacy: [facility] #[id number], 167.64, cm, 01/11/22 19:35:00 CDT, Height, 69.8, kg, 01/11/22 19:35:00 CDT, Weight Dexter 0 Yes 1 tab, PO, Memori a 10/325 oral 6-19 Q6H, PRN l tablet 15:11: Other -See Mignon nn 00 Comment, X 7 day, # 30 tab, 0 Refill(s), [id number], 167.64, cm, 01/11/22 19:35:00 CDT, Height, 69.8, kg, 01/11/22 19:35:00 CDT, Weight Robaxin 500 Yes 500 mg = 1 Memoria mg oral 6-19 tab, PO, l tablet 15:11: Q4H, PRN Mcbee 00 Muscle Spasms, X 5 day, # 60 tab, 0 Refill(s), Pharmacy: [facility] #[id number], 167.64, cm, 01/11/22 19:35:00 CDT, Height, 69.8, kg, 01/11/22 19:35:00 CDT, Weight codeine-gua 2021-0 Yes 10 mL, PO, Memoria iFENesin 10 6-19 Q4H, PRN l mg-100 mg/5 15:11: Cough, X 3 Stiven mL oral 00 day, # 120 syrup mL, 0 Refill(s), Pharmacy: [facility] #[id number], 167.64, cm, 01/11/22 19:35:00 CDT, Height, 69.8, kg, 01/11/22 19:35:00 CDT, Weight Dexter 0 Yes 1 tab, PO, Memori a 10/325 oral 6-19 Q6H, PRN l tablet 15:11: Other -See Mignon nn 00 Comment, X 7 day, # 30 tab, 0 Refill(s), Pharmacy: [facility] #[id number], 167.64, cm, 01/11/22 19:35:00 CDT, Height, 69.8, kg, 01/11/22 19:35:00 CDT, Weight Robaxin 500 2021-0 Yes 500 mg = 1 Memoria mg oral 6-19 tab, PO, l tablet 15:11: Q4H, PRN Mcbee 00 Muscle Spasms, X 5 day, # 60 tab, 0 Refill(s), Pharmacy: [facility] #[id number], 167.64, cm, 01/11/22 19:35:00 CDT, Height, 69.8, kg, 01/11/22 19:35:00 CDT, Weight codeine-gua 2021-0 Yes 10 mL, PO, Memoria iFENesin 10 6-19 Q4H, PRN l mg-100 mg/5 15:11: Cough, X 3 Mcbee mL oral 00 day, # 120 syrup mL, 0 Refill(s), Pharmacy: [facility] #[id number], 167.64, cm, 01/11/22 19:35:00 CDT, Height, 69.8, kg, 01/11/22 19:35:00 CDT, Weight Dexter 2022-0 Yes 1 tab, PO, Memori a 10/325 oral 6-19 Q6H, PRN l tablet 15:11: Other -See Mignon nn 00 Comment, X 7 day, # 30 tab, 0 Refill(s), Pharmacy: [facility] #[id number], 167.64, cm, 01/11/22 19:35:00 CDT, Height, 69.8, kg, 01/11/22 19:35:00 CDT, Weight Robaxin 500 0 Yes 500 mg = 1 Memoria mg oral 6-19 tab, PO, l tablet 15:11: Q4H, PRN Stiven 00 Muscle Spasms, X 5 day, # 60 tab, 0 Refill(s), Pharmacy: [facility] #[id number], 167.64, cm, 01/11/22 19:35:00 CDT, Height, 69.8, kg, 01/11/22 19:35:00 CDT, Weight codeine-gua Yes 10 mL, PO, Memoria iFENesin 10 6-19 Q4H, PRN l mg-100 mg/5 15:11: Cough, X 3 Mcbee mL oral 00 day, # 120 syrup mL, 0 Refill(s), Pharmacy: [facility] #[id number], 167.64, cm, 01/11/22 19:35:00 CDT, Height, 69.8, kg, 01/11/22 19:35:00 CDT, Weight Dexter 0 Yes 1 tab, PO, Memori a 10/325 oral 6-19 Q6H, PRN l tablet 15:11: Other -See Mignon nn Comment, X 7 day, # 30 tab, 0 Refill(s), Pharmacy: [facility] #[id number], 167.64, cm, 01/11/22 19:35:00 CDT, Height, 69.8, kg, 01/11/22 19:35:00 CDT, Weight Robaxin 500 0 Yes 500 mg = 1 Memoria mg oral 6-19 tab, PO, l tablet 15:11: Q4H, PRN Mcbee 00 Muscle Spasms, X 5 day, # 60 tab, 0 Refill(s), Pharmacy: [facility] #[id number], 167.64, cm, 01/11/22 19:35:00 CDT, Height, 69.8, kg, 01/11/22 19:35:00 CDT, Weight codeine-gua Yes 10 mL, PO, Memoria iFENesin 10 6-19 Q4H, PRN l mg-100 mg/5 15:11: Cough, X 3 Mcbee mL oral 00 day, # 120 syrup mL, 0 Refill(s), Pharmacy: [facility] #[id number], 167.64, cm, 01/11/22 19:35:00 CDT, Height, 69.8, [...] sherlyn 6-17 (Same As: l 13:39: Imitrex) Mcbee 00 potassium No Notes: Memori a chloride 6-16 [...] s with feeding tube less than 14 Italian (Dobhoff, J-tube etc) and pediatric and patients. potassium No Notes: Memori a phosphate-s 6-16 (Same as: l odium 19:39: Phos-NaK) Mcbee phosphate 00 Each 1.5 250 mg-280 gm [...] 19:39: Mag-Ox Stiven 00 400) Magnesium oxide 458dg=241c g elemental magnesium Dose=____m g magnesium oxide (___mg elemental magnesium) calcium No Notes: Memoria gluconate 6-16 WASTE: F/P l 19:39: - Sink; E Mcbee 00 - Municipal Trash Bin calcium No [...] s with feeding tube less than 14 Italian (Dobhoff, J-tube etc) and pediatric and patients. potassium No Notes: Memori a phosphate-s -16 (Same as: l odium 19:39: Phos-NaK) Stiven phosphate 00 Each 1.5 250 mg-280 gm pkt has mg-160 mg 250mg oral powder phosphorou for s. Mix reconstitut w/2.5oz ion water and stir. potassium No Notes: Memori a phosphate + 6-16 (Same as: l Sodium 19:39: K Mcbee Chloride 00 Phosphate. 0.9% IV 250 ) [...] WASTE: F/P l 19:39: - Sink; E Mcbee 00 - Municipal Trash Bin magnesium No Notes: Memori a oxide 6-16 (Same as: l 19:39: Mag-Ox Mcbee 00 400) Magnesium oxide 286cv=041m g elemental magnesium Dose=____m g magnesium oxide (___mg elemental magnesium) calcium No Notes: Memoria gluconate 6-16 WASTE: F/P l 19:39: - Sink; E Mcbee 00 - Municipal Trash Bin calcium No Notes: Memoria gluconate + 6-16 WASTE: F/P l Sodium 19:39: - Sink; E Sang n Chloride 00 - 0.9% IV 100 Municipal mL Trash Bin potassium No Notes: Memori a chloride 6-16 (Same as: l 19:39: K-Dur 20) Mcbee 00 "Do Not Crush" Give with food and full glass of water For patients unable to swallow tablet, dissolve in one half glass of water. Allow about 2 minutes for the tablets to disintegra te. Stir before giving to prepare slurry and administer . Please exclude Patient s with feeding tube less than 14 Italian (Dobhoff, J-tube etc) and pediatric and patients. potassium No Notes: Memori a phosphate-s -16 (Same as: l odium 19:39: Phos-NaK) Mcbee phosphate 00 Each 1.5 250 mg-280 gm [...] oxide 6-16 (Same as: l 19:39: Mag-Ox Mcbee 00 400) Magnesium oxide 767wo=603h g elemental magnesium Dose=____m g magnesium oxide (___mg elemental magnesium) calcium No Notes: Memoria gluconate 6-16 WASTE: F/P l 19:39: - Sink; E Mcbee 00 - Municipal Trash Bin calcium No [...] s with feeding tube less than 14 Italian (Dobhoff, J-tube etc) and pediatric and patients. potassium No Notes: Memori a phosphate-s 6-16 (Same as: l odium 19:39: Phos-NaK) Stiven phosphate 00 Each 1.5 250 mg-280 gm pkt has mg-160 mg 250mg oral powder phosphorou for s. Mix reconstitut w/2.5oz ion water and stir. potassium No Notes: Memori a phosphate + 6-16 (Same as: l Sodium 19:39: K Mcbee Chloride 00 Phosphate. 0.9% IV 250 ) [...] F/P l 19:39: - Sink; E Stiven - Municipal Trash Bin magnesium No Notes: Memori a oxide 6-16 (Same as: l 19:39: Mag-Ox Mcbee 00 400) Magnesium oxide 810fm=891z g elemental magnesium Dose=____m g magnesium oxide (___mg elemental magnesium) calcium No Notes: Memoria gluconate 6-16 WASTE: F/P l 19:39: - Sink; E Mcbee 00 - Municipal Trash Bin calcium No Notes: Memoria gluconate + 16 WASTE: F/P l Sodium 19:39: - Sink; E Sang n Chloride 00 - 0.9% IV 100 Municipal mL Trash Bin simethicone No Notes: Fred sherlyn 6-16 (Same as: l 19:38: Mylicon) codeine-gua No Notes: Fred sherlyn iFENesin 10 6-16 (Same As: l mg-100 mg/5 19:38: Robitussin Mcbee mL oral 00 AC) syrup diphenhydrA No Notes: Fred sherlyn MINE 6-16 (Same as: l 19:38: Benadryl) melatonin No Notes: Memori a 6-16 (Same as: l 19:38: Melatonin) Stiven 00 simethicone No Notes: Fred sherlyn 6-16 (Same as: l 19:38: Mylicon) codeine-gua No Notes: Fred sherlyn iFENesin 10 6-16 (Same As: l mg-100 mg/5 19:38: Robitussin Mcbee mL oral 00 AC) syrup diphenhydrA No Notes: Fred sherlyn MINE 6-16 (Same as: l 19:38: Benadryl) melatonin No Notes: Memori a 6-16 (Same as: l 19:38: Melatonin) Stiven simethicone No Notes: Fred sherlyn 6-16 (Same [...] as: l 19:38: Mylicon) codeine-gua No Notes: Frde sherlyn iFENesin 10 6-16 (Same As: l mg-100 mg/5 19:38: Robitussin Stiven mL oral 00 AC) syrup diphenhydrA No Notes: Fred sherlyn MINE 6-16 (Same as: l 19:38: Benadryl) melatonin No Notes: Memori a 6-16 (Same as: l 19:38: Melatonin) Levaquin No Notes: Do Fred sherlyn 6-16 not give l 13:00: w/antacids Mcbee 00 , dairy pdt & minerals Take 1 hr before or 2 hr after dairy pdt (Same as:Levaqui n) Levaquin No Notes: Do Fred sherlyn 6-16 not give l 13:00: w/antacids Mcbee 00 , dairy pdt & minerals Take 1 hr before or 2 hr after dairy pdt (Same as:Levaqui n) Levaquin No Notes: Do Fred sherlyn 6-16 not give l 13:00: w/antacids Mcbee 00 , dairy pdt & minerals Take 1 hr before or 2 hr after dairy pdt (Same as:Levaqui n) Levaquin No Notes: Do Fred sherlyn 6-16 not give l 13:00: w/antacids Mcbee 00 , dairy pdt & minerals Take 1 hr before or 2 hr after dairy pdt (Same as:Levaqui n) hydroxyurea 2022-0 No Notes: Fred sherlyn 6-15 (Same as: l 14:00: Hydrea) Hazardous Drug Group 1:Antineop lastic Hazardous Drug -- Refer to safe handling procedure PPE Matrix WASTE: F/P - Black; E Yellow "Do Not Crush" hydroxyurea 2021-0 No Notes: Fred sherlyn 6-15 (Same as: l 14:00: Hydrea) Hazardous Drug Group 1:Antineop lastic Hazardous Drug -- Refer to safe handling procedure PPE Matrix WASTE: F/P - Black; E Yellow "Do Not Crush" hydroxyurea 2021-0 No Notes: Fred sherlyn 6-15 (Same as: l 14:00: Hydrea) Hazardous Drug Group 1:Antineop lastic Hazardous Drug -- Refer to safe handling procedure PPE Matrix WASTE: F/P - Black; E Yellow "Do Not Crush" hydroxyurea 2021-0 No Notes: Fred sherlyn 6-15 (Same as: l 14:00: Hydrea) Hazardous Drug [facility] 1:Antineop lastic Hazardous Drug -- Refer to safe handling procedure PPE Matrix WASTE: F/P - Black; E Yellow "Do Not Crush" sodium 2022-0 No 2 gm, 2 Memoria chloride 1 6-15 tab, l gm oral 13:00: Route: PO, Herm shakira tablet 00 Drug form: TAB, [id number], Dosing Weight 69.8, kg, Start date: 01/13/22 8:00:00 CDT, Duration: 30 day, Stop date: 02/11/22 20:00:00 CDT, 0 sodium 2022-0 No 2 gm, 2 Memoria chloride 1 6-15 tab, l gm oral 13:00: Route: PO, Herm shakira tablet 00 Drug form: TAB, [id number], Dosing Weight 69.8, kg, Start date: 01/13/22 8:00:00 CDT, Duration: 30 day, Stop date: 02/11/22 20:00:00 CDT, 0 sodium 2022-0 No 2 gm, 2 Memoria chloride 1 6-15 tab, l gm oral 13:00: Route: PO, Herm shakira tablet 00 Drug form: TAB, [id number], Dosing Weight 69.8, kg, Start date: 01/13/22 8:00:00 CDT, Duration: 30 day, Stop date: 02/11/22 20:00:00 CDT, 0 sodium 2022-0 No 2 gm, 2 Memoria chloride 1 6-15 tab, l gm oral 13:00: Route: PO, Herm shakira tablet 00 Drug form: TAB, [id number], Dosing Weight 69.8, kg, Start date: 01/13/22 [...] Rate: 40 l 0.45% IV 16:27: ml/hr, Mcbee 1,000 mL 00 Infuse over: 25 hr, Route: IV, Dosing Weight 69.8 kg, Total Volume: 1,000, Start date: 01/12/22 11:27:00 CDT, Duration: 30 day, Stop date: 02/11/22 11:26:00 CDT, BSA: 1.82 m2, 0 Sodium 2022-0 No 1,000 mL, Memori a Chloride 6-14 Rate: 40 l 0.45% IV 16:27: ml/hr, Mcbee 1,000 mL 00 Infuse over: 25 hr, Route: IV, Dosing Weight 69.8 kg, Total Volume: 1,000, Start date: 01/12/22 11:27:00 CDT, Duration: 30 day, Stop date: 02/11/22 11:26:00 CDT, BSA: 1.82 m2, 0 Sodium 2022-0 No 1,000 mL, Memori a Chloride 6-14 Rate: 40 l 0.45% IV 16:27: ml/hr, Mcbee 1,000 mL 00 Infuse over: 25 hr, Route: IV, Dosing Weight 69.8 kg, Total Volume: 1,000, Start date: 01/12/22 11:27:00 CDT, Duration: 30 day, Stop date: 02/11/22 11:26:00 CDT, BSA: 1.82 m2, 0 Sodium No 1,000 mL, Memori a Chloride 6-14 Rate: 40 l 0.45% IV 16:27: ml/hr, Mcbee 1,000 mL 00 Infuse over: 25 hr, [...] Notes: Memoria 6-14 (Same l 14:18: as:Robaxin Mcbee 00 ) Robaxin No Notes: Memoria 6-14 (Same l 14:18: as:Robaxin Stiven 00 ) Robaxin No Notes: Memoria 6-14 (Same l 14:18: as:Robaxin Stiven 00 ) Robaxin No Notes: Memoria 6-14 (Same l 14:18: as:Robaxin Stiven 00 ) Vitamin D2 Yes 50,000 Memor ia 6-14 units, l 02:53: qWeek, 0 Mcbee 00 Refill(s) Vitamin D2 2021-0 Yes 50,000 Memor ia 6-14 units, l 02:53: qWeek, 0 Stiven 00 Refill(s) Vitamin D2 2021-0 Yes 50,000 Memor ia 6-14 units, l 02:53: qWeek, 0 Stiven 00 Refill(s) Vitamin D2 2021-0 Yes 50,000 Memor ia 6-14 units, l 02:53: qWeek, 0 Mcbee 00 Refill(s) SUMAtriptan 2021-0 Yes 25 mg = 1 M emoria 25 mg oral 6-14 tab, PO, l tablet 02:50: PRN, 0 Stiven 00 Refill(s) SUMAtriptan 2021-0 Yes 25 mg = 1 M emoria 25 mg oral 6-14 tab, PO, l tablet 02:50: PRN, 0 Mcbee 00 Refill(s) SUMAtriptan 2021-0 Yes 25 mg = 1 M emoria 25 mg oral 6-14 tab, PO, l tablet 02:50: PRN, 0 Stiven 00 Refill(s) SUMAtriptan 2021-0 Yes 25 mg = 1 M emoria 25 mg oral 6-14 tab, PO, l tablet 02:50: PRN, 0 Stiven 00 Refill(s) hydroxyurea 2021-0 Yes 4 capsule, Memoria 500 mg oral 6-14 PO, Daily, l capsule 02:49: 0 Mcbee 00 Refill(s) hydroxyurea 2021-0 Yes 4 capsule, Memoria 500 mg oral 6-14 PO, Daily, l capsule 02:49: 0 Mcbee 00 Refill(s) hydroxyurea 2021-0 Yes 4 capsule, Memoria 500 mg oral 6-14 PO, Daily, l capsule 02:49: 0 Mcbee 00 Refill(s) hydroxyurea 2021-0 Yes 4 capsule, Memoria 500 mg oral 6-14 PO, Daily, l capsule 02:49: 0 Mcbee 00 Refill(s) nortriptyli 2021-0 Yes 10 mg = 1 M emoria ne 10 mg 6-14 cap, PO, l oral 02:46: Bedtime, 0 Stiven capsule 00 Refill(s) gabapentin 2021-0 Yes 300 mg = 1 M emoria 300 mg oral 6-14 cap, l capsule 02:46: Daily, 0 Sang n 00 Refill(s) nortriptyli 2-0 Yes 10 mg = 1 M emoria ne 10 mg 6-14 cap, PO, l oral 02:46: Bedtime, 0 Stiven capsule 00 Refill(s) gabapentin 2022-0 Yes 300 mg = 1 M emoria [...] 02:46: Daily, 0 Sang n 00 Refill(s) Dexter 2021-0 No 1 tab, PO, Memori a 10/325 oral 6-14 Q6H, PRN l tablet 02:44: Other -See Mignon nn 00 Comment, 0 Refill(s) Dexter 2021-0 No 1 tab, PO, Memori a 10/325 oral 6-14 Q6H, PRN l tablet 02:44: Other -See Mignon nn 00 Comment, 0 Refill(s) Dexter 2021-0 No 1 tab, PO, Memori a 10/325 oral 6-14 Q6H, PRN l tablet 02:44: Other -See Mignon nn 00 Comment, 0 Refill(s) Dexter 2021-0 No 1 tab, PO, Memori a 10/325 oral 6-14 Q6H, PRN l tablet 02:44: Other -See Mignon nn 00 Comment, 0 Refill(s) Robaxin 500 No 500 mg = 1 Memoria mg oral 6-14 tab, PO, l tablet 02:43: Q4H, PRN Stiven 00 Muscle Spasms, 0 Refill(s) Robaxin 500 0 No 500 mg = 1 Memoria mg [...] a 6-14 Daily, 0 l 02:42: Refill(s) Mcbee 00 folic acid 0 Yes 1 mg, Memori a 6-14 Daily, 0 l 02:42: Refill(s) Mcbee 00 folic acid 0 Yes 1 mg, Memori a 6-14 Daily, 0 l 02:42: Refill(s) Mcbee 00 folic acid 0 Yes 1 mg, Memori a 6-14 Daily, 0 l 02:42: Refill(s) Stiven 00 Senokot S No Notes: Memori a oral tablet 6-14 (Same as l 02:00: Senokot-S) Mcbee 00 Equiv. to Concepcion-Colac e. Senokot S No Notes: Memori a oral tablet 6-14 (Same as l 02:00: Senokot-S) Tsiven 00 Equiv. to Concepcion-Colac e. Senokot S No Notes: Memori a oral tablet 6-14 (Same as l 02:00: Senokot-S) Mcbee 00 Equiv. to Concepcion-Colac e. Senokot S [...] 4 days. Fred sherlyn 6-13 l 11:00: Mcbee 00 ketOROLAC No 4 days. Fred sherlyn 6-13 l 11:00: Mcbee 00 ketOROLAC No 4 days. Fred sherlyn 6-13 l 11:00: Stiven 00 ketOROLAC No 4 days. Fred sherlyn 6-13 l 11:00: Stiven No 250 mL, Memoria (bolus) IV 6-13 Rate: 999 l 10:03: ml/hr, Mcbee 00 Infuse over: 0.3 hr, Route: IVPB, Total Volume: 250, Start date: 01/11/22 5:03:00 CDT, Duration: 30 day, Stop date: 02/10/22 5:02:00 CDT, PRN Blood Glucose Results, 0 No 250 mL, Memoria (bolus) IV 6-13 Rate: 999 l 10:03: ml/hr, Stiven 00 Infuse over: 0.3 hr, Route: IVPB, Total Volume: 250, Start date: 01/11/22 5:03:00 CDT, Duration: 30 day, Stop date: 02/10/22 5:02:00 CDT, PRN Blood Glucose Results, 0 D1W 2021-0 No 250 mL, Memoria (bolus) IV 6-13 Rate: 999 l 10:03: ml/hr, Mcbee 00 Infuse over: 0.3 hr, Route: IVPB, Total Volume: 250, Start date: 01/11/22 5:03:00 CDT, Duration: 30 day, Stop date: 02/10/22 5:02:00 CDT, PRN Blood Glucose Results, 0 D10W 2021-0 No 250 mL, Memoria (bolus) IV 6-13 Rate: 999 l 10:03: ml/hr, Stiven 00 Infuse over: 0.3 hr, Route: IVPB, Total Volume: 250, Start date: 01/11/22 5:03:00 CDT, Duration: 30 day, Stop date: 02/10/22 5:02:00 CDT, PRN Blood Glucose Results, 0 D1W 2021-0 No 125 mL, Memoria (bolus) IV 6-13 Rate: l 09:48: 416.67 Mcbee 00 ml/hr, Infuse over: 0.3 hr, Route: IVPB, Total Volume: 125, Start date: 01/11/22 4:48:00 CDT, Duration: 30 day, Stop date: 02/10/22 4:47:00 CDT, PRN Blood Glucose Results, 0 D12021-0 No 125 mL, Memoria (bolus) IV 6-13 Rate: l 09:48: 416.67 Stiven 00 ml/hr, Infuse over: 0.3 hr, Route: IVPB, Total Volume: 125, Start date: 01/11/22 4:48:00 CDT, Duration: 30 day, Stop date: 02/10/22 4:47:00 CDT, PRN Blood Glucose Results, 0 D10W 2021-0 No 125 mL, Memoria (bolus) IV 6-13 Rate: l 09:48: 416.67 Mcbee 00 ml/hr, Infuse over: 0.3 hr, Route: IVPB, Total Volume: 125, Start date: 01/11/22 4:48:00 CDT, Duration: 30 day, Stop date: 02/10/22 4:47:00 CDT, PRN Blood Glucose Results, 0 D10W 2021-0 No 125 mL, Memoria (bolus) IV 6- Rate: l 09:48: 416.67 Mcbee 00 ml/hr, Infuse over: 0.3 hr, Route: IVPB, Total Volume: 125, Start date: 01/11/22 4:48:00 CDT, Duration: 30 day, Stop date: 02/10/22 4:47:00 CDT, PRN Blood Glucose Results, 0 Dextrose 2021-0 No 25 mL, Memoria 50% Syringe 6- Route: l (D50W) 09:34: IVP, Mcbee 00 Dosing Weight 68.001, kg, PRN, PRN Blood Glucose Results, Start date: 01/11/22 4:34:00 CDT, Duration: 30 day, Stop date: 02/10/22 4:33:00 CDT glucagon 2021-0 No 1 mg, Memoria 6-13 Route: IM, l 09:34: Drug form: PDR/INJ, [...] - not exceed l 09:34: 4 gm/day. (Same as: Tylenol) Dextrose 2021-0 No 25 mL, Memoria 50% Syringe - Route: l (D50W) 09:34: IVP, Stiven Dosing Weight 68.001, kg, PRN, PRN Blood Glucose Results, Start date: 01/11/22 4:34:00 CDT, Duration: 30 day, Stop date: 02/10/22 4:33:00 CDT glucagon 2-0 No 1 mg, Memoria 6-13 Route: IM, l 09:34: Drug form: Mcbee 00 PDR/INJ, PRN, Dosing Weight 68.001, kg, PRN Blood Glucose Results, Start date: 01/11/22 4:34:00 CDT, Duration: 30 day, Stop date: 02/10/22 4:33:00 CDT, 0 ondansetron 2021-0 No Notes: Fred sherlyn 6-13 (Same as: l 09:34: Zofran) MEDICATION WASTE Product Size: 4 mg Product Wasted: ___ mg acetaminoph 2021-0 No Notes: Do M emoria en - not exceed l 09:34: 4 gm/day. (Same as: Tylenol) Dextrose 2021-0 No 25 mL, Memoria 50% Syringe 6-13 [...] Stop date: 02/10/22 4:33:00 CDT, 0 ondansetron 2021-0 No Notes: Fred sherlyn 6-13 (Same as: l 09:34: Zofran) MEDICATION WASTE Product Size: 4 mg Product Wasted: ___ mg acetaminoph 2021-0 No Notes: Do M emoria en -13 not exceed l 09:34: 4 gm/day. (Same as: Tylenol) Dextrose 2021-0 No 25 mL, Memoria 50% Syringe 6-13 Route: l (D50W) 09:34: IVP, Mcbee Dosing Weight 68.001, kg, PRN, PRN Blood Glucose Results, Start date: 01/11/22 4:34:00 CDT, Duration: 30 day, Stop date: 02/10/22 4:33:00 CDT glucagon No 1 mg, Memoria 6-13 Route: IM, [...] No 1,000 mL, Memori a Chloride - Rate: 125 l 0.45% IV 09:12: ml/hr, Stiven 1,000 mL 00 Infuse over: 8 hr, Route: IV, Dosing Weight 68.001 kg, Total Volume: 1,000, Start date: 01/11/22 4:12:00 CDT, Duration: 30 day, Stop date: 02/10/22 4:11:00 CDT, BSA: 1.79 m2, 0 acetaminoph No Notes: Fred sherlyn en-hydrocod 6-13 (Same as: l one 325 09:12: Dexter Mcbee mg-5 mg 00 325/5) Do oral tablet not exceed 4gm/day of acetaminop hen. hydromorpho No Notes: Fred sherlyn ne 6-13 (Same as: l 09:12: Dilaudid) Stiven 00 docusate No Notes: Memoria sodium 100 6-13 (Same as: l mg oral 09:12: Colace) Stiven capsule 00 (Do Not Crush) senna 8.6 No Notes: Memori a mg oral 6-13 (Same as: l tablet 09:12: Senokot) Stiven 00 Sodium No 1,000 mL, Memori a Chloride 6-13 Rate: 125 l 0.45% IV 09:12: ml/hr, Mcbee 1,000 mL 00 Infuse over: 8 hr, Route: IV, Dosing Weight 68.001 kg, Total Volume: 1,000, Start date: 01/11/22 4:12:00 CDT, Duration: 30 day, Stop date: 02/10/22 4:11:00 CDT, BSA: 1.79 m2, 0 acetaminoph No Notes: Fred sherlyn en-hydrocod 6-13 (Same as: l one 325 09:12: Dexter Mcbee mg-5 mg 00 325/5) Do oral tablet not exceed 4gm/day of acetaminop hen. hydromorpho No Notes: Fred sherlyn ne 6-13 (Same as: l 09:12: Dilaudid) Mcbee 00 docusate No Notes: Memoria sodium 100 6-13 (Same as: l mg oral 09:12: Colace) Mcbee capsule 00 (Do Not Crush) senna 8.6 No Notes: Memori a mg oral 6-13 (Same as: l tablet 09:12: Senokot) Stiven 00 Sodium No 1,000 mL, Memori a Chloride 6-13 Rate: 125 l 0.45% IV 09:12: ml/hr, Stiven 1,000 mL 00 Infuse over: 8 hr, Route: IV, Dosing Weight 68.001 kg, Total Volume: 1,000, Start date: 01/11/22 4:12:00 CDT, Duration: 30 day, Stop date: 02/10/22 4:11:00 CDT, BSA: 1.79 m2, 0 acetaminoph No Notes: Fred sherlyn en-hydrocod 6-13 (Same as: l one 325 09:12: Dexter Stiven mg-5 mg 00 325/5) Do oral tablet not exceed 4gm/day of acetaminop hen. hydromorpho No Notes: Fred sherlyn ne 6-13 (Same as: l 09:12: Dilaudid) Stiven 00 docusate No Notes: Memoria sodium 100 6-13 (Same as: l mg oral 09:12: Colace) Stiven capsule 00 (Do Not Crush) senna 8.6 No Notes: Memori a mg oral 6-13 (Same as: l tablet 09:12: Senokot) Stiven 00 Sodium No 1,000 mL, Memori a Chloride 6-13 Rate: 125 l 0.45% IV 09:12: ml/hr, Stiven 1,000 mL 00 Infuse over: 8 hr, Route: IV, Dosing Weight 68.001 kg, Total Volume: 1,000, Start date: 01/11/22 4:12:00 CDT, Duration: 30 day, Stop date: 02/10/22 4:11:00 CDT, BSA: 1.79 m2, 0 acetaminoph No Notes: Fred sherlyn en-hydrocod 6-13 (Same as: l one 325 09:12: Dexter Mcbee mg-5 mg 00 325/5) Do oral tablet [...] 6-13 Route: l 09:06: IVP, ONCE, Stiven Dosing Weight 68.001, kg, Priority: STAT, Start date: 01/11/22 4:06:00 CDT, Stop date: 01/11/22 4:06:00 CDT Dilaudid 2021-0 No 1 mg, Memoria 6-13 Route: l 09:06: IVP, ONCE, Mcbee Dosing Weight 68.001, kg, Priority: STAT, Start [...] sherlyn 6-13 (Same as: l 07:32: Zofran) Mcbee 00 MEDICATION WASTE Product Size: 4 mg [...] Memoria Sulfate 6-13 (Same l 07:32: as:MORPhin Mcbee 00 e Sulfate) ondansetron No Notes: Fred sherlyn 6-13 (Same as: l 07:32: Zofran) Stiven 00 MEDICATION WASTE Product Size: 4 mg Product Wasted: ___ mg Sodium 0 No 1,000 mL, Memori a Chloride 6-13 1000 l 0.9% 07:32: ml/hr, Mcbee (Bolus) IV 00 Infuse Over: 1 hr, [...] Chloride 6-13 1000 l 0.9% 07:32: ml/hr, Mcbee (Bolus) IV 00 Infuse Over: 1 hr, Route: IV, 1,000, Drug form: INJ, ONCE, Priority: STAT, Dosing Weight 68.001 kg, Start date: 01/11/22 2:32:00 CDT, Stop date: 01/11/22 2:32:00 CDT, 0 morphine No Notes: Memoria Sulfate 6-13 (Same l 07:32: as:MORPhin Stiven 00 e Sulfate) ondansetron No Notes: Fred sherlyn 6-13 (Same as: l 07:32: Zofran) Mcbee 00 MEDICATION WASTE Product Size: 4 mg Product Wasted: ___ mg Dilaudid No Notes: Memoria 6-12 (Same as: l 15:19: Dilaudid) Dilaudid No Notes: Memoria 6-12 (Same as: l 15:19: Dilaudid) Dilaudid No Notes: Memoria 6-12 (Same as: l 15:19: Dilaudid) Dilaudid No Notes: Memoria 6-12 (Same as: l 15:19: Dilaudid) NS (Bolus) No 1,000 mL, Me moria IV 6-12 1,000 l 13:19: ml/hr, Infuse Over: 1 hr, Route: IV, 1,000, Drug form: INJ, ONCE, Priority: STAT, Dosing Weight 69.2 kg, Start date: 01/10/22 8:19:00 CDT, Stop date: 01/10/22 8:19:00 CDT, 0 NS (Bolus) No 1,000 mL, Me moria IV 6-12 1,000 l 13:19: ml/hr, Infuse Over: 1 hr, Route: IV, 1,000, Drug form: INJ, ONCE, Priority: STAT, Dosing Weight 69.2 kg, Start date: 01/10/22 8:19:00 CDT, Stop date: 01/10/22 8:19:00 CDT, 0 NS (Bolus) No 1,000 mL, Me moria IV 6-12 1,000 l 13:19: ml/hr, Infuse Over: 1 hr, Route: IV, 1,000, Drug form: INJ, ONCE, Priority: STAT, Dosing Weight 69.2 kg, Start date: 01/10/22 8:19:00 CDT, Stop date: 01/10/22 8:19:00 CDT, 0 NS (Bolus) No 1,000 mL, Me moria IV -12 1,000 l 13:19: ml/hr, Infuse Over: 1 hr, Route: IV, 1,000, Drug form: INJ, ONCE, Priority: STAT, Dosing Weight 69.2 kg, Start date: 01/10/22 8:19:00 CDT, Stop date: 01/10/22 8:19:00 CDT, 0 Benadryl No Notes: Memoria 6-12 (Same as: l 13:18: Benadryl) Benadryl No Notes: Memoria 6-12 (Same as: l 13:18: Benadryl) Mcbee 00 Benadryl No Notes: Memoria 6-12 (Same as: l 13:18: Benadryl) Stiven 00 Benadryl No Notes: Memoria 6-12 (Same as: l 13:18: Benadryl) Mcbee 00 Saline No Notes: Memoria Flush 0.9% 6-12 Same as: l 13:07: BD Mcbee 00 Posiflush Sterile morphine No Notes: Memoria Sulfate 6-12 (Same l 13:07: as:MORPhin Mcbee 00 e Sulfate) ondansetron No Notes: Fred sherlyn 6-12 (Same as: l 13:07: Zofran) Mcbee 00 MEDICATION WASTE Product Size: 4 mg Product Wasted: ___ mg Saline No Notes: Memoria Flush 0.9% 6-12 Same as: l 13:07: BD Mcbee 00 Posiflush Sterile morphine No Notes: Memoria [...] Memoria Sulfate 6-12 (Same l 13:07: as:MORPhin Mcbee 00 e Sulfate) ondansetron No Notes: Fred sherlyn 6-12 (Same as: l 13:07: Zofran) Mcbee 00 MEDICATION WASTE Product Size: 4 mg Product Wasted: ___ mg Saline No Notes: Memoria Flush 0.9% 6-12 Same as: l 13:07: BD Mcbee 00 Posiflush Sterile morphine 0 No Notes: Memoria Sulfate 6-12 (Same l 13:07: as:MORPhin Mcbee 00 e Sulfate) ondansetron 2021-0 No Notes: Fred sherlyn 6-12 (Same as: l 13:07: Zofran) Mcbee 00 MEDICATION WASTE Product Size: 4 mg Product Wasted: ___ mg nortriptyli 2021-0 Yes [id number] TAKE 1 CAP UT ne 4-19 BY MOUTH Health (Pamelor) 00:00: AT BEDTIME 10 MG 00 FOR 1 capsule WEEK, THEN 2 CAPSULES FOR 1 WEEK, THEN 3 CAPSULES AT BEDTIMEE nortriptyli 2022-0 Yes [id number] TAKE 1 CAP UT ne 4-19 BY MOUTH Health (Pamelor) 00:00: AT BEDTIME 10 MG 00 FOR 1 capsule WEEK, THEN 2 CAPSULES FOR 1 WEEK, THEN 3 CAPSULES AT BEDTIMEE nortriptyli 2022-0 Yes [id number] TAKE 1 CAP UT ne 4-19 BY [...] mouth st MG tablet 17:01: daily. In [facility] 37 the l morning SUMAtriptan 2022-0 [...] mouth st MG tablet 17:01: daily. In [facility] aaron 37 the l morning SUMAtriptan 2022-0 Yes [...] mouth st MG tablet 17:01: daily. In [facility] 37 the l morning SUMAtriptan 2022-0 [...] mouth st MG tablet 17:01: daily. In [place] [id number] the l morning SUMAtriptan 2022-0 Yes 25mg Take 25 mg [facility] (IMITREX) 4-[address] 25 MG 17:01: once as Hospita tablet 37 needed for l migraine. May repeat in 2 hours if unresolved . Do not exceed 200 mg in 24 hours. SUMAtriptan 2022-0 Yes [id number] 25mg Take 1 UT (Imitrex) 2-24 tablet (25 Heal th 25 MG 00:00: mg total) tablet 00 by mouth 1 (one) time if needed for migraine (may repeat x1) for up to 1 dose. May repeat dose once in 2 hours if no relief. Do not exceed 2 doses in 24 hours. Diclofenac 2022-0 Yes 58 50mg Take 50 mg U T Potassium,M 2-24 by mouth 1 He alth igraine, 00:00: (one) time (Cambia) 50 00 each day MG pack if needed (headache) . SUMAtriptan 2021-0 Yes [id number] 25mg Take 1 UT (Imitrex) 2-24 tablet [...] MG pack if needed (headache) . SUMAtriptan Yes [id number] 25mg Take 1 UT (Imitrex) 2-24 tablet (25 Heal th 25 MG 00:00: mg total) tablet 00 by mouth 1 (one) time if needed for migraine (may repeat x1) for up to 1 dose. May repeat dose once in 2 hours if no relief. Do not exceed 2 doses in 24 hours. Diclofenac 2021- Yes 58 50mg Take 50 mg U T Potassium,M 2-24 by mouth 1 He alth igraine, 00:00: (one) time (Cambia) 50 00 each day MG pack if needed (headache) . levoFLOXaci 2021-2021- No 750mg QD Take 1 Me thodi [...] times a day for 7 days. levoFLOXaci 2021-2021- No 750mg QD Take 1 Me thodi n 09-[address] (Levaquin) 00:00: 05:59 (750 mg Hos aaron 750 MG 00 :00 total) by l tablet mouth daily for 7 days. doxycycline 2021-0 2021- No [...] 09-[address] ) 100 MG 00:00: 00:00 [...] 09-[address] ) 100 MG 00:00: 00:00 [...] 09-[address] ) 100 MG 00:00: 00:00 (100 mg Hospi ta capsule 00 :00 total) by l mouth 2 (two) times a day for 7 days. levoFLOXaci 2022-0 2022- No 750mg QD Take 1 Me thodi n 09-[address] (Levaquin) 00:00: 00:00 (750 mg Hos aaron 750 MG 00 :00 total) by l tablet mouth daily for 7 days. doxycycline 2-0 2022- No 100mg Q.5D Take 1 Me thodi (VIBRAMYCIN 09-[address] ) 100 MG 00:00: 00:00 (100 mg Hospi ta capsule 00 :00 total) by l mouth 2 (two) times a day for 7 days. levoFLOXaci 2-0 2022- No 750mg QD Take 1 Me [...] Yes 25mg Take 25 mg [facility] (IMITREX) -[address] 25 MG 13:44: once as Hospita tablet 49 needed for l migraine. May repeat in 2 hours if unresolved . Do not exceed 200 mg in 24 hours. folic acid 2022-0 Yes 1mg QD Take 1 mg Me thodi (FOLVITE) 1 1-[address] MG tablet 13:41: daily. In [facility] 05 the l morning folic acid 2022-0 Yes [id number] 1000ug QD Take 1 UT (Folvite) 1 -21 tablet Health MG tablet 00:00: (1,000 mcg 00 total) by mouth 1 (one) time each day. folic acid 2022-0 Yes [id number] 1000ug QD Take 1 UT (Folvite) 1 1-21 tablet Health MG tablet 00:00: (1,000 mcg 00 total) by mouth 1 (one) time each day. folic acid 2022-0 Yes [id number] 1000ug QD Take 1 UT (Folvite) 1 1-21 tablet Health MG tablet 00:00: (1,000 mcg 00 total) by mouth 1 (one) time each day. ergocalcife 2022-0 Yes [id number] 96755H Take 1 UT rol 1-14 capsule Health (Vitamin 00:00: (50,000 D2) 1.25 MG 00 Units (24356 UT) total) by capsule mouth 1 (one) time per week. QUEtiapine 2022-0 Yes [id number] 50mg Take 1 U T (SEROquel) 1-14 tablet (50 Hea lth 50 MG 00:00: mg total) tablet 00 by mouth every night. QUEtiapine 2022-0 Yes [id number] 25mg Take 1 U T (SEROquel) 1-14 tablet (25 Hea lth 25 MG 00:00: mg total) tablet 00 by mouth 1 (one) time each day in the morning. ergocalcife 2022-0 Yes [id number] 27636U Take 1 UT rol 1-14 capsule Health (Vitamin 00:00: (50,000 D2) 1.25 MG 00 Units (36242 UT) total) by capsule mouth 1 (one) time per week. QUEtiapine 2022-0 Yes [id number] 50mg Take 1 U T (SEROquel) 1-14 tablet (50 Hea lth 50 MG 00:00: mg total) tablet 00 by mouth every night. QUEtiapine 2022-0 Yes [id number] 25mg Take 1 U T (SEROquel) 1-14 tablet (25 Hea lth 25 MG 00:00: mg total) tablet 00 by mouth 1 (one) time each day in the morning. ergocalcife 2022-0 Yes [id number] 37937P Take 1 UT rol 1-14 capsule Health (Vitamin 00:00: (50,000 D2) 1.25 MG 00 Units (49612 UT) total) by capsule mouth 1 (one) time per week. QUEtiapine 2021-0 Yes [id number] 50mg Take 1 U T (SEROquel) 1-14 tablet (50 Hea lth 50 MG 00:00: mg total) tablet 00 by mouth every night. QUEtiapine 2021-0 Yes [id number] 25mg Take 1 U T (SEROquel) 1-14 tablet (25 Hea lth 25 MG 00:00: mg total) tablet 00 by mouth 1 (one) time each day in the morning. naloxone 2022- No [id number] .4mg Administer UT (Narcan) 2 08-14-15 0.4 mL Health MG/2ML 00:00: 05:59 (0.4 mg injection 00 :00 total) into affected nostril(s) if needed for opioid reversal. May repeat every 2-3 minutes as needed until medical assistance available. naloxone 2022- No [id number] 2mg Inject 5 UT (Narcan) 08-14-15 mL (2 mg Health 0.4 MG/ML 00:00: 05:59 total) injection 00 :00 into the shoulder, thigh, or buttocks if needed for opioid reversal. naloxone 2022- No [id number] .4mg Administer UT (Narcan) 2 08-14 0.4 mL Health MG/2ML 00:00: 05:59 (0.4 mg injection 00 :00 total) into affected nostril(s) if needed for opioid reversal. May repeat every 2-3 minutes as needed until medical assistance available. naloxone 2022- No [id number] 2mg Inject 5 UT (Narcan) 08-14-15 mL (2 mg Health 0.4 MG/ML 00:00: 05:59 total) injection 00 :00 into the shoulder, thigh, or buttocks if needed for opioid reversal. naloxone 2022- No [id number] .4mg Administer UT (Narcan) 2 08-14-15 0.4 mL Health MG/2ML 00:00: 05:59 (0.4 mg injection 00 :00 total) into affected nostril(s) if needed for opioid reversal. May repeat every 2-3 minutes as needed until medical assistance available. naloxone 2022- No [id number] 2mg Inject 5 [facility] (Narcan) 1-14 01-15 mL (2 mg Health 0.4 MG/ML 00:00: 05:59 total) injection 00 :00 into the shoulder, thigh, or buttocks if needed for opioid reversal. deferasirox 2020-08 Yes [id number] TAKE 3 [facility] (Jadenu) 2-07 TABLET Health 360 MG 00:00: DAILY tablet 00 deferasirox 2020-08 Yes [id number] TAKE 3 [facility] (Jadenu) 2-07 TABLET Health [...] ondansetron 2020-08- No Metho di ODT 0-07 - st (ZOFRAN-ODT 00:00: 00:00 Hospi ta ) 4 MG 00 :00 l disintegrat ing tablet ondansetron 2020-08- No Metho di ODT 0-07 - st (ZOFRAN-ODT 00:00: 00:00 Hospi ta ) 4 MG 00 :00 l disintegrat ing tablet Flexeril 5 Yes 5 mg = 1 [facility] mg oral 8-18 tab, PO, l tablet 10:22: TID, X 5 Stiven 00 day, # 15 tab, 0 Refill(s) Flexeril 5 Yes 5 mg = 1 [facility] mg oral 8-18 tab, PO, l tablet 10:22: TID, X 5 Stiven 00 day, # 15 tab, 0 Refill(s) Flexeril 5 Yes 5 mg = 1 [facility] mg oral 8-18 tab, PO, l tablet 10:22: TID, X 5 day, # 15 tab, 0 Refill(s) Flexeril 5 0 Yes 5 mg = 1 [facility] mg oral 8-18 tab, PO, l tablet 10:22: TID, X 5 day, # 15 tab, 0 Refill(s) Flexeril No Notes: [facility] 8-18 (Same As: l 08:55: Flexeril) Flexeril No Notes: [facility] 8-18 (Same As: l 08:55: Flexeril) Stiven 00 Flexeril No Notes: [facility] 8-18 (Same As: l 08:55: Flexeril) Flexeril No Notes: [facility] 8-18 (Same As: l 08:55: Flexeril) [facility] 00 ketOROLAC No 4 days [facility] 30 mg/mL 03-18 l injectable 08:54: MEDICATION H ermann solution 00 WASTE Product Size: 30 mg Product Wasted: ___ mg ketOROLAC No 4 days [facility] 30 mg/mL 8-18 l injectable 08:54: MEDICATION H ermann solution 00 WASTE Product Size: 30 mg Product Wasted: ___ mg ketOROLAC 2021-0 No 4 days [facility] 30 mg/mL 18 l injectable 08:54: MEDICATION H ermann solution 00 WASTE Product Size: 30 mg Product Wasted: ___ mg ketOROLAC 2021-0 No 4 days [facility] 30 mg/mL 03-18 l injectable 08:54: MEDICATION H ermann solution 00 WASTE Product Size: 30 mg Product Wasted: ___ mg Benadryl 1-0 No 25 mg, [facility] 18 Route: l 06:35: IVP, ONCE, [facility] Dosing Weight 71.818, kg, Priority: STAT, Start date: 03/18/21 1:35:00 CDT, Stop date: 03/18/21 1:35:00 CDT Benadryl 1-0 No 25 mg, [facility] 18 Route: l 06:35: IVP, ONCE, [facility] Dosing Weight 71.818, kg, Priority: STAT, Start date: 03/18/21 1:35:00 CDT, Stop date: 03/18/21 1:35:00 CDT Benadryl 1-0 No 25 mg, [facility] 818 Route: l 06:35: IVP, ONCE, Stiven 00 Dosing Weight 71.818, kg, Priority: STAT, Start date: 03/18/21 1:35:00 CDT, Stop date: 03/18/21 1:35:00 CDT Benadryl 1-0 No 25 mg, [facility] 8-18 Route: l 06:35: IVP, ONCE, [facility] Dosing Weight 71.818, kg, Priority: STAT, Start date: 03/18/21 1:35:00 CDT, Stop date: 03/18/21 1:35:00 CDT Sodium 1-0 No 1,000 mL, Memori a Chloride 18 1000 l 0.9% 05:02: ml/hr, Mcbee (Bolus) IV 00 Infuse Over: 1 hr, Route: IV, 1,000, Drug form: INJ, ONCE, Priority: STAT, Dosing Weight 71.818 kg, Start date: 03/18/21 0:02:00 CDT, Stop date: 03/18/21 0:02:00 CDT, 0 Morphine 2020-0 No Notes: Memoria 8-18 (Same l 05:02: as:MORPhin Stiven 00 e Sulfate) Sodium No 1,000 mL, Memori a Chloride 8-18 1000 l 0.9% 05:02: ml/hr, Mcbee (Bolus) IV 00 Infuse Over: 1 hr, Route: IV, 1,000, Drug form: INJ, ONCE, Priority: STAT, Dosing Weight 71.818 kg, Start date: 03/18/21 0:02:00 CDT, Stop date: 03/18/21 0:02:00 CDT, 0 Morphine 2020-0 No Notes: [facility]oria 8-18 (Same l 05:02: as:MORPhin Mcbee 00 e Sulfate) Sodium No 1,000 mL, Memori a Chloride 8-18 1000 l 0.9% 05:02: ml/hr, Stiven (Bolus) IV 00 Infuse Over: 1 hr, Route: IV, 1,000, Drug form: INJ, ONCE, Priority: STAT, Dosing Weight 71.818 kg, Start date: 03/18/21 0:02:00 CDT, Stop date: 03/18/21 0:02:00 CDT, 0 Morphine 2020-0 No Notes: [facility]oria 8-18 (Same l 05:02: as:MORPhin Mcbee 00 e Sulfate) Sodium No 1,000 mL, Memori a Chloride 8-18 1000 l 0.9% 05:02: ml/hr, Stiven (Bolus) IV 00 Infuse Over: 1 hr, Route: IV, 1,000, Drug form: INJ, ONCE, Priority: STAT, Dosing Weight 71.818 kg, Start date: 03/18/21 0:02:00 CDT, Stop date: 03/18/21 0:02:00 CDT, 0 Morphine 2020-0 No Notes: Memoria 8-18 (Same l 05:02: as:MORPhin Mcbee 00 e Sulfate) lisinopril 0 2020- No 5mg QD Take 5 mg M ethodi (PRINIVIL) 02-[address] 5 mg tablet 11:57: 00:00 daily. Hos aaron 27 :00 l deferasirox 2020- No TAKE 3 [facility] 360 mg 6-30 10-[address] tablet 00:00: 00:00 DAILY Hospita 00 :00 l deferasirox 2020- No TAKE 3 [...] tab, PO, l tablet 20:38: Q6H, PRN Mcbee 00 Pain, take with food, X 5 day, # 20 tab, 0 Refill(s) Motrin 600 2021-0 Yes 600 mg = 1 M emoria mg oral 3-25 tab, PO, l tablet 20:38: Q6H, PRN Mcbee 00 Pain, take with food, X 5 day, # 20 tab, 0 Refill(s) Motrin 600 2021-0 Yes 600 mg = 1 M emoria mg oral 3-25 tab, PO, l tablet 20:38: Q6H, PRN Mcbee 00 Pain, take with food, X 5 [...] 3-25 Route: PO, l 18:22: Drug form: Mcbee 00 TAB, ONCE, Dosing Weight 68.182, kg, Priority: STAT, Start date: 10/23/20 13:22:00 CDT, Stop date: 10/23/20 13:22:00 CDT aspirin 81 2020-0 2021- No 81mg QD Chew 1 Meth lynda [...] M.D. MOUTH ans 00 EVERY DAY fluticasone No [id number] SPRAY 2 [facility] propionate 12-[address] (FLONASE) 00:00: 00:00 INTO EACH Ho spita 50 00 :00 NOSTRIL l mcg/actuati EVERY DAY on nasal spray deferasirox 2020-0 Yes Take by [facility] 360 mg 2- mouth. st tablet 00:00: Hospita 00 l Deferasirox Deferasirox 2020-0 Yes BINSAH 3 QD TAKE 3 UT 360 MG Oral 360 MG Oral 2-07 ZAHRAA TABLET [facility] Tablet Tablet 00:00: M.D. DAILY ans 00 deferasirox 2020-0 2021- No Take by Me thodi 360 mg 210-[address] tablet 00:00: 00:00 Hospita 00 :00 l deferasirox 2020-0 2021- No Take by Me [facility] 360 mg 09-[address] tablet 00:00: 00:00 Hospita 00 :00 l deferasirox 2020-0 2021- No Take by Me [facility] 360 mg 09-[address] tablet 00:00: 00:00 Hospita 00 :00 l deferasirox 2020-0 2021- No Take by Me [facility] 360 mg -10-[address] tablet 00:00: 00:00 Hospita 00 :00 l HYDROcodone 2020-0 Yes 1{tbl} Q6H Take 1 Me thodi -acetaminop 1-[address] hen ([facility]) 00:00: mouth Hospi ta 10-325 mg 00 every 6 l per tablet (six) hours. HYDROcodone 2020-0 Yes 1{tbl} Q6H Take 1 Me thodi -acetaminop 1-[address] hen ([facility]) 00:00: mouth Hospi ta 10-325 mg 00 every 6 l per tablet (six) hours as needed for moderate pain. HYDROcodone 2020-0 Yes 1{tbl} Q6H Take 1 Me thodi -acetaminop 1-[address] hen ([facility]) 00:00: mouth Hospi ta 10-325 mg 00 every 6 l per tablet (six) hours as needed for moderate pain. HYDROcodone 2020-0 Yes 1{tbl} Q6H Take 1 Me thodi -acetaminop 1-[address] hen ([facility]) 00:00: mouth Hospi ta 10-325 mg 00 every 6 l per tablet (six) hours as needed for moderate pain. HYDROcodone 2020-0 Yes 1{tbl} Q6H Take 1 Me thodi -acetaminop 1-[address] hen ([facility]) 00:00: mouth Hospi ta 10-325 mg 00 every 6 l per tablet (six) hours as needed for moderate pain. HYDROcodone HYDROcodone 2020-0 Yes BINSAH 1 TAKE 1 UT -Acetaminop -Acetaminop 1-24 ZAHRAA TABLET Physici hen 10-325 hen 10-325 00:00: M.D. EVERY 6 ans MG Oral MG Oral 00 HOURS Tablet Tablet NEEDED FOR PAIN. Dilaudid 2018-08 No Notes: Memoria 2-31 Same as l 04:52: Dilaudid Stiven 00 Dilaudid 2018-08 No Notes: [facility]oria 2-31 Same as l 04:52: Dilaudid Mcbee 00 Dilaudid 2018-08 No Notes: [facility]oria 2-31 Same as l 04:52: Dilaudid Mcbee 00 Dilaudid 2018-08 No Notes: [facility]oria 2-31 Same as l 04:52: Dilaudid Mcbee 00 Isolyte S 2018-08 No Notes: Memori [...] LANGLEY TAKE 1 UT (Ergocalcif (Ergocalcif 1-18 BILINGUAL SPEECH THERAPIST CAPSULE BY [facility] marge) 1.25 marge) 1.25 00:00: MOUTH ONE ans MG (42834 MG (44950 00 TIME PER UT) Oral UT) Oral [...] UT ol 500 MG ol 500 MG BILINGUAL SPEECH THERAPIST TABLET 2 P [facility] Oral Tablet Oral Tablet TIMES ans DAILY NEEDED FOR SPASM. Gabapentin Gabapentin Yes UT 300 MG Oral 300 MG Oral P [facility] Capsule Capsule ans Immunizations Ordered Immunization Filled Immunization Date Status Commen ts Source Name Name HPV 9-Valent 2022-07-16 Completed [facility] 00:00:00 Influenza, 2022-07-16 Completed [facility] injectable, 00:00:00 quadrivalent, preservative free (afluria, fluarix, flulaval, fluzone) Tdap 2022-05-06 [facility] 2022-05-06 [facility] Tdap 2022-05-06 [facility] Tdap 2022-05-06 Completed [facility] 00:00:00 Gardasil-9 2020-12-22 Completed [facility] 00:00:00 [facility] Gardasil-9 2020-12-22 Completed [facility] 00:00:00 [facility] Gardasil-9 2020-12-22 Completed [facility] 00:00:00 [facility] Gardasil-9 2020-12-22 Completed [facility] 00:00:00 [facility] Gardasil-9 2020-12-22 Completed [facility] 00:00:00 [facility] HPV 9-Valent 2020-12-22 [facility]pleted [facility] 00:00:00 HPV 9-Valent 2020-12-22 [facility]pleted [facility] 00:00:00 HPV 9-Valent 2020-12-22 [facility] 00:00:00 FLUZONE QUAD PF 2019 Completed [facility] 00:00:00 [facility] Influenza Trivalent 2019 Completed [facility] 00:00:00 [facility] FLUZONE QUAD PF 2019 Completed [facility] 00:00:00 [facility] Influenza Trivalent 2019 Completed [facility] 00:00:00 [facility] FLUZONE QUAD PF 2019 Completed [facility] 00:00:00 [facility] Influenza Trivalent 2019 Completed [facility] 00:00:00 [facility] FLUZONE QUAD PF 2019 [facility]pleted [facility] 00:[facility] Influenza Trivalent 2019 Completed [facility] 00:00:[facility] FLUZONE QUAD PF 2019 Completed [facility] 00:00:00 [facility] Influenza Trivalent 2019 Completed [facility] 00:00:[facility] Fluzone Quadrivalent 2019 [facility] 0.5 ML Intramuscular 00:00:00 Suspension Prefilled Syringe Influenza, [facility], [facility] [...] flulaval, fluzone) FLUBLOK QUAD PF 2019-05-01 Completed [facility] 00:00:00 [facility] FLUBLOK QUAD PF 2019-05-01 Completed [facility] 00:[facility]:00 Hospital FLUBLOK QUAD PF 2019-05-01 Completed [facility] 00:00:00 [facility] FLUBLOK QUAD PF 2019-05-01 Completed [facility] 00:00:00 [facility] FLUBLOK QUAD PF 2019-05-01 Completed [facility] 00:00:00 [facility] Influenza, 2019-05-01 Completed [facility] quadrivalent, 00:00:00 injectable, preservative free (flublok) Influenza, 2019-05-01 Completed [facility] quadrivalent, 00:00:00 injectable, preservative free (flublok) Influenza, 2019-05-01 Completed [facility] quadrivalent, 00:00:00 injectable, preservative free (flublok) FLUZONE QUAD PF 2018-05-04 Completed [facility] 00:00:00 [facility] Meningcoccal Group B 2018-05-04 Completed [facility] 4 Strain (3 Dose) 00:00:00 Hospita l FLUZONE QUAD PF 2018-05-04 Completed [facility] 00:00:00 [facility] Meningcoccal Group B 2018-05-04 Completed [facility] od[facility] 4 Strain (3 Dose) 00:00:00 Hospita l FLUZONE QUAD PF 2018-05-04 Completed [facility] 00:00:00 [facility] Meningcoccal Group B 2018-05-04 Completed [facility] od[facility] 4 Strain (3 Dose) 00:00:00 Hospita l FLUZONE QUAD PF 2018-05-04 Completed [facility] 00:00:00 [facility] Meningcoccal Group B 2018-05-04 Completed [facility] od[facility] 4 Strain (3 Dose) 00:00:00 Hospita l FLUZONE QUAD PF 2018-05-04 [facility]:00 [facility] Meningcoccal Group B 2018-05-04 Completed [facility] 4 Strain (3 Dose) 00:00:00 Hospita l Influenza, 2018-05-04 Completed [facility] injectable, 00:00:00 [...] Recombinant 00:00:00 FLUZONE QUAD PF 2017-05-31 [facility]pleted [facility] FLUZONE QUAD PF 2017-05-31 [facility] FLUZONE QUAD PF 2017-05-31 [facility] 00:[facility] FLUZONE QUAD PF 2017-05-31 [facility] 00:00:[facility] FLUZONE QUAD PF 2017-05-31 Completed [facility] 00:00:00 [facility] Influenza, 2017-05-31 Completed [facility] injectable, 00:00:00 [...] (afluria, fluarix, flulaval, fluzone) Influenza, 2016-07-07 Completed [facility] Un[facility] 00:00:00 [facility] Influenza Trivalent 2016-07-07 Completed [facility] Influenza, 2016-07-07 [facility] Un[facility] 00:00:00 [facility] Influenza Trivalent 2016-07-07 Completed [facility] 00:[facility] Influenza, 2016-07-07 [facility] Un[facility] 00:00:00 [facility] Influenza Trivalent 2016-07-07 Completed [facility] 00:[facility] Influenza, 2016-07-07 [facility] 00:00:00 [facility] Influenza Trivalent 2016-07-07 Completed [facility] Influenza, 2016-07-07 [facility] 00:00:00 [facility] Influenza Trivalent 2016-07-07 Completed [facility] Influenza, seasonal, 2016-07-07 [facility] Influenza, seasonal, 2016-07-07 [facility] Influenza, seasonal, 2016-07-07 [facility]:00 Influenza, 2015-10-09 [facility]pleted [facility]:00 [facility] Influenza Trivalent 2015-10-09 Completed [facility] Influenza, 2015-10-09 [facility] 00:00:00 [facility] Influenza Trivalent 2015-10-09 Completed [facility] 00:[facility] Influenza, 2015-10-09 [facility] 00:00:00 [facility] Influenza Trivalent 2015-10-09 Completed [facility] 00:[facility] Influenza, 2015-10-09 [facility]pleted [facility] 00:00:00 [facility] Influenza Trivalent 2015-10-09 Completed [facility] Influenza, 2015-10-09 [facility] 00:00:00 [facility] Influenza Trivalent 2015-10-09 Completed [facility] Influenza, seasonal, 2015-10-09 [facility] Influenza, seasonal, 2015-10-09 [facility]:00 Influenza, seasonal, 2015-10-09 [facility]:00 Influenza, 2014-05-29 [facility]pleted [facility] Influenza Trivalent 2014-05-29 Completed [facility] Meningococcal 2014-05-29 Completed [facility] Conjugate 00:00:00 [facility] Influenza, 2014-05-29 [facility]pleted [facility] 00:00:00 [facility] Influenza Trivalent 2014-05-29 Completed [facility] 00:[facility] Meningococcal 2014-05-29 [facility]pleted [facility] Conjugate 00:00:00 [facility] Influenza, 2014-05-29 [facility] 00:00:00 [facility] Influenza Trivalent 2014-05-29 Completed [facility] 00:[facility] Meningococcal 2014-05-29 Completed [facility] Conjugate 00:00:00 [facility] Influenza, 2014-05-29 Completed [facility] 00:00:00 [facility] Influenza Trivalent 2014-05-29 Completed [facility] 00:[facility] Meningococcal 2014-05-29 [facility] Conjugate 00:00:00 [facility] Influenza, 2014-05-29 [facility] 00:00:00 [facility] Influenza Trivalent 2014-05-29 Completed [facility] 00:[facility]:00 [facility] Meningococcal 2014-05-29 Completed [facility] Conjugate 00:00:00 [facility] Influenza, seasonal, 2014-05-29 [facility]eningococcal MCV4O 2014-05-29 [facility] Influenza, seasonal, 2014-05-29 [facility]:00 Meningococcal MCV4O 2014-05-29 [facility] Influenza, seasonal, 2014-05-29 [facility]:00 Meningococcal MCV4O 2014-05-29 [facility] Influenza (IM) 2013-08-08 [facility]pleted [facility] Preservative Free [facility]:00 [facility]ospita l Influenza (IM) 2013-08-08 Completed [facility] Preservative Free 00:00:00 Hospita l Meningococcal MCV4P 2013-08-08 Completed [facility] Meningococcal ACWY, 2013-08-08 Completed [facility] Unspecified 00:00:00 Hospital Influenza (IM) 2013-08-08 [facility]pleted [facility] Preservative Free 00:00:00 [facility]ospita l Influenza (IM) 2013-08-08 Completed [facility] Preservative Free 00:00:00 Hospita l Meningococcal MCV4P 2013-08-08 Completed [facility] Meningococcal ACWY, 2013-08-08 Completed [facility] Unspecified 00:00:00 Hospital Influenza (IM) 2013-08-08 [facility]pleted [facility] Preservative Free 00:00:00 [facility]ospita l Influenza (IM) 2013-08-08 Completed [facility] Preservative Free 00:00:00 Hospita l Meningococcal MCV4P 2013-08-08 Completed [facility] Meningococcal ACWY, 2013-08-08 Completed [facility] Unspecified 00:00:00 Hospital Influenza (IM) 2013-08-08 [facility] Preservative Free 00:00:00 [facility]ospita l Influenza (IM) 2013-08-08 Completed [facility] Preservative Free 00:00:00 Hospita l Meningococcal MCV4P 2013-08-08 Completed [facility] Meningococcal ACWY, 2013-08-08 Completed [facility] Unspecified 00:00:00 Hospital Meningococcal ACWY, 2013-08-08 Completed [facility] Unspecified 00:00:00 Hospital Influenza (IM) 2013-08-08 [facility]pleted [facility] Preservative Free 00:00:00 [facility]ospita l Influenza (IM) 2013-08-08 Completed [facility] Preservative Free 00:00:00 Hospita l Meningococcal MCV4P 2013-08-08 Completed [facility] Influenza, seasonal, 2013-08-08 [facility] inject[facility], 00:00:00 preservative free Meningococcal, MCV4, 2013-08-08 [facility]pleted [facility] unspecified conjugate 00:00:00 formulation(groups A, C, Y and W-135) Influenza, seasonal, 2013-08-08 [facility] [...] MCV4P 2013-08-08 [facility] Tdap 2013-03-20 [facility] Meningococcal MCV4P 2013-03-20 Completed [facility] 00:[facility] Meningococcal ACWY, 2013-03-20 Completed [facility] Unspecified 00:00:00 Hospital Tdap 2013-03-20 [facility] Varicella 2013-03-20 [facility] Varicella 2013-03-20 [facility] Tdap 2013-03-20 [facility] Meningococcal MCV4P 2013-03-20 Completed [facility] 00:00:00 [facility] Meningococcal ACWY, 2013-03-20 Completed [facility] Unspecified 00:00:00 Hospital Tdap 2013-03-20 [facility] Varicella 2013-03-20 [facility] Varicella 2013-03-20 [facility] 00:[facility] Tdap 2013-03-20 [facility] 00:[facility] Meningococcal MCV4P 2013-03-20 Completed [facility] 00:[facility] Meningococcal ACWY, 2013-03-20 Completed [facility] Unspecified 00:00:00 Hospital Tdap 2013-03-20 [facility] Varicella 2013-03-20 [facility] Varicella 2013-03-20 [facility] 00:[facility] Tdap 2013-03-20 [facility] 00:[facility]:00 [facility] Meningococcal MCV4P 2013-03-20 Completed [facility] 00:00:00 [facility] Meningococcal ACWY, 2013-03-20 Completed [facility] Unspecified 00:00:00 Hospital Tdap 2013-03-20 [facility] Varicella 2013-03-20 [facility] Varicella 2013-03-20 [facility] 00:[facility]:00 [facility] Meningococcal ACWY, 2013-03-20 Completed [facility] Unspecified 00:00:00 Hospital Tdap 2013-03-20 [facility] Varicella 2013-03-20 [facility] Varicella 2013-03-20 [facility] 00:[facility]:00 [facility] Tdap 2013-03-20 [facility] 00:[facility] Meningococcal MCV4P 2013-03-20 Completed [facility] 00:00:00 [facility] Meningococcal, MCV4, 2013-03-20 [facility] unspecified conjugate 00:00:00 formulation(groups A, C, Y and W-135) Boostrix 5-2.5-18.5 2013-03-20 [facility] Intramuscular 00:00:00 Suspension Varivax 1350 2013-03-20 [facility] PFU/0.5ML 00:00:00 Subcutaneous Injectable Meningococcal, 2013-03-20 Completed [facility] Unknown Serogroups [...] 00:00:00 Tdap 2013-03-20 Completed [facility] 00:00:00 Influenza Trivalent 2012-06-08 Completed [facility] Influenza, 2012-06-08 [facility]:00 [facility] Influenza Trivalent 2012-06-08 Completed [facility] 00:[facility] Influenza, 2012-06-08 [facility] 00:00:00 [facility] Influenza Trivalent 2012-06-08 Completed [facility] 00:[facility] Influenza, 2012-06-08 [facility] 00:00:00 [facility] Influenza Trivalent 2012-06-08 Completed [facility] 00:[facility] Influenza, 2012-06-08 [facility] 00:00:00 [facility] Influenza Trivalent 2012-06-08 Completed [facility] 00:[facility] Influenza, 2012-06-08 [facility] influenza virus 2012-06-08 [facility], unspecified 00:00:00 formulation Influenza, seasonal, 2012-06-08 [facility] [...] [facility] Influenza (IM) 2011-05-27 Completed [facility] Preservative Free 00:00:00 [facility]ospita l Influenza (IM) 2011-05-27 Completed [facility] Preservative Free 00:00:00 [facility]ospita l Influenza (IM) 2011-05-27 Completed [facility] Preservative Free 00:00:00 Hospita l Influenza (IM) 2011-05-27 Completed [facility] Preservative Free 00:00:00 [facility]ospita l Influenza (IM) 2011-05-27 Completed [facility] Preservative Free 00:00:00 [facility]ita l Influenza, seasonal, 2011-05-27 [facility] inject[facility], 00:00:00 preservative free Influenza, seasonal, 2011-05-27 [...] 00:00:00 preservative free Influenza (IM) 2010-05-14 Completed [facility] Preservative Free 00:00:00 Hospita l Pneumococcal 2010-05-14 Completed [facility] Conjugate 13-Valent 00:00:00 Hospi heydi Influenza (IM) 2010-05-14 Completed [facility] Preservative Free 00:00:00 Hospita l Pneumococcal 2010-05-14 Completed [facility] Conjugate 13-Valent 00:00:00 Hospi heydi Influenza (IM) 2010-05-14 Completed [facility] Preservative Free 00:00:00 Hospita l Pneumococcal 2010-05-14 Completed [facility] Conjugate 13-Valent 00:00:00 Hospi heydi Influenza (IM) 2010-05-14 Completed [facility] Preservative Free 00:00:00 Hospita l Pneumococcal 2010-05-14 Completed [facility] Conjugate 13-Valent 00:00:00 Hospi heydi Pneumococcal 2010-05-14 Completed [facility] Conjugate 13-Valent 00:00:00 Hospi heydi Influenza (IM) 2010-05-14 Completed [facility] Preservative Free 00:00:00 Hospita l PCV 13, [...] 00:00:00 preservative free Influenza (IM) 2008-05-30 Completed [facility] Preservative Free 00:00:00 [facility]ospita l Influenza (IM) 2008-05-30 Completed [facility] Preservative Free 00:00:00 [facility]ospita l Influenza (IM) 2008-05-30 Completed [facility] Preservative Free 00:00:00 Hospita l Influenza (IM) 2008-05-30 Completed [facility] Preservative Free 00:00:00 Hospita l Influenza (IM) 2008-05-30 Completed [facility] Preservative Free 00:00:00 Hospita l Influenza (IM) 2008-05-30 Completed [facility] Preservative Free 00:00:00 Hospita l Influenza (IM) 2008-05-30 Completed [facility] Preservative Free 00:00:00 [facility]ospita l Influenza (IM) 2008-05-30 Completed [facility] Preservative Free 00:00:00 Hospita l Influenza (IM) 2008-05-30 Completed [facility] Preservative Free 00:00:00 [facility]ospita l Influenza (IM) 2008-05-30 Completed [facility] Preservative Free 00:00:00 [facility]ospita l Influenza, seasonal, [...] 00:00:00 preservative free Influenza (IM) 2007-05-09 Completed [facility] Preservative Free 00:00:00 [facility]ospita l Influenza (IM) 2007-05-09 Completed [facility] Preservative Free 00:00:00 Hospita l Influenza (IM) 2007-05-09 Completed [facility] Preservative Free 00:00:00 Hospita l Influenza (IM) 2007-05-09 Completed [facility] Preservative Free 00:00:00 Hospita l Influenza (IM) 2007-05-09 Completed [facility] Preservative Free 00:00:00 Hospita l Influenza, seasonal, [...] 00:00:00 preservative free Influenza (IM) 2006-05-19 Completed [facility] Preservative Free 00:00:00 [facility]ospita l Influenza (IM) 2006-05-19 Completed [facility] Preservative Free 00:00:00 [facility]ospita l Influenza (IM) 2006-05-19 Completed [facility] Preservative Free 00:00:00 [facility]ospita l Influenza (IM) 2006-05-19 Completed [facility] Preservative Free 00:00:00 [facility]ospita l Influenza (IM) 2006-05-19 Completed [facility] Preservative Free 00:00:00 [facility]ospita l Influenza (IM) 2006-05-19 Completed [facility] Preservative Free 00:00:00 [facility]ospita l Influenza (IM) 2006-05-19 Completed [facility] Preservative Free 00:00:00 Hospita l Influenza (IM) 2006-05-19 Completed [facility] Preservative Free 00:00:00 [facility]ospita l Influenza (IM) 2006-05-19 Completed [facility] Preservative Free 00:00:00 [facility]ospita l Influenza (IM) 2006-05-19 Completed [facility] Preservative Free 00:00:00 [facility] Influenza, seasonal, [...] [facility], [facility] preservative free DTaP, Unspecified 2005-03-[address] [facility] MMR 2005-03-09 [facility] IPV 2005-03-09 [facility] DTaP, Unspecified 2005-03-[address] 00:[facility] MMR 2005-03-09 [facility] IPV 2005-03-09 [facility] 00:[facility] DTaP, Unspecified 2005-03-[address] 00:[facility] MMR 2005-03-09 [facility] 00:[facility] IPV 2005-03-09 [facility] 00:[facility]:00 [facility] DTaP, Unspecified 2005-03-[address] 00:[facility] MMR 2005-03-09 [facility] IPV 2005-03-09 [facility] MMR 2005-03-09 [facility] 00:[facility] IPV 2005-03-09 [facility] 00:[facility] DTaP, Unspecified 2005-03-[address] 00:00:00 [facility] Ipol Injection 2005-03-09 [facility]:00 M-M-R II Subcutaneous 2005-03-09 [facility] Injectable 00:00:00 DTaP, unspecified 2005-03-09 [facility] formulation 00:00:00 Polio, Unspecified 2005-03-09 [facility] D[facility]P 2005-03-09 [facility] 00:00:00 MMR 2005-03-09 [facility] 00:00:00 Polio, Unspecified 2005-03-09 [facility] DTaP 2005-03-09 [facility] 00:00:00 MMR 2005-03-09 [facility] 00:00:00 Polio, Unspecified 2005-03-09 [facility] DTaP 2005-03-09 [facility] 00:00:00 MMR 2005-03-09 [facility] 00:00:00 Meningococcal 2004-12-16 Completed [facility] Polysaccharide 00:00:00 [facility] Meningococcal 2004-12-16 Com[facility] Polysaccharide 00:00:00 Hospital Pneumococcal 2004-12-16 Completed [facility] Polysaccharide 00:00:00 Hospital Meningococcal 2004-12-16 Completed [facility] Polysaccharide 00:00:00 Hospital Meningococcal 2004-12-16 Completed [facility] Polysaccharide 00:00:00 [facility] Pneumococcal 2004-12-16 Completed [facility] Polysaccharide 00:00:00 Hospital Meningococcal 2004-12-16 Completed [facility] Polysaccharide 00:00:00 Hospital Meningococcal 2004-12-16 Completed [facility] Polysaccharide 00:00:00 Hospital Pneumococcal 2004-12-16 Completed [facility] Polysaccharide 00:00:00 Hospital Meningococcal 2004-12-16 Completed [facility] 00:[facility]:00 [facility] Meningococcal 2004-12-16 Completed [facility] Polysaccharide 00:00:00 [facility] Pneumococcal 2004-12-16 Completed [facility] Polysaccharide 00:00:00 [facility] Meningococcal 2004-12-16 Completed [facility] Polysaccharide 00:00:00 [facility] Pneumococcal 2004-12-16 Completed [facility] Polysaccharide 00:00:00 [facility] Meningococcal 2004-12-16 Completed [facility] Polysaccharide 00:00:00 [facility] Meningo (Menomune) 2004-12-16 [facility] Pneumococcal 2004-12-16 [facility] polysaccharide [facility]:00 vaccine, 23 valent Meningococcal, 2004-12-16 [facility] Unknown Serogroups [...] MPSV4 2004-12-16 [facility] Influenza (IM) 2003-06-05 Completed [facility] Pres[facility] Influenza (IM) 2003-06-05 Completed [facility] Preservative Free 00:00:00 [facility] Influenza (IM) 2003-06-05 Completed [facility] Preservative Free 00:00:00 [facility] Influenza (IM) 2003-06-05 Completed [facility] Preservative Free 00:00:00 [facility]osp[facility] Influenza (IM) 2003-06-05 Completed [facility] Preservative Free 00:00:00 [facility]osp[facility] Influenza (IM) 2003-06-05 Completed [facility] Preservative Free 00:00:00 [facility]osp[facility] Influenza (IM) 2003-06-05 Completed [facility] Preservative Free 00:00:00 [facility]osp[facility] Influenza (IM) 2003-06-05 Completed [facility] Preservative Free 00:00:00 [facility]osp[facility] Influenza (IM) 2003-06-05 Completed [facility] Preservative Free 00:00:00 [facility]osp[facility] Influenza (IM) 2003-06-05 Completed [facility] Preservative Free 00:00:00 [facility]osp[facility] Influenza, seasonal, 2003-06-05 [facility] injectable, 00:00:00 preservative free Influenza, seasonal, 2003-06-05 [...] H ealth injectable, 00:00:00 preservative free Influenza Trivalent 2002 Completed [facility] Influenza, 2002 Completed [facility] Unspecified 00:00:00 [facility] Influenza Trivalent 2002 Completed [facility] 00:[facility] Influenza, 2002 Completed [facility] Un[facility] 00:00:00 [facility] Influenza Trivalent 2002 Completed [facility] 00:00:[facility] Influenza, 2002 Completed [facility] Un[facility] 00:00:00 [facility] Influenza Trivalent 2002 Completed [facility] 00:[facility] Influenza, 2002 Completed [facility] Un[facility] 00:00:00 [facility] Influenza Trivalent 2002 Completed [facility] 00:[facility] Influenza, 2002 Completed [facility] 00:[facility] influenza virus 2002 [facility] vaccine, unspecified 00:00:00 formulation Influenza, seasonal, 2002 [facility] [...] [facility] Unspecified 00:[facility]:00 Influenza Trivalent 2001-05-30 Completed [facility] 00:[facility] Influenza, 2001-05-30 Completed [facility] 00:00:00 [facility] Meningococcal 2001-05-30 Completed [facility] Polysaccharide 00:00:00 [facility] Meningococcal 2001-05-30 Completed [facility] Polysaccharide 00:00:00 [facility] Pneumococcal 2001-05-30 Completed [facility] Polysaccharide 00:00:00 Hospital Influenza Trivalent 2001-05-30 Completed [facility] 00:[facility] Influenza, 2001-05-30 Completed [facility] Un[facility] 00:00:00 Hospital Meningococcal 2001-05-30 Completed [facility] Polysaccharide 00:00:00 Hospital Meningococcal 2001-05-30 Completed [facility] Polysaccharide 00:00:00 Hospital Pneumococcal 2001-05-30 Completed [facility] Polysaccharide 00:00:00 Hospital Influenza Trivalent 2001-05-30 Completed [facility] 00:[facility] Influenza, 2001-05-30 Completed [facility] Un[facility] 00:00:00 [facility] Meningococcal 2001-05-30 Completed [facility] Polysaccharide 00:00:00 Hospital Meningococcal 2001-05-30 Completed [facility] Polysaccharide 00:00:00 Hospital Pneumococcal 2001-05-30 Completed [facility] Polysaccharide 00:00:00 Hospital Influenza Trivalent 2001-05-30 Completed [facility] 00:[facility] Influenza, 2001-05-30 Completed [facility] Un[facility] 00:00:00 Hospital Meningococcal 2001-05-30 Completed [facility] Polysaccharide 00:00:00 Hospital Meningococcal 2001-05-30 Completed [facility] Polysaccharide 00:00:00 Hospital Pneumococcal 2001-05-30 Completed [facility] Polysaccharide 00:00:00 Hospital Meningococcal 2001-05-30 Completed [facility] Polysaccharide 00:00:00 Hospital Pneumococcal 2001-05-30 Completed [facility] Polysaccharide 00:00:00 Hospital Influenza Trivalent 2001-05-30 Completed [facility] 00:[facility] Influenza, 2001-05-30 Completed [facility] Un[facility] 00:00:00 Hospital Meningococcal 2001-05-30 Completed [facility] Polys[facility] 00:00:00 [facility] influenza virus 2001-05-30 [facility] vaccine, unspecified 00:00:00 formulation Meningo (Menomune) 2001-05-30 [facility]pleted [facility]00 Pneumococcal 2001-05-30 [facility]pleted [facility] polysaccharide 00:00:00 vaccine, 23 valent Influenza, seasonal, 2001-05-30 [facility]pleted [facility] [...] MPSV4 2001-05-30 [facility]pleted [facility] Pneumococcal 2000-08-09 Completed [facility] Conjugate 00:00:00 [facility] Pneumococcal 2000-08-09 Completed [facility] Conjugate 00:00:00 [facility] Pneumococcal 2000-08-09 Completed [facility] Conjugate 00:00:00 Hospital Pneumococcal 2000-08-09 Completed [facility] Conjugate 00:00:00 [facility] Pneumococcal 2000-08-09 Completed [facility] Conjugate 00:00:00 [facility] Pneumo (Prevnar 7) 2000-08-09 [facility] Pneumococcal 2000-08-09 [facility] Conjugate PCV 13 00:00:00 Pneumococcal 2000-08-09 [facility]pleted [facility] Conjugate PCV 7 00:00:00 Pneumococcal 2000-08-09 [facility]pleted [facility] Conjugate PCV 13 00:00:00 Pneumococcal 2000-08-09 [facility]pleted [facility] Conjugate PCV 7 00:00:00 Pneumococcal 2000-08-09 [facility]pleted [facility] Conjugate PCV 13 00:00:00 Pneumococcal 2000-08-09 [facility]pleted [facility] Conjugate PCV 7 00:00:00 Vital Signs Vital Name Observation Time [...] Pulse oximetry Respiratory rate 2022-04-06 16 /min [facility] 19:12:00 Body height 2022-04-[address] [facility] [place] [place] 19:12:00 Body weight 2022-04-[address] [facility] [place] [place] 19:12:00 BMI 2022-04-06 24.53 kg/m2 [facility] [place] [place] 19:12:00 Systolic blood 2022-05-06 109 mm[Hg] [facility] pressure 08:55:00 Hospital Diastolic blood 2022-05-06 58 mm[Hg] [facility] pressure 08:55:00 Hospital Heart rate 2022-05-06 89 /min [facility] 08:55:00 [facility] Body temperature 2022-05-06 36.78 Machelle [facility] 08:55:00 Hospital Respiratory rate 2022-05-06 19 /min [facility] 08:55:00 Hospital Oxygen saturation 2022-05-06 99 /min [facility] in Arterial blood 08:55:00 Hospital by Pulse oximetry Height 2022-05-06 [facility]64 [facility] 02:30:00 [facility] Calculated 2022-05-06 [facility] 02:30:00 Weight 2022-05-06 [facility] 02:30:00 Systolic (mm Hg) 2022-05-06 [facility] rmann 02:30:00 Diastolic (mm Hg) 2022-05-[address] [facility] ermann 02:30:00 Heart Rate 2022-05-06 [facility] 02:30:00 Respitory Rate 2022-05-06 [facility] 02:30:00 Temperature Oral 2022-05-06 98.2 F [facility] rmann (F) 02:30:00 Systolic (mm Hg) 2022-04-19 [facility] 17:00:00 Diastolic (mm Hg) 2022-04-19 [facility] 17:00:00 Temperature Oral 2022-04-19 98.1 F [facility] rmann (F) 17:00:00 Systolic (mm Hg) 2022-04-19 [facility] 16:37:00 Diastolic (mm Hg) 2022-04-19 [facility] 16:37:00 Heart Rate 2022-04-19 [facility] 16:37:00 Respitory Rate 2022-04-19 [facility] 16:37:00 Height 2022-04-19 167.64 cm [facility] 11:59:00 BMI Calculated 2022-04-19 [facility] [...] n 12:59:05 Temperature Oral 2022-01-17 98.1 F [facility] (F) 12:59:01 Respitory Rate 2022-01-17 [facility] 12:00:00 Heart Rate 2022-01-17 [facility] 10:02:52 Respitory Rate 2022-01-17 [facility] 10:02:52 Systolic (mm Hg) 2022-01-17 [facility] 10:02:21 Diastolic (mm Hg) 2022-01-17 [facility] 10:02:21 Temperature Oral 2022-01-17 98 F [facility] (F) 10:02:20 Temperature Oral 2022-01-17 [...] 2022-01-11 [facility] 07:28:00 [facility] Sy[facility]olic (mm Hg) 2022-01-10 [facility] rmann 16:21:00 Diastolic (mm Hg) 2022-01-[address] [facility] ermann 16:21:00 Respitory Rate 2022-01-10 [facility] 16:21:00 Temperature Oral 2022-01-10 98 F [facility] rmann (F) 16:21:00 Systolic (mm Hg) 2022-01-10 [facility] rmann 13:25:00 Diastolic (mm Hg) 2022-01-[address] [facility] ermann 13:25:00 Respitory Rate 2022-01-10 [facility] 13:25:00 Height 2022-01-10 [facility] 12[facility]00 [facility] Calculated 2022-01-10 [facility] 12:56:00 [facility]10 [facility] Systolic (mm Hg) 2022-01-10 [facility] rmann 12:56:00 Diastolic (mm Hg) 2022-01-[address] [facility] ermann 12:56:00 Heart Rate [facility]01[facility] Respitory Rate 2022-01-10 [facility] 12:56:00 Temperature Oral 2022-01-10 97.2 F [facility] rmann (F) 12:56:00 Systolic blood 2021-10-31 111 mm[Hg] [facility] pressure 15:48:18 Hospital Diastolic blood 2021-10-31 76 mm[Hg] [facility] pressure 15:48:18 Hospital Heart rate 2021-10-31 105 /min [facility] 15:48:18 Hospital Body temperature 2021-10-31 37.11 [facility] 15:48:18 Hospital Respiratory rate 2021-10-31 22 /min [facility] 15:48:18 Hospital Oxygen saturation 2021-10-31 97 /min [facility] in Arterial blood 15:48:18 Hospital by Pulse oximetry Body height 2021-10-26 167.6 cm [facility] 16:25:00 [facility] Body weight 2021-10-26 70.761 kg [facility] 16:25:00 [facility] BMI 2021-10-26 25.18 kg/m2 [facility] 16:25:00 [facility] Heart rate 2021-09-02 154 /min [facility] 03:02:00 Hospital Systolic blood 2021-09-02 137 mm[Hg] [facility] pressure 01:29:23 Hospital Diastolic blood 2021-09-02 65 mm[Hg] [facility] pressure 01:29:23 Hospital Body temperature 2021-09-02 38.78 M[facility] 01:29:23 Hospital Respiratory rate 2021-09-02 16 /min [facility] 01:29:23 Hospital Oxygen saturation 2021-09-02 93 /min [facility] in Arterial blood 01:29:23 Hospital by Pulse oximetry Body height 2021-08-31 167.6 cm [facility] 19:38:00 Hospital Body weight 2021-08-31 70.761 kg [facility] 19:38:00 [facility] BMI 2021-08-31 25.18 kg/m2 [facility] 19:38:00 [facility] Weight 2021-03-18 [facility] 04:56:00 Systolic (mm Hg) 2021-03-18 [facility] 04:56:00 Diastolic (mm Hg) 2021-03-[address] [facility] ermann 04:56:00 Heart Rate 2021-03-18 [facility] 04:56:00 Respitory Rate 2021-03-18 [facility] 04:56:00 Temperature Oral 2021-03-18 97.8 F [facility] rmann (F) 04:56:00 Respitory Rate 2021-01-24 [facility] 18:19:00 Heart Rate 2021-01-24 [facility] 18:19:00 Systolic (mm Hg) 2021-01-24 [facility] 18:19:00 Diastolic (mm Hg) 2021-01-24 [facility] 18:19:00 Height 2021-01-24 167.64 cm [facility] 15:45:00 BMI Calculated 2021-01-24 [facility] 15:45:00 Weight 2021-01-24 [facility] 15:45:00 Systolic (mm Hg) 2021-01-24 [facility] 15:45:00 Diastolic (mm Hg) 2021-01-24 [facility] 15:45:00 Heart Rate 2021-01-24 [facility] 15:45:00 Respitory Rate 2021-01-24 [facility] 15:45:00 Temperature Oral 2021-01-24 97.8 F [facility] (F) 15:45:00 Body mass index 2020-10-24 [...] Systolic blood 2020-04-25 107 mm[Hg] Location: LUE; [facility] pressure 09:20:00 Position: Sitting Diastolic blood 2020-04-25 65 mm[Hg] Location: LUE; [facility] pressure 09:20:00 Position: Sitting Body [...] Diastolic blood 2020-01-11 54 mm[Hg] Location: LUE; [facility] pressure 09:50:00 Position: Sitting Body [...] BP Systolic 2019-08-24 128 mm[Hg] [facility]; [facility] 11:05:00 Position: Sitting BP Diastolic 2019-08-24 77 mm[Hg] Location: LUE; [facility] 11:05:00 Position: Sitting Height 2019-08-24 [...] BP Systolic 2019-06-15 106 mm[Hg] Location: LUE; [facility] 09:43:00 Position: Sitting BP Diastolic 2019-06-15 63 mm[Hg] Location: [place]; [facility] 09:43:00 Position: Sitting Height 2019-06-15 65.83 [...] Date / Time Performing Clinician Source Performed [place] SIMPLE REPAIR 2022-05-06 08:55:00 [facility] F/E/E/N/L/M 2.6CM-5.[address] CERVICAL SPINE WO 2022-05-06 07:53:44 [facility] CONTRAST [facility] HEAD WO CONTRAST 2022-05-06 07:53:32 [facility] MAXILLOFACIAL WO 2022-05-06 07:53:22 [facility] CONTRAST [place] COMPREHENSIVE METABOLIC 2022-04-06 20:15:00 [facility] PANEL LACTATE DEHYDROGENASE 2022-04-06 20:15:00 [facility] CBC AND DIFFERENTIAL 2022-04-06 20:15:00 [facility] RETICULOCYTES 2022-04-06 20:15:00 [facility] URINALYSIS WITH REFLEX 2022-04-06 20:05:00 [facility] MICROSCOPIC CBC WITH PLATELET AND 2021-10-31 11:18:00 [facility] DIFFERENTIAL [place] CBC WITH PLATELET AND 2021-10-30 11:47:00 [facility] DIFFERENTIAL BASIC METABOLIC PANEL 2021-10-30 11:47:00 [facility] ESTIMATED GFR 2021-10-30 11:47:00 [facility] RETICULOCYTE COUNT 2021-10-30 11:41:00 [facility] HEMOGLOBIN & HEMATOCRIT 2021-10-27 09:31:00 [facility] 2021-10-27 09:31[facility] 2021-10-26 21:55:00 Landy Santacruz [facility] BLOOD CULTURE, AEROBIC & 2021-10-26 20:55:00 [facility] ANAEROBIC [facility] COVID-19 QUALITATIVE 2021-10-26 20:54:00 [facility] RT-PCR BLOOD CULTURE, AEROBIC & 2021-10-26 20:54:00 Landy Santacruz [facility] ANAEROBIC [place] URINE CULTURE 2021-10-26 18:21:00 [facility] URINALYSIS SCREEN AND 2021-10-26 18:21:00 [facility] MICROSCOPY, WITH REFLEX TO CULTURE XR CHEST 2 VW 2021-10-26 18:13:00 [facility] COMPREHENSIVE METABOLIC 2021-10-26 17:08:00 [facility] PANEL CBC WITH PLATELET AND 2021-10-26 17:08:00 [facility] DIFFERENTIAL RETICULOCYTE COUNT 2021-10-26 17:08:00 [facility] LDH 2021-10-26 17:08:00 [facility] ESTIMATED GFR 2021-10-26 17:08:00 [facility] MANUAL DIFFERENTIAL 2021-10-26 17:08:00 [facility] BLOOD SMEAR CONSULT 2021-10-26 17:08:00 [facility] BASIC METABOLIC PANEL 2021-09-09 12:11:00 Lis [facility] 2021-09-09 12:11:00 Erendira Kitchen [facility] spital ESTIMATED GFR 2021-09-09 12:11:00 [facility] MRI UPPER EXTREMITY JOINT 2021-09-09 05:19:21 Penny Multani [facility] W WO CONTRAST LEFT CT ABDOMEN PELVIS W 2021-09-09 04:07[facility] BASIC METABOLIC PANEL 2021-09-08 12:07:00 Lis [facility] CBC WITH PLATELET AND 2021-09-08 12:07:00 Vanessa Multani [facility] DIFFERENTIAL ESTIMATED GFR 2021-09-08 12:07:00 [facility] 2021-09-08 12:07:00 [facility] MANUAL DIFFERENTIAL 2021-09-08 12:07:00 [facility] TRANSFUSE RED BLOOD CELLS 2021-09-08 04:35:00 [facility] TYPE AND SCREEN 2021-09-07 22:25:00 [facility] PREPARE RBC 2021-09-07 22:25:00 [facility] BLOOD CULTURE, AEROBIC & 2021-09-07 18:31:00 [facility] ANAEROBIC PROCALCITONIN 2021-09-07 18:31:00 [facility] BLOOD CULTURE, AEROBIC & 2021-09-07 18:30:00 [facility] ANAEROBIC BASIC METABOLIC PANEL 2021-09-07 11:55:00 [facility] WITH [facility]ATELET AND 2021-09-07 11:55:00 [facility] DIFFERENTIAL LDH 2021-09-07 11:55:00 Danette Gilmore [facility] BLOOD SMEAR CONSULT 2021-09-07 11:55:00 [facility] ESTIM[facility] GFR 2021-09-07 11:55:00 Giancarlo [facility] spital MANUAL DIFFERENTIAL 2021-09-07 11:55:00 [facility] PANEL 2021-09-07 11:46:00 [facility] HAPTOGLOBIN 2021-09-07 11:46:00 [facility] VANCOMYCIN LEVEL, TROUGH 2021-09-06 21:55:00 [facility] XR SHOULDER 2+ VW LEFT 2021-09-06 19:23:58 [facility] CHLAMYDIA TRACHOMATIS, ALESSIO 2021-09-06 14:40:00 [facility] WITH PLATELET AND 2021-09-06 14:09:00 [facility] MANUAL DIFFERENTIAL 2021-09-06 14:09:[address] [facility] BASIC METABOLIC PANEL 2021-09-06 11:35:00 [facility] ESTIMATED GFR 2021-09-06 11:35:00 [facility] GONORRHOEAE CULTURE 2021-09-06 01:12:00 [facility] CBC WITH PLATELET AND 2021-09-05 21:03:00 [facility] DIFFERENTIAL VANCOMYCIN LEVEL, TROUGH 2021-09-05 21:03:00 [facility] MANUAL DIFFERENTIAL 2021-09-05 21:03:00 [facility] CBC WITH PLATELET AND 2021-09-05 12:18:00 [facility] DIFFERENTIAL COMPREHENSIVE METABOLIC 2021-09-05 12:18:00 [facility] PANEL ESTIMATED GFR 2021-09-05 12:18:00 [facility] spital MANUAL DIFFERENTIAL 2021-09-05 12:18:00 [facility] GROUP A STREP, RAPID 2021-09-04 22:18:00 [facility] ANTIGEN MRSA PCR 2021-09-04 22:18:00 [facility] STREP SCREEN CULTURE 2021-09-04 22:18:00 [facility] RESPIRATORY PATHOGEN PANEL 2021-09-04 15:55:00 [facility] WITH COVID-19 RT-PCR PROCALCITONIN 2021-09-04 15:55:00 [facility] COMPREHENSIVE METABOLIC 2021-09-03 18:53:00 [facility] PANEL ESTIMATED GFR 2021-09-03 18:53:00 [facility] US DUPLEX VENOUS LOWER 2021-09-03 17:30:00 [facility] EXTREMITY BILATERAL CT ANGIOGRAM PE CHEST 2021-09-02 17:51:00 [facility] CBC WITH PLATELET AND 2021-09-02 16:06:00 [facility] DIFFERENTIAL COMPREHENSIVE METABOLIC 2021-09-02 16:06:00 [facility] PANEL ESTIMATED GFR 2021-09-02 16:06:00 [facility] MANUAL DIFFERENTIAL 2021-09-02 16:06:00 [facility] BLOOD SMEAR CONSULT 2021-09-02 16:06:00 [facility] ZZCOVID-19 ANTI-SPIKE IGG 2021-09-02 11:55:00 [facility] ANTIBODY TITER All ZZCOVID-19 SEROLOGY 2021-09-02 11:55:00 [facility] XR CHEST 1 VW PORTABLE 2021-09-02 05:53:20 [facility] Mariela URINE CULTURE 2021-09-02 04:06:00 [facility] URINALYSIS SCREEN AND 2021-09-02 04:06:00 [facility] MICROSCOPY, WITH REFLEX TO CULTURE URINALYSIS SCREEN AND 2021-09-02 04:06:00 [facility] MICROSCOPY, WITH REFLEX TO CULTURE BLOOD CULTURE, AEROBIC & 2021-09-01 23:50:00 [facility] ANAEROBIC TROPONIN T 2021-08-31 23:43:00 [facility] TROPONIN T 2021-08-31 20:27:00 [facility] COVID-19 QUALITATIVE 2021-08-31 17:07:00 Kwabena Mariano [facility] RT-PCR XR CHEST 2 VW 2021-08-31 14:51:00 Kwabena Mariano [facility] HC COMPLETE BLD COUNT 2021-08-31 14:32:00 Kwabena Mariano [facility] W/AUTO DIFF COMPREHENSIVE METABOLIC 2021-08-31 14:32:00 [facility] PANEL TROPONIN T 2021-08-31 14:32:00 [facility] CREATINE KINASE, TOTAL 2021-08-31 14:32:00 [facility] LDH 2021-08-31 14:32:00 [facility] RETICULOCYTE COUNT 2021-08-31 14:32:00 [facility] ESTIMATED GFR 2021-08-31 14:32:00 [facility] [place] CRITICAL CARE 2021-08-31 14:22:04 [facility] ILL/INJURED PATIENT INIT 30-74 MIN ECG ED PRELIMINARY 2021-08-31 14:22:04 [facility] INTERPRETATION ECG 12-LEAD 2021-08-31 14:14:08 [facility] POC URINALYSIS DIPSTICK 2021-05-21 22:36:00 [facility] ABDOMEN PELVIS W 2021-05-09 21:58:52 [facility] CONTRAST XR CHEST 2 VW 2021-05-09 20:51:54 [facility] URINE CULTURE 2021-05-09 20:47:00 [facility] HC COMPLETE BLD COUNT 2021-05-09 20:47:00 [facility] W/AUTO DIFF COMPREHENSIVE METABOLIC 2021-05-09 20:47:00 [facility] PANEL RETICULOCYTE COUNT 2021-05-09 20:47:00 [facility] URINALYSIS SCREEN AND 2021-05-09 20:47:00 [facility] MICROSCOPY, WITH REFLEX TO CULTURE TROPONIN 2021-05-09 20:47:00 [facility] ESTIMATED GFR 2021-05-09 20:47:00 [facility] ECG 12-LEAD 2021-05-09 20:35:32 [facility] ECG ED PRELIMINARY 2021-05-09 20:16:52 [facility] INTERPRETATION URINALYSIS, COMPLETE, WITH 2021-02-24 20:14:00 Barbara Harding [facility] REFLEX TO CULTURE MICROSCOPIC EXAMINATION 2021-02-24 20:14:00 [facility] Hard[facility] XR HIP 2-3 VIEWS LEFT 2021-02-24 18:18:05 Barbara Harding [facility] XR LUMBAR SPINE COMPLETE 2021-02-24 18:13:50 Barbara Harding [facility] 4+ VW POC URINALYSIS DIPSTICK 2021-02-24 17:17:00 [facility] [QL] CBC (INCLUDES 2020-10-24 00:00:00 [facility] DIFF/PLT[facility] [QL] CMP W/EGFR 2020-10-24 00:00:00 [facility] [QL] RETICULOCYTE COUNT 2020-10-24 00:00:00 [facility] [QL] FERRITIN 2020-10-24 00:00:00 [facility] [L] Prot+CreatU (Random) 2020-10-24 00:00:00 [facility] [QL] LD 2020-10-24 00:00:00 [facility] [L] Hemoglobinopathy 2020-10-24 00:00:00 [facility] [place] [QL] VITAMIN D, 2020-10-24 00:00:00 [facility] 25-HYDROXY, LC/MS/MS HC COMPLETE BLD COUNT 2020-09-14 11:25:00 [facility] W/AUTO DIFF COMPREHENSIVE METABOLIC 2020-09-14 11:25:00 [facility] PANEL LDH 2020-09-14 11:25:00 Erendira Kitchen spital ESTIMATED GFR 2020-09-14 11:25:00 [facility] SMEAR REVIEW 2020-09-14 11:25:00 [facility] BLOOD SMEAR CONSULT 2020-09-14 11:25:00 Achuo, [facility] HC COMPLETE BLD COUNT 2020-09-13 10:31:00 Achuo, [facility] W/AUTO DIFF COMPREHENSIVE METABOLIC 2020-09-13 10:31:00 [facility] PANEL LDH 2020-09-13 10:31:00 Erendira Kitchen Ho spital ESTIMATED GFR 2020-09-13 10:31[facility]00 [facility] [facility] SMEAR REVIEW 2020-09-13 10:31:00 [facility], [facility] TRANSFUSE RED BLOOD CELLS 2020-09-13 04:50:00 [facility], [facility] D-DIMER 2020-09-12 19:59:00 [facility] CRP HIGH SENSITIVITY 2020-09-12 19:59:00 [facility], [facility] LDH 2020-09-12 19:59:00 [facility] PREPARE RBC 2020-09-12 19:59:00 [facility], [facility] HEMOGLOBIN ELECTROPHORESIS 2020-09-12 19:59:00 [facility] HCT AND RBC HEMOGLOBIN F, QUANTITATIVE 2020-09-12 19:59:00 [facility] HEMOGLOBIN A2 2020-09-12 19:59:00 Erendira Kitchen spital HC COMPLETE BLD COUNT 2020-09-12 11:06:00 [facility] W/AUTO DIFF COMPREHENSIVE METABOLIC 2020-09-12 11:06:00 [facility] PANEL LIPID PANEL 2020-09-12 11:06:00 [facility], [facility] MAGNESIUM LEVEL 2020-09-12 11:06:00 [facility], [facility] PHOSPHORUS LEVEL 2020-09-12 11:06:00 [facility], [facility] ESTIMATED GFR 2020-09-12 11:06:00 [facility] B NATRIURETIC PEP, I-STAT 2020-09-12 11:06:00 [facility] SMEAR REVIEW 2020-09-12 11:06:00 [facility] BLOOD SMEAR CONSULT 2020-09-12 11:06:00 [facility] TROPONIN, I-STAT 2020-09-12 07:40:00 [facility] URINE DRUGS OF ABUSE 2020-09-12 03:40:00 [facility] SCREEN ECG 12-LEAD 2020-09-12 01:20:03 [facility] LACTIC ACID LEVEL, SEPSIS 2020-09-12 01:19:00 [facility] - NOW AND REPEAT 2X EVERY 3 HOURS LACTIC ACID LEVEL, SEPSIS 2020-09-11 22:51:00 [facility] - NOW AND REPEAT 2X EVERY 3 HOURS TROPONIN, I-STAT 2020-09-11 22:51:00 [facility] URINE CULTURE 2020-09-11 21:43:00 [facility] URINALYSIS SCREEN AND 2020-09-11 21:43:00 [facility] MICROSCOPY, WITH REFLEX TO CULTURE LDH 2020-09-11 20:15:00 [facility] RETICULOCYTE COUNT 2020-09-11 20:15:00 [facility] RESPIRATORY PATHOGEN PANEL 2020-09-11 20:01:00 [facility] WITH COVID-19 RT-PCR BLOOD CULTURE, AEROBIC & 2020-09-11 20:00:00 [facility] ANAEROBIC XR CHEST 1 VW PORTABLE 2020-09-11 19:40:00 [facility] BLOOD CULTURE, AEROBIC & 2020-09-11 19:39:00 [facility] ANAEROBIC LACTIC ACID LEVEL, SEPSIS 2020-09-11 19:38:00 [place]AT 2X EVERY 3 HOURS HC COMPLETE BLD COUNT 2020-09-11 19:38:00 Shlomo carlin [facility] W/AUTO DIFF COMPREHENSIVE METABOLIC 2020-09-11 19:38:00 [facility] PAN[facility] PARTIAL THROMBOPLASTIN 2020-09-11 19:38:00 Shlomo carlin [facility] TIME (PTT) PROTHROMBIN TIME WITH INR 2020-09-11 19:38:00 [facility] ESTIMATED GFR 2020-09-11 19:38:00 [facility] B NATRIURETIC PEP, I-STAT 2020-09-11 19:38:00 [facility], [facility] TROPONIN, I-STAT 2020-09-11 19:38:00 [facility] SMEAR REVIEW 2020-09-11 19:38:00 [facility], [facility] ECG 12-LEAD 2020-09-11 19:15:36 [facility], [facility] ECG ED PRELIMINARY 2020-09-11 19:05:40 [facility] INTERPRETATION XR CHEST 2 VW 2020-09-01 21:30:23 [facility] TTE COMPLETE, WO CONTRAST, 2020-09-01 21:15:00 Barbara Harding [facility] W DOPPLER (50960) [QL] CBC (INCLUDES 2020-04-25 00:00:00 [facility] [...] with 2019-06-15 00:00:00 [facility] Doppler 12111 [QLH] CBC (INCLUDES 2019-06-15 00:00:00 [facility] [...] Source Future Scheduled 2022-07-18 COVID-19 VACCINE (#1) [facility] Test 02:09:20 [code = COVID-19 VACCINE (#1)] Future Scheduled 2022-07-18 Hepatitis C screening [facility] Test 02:09:20 (procedure) [code = 786849920] Future Scheduled 2022-07-18 [facility]ACCINE [facility] 02:09:20 [code = INFLUENZA VACCINE] Future Scheduled 2022-07-18 Pneumococcal Vaccine: [facility] Test 02:09:20 Pediatrics (0 to 5 Years) and At-Risk Patients (6 to 64 Years) (4 - PPSV23 if available, else PCV20) [code = Pneumococcal Vaccine: Pediatrics (0 to 5 Years) and At-Risk Patients (6 to 64 Years) (4 - PPSV23 if available, else PCV20)] Future Scheduled 2022-07-18 COVID-19 VACCINE (#1) [facility] Test 02:09:20 [code = COVID-19 VACCINE (#1)] Future Scheduled 2022-07-18 Hepatitis C screening [facility] Test 02:09:20 (procedure) [code = 174882579] Future Scheduled 2022-07-18 [facility] VACCINE [facility] Test 02:09:20 [code = INFLUENZA VACCINE] Future Scheduled 2022-07-18 Pneumococcal Vaccine: [facility] Test 02:09:20 Pediatrics (0 to 5 Years) and At-Risk Patients (6 to 64 Years) (4 - PPSV23 if available, else PCV20) [code = Pneumococcal Vaccine: Pediatrics (0 to 5 Years) and At-Risk Patients (6 to 64 Years) (4 - PPSV23 if available, else PCV20)] Future Scheduled 2022-07-18 COVID-19 VACCINE (#1) [facility] Test 02:09:20 [code = COVID-19 VACCINE (#1)] Future Scheduled 2022-07-18 Hepatitis C screening [facility] Test 02:09:20 (procedure) [code = [id number]] Future Scheduled 2022-07-18 [facility]FL[facility]ZA VACCINE [facility] Test 02:09:20 [code = INFLUENZA VACCINE] Future Scheduled 2022-07-18 Pneumococcal Vaccine: [facility] Test 02:09:20 Pediatrics (0 to 5 Years) and At-Risk Patients (6 to 64 Years) (4 - PPSV23 if available, else PCV20) [code = Pneumococcal Vaccine: Pediatrics (0 to 5 Years) and At-Risk Patients (6 to 64 Years) (4 - PPSV23 if available, else PCV20)] Future Scheduled 2022-04-09 HEPATITIS B VACCINES [facility] Test 14:06:06 (1 of 3 - 3-dose series) [code = HEPATITIS B VACCINES (1 of 3 - 3-dose series)] Future Scheduled 2022-04-09 COVID-19 VACCINE (#1) [facility] Test 14:06:06 [code = COVID-19 VACCINE (#1)] Future Scheduled 2022-04-09 Hepatitis C screening [facility] Test 14:06:06 (procedure) [code = [id number]] Future Scheduled 2022-04-[address] [facility] Test 14:06:06 [code = INFLUENZA VACCINE] Future Scheduled 2022-04-09 Pneumococcal Vaccine: [facility] Test 14:06:06 Pediatrics (0 to 5 Years) and At-Risk Patients (6 to 64 Years) (4 - PPSV23 or PCV20) [code = Pneumococcal Vaccine: Pediatrics (0 to 5 Years) and At-Risk Patients (6 to 64 Years) (4 - PPSV23 or PCV20)] Future Scheduled 2021-09-01 COVID-19 VACCINE (1) [facility] Test 22:50:03 [code = COVID-19 VACCINE (1)] Future Scheduled 2021-09-01 Hepatitis C screening [facility] Test 22:50:03 (procedure) [code = [id number]] Future Scheduled 2021-09-[address] [facility] Test 22:50:03 [code = INFLUENZA VACCINE] Diagnostic Test 2019-07-19 [N] 2D Echo complete, [facility] Pending 00:00:00 with Doppler 07621 [code = [N] 2D Echo complete, with Doppler 17883] Diagnostic Test 2019-06-15 [N] 2D Echo complete, [facility] Pending 00:00:00 with Doppler 55464 [code = [N] 2D Echo complete, with Doppler 22618] Diagnostic Test 2019-06-15 [N] 2D Echo complete, [facility] Pending 00:00:00 with Doppler 50622 [code = [N] 2D Echo complete, with Doppler 10838] Diagnostic Test 2019-06-15 [N] 2D Echo complete, [facility] Pending 00:00:00 with Doppler 49778 [code = [N] 2D Echo complete, with Doppler 01163] Encounters Start End Encounter Admission Attending Care Care Encounter Source Date/Time Date/Time Type Type Clinicians Facility Department ID 2022-08-30 Outpatient [facility] [id number] [place] 10:02:43 [id number] [facility] 2022-08-18 Outpatient [facility] [id number] [place] 07:59:01 [id number] [facility] 2022-08-13 Outpatient [facility] [id number] [place] 09:53:32 [id number] [facility] 2022-07-16 Outpatient [facility] [id number] [place] 09:17:38 [id number] [facility] 2021-10-19 Outpatient ONESTEPHANIEU, [facility] [id number] [place] 10:22:30 [facility] 2021-09-24 Outpatient MEHDI [facility] [id number] [place] 14:53:10 [facility] 2021-08-14 [facility] [id number] [place] 10:44:37 [facility] 2021-08-14 Outpatient ONESTEPHANIEU, [facility] [id number] [place] 10:42:47 [facility] 2021-08-14 Outpatient RIN DAVIS [facility] [id number] [place] 09:59:19 [facility] 2021-02-17 Outpatient RIN DAVIS [facility] [id number] [place] 13:08:57 [facility] 2021-02-05 Outpatient RIN DAVIS [facility] [id number] [place] 10:03:51 [facility] 2021-01-29 Outpatient [facility] [id number] [place] 11:10:23 [facility] 2021-01-09 Outpatient ZAHRAA [facility] [id number] [place] 11:06:25 [facility] 2021-01-09 Outpatient RIN DAVIS [facility] [id number] [place] 10:07:14 [facility] 2020-12-24 Outpatient ROBERT [facility] [id number] [place] 11:41:40 [facility] 2020-12-24 Outpatient [facility] [id number] [place] 10:25:05 [facility] 2020-12-06 Outpatient ZAHRAA [facility] [id number] [place] 04:27:14 [facility] 2022-11-11 2022-11-11 Outpatient ONUEGBU, [facility] [id number] [place] 10:00:00 10:00:00 [facility] 2022-09-01 2022-09-01 Outpatient DIONY [facility] [id number] [place] 09:00:00 09:00:00 XAVIER [facility] 2022-08-13 2022-08-13 Outpatient BLANE, [facility] [id number] [place] 09:30:00 10:31:48 [facility] 2022-07-30 2022-07-30 Nurse Brooke Claudio 1.2.840.114 [id number] [place] 00:00:00 00:00:00 Triage Brooke Claudio 350.1.13.58 [facility] 9.2.7.2.686 [place] [id number] 2022-07-16 2022-07-16 Outpatient BLANE, [facility] [id number] [place] 13:30:00 13:30:00 [facility] 2022-07-16 2022-07-16 Outpatient GEOVANNI LANGLEY [facility] [id number] [place] 09:15:00 10:22:33 [facility] 2022-07-09 2022-07-09 Outpatient MICHELLE [facility] [id number] [place] 14:00:00 14:00:00 [facility] 2022-05-14 2022-05-14 Outpatient [facility] [id number] [place] 15:00:00 15:00:00 [facility] 2022-05-06 2022-05-06 [facility] [id number] Memoria 01:31:26 07:07:00 r Stiven 01 l [facility] 2022-05-06 2022-05-06 [facility] [id number] Memoria 01:31:26 07:07:00 lauren Saleem 01 l [facility] 2022-05-06 2022-05-06 Emergency de Parkinson, 1.2.840.1 [id number] Methodi 00:11:00 03:55:00 Jeff 42156.1.1 744 [facility] 3.430.2.7 Hospit a .3.837434 l .8 2022-05-06 2022-05-06 Emergency de Parkinson, 1.2.840.1 [id number] 21 [id number] Methodi 00:11:00 03:55:[address] P[facility] 3.430.2.7 Hospit a .3.598635 l .8 2022-05-05 2022-05-06 Outpatient LINDA Cano MHPL [id number] 20:31:26 02:07:00 Reeva 01 Alfonso 2022-05-05 2022-05-06 Emergency E VALENTINE CANO MHBL [id number] MHBL 20:31:00 02:07:00 REEVA 2022-05-06 2022-05-06 Travel 1.2.840.1 1.2.573.621 [id number] [id number] Methodi 00:00:00 00:00:[address] 3.430.2.7 0.2.7.3.698 Ho spita .3.120345 084.8 l .8 2022-05-06 2022-05-06 Travel 1.2.840.1 1.2.507.870 0457 [id number] Methodi 00:00:00 00:00:[address] 3.430.2.7 0.2.7.3.698 Ho spita .3.216615 084.8 l .8 2022-04-19 2022-04-19 [facility] [id number] Memoria 11:55:40 18:05:00 r Mcbee 00 l [facility] 2022-04-19 2022-04-19 [facility] [id number] Memoria 11:55:40 18:05:00 r Stiven 00 l [facility] 2022-04-19 2022-04-[address] [place] [id number] 06:55:40 13:05:00 Gisele 00 2022-04-19 2022-04-19 Emergency E IRINA PARKS MHBL [id number] MHBL 06:55:00 13:05:00 2022-04-06 2022-04-06 Office LUIS Martinez [place] 1.2.840.114 [id number] MD 14:00:00 16:30:20 Visit Pao HAY 350.1.13.[address] [facility] MEDICAL 9.2.7.2.686 [place] [id number] 2022-04-06 2022-04-06 Outpatient [facility] [id number] [place] 15:00:00 15:00:00 Health 2022-03-17 2022-03-17 Telephone Brooke Claudio LUIS [place] 1.2.840.1 14 [id number] MD 00:00:00 00:00:00 Brooke Claudio 350.1.13.58 Health MEDICAL 9.2.7.2.686 CENTER [id number] 2022-03-15 2022-03-15 Telephone Gavin Pena LUIS [place] 1.2.840. 114 [id number] MD 00:00:00 00:00:00 JeanGavin saucedo 350.1.13.58 Health MEDICAL 9.2.7.2.686 CENTER [id number] 2022-03-12 2022-03-12 Office LUIS Davis [place] 1.2.014.057 [id number] MD 13:30:00 14:33:34 Visit Tal HAY 350.1.13.[address] [facility] MEDICAL 9.2.7.2.686 CENTER [id number] 6 2022-01-11 2022-01-17 [facility] [id number] Memoria 07:27:50 17:39:00 lauren Saleem [address] [place] [address] 2022-01-11 2022-01-17 [facility] [id number] Memoria 07:27:50 17:39:00 lauren Saleem 05 [facility] 2022-01-11 2022-01-17 Inpatient VALENTINE JAIME MED [id number] MHBL 04:11:00 12:39:00 PRACHI 2022-01-11 2022-01-17 Outpatient LINDA Cano [facility] [id number] [facility] 02:27:50 12:39:00 Prachi 2022-01-11 2022-01-17 Outpatient Maikel, MHPL MHPL [id number] 02:27:50 12:39:00 Prachi 2022-01-10 2022-01-10 Emergency [facility] [id number] Memoria 12:53:37 16:50:[address] 2022-01-10 2022-01-10 Emergency [facility] [id number] Memoria 12:53:37 16:50:00 r Mcbee 04 [facility] 2022-01-10 2022-01-10 Outpatient ROBI PricePL MHPL [id number] 07:53:37 11:50:00 Abdiwab 04 Minaya 2022-01-10 2022-01-10 Emergency E NIKKIGERALDINE, MHBL MHBL [id number] MHBL 07:53:00 11:50:00 ABDIWAHAB 2021-11-10 2021-11-10 Patient Holli Valera LUIS [place] 1.2.840.11 4 [id number] MD 00:00:00 00:00:00 Outreach Holli Valera SATNAM 350.1.13.58 Health MEDICAL 9.2.7.2.686 [place] [id number] 2021-11-03 2021-11-03 Telephone Marianne Guerra LUIS [place]ERSON 1.2.84 0.114 [id number] MD 00:00:00 00:00:00 Marianne Guerra 350.1.13.58 Health MEDICAL 9.2.7.2.686 [place] [id number] 2021-11-02 2021-11-02 Patient Jt, 1.2.840.1 [id number] Methodi 00:00:00 00:00:00 Outreach Olufunmi 20169.1.[address] 3.430.2.7 Hospit a .3.804604 l .8 2021-11-02 2021-11-02 Patient Jt, 1.2.840.1 [id number] 3515 Methodi 00:00:00 00:00:00 Outreach Olufunmi 65716.1.[address] 3.430.2.7 Hospit a .3.295485 l .8 2021-10-26 2021-10-31 [facility] [place] 1.2.840.1 [id number] Methodi 11:26:00 17:01:00 Encounter Keny Menon 78975.1.[address] [facility] .3.794384 l .8 2021-10-26 2021-10-31 [facility] 1.2.840[facility]1 104 [id number] Methodi 11:26:00 17:01:00 Encounter Keny Menon 54388.1.1 889 [place] Perrin 3.430.2.7 Hospita .3.099704 l .8 2021-10-26 2021-10-26 Travel 1.2.840.1 1.2.742.230 4878 [id number] Methodi 00:00:00 00:00:[address] 3.430.2.7 0.2.7.3.698 Ho spita .3.602289 084.8 l .8 2021-10-26 2021-10-26 Telephone Alice Lincoln [facility] 6410 1.2.8 40.114 [id number] MD 00:00:00 00:00:[address] 350.1.13.5 8 Health 9.2.7.2.686 [id number] 2021-10-26 2021-10-26 Travel 1.2.840.1 1.2.340.291 2653 892015 Methodi 00:00:00 00:00:[address] 3.430.2.7 0.2.7.3.698 Ho spita .3.059242 084.8 l .8 2021-09-30 2021-09-30 Travel 1.2.840.1 1.2.168.555 8637 215668 Methodi 00:00:00 00:00:[address] 3.430.2.7 0.2.7.3.698 Ho spita .3.637778 084.8 l .8 2021-09-30 2021-09-30 Travel 1.2.840.1 1.2.319.904 9110 810774 Methodi 00:00:00 00:00:[address] 3.430.2.7 0.2.7.3.698 Ho spita .3.673858 084.8 l .8 2021-09-24 2021-09-24 Office MehdiLUIS 6410 1.2.840.114 [id number] MD 14:30:00 14:51:[address] 350.1.13.58 Health 9.2.7.2.686 [id number] 2021-08-31 2021-09-09 [facility] Kwabena Mariano 1.2.840.1 1045 67016 [id number] Methodi 08:10:00 15:31:00 Encounter Vanessa Multani 41330.1.[address] 3.430.2.7 Hospit a .3.197207 l .8 2021-08-31 2021-09-09 [facility] Kwabena Mariano 1.2.840.1 1045 [id number] Methodi 08:10:00 15:31:00 Encounter Vanessa Multani 39161.1.[address] 3.430.2.7 Hospit a .3.235685 l .8 2021-08-31 2021-08-31 Travel 1.2.840.1 1.2.974.324 5561 [id number] Methodi 00:00:00 00:00:[address] 3.430.2.7 0.2.7.3.698 Ho spita .3.375084 084.8 l .8 2021-08-18 2021-08-18 Telephone Geovanni Langley LUIS [place] 1.2.840.114 [id number] MD 00:00:00 00:00:00 PLAZA 350.1.13.58 He alth MEDICAL 9.2.7.2.686 CENTER [id number] 5 2021-08-17 2021-08-17 Telephone Pushpa Samano LUIS [place] 1.2.840. 114 [id number] MD 00:00:00 00:00:00 Pushpa Samano LAINAZA 350.1.13.58 Health MEDICAL 9.2.7.2.686 CENTER [id number] 2021-08-14 2021-08-14 Office Zahraa LUIS [place] 1.2.840.114 [id number] MD 09:00:00 10:42:44 Visit Cisco SATNAM 350.1.13.58 Joel cabezas Bella MEDICAL 9.2.7.2.686 [place] [id number] 2021-08-14 2021-08-14 Patient Shockency, Fabi LUIS [place] 1.2.84 0.114 [id number] MD 00:00:00 00:00:00 Outreach Shockency, Fabi SATNAM 350.1.13.5 8 Health MEDICAL 9.2.7.2.686 CENTER [id number] 2021-07-21 2021-07-21 Telephone Leonard Wenramon ANDERSON 1.2.840.1 14 [id number] MD 00:00:00 00:00:00 BrendahunterYessica 350.1.13.58 Health MEDICAL 9.2.7.2.686 CENTER [id number] 2021-07-09 2021-07-09 Telephone Manjula Cade ULIS [place] 1.2.840.1 14 [id number] MD 00:00:00 00:00:00 Manjula Cade 350.1.13.58 Health MEDICAL 9.2.7.2.686 CENTER [id number] 2021-05-28 2021-05-28 Telephone Mehdi 1.2.840.1 [id number] [id number] [place] 00:00:00 00:00:00 Barbara Rondon 90354.1.[address] 3.430.2.7 Hospit a .3.108554 l .8 2021-05-21 2021-05-21 Office Mehdi, 1.2.840.1 [id number] 8545 Methodi 16:00:00 16:41:43 Visit Barbara Rondon 44550.1.[address] 3.430.2.7 Hospit a .3.463395 l .8 2021-05-21 2021-05-21 Travel 1.2.840.1 1.2.302.590 4348 022243 Methodi 00:00:00 00:00:[address] 3.430.2.7 0.2.7.3.698 Ho spita .3.486079 084.8 l .8 2021-05-09 2021-05-09 Emergency RohitGary 1.2.840.1 [id number] Methodi 15:12:00 19:13:[address] 3.430.2.7 Hospit a .3.178467 l .8 2021-05-09 2021-05-09 Travel 1.2.840.1 1.2.621.076 2083 [id number] Methodi 00:00:00 00:00:[address] 3.430.2.7 0.2.7.3.698 Ho spita .3.376812 084.8 l .8 2021-05-07 2021-05-07 Telephone Marianne Guerra 1.2.84 0.114 [id number] MD 00:00:00 00:00:00 Marianne Guerra 350.1.13.58 [facility] MEDICAL 9.2.7.2.686 [place] [id number] 2021-05-06 2021-05-06 Travel 1.2.840.1 1.2.565.532 1296 [id number] Methodi 00:00:00 00:00:[address] 3.430.2.7 0.2.7.3.698 Ho spita .3.433624 084.8 l .8 2021-03-19 2021-03-19 LUIS Vieyra [place] 1.2.840.114 [id number] [place] 00:00:00 00:00:00 Pao PLAZA 350.1.13.[address] [facility] MEDICAL 9.2.7.2.686 [place] [id number] 5 2021-03-19 2021-03-19 LUIS Vieyra [place] 1.2.840.114 [id number] 00:00:00 00:00:00 Pao PLAZA 350.1.13.58 MEDICAL 9.2.7.2.686 [place] [id number] 5 2021-03-18 2021-03-18 Emergency [facility] [id number] Memoria 04:02:56 10:53:00 r Stiven 03 [facility] 2021-03-18 2021-03-18 Emergency [facility] [id number] Memoria 04:02:56 10:53:00 Stiven 03 [facility] 2021-03-17 2021-03-18 Outpatient Vishnyamilenaa MHPL MHPL [id number] 23:02:56 05:53:00 , Fatemeh 03 2021-03-17 2021-03-18 Emergency E VISHNYAMILENAA MHBL MHBL [id number] MHBL 23:02:00 05:53:00 , FATEMEH 2021-03-18 2021-03-18 Telephone Lucila Alvarez [place] 1.2.840.11 4 [id number] [place] 00:00:00 00:00:00 Kim, Lucila PLAZA 350.1.13.58 [facility] MEDICAL 9.2.7.2.686 [place] [id number] 2021-03-18 2021-03-18 Telephone LUIS Alvarez [place] 1.2.840.114 12 [id number] 00:00:00 00:00:00 Lucila PLAZA 350.1.13.58 MEDICAL 9.2.7.2.686 [place] [id number] 0 2021-03-06 2021-03-06 Telephone Elsa Collier LUIS ANDERSON 1.2.840.1 14 [id number] MD 00:00:00 00:00:00 Elsa Collier 350.1.13.58 Health MEDICAL 9.2.7.2.686 [place] [id number] 0 2021-03-06 2021-03-06 Telephone LUIS Collier JUSTIN 1.2.840.114 [id number] 00:00:00 00:00:00 Elsa HAY 350.1.13.58 MEDICAL 9.2.7.2.686 [place] [id number] 2021-02-24 2021-02-24 Office Gianna Harding2.840.1 [id number] 4310 Methodi 11:49:26 12:13:24 Visit Barbara Rondon 10307.1.[address] 3.430.2.7 Hospit a .3.173215 l .8 2021-02-24 2021-02-24 [facility] [id number] 34984 [place] 00:00:00 00:00:00 BARBARA Mosquera4 [facility] 2021-02-24 2021-02-24 [facility] 67926 53747 [place] 00:00:00 00:00:00 BARBARA Mosquera8 [facility] 2021-02-23 2021-02-23 Travel 1.2.840.1 1.2.655.349 9529 [id number] Methodi 00:00:00 00:00:[address] 3.430.2.7 0.2.7.3.698 Ho spita .3.968427 084.8 l .8 2021-02-19 2021-02-19 Telephone Al Lisacirilo ANDERSON 1.2.84 0.114 [id number] MD 00:00:00 00:00:00 Adri Melendez 350.1.13.58 Health MEDICAL 9.2.7.2.686 [place] [id number] 6 2021-02-19 2021-02-19 Patient Rajat Ash 1.2.84 0.114 [id number] [place] 00:00:00 00:00:00 Outreach Rajat Ash 350.1.13.5 8 Health MEDICAL 9.2.7.2.686 [place] [id number] 6 2021-02-04 2021-02-04 Refill Adri Melendez [place] 1.2.840. 114 [id number] [place] 00:00:00 00:00:00 Adri Melendez 350.1.13.58 Health MEDICAL 9.2.7.2.686 [place] [id number] 6 2021-01-28 2021-01-28 Orders Adri Melendez [place] 1.2.840. 114 [id number] MD 00:00:00 00:00:00 Only Adri Melendez 350.1.13.58 Health MEDICAL 9.2.7.2.686 [place] [id number] 6 2021-01-27 2021-01-27 Telephone Marianne Keller [place] 1.2 .840.114 [id number] MD 00:00:00 00:00:00 Marianne Keller SATNAM 350.1.13.5 8 [facility] MEDICAL 9.2.7.2.686 [place] [id number] 0 2021-01-24 2021-01-24 Emergency [facility] [id number] Memoria 15:32:55 19:15:00 r Stiven [address] [place] [address] 2021-01-24 2021-01-24 Emergency [facility] 03047 [id number] Memoria 15:32:55 19:15:00 r Stiven [address] [place] [address] 2021-01-24 2021-01-24 Outpatient LINDA PricePL [id number] 8395 10:32:55 14:15:00 Cammie Modiahim 2021-01-24 2021-01-24 Emergency E VALENTINE PRICE [facility]BL 7502 [place] 10:32:00 14:15:00 CAMMIE 2021-01-22 2021-01-22 Patient Rajat Ash JUSTIN 1.2.84 0.114 [id number] MD 00:00:00 00:00:00 Outreach Rajat Ash 350.1.13.5 8 Health MEDICAL 9.2.7.2.686 [place] [id number] 6 2021-01-09 2021-01-09 Office LUIS Vital 1.2.840.114 [id number] MD 09:29:58 11:05:07 Visit Cisco HAY 350.1.13.58 [facility] 9.2.7.2.686 [place] [id number] 6 2021-01-08 2021-01-08 Patient ShockencyFabi 1.2.84 0.114 [id number] MD 00:00:00 00:00:00 Outreach ShockFabi alvarado 350.1.13.5 8 Health MEDICAL 9.2.7.2.686 [place] [id number] 6 2021-01-08 2021-01-08 Patient Rajat Ash 1.2.84 0.114 [id number] MD 00:00:00 00:00:00 Outreach Rajat Ash 350.1.13.5 8 Health MEDICAL 9.2.7.2.686 [place] [id number] 6 2021-01-06 2021-01-06 Telephone Yajaira Du 1.2.840 .114 [id number] MD 00:00:00 00:00:00 DuYajaira brewster LAINAMAO 350.1.13.58 Health MEDICAL 9.2.7.2.686 [place] [id number] 0 2021-01-01 2021-01-01 Travel 1.2.840.1 1.2.546.068 3090 887201 Methodi 00:00:00 00:00:00 48000.1.1 350.1.13.[address] 3.430.2.7 0.2.7.3.698 Ho spita .3.183978 084.8 l .8 2020-12-31 2020-12-31 Telephone Mehdi 1.2.840.1 [id number] [id number] Methodi 00:00:00 00:00:00 Barbara Rondon 00429.1.[address] 3.430.2.7 Hospit a .3.392538 l .8 2020-12-22 2020-12-22 Office RobertLUIS 1.2.840.114 [id number] MD 15:54:20 17:11:33 Visit Karlo SATNAM 350.1.13.58 He alth MEDICAL 9.2.7.2.686 CENTER [id number] 1 2020-12-22 2020-12-22 Orders Adri Melendez [facility] 1.2.840. 114 [id number] [place] 00:00:00 00:00:00 Only Adri Melendez SAT[facility] 350.1.13.58 Health MEDICAL 9.2.7.2.686 CENTER [id number] 6 2020-12-19 2020-12-19 Telephone Eryn Qiu [place] 1.2.840.11 4 [id number] MD 00:00:00 00:00:00 Eryn Qiu 350.1.13.58 Health MEDICAL 9.2.7.2.686 CENTER [id number] 2020-12-19 2020-12-19 Refill Maria EugeniakelseyaamirLUIS [place] 1.2.840.114 [id number] [place] 00:00:00 00:00:00 Pao HAY 350.1.13.58 alth MEDICAL 9.2.7.2.686 CENTER [id number] 5 2020-12-19 2020-12-19 Patient Mihir Danielabritta SMITH [place] 1.2.84 0.114 [id number] [place] 00:00:00 00:00:00 Outreach Mihir Danielabritta HAY 350.1.13.5 8 Health MEDICAL 9.2.7.2.686 CENTER [id number] 1 2020-12-17 2020-12-17 Telephone Latosha Brooks [place] 1.2. 840.114 [id number] [place] 00:00:00 00:00:00 Latosha Brooks 350.1.13.58 Health MEDICAL 9.2.7.2.686 CENTER [id number] 0 2020-10-24 2020-10-24 Appointmen [facility] [id number] [place] 10:00:00 10:00:00 t; [facility], Jeancarlos - Physici Mandy BOWERS. [facility] 2020-10-23 2020-10-23 Emergency [facility] [id number] Memoria 18:10:02 20:58:00 r Mcbee 01 l [facility] 2020-10-23 2020-10-23 Emergency [facility] [id number] Memoria 18:10:02 20:58:00 r Stiven 01 l [facility] 2020-10-23 2020-10-[address] [id number] 13:10:02 15:58:[address] [facility] 2020-10-23 2020-10-23 Emergency E ROBI VASQUEZBL MHBL 7501 MHBL 13:10:00 15:58:00 RAUVAN 2020-09-22 2020-09-22 Telemedici Mehdi 1.2.840.1 [id number] Methodi 13:01:16 13:14:07 mahsa Rondon 03749.1.[address] 3.430.2.7 Hospit a .3.334325 l .8 2020-09-18 2020-09-18 Travel 1.2.840.1 1.2.467.209 [id number] Methodi 00:00:00 00:00:[address] 3.430.2.7 0.2.7.3.698 Ho spita .3.408785 084.8 l .8 2020-09-11 2020-09-14 Emergency Shlomo Bustillosnils 1.2.840.1 [id number] Methodi 13:09:00 15:20:00 Pérez Thompson 71136.1.[address] 3.430.2.7 Hospit a .3.338124 l .8 2020-09-11 2020-09-11 Reji Harding 1.2.840.1 [id number] 2099 [id number] Methodi 00:00:00 00:00:00 Barbara Rondon 75983.1.[address] 3.430.2.7 Hospit a .3.566244 l .8 2020-09-11 2020-09-11 Travel 1.2.840.1 1.2.203.178 3519 [id number] Methodi 00:00:00 00:00:[address] 3.430.2.7 0.2.7.3.698 Ho spita .3.166767 084.8 l .8 2020-09-01 2020-09-01 Hospital [facility], 1.2.840.1 [id number] Methodi 15:14:13 23:59:00 Encounter Barbara Rondon 03827.1.[address] 3.430.2.7 Hospit a .3.003933 l .8 2020-09-01 2020-09-01 Formerly [facility], 1.2.840.1 [id number] Methodi 14:43:05 15:13:00 Encounter Barbara Rondon 16800.1.[address] 3.430.2.7 Hospit a .3.784576 l .8 2020-09-01 2020-09-01 Travel 1.2.840.1 1.2.412.414 1420 [id number] Methodi 00:00:00 00:00:[address] 3.430.2.7 0.2.7.3.698 Ho spita .3.468101 084.8 l .8 2020-08-22 2020-08-22 Emergency [facility], [facility] 409 [id number] 614 [place] 00:00:00 00:00:00 FAHEEM [address] 2020-08-21 2020-08-21 Outpatient MEHDI ACUNA, [facility] [id number] [place] 00:00:00 00:00:00 BARBARA [address] 2020-08-08 2020-08-08 AppointLUIS Wan [id number] MD 10:40:00 10:40:00 t; [facility] Phy sici BINSAH, M.D. ans M.D. 2020-07-14 2020-07-21 Inpatient NERISSA, [facility] 025 [id number] [id number] [place] 00:00:00 00:00:00 VANESSA 101 Method i 2020-07-11 2020-07-11 Appointmen [facility] Internal [id number] [place] 08:20:00 08:20:00 t; [facility] Medicine - Physici BINSAH, M.D. [place] [facility] [place] 2020-04-25 2020-04-25 Appointmen [facility] Comprehensi [id number] [place] 09:00:00 09:00:00 t; [facility] ve Sickle P hysici BINSAH, M.D. [facility] porter [place] 2020-04-08 2020-04-16 Inpatient JAY, [facility] 064 [id number] [place] 00:00:00 00:00:00 PÉREZ 788 Method i 2020-04-04 2020-04-04 Appointmen LUIS ALMENDAREZ [id number] [place] 11:00:00 11:00:00 t; CAIT ALMENDAREZ P hysici HARINDER, M.D. ans M.D. 2020-01-28 2020-01-28 Outpatient MEHDI ACUNA, [facility] [id number] [place] 00:00:00 00:00:00 BARBARA 584 Method i 2020-01-11 2020-01-11 Appointmen SMILEY CHAVEZ [facility] Multispecia [id number] [place] 10:00:00 10:00:00 t; niurka CHAVEZ - The Phy sici ECHO [facility], ans [address] 2020-01-11 2020-01-11 Appointmen LUIS ALMENDAREZ Comprehensi [id number] [place] 09:40:00 09:40:00 t; CAIT ALMENDAREZ ve Sickle Physici HARINDER, M.D. Cell [place] daniela wilson M.D. 2020-01-11 2020-01-11 Appointmen LUIS ALMENDAREZ Comprehensi [id number] [place] 09:40:00 09:40:00 t; CAIT ALMENDAREZ ve Sickle Physici HARINDER, M.D. Cell [place] daniela wilson M.D. 2019-12-07 2019-12-07 Appointmen LUIS ALMENDAREZ UTP [id number] [place] 10:20:00 10:20:00 t; CAIT ALMENDAREZ P hysici HARINDER, M.D. ans M.D. 2019-10-19 2019-10-19 Appointmen LUIS ALMENDAREZ Comprehensi [id number] [place] 10:20:00 10:20:00 t; CAIT ALMENDAREZ ve Sickle Physici HARINDER, M.D. Cell Center an s [place] 2019-10-16 2019-10-16 Outpatient MEHDI ACUNA, [facility] [id number] [place] 00:00:00 00:00:00 BARBARA 873 Method i 2019-09-15 2019-09-20 Inpatient NERISSA, [facility] [id number] [place] 00:00:00 00:00:00 VANESSA 862 Method i 2019-08-24 2019-08-24 Appointmen LUIS ALMENDAREZ Comprehensi [id number] [place] 10:40:00 10:40:00 t; CAIT ALMENDAREZ ve Sickle Physici HARINDER, M.D. Cell Center daniela s [place] 2019-08-16 2019-08-16 Appointmen LUIS SOMMERS [id number] [place] 13:00:00 13:00:00 t; FRANCISCO JAVIER SOMMERS Phy sici ECHOII [facility] 2019-07-31 2019-07-[address] [facility] [id number] Mem[place] 02:02:58 06:33:00 r Stiven 00 l [facility] 2019-07-31 2019-07-31 Emergency nullFlavo [facility] [id number] Mem[place] 02:02:58 06:33:00 r Stiven 00 l [facility] 2019-07-30 2019-07-31 Outpatient Fernando, [facility] [id number] 20:02:58 00:33:00 Leora M 00 2019-06-16 2019-06-19 Inpatient JALIL, [facility] [id number] [place] 00:00:00 00:00:00 ERENDIRA [address] 2019-06-15 2019-06-15 Appointmen LUIS ALMENDAREZ Comprehensi [id number] [place] 09:00:00 09:00:00 t; CAIT ALMENDAREZ ve Sickle Physici HARINDER, M.D. Cell [place] daniela wilson M.D. 2019-02-19 2019-02-19 [facility] 1.2.840.114 [id number] 12:46:23 13:57:23 Visit , Dale MADDEN 350.1.13.10 IALTY 4.2.7.2.686 DARRAGH [id number] [id number] Results Test Description Test Time Test Comments Results Result Comments Source CARDIAC ENZYMES 2022-04-19 16:10:00 Test Item Value Reference Range Interpretation Comme nts HS Troponin I 1 Hr (test code = HS Troponin I 1 Hr) [facility] [id number] 16:10:00 Test Item Value Reference Range Interpretation Comments HS Troponin I 0 to 1 Hour Delta (test 0 1 code = HS Troponin I 0 to 1 Hour Delta) [facility] [id number] 16:10:00 Test Item Value Reference Range Interpretation Comments HS Troponin I 1 Hr (test code = HS 5 Troponin I 1 Hr) [facility] [id number] 16:10:00 Test Item Value Reference Range Interpretation Comments HS Troponin I 0 to 1 Hour Delta (test 0 1 code = HS Troponin I 0 to 1 Hour Delta) [facility] [id number] 16:10:00 Test Item Value Reference Range Interpretation Comments HS Troponin I 1 Hr (test code = HS 5 Troponin I 1 Hr) [facility] [id number] 16:10:00 Test Item Value Reference Range Interpretation Comments HS Troponin I 0 to 1 Hour Delta (test 0 1 code = HS Troponin I 0 to 1 Hour Delta) [facility] [id number] 16:10:00 Test Item Value Reference Range Interpretation Comments HS Troponin I 1 Hr (test code = HS 5 Troponin I 1 Hr) [facility] [id number] 16:10:00 Test Item Value Reference Range Interpretation Comments HS Troponin I 0 to 1 Hour Delta (test 0 1 code = HS Troponin I 0 to 1 Hour Delta) [facility] [id number] 15:00:00 Test Item Value Reference Range Interpretation Comments HS Troponin I Baseline (test code = HS 5 Troponin I Baseline) [facility] [id number] 15:00:00 Test Item Value Reference Range Interpretation Comments HS Troponin I Baseline (test code = HS 5 Troponin I Baseline) [facility] [id number] 15:00:00 Test Item Value Reference Range Interpretation Comments HS Troponin I Baseline (test code = HS 5 Troponin I Baseline) [facility] [id number] 15:00:00 Test Item Value Reference Range Interpretation Comments HS Troponin I Baseline (test code = HS 5 Troponin I Baseline) [facility]NbkjfmpABDYKKDBDC0554-95-74 12:52:00 Test Item Value Reference Range Interpretation Comments MCHC (test code = MCHC) 36.0 32.0-36.0 [facility] HospitalXtydfwsCYDDMFUDMZ9644-80-91 12:52:00 Test Item Value Reference Range Interpretation Comments RDW (test code = RDW) 24.7 11.5-14.5 [facility] HospitalDaojtbnCMEEUDRTBX4200-61-98 12:52:00 Test Item Value Reference Range Interpretation Comments Platelet (test code = Platelet) 381 133-450 [facility] HospitalUdinmusYSSHLNHFCY6450-03-94 12:52:00 Test Item Value Reference Range Interpretation Comments MPV (test code = MPV) 6.5 7.4-10.4 [facility] HospitalAazykliQLVNRTELGN8984-89-50 12:52:00 Test Item Value Reference Range Interpretation Comments WBC (test code = WBC) 7.9 3.7-10.4 [facility] HospitalBaaiejyNLPRTHHUXH7014-44-16 12:52:00 Test Item Value Reference Range Interpretation Comments Retic Perf (test code = Yes (04/19/22 7:52 AM) Retic Perf) [facility] HospitalDcgegmxYDLYKNWFQY5049-98-31 12:52:00 Test Item Value Reference Range Interpretation Comments Retic Auto (test code = Retic Auto) 11.8 0.5-1.5 [facility] HospitalMbqckqwBNWQVBXPHK4885-69-43 12:52:00 Test Item Value Reference Range Interpretation Comments RBC Morph (test code = See Note (04/19/22 7:52 RBC Morph) AM) [facility] HospitalQcojdauKEUIAANJIF0975-38-01 12:52:00 Test Item Value Reference Range Interpretation Comments Plt Morph (test code = Normal (04/19/22 7:52 Plt Morph) AM) [facility] HospitalPhtxnavIHPAMTRHWF5592-52-75 12:52:00 Test Item Value Reference Range Interpretation Comments Segs (test code = Segs) 53.0 45.0-75.0 [facility] HospitalPquqhnqSILGPXVZKT2671-57-91 12:52:00 Test Item Value Reference Range Interpretation Comments Bands (test code = 4.0 See_Comment [Automat ed message] The Bands) system which ge nerated this result transmit aisha reference range : <=11.0. The reference r duy was not used to interpr et this result as erin l/abnormal. [facility] HospitalEfdzjthTICVWXQDWW9488-98-66 12:52:00 Test Item Value Reference Range Interpretation Comments Lymphocytes (test code = Lymphocytes) 29.0 20.0-40.0 [place] 234572-09-19 12:52:00 Test Item Value Reference Range Interpretation Comments Monocytes (test code = Monocytes) 7.0 2.0-12.0 [facility] HospitalWypcabnUWZYVBAPXF2719-81-76 12:52:00 Test Item Value Reference Range Interpretation Comments Eosinophils (test code = 2.0 See_Comment [A utomated message] The Eosinophils) system which ge nerated this result tra nsmitted reference range : <=4.0. The reference r duy was not used to int erpret this result as normal/abnormal . [facility] HospitalOpgicpsFHTMEJEVBK1443-26-84 12:52:00 Test Item Value Reference Range Interpretation Comments Basophils (test code = 1.0 See_Comment [Aut omated message] The Basophils) system which ge nerated this result tra nsmitted reference range : <=1.0. The reference r duy was not used to int erpret this result as normal/abnormal . [facility] HospitalFmplttaNDEOFLWKYA0971-92-12 12:52:00 Test Item Value Reference Range Interpretation Comments Neutrophils # (test code = Neutrophils 4.5 1.5-8.1 #) [place] 234572-09-19 12:52:00 Test Item Value Reference Range Interpretation Comments Lymphocytes # (test code = Lymphocytes 2.3 1.0-5.5 #) [place] 234572-09-19 12:52:00 Test Item Value Reference Range Interpretation Comments Monocytes # (test code 0.6 See_Comment [Aut omated message] The = Monocytes #) system which generated this result tra nsmitted reference range : <=0.8. The reference r duy was not used to int erpret this result as normal/abnormal . [facility] HospitalXrzsazuTKKXKSBZYD6697-33-18 12:52:00 Test Item Value Reference Range Interpretation Comments Eosinophils # (test code 0.2 See_Comment [A utomated message] The = Eosinophils #) system whic h generated this result tra nsmitted reference range : <=0.5. The reference r duy was not used to int erpret this result as normal/abnormal . [facility] HospitalKgpfnklNQJJKTEODC2104-65-52 12:52:00 Test Item Value Reference Range Interpretation Comments Basophils # (test code 0.1 See_Comment [Aut omated message] The = Basophils #) system which generated this result tra nsmitted reference range : <=0.2. The reference r duy was not used to int erpret this result as normal/abnormal . [facility] HospitalFuflzdjFEDBFCNSOP5331-78-69 12:52:00 Test Item Value Reference Range Interpretation Comments Metamyelocytes (test code 3.0 See_Comment [ Automated message] = Metamyelocytes) The system which generated this result transmitted ref erence range: <=1.0. T he reference range was not used to int erpret this result as normal/abnormal . [facility] HospitalBrmvpwiASFFRXCTCW9219-58-79 12:52:00 Test Item Value Reference Range Interpretation Comments Myelocytes (test code = Myelocytes) 1.0 [facility] HospitalFilckllISSJLPNFNJ5906-91-66 12:52:00 Test Item Value Reference Range Interpretation Comments NRBC (test code = NRBC) 3 [facility] HospitalWbayeasYGPCONFGMI8506-21-00 12:52:00 Test Item Value Reference Range Interpretation Comments Anisocyte (test code = 2+ *ABN*(04/19/22 Anisocyte) 7:52 AM) [facility] HospitalSghaprnWHSRRFPYYP0630-35-75 12:52:00 Test Item Value Reference Range Interpretation Comments Microcyte (test code = 1+ *ABN*(04/19/22 Microcyte) 7:52 AM) [facility] HospitalZlenxttTNVIGPQVNQ5644-23-31 12:52:00 Test Item Value Reference Range Interpretation Comments Hypochrom (test code = 1+ (04/19/22 7:52 AM) Hypochrom) [facility] HospitalNglozivHTIBJZATUA8544-07-59 12:52:00 Test Item Value Reference Range Interpretation Comments Polychrom (test code = Moderate *ABN*(04/19/22 Polychrom) 7:52 AM) [facility] HospitalAqpxfqkZLFKDBJZXI1951-71-38 12:52:00 Test Item Value Reference Range Interpretation Comments Target Cell (test code Marked *ABN*(04/19/22 = Target Cell) 7:52 AM) [facility] HospitalPpfhzolVIQUYHEAOC1940-95-91 12:52:00 Test Item Value Reference Range Interpretation Comments Tear Cell (test code Moderate *ABN*(04/19/22 = Tear Cell) 7:52 AM) [place] 234572-09-19 12:52:00 Test Item Value Reference Range Interpretation Comments Schistocyte (test code = 1-3 per HPF Schistocyte) (04/19/22 7:52 AM) [facility] HospitalOegokhsUQKSGDQGSK9481-37-81 12:52:00 Test Item Value Reference Range Interpretation Comments Elliptocyte (test code = Slight *ABN*(04/19/22 Elliptocyte) 7:52 AM) [place] 234572-09-19 12:52:00 Test Item Value Reference Range Interpretation Comments Sickle Cell (test code Slight *ABN*(04/19/22 = Sickle Cell) 7:52 AM) [facility]2022-09-19 12:52:00 Test Item Value Reference Range Interpretation Comments Glucose Lvl (test code = Glucose Lvl) 98 70-99 [place] 261022-09-19 12:52:00 Test Item Value Reference Range Interpretation Comments BUN (test code = BUN) 8 - [place] 261022-09-19 12:52:00 Test Item Value Reference Range Interpretation Comments Creatinine Lvl (test code = Creatinine 0.55 0.50-1.40 Lvl) [facility]2022-09-19 12:52:00 Test Item Value Reference Range Interpretation Comments Sodium Lvl (test code = Sodium Lvl) 138 135-145 [place] 261022-09-19 12:52:00 Test Item Value Reference Range Interpretation Comments Potassium Lvl (test code = Potassium 3.9 3.5-5.1 Lvl) [place] 261022-09-19 12:52:00 Test Item Value Reference Range Interpretation Comments Chloride Lvl (test code = Chloride Lvl) 107 95-109 [place] 261022-09-19 12:52:00 Test Item Value Reference Range Interpretation Comments CO2 (test code = CO2) 26 24-32 [place] 261022-09-19 12:52:00 Test Item Value Reference Range Interpretation Comments Calcium Lvl (test code = Calcium Lvl) 8.8 8.5-10.5 [place] 261022-09-19 12:52:00 Test Item Value Reference Range Interpretation Comments Total Protein (test code = Total 8.2 6.4-8.4 Protein) [place] 261022-09-19 12:52:00 Test Item Value Reference Range Interpretation Comments Albumin Lvl (test code = Albumin Lvl) 4.6 3.5-5.0 [place] 261022-09-19 12:52:00 Test Item Value Reference Range Interpretation Comments ALT (test code = ALT) 23 See_Comment [Auto mated message] The system which ge nerated this result transmit aisha reference range : <=65. The reference range was not used to interpr et this result as erin l/abnormal. [facility]2022-09-19 12:52:00 Test Item Value Reference Range Interpretation Comments AST (test code = AST) 36 See_Comment [Auto mated message] The system which ge nerated this result transmit aisha reference range : <=37. The reference range was not used to interpr et this result as erin l/abnormal. [facility]2022-09-19 12:52:00 Test Item Value Reference Range Interpretation Comments Alk Phos (test code = Alk Phos) 104 39-136 [facility] JNWPK2451-47-14 12:52:00 Test Item Value Reference Range Interpretation Comments Bili Total (test code = Bili Total) 4.3 0.2-1.3 [place] 261022-09-19 12:52:00 Test Item Value Reference Range Interpretation Comments AGAP (test code = AGAP) 8.9 10.0-20.0 [place] 261022-09-19 12:52:00 Test Item Value Reference Range Interpretation Comments B/C Ratio (test code = B/C Ratio) 15 1 6-25 [facility]Mir[facility] MHPRH8548-35-88 12:52:00 Test Item Value Reference Range Interpretation Comments Globulin (test code = Globulin) 3.6 2.7-4.2 [facility] CZLMK8457-73-23 12:52:00 Test Item Value Reference Range Interpretation Comments A/G Ratio (test code = A/G Ratio) 1.3 1 0.7-1.6 [facility] [id number] 12:52:00 Test Item Value Reference Range Interpretation Comments eGFR (test code = eGFR) 144 [facility] HospitalGnpzheqOZWKSZOGWN6947-19-00 12:52:00 Test Item Value Reference Range Interpretation Comments RBC (test code = RBC) 2.66 4.70-6.10 [facility] HospitalUoapcgwRTCIQGAEMJ9466-85-08 12:52:00 Test Item Value Reference Range Interpretation Comments Hgb (test code = Hgb) 8.8 14.0-18.0 [facility] HospitalQwgevjoZZUFCHZQQW8126-01-34 12:52:00 Test Item Value Reference Range Interpretation Comments Hct (test code = Hct) 24.4 42.0-54.0 [facility] HospitalPbhwrroMAGHADGQZO2350-90-68 12:52:00 Test Item Value Reference Range Interpretation Comments MCV (test code = MCV) 91.6 80.0-94.0 [facility] HospitalZtyjgkwFRJGNBKDUX7994-61-33 12:52:00 Test Item Value Reference Range Interpretation Comments MCH (test code = MCH) 33.0 pg 27.0-31.0 [facility] HospitalRocnjpyAUVDGDVXWS5598-81-68 12:52:00 Test Item Value Reference Range Interpretation Comments MCHC (test code = MCHC) 36.0 32.0-36.0 [facility] HospitalAfdfdwoTNDSPMABFD6898-29-75 12:52:00 Test Item Value Reference Range Interpretation Comments RDW (test code = RDW) 24.7 11.5-14.5 [facility] HospitalYbvnfjjEKKTBYRIXT0236-41-23 12:52:00 Test Item Value Reference Range Interpretation Comments Platelet (test code = Platelet) 381 133-450 [facility] HospitalDucaqsbZUKSWGCYMI7864-04-41 12:52:00 Test Item Value Reference Range Interpretation Comments MPV (test code = MPV) 6.5 7.4-10.4 [facility] HospitalUqjnwlnCNXKRUHFMV2126-19-91 12:52:00 Test Item Value Reference Range Interpretation Comments WBC (test code = WBC) 7.9 3.7-10.4 [facility] HospitalUzoemsxWJSCTHCPBM6211-59-18 12:52:00 Test Item Value Reference Range Interpretation Comments Retic Perf (test code = Yes (04/19/22 7:52 AM) Retic Perf) [facility] HospitalMgedwbhZDCMBIDLJG5598-11-47 12:52:00 Test Item Value Reference Range Interpretation Comments Retic Auto (test code = Retic Auto) 11.8 0.5-1.5 [facility] HospitalMpvmpqrTUXWFFDCJO4041-54-62 12:52:00 Test Item Value Reference Range Interpretation Comments RBC Morph (test code = See Note (04/19/22 7:52 RBC Morph) AM) [facility] HospitalIbrtllqVZVNLMVUQY4143-74-79 12:52:00 Test Item Value Reference Range Interpretation Comments Plt Morph (test code = Normal (04/19/22 7:52 Plt Morph) AM) [facility] HospitalAwhhbrfFKZMUIDHDV8458-25-16 12:52:00 Test Item Value Reference Range Interpretation Comments Segs (test code = Segs) 53.0 45.0-75.0 [facility] HospitalYizzwmzZUOFVOIBHZ9369-17-98 12:52:00 Test Item Value Reference Range Interpretation Comments Bands (test code = 4.0 See_Comment [Automat ed message] The Bands) system which ge nerated this result transmit aisha reference range : <=11.0. The reference r duy was not used to interpr et this result as erin l/abnormal. [facility] HospitalZzravoaFBJYCKHETQ9736-67-07 12:52:00 Test Item Value Reference Range Interpretation Comments Lymphocytes (test code = Lymphocytes) 29.0 20.0-40.0 [facility] HospitalZpkzzyaIZGZTUVWCW3148-98-59 12:52:00 Test Item Value Reference Range Interpretation Comments Monocytes (test code = Monocytes) 7.0 2.0-12.0 [place] 234572-09-19 12:52:00 Test Item Value Reference Range Interpretation Comments Eosinophils (test code = 2.0 See_Comment [A utomated message] The Eosinophils) system which ge nerated this result tra nsmitted reference range : <=4.0. The reference r duy was not used to int erpret this result as normal/abnormal . [facility] HospitalWtggfuwKNWJKYFGAS5606-86-03 12:52:00 Test Item Value Reference Range Interpretation Comments Basophils (test code = 1.0 See_Comment [Aut omated message] The Basophils) system which ge nerated this result tra nsmitted reference range : <=1.0. The reference r duy was not used to int erpret this result as normal/abnormal . [facility] HospitalBhkjmkeIKXBPSTNUU4838-69-53 12:52:00 Test Item Value Reference Range Interpretation Comments Neutrophils # (test code = Neutrophils 4.5 1.5-8.1 #) [facility] HospitalOouywahYQITIWLDXY0586-27-19 12:52:00 Test Item Value Reference Range Interpretation Comments Lymphocytes # (test code = Lymphocytes 2.3 1.0-5.5 #) [facility] HospitalCtsayekNHWNJAQFSJ0344-62-01 12:52:00 Test Item Value Reference Range Interpretation Comments Monocytes # (test code 0.6 See_Comment [Aut omated message] The = Monocytes #) system which generated this result tra nsmitted reference range : <=0.8. The reference r duy was not used to int erpret this result as normal/abnormal . [facility] HospitalUdmexdmQNAZYBOPVZ8358-41-66 12:52:00 Test Item Value Reference Range Interpretation Comments Eosinophils # (test code 0.2 See_Comment [A utomated message] The = Eosinophils #) system whic h generated this result tra nsmitted reference range : <=0.5. The reference r duy was not used to int erpret this result as normal/abnormal . [facility] HospitalZdcvunyFAXPOJETCR4745-43-24 12:52:00 Test Item Value Reference Range Interpretation Comments Basophils # (test code 0.1 See_Comment [Aut omated message] The = Basophils #) system which generated this result tra nsmitted reference range : <=0.2. The reference r duy was not used to int erpret this result as normal/abnormal . [facility] HospitalCrgovyiQMMRIGTWYS4456-81-94 12:52:00 Test Item Value Reference Range Interpretation Comments Metamyelocytes (test code 3.0 See_Comment [ Automated message] = Metamyelocytes) The system which generated this result transmitted ref erence range: <=1.0. T he reference range was not used to int erpret this result as normal/abnormal . [facility] HospitalAfkknvvMWJXBBNCYF2215-44-53 12:52:00 Test Item Value Reference Range Interpretation Comments Myelocytes (test code = Myelocytes) 1.0 [place] 234572-09-19 12:52:00 Test Item Value Reference Range Interpretation Comments NRBC (test code = NRBC) 3 [facility] HospitalZfgeztmNCLQKEEQBR1583-85-36 12:52:00 Test Item Value Reference Range Interpretation Comments Anisocyte (test code = 2+ *ABN*(04/19/22 Anisocyte) 7:52 AM) [facility] HospitalBerahovDFQTFIEHJY4505-03-14 12:52:00 Test Item Value Reference Range Interpretation Comments Microcyte (test code = 1+ *ABN*(04/19/22 Microcyte) 7:52 AM) [facility] HospitalHumvijsRYOMNPZOGV3058-11-03 12:52:00 Test Item Value Reference Range Interpretation Comments Hypochrom (test code = 1+ (04/19/22 7:52 AM) Hypochrom) [facility] HospitalIvmmapnSTBXLZDXPX0370-39-97 12:52:00 Test Item Value Reference Range Interpretation Comments Polychrom (test code = Moderate *ABN*(04/19/22 Polychrom) 7:52 AM) [facility] HospitalCrfiwqkQDAXRXKSJR7929-11-36 12:52:00 Test Item Value Reference Range Interpretation Comments Target Cell (test code Marked *ABN*(04/19/22 = Target Cell) 7:52 AM) [facility] HospitalHzoilrcSHDWCZFVVF9823-02-23 12:52:00 Test Item Value Reference Range Interpretation Comments Tear Cell (test code Moderate *ABN*(04/19/22 = Tear Cell) 7:52 AM) [facility] HospitalEapsansDOOYTLCZXO5576-62-09 12:52:00 Test Item Value Reference Range Interpretation Comments Schistocyte (test code = 1-3 per HPF Schistocyte) (04/19/22 7:52 AM) [facility] HospitalBowxzpgKNKRIONISM7537-40-48 12:52:00 Test Item Value Reference Range Interpretation Comments Elliptocyte (test code = Slight *ABN*(04/19/22 Elliptocyte) 7:52 AM) [facility] HospitalMmaypzdTVZAZVQFTD0236-16-93 12:52:00 Test Item Value Reference Range Interpretation Comments Sickle Cell (test code Slight *ABN*(04/19/22 = Sickle Cell) 7:52 AM) [facility]2022-09-19 12:52:00 Test Item Value Reference Range Interpretation Comments Glucose Lvl (test code = Glucose Lvl) 98 70-99 [place] 261022-09-19 12:52:00 Test Item Value Reference Range Interpretation Comments BUN (test code = BUN) 8 7-22 [place] 261022-09-19 12:52:00 Test Item Value Reference Range Interpretation Comments Creatinine Lvl (test code = Creatinine 0.55 0.50-1.40 Lvl) [place] 261022-09-19 12:52:00 Test Item Value Reference Range Interpretation Comments Sodium Lvl (test code = Sodium Lvl) 138 135-145 [place] 261022-09-19 12:52:00 Test Item Value Reference Range Interpretation Comments Potassium Lvl (test code = Potassium 3.9 3.5-5.1 Lvl) [place] 261022-09-19 12:52:00 Test Item Value Reference Range Interpretation Comments Chloride Lvl (test code = Chloride Lvl) 107 95-109 [place] 261022-09-19 12:52:00 Test Item Value Reference Range Interpretation Comments CO2 (test code = CO2) 26 24-32 [place] 261022-09-19 12:52:00 Test Item Value Reference Range Interpretation Comments Calcium Lvl (test code = Calcium Lvl) 8.8 8.5-10.5 [place] 261022-09-19 12:52:00 Test Item Value Reference Range Interpretation Comments Total Protein (test code = Total 8.2 6.4-8.4 Protein) [place] 261022-09-19 12:52:00 Test Item Value Reference Range Interpretation Comments Albumin Lvl (test code = Albumin Lvl) 4.6 3.5-5.0 [place] 261022-09-19 12:52:00 Test Item Value Reference Range Interpretation Comments ALT (test code = ALT) 23 See_Comment [Auto mated message] The system which ge nerated this result transmit aisha reference range : <=65. The reference range was not used to interpr et this result as erin l/abnormal. [place] 261022-09-19 12:52:00 Test Item Value Reference Range Interpretation Comments AST (test code = AST) 36 See_Comment [Auto mated message] The system which ge nerated this result transmit aisha reference range : <=37. The reference range was not used to interpr et this result as erin l/abnormal. [facility]2022-09-19 12:52:00 Test Item Value Reference Range Interpretation Comments Alk Phos (test code = Alk Phos) 104 39-136 [facility]2022-09-19 12:52:00 Test Item Value Reference Range Interpretation Comments Bili Total (test code = Bili Total) 4.3 0.2-1.3 [facility]2022-09-19 12:52:00 Test Item Value Reference Range Interpretation Comments AGAP (test code = AGAP) 8.9 10.0-20.0 [facility]2022-09-19 12:52:00 Test Item Value Reference Range Interpretation Comments B/C Ratio (test code = B/C Ratio) 15 1 6-25 [facility]2022-09-19 12:52:00 Test Item Value Reference Range Interpretation Comments Globulin (test code = Globulin) 3.6 2.7-4.2 [facility]2022-09-19 12:52:00 Test Item Value Reference Range Interpretation Comments A/G Ratio (test code = A/G Ratio) 1.3 1 0.7-1.6 [facility]2022-09-19 12:52:00 Test Item Value Reference Range Interpretation Comments eGFR (test code = eGFR) 144 [facility] HospitalFztsutmMDYYNCEYWS2338-20-05 12:52:00 Test Item Value Reference Range Interpretation Comments RBC (test code = RBC) 2.66 4.70-6.10 [facility] HospitalUwzxmebINTPQCKDQJ5213-19-28 12:52:00 Test Item Value Reference Range Interpretation Comments Hgb (test code = Hgb) 8.8 14.0-18.0 [place] 234572-09-19 12:52:00 Test Item Value Reference Range Interpretation Comments Hct (test code = Hct) 24.4 42.0-54.0 [facility] HospitalUaadkwoZPKGQBNUEC6790-28-15 12:52:00 Test Item Value Reference Range Interpretation Comments MCV (test code = MCV) 91.6 80.0-94.0 [place] 234572-09-19 12:52:00 Test Item Value Reference Range Interpretation Comments MCH (test code = MCH) 33.0 pg 27.0-31.0 [place] 234572-09-19 12:52:00 Test Item Value Reference Range Interpretation Comments MCHC (test code = MCHC) 36.0 32.0-36.0 [facility] HospitalTpamruyHVSWTPBZHK7054-04-39 12:52:00 Test Item Value Reference Range Interpretation Comments RDW (test code = RDW) 24.7 11.5-14.5 [facility] HospitalEcofyuoSRYHPGKVYZ5945-81-46 12:52:00 Test Item Value Reference Range Interpretation Comments Platelet (test code = Platelet) 381 133-450 [facility] HospitalLkhrppkFEGQLUGRSJ0438-67-20 12:52:00 Test Item Value Reference Range Interpretation Comments MPV (test code = MPV) 6.5 7.4-10.4 [place] 234572-09-19 12:52:00 Test Item Value Reference Range Interpretation Comments WBC (test code = WBC) 7.9 3.7-10.4 [facility] HospitalZfmzmvcELYGUCCAZE3377-09-66 12:52:00 Test Item Value Reference Range Interpretation Comments Retic Perf (test code = Yes (04/19/22 7:52 AM) Retic Perf) [facility] HospitalKcjixbgONDKUKSOOU0579-38-25 12:52:00 Test Item Value Reference Range Interpretation Comments Retic Auto (test code = Retic Auto) 11.8 0.5-1.5 [facility] HospitalWbyaunlCEVNIENZPN2354-26-94 12:52:00 Test Item Value Reference Range Interpretation Comments RBC Morph (test code = See Note (04/19/22 7:52 RBC Morph) AM) [facility] HospitalAijyqvtOVLVPOFWSG6001-20-59 12:52:00 Test Item Value Reference Range Interpretation Comments Plt Morph (test code = Normal (04/19/22 7:52 Plt Morph) AM) [facility] HospitalQjctnzpTZUSSZXPVK2792-02-79 12:52:00 Test Item Value Reference Range Interpretation Comments Segs (test code = Segs) 53.0 45.0-75.0 [facility] HospitalMqbeihjTLNLFCRFPA4462-01-62 12:52:00 Test Item Value Reference Range Interpretation Comments Bands (test code = 4.0 See_Comment [Automat ed message] The Bands) system which ge nerated this result transmit aisha reference range : <=11.0. The reference r duy was not used to interpr et this result as erin l/abnormal. [facility] HospitalVebkmbaDRMYGFWUSX9272-02-31 12:52:00 Test Item Value Reference Range Interpretation Comments Lymphocytes (test code = Lymphocytes) 29.0 20.0-40.0 [place] 234572-09-19 12:52:00 Test Item Value Reference Range Interpretation Comments Monocytes (test code = Monocytes) 7.0 2.0-12.0 [place] 234572-09-19 12:52:00 Test Item Value Reference Range Interpretation Comments Eosinophils (test code = 2.0 See_Comment [A utomated message] The Eosinophils) system which ge nerated this result tra nsmitted reference range : <=4.0. The reference r duy was not used to int erpret this result as normal/abnormal . [place] 234572-09-19 12:52:00 Test Item Value Reference Range Interpretation Comments Basophils (test code = 1.0 See_Comment [Aut omated message] The Basophils) system which ge nerated this result tra nsmitted reference range : <=1.0. The reference r duy was not used to int erpret this result as normal/abnormal . [facility] HospitalEbashwzTNEWNMDCBO0096-14-66 12:52:00 Test Item Value Reference Range Interpretation Comments Neutrophils # (test code = Neutrophils 4.5 1.5-8.1 #) [facility] HospitalDdyrewkFQJWPKOKUA7256-21-55 12:52:00 Test Item Value Reference Range Interpretation Comments Lymphocytes # (test code = Lymphocytes 2.3 1.0-5.5 #) [facility] HospitalLrmofgwOBFNUWJVWH3436-24-46 12:52:00 Test Item Value Reference Range Interpretation Comments Monocytes # (test code 0.6 See_Comment [Aut omated message] The = Monocytes #) system which generated this result tra nsmitted reference range : <=0.8. The reference r dyu was not used to int erpret this result as normal/abnormal . [place] 234572-09-19 12:52:00 Test Item Value Reference Range Interpretation Comments Eosinophils # (test code 0.2 See_Comment [A utomated message] The = Eosinophils #) system whic h generated this result tra nsmitted reference range : <=0.5. The reference r duy was not used to int erpret this result as normal/abnormal . [place] 234572-09-19 12:52:00 Test Item Value Reference Range Interpretation Comments Basophils # (test code 0.1 See_Comment [Aut omated message] The = Basophils #) system which generated this result tra nsmitted reference range : <=0.2. The reference r duy was not used to int erpret this result as normal/abnormal . [facility] HospitalJrkrxleEIIRNAVBTQ2888-29-70 12:52:00 Test Item Value Reference Range Interpretation Comments Metamyelocytes (test code 3.0 See_Comment [ Automated message] = Metamyelocytes) The system which generated this result transmitted ref erence range: <=1.0. T he reference range was not used to int erpret this result as normal/abnormal . [facility] HospitalDfvtnpfMZOFEBKJUL9932-56-65 12:52:00 Test Item Value Reference Range Interpretation Comments Myelocytes (test code = Myelocytes) 1.0 [facility] HospitalXnvxwfxDFIZMHRDBE1471-81-46 12:52:00 Test Item Value Reference Range Interpretation Comments NRBC (test code = NRBC) 3 [facility] HospitalAseplemMXIIBFPFGH0413-35-93 12:52:00 Test Item Value Reference Range Interpretation Comments Anisocyte (test code = 2+ *ABN*(04/19/22 Anisocyte) 7:52 AM) [facility] HospitalKjhpmyoKCWVHNSDHO0335-85-41 12:52:00 Test Item Value Reference Range Interpretation Comments Microcyte (test code = 1+ *ABN*(04/19/22 Microcyte) 7:52 AM) [facility] HospitalBzjayvdGQUUAWPAOI6166-81-48 12:52:00 Test Item Value Reference Range Interpretation Comments Hypochrom (test code = 1+ (04/19/22 7:52 AM) Hypochrom) [facility] HospitalCjtrgimFUVLWQQKQF7237-37-43 12:52:00 Test Item Value Reference Range Interpretation Comments Polychrom (test code = Moderate *ABN*(04/19/22 Polychrom) 7:52 AM) [facility] HospitalKbkahwxTVFLFCZEPF4792-66-51 12:52:00 Test Item Value Reference Range Interpretation Comments Target Cell (test code Marked *ABN*(04/19/22 = Target Cell) 7:52 AM) [facility] HospitalYeryzumRNVZHGHXHK3319-26-95 12:52:00 Test Item Value Reference Range Interpretation Comments Tear Cell (test code Moderate *ABN*(04/19/22 = Tear Cell) 7:52 AM) [place] 234572-09-19 12:52:00 Test Item Value Reference Range Interpretation Comments Schistocyte (test code = 1-3 per HPF Schistocyte) (04/19/22 7:52 AM) [place] 234572-09-19 12:52:00 Test Item Value Reference Range Interpretation Comments Elliptocyte (test code = Slight *ABN*(04/19/22 Elliptocyte) 7:52 AM) [place] 234572-09-19 12:52:00 Test Item Value Reference Range Interpretation Comments Sickle Cell (test code Slight *ABN*(04/19/22 = Sickle Cell) 7:52 AM) [place] 261022-09-19 12:52:00 Test Item Value Reference Range Interpretation Comments Glucose Lvl (test code = Glucose Lvl) 98 70-99 [place] 261022-09-19 12:52:00 Test Item Value Reference Range Interpretation Comments BUN (test code = BUN) 8 - [place] 261022-09-19 12:52:00 Test Item Value Reference Range Interpretation Comments Creatinine Lvl (test code = Creatinine 0.55 0.50-1.40 Lvl) [facility]2022-09-19 12:52:00 Test Item Value Reference Range Interpretation Comments Sodium Lvl (test code = Sodium Lvl) 138 135-145 [facility]2022-09-19 12:52:00 Test Item Value Reference Range Interpretation Comments Potassium Lvl (test code = Potassium 3.9 3.5-5.1 Lvl) [facility]2022-09-19 12:52:00 Test Item Value Reference Range Interpretation Comments Chloride Lvl (test code = Chloride Lvl) 107 95-109 [place] 261022-09-19 12:52:00 Test Item Value Reference Range Interpretation Comments CO2 (test code = CO2) 26 24-32 [place] 261022-09-19 12:52:00 Test Item Value Reference Range Interpretation Comments Calcium Lvl (test code = Calcium Lvl) 8.8 8.5-10.5 [place] 261022-09-19 12:52:00 Test Item Value Reference Range Interpretation Comments Total Protein (test code = Total 8.2 6.4-8.4 Protein) [facility]2022-09-19 12:52:00 Test Item Value Reference Range Interpretation Comments Albumin Lvl (test code = Albumin Lvl) 4.6 3.5-5.0 [place] 261022-09-19 12:52:00 Test Item Value Reference Range Interpretation Comments ALT (test code = ALT) 23 See_Comment [Auto mated message] The system which ge nerated this result transmit aisha reference range : <=65. The reference range was not used to interpr et this result as erin l/abnormal. [place] 261022-09-19 12:52:00 Test Item Value Reference Range Interpretation Comments AST (test code = AST) 36 See_Comment [Auto mated message] The system which ge nerated this result transmit aisha reference range : <=37. The reference range was not used to interpr et this result as erin l/abnormal. [facility]2022-09-19 12:52:00 Test Item Value Reference Range Interpretation Comments Alk Phos (test code = Alk Phos) 104 39-136 [facility]2022-09-19 12:52:00 Test Item Value Reference Range Interpretation Comments Bili Total (test code = Bili Total) 4.3 0.2-1.3 [facility]2022-09-19 12:52:00 Test Item Value Reference Range Interpretation Comments AGAP (test code = AGAP) 8.9 10.0-20.0 [place] 261022-09-19 12:52:00 Test Item Value Reference Range Interpretation Comments B/C Ratio (test code = B/C Ratio) 15 1 6-25 [place] 261022-09-19 12:52:00 Test Item Value Reference Range Interpretation Comments Globulin (test code = Globulin) 3.6 2.7-4.2 [place] 261022-09-19 12:52:00 Test Item Value Reference Range Interpretation Comments A/G Ratio (test code = A/G Ratio) 1.3 1 0.7-1.6 [place] [address]-09-19 12:52:00 Test Item Value Reference Range Interpretation Comments eGFR (test code = eGFR) 144 [facility] HospitalHncvnraNDYHDYDVEZ8074-54-33 12:52:00 Test Item Value Reference Range Interpretation Comments RBC (test code = RBC) 2.66 4.70-6.10 [facility] HospitalNqdjtldPMASSYPSMS7037-93-92 12:52:00 Test Item Value Reference Range Interpretation Comments Hgb (test code = Hgb) 8.8 14.0-18.0 [facility] HospitalOfmzpnzVKEZKLZFNZ4892-63-42 12:52:00 Test Item Value Reference Range Interpretation Comments Hct (test code = Hct) 24.4 42.0-54.0 [facility] HospitalCqefhphHSCZMMKSWC1419-72-98 12:52:00 Test Item Value Reference Range Interpretation Comments MCV (test code = MCV) 91.6 80.0-94.0 [facility] HospitalOqynxvdIPQPMDVRMN4923-75-82 12:52:00 Test Item Value Reference Range Interpretation Comments MCH (test code = MCH) 33.0 pg 27.0-31.0 [facility] HospitalJczvossSDFHPRMHDU9316-08-40 12:52:00 Test Item Value Reference Range Interpretation Comments MCHC (test code = MCHC) 36.0 32.0-36.0 [facility] HospitalHtpfthzSWYSIYUWLE7107-62-72 12:52:00 Test Item Value Reference Range Interpretation Comments RDW (test code = RDW) 24.7 11.5-14.5 [facility] HospitalJhnfqexISTXNOXMVO9272-43-48 12:52:00 Test Item Value Reference Range Interpretation Comments Platelet (test code = Platelet) 381 133-450 [facility] HospitalUohxvffTFLFPQXKSZ9026-69-66 12:52:00 Test Item Value Reference Range Interpretation Comments MPV (test code = MPV) 6.5 7.4-10.4 [facility] HospitalGtiktmnFFLOSYKDWV0349-76-21 12:52:00 Test Item Value Reference Range Interpretation Comments WBC (test code = WBC) 7.9 3.7-10.4 [facility] HospitalYypjhkwZTKUHRHFOG8918-29-60 12:52:00 Test Item Value Reference Range Interpretation Comments Retic Perf (test code = Yes (04/19/22 7:52 AM) Retic Perf) [facility] HospitalOemesacYWSUTKSPPH5733-18-21 12:52:00 Test Item Value Reference Range Interpretation Comments Retic Auto (test code = Retic Auto) 11.8 0.5-1.5 [place] 234572-09-19 12:52:00 Test Item Value Reference Range Interpretation Comments RBC Morph (test code = See Note (04/19/22 7:52 RBC Morph) AM) [facility] HospitalPcylkgxKSWOMLHPFT2539-03-71 12:52:00 Test Item Value Reference Range Interpretation Comments Plt Morph (test code = Normal (04/19/22 7:52 Plt Morph) AM) [facility] HospitalHnohnkxQNFBTMEFIJ9133-15-02 12:52:00 Test Item Value Reference Range Interpretation Comments Segs (test code = Segs) 53.0 45.0-75.0 [place] 234572-09-19 12:52:00 Test Item Value Reference Range Interpretation Comments Bands (test code = 4.0 See_Comment [Automat ed message] The Bands) system which ge nerated this result transmit aisha reference range : <=11.0. The reference r duy was not used to interpr et this result as erin l/abnormal. [facility] HospitalUnrbrsuEOPYAFKDHN0694-70-77 12:52:00 Test Item Value Reference Range Interpretation Comments Lymphocytes (test code = Lymphocytes) 29.0 20.0-40.0 [place] 234572-09-19 12:52:00 Test Item Value Reference Range Interpretation Comments Monocytes (test code = Monocytes) 7.0 2.0-12.0 [place] 234572-09-19 12:52:00 Test Item Value Reference Range Interpretation Comments Eosinophils (test code = 2.0 See_Comment [A utomated message] The Eosinophils) system which ge nerated this result tra nsmitted reference range : <=4.0. The reference r duy was not used to int erpret this result as normal/abnormal . [facility] HospitalQbgygleKUJEARUFEL8917-95-97 12:52:00 Test Item Value Reference Range Interpretation Comments Basophils (test code = 1.0 See_Comment [Aut omated message] The Basophils) system which ge nerated this result tra nsmitted reference range : <=1.0. The reference r duy was not used to int erpret this result as normal/abnormal . [place] 234572-09-19 12:52:00 Test Item Value Reference Range Interpretation Comments Neutrophils # (test code = Neutrophils 4.5 1.5-8.1 #) [place] 234572-09-19 12:52:00 Test Item Value Reference Range Interpretation Comments Lymphocytes # (test code = Lymphocytes 2.3 1.0-5.5 #) [facility] HospitalZytejgkCPRHBSBUML3694-58-40 12:52:00 Test Item Value Reference Range Interpretation Comments Monocytes # (test code 0.6 See_Comment [Aut omated message] The = Monocytes #) system which generated this result tra nsmitted reference range : <=0.8. The reference r duy was not used to int erpret this result as normal/abnormal . [facility] HospitalEwkpfuhFLUURAIQLI0299-30-08 12:52:00 Test Item Value Reference Range Interpretation Comments Eosinophils # (test code 0.2 See_Comment [A utomated message] The = Eosinophils #) system whic h generated this result tra nsmitted reference range : <=0.5. The reference r duy was not used to int erpret this result as normal/abnormal . [facility] HospitalTxdbastMBUGLAEWCR4551-12-85 12:52:00 Test Item Value Reference Range Interpretation Comments Basophils # (test code 0.1 See_Comment [Aut omated message] The = Basophils #) system which generated this result tra nsmitted reference range : <=0.2. The reference r duy was not used to int erpret this result as normal/abnormal . [facility] HospitalGfzinqqTUHXIHADJL3959-90-50 12:52:00 Test Item Value Reference Range Interpretation Comments Metamyelocytes (test code 3.0 See_Comment [ Automated message] = Metamyelocytes) The system which generated this result transmitted ref erence range: <=1.0. T he reference range was not used to int erpret this result as normal/abnormal . [facility] HospitalQhzbesdMLQQFDFYJP8829-48-89 12:52:00 Test Item Value Reference Range Interpretation Comments Myelocytes (test code = Myelocytes) 1.0 [facility] HospitalTuhijkyPWOQCQQFLJ1878-74-86 12:52:00 Test Item Value Reference Range Interpretation Comments NRBC (test code = NRBC) 3 [facility] HospitalVatrmebRJAROBDKUM9162-49-98 12:52:00 Test Item Value Reference Range Interpretation Comments Anisocyte (test code = 2+ *ABN*(04/19/22 Anisocyte) 7:52 AM) [facility] HospitalVxjvmwoIXIVEUNVYT6162-01-46 12:52:00 Test Item Value Reference Range Interpretation Comments Microcyte (test code = 1+ *ABN*(04/19/22 Microcyte) 7:52 AM) [place] 234572-09-19 12:52:00 Test Item Value Reference Range Interpretation Comments Hypochrom (test code = 1+ (04/19/22 7:52 AM) Hypochrom) [place] 234572-09-19 12:52:00 Test Item Value Reference Range Interpretation Comments Polychrom (test code = Moderate *ABN*(04/19/22 Polychrom) 7:52 AM) [facility] HospitalFfofozlZEKFQPQIXP9656-84-81 12:52:00 Test Item Value Reference Range Interpretation Comments Target Cell (test code Marked *ABN*(04/19/22 = Target Cell) 7:52 AM) [facility] HospitalNqofztgMVXTSXCDBI6246-75-01 12:52:00 Test Item Value Reference Range Interpretation Comments Tear Cell (test code Moderate *ABN*(04/19/22 = Tear Cell) 7:52 AM) [place] 234572-09-19 12:52:00 Test Item Value Reference Range Interpretation Comments Schistocyte (test code = 1-3 per HPF Schistocyte) (04/19/22 7:52 AM) [facility]jz[facility]ujTSRWEZWRBM7726-79-11 12:52:00 Test Item Value Reference Range Interpretation Comments Elliptocyte (test code = Slight *ABN*(04/19/22 Elliptocyte) 7:52 AM) [facility] HospitalCtjebgiNDOJIDRPPU7306-21-89 12:52:00 Test Item Value Reference Range Interpretation Comments Sickle Cell (test code Slight *ABN*(04/19/22 = Sickle Cell) 7:52 AM) [facility]2022-09-19 12:52:00 Test Item Value Reference Range Interpretation Comments Glucose Lvl (test code = Glucose Lvl) 98 70-99 [facility]2022-09-19 12:52:00 Test Item Value Reference Range Interpretation Comments BUN (test code = BUN) 02-19 [facility]2022-09-19 12:52:00 Test Item Value Reference Range Interpretation Comments Creatinine Lvl (test code = Creatinine 0.55 0.50-1.40 Lvl) [facility]2022-09-19 12:52:00 Test Item Value Reference Range Interpretation Comments Sodium Lvl (test code = Sodium Lvl) 138 135-145 [facility]2022-09-19 12:52:00 Test Item Value Reference Range Interpretation Comments Potassium Lvl (test code = Potassium 3.9 3.5-5.1 Lvl) [place] 261022-09-19 12:52:00 Test Item Value Reference Range Interpretation Comments Chloride Lvl (test code = Chloride Lvl) 107 95-109 [place] 261022-09-19 12:52:00 Test Item Value Reference Range Interpretation Comments CO2 (test code = CO2) 26 24-32 [place] 261022-09-19 12:52:00 Test Item Value Reference Range Interpretation Comments Calcium Lvl (test code = Calcium Lvl) 8.8 8.5-10.5 [place] 261022-09-19 12:52:00 Test Item Value Reference Range Interpretation Comments Total Protein (test code = Total 8.2 6.4-8.4 Protein) [place] 261022-09-19 12:52:00 Test Item Value Reference Range Interpretation Comments Albumin Lvl (test code = Albumin Lvl) 4.6 3.5-5.0 [place] 261022-09-19 12:52:00 Test Item Value Reference Range Interpretation Comments ALT (test code = ALT) 23 See_Comment [Auto mated message] The system which ge nerated this result transmit aisha reference range : <=65. The reference range was not used to interpr et this result as erin l/abnormal. [place] 261022-09-19 12:52:00 Test Item Value Reference Range Interpretation Comments AST (test code = AST) 36 See_Comment [Auto mated message] The system which ge nerated this result transmit aisha reference range : <=37. The reference range was not used to interpr et this result as erin l/abnormal. [place] 261022-09-19 12:52:00 Test Item Value Reference Range Interpretation Comments Alk Phos (test code = Alk Phos) 104 39-136 [place] 261022-09-19 12:52:00 Test Item Value Reference Range Interpretation Comments Bili Total (test code = Bili Total) 4.3 0.2-1.3 [place] 261022-09-19 12:52:00 Test Item Value Reference Range Interpretation Comments AGAP (test code = AGAP) 8.9 10.0-20.0 [facility] [id number] 12:52:00 Test Item Value Reference Range Interpretation Comments B/C Ratio (test code = B/C Ratio) 15 1 6-25 [facility] [id number] 12:52:00 Test Item Value Reference Range Interpretation Comments Globulin (test code = Globulin) 3.6 2.7-4.2 [facility] [id number] 12:52:00 Test Item Value Reference Range Interpretation Comments A/G Ratio (test code = A/G Ratio) 1.3 1 0.7-1.6 [facility] [id number] 12:52:00 Test Item Value Reference Range Interpretation Comments eGFR (test code = eGFR) 144 [facility]MzghwekGLFTHZBCHB1627-18-98 12:52:00 Test Item Value Reference Range Interpretation Comments RBC (test code = RBC) 2.66 4.70-6.10 [facility] HospitalBqopmskEYUBKQDLXJ1967-01-40 12:52:00 Test Item Value Reference Range Interpretation Comments Hgb (test code = Hgb) 8.8 14.0-18.0 [facility] HospitalPswdwvkROUAFIAVAE4869-21-55 12:52:00 Test Item Value Reference Range Interpretation Comments Hct (test code = Hct) 24.4 42.0-54.0 [facility] HospitalIuxkwlxKHGRXCFVIU6628-82-15 12:52:00 Test Item Value Reference Range Interpretation Comments MCV (test code = MCV) 91.6 80.0-94.0 [facility]NgjtimnRJMISWVIZL1678-23-37 12:52:00 Test Item Value Reference Range Interpretation Comments MCH (test code = MCH) 33.0 pg 27.0-31.0 [facility] and cdbavgpqwour3985-77-38 14:00:00 Test Item Value Reference Interpretation Comments [...] Information: ? ?Site ID: RGA ? ?Name: [employer] [facility] ? ?Address: [address] [place] [id number] ? ?Director: JOSÉ VEGA MD Lab Interpretation Abnormal (test code = 21884-3) [facility] [id number] 14:00:00 Test Item Value Reference Range Interpretation Comments GLUCOSE (test code = 72 mg/dL 65-99 ? 2345-7) Fasting referen ce interval UREA NITROGEN (BUN) 9 mg/dL 7-25 (test code = 3094-0) CREATININE (test 0.49 mg/dL 0.6-1.24 L code = 2160-0) EGFR (test code = See_Comment The eGFR i s based [id number]) on the CKD-EPI 2020 equation. To calculate [...] . SODIUM (test code = 137 mmol/L 549-986 4400-2) POTASSIUM (test code 4.2 mmol/L 3.5-5.3 = 2823-3) CHLORIDE (test code 103 mmol/L 98-110 = 2075-0) CARBON DIOXIDE (test 25 mmol/L 20-32 code = 2027-9) CALCIUM (test code = 9.2 mg/dL 8.6-10.3 09127-7) PROTEIN, TOTAL (test 7.3 g/dL 6.1-8.1 code = 2885-2) ALBUMIN (test code = 4.7 g/dL 3.6-5.1 1751-7) GLOBULIN (test code See_Comment [Automa aisha = 37785-4) message] The system which generated this result [...] Information: ? ?Site ID: RGA ? ?Name: [employer] [facility] ? ?Address: [address] [place] [address] ? ?Director: JOSÉ VEGA MD Lab Interpretation Abnormal (test code = 20466-9) [facility] [place], TXLact[place] jyiwbibahhywj4995-30-70 14:00:00 Test Item Value Reference Range Interpretation Comments LD (test code = 18701-0) 549 U/L 100-220 H RAC (test code = RAC) Performing Organization Information: ? ?Site ID: RGA ? ?Name: [employer] [facility] ? ?Address: [address] [place] [address] ? ?Director: JOSÉ VEGA MD Lab Interpretation (test Abnormal code = 60256-7) MD EqvpkxTsuqkcwybwszv6806-78-55 14:00:00 Test Item Value Reference Range Interpretation Comments RETICULOCYTE COUNT, 12 % AUTOMATED (test code = 94492-7) RETICULOCYTE, See_Comment H [Automated ABSOLUTE (test code message] The = 91233-3) system which generated this result transmitted reference range : 06435 - 86448 cells/uL. The reference range was not used to interpret this result as normal/abnormal . RAC (test code = Performing RAC) Organization Information: ? ?Site ID: RGA ? ?Name: [employer] [facility] ? ?Address: [address] [place] [address] ? ?Director: JOSÉ VEGA MD Lab Interpretation Abnormal (test code = 00982-4) MD HealthUrinalysis with reflex tzjxgugzkxl7389-28-39 11:00:00 Test Item Value Reference Range Interpretation Comments COLOR (test NOT DONE TEST NOT PERFOR MED code = 5778-6) Improper spec imen submitted.If indicated, plea se re-submitin a [facility] standard yellow-topurine tube. RAC (test code Performing = RAC) Organization Information: ? ?Site ID: RGA ? ?Name: [employer] [facility] ? ?Address: [address] [place] [address] ? ?Director: JOSÉ VEGA MD [facility] [place], TXCHEM [id number] 09:34:00 Test Item Value Reference Range Interpretation Comments Glucose Lvl (test code = Glucose Lvl) 88 70-99 [facility]2022-06-19 09:34:00 Test Item Value Reference Range Interpretation Comments BUN (test code = BUN) 7 7-22 [facility]2022-06-19 09:34:00 Test Item Value Reference Range Interpretation Comments Creatinine Lvl (test code = Creatinine 0.53 0.50-1.40 Lvl) [facility]2022-06-19 09:34:00 Test Item Value Reference Range Interpretation Comments Sodium Lvl (test code = Sodium Lvl) 131 135-145 [facility]2022-06-19 09:34:00 Test Item Value Reference Range Interpretation Comments Potassium Lvl (test code = Potassium 4.4 3.5-5.1 Lvl) [facility]2022-06-19 09:34:00 Test Item Value Reference Range Interpretation Comments Chloride Lvl (test code = Chloride Lvl) 99 95-109 [facility]2022-06-19 09:34:00 Test Item Value Reference Range Interpretation Comments CO2 (test code = CO2) 25 24-32 [place] 261022-06-19 09:34:00 Test Item Value Reference Range Interpretation Comments Calcium Lvl (test code = Calcium Lvl) 9.2 8.5-10.5 [place] 261022-06-19 09:34:00 Test Item Value Reference Range Interpretation Comments AGAP (test code = AGAP) 11.4 10.0-20.0 [place] [address]-06-19 09:34:00 Test Item Value Reference Range Interpretation Comments eGFR (test code = eGFR) 150 [place] 261022-06-19 09:34:00 Test Item Value Reference Range Interpretation Comments LDH (test code = LDH) 683 98-192 [place] 261022-06-19 09:34:00 Test Item Value Reference Range Interpretation Comments Bili Total (test code = Bili Total) 2.0 0.2-1.3 [place] [address]-06-19 09:34:00 Test Item Value Reference Range Interpretation Comments Bili Direct (test code 0.7 See_Comment [Aut omated message] The = Bili Direct) system which generated this result tra nsmitted reference range : <=0.3. The reference r duy was not used to int erpret this result as erin l/abnormal. [place] 261022-06-19 09:34:00 Test Item Value Reference Range Interpretation Comments Bili Indirect (test 1.3 See_Comment [Automa aisha message] The code = Bili Indirect) system which generated this result tra nsmitted reference range : <=1.0. The reference r duy was not used to int erpret this result as normal/abnormal . [place] 234572-06-19 09:34:00 Test Item Value Reference Range Interpretation Comments Retic Perf (test code = Yes (01/17/22 4:34 AM) Retic Perf) [place] 234572-06-19 09:34:00 Test Item Value Reference Range Interpretation Comments Retic Auto (test code = Retic Auto) 10.4 0.5-1.5 [place] 234572-06-19 09:34:00 Test Item Value Reference Range Interpretation Comments WBC (test code = WBC) 6.9 3.7-10.4 [place] 234572-06-19 09:34:00 Test Item Value Reference Range Interpretation Comments RBC (test code = RBC) 2.32 4.70-6.10 [facility] HospitalMwqlyngQHNHOCDNWW9489-28-18 09:34:00 Test Item Value Reference Range Interpretation Comments Hgb (test code = Hgb) 7.5 14.0-18.0 [place] 234572-06-19 09:34:00 Test Item Value Reference Range Interpretation Comments Hct (test code = Hct) 21.8 42.0-54.0 [facility] HospitalGyftahfUKTWFHNPYW6106-80-37 09:34:00 Test Item Value Reference Range Interpretation Comments MCV (test code = MCV) 94.2 80.0-94.0 [place] 234572-06-19 09:34:00 Test Item Value Reference Range Interpretation Comments MCH (test code = MCH) 32.2 pg 27.0-31.0 [facility] HospitalLprzozzSUVTYJOGVO1019-71-13 09:34:00 Test Item Value Reference Range Interpretation Comments MCHC (test code = MCHC) 34.2 32.0-36.0 [place] 234572-06-19 09:34:00 Test Item Value Reference Range Interpretation Comments RDW (test code = RDW) 22.6 11.5-14.5 [place] 234572-06-19 09:34:00 Test Item Value Reference Range Interpretation Comments Platelet (test code = Platelet) 422 133-450 [facility] HospitalCymtmcrZZEDQLFRBS3208-91-90 09:34:00 Test Item Value Reference Range Interpretation Comments MPV (test code = MPV) 7.7 7.4-10.4 [place] 234572-06-19 09:34:00 Test Item Value Reference Range Interpretation Comments Segs (test code = Segs) 58.0 45.0-75.0 [place] 234572-06-19 09:34:00 Test Item Value Reference Range Interpretation Comments Lymphocytes (test code = Lymphocytes) 23.0 20.0-40.0 [place] [address]-06-19 09:34:00 Test Item Value Reference Range Interpretation Comments Monocytes (test code = Monocytes) 16.0 2.0-12.0 [place] 234572-06-19 09:34:00 Test Item Value Reference Range Interpretation Comments Eosinophils (test code = 3.0 See_Comment [A utomated message] The Eosinophils) system which ge nerated this result tra nsmitted reference range : <=4.0. The reference r duy was not used to int erpret this result as normal/abnormal . [place] 234572-06-19 09:34:00 Test Item Value Reference Range Interpretation Comments Neutrophils # (test code = Neutrophils 4.0 1.5-8.1 #) [facility] HospitalCvjqgafUIMKFYLQSS6596-83-80 09:34:00 Test Item Value Reference Range Interpretation Comments Lymphocytes # (test code = Lymphocytes 1.6 1.0-5.5 #) [place] [address]-06-19 09:34:00 Test Item Value Reference Range Interpretation Comments Monocytes # (test code 1.1 See_Comment [Aut omated message] The = Monocytes #) system which generated this result tra nsmitted reference range : <=0.8. The reference r duy was not used to int erpret this result as normal/abnormal . [place] 234572-06-19 09:34:00 Test Item Value Reference Range Interpretation Comments Eosinophils # (test code 0.2 See_Comment [A utomated message] The = Eosinophils #) system whic h generated this result tra nsmitted reference range : <=0.5. The reference r duy was not used to int erpret this result as normal/abnormal . [facility] HospitalQvbjkzyDDHNPGQSQZ3867-87-52 09:34:00 Test Item Value Reference Range Interpretation Comments NRBC (test code = NRBC) 46 [place] 234572-06-19 09:34:00 Test Item Value Reference Range Interpretation Comments Tot Cell Ct (test code = Tot Cell Ct) 100 1 [place] 234572-06-19 09:34:00 Test Item Value Reference Range Interpretation Comments Anisocyte (test code = 2+ *ABN*(01/17/22 Anisocyte) 4:34 AM) [place] 234572-06-19 09:34:00 Test Item Value Reference Range Interpretation Comments Macrocyte (test code = 1+ *ABN*(01/17/22 Macrocyte) 4:34 AM) [place] [address]-06-19 09:34:00 Test Item Value Reference Range Interpretation Comments Microcyte (test code = 1+ *ABN*(01/17/22 Microcyte) 4:34 AM) [place] 234572-06-19 09:34:00 Test Item Value Reference Range Interpretation Comments Hypochrom (test code = 1+ (01/17/22 4:34 AM) Hypochrom) [place] 234572-06-19 09:34:00 Test Item Value Reference Range Interpretation Comments Polychrom (test code = Moderate *ABN*(01/17/22 Polychrom) 4:34 AM) [place] 234572-06-19 09:34:00 Test Item Value Reference Range Interpretation Comments Target Cell (test code Marked *ABN*(01/17/22 = Target Cell) 4:34 AM) [place] 234572-06-19 09:34:00 Test Item Value Reference Range Interpretation Comments Sickle Cell (test code Slight *ABN*(01/17/22 = Sickle Cell) 4:34 AM) [place] 234572-06-19 09:34:00 Test Item Value Reference Range Interpretation Comments Large Plt (test code Moderate *ABN*(01/17/22 = Large Plt) 4:34 AM) [facility]2022-06-19 09:34:00 Test Item Value Reference Range Interpretation Comments Glucose Lvl (test code = Glucose Lvl) 88 70-99 [place] 261022-06-19 09:34:00 Test Item Value Reference Range Interpretation Comments BUN (test code = BUN) 7 7-22 [place] 261022-06-19 09:34:00 Test Item Value Reference Range Interpretation Comments Creatinine Lvl (test code = Creatinine 0.53 0.50-1.40 Lvl) [place] 261022-06-19 09:34:00 Test Item Value Reference Range Interpretation Comments Sodium Lvl (test code = Sodium Lvl) 131 135-145 [place] 261022-06-19 09:34:00 Test Item Value Reference Range Interpretation Comments Potassium Lvl (test code = Potassium 4.4 3.5-5.1 Lvl) [place] 261022-06-19 09:34:00 Test Item Value Reference Range Interpretation Comments Chloride Lvl (test code = Chloride Lvl) 99 95-109 [place] 261022-06-19 09:34:00 Test Item Value Reference Range Interpretation Comments CO2 (test code = CO2) 25 24-32 [place] 261022-06-19 09:34:00 Test Item Value Reference Range Interpretation Comments Calcium Lvl (test code = Calcium Lvl) 9.2 8.5-10.5 [place] 261022-06-19 09:34:00 Test Item Value Reference Range Interpretation Comments AGAP (test code = AGAP) 11.4 10.0-20.0 [place] 261022-06-19 09:34:00 Test Item Value Reference Range Interpretation Comments eGFR (test code = eGFR) 150 [place] 261022-06-19 09:34:00 Test Item Value Reference Range Interpretation Comments LDH (test code = LDH) 683 98-192 [place] 261022-06-19 09:34:00 Test Item Value Reference Range Interpretation Comments Bili Total (test code = Bili Total) 2.0 0.2-1.3 [place] 261022-06-19 09:34:00 Test Item Value Reference Range Interpretation Comments Bili Direct (test code 0.7 See_Comment [Aut omated message] The = Bili Direct) system which generated this result tra nsmitted reference range : <=0.3. The reference r duy was not used to int erpret this result as erin l/abnormal. [place] 261022-06-19 09:34:00 Test Item Value Reference Range Interpretation Comments Bili Indirect (test 1.3 See_Comment [Automa aisha message] The code = Bili Indirect) system which generated this result tra nsmitted reference range : <=1.0. The reference r duy was not used to int erpret this result as normal/abnormal . [place] 234572-06-19 09:34:00 Test Item Value Reference Range Interpretation Comments Retic Perf (test code = Yes (01/17/22 4:34 AM) Retic Perf) [place] 234572-06-19 09:34:00 Test Item Value Reference Range Interpretation Comments Retic Auto (test code = Retic Auto) 10.4 0.5-1.5 [place] 234572-06-19 09:34:00 Test Item Value Reference Range Interpretation Comments WBC (test code = WBC) 6.9 3.7-10.4 [place] 234572-06-19 09:34:00 Test Item Value Reference Range Interpretation Comments RBC (test code = RBC) 2.32 4.70-6.10 [place] 234572-06-19 09:34:00 Test Item Value Reference Range Interpretation Comments Hgb (test code = Hgb) 7.5 14.0-18.0 [place] 234572-06-19 09:34:00 Test Item Value Reference Range Interpretation Comments Hct (test code = Hct) 21.8 42.0-54.0 [place] 234572-06-19 09:34:00 Test Item Value Reference Range Interpretation Comments MCV (test code = MCV) 94.2 80.0-94.0 [place] 234572-06-19 09:34:00 Test Item Value Reference Range Interpretation Comments MCH (test code = MCH) 32.2 pg 27.0-31.0 [facility] HospitalGupuohpKTQJXUTVHD5751-70-26 09:34:00 Test Item Value Reference Range Interpretation Comments MCHC (test code = MCHC) 34.2 32.0-36.0 [place] 234572-06-19 09:34:00 Test Item Value Reference Range Interpretation Comments RDW (test code = RDW) 22.6 11.5-14.5 [facility] HospitalTtogpddFGWZYIWSSJ3244-85-31 09:34:00 Test Item Value Reference Range Interpretation Comments Platelet (test code = Platelet) 422 133-450 [facility] HospitalCsouvykSPSPUZXGXN3413-78-98 09:34:00 Test Item Value Reference Range Interpretation Comments MPV (test code = MPV) 7.7 7.4-10.4 [place] 234572-06-19 09:34:00 Test Item Value Reference Range Interpretation Comments Segs (test code = Segs) 58.0 45.0-75.0 [place] 234572-06-19 09:34:00 Test Item Value Reference Range Interpretation Comments Lymphocytes (test code = Lymphocytes) 23.0 20.0-40.0 [place] 234572-06-19 09:34:00 Test Item Value Reference Range Interpretation Comments Monocytes (test code = Monocytes) 16.0 2.0-12.0 [place] 234572-06-19 09:34:00 Test Item Value Reference Range Interpretation Comments Eosinophils (test code = 3.0 See_Comment [A utomated message] The Eosinophils) system which ge nerated this result tra nsmitted reference range : <=4.0. The reference r duy was not used to int erpret this result as normal/abnormal . [facility] HospitalJsjqhifSUPLWDOVLC9371-51-33 09:34:00 Test Item Value Reference Range Interpretation Comments Neutrophils # (test code = Neutrophils 4.0 1.5-8.1 #) [facility] HospitalZhnkkuuLCONHVCSCM3626-24-03 09:34:00 Test Item Value Reference Range Interpretation Comments Lymphocytes # (test code = Lymphocytes 1.6 1.0-5.5 #) [facility] HospitalZfixztmFSXCRUIUHN5992-90-68 09:34:00 Test Item Value Reference Range Interpretation Comments Monocytes # (test code 1.1 See_Comment [Aut omated message] The = Monocytes #) system which generated this result tra nsmitted reference range : <=0.8. The reference r duy was not used to int erpret this result as normal/abnormal . [facility] HospitalTvwmxkdOYKCDJDNMG8118-54-21 09:34:00 Test Item Value Reference Range Interpretation Comments Eosinophils # (test code 0.2 See_Comment [A utomated message] The = Eosinophils #) system whic h generated this result tra nsmitted reference range : <=0.5. The reference r duy was not used to int erpret this result as normal/abnormal . [facility] HospitalPxrxhglZIYWQHPSIH9141-63-03 09:34:00 Test Item Value Reference Range Interpretation Comments NRBC (test code = NRBC) 46 [facility] HospitalUxphbveWTUNDQDAEL8713-31-08 09:34:00 Test Item Value Reference Range Interpretation Comments Tot Cell Ct (test code = Tot Cell Ct) 100 1 [facility] HospitalMpfpjuqJPMLXPDUFP2683-51-24 09:34:00 Test Item Value Reference Range Interpretation Comments Anisocyte (test code = 2+ *ABN*(01/17/22 Anisocyte) 4:34 AM) [facility] HospitalDugzkpdYDXPRDNVHH0512-66-25 09:34:00 Test Item Value Reference Range Interpretation Comments Macrocyte (test code = 1+ *ABN*(01/17/22 Macrocyte) 4:34 AM) [facility] HospitalEdqytllRUFOVWFCEH8315-05-99 09:34:00 Test Item Value Reference Range Interpretation Comments Microcyte (test code = 1+ *ABN*(01/17/22 Microcyte) 4:34 AM) [place] 234572-06-19 09:34:00 Test Item Value Reference Range Interpretation Comments Hypochrom (test code = 1+ (01/17/22 4:34 AM) Hypochrom) [place] 234572-06-19 09:34:00 Test Item Value Reference Range Interpretation Comments Polychrom (test code = Moderate *ABN*(01/17/22 Polychrom) 4:34 AM) [place] 234572-06-19 09:34:00 Test Item Value Reference Range Interpretation Comments Target Cell (test code Marked *ABN*(01/17/22 = Target Cell) 4:34 AM) [place] 234572-06-19 09:34:00 Test Item Value Reference Range Interpretation Comments Sickle Cell (test code Slight *ABN*(01/17/22 = Sickle Cell) 4:34 AM) [facility] HospitalPtgjdcjRHOAWGSSSU2141-97-62 09:34:00 Test Item Value Reference Range Interpretation Comments Large Plt (test code Moderate *ABN*(01/17/22 = Large Plt) 4:34 AM) [facility]2022-06-19 09:34:00 Test Item Value Reference Range Interpretation Comments Glucose Lvl (test code = Glucose Lvl) 88 70-99 [facility]2022-06-19 09:34:00 Test Item Value Reference Range Interpretation Comments BUN (test code = BUN) 7 7-22 [facility]2022-06-19 09:34:00 Test Item Value Reference Range Interpretation Comments Creatinine Lvl (test code = Creatinine 0.53 0.50-1.40 Lvl) [facility]2022-06-19 09:34:00 Test Item Value Reference Range Interpretation Comments Sodium Lvl (test code = Sodium Lvl) 131 135-145 [place] 261022-06-19 09:34:00 Test Item Value Reference Range Interpretation Comments Potassium Lvl (test code = Potassium 4.4 3.5-5.1 Lvl) [facility]2022-06-19 09:34:00 Test Item Value Reference Range Interpretation Comments Chloride Lvl (test code = Chloride Lvl) 99 95-109 [place] 261022-06-19 09:34:00 Test Item Value Reference Range Interpretation Comments CO2 (test code = CO2) 25 24-32 [place] 261022-06-19 09:34:00 Test Item Value Reference Range Interpretation Comments Calcium Lvl (test code = Calcium Lvl) 9.2 8.5-10.5 [place] 261022-06-19 09:34:00 Test Item Value Reference Range Interpretation Comments AGAP (test code = AGAP) 11.4 10.0-20.0 [place] [address]-06-19 09:34:00 Test Item Value Reference Range Interpretation Comments eGFR (test code = eGFR) 150 [place] 261022-06-19 09:34:00 Test Item Value Reference Range Interpretation Comments LDH (test code = LDH) 683 98-192 [place] 261022-06-19 09:34:00 Test Item Value Reference Range Interpretation Comments Bili Total (test code = Bili Total) 2.0 0.2-1.3 [place] 261022-06-19 09:34:00 Test Item Value Reference Range Interpretation Comments Bili Direct (test code 0.7 See_Comment [Aut omated message] The = Bili Direct) system which generated this result tra nsmitted reference range : <=0.3. The reference r duy was not used to int erpret this result as erin l/abnormal. [place] 261022-06-19 09:34:00 Test Item Value Reference Range Interpretation Comments Bili Indirect (test 1.3 See_Comment [Automa aisha message] The code = Bili Indirect) system which generated this result tra nsmitted reference range : <=1.0. The reference r duy was not used to int erpret this result as normal/abnormal . [place] 234572-06-19 09:34:00 Test Item Value Reference Range Interpretation Comments Retic Perf (test code = Yes (01/17/22 4:34 AM) Retic Perf) [place] 234572-06-19 09:34:00 Test Item Value Reference Range Interpretation Comments Retic Auto (test code = Retic Auto) 10.4 0.5-1.5 [place] 234572-06-19 09:34:00 Test Item Value Reference Range Interpretation Comments WBC (test code = WBC) 6.9 3.7-10.4 [facility]KavkmykNSJTOYJXBD5068-01-45 09:34:00 Test Item Value Reference Range Interpretation Comments RBC (test code = RBC) 2.32 4.70-6.10 [facility] HospitalAopgvmeWRWRHYWHFP6394-57-02 09:34:00 Test Item Value Reference Range Interpretation Comments Hgb (test code = Hgb) 7.5 14.0-18.0 [facility] HospitalEowgzbhWNQXHBGBBE9359-23-31 09:34:00 Test Item Value Reference Range Interpretation Comments Hct (test code = Hct) 21.8 42.0-54.0 [facility] HospitalWxbepkdHQOVEYJMXP3951-93-27 09:34:00 Test Item Value Reference Range Interpretation Comments MCV (test code = MCV) 94.2 80.0-94.0 [facility] HospitalKwchckwDIRNIQARNR7865-99-41 09:34:00 Test Item Value Reference Range Interpretation Comments MCH (test code = MCH) 32.2 pg 27.0-31.0 [facility] HospitalZplkyjfJODSGRJLAW7395-56-50 09:34:00 Test Item Value Reference Range Interpretation Comments MCHC (test code = MCHC) 34.2 32.0-36.0 [facility] HospitalZxuvpdiMXCBDRTCFX1217-71-28 09:34:00 Test Item Value Reference Range Interpretation Comments RDW (test code = RDW) 22.6 11.5-14.5 [facility] HospitalVtvxwxfQJBIJHUQPV7937-94-33 09:34:00 Test Item Value Reference Range Interpretation Comments Platelet (test code = Platelet) 422 133-450 [facility] HospitalHbjaczuMDGCHFNPGL8970-36-76 09:34:00 Test Item Value Reference Range Interpretation Comments MPV (test code = MPV) 7.7 7.4-10.4 [facility] HospitalEoxpqvtURZNHTBHMO6674-15-73 09:34:00 Test Item Value Reference Range Interpretation Comments Segs (test code = Segs) 58.0 45.0-75.0 [facility] HospitalEldjsdvZOVUFFEPYE6030-19-11 09:34:00 Test Item Value Reference Range Interpretation Comments Lymphocytes (test code = Lymphocytes) 23.0 20.0-40.0 [facility] HospitalNyajvexLIJOAZSNER6231-40-25 09:34:00 Test Item Value Reference Range Interpretation Comments Monocytes (test code = Monocytes) 16.0 2.0-12.0 [facility] HospitalWqzvxhhKNGOLFNUMF3399-11-34 09:34:00 Test Item Value Reference Range Interpretation Comments Eosinophils (test code = 3.0 See_Comment [A utomated message] The Eosinophils) system which ge nerated this result tra nsmitted reference range : <=4.0. The reference r duy was not used to int erpret this result as normal/abnormal . [facility] HospitalXoadlvhYKWGAIGATL5931-19-46 09:34:00 Test Item Value Reference Range Interpretation Comments Neutrophils # (test code = Neutrophils 4.0 1.5-8.1 #) [facility] HospitalEagaagkSSOIKYPKUY5403-05-69 09:34:00 Test Item Value Reference Range Interpretation Comments Lymphocytes # (test code = Lymphocytes 1.6 1.0-5.5 #) [facility] HospitalXbkrcihTRNADXVYBN4318-35-00 09:34:00 Test Item Value Reference Range Interpretation Comments Monocytes # (test code 1.1 See_Comment [Aut omated message] The = Monocytes #) system which generated this result tra nsmitted reference range : <=0.8. The reference r duy was not used to int erpret this result as normal/abnormal . [facility] HospitalNewoxlaFCGGMOYZLR5486-46-29 09:34:00 Test Item Value Reference Range Interpretation Comments Eosinophils # (test code 0.2 See_Comment [A utomated message] The = Eosinophils #) system whic h generated this result tra nsmitted reference range : <=0.5. The reference r duy was not used to int erpret this result as normal/abnormal . [facility] HospitalYakvwbpKCTRXMMVRY4771-16-08 09:34:00 Test Item Value Reference Range Interpretation Comments NRBC (test code = NRBC) 46 [facility] HospitalErgepwiVCTBEIWXSH6545-59-19 09:34:00 Test Item Value Reference Range Interpretation Comments Tot Cell Ct (test code = Tot Cell Ct) 100 1 [facility] HospitalGexstbeAKAVAQABDQ5389-17-67 09:34:00 Test Item Value Reference Range Interpretation Comments Anisocyte (test code = 2+ *ABN*(01/17/22 Anisocyte) 4:34 AM) [facility] HospitalZqmlzodSIMMHRAEDE7598-82-23 09:34:00 Test Item Value Reference Range Interpretation Comments Macrocyte (test code = 1+ *ABN*(01/17/22 Macrocyte) 4:34 AM) [place] 234572-06-19 09:34:00 Test Item Value Reference Range Interpretation Comments Microcyte (test code = 1+ *ABN*(01/17/22 Microcyte) 4:34 AM) [facility] HospitalCfhrwxfUAFKISPFNL6491-92-46 09:34:00 Test Item Value Reference Range Interpretation Comments Hypochrom (test code = 1+ (01/17/22 4:34 AM) Hypochrom) [place] 234572-06-19 09:34:00 Test Item Value Reference Range Interpretation Comments Polychrom (test code = Moderate *ABN*(01/17/22 Polychrom) 4:34 AM) [place] 234572-06-19 09:34:00 Test Item Value Reference Range Interpretation Comments Target Cell (test code Marked *ABN*(01/17/22 = Target Cell) 4:34 AM) [facility] HospitalIetrbpiGULYOHFMJM2457-20-63 09:34:00 Test Item Value Reference Range Interpretation Comments Sickle Cell (test code Slight *ABN*(01/17/22 = Sickle Cell) 4:34 AM) [facility] HospitalIinxoauAMEGCFCOIM2861-97-52 09:34:00 Test Item Value Reference Range Interpretation Comments Large Plt (test code Moderate *ABN*(01/17/22 = Large Plt) 4:34 AM) [facility]2022-06-19 09:34:00 Test Item Value Reference Range Interpretation Comments Glucose Lvl (test code = Glucose Lvl) 88 70-99 [facility]2022-06-19 09:34:00 Test Item Value Reference Range Interpretation Comments BUN (test code = BUN) 7 7-22 [facility]2022-06-19 09:34:00 Test Item Value Reference Range Interpretation Comments Creatinine Lvl (test code = Creatinine 0.53 0.50-1.40 Lvl) [facility]2022-06-19 09:34:00 Test Item Value Reference Range Interpretation Comments Sodium Lvl (test code = Sodium Lvl) 131 135-145 [place] 261022-06-19 09:34:00 Test Item Value Reference Range Interpretation Comments Potassium Lvl (test code = Potassium 4.4 3.5-5.1 Lvl) [facility]2022-06-19 09:34:00 Test Item Value Reference Range Interpretation Comments Chloride Lvl (test code = Chloride Lvl) 99 95-109 [place] 261022-06-19 09:34:00 Test Item Value Reference Range Interpretation Comments CO2 (test code = CO2) 25 24-32 [place] 261022-06-19 09:34:00 Test Item Value Reference Range Interpretation Comments Calcium Lvl (test code = Calcium Lvl) 9.2 8.5-10.5 [place] 261022-06-19 09:34:00 Test Item Value Reference Range Interpretation Comments AGAP (test code = AGAP) 11.4 10.0-20.0 [place] 261022-06-19 09:34:00 Test Item Value Reference Range Interpretation Comments eGFR (test code = eGFR) 150 [place] 261022-06-19 09:34:00 Test Item Value Reference Range Interpretation Comments LDH (test code = LDH) 683 98-192 [place] 261022-06-19 09:34:00 Test Item Value Reference Range Interpretation Comments Bili Total (test code = Bili Total) 2.0 0.2-1.3 [place] 261022-06-19 09:34:00 Test Item Value Reference Range Interpretation Comments Bili Direct (test code 0.7 See_Comment [Aut omated message] The = Bili Direct) system which generated this result tra nsmitted reference range : <=0.3. The reference r duy was not used to int erpret this result as erin l/abnormal. [place] 261022-06-19 09:34:00 Test Item Value Reference Range Interpretation Comments Bili Indirect (test 1.3 See_Comment [Automa aisha message] The code = Bili Indirect) system which generated this result tra nsmitted reference range : <=1.0. The reference r duy was not used to int erpret this result as normal/abnormal . [place] 234572-06-19 09:34:00 Test Item Value Reference Range Interpretation Comments Retic Perf (test code = Yes (01/17/22 4:34 AM) Retic Perf) [place] 234572-06-19 09:34:00 Test Item Value Reference Range Interpretation Comments Retic Auto (test code = Retic Auto) 10.4 0.5-1.5 [facility] HospitalOwzwdpcMEOSGYPRXF8483-59-86 09:34:00 Test Item Value Reference Range Interpretation Comments WBC (test code = WBC) 6.9 3.7-10.4 [facility] HospitalCedacthGHCERYHEFZ8793-35-98 09:34:00 Test Item Value Reference Range Interpretation Comments RBC (test code = RBC) 2.32 4.70-6.10 [facility] HospitalLmisjizRHYBPZQRCX4750-13-91 09:34:00 Test Item Value Reference Range Interpretation Comments Hgb (test code = Hgb) 7.5 14.0-18.0 [facility] HospitalYxvquipLRSXBZUSZV6233-78-65 09:34:00 Test Item Value Reference Range Interpretation Comments Hct (test code = Hct) 21.8 42.0-54.0 [facility] HospitalRuysobyCOGDOKDBYG9836-44-96 09:34:00 Test Item Value Reference Range Interpretation Comments MCV (test code = MCV) 94.2 80.0-94.0 [facility] HospitalZsrsshwZWKLWZBYLE8989-77-90 09:34:00 Test Item Value Reference Range Interpretation Comments MCH (test code = MCH) 32.2 pg 27.0-31.0 [facility] HospitalCbhfcvgOESHMNBEJM2502-05-98 09:34:00 Test Item Value Reference Range Interpretation Comments MCHC (test code = MCHC) 34.2 32.0-36.0 [facility] HospitalOrnekjgVYGUNJMXNX5945-66-11 09:34:00 Test Item Value Reference Range Interpretation Comments RDW (test code = RDW) 22.6 11.5-14.5 [facility] HospitalYpkhaoqOJQQBDEDVS0937-84-96 09:34:00 Test Item Value Reference Range Interpretation Comments Platelet (test code = Platelet) 422 133-450 [facility] HospitalPffwqswNPZENXYRXJ4058-94-00 09:34:00 Test Item Value Reference Range Interpretation Comments MPV (test code = MPV) 7.7 7.4-10.4 [facility] HospitalMteeacrKGNLZZHIQC5893-92-30 09:34:00 Test Item Value Reference Range Interpretation Comments Segs (test code = Segs) 58.0 45.0-75.0 [facility] HospitalWmfwiexIWTZQGICTD9278-32-94 09:34:00 Test Item Value Reference Range Interpretation Comments Lymphocytes (test code = Lymphocytes) 23.0 20.0-40.0 [facility] HospitalPmqiglwLPCEJVRIRI4180-79-65 09:34:00 Test Item Value Reference Range Interpretation Comments Monocytes (test code = Monocytes) 16.0 2.0-12.0 [facility] HospitalTojxbwmMYAFTOCNXT8018-43-86 09:34:00 Test Item Value Reference Range Interpretation Comments Eosinophils (test code = 3.0 See_Comment [A utomated message] The Eosinophils) system which ge nerated this result tra nsmitted reference range : <=4.0. The reference r duy was not used to int erpret this result as normal/abnormal . [facility] HospitalKjqrsexKMGHHWMFDH5473-59-69 09:34:00 Test Item Value Reference Range Interpretation Comments Neutrophils # (test code = Neutrophils 4.0 1.5-8.1 #) [facility] HospitalNynjyodBIWOBXGGBK5291-08-49 09:34:00 Test Item Value Reference Range Interpretation Comments Lymphocytes # (test code = Lymphocytes 1.6 1.0-5.5 #) [facility] HospitalFyiqcibKECJBFECUA8340-22-62 09:34:00 Test Item Value Reference Range Interpretation Comments Monocytes # (test code 1.1 See_Comment [Aut omated message] The = Monocytes #) system which generated this result tra nsmitted reference range : <=0.8. The reference r duy was not used to int erpret this result as normal/abnormal . [facility] HospitalCxeywvtBMHTIGQXKA4864-88-11 09:34:00 Test Item Value Reference Range Interpretation Comments Eosinophils # (test code 0.2 See_Comment [A utomated message] The = Eosinophils #) system whic h generated this result tra nsmitted reference range : <=0.5. The reference r duy was not used to int erpret this result as normal/abnormal . [facility] HospitalThqwrmtKVYVKHZTYG6735-00-12 09:34:00 Test Item Value Reference Range Interpretation Comments NRBC (test code = NRBC) 46 [facility] HospitalLxbjrpfIOCSMKRNIV7928-62-62 09:34:00 Test Item Value Reference Range Interpretation Comments Tot Cell Ct (test code = Tot Cell Ct) 100 1 [facility] HospitalJprwxrsFGCPQWQTIN1783-38-85 09:34:00 Test Item Value Reference Range Interpretation Comments Anisocyte (test code = 2+ *ABN*(01/17/22 Anisocyte) 4:34 AM) [facility] HospitalFwgltouRXWWYRARLU9192-16-44 09:34:00 Test Item Value Reference Range Interpretation Comments Macrocyte (test code = 1+ *ABN*(01/17/22 Macrocyte) 4:34 AM) [facility] HospitalKxuwkkmEBZXTBXYNF0018-99-66 09:34:00 Test Item Value Reference Range Interpretation Comments Microcyte (test code = 1+ *ABN*(01/17/22 Microcyte) 4:34 AM) [facility] HospitalKeuwmueUKIHVLCZFP3792-90-01 09:34:00 Test Item Value Reference Range Interpretation Comments Hypochrom (test code = 1+ (01/17/22 4:34 AM) Hypochrom) [place] 234572-06-19 09:34:00 Test Item Value Reference Range Interpretation Comments Polychrom (test code = Moderate *ABN*(01/17/22 Polychrom) 4:34 AM) [place] 234572-06-19 09:34:00 Test Item Value Reference Range Interpretation Comments Target Cell (test code Marked *ABN*(01/17/22 = Target Cell) 4:34 AM) [facility] HospitalPsuywkuVGQEDMSXFJ9778-08-35 09:34:00 Test Item Value Reference Range Interpretation Comments Sickle Cell (test code Slight *ABN*(01/17/22 = Sickle Cell) 4:34 AM) [place] 234572-06-19 09:34:00 Test Item Value Reference Range Interpretation Comments Large Plt (test code Moderate *ABN*(01/17/22 = Large Plt) 4:34 AM) [facility]2022-06-18 09:47:00 Test Item Value Reference Range Interpretation Comments Potassium Lvl (test code = Potassium 4.0 3.5-5.1 Lvl) [facility]2022-06-18 09:47:00 Test Item Value Reference Range Interpretation Comments Chloride Lvl (test code = Chloride Lvl) 97 95-109 [facility]2022-06-18 09:47:00 Test Item Value Reference Range Interpretation Comments CO2 (test code = CO2) 27 24-32 [place] 261022-06-18 09:47:00 Test Item Value Reference Range Interpretation Comments Calcium Lvl (test code = Calcium Lvl) 9.2 8.5-10.5 [place] 261022-06-18 09:47:00 Test Item Value Reference Range Interpretation Comments AGAP (test code = AGAP) 12.0 10.0-20.0 [facility]2022-06-18 09:47:00 Test Item Value Reference Range Interpretation Comments eGFR (test code = eGFR) 158 [facility] HospitalKgqzywrLYROTRHGMO0960-00-86 09:47:00 Test Item Value Reference Range Interpretation Comments Retic Perf (test code = Yes (01/16/22 4:47 AM) Retic Perf) [place] 234572-06-18 09:47:00 Test Item Value Reference Range Interpretation Comments Retic Auto (test code = Retic Auto) 8.6 0.5-1.5 [place] 234572-06-18 09:47:00 Test Item Value Reference Range Interpretation Comments Neutrophils # (test code = Neutrophils 5.0 1.5-8.1 #) [facility] HospitalDalcqhwFWUNSAOAWF7795-03-72 09:47:00 Test Item Value Reference Range Interpretation Comments Lymphocytes # (test code = Lymphocytes 2.1 1.0-5.5 #) [facility] HospitalXdjkqceGCEXITHJGE7016-45-00 09:47:00 Test Item Value Reference Range Interpretation Comments Monocytes # (test code 0.6 See_Comment [Aut omated message] The = Monocytes #) system which generated this result tra nsmitted reference range : <=0.8. The reference r duy was not used to int erpret this result as normal/abnormal . [facility] HospitalVsewqcmTBELZUSWCF4368-11-37 09:47:00 Test Item Value Reference Range Interpretation Comments Eosinophils # (test code 0.2 See_Comment [A utomated message] The = Eosinophils #) system whic h generated this result tra nsmitted reference range : <=0.5. The reference r duy was not used to int erpret this result as normal/abnormal . [facility] HospitalQulazpyPLGTGNUWPZ7321-22-29 09:47:00 Test Item Value Reference Range Interpretation Comments Segs (test code = Segs) 63.0 45.0-75.0 [place] 234572-06-18 09:47:00 Test Item Value Reference Range Interpretation Comments Bands (test code = 0.0 See_Comment [Automat ed message] The Bands) system which ge nerated this result transmit aisha reference range : <=11.0. The reference r duy was not used to interpr et this result as erin l/abnormal. [facility] HospitalFsblykhNKEDWGQBSE8032-81-99 09:47:00 Test Item Value Reference Range Interpretation Comments Lymphocytes (test code = Lymphocytes) 27.0 20.0-40.0 [facility] HospitalVxiyungLMVIPMJWHQ5350-60-65 09:47:00 Test Item Value Reference Range Interpretation Comments Monocytes (test code = Monocytes) 7.0 2.0-12.0 [place] 234572-06-18 09:47:00 Test Item Value Reference Range Interpretation Comments Eosinophils (test code = 2.0 See_Comment [A utomated message] The Eosinophils) system which ge nerated this result tra nsmitted reference range : <=4.0. The reference r duy was not used to int erpret this result as normal/abnormal . [facility] HospitalWcjiakxYHCKPTEQYD3630-46-04 09:47:00 Test Item Value Reference Range Interpretation Comments Metamyelocytes (test code 1.0 See_Comment [ Automated message] = Metamyelocytes) The system which generated this result transmitted ref erence range: <=1.0. T he reference range was not used to int erpret this result as normal/abnormal . [facility] HospitalWfkvnlyDUOUSWEYKJ1318-25-81 09:47:00 Test Item Value Reference Range Interpretation Comments Atypical Lymphs (test code = Atypical 0.0 Lymphs) [facility] HospitalJkdtcxaTLFOTXKYYG0042-53-05 09:47:00 Test Item Value Reference Range Interpretation Comments NRBC (test code = NRBC) 31 [facility] HospitalLehzummYKBYUHZDQP8457-84-35 09:47:00 Test Item Value Reference Range Interpretation Comments RBC Morph (test code = See Note (01/16/22 4:47 RBC Morph) AM) [facility] HospitalWcavoxkKSANICMSAE8239-12-86 09:47:00 Test Item Value Reference Range Interpretation Comments Plt Morph (test code = See Note (01/16/22 4:47 Plt Morph) AM) [place] 234572-06-18 09:47:00 Test Item Value Reference Range Interpretation Comments Tot Cell Ct (test code = Tot Cell Ct) 100 1 [place] 234572-06-18 09:47:00 Test Item Value Reference Range Interpretation Comments Anisocyte (test code = 2+ *ABN*(01/16/22 Anisocyte) 4:47 AM) [place] 234572-06-18 09:47:00 Test Item Value Reference Range Interpretation Comments Macrocyte (test code = 1+ *ABN*(01/16/22 Macrocyte) 4:47 AM) [place] 234572-06-18 09:47:00 Test Item Value Reference Range Interpretation Comments Polychrom (test code = Moderate *ABN*(01/16/22 Polychrom) 4:47 AM) [facility] HospitalTtajqdfOEIVIPBRSR0055-39-23 09:47:00 Test Item Value Reference Range Interpretation Comments Target Cell (test code Moderate *ABN*(01/16/22 = Target Cell) 4:47 AM) [place] 234572-06-18 09:47:00 Test Item Value Reference Range Interpretation Comments Elliptocyte (test code = Slight *ABN*(01/16/22 Elliptocyte) 4:47 AM) [place] 234572-06-18 09:47:00 Test Item Value Reference Range Interpretation Comments Sickle Cell (test code Slight *ABN*(01/16/22 = Sickle Cell) 4:47 AM) [facility] HospitalFhhdrvyRYMHPLVOVI6312-79-01 09:47:00 Test Item Value Reference Range Interpretation Comments Giant Plt (test code Moderate *ABN*(01/16/22 = Giant Plt) 4:47 AM) [facility] HospitalPlpusxfKNPRINXAYH6780-95-66 09:47:00 Test Item Value Reference Range Interpretation Comments WBC (test code = WBC) 7.9 3.7-10.4 [facility] HospitalXrabmtqBNJJZVRHNZ5081-88-94 09:47:00 Test Item Value Reference Range Interpretation Comments RBC (test code = RBC) 2.23 4.70-6.10 [place] 234572-06-18 09:47:00 Test Item Value Reference Range Interpretation Comments Hgb (test code = Hgb) 7.0 14.0-18.0 [place] [address]-06-18 09:47:00 Test Item Value Reference Range Interpretation Comments Hct (test code = Hct) 20.5 42.0-54.0 [place] [address]-06-18 09:47:00 Test Item Value Reference Range Interpretation Comments MCV (test code = MCV) 91.7 80.0-94.0 [place] 234572-06-18 09:47:00 Test Item Value Reference Range Interpretation Comments MCH (test code = MCH) 31.2 pg 27.0-31.0 [facility]CzkvavpXRBBNLNRDO7999-22-47 09:47:00 Test Item Value Reference Range Interpretation Comments MCHC (test code = MCHC) 34.0 32.0-36.0 [facility] HospitalVvhnkyqBHHTEFWVLP6210-61-49 09:47:00 Test Item Value Reference Range Interpretation Comments RDW (test code = RDW) 22.7 11.5-14.5 [facility] HospitalAhsiiyoHGCRSXZWJX6962-13-54 09:47:00 Test Item Value Reference Range Interpretation Comments Platelet (test code = Platelet) 332 133-450 [facility] HospitalTvkpyopEPPLBWEQEC0017-15-89 09:47:00 Test Item Value Reference Range Interpretation Comments MPV (test code = MPV) 7.7 7.4-10.4 [facility]2022-06-18 09:47:00 Test Item Value Reference Range Interpretation Comments Ferritin Lvl (test code = Ferritin Lvl) 1067 62-844 [facility]ZZDHFBE0412-90-56 09:47:00 Test Item Value Reference Range Interpretation Comments proBNP (test code = 8 See_Comment [Automa aisha message] The proBNP) system which ge nerated this result tra nsmitted reference range : <=125. The reference r duy was not used to int erpret this result as erin l/abnormal. [facility] FFKYW4369-78-44 09:47:00 Test Item Value Reference Range Interpretation Comments LDH (test code = LDH) [address] [facility]2022-06-18 09:47:00 Test Item Value Reference Range Interpretation Comments Bili Total (test code = Bili Total) 3.3 0.2-1.3 [facility]2022-06-18 09:47:00 Test Item Value Reference Range Interpretation Comments Bili Direct (test code 1.4 See_Comment [Aut omated message] The = Bili Direct) system which generated this result tra nsmitted reference range : <=0.3. The reference r duy was not used to int erpret this result as erin l/abnormal. [facility] [id number] 09:47:00 Test Item Value Reference Range Interpretation Comments Bili Indirect (test 1.9 See_Comment [Automa aisha message] The code = Bili Indirect) system which generated this result tra nsmitted reference range : <=1.0. The reference r duy was not used to int erpret this result as normal/abnormal . [place] 261022-06-18 09:47:00 Test Item Value Reference Range Interpretation Comments Glucose Lvl (test code = Glucose Lvl) 99 70-99 [place] 261022-06-18 09:47:00 Test Item Value Reference Range Interpretation Comments BUN (test code = BUN) 9 7-22 [place] [address]-06-18 09:47:00 Test Item Value Reference Range Interpretation Comments Creatinine Lvl (test code = Creatinine 0.47 0.50-1.40 Lvl) [place] 429[address]-06-18 09:47:00 Test Item Value Reference Range Interpretation Comments Sodium Lvl (test code = Sodium Lvl) 132 135-145 [place] 429[address]-06-18 09:47:00 Test Item Value Reference Range Interpretation Comments Potassium Lvl (test code = Potassium 4.0 3.5-5.1 Lvl) [place] 261022-06-18 09:47:00 Test Item Value Reference Range Interpretation Comments Chloride Lvl (test code = Chloride Lvl) 97 95-109 [place] 261022-06-18 09:47:00 Test Item Value Reference Range Interpretation Comments CO2 (test code = CO2) 27 24-32 [place] 261022-06-18 09:47:00 Test Item Value Reference Range Interpretation Comments Calcium Lvl (test code = Calcium Lvl) 9.2 8.5-10.5 [place] 261022-06-18 09:47:00 Test Item Value Reference Range Interpretation Comments AGAP (test code = AGAP) 12.0 10.0-20.0 [place] 261022-06-18 09:47:00 Test Item Value Reference Range Interpretation Comments eGFR (test code = eGFR) 158 [place] 234572-06-18 09:47:00 Test Item Value Reference Range Interpretation Comments Retic Perf (test code = Yes (01/16/22 4:47 AM) Retic Perf) [place] 234572-06-18 09:47:00 Test Item Value Reference Range Interpretation Comments Retic Auto (test code = Retic Auto) 8.6 0.5-1.5 [place] 234572-06-18 09:47:00 Test Item Value Reference Range Interpretation Comments Neutrophils # (test code = Neutrophils 5.0 1.5-8.1 #) [place] [address]-06-18 09:47:00 Test Item Value Reference Range Interpretation Comments Lymphocytes # (test code = Lymphocytes 2.1 1.0-5.5 #) [place] [address]-06-18 09:47:00 Test Item Value Reference Range Interpretation Comments Monocytes # (test code 0.6 See_Comment [Aut omated message] The = Monocytes #) system which generated this result tra nsmitted reference range : <=0.8. The reference r duy was not used to int erpret this result as normal/abnormal . [place] [address]-06-18 09:47:00 Test Item Value Reference Range Interpretation Comments Eosinophils # (test code 0.2 See_Comment [A utomated message] The = Eosinophils #) system whic h generated this result tra nsmitted reference range : <=0.5. The reference r duy was not used to int erpret this result as normal/abnormal . [place] 234572-06-18 09:47:00 Test Item Value Reference Range Interpretation Comments Segs (test code = Segs) 63.0 45.0-75.0 [place] [address]-06-18 09:47:00 Test Item Value Reference Range Interpretation Comments Bands (test code = 0.0 See_Comment [Automat ed message] The Bands) system which ge nerated this result transmit aisha reference range : <=11.0. The reference r duy was not used to interpr et this result as erin l/abnormal. [place] 234572-06-18 09:47:00 Test Item Value Reference Range Interpretation Comments Lymphocytes (test code = Lymphocytes) 27.0 20.0-40.0 [place] [address]-06-18 09:47:00 Test Item Value Reference Range Interpretation Comments Monocytes (test code = Monocytes) 7.0 2.0-12.0 [place] [address]-06-18 09:47:00 Test Item Value Reference Range Interpretation Comments Eosinophils (test code = 2.0 See_Comment [A utomated message] The Eosinophils) system which ge nerated this result tra nsmitted reference range : <=4.0. The reference r duy was not used to int erpret this result as normal/abnormal . [facility]lc[facility]OPT[facility]XTP7846[facility]28-89 09:47:00 Test Item Value Reference Range Interpretation Comments Metamyelocytes (test code 1.0 See_Comment [ Automated message] = Metamyelocytes) The system which generated this result transmitted ref erence range: <=1.0. T he reference range was not used to int erpret this result as normal/abnormal . [facility]BxrkbnoIDCGJXSTRF2598-08-67 09:47:00 Test Item Value Reference Range Interpretation Comments Atypical Lymphs (test code = Atypical 0.0 Lymphs) [facility] HospitalFsskudtHIZDSFZEMC2968-00-76 09:47:00 Test Item Value Reference Range Interpretation Comments NRBC (test code = NRBC) 31 [place] 234572-06-18 09:47:00 Test Item Value Reference Range Interpretation Comments RBC Morph (test code = See Note (01/16/22 4:47 RBC Morph) AM) [place] 234572-06-18 09:47:00 Test Item Value Reference Range Interpretation Comments Plt Morph (test code = See Note (01/16/22 4:47 Plt Morph) AM) [facility] HospitalJwhbkmiZENZMGVSHX4084-41-08 09:47:00 Test Item Value Reference Range Interpretation Comments Tot Cell Ct (test code = Tot Cell Ct) 100 1 [facility] HospitalSsupnsxUPJANWONUS2722-06-70 09:47:00 Test Item Value Reference Range Interpretation Comments Anisocyte (test code = 2+ *ABN*(01/16/22 Anisocyte) 4:47 AM) [place] 234572-06-18 09:47:00 Test Item Value Reference Range Interpretation Comments Macrocyte (test code = 1+ *ABN*(01/16/22 Macrocyte) 4:47 AM) [place] 234572-06-18 09:47:00 Test Item Value Reference Range Interpretation Comments Polychrom (test code = Moderate *ABN*(01/16/22 Polychrom) 4:47 AM) [place] 234572-06-18 09:47:00 Test Item Value Reference Range Interpretation Comments Target Cell (test code Moderate *ABN*(01/16/22 = Target Cell) 4:47 AM) [facility] HospitalNvxczgsVJAETVLJHT4311-77-56 09:47:00 Test Item Value Reference Range Interpretation Comments Elliptocyte (test code = Slight *ABN*(01/16/22 Elliptocyte) 4:47 AM) [facility] HospitalKwiyxroVMTYWSAKAN7998-14-51 09:47:00 Test Item Value Reference Range Interpretation Comments Sickle Cell (test code Slight *ABN*(01/16/22 = Sickle Cell) 4:47 AM) [facility] HospitalZqjbfwfEVDBYJVSGW8408-98-30 09:47:00 Test Item Value Reference Range Interpretation Comments Giant Plt (test code Moderate *ABN*(01/16/22 = Giant Plt) 4:47 AM) [facility] HospitalFmbutajGUXCDVGHMN7095-55-90 09:47:00 Test Item Value Reference Range Interpretation Comments WBC (test code = WBC) 7.9 3.7-10.4 [facility] HospitalAnhnbzjHTVCDEBVYK4532-29-15 09:47:00 Test Item Value Reference Range Interpretation Comments RBC (test code = RBC) 2.23 4.70-6.10 [facility] HospitalQktipqlIJQTZBIDFD6888-28-27 09:47:00 Test Item Value Reference Range Interpretation Comments Hgb (test code = Hgb) 7.0 14.0-18.0 [facility] HospitalCrsfznuXAULWVSPOZ0443-44-34 09:47:00 Test Item Value Reference Range Interpretation Comments Hct (test code = Hct) 20.5 42.0-54.0 [facility] HospitalCdcuwkqTLQACAQEZM0219-23-94 09:47:00 Test Item Value Reference Range Interpretation Comments MCV (test code = MCV) 91.7 80.0-94.0 [facility] HospitalTfctwllJBAYOHLHNO2627-21-79 09:47:00 Test Item Value Reference Range Interpretation Comments MCH (test code = MCH) 31.2 pg 27.0-31.0 [facility] HospitalOkqgoxwRFKJGTTAJI3615-91-91 09:47:00 Test Item Value Reference Range Interpretation Comments MCHC (test code = MCHC) 34.0 32.0-36.0 [facility] HospitalRqodxcxPJHNZRHNXD7588-05-53 09:47:00 Test Item Value Reference Range Interpretation Comments RDW (test code = RDW) 22.7 11.5-14.5 [place] 234572-06-18 09:47:00 Test Item Value Reference Range Interpretation Comments Platelet (test code = Platelet) 332 133-450 [facility] HospitalXherfghXRIVPPICBY6560-54-55 09:47:00 Test Item Value Reference Range Interpretation Comments MPV (test code = MPV) 7.7 7.4-10.4 [facility] KWQBW6261-70-64 09:47:00 Test Item Value Reference Range Interpretation Comments Ferritin Lvl (test code = Ferritin Lvl) 6899 22-797 [facility] KFDTZZD8627-97-14 09:47:00 Test Item Value Reference Range Interpretation Comments proBNP (test code = 8 See_Comment [Automa aisha message] The proBNP) system which ge nerated this result tra nsmitted reference range : <=125. The reference r duy was not used to int erpret this result as erin l/abnormal. [facility]2022-06-18 09:47:00 Test Item Value Reference Range Interpretation Comments LDH (test code = LDH) 722 98-192 [facility]2022-06-18 09:47:00 Test Item Value Reference Range Interpretation Comments Bili Total (test code = Bili Total) 3.3 0.2-1.3 [facility]2022-06-18 09:47:00 Test Item Value Reference Range Interpretation Comments Bili Direct (test code 1.4 See_Comment [Aut omated message] The = Bili Direct) system which generated this result tra nsmitted reference range : <=0.3. The reference r duy was not used to int erpret this result as erin l/abnormal. [facility]2022-06-18 09:47:00 Test Item Value Reference Range Interpretation Comments Bili Indirect (test 1.9 See_Comment [Automa aisha message] The code = Bili Indirect) system which generated this result tra nsmitted reference range : <=1.0. The reference r duy was not used to int erpret this result as normal/abnormal . [facility]2022-06-18 09:47:00 Test Item Value Reference Range Interpretation Comments Glucose Lvl (test code = Glucose Lvl) 99 70-99 [facility]2022-06-18 09:47:00 Test Item Value Reference Range Interpretation Comments BUN (test code = BUN) 9 7-22 [place] 261022-06-18 09:47:00 Test Item Value Reference Range Interpretation Comments Creatinine Lvl (test code = Creatinine 0.47 0.50-1.40 Lvl) [place] 261022-06-18 09:47:00 Test Item Value Reference Range Interpretation Comments Sodium Lvl (test code = Sodium Lvl) 132 135-145 [place] 261022-06-18 09:47:00 Test Item Value Reference Range Interpretation Comments Potassium Lvl (test code = Potassium 4.0 3.5-5.1 Lvl) [place] 261022-06-18 09:47:00 Test Item Value Reference Range Interpretation Comments Chloride Lvl (test code = Chloride Lvl) 97 95-109 [place] 261022-06-18 09:47:00 Test Item Value Reference Range Interpretation Comments CO2 (test code = CO2) 27 24-32 [place] 261022-06-18 09:47:00 Test Item Value Reference Range Interpretation Comments Calcium Lvl (test code = Calcium Lvl) 9.2 8.5-10.5 [place] 261022-06-18 09:47:00 Test Item Value Reference Range Interpretation Comments AGAP (test code = AGAP) 12.0 10.0-20.0 [place] 261022-06-18 09:47:00 Test Item Value Reference Range Interpretation Comments eGFR (test code = eGFR) 158 [place] 234572-06-18 09:47:00 Test Item Value Reference Range Interpretation Comments Retic Perf (test code = Yes (01/16/22 4:47 AM) Retic Perf) [place] 234572-06-18 09:47:00 Test Item Value Reference Range Interpretation Comments Retic Auto (test code = Retic Auto) 8.6 0.5-1.5 [place] 234572-06-18 09:47:00 Test Item Value Reference Range Interpretation Comments Neutrophils # (test code = Neutrophils 5.0 1.5-8.1 #) [place] 234572-06-18 09:47:00 Test Item Value Reference Range Interpretation Comments Lymphocytes # (test code = Lymphocytes 2.1 1.0-5.5 #) [place] 234572-06-18 09:47:00 Test Item Value Reference Range Interpretation Comments Monocytes # (test code 0.6 See_Comment [Aut omated message] The = Monocytes #) system which generated this result tra nsmitted reference range : <=0.8. The reference r duy was not used to int erpret this result as normal/abnormal . [place] [address]-06-18 09:47:00 Test Item Value Reference Range Interpretation Comments Eosinophils # (test code 0.2 See_Comment [A utomated message] The = Eosinophils #) system whic h generated this result tra nsmitted reference range : <=0.5. The reference r duy was not used to int erpret this result as normal/abnormal . [place] [address]-06-18 09:47:00 Test Item Value Reference Range Interpretation Comments Segs (test code = Segs) 63.0 45.0-75.0 [place] [address]-06-18 09:47:00 Test Item Value Reference Range Interpretation Comments Bands (test code = 0.0 See_Comment [Automat ed message] The Bands) system which ge nerated this result transmit aisha reference range : <=11.0. The reference r duy was not used to interpr et this result as erin l/abnormal. [place] [address]-06-18 09:47:00 Test Item Value Reference Range Interpretation Comments Lymphocytes (test code = Lymphocytes) 27.0 20.0-40.0 [place] [address]-06-18 09:47:00 Test Item Value Reference Range Interpretation Comments Monocytes (test code = Monocytes) 7.0 2.0-12.0 [place] [address]-06-18 09:47:00 Test Item Value Reference Range Interpretation Comments Eosinophils (test code = 2.0 See_Comment [A utomated message] The Eosinophils) system which ge nerated this result tra nsmitted reference range : <=4.0. The reference r duy was not used to int erpret this result as normal/abnormal . [place] [address]-06-18 09:47:00 Test Item Value Reference Range Interpretation Comments Metamyelocytes (test code 1.0 See_Comment [ Automated message] = Metamyelocytes) The system which generated this result transmitted ref erence range: <=1.0. T he reference range was not used to int erpret this result as normal/abnormal . [facility] HospitalGwmafuyTKMGUXWYCW2596-77-57 09:47:00 Test Item Value Reference Range Interpretation Comments Atypical Lymphs (test code = Atypical 0.0 Lymphs) [place] 234572-06-18 09:47:00 Test Item Value Reference Range Interpretation Comments NRBC (test code = NRBC) 31 [place] 234572-06-18 09:47:00 Test Item Value Reference Range Interpretation Comments RBC Morph (test code = See Note (01/16/22 4:47 RBC Morph) AM) [place] [address]-06-18 09:47:00 Test Item Value Reference Range Interpretation Comments Plt Morph (test code = See Note (01/16/22 4:47 Plt Morph) AM) [place] 234572-06-18 09:47:00 Test Item Value Reference Range Interpretation Comments Tot Cell Ct (test code = Tot Cell Ct) 100 1 [facility] HospitalQgnyvtqABWMKCIYNG6279-39-76 09:47:00 Test Item Value Reference Range Interpretation Comments Anisocyte (test code = 2+ *ABN*(01/16/22 Anisocyte) 4:47 AM) [facility] HospitalGnwczboRCIAZWRLAX0639-37-43 09:47:00 Test Item Value Reference Range Interpretation Comments Macrocyte (test code = 1+ *ABN*(01/16/22 Macrocyte) 4:47 AM) [place] 234572-06-18 09:47:00 Test Item Value Reference Range Interpretation Comments Polychrom (test code = Moderate *ABN*(01/16/22 Polychrom) 4:47 AM) [place] 234572-06-18 09:47:00 Test Item Value Reference Range Interpretation Comments Target Cell (test code Moderate *ABN*(01/16/22 = Target Cell) 4:47 AM) [place] [address]-06-18 09:47:00 Test Item Value Reference Range Interpretation Comments Elliptocyte (test code = Slight *ABN*(01/16/22 Elliptocyte) 4:47 AM) [place] 234572-06-18 09:47:00 Test Item Value Reference Range Interpretation Comments Sickle Cell (test code Slight *ABN*(01/16/22 = Sickle Cell) 4:47 AM) [facility] HospitalLgwqbafOIIKLMVPHW1870-46-05 09:47:00 Test Item Value Reference Range Interpretation Comments Giant Plt (test code Moderate *ABN*(01/16/22 = Giant Plt) 4:47 AM) [facility] HospitalJlwwneaFBQNCFWNFT9819-03-00 09:47:00 Test Item Value Reference Range Interpretation Comments WBC (test code = WBC) 7.9 3.7-10.4 [facility] HospitalQqojdyhOZGYFJQBCP3187-02-18 09:47:00 Test Item Value Reference Range Interpretation Comments RBC (test code = RBC) 2.23 4.70-6.10 [facility] HospitalVubkholHOFBFUAIXY1216-60-80 09:47:00 Test Item Value Reference Range Interpretation Comments Hgb (test code = Hgb) 7.0 14.0-18.0 [place] 234572-06-18 09:47:00 Test Item Value Reference Range Interpretation Comments Hct (test code = Hct) 20.5 42.0-54.0 [facility] HospitalKxyojxbYMNCKOOTZJ9092-49-29 09:47:00 Test Item Value Reference Range Interpretation Comments MCV (test code = MCV) 91.7 80.0-94.0 [facility] HospitalQqeomnmASHBUTCPPS6695-82-74 09:47:00 Test Item Value Reference Range Interpretation Comments MCH (test code = MCH) 31.2 pg 27.0-31.0 [facility] HospitalRwfpxooETENKOLUDW9231-25-77 09:47:00 Test Item Value Reference Range Interpretation Comments MCHC (test code = MCHC) 34.0 32.0-36.0 [facility] HospitalClmevhkKXQPQJIRQI2537-74-87 09:47:00 Test Item Value Reference Range Interpretation Comments RDW (test code = RDW) 22.7 11.5-14.5 [facility] HospitalLjttzimIJUNGOLINZ6522-03-96 09:47:00 Test Item Value Reference Range Interpretation Comments Platelet (test code = Platelet) 332 133-450 [facility] HospitalGxqyrigPALLFNVYMK1556-01-18 09:47:00 Test Item Value Reference Range Interpretation Comments MPV (test code = MPV) 7.7 7.4-10.4 [facility]2022-06-18 09:47:00 Test Item Value Reference Range Interpretation Comments Ferritin Lvl (test code = Ferritin Lvl) 8500 66-594 [facility] ISYGCWS7387-31-31 09:47:00 Test Item Value Reference Range Interpretation Comments proBNP (test code = 8 See_Comment [Automa aisha message] The proBNP) system which ge nerated this result tra nsmitted reference range : <=125. The reference r duy was not used to int erpret this result as erin l/abnormal. [facility]2022-06-18 09:47:00 Test Item Value Reference Range Interpretation Comments LDH (test code = LDH) 722 98-192 [facility]2022-06-18 09:47:00 Test Item Value Reference Range Interpretation Comments Bili Total (test code = Bili Total) 3.3 0.2-1.3 [facility]2022-06-18 09:47:00 Test Item Value Reference Range Interpretation Comments Bili Direct (test code 1.4 See_Comment [Aut omated message] The = Bili Direct) system which generated this result tra nsmitted reference range : <=0.3. The reference r duy was not used to int erpret this result as erin l/abnormal. [facility]2022-06-18 09:47:00 Test Item Value Reference Range Interpretation Comments Bili Indirect (test 1.9 See_Comment [Automa aisha message] The code = Bili Indirect) system which generated this result tra nsmitted reference range : <=1.0. The reference r duy was not used to int erpret this result as normal/abnormal . [facility]2022-06-18 09:47:00 Test Item Value Reference Range Interpretation Comments Glucose Lvl (test code = Glucose Lvl) 99 70-99 [facility]2022-06-18 09:47:00 Test Item Value Reference Range Interpretation Comments BUN (test code = BUN) 9 7-22 [facility]2022-06-18 09:47:00 Test Item Value Reference Range Interpretation Comments Creatinine Lvl (test code = Creatinine 0.47 0.50-1.40 Lvl) [facility]2022-06-18 09:47:00 Test Item Value Reference Range Interpretation Comments Sodium Lvl (test code = Sodium Lvl) 132 135-145 [facility]2022-06-18 09:47:00 Test Item Value Reference Range Interpretation Comments Ferritin Lvl (test code = Ferritin Lvl) 6899 22-525 [facility] [id number] 09:47:00 Test Item Value Reference Range Interpretation Comments proBNP (test code = 8 See_Comment [Automa aisha message] The proBNP) system which ge nerated this result tra nsmitted reference range : <=125. The reference r duy was not used to int erpret this result as erin l/abnormal. [facility] [id number] 09:47:00 Test Item Value Reference Range Interpretation Comments LDH (test code = LDH) 722 98-192 [facility] [id number] 09:47:00 Test Item Value Reference Range Interpretation Comments Bili Total (test code = Bili Total) 3.3 0.2-1.3 [facility] [id number] 09:47:00 Test Item Value Reference Range Interpretation Comments Bili Direct (test code 1.4 See_Comment [Aut omated message] The = Bili Direct) system which generated this result tra nsmitted reference range : <=0.3. The reference r duy was not used to int erpret this result as erin l/abnormal. [facility] [id number] 09:47:00 Test Item Value Reference Range Interpretation Comments Bili Indirect (test 1.9 See_Comment [Automa aisha message] The code = Bili Indirect) system which generated this result tra nsmitted reference range : <=1.0. The reference r duy was not used to int erpret this result as normal/abnormal . [facility] [id number] 09:47:00 Test Item Value Reference Range Interpretation Comments Glucose Lvl (test code = Glucose Lvl) 99 70-99 [facility] [id number] 09:47:00 Test Item Value Reference Range Interpretation Comments BUN (test code = BUN) 9 7-22 [facility]Mir[facility] [id number] 09:47:00 Test Item Value Reference Range Interpretation Comments Creatinine Lvl (test code = Creatinine 0.47 0.50-1.40 Lvl) [facility] [id number] 09:47:00 Test Item Value Reference Range Interpretation Comments Sodium Lvl (test code = Sodium Lvl) 132 135-145 [place] 261022-06-18 09:47:00 Test Item Value Reference Range Interpretation Comments Potassium Lvl (test code = Potassium 4.0 3.5-5.1 Lvl) [place] 261022-06-18 09:47:00 Test Item Value Reference Range Interpretation Comments Chloride Lvl (test code = Chloride Lvl) 97 95-109 [place] 261022-06-18 09:47:00 Test Item Value Reference Range Interpretation Comments CO2 (test code = CO2) 27 24-[address]06-18 09:47:00 Test Item Value Reference Range Interpretation Comments Calcium Lvl (test code = Calcium Lvl) 9.2 8.5-10.[address]06-18 09:47:00 Test Item Value Reference Range Interpretation Comments AGAP (test code = AGAP) 12.0 10.0-20.0 [place] 261022-06-18 09:47:00 Test Item Value Reference Range Interpretation Comments eGFR (test code = eGFR) 158 [place] [address]-06-18 09:47:00 Test Item Value Reference Range Interpretation Comments Retic Perf (test code = Yes (01/16/22 4:47 AM) Retic Perf) [place] [address]-06-18 09:47:00 Test Item Value Reference Range Interpretation Comments Retic Auto (test code = Retic Auto) 8.6 0.5-1.5 [place] [address]-06-18 09:47:00 Test Item Value Reference Range Interpretation Comments Neutrophils # (test code = Neutrophils 5.0 1.5-8.1 #) [place] [address]-06-18 09:47:00 Test Item Value Reference Range Interpretation Comments Lymphocytes # (test code = Lymphocytes 2.1 1.0-5.5 #) [address]06-18 09:47:00 Test Item Value Reference Range Interpretation Comments Monocytes # (test code 0.6 See_Comment [Aut omated message] The = Monocytes #) system which generated this result tra nsmitted reference range : <=0.8. The reference r duy was not used to int erpret this result as normal/abnormal . [place] [address]-06-18 09:47:00 Test Item Value Reference Range Interpretation Comments Eosinophils # (test code 0.2 See_Comment [A utomated message] The = Eosinophils #) system wh h generated this result tra nsmitted reference range : <=0.5. The reference r duy was not used to int erpret this result as normal/abnormal . [facility] HospitalLlamcxvMZEBRNSZHR1923-73-53 09:47:00 Test Item Value Reference Range Interpretation Comments Segs (test code = Segs) 63.0 45.0-75.0 [place] [address]-06-18 09:47:00 Test Item Value Reference Range Interpretation Comments Bands (test code = 0.0 See_Comment [Automat ed message] The Bands) system which ge nerated this result transmit aisha reference range : <=11.0. The reference r duy was not used to interpr et this result as erin l/abnormal. [place] 234572-06-18 09:47:00 Test Item Value Reference Range Interpretation Comments Lymphocytes (test code = Lymphocytes) 27.0 20.0-40.0 [place] [address]-06-18 09:47:00 Test Item Value Reference Range Interpretation Comments Monocytes (test code = Monocytes) 7.0 2.0-12.0 [place] [address]-06-18 09:47:00 Test Item Value Reference Range Interpretation Comments Eosinophils (test code = 2.0 See_Comment [A utomated message] The Eosinophils) system which ge nerated this result tra nsmitted reference range : <=4.0. The reference r duy was not used to int erpret this result as normal/abnormal . [place] [address]-06-18 09:47:00 Test Item Value Reference Range Interpretation Comments Metamyelocytes (test code 1.0 See_Comment [ Automated message] = Metamyelocytes) The system which generated this result transmitted ref erence range: <=1.0. T he reference range was not used to int erpret this result as normal/abnormal . [place] [address]-06-18 09:47:00 Test Item Value Reference Range Interpretation Comments Atypical Lymphs (test code = Atypical 0.0 Lymphs) [place] [address]-06-18 09:47:00 Test Item Value Reference Range Interpretation Comments NRBC (test code = NRBC) 31 [facility]HtprnkyEMVYYMWWXG1314-81-26 09:47:00 Test Item Value Reference Range Interpretation Comments RBC Morph (test code = See Note (01/16/22 4:47 RBC Morph) AM) [facility] HospitalBkwtotfOTBXBZHODL0321-89-04 09:47:00 Test Item Value Reference Range Interpretation Comments Plt Morph (test code = See Note (01/16/22 4:47 Plt Morph) AM) [facility] HospitalHjbtilwSBGUMOVMFR6380-25-06 09:47:00 Test Item Value Reference Range Interpretation Comments Tot Cell Ct (test code = Tot Cell Ct) 100 1 [facility] HospitalMzxtlbpKNUNPLVMPU9023-52-02 09:47:00 Test Item Value Reference Range Interpretation Comments Anisocyte (test code = 2+ *ABN*(01/16/22 Anisocyte) 4:47 AM) [facility] HospitalPbayxdqTFYEKZQCRE9352-58-43 09:47:00 Test Item Value Reference Range Interpretation Comments Macrocyte (test code = 1+ *ABN*(01/16/22 Macrocyte) 4:47 AM) [facility] HospitalRzagmxhIFDZDKMPTW4063-12-99 09:47:00 Test Item Value Reference Range Interpretation Comments Polychrom (test code = Moderate *ABN*(01/16/22 Polychrom) 4:47 AM) [facility] HospitalFddwkwwFQOCDXYBVP3580-66-42 09:47:00 Test Item Value Reference Range Interpretation Comments Target Cell (test code Moderate *ABN*(01/16/22 = Target Cell) 4:47 AM) [facility] HospitalDqiyswdIXMIQAFTJK3499-95-52 09:47:00 Test Item Value Reference Range Interpretation Comments Elliptocyte (test code = Slight *ABN*(01/16/22 Elliptocyte) 4:47 AM) [facility] HospitalHtvqhvhFGBPYDGECP3880-49-89 09:47:00 Test Item Value Reference Range Interpretation Comments Sickle Cell (test code Slight *ABN*(01/16/22 = Sickle Cell) 4:47 AM) [facility] HospitalDhqgyytSMCIYJLIUF1070-25-25 09:47:00 Test Item Value Reference Range Interpretation Comments Giant Plt (test code Moderate *ABN*(01/16/22 = Giant Plt) 4:47 AM) [facility] HospitalGzmarumMVYXFTMYQC5132-54-29 09:47:00 Test Item Value Reference Range Interpretation Comments WBC (test code = WBC) 7.9 3.7-10.4 [facility] HospitalMlvmkamGDNDIONLDL8711-10-29 09:47:00 Test Item Value Reference Range Interpretation Comments RBC (test code = RBC) 2.23 4.70-6.10 [facility] HospitalJjtdksaKEIMXRGPIC7773-24-02 09:47:00 Test Item Value Reference Range Interpretation Comments Hgb (test code = Hgb) 7.0 14.0-18.0 [facility] HospitalDdodhvvNQGFOEQLAA9574-26-05 09:47:00 Test Item Value Reference Range Interpretation Comments Hct (test code = Hct) 20.5 42.0-54.0 [facility] HospitalHwtschdGJISLLQFKJ8362-07-12 09:47:00 Test Item Value Reference Range Interpretation Comments MCV (test code = MCV) 91.7 80.0-94.0 [facility] HospitalPxssmvcCHRPQFRMLQ2829-49-62 09:47:00 Test Item Value Reference Range Interpretation Comments MCH (test code = MCH) 31.2 pg 27.0-31.0 [facility] HospitalFsaztvhZQHNHQCYEA4544-18-07 09:47:00 Test Item Value Reference Range Interpretation Comments MCHC (test code = MCHC) 34.0 32.0-36.0 [facility] HospitalNjjaiwuSDZYIBNTQI1089-42-76 09:47:00 Test Item Value Reference Range Interpretation Comments RDW (test code = RDW) 22.7 11.5-14.5 [facility] HospitalOxrpvoaIPGRZPXJJB5242-35-61 09:47:00 Test Item Value Reference Range Interpretation Comments Platelet (test code = Platelet) 332 133-450 [facility] HospitalLsmvvvqPPIGIHIUKI0528-57-45 09:47:00 Test Item Value Reference Range Interpretation Comments MPV (test code = MPV) 7.7 7.4-10.4 [facility] [id number] 17:10:00 Test Item Value Reference Range Interpretation Comments Source Strep (test code Urine *NA*(01/14/22 = Source Strep) 12:10 PM) [facility] [id number] 17:10:00 Test Item Value Reference Range Interpretation Comments Strep pneumoniae Ag Negative (01/14/22 (test code = Strep 12:10 PM) pneumoniae Ag) [facility] [id number] 17:10:00 Test Item Value Reference Range Interpretation Comments Source Strep (test code Urine *NA*(01/14/22 = Source Strep) 12:10 PM) [facility] [id number] 17:10:00 Test Item Value Reference Range Interpretation Comments Strep pneumoniae Ag Negative (01/14/22 (test code = Strep 12:10 PM) pneumoniae Ag) [facility] [id number] 17:10:00 Test Item Value Reference Range Interpretation Comments Source Strep (test code Urine *NA*(01/14/22 = Source Strep) 12:10 PM) [facility] [id number] 17:10:00 Test Item Value Reference Range Interpretation Comments Strep pneumoniae Ag Negative (01/14/22 (test code = Strep 12:10 PM) pneumoniae Ag) [facility] [id number] 17:10:00 Test Item Value Reference Range Interpretation Comments Source Strep (test code Urine *NA*(01/14/22 = Source Strep) 12:10 PM) [facility] [id number] 17:10:00 Test Item Value Reference Range Interpretation Comments Strep pneumoniae Ag Negative (01/14/22 (test code = Strep 12:10 PM) pneumoniae Ag) [facility] [id number] 08:01:00 Test Item Value Reference Range Interpretation Comments Glucose Lvl (test code = Glucose Lvl) 130 70-99 [facility] [id number] 08:01:00 Test Item Value Reference Range Interpretation Comments BUN (test code = BUN) 10 7-22 [facility] [id number] 08:01:00 Test Item Value Reference Range Interpretation Comments Creatinine Lvl (test code = Creatinine 0.48 0.50-1.40 Lvl) [facility] [id number] 08:01:00 Test Item Value Reference Range Interpretation Comments Sodium Lvl (test code = Sodium Lvl) 132 135-145 [facility] [id number] 08:01:00 Test Item Value Reference Range Interpretation Comments Potassium Lvl (test code = Potassium 3.8 3.5-5.1 Lvl) [facility] [id number] 08:01:00 Test Item Value Reference Range Interpretation Comments Chloride Lvl (test code = Chloride Lvl) 97 95-109 [facility]2022-06-16 08:01:00 Test Item Value Reference Range Interpretation Comments CO2 (test code = CO2) 28 24-32 [place] 261022-06-16 08:01:00 Test Item Value Reference Range Interpretation Comments Calcium Lvl (test code = Calcium Lvl) 8.4 8.5-10.5 [facility]2022-06-16 08:01:00 Test Item Value Reference Range Interpretation Comments AGAP (test code = AGAP) 10.8 10.0-20.0 [facility]2022-06-16 08:01:00 Test Item Value Reference Range Interpretation Comments eGFR (test code = eGFR) 156 [facility] HospitalBniyjrhNCXXQUWYSV2658-73-11 08:01:00 Test Item Value Reference Range Interpretation Comments WBC (test code = WBC) 7.8 3.7-10.4 [place] 234572-06-16 08:01:00 Test Item Value Reference Range Interpretation Comments RBC (test code = RBC) 2.23 4.70-6.10 [place] 234572-06-16 08:01:00 Test Item Value Reference Range Interpretation Comments Hgb (test code = Hgb) 7.4 14.0-18.0 [place] 234572-06-16 08:01:00 Test Item Value Reference Range Interpretation Comments Hct (test code = Hct) 20.5 42.0-54.0 [facility] HospitalKtijaaoECKFTPTKIV5524-63-71 08:01:00 Test Item Value Reference Range Interpretation Comments MCV (test code = MCV) 92.0 80.0-94.0 [place] 234572-06-16 08:01:00 Test Item Value Reference Range Interpretation Comments MCH (test code = MCH) 33.2 pg 27.0-31.0 [place] 234572-06-16 08:01:00 Test Item Value Reference Range Interpretation Comments MCHC (test code = MCHC) 36.1 32.0-36.0 [place] 234572-06-16 08:01:00 Test Item Value Reference Range Interpretation Comments RDW (test code = RDW) 21.4 11.5-14.5 [place] 234572-06-16 08:01:00 Test Item Value Reference Range Interpretation Comments Platelet (test code = Platelet) 215 133-450 [facility] HospitalOmdyusgTLEERDWHAZ4609-45-83 08:01:00 Test Item Value Reference Range Interpretation Comments MPV (test code = MPV) 7.9 7.4-10.4 [facility] HospitalMeqhshbFTLDNDGEJP0852-99-22 08:01:00 Test Item Value Reference Range Interpretation Comments RBC Morph (test code = See Note (01/14/22 3:01 RBC Morph) AM) [facility] HospitalHraxbqkZOLTQPKJMJ7023-35-74 08:01:00 Test Item Value Reference Range Interpretation Comments Plt Morph (test code = Normal (01/14/22 3:01 Plt Morph) AM) [facility] HospitalQpyiysbWRSQUDGRMX0080-24-99 08:01:00 Test Item Value Reference Range Interpretation Comments Anisocyte (test code = 1+ *ABN*(01/14/22 Anisocyte) 3:01 AM) [facility] HospitalQhiiujiTLZOYMQGDG6886-38-35 08:01:00 Test Item Value Reference Range Interpretation Comments Macrocyte (test code = 1+ *ABN*(01/14/22 Macrocyte) 3:01 AM) [facility] HospitalVzpbuotHNNGNIUSXD9043-75-94 08:01:00 Test Item Value Reference Range Interpretation Comments Microcyte (test code = 1+ *ABN*(01/14/22 Microcyte) 3:01 AM) [facility] HospitalHfwaaqxXGQLRZDWZD0207-35-94 08:01:00 Test Item Value Reference Range Interpretation Comments Polychrom (test code = Moderate *ABN*(01/14/22 Polychrom) 3:01 AM) [facility] HospitalUdigxadFTFIEEJIJL0988-24-72 08:01:00 Test Item Value Reference Range Interpretation Comments Target Cell (test code Moderate *ABN*(01/14/22 = Target Cell) 3:01 AM) [facility] HospitalYkrpmhkCIUYJBQYNP4661-43-69 08:01:00 Test Item Value Reference Range Interpretation Comments Schistocyte (test code = 1-3 per HPF Schistocyte) (01/14/22 3:01 AM) [facility] HospitalMekrqamHWBNRDEDOV5608-85-69 08:01:00 Test Item Value Reference Range Interpretation Comments Spherocyte (test code = Occasional Spherocyte) *ABN*(01/14/22 3:01 AM) [facility] HospitalAcsdwngGMRTOUSSJO5770-96-92 08:01:00 Test Item Value Reference Range Interpretation Comments Sickle Cell (test code Moderate *ABN*(01/14/22 = Sickle Cell) 3:01 AM) [place] [address]-06-16 08:01:00 Test Item Value Reference Range Interpretation Comments Segs (test code = Segs) 77.1 45.0-75.0 [place] 234572-06-16 08:01:00 Test Item Value Reference Range Interpretation Comments Lymphocytes (test code = Lymphocytes) 9.8 20.0-40.0 [place] [address]-06-16 08:01:00 Test Item Value Reference Range Interpretation Comments Monocytes (test code = Monocytes) 11.2 2.0-12.0 [place] [address]-06-16 08:01:00 Test Item Value Reference Range Interpretation Comments Eosinophils (test code = 1.1 See_Comment [A utomated message] The Eosinophils) system which ge nerated this result tra nsmitted reference range : <=4.0. The reference r duy was not used to int erpret this result as normal/abnormal . [place] [address]-06-16 08:01:00 Test Item Value Reference Range Interpretation Comments Basophils (test code = 0.8 See_Comment [Aut omated message] The Basophils) system which ge nerated this result tra nsmitted reference range : <=1.0. The reference r duy was not used to int erpret this result as normal/abnormal . [facility] HospitalIphpkkqSNPEYXEFJY2624-23-57 08:01:00 Test Item Value Reference Range Interpretation Comments Neutrophils # (test code = Neutrophils 6.0 1.5-8.1 #) [place] 234572-06-16 08:01:00 Test Item Value Reference Range Interpretation Comments Lymphocytes # (test code = Lymphocytes 0.8 1.0-5.5 #) [place] [address]-06-16 08:01:00 Test Item Value Reference Range Interpretation Comments Monocytes # (test code 0.9 See_Comment [Aut omated message] The = Monocytes #) system which generated this result tra nsmitted reference range : <=0.8. The reference r duy was not used to int erpret this result as normal/abnormal . [place] 234572-06-16 08:01:00 Test Item Value Reference Range Interpretation Comments Basophils # (test code 0.1 See_Comment [Aut omated message] The = Basophils #) system which generated this result tra nsmitted reference range : <=0.2. The reference r duy was not used to int erpret this result as normal/abnormal . [facility]2022-06-16 08:01:00 Test Item Value Reference Range Interpretation Comments Glucose Lvl (test code = Glucose Lvl) 130 70-99 [facility]2022-06-16 08:01:00 Test Item Value Reference Range Interpretation Comments BUN (test code = BUN) 10 7-22 [place] 261022-06-16 08:01:00 Test Item Value Reference Range Interpretation Comments Creatinine Lvl (test code = Creatinine 0.48 0.50-1.40 Lvl) [place] 261022-06-16 08:01:00 Test Item Value Reference Range Interpretation Comments Sodium Lvl (test code = Sodium Lvl) 132 135-145 [place] 261022-06-16 08:01:00 Test Item Value Reference Range Interpretation Comments Potassium Lvl (test code = Potassium 3.8 3.5-5.1 Lvl) [facility]2022-06-16 08:01:00 Test Item Value Reference Range Interpretation Comments Chloride Lvl (test code = Chloride Lvl) 97 95-109 [place] 261022-06-16 08:01:00 Test Item Value Reference Range Interpretation Comments CO2 (test code = CO2) 28 24-32 [place] 261022-06-16 08:01:00 Test Item Value Reference Range Interpretation Comments Calcium Lvl (test code = Calcium Lvl) 8.4 8.5-10.5 [place] 261022-06-16 08:01:00 Test Item Value Reference Range Interpretation Comments AGAP (test code = AGAP) 10.8 10.0-20.0 [place] 261022-06-16 08:01:00 Test Item Value Reference Range Interpretation Comments eGFR (test code = eGFR) 156 [place] 234572-06-16 08:01:00 Test Item Value Reference Range Interpretation Comments WBC (test code = WBC) 7.8 3.7-10.4 [place] 234572-06-16 08:01:00 Test Item Value Reference Range Interpretation Comments RBC (test code = RBC) 2.23 4.70-6.10 [facility] HospitalQasttudQCJTBPTCXS5565-94-90 08:01:00 Test Item Value Reference Range Interpretation Comments Hgb (test code = Hgb) 7.4 14.0-18.0 [facility] HospitalLjajnfxMPDLHVHSXQ7639-01-86 08:01:00 Test Item Value Reference Range Interpretation Comments Hct (test code = Hct) 20.5 42.0-54.0 [facility] HospitalQtdwiupQXMJLXBMDY0683-42-72 08:01:00 Test Item Value Reference Range Interpretation Comments MCV (test code = MCV) 92.0 80.0-94.0 [facility] HospitalYbooxnqIKAJSTQVWF9337-18-42 08:01:00 Test Item Value Reference Range Interpretation Comments MCH (test code = MCH) 33.2 pg 27.0-31.0 [facility] HospitalQuqzmhpLSPGIFMDDC4834-24-63 08:01:00 Test Item Value Reference Range Interpretation Comments MCHC (test code = MCHC) 36.1 32.0-36.0 [facility] HospitalLynmmtoCWVAPOXHPP1037-89-06 08:01:00 Test Item Value Reference Range Interpretation Comments RDW (test code = RDW) 21.4 11.5-14.5 [facility] HospitalGwkkdkdTRPUYSNTXQ3746-83-60 08:01:00 Test Item Value Reference Range Interpretation Comments Platelet (test code = Platelet) 215 133-450 [facility] HospitalVuivvkbPRYSGYQTWC6656-66-36 08:01:00 Test Item Value Reference Range Interpretation Comments MPV (test code = MPV) 7.9 7.4-10.4 [facility] HospitalXsppjnxVYYGTGRPBQ4799-35-47 08:01:00 Test Item Value Reference Range Interpretation Comments RBC Morph (test code = See Note (01/14/22 3:01 RBC Morph) AM) [facility] HospitalZagaizyQBVCOQZMSU8726-88-76 08:01:00 Test Item Value Reference Range Interpretation Comments Plt Morph (test code = Normal (01/14/22 3:01 Plt Morph) AM) [facility] HospitalSeyhhodVPQBZUDIDY7749-62-29 08:01:00 Test Item Value Reference Range Interpretation Comments Anisocyte (test code = 1+ *ABN*(01/14/22 Anisocyte) 3:01 AM) [place] 234572-06-16 08:01:00 Test Item Value Reference Range Interpretation Comments Macrocyte (test code = 1+ *ABN*(01/14/22 Macrocyte) 3:01 AM) [facility] HospitalHolqhlsJCZCYOKETD6831-66-25 08:01:00 Test Item Value Reference Range Interpretation Comments Microcyte (test code = 1+ *ABN*(01/14/22 Microcyte) 3:01 AM) [facility] HospitalUictfoaXUGIMQNUYB0376-59-31 08:01:00 Test Item Value Reference Range Interpretation Comments Polychrom (test code = Moderate *ABN*(01/14/22 Polychrom) 3:01 AM) [facility] HospitalZimlzgqXFEPWXWWRB6699-73-95 08:01:00 Test Item Value Reference Range Interpretation Comments Target Cell (test code Moderate *ABN*(01/14/22 = Target Cell) 3:01 AM) [facility] HospitalBqkmmozNLBTDCBHKS3112-91-60 08:01:00 Test Item Value Reference Range Interpretation Comments Schistocyte (test code = 1-3 per HPF Schistocyte) (01/14/22 3:01 AM) [facility] HospitalNuxbzceKBKWDYNBCP0587-99-07 08:01:00 Test Item Value Reference Range Interpretation Comments Spherocyte (test code = Occasional Spherocyte) *ABN*(01/14/22 3:01 AM) [facility] HospitalFpcitziGNMVACZFAB6065-60-09 08:01:00 Test Item Value Reference Range Interpretation Comments Sickle Cell (test code Moderate *ABN*(01/14/22 = Sickle Cell) 3:01 AM) [facility] HospitalTtuekpwHCQQYGLUYU3056-41-50 08:01:00 Test Item Value Reference Range Interpretation Comments Segs (test code = Segs) 77.1 45.0-75.0 [facility] HospitalFkgvpwvALAXXPDCSQ4766-14-45 08:01:00 Test Item Value Reference Range Interpretation Comments Lymphocytes (test code = Lymphocytes) 9.8 20.0-40.0 [facility] HospitalAxxabktTRLYKWUSCL2141-85-03 08:01:00 Test Item Value Reference Range Interpretation Comments Monocytes (test code = Monocytes) 11.2 2.0-12.0 [facility] HospitalWbprakgAAMYTENZTM9447-77-61 08:01:00 Test Item Value Reference Range Interpretation Comments Eosinophils (test code = 1.1 See_Comment [A utomated message] The Eosinophils) system which ge nerated this result tra nsmitted reference range : <=4.0. The reference r duy was not used to int erpret this result as normal/abnormal . [place] [address]-06-16 08:01:00 Test Item Value Reference Range Interpretation Comments Basophils (test code = 0.8 See_Comment [Aut omated message] The Basophils) system which ge nerated this result tra nsmitted reference range : <=1.0. The reference r duy was not used to int erpret this result as normal/abnormal . [place] 234572-06-16 08:01:00 Test Item Value Reference Range Interpretation Comments Neutrophils # (test code = Neutrophils 6.0 1.5-8.1 #) [place] [address]-06-16 08:01:00 Test Item Value Reference Range Interpretation Comments Lymphocytes # (test code = Lymphocytes 0.8 1.0-5.5 #) [place] [address]-06-16 08:01:00 Test Item Value Reference Range Interpretation Comments Monocytes # (test code 0.9 See_Comment [Aut omated message] The = Monocytes #) system which generated this result tra nsmitted reference range : <=0.8. The reference r duy was not used to int erpret this result as normal/abnormal . [place] [address]-06-16 08:01:00 Test Item Value Reference Range Interpretation Comments Basophils # (test code 0.1 See_Comment [Aut omated message] The = Basophils #) system which generated this result tra nsmitted reference range : <=0.2. The reference r duy was not used to int erpret this result as normal/abnormal . [place] 261022-06-16 08:01:00 Test Item Value Reference Range Interpretation Comments Glucose Lvl (test code = Glucose Lvl) 130 70-99 [place] 261022-06-16 08:01:00 Test Item Value Reference Range Interpretation Comments BUN (test code = BUN) 10 7-22 [place] [address]-06-16 08:01:00 Test Item Value Reference Range Interpretation Comments Creatinine Lvl (test code = Creatinine 0.48 0.50-1.40 Lvl) [place] 261022-06-16 08:01:00 Test Item Value Reference Range Interpretation Comments Sodium Lvl (test code = Sodium Lvl) 132 135-145 [place] 261022-06-16 08:01:00 Test Item Value Reference Range Interpretation Comments Potassium Lvl (test code = Potassium 3.8 3.5-5.1 Lvl) [place] 261022-06-16 08:01:00 Test Item Value Reference Range Interpretation Comments Chloride Lvl (test code = Chloride Lvl) 97 95-109 [place] 261022-06-16 08:01:00 Test Item Value Reference Range Interpretation Comments CO2 (test code = CO2) 28 24-32 [place] 261022-06-16 08:01:00 Test Item Value Reference Range Interpretation Comments Calcium Lvl (test code = Calcium Lvl) 8.4 8.5-10.5 [place] 261022-06-16 08:01:00 Test Item Value Reference Range Interpretation Comments AGAP (test code = AGAP) 10.8 10.0-20.0 [place] 261022-06-16 08:01:00 Test Item Value Reference Range Interpretation Comments eGFR (test code = eGFR) 156 [place] 234572-06-16 08:01:00 Test Item Value Reference Range Interpretation Comments WBC (test code = WBC) 7.8 3.7-10.4 [place] 234572-06-16 08:01:00 Test Item Value Reference Range Interpretation Comments RBC (test code = RBC) 2.23 4.70-6.10 [place] 234572-06-16 08:01:00 Test Item Value Reference Range Interpretation Comments Hgb (test code = Hgb) 7.4 14.0-18.0 [place] [address]-06-16 08:01:00 Test Item Value Reference Range Interpretation Comments Hct (test code = Hct) 20.5 42.0-54.0 [place] [address]-06-16 08:01:00 Test Item Value Reference Range Interpretation Comments MCV (test code = MCV) 92.0 80.0-94.0 [place] [address]-06-16 08:01:00 Test Item Value Reference Range Interpretation Comments MCH (test code = MCH) 33.2 pg 27.0-31.0 [place] 234572-06-16 08:01:00 Test Item Value Reference Range Interpretation Comments MCHC (test code = MCHC) 36.1 32.0-36.0 [facility] HospitalBjwdiqcIEVJTTOHLA6590-70-21 08:01:00 Test Item Value Reference Range Interpretation Comments RDW (test code = RDW) 21.4 11.5-14.5 [facility] HospitalQzxrqxpETOUHMQQSW7061-20-34 08:01:00 Test Item Value Reference Range Interpretation Comments Platelet (test code = Platelet) 215 133-450 [facility] HospitalKhrwlcxAFHEXWZNVA9881-42-05 08:01:00 Test Item Value Reference Range Interpretation Comments MPV (test code = MPV) 7.9 7.4-10.4 [facility] HospitalGdvynryGBBSNKYDNS6921-01-08 08:01:00 Test Item Value Reference Range Interpretation Comments RBC Morph (test code = See Note (01/14/22 3:01 RBC Morph) AM) [facility] HospitalMapvcboSOEAVQCTEM0954-86-76 08:01:00 Test Item Value Reference Range Interpretation Comments Plt Morph (test code = Normal (01/14/22 3:01 Plt Morph) AM) [facility] HospitalDkcdaalCHDEFVUGPM7906-32-01 08:01:00 Test Item Value Reference Range Interpretation Comments Anisocyte (test code = 1+ *ABN*(01/14/22 Anisocyte) 3:01 AM) [facility] HospitalLubytlbUCXPWCHRMC7728-14-32 08:01:00 Test Item Value Reference Range Interpretation Comments Macrocyte (test code = 1+ *ABN*(01/14/22 Macrocyte) 3:01 AM) [facility] HospitalZiriwkwGFKPHMFTTJ1697-43-94 08:01:00 Test Item Value Reference Range Interpretation Comments Microcyte (test code = 1+ *ABN*(01/14/22 Microcyte) 3:01 AM) [facility] HospitalMcfqyouGVYKZQWQVY6644-97-45 08:01:00 Test Item Value Reference Range Interpretation Comments Polychrom (test code = Moderate *ABN*(01/14/22 Polychrom) 3:01 AM) [facility] HospitalVijridqNUREAQMYSP3989-23-69 08:01:00 Test Item Value Reference Range Interpretation Comments Target Cell (test code Moderate *ABN*(01/14/22 = Target Cell) 3:01 AM) [facility] HospitalGvqwnpwNXOGBALLAP9644-37-83 08:01:00 Test Item Value Reference Range Interpretation Comments Schistocyte (test code = 1-3 per HPF Schistocyte) (01/14/22 3:01 AM) [place] [address]-06-16 08:01:00 Test Item Value Reference Range Interpretation Comments Spherocyte (test code = Occasional Spherocyte) *ABN*(01/14/22 3:01 AM) [place] [address]-06-16 08:01:00 Test Item Value Reference Range Interpretation Comments Sickle Cell (test code Moderate *ABN*(01/14/22 = Sickle Cell) 3:01 AM) [place] [address]-06-16 08:01:00 Test Item Value Reference Range Interpretation Comments Segs (test code = Segs) 77.1 45.0-75.0 [place] [address]-06-16 08:01:00 Test Item Value Reference Range Interpretation Comments Lymphocytes (test code = Lymphocytes) 9.8 20.0-40.0 [place] 234572-06-16 08:01:00 Test Item Value Reference Range Interpretation Comments Monocytes (test code = Monocytes) 11.2 2.0-12.0 [place] [address]-06-16 08:01:00 Test Item Value Reference Range Interpretation Comments Eosinophils (test code = 1.1 See_Comment [A utomated message] The Eosinophils) system which ge nerated this result tra nsmitted reference range : <=4.0. The reference r duy was not used to int erpret this result as normal/abnormal . [place] 234572-06-16 08:01:00 Test Item Value Reference Range Interpretation Comments Basophils (test code = 0.8 See_Comment [Aut omated message] The Basophils) system which ge nerated this result tra nsmitted reference range : <=1.0. The reference r duy was not used to int erpret this result as normal/abnormal . [facility]orLXRTUZAMQT3807-12-73 08:01:00 Test Item Value Reference Range Interpretation Comments Neutrophils # (test code = Neutrophils 6.0 1.5-8.1 #) [place] 234572-06-16 08:01:00 Test Item Value Reference Range Interpretation Comments Lymphocytes # (test code = Lymphocytes 0.8 1.0-5.5 #) [place] [address]-06-16 08:01:00 Test Item Value Reference Range Interpretation Comments Monocytes # (test code 0.9 See_Comment [Aut omated message] The = Monocytes #) system which generated this result tra nsmitted reference range : <=0.8. The reference r duy was not used to int erpret this result as normal/abnormal . [facility] HospitalDmejihiGTESNOHKIM4690-65-92 08:01:00 Test Item Value Reference Range Interpretation Comments Basophils # (test code 0.1 See_Comment [Aut omated message] The = Basophils #) system which generated this result tra nsmitted reference range : <=0.2. The reference r duy was not used to int erpret this result as normal/abnormal . [facility] [id number] 08:01:00 Test Item Value Reference Range Interpretation Comments Glucose Lvl (test code = Glucose Lvl) 130 70-99 [facility] [id number] 08:01:00 Test Item Value Reference Range Interpretation Comments BUN (test code = BUN) 10 7-22 [facility] [id number] 08:01:00 Test Item Value Reference Range Interpretation Comments Creatinine Lvl (test code = Creatinine 0.48 0.50-1.40 Lvl) [facility] [id number] 08:01:00 Test Item Value Reference Range Interpretation Comments Sodium Lvl (test code = Sodium Lvl) 132 135-145 [facility] [id number] 08:01:00 Test Item Value Reference Range Interpretation Comments Potassium Lvl (test code = Potassium 3.8 3.5-5.1 Lvl) [facility] [id number] 08:01:00 Test Item Value Reference Range Interpretation Comments Chloride Lvl (test code = Chloride Lvl) 97 95-109 [facility] [id number] 08:01:00 Test Item Value Reference Range Interpretation Comments CO2 (test code = CO2) 28 24-32 [facility] [id number] 08:01:00 Test Item Value Reference Range Interpretation Comments Calcium Lvl (test code = Calcium Lvl) 8.4 8.5-10.5 [facility] [id number] 08:01:00 Test Item Value Reference Range Interpretation Comments AGAP (test code = AGAP) 10.8 10.0-20.0 [facility]2022-06-16 08:01:00 Test Item Value Reference Range Interpretation Comments eGFR (test code = eGFR) 156 [facility] HospitalNkvjmzeTAVBXTVUMS9309-09-84 08:01:00 Test Item Value Reference Range Interpretation Comments WBC (test code = WBC) 7.8 3.7-10.4 [facility] HospitalSegdybwFFIAJTFWQZ2455-21-99 08:01:00 Test Item Value Reference Range Interpretation Comments RBC (test code = RBC) 2.23 4.70-6.10 [facility] HospitalXpzhtsfFGUREBKPLJ7095-36-24 08:01:00 Test Item Value Reference Range Interpretation Comments Hgb (test code = Hgb) 7.4 14.0-18.0 [place] 234572-06-16 08:01:00 Test Item Value Reference Range Interpretation Comments Hct (test code = Hct) 20.5 42.0-54.0 [place] 234572-06-16 08:01:00 Test Item Value Reference Range Interpretation Comments MCV (test code = MCV) 92.0 80.0-94.0 [facility] HospitalMbkxzmjVHEGRXWUEK6812-77-29 08:01:00 Test Item Value Reference Range Interpretation Comments MCH (test code = MCH) 33.2 pg 27.0-31.0 [facility] HospitalNwyvyrfIHFKAACJWH5777-19-11 08:01:00 Test Item Value Reference Range Interpretation Comments MCHC (test code = MCHC) 36.1 32.0-36.0 [facility] HospitalZblahetWDSGWIJYRC0809-86-00 08:01:00 Test Item Value Reference Range Interpretation Comments RDW (test code = RDW) 21.4 11.5-14.5 [place] 234572-06-16 08:01:00 Test Item Value Reference Range Interpretation Comments Platelet (test code = Platelet) 215 133-450 [facility] HospitalGovklzlFDWHGUVOUP1065-97-75 08:01:00 Test Item Value Reference Range Interpretation Comments MPV (test code = MPV) 7.9 7.4-10.4 [place] [address]-06-16 08:01:00 Test Item Value Reference Range Interpretation Comments RBC Morph (test code = See Note (01/14/22 3:01 RBC Morph) AM) [facility] H[id number] 08:01:00 Test Item Value Reference Range Interpretation Comments Plt Morph (test code = Normal (01/14/22 3:01 Plt Morph) AM) [facility] HospitalPmtmtifPRSXYLKYVD8135-57-16 08:01:00 Test Item Value Reference Range Interpretation Comments Anisocyte (test code = 1+ *ABN*(01/14/22 Anisocyte) 3:01 AM) [facility] HospitalAlvkpnoXEPSKSJTCB5317-68-16 08:01:00 Test Item Value Reference Range Interpretation Comments Macrocyte (test code = 1+ *ABN*(01/14/22 Macrocyte) 3:01 AM) [facility] HospitalEbcgeffIISHMQMLGS8186-37-78 08:01:00 Test Item Value Reference Range Interpretation Comments Microcyte (test code = 1+ *ABN*(01/14/22 Microcyte) 3:01 AM) [facility] HospitalEmqcprsJMBWIGWIVE9597-24-37 08:01:00 Test Item Value Reference Range Interpretation Comments Polychrom (test code = Moderate *ABN*(01/14/22 Polychrom) 3:01 AM) [facility] HospitalEcibgfgHEBCXOZXSU6707-67-37 08:01:00 Test Item Value Reference Range Interpretation Comments Target Cell (test code Moderate *ABN*(01/14/22 = Target Cell) 3:01 AM) [facility] HospitalMvjyxiwQYJIOPPVSU7807-24-63 08:01:00 Test Item Value Reference Range Interpretation Comments Schistocyte (test code = 1-3 per HPF Schistocyte) (01/14/22 3:01 AM) [facility] HospitalYeukpskVUBMZXJFOL3305-70-91 08:01:00 Test Item Value Reference Range Interpretation Comments Spherocyte (test code = Occasional Spherocyte) *ABN*(01/14/22 3:01 AM) [facility] HospitalHyjmevsTSGNHTZYHF3596-75-76 08:01:00 Test Item Value Reference Range Interpretation Comments Sickle Cell (test code Moderate *ABN*(01/14/22 = Sickle Cell) 3:01 AM) [facility] HospitalDadwussVOZKJQCGWM5607-35-01 08:01:00 Test Item Value Reference Range Interpretation Comments Segs (test code = Segs) 77.1 45.0-75.0 [facility] HospitalLfmkmlkLMWTQQMAMN1612-68-57 08:01:00 Test Item Value Reference Range Interpretation Comments Lymphocytes (test code = Lymphocytes) 9.8 20.0-40.0 [facility] HospitalKdcwfmzOCUXTEPVPK2490-77-30 08:01:00 Test Item Value Reference Range Interpretation Comments Monocytes (test code = Monocytes) 11.2 2.0-12.0 [facility] HospitalHexynabFGALEXYZPN4569-31-31 08:01:00 Test Item Value Reference Range Interpretation Comments Eosinophils (test code = 1.1 See_Comment [A utomated message] The Eosinophils) system which ge nerated this result tra nsmitted reference range : <=4.0. The reference r duy was not used to int erpret this result as normal/abnormal . [facility] HospitalBozuzcqBCMIGRIZYR2908-76-94 08:01:00 Test Item Value Reference Range Interpretation Comments Basophils (test code = 0.8 See_Comment [Aut omated message] The Basophils) system which ge nerated this result tra nsmitted reference range : <=1.0. The reference r duy was not used to int erpret this result as normal/abnormal . [facility] HospitalIzxyohgOACVAXGJZJ5721-72-41 08:01:00 Test Item Value Reference Range Interpretation Comments Neutrophils # (test code = Neutrophils 6.0 1.5-8.1 #) [facility] HospitalVjjupqiACRVMVVGXF3662-23-26 08:01:00 Test Item Value Reference Range Interpretation Comments Lymphocytes # (test code = Lymphocytes 0.8 1.0-5.5 #) [facility] HospitalHsfxwuaWXPURQBHPG7522-74-16 08:01:00 Test Item Value Reference Range Interpretation Comments Monocytes # (test code 0.9 See_Comment [Aut omated message] The = Monocytes #) system which generated this result tra nsmitted reference range : <=0.8. The reference r duy was not used to int erpret this result as normal/abnormal . [facility] HospitalMbhmfzoKDCLASZIVG4466-54-66 08:01:00 Test Item Value Reference Range Interpretation Comments Basophils # (test code 0.1 See_Comment [Aut omated message] The = Basophils #) system which generated this result tra nsmitted reference range : <=0.2. The reference r duy was not used to int erpret this result as normal/abnormal . [facility]BA[facility] - [id number] 16:49:00 Test Item Value Reference Range Interpretation Comments MRSA by PCR (test Negative (01/13/22 11:49 code = MRSA by PCR) AM) [facility] CampusMOLECULAR [id number] 16:49:00 Test Item Value Reference Range Interpretation Comments Source Respiratory Nasophrngl Swb Panel PCR (test code = *NA*(01/13/22 11:49 AM) Source Respiratory Panel PCR) [facility] [id number] 16:49:00 Test Item Value Reference Range Interpretation Comments Influenza A PCR (test Negative *NA*(01/13/22 code = Influenza A PCR) 11:49 AM) [facility] [id number] 16:49:00 Test Item Value Reference Range Interpretation Comments Influenza B PCR (test Negative *NA*(01/13/22 code = Influenza B PCR) 11:49 AM) [facility] [id number] 16:49:00 Test Item Value Reference Range Interpretation Comments RSV PCR (test code = Negative *NA*(01/13/22 RSV PCR) 11:49 AM) [facility] - [id number] 16:49:00 Test Item Value Reference Range Interpretation Comments MRSA by PCR (test Negative (01/13/22 11:49 code = MRSA by PCR) AM) [facility] [id number] 16:49:00 Test Item Value Reference Range Interpretation Comments Source Respiratory Nasophrngl Swb Panel PCR (test code = *NA*(01/13/22 11:49 AM) Source Respiratory Panel PCR) [facility] [id number] 16:49:00 Test Item Value Reference Range Interpretation Comments Influenza A PCR (test Negative *NA*(01/13/22 code = Influenza A PCR) 11:49 AM) [facility] [id number] 16:49:00 Test Item Value Reference Range Interpretation Comments Influenza B PCR (test Negative *NA*(01/13/22 code = Influenza B PCR) 11:49 AM) [facility] [id number] 16:49:00 Test Item Value Reference Range Interpretation Comments RSV PCR (test code = Negative *NA*(01/13/22 RSV PCR) 11:49 AM) [facility] - [id number] 16:49:00 Test Item Value Reference Range Interpretation Comments MRSA by PCR (test Negative (01/13/22 11:49 code = MRSA by PCR) AM) [facility] [id number] 16:49:00 Test Item Value Reference Range Interpretation Comments Source Respiratory Nasophrngl Swb Panel PCR (test code = *NA*(01/13/22 11:49 AM) Source Respiratory Panel PCR) [facility] [id number] 16:49:00 Test Item Value Reference Range Interpretation Comments Influenza A PCR (test Negative *NA*(01/13/22 code = Influenza A PCR) 11:49 AM) [facility] [id number] 16:49:00 Test Item Value Reference Range Interpretation Comments Influenza B PCR (test Negative *NA*(01/13/22 code = Influenza B PCR) 11:49 AM) [facility] [id number] 16:49:00 Test Item Value Reference Range Interpretation Comments RSV PCR (test code = Negative *NA*(01/13/22 RSV PCR) 11:49 AM) [facility]BA[facility] - [id number] 16:49:00 Test Item Value Reference Range Interpretation Comments MRSA by PCR (test Negative (01/13/22 11:49 code = MRSA by PCR) AM) [facility] [id number] 16:49:00 Test Item Value Reference Range Interpretation Comments Source Respiratory Nasophrngl Swb Panel PCR (test code = *NA*(01/13/22 11:49 AM) Source Respiratory Panel PCR) [facility] [id number] 16:49:00 Test Item Value Reference Range Interpretation Comments Influenza A PCR (test Negative *NA*(01/13/22 code = Influenza A PCR) 11:49 AM) [facility] [id number] 16:49:00 Test Item Value Reference Range Interpretation Comments Influenza B PCR (test Negative *NA*(01/13/22 code = Influenza B PCR) 11:49 AM) [facility] [id number] 16:49:00 Test Item Value Reference Range Interpretation Comments RSV PCR (test code = Negative *NA*(01/13/22 RSV PCR) 11:49 AM) [facility]BodvzwkRZSJRZBRXG8048-30-73 07:59:00 Test Item Value Reference Range Interpretation Comments Basophils (test code = 1.0 See_Comment [Aut omated message] The Basophils) system which ge nerated this result tra nsmitted reference range : <=1.0. The reference r duy was not used to int erpret this result as normal/abnormal . [place] 234572-06-15 07:59:00 Test Item Value Reference Range Interpretation Comments Eosinophils # (test code 0.1 See_Comment [A utomated message] The = Eosinophils #) system [facility] generated this result tra nsmitted reference range : <=0.5. The reference r duy was not used to int erpret this result as normal/abnormal . [place] [address]-06-15 07:59:00 Test Item Value Reference Range Interpretation Comments Basophils # (test code 0.1 See_Comment [Aut omated message] The = Basophils #) system which generated this result tra nsmitted reference range : <=0.2. The reference r duy was not used to int erpret this result as normal/abnormal . [place] 234572-06-15 07:59:00 Test Item Value Reference Range Interpretation Comments Basophils (test code = 1.0 See_Comment [Aut omated message] The Basophils) system which ge nerated this result tra nsmitted reference range : <=1.0. The reference r duy was not used to int erpret this result as normal/abnormal . [place] 234572-06-15 07:59:00 Test Item Value Reference Range Interpretation Comments Eosinophils # (test code 0.1 See_Comment [A utomated message] The = Eosinophils #) system [facility] generated this result tra nsmitted reference range : <=0.5. The reference r duy was not used to int erpret this result as normal/abnormal . [place] 234572-06-15 07:59:00 Test Item Value Reference Range Interpretation Comments Basophils # (test code 0.1 See_Comment [Aut omated message] The = Basophils #) system which generated this result tra nsmitted reference range : <=0.2. The reference r duy was not used to int erpret this result as normal/abnormal . [place] 234572-06-15 07:59:00 Test Item Value Reference Range Interpretation Comments Basophils (test code = 1.0 See_Comment [Aut omated message] The Basophils) system which ge nerated this result tra nsmitted reference range : <=1.0. The reference r duy was not used to int erpret this result as normal/abnormal . [facility] HospitalVuwncktVEUXDEDHGB3142-95-81 07:59:00 Test Item Value Reference Range Interpretation Comments Eosinophils # (test code 0.1 See_Comment [A utomated message] The = Eosinophils #) system [facility] generated this result tra nsmitted reference range : <=0.5. The reference r duy was not used to int erpret this result as normal/abnormal . [place] 234572-06-15 07:59:00 Test Item Value Reference Range Interpretation Comments Basophils # (test code 0.1 See_Comment [Aut omated message] The = Basophils #) system which generated this result tra nsmitted reference range : <=0.2. The reference r duy was not used to int erpret this result as normal/abnormal . [facility] Hospit[id number] 07:59:00 Test Item Value Reference Range Interpretation Comments Basophils (test code = 1.0 See_Comment [Aut omated message] The Basophils) system which ge nerated this result tra nsmitted reference range : <=1.0. The reference r duy was not used to int erpret this result as normal/abnormal . [facility] HospitalDrixeacTDTFKRZHEH2540-38-69 07:59:00 Test Item Value Reference Range Interpretation Comments Eosinophils # (test code 0.1 See_Comment [A utomated message] The = Eosinophils #) system [facility] generated this result tra nsmitted reference range : <=0.5. The reference r duy was not used to int erpret this result as normal/abnormal . [facility] HospitalCiipljzMMYXMTIRUZ2644-99-43 07:59:00 Test Item Value Reference Range Interpretation Comments Basophils # (test code 0.1 See_Comment [Aut omated message] The = Basophils #) system which generated this result tra nsmitted reference range : <=0.2. The reference r duy was not used to int erpret this result as normal/abnormal . [facility]2022-06-14 19:04:00 Test Item Value Reference Range Interpretation Comments Procalcitonin Lvl (test 0.32 See_Comment [Au tomated message] code = Procalcitonin Lvl) Th e system which generated this result transmitted ref erence range: <=0.10. The reference range was not used to interpr et this result as normal/abnormal . [place] 261022-06-14 19:04:00 Test Item Value Reference Range Interpretation Comments Lactic Acid Lvl (test code = Lactic 1.7 0.5-2.2 Acid Lvl) [place] [address]-06-14 19:04:00 Test Item Value Reference Range Interpretation Comments Procalcitonin Lvl (test 0.32 See_Comment [Au tomated message] code = Procalcitonin Lvl) Th e system which generated this result transmitted ref erence range: <=0.10. The reference range was not used to interpr et this result as normal/abnormal . [place] [address]-06-14 19:04:00 Test Item Value Reference Range Interpretation Comments Lactic Acid Lvl (test code = Lactic 1.7 0.5-2.2 Acid Lvl) [place] [address]-06-14 19:04:00 Test Item Value Reference Range Interpretation Comments Procalcitonin Lvl (test 0.32 See_Comment [Au tomated message] code = Procalcitonin Lvl) Th e system which generated this result transmitted ref erence range: <=0.10. The reference range was not used to interpr et this result as normal/abnormal . [place] [address]-06-14 19:04:00 Test Item Value Reference Range Interpretation Comments Lactic Acid Lvl (test code = Lactic 1.7 0.5-2.2 Acid Lvl) [place] [address]-06-14 19:04:00 Test Item Value Reference Range Interpretation Comments Procalcitonin Lvl (test 0.32 See_Comment [Au tomated message] code = Procalcitonin Lvl) Th e system which generated this result transmitted ref erence range: <=0.10. The reference range was not used to interpr et this result as normal/abnormal . [place] [address]-06-14 19:04:00 Test Item Value Reference Range Interpretation Comments Lactic Acid Lvl (test code = Lactic 1.7 0.5-2.2 Acid Lvl) [place] 261022-06-14 08:00:00 Test Item Value Reference Range Interpretation Comments Total Protein (test code = Total 7.0 6.4-8.4 Protein) [place] 261022-06-14 08:00:00 Test Item Value Reference Range Interpretation Comments Albumin Lvl (test code = Albumin Lvl) 3.6 3.5-5.0 [place] 261022-06-14 08:00:00 Test Item Value Reference Range Interpretation Comments ALT (test code = ALT) 42 See_Comment [Auto mated message] The system which ge nerated this result transmit aisha reference range : <=65. The reference range was not used to interpr et this result as erin l/abnormal. [place] 261022-06-14 08:00:00 Test Item Value Reference Range Interpretation Comments AST (test code = AST) 91 See_Comment [Auto mated message] The system which ge nerated this result transmit aisha reference range : <=37. The reference range was not used to interpr et this result as erin l/abnormal. [place] 261022-06-14 08:00:00 Test Item Value Reference Range Interpretation Comments Alk Phos (test code = Alk Phos) 132 39-136 [place] 261022-06-14 08:00:00 Test Item Value Reference Range Interpretation Comments Bili Total (test code = Bili Total) 5.2 0.2-1.3 [place] 261022-06-14 08:00:00 Test Item Value Reference Range Interpretation Comments B/C Ratio (test code = B/C Ratio) 12 1 6-25 [place] [address]-06-14 08:00:00 Test Item Value Reference Range Interpretation Comments Globulin (test code = Globulin) 3.4 2.7-4.2 [place] [address]-06-14 08:00:00 Test Item Value Reference Range Interpretation Comments A/G Ratio (test code = A/G Ratio) 1.1 1 0.7-1.6 [place] 234572-06-14 08:00:00 Test Item Value Reference Range Interpretation Comments Bands (test code = 1.0 See_Comment [Automat ed message] The Bands) system which ge nerated this result transmit aisha reference range : <=11.0. The reference r duy was not used to interpr et this result as erin l/abnormal. [place] 234572-06-14 08:00:00 Test Item Value Reference Range Interpretation Comments Atypical Lymphs (test code = Atypical 0.0 Lymphs) [place] 234572-06-14 08:00:00 Test Item Value Reference Range Interpretation Comments NRBC (test code = NRBC) 15 [place] 234572-06-14 08:00:00 Test Item Value Reference Range Interpretation Comments RBC Morph (test code = See Note (01/12/22 3:00 RBC Morph) AM) [place] 234572-06-14 08:00:00 Test Item Value Reference Range Interpretation Comments Plt Morph (test code = Normal (01/12/22 3:00 Plt Morph) AM) [place] 234572-06-14 08:00:00 Test Item Value Reference Range Interpretation Comments Tot Cell Ct (test code = Tot Cell Ct) 100 1 [place] 234572-06-14 08:00:00 Test Item Value Reference Range Interpretation Comments Baso Stipplin (test Moderate *ABN*(01/12/22 code = Baso Stipplin) 3:00 AM) [place] 261022-06-14 08:00:00 Test Item Value Reference Range Interpretation Comments Total Protein (test code = Total 7.0 6.4-8.4 Protein) [place] 261022-06-14 08:00:00 Test Item Value Reference Range Interpretation Comments Albumin Lvl (test code = Albumin Lvl) 3.6 3.5-5.0 [place] 261022-06-14 08:00:00 Test Item Value Reference Range Interpretation Comments ALT (test code = ALT) 42 See_Comment [Auto mated message] The system which ge nerated this result transmit aisha reference range : <=65. The reference range was not used to interpr et this result as erin l/abnormal. [place] 261022-06-14 08:00:00 Test Item Value Reference Range Interpretation Comments AST (test code = AST) 91 See_Comment [Auto mated message] The system which ge nerated this result transmit aisha reference range : <=37. The reference range was not used to interpr et this result as erin l/abnormal. [place] 261022-06-14 08:00:00 Test Item Value Reference Range Interpretation Comments Alk Phos (test code = Alk Phos) 132 39-136 [place] 261022-06-14 08:00:00 Test Item Value Reference Range Interpretation Comments Bili Total (test code = Bili Total) 5.2 0.2-1.3 [place] 261022-06-14 08:00:00 Test Item Value Reference Range Interpretation Comments B/C Ratio (test code = B/C Ratio) 12 1 6-25 [place] [address]-06-14 08:00:00 Test Item Value Reference Range Interpretation Comments Globulin (test code = Globulin) 3.4 2.7-4.2 [place] 261022-06-14 08:00:00 Test Item Value Reference Range Interpretation Comments A/G Ratio (test code = A/G Ratio) 1.1 1 0.7-1.6 [place] 234572-06-14 08:00:00 Test Item Value Reference Range Interpretation Comments Bands (test code = 1.0 See_Comment [Automat ed message] The Bands) system which ge nerated this result transmit aisha reference range : <=11.0. The reference r duy was not used to interpr et this result as erin l/abnormal. [place] 234572-06-14 08:00:00 Test Item Value Reference Range Interpretation Comments Atypical Lymphs (test code = Atypical 0.0 Lymphs) [place] 234572-06-14 08:00:00 Test Item Value Reference Range Interpretation Comments NRBC (test code = NRBC) 15 [place] 234572-06-14 08:00:00 Test Item Value Reference Range Interpretation Comments RBC Morph (test code = See Note (01/12/22 3:00 RBC Morph) AM) [place] 234572-06-14 08:00:00 Test Item Value Reference Range Interpretation Comments Plt Morph (test code = Normal (01/12/22 3:00 Plt Morph) AM) [place] 234572-06-14 08:00:00 Test Item Value Reference Range Interpretation Comments Tot Cell Ct (test code = Tot Cell Ct) 100 1 [facility]SI3229[facility] 08:00:00 Test Item Value Reference Range Interpretation Comments Baso Stipplin (test Moderate *ABN*(01/12/22 code = Baso Stipplin) 3:00 AM) [place] 261022-06-14 08:00:00 Test Item Value Reference Range Interpretation Comments Total Protein (test code = Total 7.0 6.4-8.4 Protein) [place] 261022-06-14 08:00:00 Test Item Value Reference Range Interpretation Comments Albumin Lvl (test code = Albumin Lvl) 3.6 3.5-5.0 [place] 261022-06-14 08:00:00 Test Item Value Reference Range Interpretation Comments ALT (test code = ALT) 42 See_Comment [Auto mated message] The system which ge nerated this result transmit aisha reference range : <=65. The reference range was not used to interpr et this result as erin l/abnormal. [place] 261022-06-14 08:00:00 Test Item Value Reference Range Interpretation Comments AST (test code = AST) 91 See_Comment [Auto mated message] The system which ge nerated this result transmit aisha reference range : <=37. The reference range was not used to interpr et this result as erin l/abnormal. [place] 261022-06-14 08:00:00 Test Item Value Reference Range Interpretation Comments Alk Phos (test code = Alk Phos) 132 39-136 [place] 261022-06-14 08:00:00 Test Item Value Reference Range Interpretation Comments Bili Total (test code = Bili Total) 5.2 0.2-1.3 [place] 261022-06-14 08:00:00 Test Item Value Reference Range Interpretation Comments B/C Ratio (test code = B/C Ratio) 12 1 6-25 [place] 261022-06-14 08:00:00 Test Item Value Reference Range Interpretation Comments Globulin (test code = Globulin) 3.4 2.7-4.2 [place] 261022-06-14 08:00:00 Test Item Value Reference Range Interpretation Comments A/G Ratio (test code = A/G Ratio) 1.1 1 0.7-1.6 [facility]SqbbujwLIOJQVRGCB8967-45-73 08:00:00 Test Item Value Reference Range Interpretation Comments Bands (test code = 1.0 See_Comment [Automat ed message] The Bands) system which ge nerated this result transmit aisha reference range : <=11.0. The reference r duy was not used to interpr et this result as erin l/abnormal. [facility] HospitalDlffydhQEGHXDWLGQ0880-87-97 08:00:00 Test Item Value Reference Range Interpretation Comments Atypical Lymphs (test code = Atypical 0.0 Lymphs) [facility] HospitalQsotjfiPKGHAFSQBJ7063-19-08 08:00:00 Test Item Value Reference Range Interpretation Comments NRBC (test code = NRBC) 15 [facility] HospitalLymdhftBDDGSSZSKE2582-45-99 08:00:00 Test Item Value Reference Range Interpretation Comments RBC Morph (test code = See Note (01/12/22 3:00 RBC Morph) AM) [facility] HospitalNtiukfuBEEVADHQFL3333-75-15 08:00:00 Test Item Value Reference Range Interpretation Comments Plt Morph (test code = Normal (01/12/22 3:00 Plt Morph) AM) [facility] HospitalQtkjiseATEKQEVCOT5136-32-34 08:00:00 Test Item Value Reference Range Interpretation Comments Tot Cell Ct (test code = Tot Cell Ct) 100 1 [facility] CampusKrdytfdWGHPMJNSQU0227-69-62 08:00:00 Test Item Value Reference Range Interpretation Comments Baso Stipplin (test Moderate *ABN*(01/12/22 code = Baso Stipplin) 3:00 AM) [facility] KNRHX8900-08-19 08:00:00 Test Item Value Reference Range Interpretation Comments Total Protein (test code = Total 7.0 6.4-8.4 Protein) [facility] CampusMirifice [id number] 08:00:00 Test Item Value Reference Range Interpretation Comments Albumin Lvl (test code = Albumin Lvl) 3.6 3.5-5.0 [facility] SVDJY5395-34-65 08:00:00 Test Item Value Reference Range Interpretation Comments ALT (test code = ALT) 42 See_Comment [Auto mated message] The system which ge nerated this result transmit aisha reference range : <=65. The reference range was not used to interpr et this result as eirn l/abnormal. [place] 261022-06-14 08:00:00 Test Item Value Reference Range Interpretation Comments AST (test code = AST) 91 See_Comment [Auto mated message] The system which ge nerated this result transmit aisha reference range : <=37. The reference range was not used to interpr et this result as erin l/abnormal. [place] 261022-06-14 08:00:00 Test Item Value Reference Range Interpretation Comments Alk Phos (test code = Alk Phos) 132 39-136 [place] 261022-06-14 08:00:00 Test Item Value Reference Range Interpretation Comments Bili Total (test code = Bili Total) 5.2 0.2-1.3 [place] 261022-06-14 08:00:00 Test Item Value Reference Range Interpretation Comments B/C Ratio (test code = B/C Ratio) 12 1 6-25 [place] [address]-06-14 08:00:00 Test Item Value Reference Range Interpretation Comments Globulin (test code = Globulin) 3.4 2.7-4.2 [place] 261022-06-14 08:00:00 Test Item Value Reference Range Interpretation Comments A/G Ratio (test code = A/G Ratio) 1.1 1 0.7-1.6 [place] [address]-06-14 08:00:00 Test Item Value Reference Range Interpretation Comments Bands (test code = 1.0 See_Comment [Automat ed message] The Bands) system which ge nerated this result transmit aisha reference range : <=11.0. The reference r duy was not used to interpr et this result as erin l/abnormal. [place] 234572-06-14 08:00:00 Test Item Value Reference Range Interpretation Comments Atypical Lymphs (test code = Atypical 0.0 Lymphs) [place] 234572-06-14 08:00:00 Test Item Value Reference Range Interpretation Comments NRBC (test code = NRBC) 15 [place] 234572-06-14 08:00:00 Test Item Value Reference Range Interpretation Comments RBC Morph (test code = See Note (01/12/22 3:00 RBC Morph) AM) [place] 234572-06-14 08:00:00 Test Item Value Reference Range Interpretation Comments Plt Morph (test code = Normal (01/12/22 3:00 Plt Morph) AM) [facility] CampusZzhurqpCRMDYTLQGL6204-73-31 08:00:00 Test Item Value Reference Range Interpretation Comments Tot Cell Ct (test code = Tot Cell Ct) 100 1 [facility] HospitalMolsbzrGCKODXSFFB7575-65-24 08:00:00 Test Item Value Reference Range Interpretation Comments Baso Stipplin (test Moderate *ABN*(01/12/22 code = Baso Stipplin) 3:00 AM) [facility] CampusAiuxadpMDYAYEVSZV9789-55-52 09:54:00 Test Item Value Reference Range Interpretation Comments Coronavirus (COVID-19) Not Detected (01/11/22 ALESSIO (test code = 4:54 AM) Coronavirus (COVID-19) ALESSIO) [facility] CampusFkwwswqSWCXRUJGUK4848-30-30 09:54:00 Test Item Value Reference Range Interpretation Comments Coronavirus (COVID-19) Not Detected (01/11/22 ALESSIO (test code = 4:54 AM) Coronavirus (COVID-19) ALESSIO) [facility] CampusCbixexeSMLRKVITNB4458-84-31 09:54:00 Test Item Value Reference Range Interpretation Comments Coronavirus (COVID-19) Not Detected (01/11/22 ALESSIO (test code = 4:54 AM) Coronavirus (COVID-19) ALESSIO) [facility] CampusSmctysdGPWTXOAGQV8035-41-87 09:54:00 Test Item Value Reference Range Interpretation Comments Coronavirus (COVID-19) Not Detected (01/11/22 ALESSIO (test code = 4:54 AM) Coronavirus (COVID-19) ALESSIO) [facility] CampusCARDIAC [id number] 07:45:00 Test Item Value Reference Range Interpretation Comments HS Troponin I (test code = HS Troponin 5 I) [facility] CampusCHEM [id number] 07:45:00 Test Item Value Reference Range Interpretation Comments B/C Ratio (test code = B/C Ratio) 11 1 25 [facility] CampusCHEM [id number] 07:45:00 Test Item Value Reference Range Interpretation Comments Total Protein (test code = Total 7.9 6.4-8.4 Protein) [facility] [id number] 07:45:00 Test Item Value Reference Range Interpretation Comments Albumin Lvl (test code = Albumin Lvl) 4.3 3.5-5.0 [facility]2022-06-13 07:45:00 Test Item Value Reference Range Interpretation Comments Globulin (test code = Globulin) 3.6 2.7-4.2 [facility]2022-06-13 07:45:00 Test Item Value Reference Range Interpretation Comments A/G Ratio (test code = A/G Ratio) 1.2 1 0.7-1.6 [place] 261022-06-13 07:45:00 Test Item Value Reference Range Interpretation Comments ALT (test code = ALT) 41 See_Comment [Auto mated message] The system which ge nerated this result transmit aisha reference range : <=65. The reference range was not used to interpr et this result as erin l/abnormal. [facility]2022-06-13 07:45:00 Test Item Value Reference Range Interpretation Comments AST (test code = AST) 99 See_Comment [Auto mated message] The system which ge nerated this result transmit aisha reference range : <=37. The reference range was not used to interpr et this result as erin l/abnormal. [facility]2022-06-13 07:45:00 Test Item Value Reference Range Interpretation Comments Alk Phos (test code = Alk Phos) 114 39-136 [facility] HospitalXwrwxafTPPLACMGHI2108-93-22 07:45:00 Test Item Value Reference Range Interpretation Comments Bands (test code = 1.0 See_Comment [Automat ed message] The Bands) system which ge nerated this result transmit aisha reference range : <=11.0. The reference r duy was not used to interpr et this result as erin l/abnormal. [facility] HospitalVdrsabmRIOQCROWRK3508-94-11 07:45:00 Test Item Value Reference Range Interpretation Comments Atypical Lymphs (test code = Atypical 0.0 Lymphs) [facility] HospitalUzidxmgNURTOFLPHZ5395-58-30 07:45:00 Test Item Value Reference Range Interpretation Comments Retic Perf (test code = Yes (01/11/22 2:45 AM) Retic Perf) [facility] HospitalDywkfwcEWPANYDZTF7211-14-85 07:45:00 Test Item Value Reference Range Interpretation Comments Retic Auto (test code = Retic Auto) 10.2 0.5-1.5 [facility] CampusCARDIAC [id number] 07:45:00 Test Item Value Reference Range Interpretation Comments HS Troponin I (test code = HS Troponin 5 I) [place] [address]-06-13 07:45:00 Test Item Value Reference Range Interpretation Comments B/C Ratio (test code = B/C Ratio) 11 1 6-25 [place] [address]-06-13 07:45:00 Test Item Value Reference Range Interpretation Comments Total Protein (test code = Total 7.9 6.4-8.4 Protein) [place] 261022-06-13 07:45:00 Test Item Value Reference Range Interpretation Comments Albumin Lvl (test code = Albumin Lvl) 4.3 3.5-5.0 [place] 261022-06-13 07:45:00 Test Item Value Reference Range Interpretation Comments Globulin (test code = Globulin) 3.6 2.7-4.2 [place] 261022-06-13 07:45:00 Test Item Value Reference Range Interpretation Comments A/G Ratio (test code = A/G Ratio) 1.2 1 0.7-1.6 [place] 261022-06-13 07:45:00 Test Item Value Reference Range Interpretation Comments ALT (test code = ALT) 41 See_Comment [Auto mated message] The system which ge nerated this result transmit aisha reference range : <=65. The reference range was not used to interpr et this result as erin l/abnormal. [place] 261022-06-13 07:45:00 Test Item Value Reference Range Interpretation Comments AST (test code = AST) 99 See_Comment [Auto mated message] The system which ge nerated this result transmit aisha reference range : <=37. The reference range was not used to interpr et this result as erin l/abnormal. [place] 261022-06-13 07:45:00 Test Item Value Reference Range Interpretation Comments Alk Phos (test code = Alk Phos) 114 39-136 [facility] HospitalNlybwvoUGJLZRZAPR3357-69-73 07:45:00 Test Item Value Reference Range Interpretation Comments Bands (test code = 1.0 See_Comment [Automat ed message] The Bands) system which ge nerated this result transmit aisha reference range : <=11.0. The reference r duy was not used to interpr et this result as erin l/abnormal. [facility] HospitalMwwuabePOTQOKTNGO1072-87-65 07:45:00 Test Item Value Reference Range Interpretation Comments Atypical Lymphs (test code = Atypical 0.0 Lymphs) [facility] HospitalJopnoezLQAGLUYMIG5452-53-89 07:45:00 Test Item Value Reference Range Interpretation Comments Retic Perf (test code = Yes (01/11/22 2:45 AM) Retic Perf) [facility] HospitalCoutlvxRRFHHOOHFS6223-54-27 07:45:00 Test Item Value Reference Range Interpretation Comments Retic Auto (test code = Retic Auto) 10.2 0.5-1.5 [facility]CARDIAC [id number] 07:45:00 Test Item Value Reference Range Interpretation Comments HS Troponin I (test code = HS Troponin 5 I) [facility] CLINE1921-16-02 07:45:00 Test Item Value Reference Range Interpretation Comments B/C Ratio (test code = B/C Ratio) 11 1 6-25 [facility] [id number] 07:45:00 Test Item Value Reference Range Interpretation Comments Total Protein (test code = Total 7.9 6.4-8.4 Protein) [place] 261022-06-13 07:45:00 Test Item Value Reference Range Interpretation Comments Albumin Lvl (test code = Albumin Lvl) 4.3 3.5-5.0 [place] 261022-06-13 07:45:00 Test Item Value Reference Range Interpretation Comments Globulin (test code = Globulin) 3.6 2.7-4.2 [facility] [id number] 07:45:00 Test Item Value Reference Range Interpretation Comments A/G Ratio (test code = A/G Ratio) 1.2 1 0.7-1.6 [facility] [id number] 07:45:00 Test Item Value Reference Range Interpretation Comments ALT (test code = ALT) 41 See_Comment [Auto mated message] The system which ge nerated this result transmit aisha reference range : <=65. The reference range was not used to interpr et this result as erin l/abnormal. [facility] [id number] 07:45:00 Test Item Value Reference Range Interpretation Comments AST (test code = AST) 99 See_Comment [Auto mated message] The system which ge nerated this result transmit aisha reference range : <=37. The reference range was not used to interpr et this result as erin l/abnormal. [facility]Mirifice [id number] 07:45:00 Test Item Value Reference Range Interpretation Comments Alk Phos (test code = Alk Phos) 114 39-136 [facility] HospitalGkeqovnKUGKDQDIRN9213-15-51 07:45:00 Test Item Value Reference Range Interpretation Comments Bands (test code = 1.0 See_Comment [Automat ed message] The Bands) system which ge nerated this result transmit aisha reference range : <=11.0. The reference r duy was not used to interpr et this result as erin l/abnormal. [facility] HospitalXovxdkrBDULGFDOIJ5504-41-60 07:45:00 Test Item Value Reference Range Interpretation Comments Atypical Lymphs (test code = Atypical 0.0 Lymphs) [facility] HospitalQyggplpTHLVMSPNMY3032-13-49 07:45:00 Test Item Value Reference Range Interpretation Comments Retic Perf (test code = Yes (01/11/22 2:45 AM) Retic Perf) [facility] HospitalFwbbsonPVHXHYRHDL9672-81-58 07:45:00 Test Item Value Reference Range Interpretation Comments Retic Auto (test code = Retic Auto) 10.2 0.5-1.5 [facility]CARD[facility] [id number] 07:45:00 Test Item Value Reference Range Interpretation Comments HS Troponin I (test code = HS Troponin 5 I) [facility]Mir[facility] [id number] 07:45:00 Test Item Value Reference Range Interpretation Comments B/C Ratio (test code = B/C Ratio) 11 1 6-25 [place] 261022-06-13 07:45:00 Test Item Value Reference Range Interpretation Comments Total Protein (test code = Total 7.9 6.4-8.4 Protein) [place] 261022-06-13 07:45:00 Test Item Value Reference Range Interpretation Comments Albumin Lvl (test code = Albumin Lvl) 4.3 3.5-5.0 [place] 261022-06-13 07:45:00 Test Item Value Reference Range Interpretation Comments Globulin (test code = Globulin) 3.6 2.7-4.2 [facility] [id number] 07:45:00 Test Item Value Reference Range Interpretation Comments A/G Ratio (test code = A/G Ratio) 1.2 1 0.7-1.6 [place] [address]-06-13 07:45:00 Test Item Value Reference Range Interpretation Comments ALT (test code = ALT) 41 See_Comment [Auto mated message] The system which ge nerated this result transmit aisha reference range : <=65. The reference range was not used to interpr et this result as erin l/abnormal. [place] 429[address]-06-13 07:45:00 Test Item Value Reference Range Interpretation Comments AST (test code = AST) 99 See_Comment [Auto mated message] The system which ge nerated this result transmit aisha reference range : <=37. The reference range was not used to interpr et this result as erin l/abnormal. [place] 261022-06-13 07:45:00 Test Item Value Reference Range Interpretation Comments Alk Phos (test code = Alk Phos) 114 39-136 [place] [address]-06-13 07:45:00 Test Item Value Reference Range Interpretation Comments Bands (test code = 1.0 See_Comment [Automat ed message] The Bands) system which ge nerated this result transmit aisha reference range : <=11.0. The reference r duy was not used to interpr et this result as erin l/abnormal. [place] 234572-06-13 07:45:00 Test Item Value Reference Range Interpretation Comments Atypical Lymphs (test code = Atypical 0.0 Lymphs) [place] [address]-06-13 07:45:00 Test Item Value Reference Range Interpretation Comments Retic Perf (test code = Yes (01/11/22 2:45 AM) Retic Perf) [place] [address]-06-13 07:45:00 Test Item Value Reference Range Interpretation Comments Retic Auto (test code = Retic Auto) 10.2 0.5-1.5 [place] 261022-06-12 13:20:00 Test Item Value Reference Range Interpretation Comments Glucose Lvl (test code = Glucose Lvl) 116 70-99 [place] 261022-06-12 13:20:00 Test Item Value Reference Range Interpretation Comments BUN (test code = BUN) 8 7-22 [place] 261022-06-12 13:20:00 Test Item Value Reference Range Interpretation Comments Creatinine Lvl (test code = Creatinine 0.65 0.50-1.40 Lvl) [place] [address]-06-12 13:20:00 Test Item Value Reference Range Interpretation Comments Sodium Lvl (test code = Sodium Lvl) 138 135-145 [place] 429[address]-06-12 13:20:00 Test Item Value Reference Range Interpretation Comments Potassium Lvl (test code = Potassium 3.9 3.5-5.1 Lvl) [place] [address]-06-12 13:20:00 Test Item Value Reference Range Interpretation Comments Chloride Lvl (test code = Chloride Lvl) 105 95-109 [place] [address]-06-12 13:20:00 Test Item Value Reference Range Interpretation Comments CO2 (test code = CO2) 27 24-32 [place] [address]-06-12 13:20:00 Test Item Value Reference Range Interpretation Comments Calcium Lvl (test code = Calcium Lvl) 8.8 8.5-10.5 [place] 261022-06-12 13:20:00 Test Item Value Reference Range Interpretation Comments Total Protein (test code = Total 7.6 6.4-8.4 Protein) [place] [address]-06-12 13:20:00 Test Item Value Reference Range Interpretation Comments Albumin Lvl (test code = Albumin Lvl) 4.2 3.5-5.0 [place] [address]-06-12 13:20:00 Test Item Value Reference Range Interpretation Comments ALT (test code = ALT) 26 See_Comment [Auto mated message] The system which nerated this result transmit aisha reference range : <=65. The reference range was not used to interpr et this result as erin l/abnormal. [place] 261022-06-12 13:20:00 Test Item Value Reference Range Interpretation Comments AST (test code = AST) 38 See_Comment [Auto mated message] The system which [employer] nerated this result transmit aisha reference range : <=37. The reference range was not used to interpr et this result as erin l/abnormal. [place] [address]-06-12 13:20:00 Test Item Value Reference Range Interpretation Comments Alk Phos (test code = Alk Phos) 108 39-136 [facility]2022-06-12 13:20:00 Test Item Value Reference Range Interpretation Comments Bili Total (test code = Bili Total) 3.8 0.2-1.3 [place] 261022-06-12 13:20:00 Test Item Value Reference Range Interpretation Comments AGAP (test code = AGAP) 9.9 10.0-20.0 [facility]2022-06-12 13:20:00 Test Item Value Reference Range Interpretation Comments B/C Ratio (test code = B/C Ratio) 12 1 6-25 [place] 261022-06-12 13:20:00 Test Item Value Reference Range Interpretation Comments Globulin (test code = Globulin) 3.4 2.7-4.2 [facility]2022-06-12 13:20:00 Test Item Value Reference Range Interpretation Comments A/G Ratio (test code = A/G Ratio) 1.2 1 0.7-1.6 [place] 261022-06-12 13:20:00 Test Item Value Reference Range Interpretation Comments eGFR (test code = eGFR) 138 [facility] HospitalMjaowpcFOHHPCAOIU6282-34-89 13:20:00 Test Item Value Reference Range Interpretation Comments WBC (test code = WBC) 8.1 3.7-10.4 [facility] HospitalJnkafwqSNVMHTBGDS1697-73-57 13:20:00 Test Item Value Reference Range Interpretation Comments RBC (test code = RBC) 2.79 4.70-6.10 [place] 234572-06-12 13:20:00 Test Item Value Reference Range Interpretation Comments Hgb (test code = Hgb) 9.6 14.0-18.0 [place] [address]-06-12 13:20:00 Test Item Value Reference Range Interpretation Comments Hct (test code = Hct) 25.9 42.0-54.0 [place] [address]-06-12 13:20:00 Test Item Value Reference Range Interpretation Comments MCV (test code = MCV) 92.9 80.0-94.0 [place] [address]-06-12 13:20:00 Test Item Value Reference Range Interpretation Comments MCH (test code = MCH) 34.2 pg 27.0-31.0 [place] [address]-06-12 13:20:00 Test Item Value Reference Range Interpretation Comments MCHC (test code = MCHC) 36.8 32.0-36.0 [facility] HospitalWypfrggGHOFWGYDTE7969-64-91 13:20:00 Test Item Value Reference Range Interpretation Comments RDW (test code = RDW) 23.7 11.5-14.5 [facility] HospitalTupoeiuXBHTSYNVPA5860-44-91 13:20:00 Test Item Value Reference Range Interpretation Comments Platelet (test code = Platelet) 331 133-450 [facility] HospitalOlccqxzSDKOZYOGDP6102-34-10 13:20:00 Test Item Value Reference Range Interpretation Comments MPV (test code = MPV) 7.2 7.4-10.4 [place] 234572-06-12 13:20:00 Test Item Value Reference Range Interpretation Comments Retic Perf (test code = Yes (01/10/22 8:20 AM) Retic Perf) [facility] HospitalOohlmasLFQHKNFARQ3863-85-54 13:20:00 Test Item Value Reference Range Interpretation Comments Retic Auto (test code = Retic Auto) 10.0 0.5-1.5 [facility]UswpjjuXUOZNDOHPV1340-02-59 13:20:00 Test Item Value Reference Range Interpretation Comments RBC Morph (test code = See Note (01/10/22 8:20 RBC Morph) AM) [facility] HospitalTlatwyuRCRMMXJTLY3395-56-79 13:20:00 Test Item Value Reference Range Interpretation Comments Plt Morph (test code = Normal (01/10/22 8:20 Plt Morph) AM) [facility] HospitalKifuupuHIYXLYBRBV7317-99-50 13:20:00 Test Item Value Reference Range Interpretation Comments Segs (test code = Segs) 61.0 45.0-75.0 [place] 234572-06-12 13:20:00 Test Item Value Reference Range Interpretation Comments Bands (test code = 2.0 See_Comment [Automat ed message] The Bands) system which ge nerated this result transmit aisha reference range : <=11.0. The reference r duy was not used to interpr et this result as erin l/abnormal. [facility] HospitalFnqrekuXSJDMZYULV3968-92-32 13:20:00 Test Item Value Reference Range Interpretation Comments Lymphocytes (test code = Lymphocytes) 25.0 20.0-40.0 [place] 234572-06-12 13:20:00 Test Item Value Reference Range Interpretation Comments Monocytes (test code = Monocytes) 10.0 2.0-12.0 [facility] HospitalIhtfkoqROTHBVFWVD8663-20-14 13:20:00 Test Item Value Reference Range Interpretation Comments Eosinophils (test code = 2.0 See_Comment [A utomated message] The Eosinophils) system which ge nerated this result tra nsmitted reference range : <=4.0. The reference r duy was not used to int erpret this result as normal/abnormal . [facility] HospitalOmhxcybWARPTEUCFK6262-53-26 13:20:00 Test Item Value Reference Range Interpretation Comments Neutrophils # (test code = Neutrophils 5.1 1.5-8.1 #) [facility] HospitalRoumbbcARAFWXUWRD7700-14-00 13:20:00 Test Item Value Reference Range Interpretation Comments Lymphocytes # (test code = Lymphocytes 2.0 1.0-5.5 #) [facility] HospitalEhovillVBAEABWPVI2532-59-51 13:20:00 Test Item Value Reference Range Interpretation Comments Monocytes # (test code 0.8 See_Comment [Aut omated message] The = Monocytes #) system which generated this result tra nsmitted reference range : <=0.8. The reference r duy was not used to int erpret this result as normal/abnormal . [facility] HospitalHbjplkaEYJLROLBUC8040-35-20 13:20:00 Test Item Value Reference Range Interpretation Comments Eosinophils # (test code 0.2 See_Comment [A utomated message] The = Eosinophils #) system whic h generated this result tra nsmitted reference range : <=0.5. The reference r duy was not used to int erpret this result as normal/abnormal . [facility] HospitalInbweliKQNGTMMKWN8669-11-14 13:20:00 Test Item Value Reference Range Interpretation Comments NRBC (test code = NRBC) 6 [place] 234572-06-12 13:20:00 Test Item Value Reference Range Interpretation Comments Anisocyte (test code = 1+ *ABN*(01/10/22 Anisocyte) 8:20 AM) [place] [address]-06-12 13:20:00 Test Item Value Reference Range Interpretation Comments Macrocyte (test code = 1+ *ABN*(01/10/22 Macrocyte) 8:20 AM) [place] [address]-06-12 13:20:00 Test Item Value Reference Range Interpretation Comments Microcyte (test code = 1+ *ABN*(01/10/22 Microcyte) 8:20 AM) [place] [address]-06-12 13:20:00 Test Item Value Reference Range Interpretation Comments Polychrom (test code = Moderate *ABN*(01/10/22 Polychrom) 8:20 AM) [place] 234572-06-12 13:20:00 Test Item Value Reference Range Interpretation Comments Target Cell (test code Moderate *ABN*(01/10/22 = Target Cell) 8:20 AM) [place] [address]-06-12 13:20:00 Test Item Value Reference Range Interpretation Comments Tear Cell (test code Moderate *ABN*(01/10/22 = Tear Cell) 8:20 AM) [place] [address]-06-12 13:20:00 Test Item Value Reference Range Interpretation Comments Sickle Cell (test code Slight *ABN*(01/10/22 = Sickle Cell) 8:20 AM) [facility]2022-06-12 13:20:00 Test Item Value Reference Range Interpretation Comments Glucose Lvl (test code = Glucose Lvl) 116 70-99 [place] 261022-06-12 13:20:00 Test Item Value Reference Range Interpretation Comments BUN (test code = BUN) 8 - [place] 261022-06-12 13:20:00 Test Item Value Reference Range Interpretation Comments Creatinine Lvl (test code = Creatinine 0.65 0.50-1.40 Lvl) [place] 261022-06-12 13:20:00 Test Item Value Reference Range Interpretation Comments Sodium Lvl (test code = Sodium Lvl) 138 135-145 [place] 261022-06-12 13:20:00 Test Item Value Reference Range Interpretation Comments Potassium Lvl (test code = Potassium 3.9 3.5-5.1 Lvl) [place] 261022-06-12 13:20:00 Test Item Value Reference Range Interpretation Comments Chloride Lvl (test code = Chloride Lvl) 105 95-109 [place] 261022-06-12 13:20:00 Test Item Value Reference Range Interpretation Comments CO2 (test code = CO2) 27 24-32 [place] 261022-06-12 13:20:00 Test Item Value Reference Range Interpretation Comments Calcium Lvl (test code = Calcium Lvl) 8.8 8.5-10.5 [place] 261022-06-12 13:20:00 Test Item Value Reference Range Interpretation Comments Total Protein (test code = Total 7.6 6.4-8.4 Protein) [place] 261022-06-12 13:20:00 Test Item Value Reference Range Interpretation Comments Albumin Lvl (test code = Albumin Lvl) 4.2 3.5-5.0 [facility] [id number] 13:20:00 Test Item Value Reference Range Interpretation Comments ALT (test code = ALT) 26 See_Comment [Auto mated message] The system which ge nerated this result transmit aisha reference range : <=65. The reference range was not used to interpr et this result as erin l/abnormal. [place] 261022-06-12 13:20:00 Test Item Value Reference Range Interpretation Comments AST (test code = AST) 38 See_Comment [Auto mated message] The system which ge nerated this result transmit aisha reference range : <=37. The reference range was not used to interpr et this result as erin l/abnormal. [facility] [id number] 13:20:00 Test Item Value Reference Range Interpretation Comments Alk Phos (test code = Alk Phos) 108 39-136 [place] 261022-06-12 13:20:00 Test Item Value Reference Range Interpretation Comments Bili Total (test code = Bili Total) 3.8 0.2-1.3 [facility] [id number] 13:20:00 Test Item Value Reference Range Interpretation Comments AGAP (test code = AGAP) 9.9 10.0-20.0 [facility] PGKVY0919-03-74 13:20:00 Test Item Value Reference Range Interpretation Comments B/C Ratio (test code = B/C Ratio) 12 1 6-25 [facility] [id number] 13:20:00 Test Item Value Reference Range Interpretation Comments Globulin (test code = Globulin) 3.4 2.7-4.2 [facility] [id number] 13:20:00 Test Item Value Reference Range Interpretation Comments A/G Ratio (test code = A/G Ratio) 1.2 1 0.7-1.6 [facility]2022-06-12 13:20:00 Test Item Value Reference Range Interpretation Comments eGFR (test code = eGFR) 138 [facility] HospitalZimdjjeLVZRIIOCQC8580-69-43 13:20:00 Test Item Value Reference Range Interpretation Comments WBC (test code = WBC) 8.1 3.7-10.4 [place] 234572-06-12 13:20:00 Test Item Value Reference Range Interpretation Comments RBC (test code = RBC) 2.79 4.70-6.10 [place] 234572-06-12 13:20:00 Test Item Value Reference Range Interpretation Comments Hgb (test code = Hgb) 9.6 14.0-18.0 [place] 234572-06-12 13:20:00 Test Item Value Reference Range Interpretation Comments Hct (test code = Hct) 25.9 42.0-54.0 [facility] HospitalTwuuyycCSAOONXCDT7377-90-54 13:20:00 Test Item Value Reference Range Interpretation Comments MCV (test code = MCV) 92.9 80.0-94.0 [place] 234572-06-12 13:20:00 Test Item Value Reference Range Interpretation Comments MCH (test code = MCH) 34.2 pg 27.0-31.0 [facility] HospitalGozpvteHQDOIXEZNW1635-53-92 13:20:00 Test Item Value Reference Range Interpretation Comments MCHC (test code = MCHC) 36.8 32.0-36.0 [facility] HospitalLqnkkfdWEZBRISHSD5978-82-75 13:20:00 Test Item Value Reference Range Interpretation Comments RDW (test code = RDW) 23.7 11.5-14.5 [place] 234572-06-12 13:20:00 Test Item Value Reference Range Interpretation Comments Platelet (test code = Platelet) 331 133-450 [facility] HospitalCtxtdxyJLWYUPDHKZ3413-70-81 13:20:00 Test Item Value Reference Range Interpretation Comments MPV (test code = MPV) 7.2 7.4-10.4 [place] 234572-06-12 13:20:00 Test Item Value Reference Range Interpretation Comments Retic Perf (test code = Yes (01/10/22 8:20 AM) Retic Perf) [facility] HospitalLhwqqkcBATAGJQHCS8753-99-82 13:20:00 Test Item Value Reference Range Interpretation Comments Retic Auto (test code = Retic Auto) 10.0 0.5-1.5 [place] 234572-06-12 13:20:00 Test Item Value Reference Range Interpretation Comments RBC Morph (test code = See Note (01/10/22 8:20 RBC Morph) AM) [facility] HospitalDhxhhpeXBSNRNBPJD4082-70-35 13:20:00 Test Item Value Reference Range Interpretation Comments Plt Morph (test code = Normal (01/10/22 8:20 Plt Morph) AM) [facility] HospitalUcmuereTKYXUGDTOO1983-36-14 13:20:00 Test Item Value Reference Range Interpretation Comments Segs (test code = Segs) 61.0 45.0-75.0 [place] 234572-06-12 13:20:00 Test Item Value Reference Range Interpretation Comments Bands (test code = 2.0 See_Comment [Automat ed message] The Bands) system which ge nerated this result transmit aisha reference range : <=11.0. The reference r duy was not used to interpr et this result as erin l/abnormal. [facility] HospitalHjdphksRTETZUXDZW5060-34-39 13:20:00 Test Item Value Reference Range Interpretation Comments Lymphocytes (test code = Lymphocytes) 25.0 20.0-40.0 [place] 234572-06-12 13:20:00 Test Item Value Reference Range Interpretation Comments Monocytes (test code = Monocytes) 10.0 2.0-12.0 [place] [address]-06-12 13:20:00 Test Item Value Reference Range Interpretation Comments Eosinophils (test code = 2.0 See_Comment [A utomated message] The Eosinophils) system which ge nerated this result tra nsmitted reference range : <=4.0. The reference r duy was not used to int erpret this result as normal/abnormal . [facility] HospitalYmgslziWTFIZDPNQY1877-12-85 13:20:00 Test Item Value Reference Range Interpretation Comments Neutrophils # (test code = Neutrophils 5.1 1.5-8.1 #) [facility] HospitalXgyxoxuKCBGQUTJRF5244-76-05 13:20:00 Test Item Value Reference Range Interpretation Comments Lymphocytes # (test code = Lymphocytes 2.0 1.0-5.5 #) [facility] HospitalSwoltzeTNKFFYOKJQ7723-19-02 13:20:00 Test Item Value Reference Range Interpretation Comments Monocytes # (test code 0.8 See_Comment [Aut omated message] The = Monocytes #) system which generated this result tra nsmitted reference range : <=0.8. The reference r duy was not used to int erpret this result as normal/abnormal . [facility] HospitalKruwsfuVZHFKGWCSU5144-14-77 13:20:00 Test Item Value Reference Range Interpretation Comments Eosinophils # (test code 0.2 See_Comment [A utomated message] The = Eosinophils #) system whic h generated this result tra nsmitted reference range : <=0.5. The reference r duy was not used to int erpret this result as normal/abnormal . [facility] HospitalRffsfgdREIODBIOFD2700-37-62 13:20:00 Test Item Value Reference Range Interpretation Comments NRBC (test code = NRBC) 6 [facility] HospitalRwjqdoaMLAYBBMXIH5699-28-48 13:20:00 Test Item Value Reference Range Interpretation Comments Anisocyte (test code = 1+ *ABN*(01/10/22 Anisocyte) 8:20 AM) [facility] HospitalLyoxezhEKTHQMDZYX1548-54-24 13:20:00 Test Item Value Reference Range Interpretation Comments Macrocyte (test code = 1+ *ABN*(01/10/22 Macrocyte) 8:20 AM) [place] [address]-06-12 13:20:00 Test Item Value Reference Range Interpretation Comments Microcyte (test code = 1+ *ABN*(01/10/22 Microcyte) 8:20 AM) [place] [address]-06-12 13:20:00 Test Item Value Reference Range Interpretation Comments Polychrom (test code = Moderate *ABN*(01/10/22 Polychrom) 8:20 AM) [place] [address]-06-12 13:20:00 Test Item Value Reference Range Interpretation Comments Target Cell (test code Moderate *ABN*(01/10/22 = Target Cell) 8:20 AM) [place] [address]-06-12 13:20:00 Test Item Value Reference Range Interpretation Comments Tear Cell (test code Moderate *ABN*(01/10/22 = Tear Cell) 8:20 AM) [address]06-12 13:20:00 Test Item Value Reference Range Interpretation Comments Sickle Cell (test code Slight *ABN*(01/10/22 = Sickle Cell) 8:20 AM) [place] 261022-06-12 13:20:00 Test Item Value Reference Range Interpretation Comments Glucose Lvl (test code = Glucose Lvl) 116 70-99 [place] 261022-06-12 13:20:00 Test Item Value Reference Range Interpretation Comments BUN (test code = BUN) 8 7-22 [place] 261022-06-12 13:20:00 Test Item Value Reference Range Interpretation Comments Creatinine Lvl (test code = Creatinine 0.65 0.50-1.40 Lvl) [place] 261022-06-12 13:20:00 Test Item Value Reference Range Interpretation Comments Sodium Lvl (test code = Sodium Lvl) 138 135-145 [place] 261022-06-12 13:20:00 Test Item Value Reference Range Interpretation Comments Potassium Lvl (test code = Potassium 3.9 3.5-5.1 Lvl) [place] 261022-06-12 13:20:00 Test Item Value Reference Range Interpretation Comments Chloride Lvl (test code = Chloride Lvl) 105 95-109 [place] 261022-06-12 13:20:00 Test Item Value Reference Range Interpretation Comments CO2 (test code = CO2) 27 24-32 [place] 261022-06-12 13:20:00 Test Item Value Reference Range Interpretation Comments Calcium Lvl (test code = Calcium Lvl) 8.8 8.5-10.5 [place] 261022-06-12 13:20:00 Test Item Value Reference Range Interpretation Comments Total Protein (test code = Total 7.6 6.4-8.4 Protein) [place] [address]-06-12 13:20:00 Test Item Value Reference Range Interpretation Comments Albumin Lvl (test code = Albumin Lvl) 4.2 3.5-5.0 [place] 261022-06-12 13:20:00 Test Item Value Reference Range Interpretation Comments ALT (test code = ALT) 26 See_Comment [Auto mated message] The system which ge nerated this result transmit aisha reference range : <=65. The reference range was not used to interpr et this result as erin l/abnormal. [place] 261022-06-12 13:20:00 Test Item Value Reference Range Interpretation Comments AST (test code = AST) 38 See_Comment [Auto mated message] The system which ge nerated this result transmit aisha reference range : <=37. The reference range was not used to interpr et this result as erin l/abnormal. [place] 261022-06-12 13:20:00 Test Item Value Reference Range Interpretation Comments Alk Phos (test code = Alk Phos) 108 39-136 [place] 261022-06-12 13:20:00 Test Item Value Reference Range Interpretation Comments Bili Total (test code = Bili Total) 3.8 0.2-1.3 [place] 261022-06-12 13:20:00 Test Item Value Reference Range Interpretation Comments AGAP (test code = AGAP) 9.9 10.0-20.0 [place] 261022-06-12 13:20:00 Test Item Value Reference Range Interpretation Comments B/C Ratio (test code = B/C Ratio) 12 1 6-25 [place] [address]-06-12 13:20:00 Test Item Value Reference Range Interpretation Comments Globulin (test code = Globulin) 3.4 2.7-4.2 [place] 261022-06-12 13:20:00 Test Item Value Reference Range Interpretation Comments A/G Ratio (test code = A/G Ratio) 1.2 1 0.7-1.6 [place] 261022-06-12 13:20:00 Test Item Value Reference Range Interpretation Comments eGFR (test code = eGFR) 138 [place] 234572-06-12 13:20:00 Test Item Value Reference Range Interpretation Comments WBC (test code = WBC) 8.1 3.7-10.4 [place] 234572-06-12 13:20:00 Test Item Value Reference Range Interpretation Comments RBC (test code = RBC) 2.79 4.70-6.10 [place] 234572-06-12 13:20:00 Test Item Value Reference Range Interpretation Comments Hgb (test code = Hgb) 9.6 14.0-18.0 [place] 234572-06-12 13:20:00 Test Item Value Reference Range Interpretation Comments Hct (test code = Hct) 25.9 42.0-54.0 [place] 234572-06-12 13:20:00 Test Item Value Reference Range Interpretation Comments MCV (test code = MCV) 92.9 80.0-94.0 [place] [address]-06-12 13:20:00 Test Item Value Reference Range Interpretation Comments MCH (test code = MCH) 34.2 pg 27.0-31.0 [facility] HospitalCugfjvtHWAYEVEGNH6586-42-55 13:20:00 Test Item Value Reference Range Interpretation Comments MCHC (test code = MCHC) 36.8 32.0-36.0 [place] 234572-06-12 13:20:00 Test Item Value Reference Range Interpretation Comments RDW (test code = RDW) 23.7 11.5-14.5 [place] 234572-06-12 13:20:00 Test Item Value Reference Range Interpretation Comments Platelet (test code = Platelet) 331 133-450 [facility] HospitalTzmrelnNHLUTGNLSH8392-58-83 13:20:00 Test Item Value Reference Range Interpretation Comments MPV (test code = MPV) 7.2 7.4-10.4 [place] [address]-06-12 13:20:00 Test Item Value Reference Range Interpretation Comments Retic Perf (test code = Yes (01/10/22 8:20 AM) Retic Perf) [facility] HospitalXtdepemKWOZRJMFFT0964-27-13 13:20:00 Test Item Value Reference Range Interpretation Comments Retic Auto (test code = Retic Auto) 10.0 0.5-1.5 [place] 234572-06-12 13:20:00 Test Item Value Reference Range Interpretation Comments RBC Morph (test code = See Note (01/10/22 8:20 RBC Morph) AM) [place] 234572-06-12 13:20:00 Test Item Value Reference Range Interpretation Comments Plt Morph (test code = Normal (01/10/22 8:20 Plt Morph) AM) [facility] HospitalGhnpinqDKYLRASWSJ6468-60-86 13:20:00 Test Item Value Reference Range Interpretation Comments Segs (test code = Segs) 61.0 45.0-75.0 [place] [address]-06-12 13:20:00 Test Item Value Reference Range Interpretation Comments Bands (test code = 2.0 See_Comment [Automat ed message] The Bands) system which ge nerated this result transmit aisha reference range : <=11.0. The reference r duy was not used to interpr et this result as erin l/abnormal. [facility] HospitalLoqybaiBNOQJYGYWV5935-15-59 13:20:00 Test Item Value Reference Range Interpretation Comments Lymphocytes (test code = Lymphocytes) 25.0 20.0-40.0 [place] 234572-06-12 13:20:00 Test Item Value Reference Range Interpretation Comments Monocytes (test code = Monocytes) 10.0 2.0-12.0 [place] 234572-06-12 13:20:00 Test Item Value Reference Range Interpretation Comments Eosinophils (test code = 2.0 See_Comment [A utomated message] The Eosinophils) system which ge nerated this result tra nsmitted reference range : <=4.0. The reference r duy was not used to int erpret this result as normal/abnormal . [facility] HospitalWcrbackKQEHSBFWIV1987-79-97 13:20:00 Test Item Value Reference Range Interpretation Comments Neutrophils # (test code = Neutrophils 5.1 1.5-8.1 #) [place] 234572-06-12 13:20:00 Test Item Value Reference Range Interpretation Comments Lymphocytes # (test code = Lymphocytes 2.0 1.0-5.5 #) [facility] HospitalRrenlccCZIYKWWBVG8975-96-76 13:20:00 Test Item Value Reference Range Interpretation Comments Monocytes # (test code 0.8 See_Comment [Aut omated message] The = Monocytes #) system which generated this result tra nsmitted reference range : <=0.8. The reference r duy was not used to int erpret this result as normal/abnormal . [place] 234572-06-12 13:20:00 Test Item Value Reference Range Interpretation Comments Eosinophils # (test code 0.2 See_Comment [A utomated message] The = Eosinophils #) system whic h generated this result tra nsmitted reference range : <=0.5. The reference r duy was not used to int erpret this result as normal/abnormal . [place] 234572-06-12 13:20:00 Test Item Value Reference Range Interpretation Comments NRBC (test code = NRBC) 6 [facility] HospitalWsnwpjiGFZJKEYKNE1648-46-59 13:20:00 Test Item Value Reference Range Interpretation Comments Anisocyte (test code = 1+ *ABN*(01/10/22 Anisocyte) 8:20 AM) [facility] HospitalPcurljbBCGHBLTNZE1219-50-40 13:20:00 Test Item Value Reference Range Interpretation Comments Macrocyte (test code = 1+ *ABN*(01/10/22 Macrocyte) 8:20 AM) [facility] HospitalFmgvwogUAWEEOVCUY9564-47-67 13:20:00 Test Item Value Reference Range Interpretation Comments Microcyte (test code = 1+ *ABN*(01/10/22 Microcyte) 8:20 AM) [facility] HospitalSuzovbmDPDMAREQMV4874-36-40 13:20:00 Test Item Value Reference Range Interpretation Comments Polychrom (test code = Moderate *ABN*(01/10/22 Polychrom) 8:20 AM) [facility] HospitalJhfthezLCONTCQKDQ2922-08-47 13:20:00 Test Item Value Reference Range Interpretation Comments Target Cell (test code Moderate *ABN*(01/10/22 = Target Cell) 8:20 AM) [facility] HospitalXylikamDLNYHOUEPX1866-58-51 13:20:00 Test Item Value Reference Range Interpretation Comments Tear Cell (test code Moderate *ABN*(01/10/22 = Tear Cell) 8:20 AM) [facility] HospitalYjqblolJIEGPCDTBH8964-73-55 13:20:00 Test Item Value Reference Range Interpretation Comments Sickle Cell (test code Slight *ABN*(01/10/22 = Sickle Cell) 8:20 AM) [facility]2022-06-12 13:20:00 Test Item Value Reference Range Interpretation Comments Glucose Lvl (test code = Glucose Lvl) 116 70-99 [facility]2022-06-12 13:20:00 Test Item Value Reference Range Interpretation Comments BUN (test code = BUN) 8 7- [facility]2022-06-12 13:20:00 Test Item Value Reference Range Interpretation Comments Creatinine Lvl (test code = Creatinine 0.65 0.50-1.40 Lvl) [facility]2022-06-12 13:20:00 Test Item Value Reference Range Interpretation Comments Sodium Lvl (test code = Sodium Lvl) 138 135-145 [place] 261022-06-12 13:20:00 Test Item Value Reference Range Interpretation Comments Potassium Lvl (test code = Potassium 3.9 3.5-5.1 Lvl) [place] 261022-06-12 13:20:00 Test Item Value Reference Range Interpretation Comments Chloride Lvl (test code = Chloride Lvl) 105 95-109 [place] 261022-06-12 13:20:00 Test Item Value Reference Range Interpretation Comments CO2 (test code = CO2) 27 24-32 [place] 261022-06-12 13:20:00 Test Item Value Reference Range Interpretation Comments Calcium Lvl (test code = Calcium Lvl) 8.8 8.5-10.5 [place] 261022-06-12 13:20:00 Test Item Value Reference Range Interpretation Comments Total Protein (test code = Total 7.6 6.4-8.4 Protein) [place] 261022-06-12 13:20:00 Test Item Value Reference Range Interpretation Comments Albumin Lvl (test code = Albumin Lvl) 4.2 3.5-5.0 [place] 261022-06-12 13:20:00 Test Item Value Reference Range Interpretation Comments ALT (test code = ALT) 26 See_Comment [Auto mated message] The system which ge nerated this result transmit aisha reference range : <=65. The reference range was not used to interpr et this result as erin l/abnormal. [place] 261022-06-12 13:20:00 Test Item Value Reference Range Interpretation Comments AST (test code = AST) 38 See_Comment [Auto mated message] The system which ge nerated this result transmit aisha reference range : <=37. The reference range was not used to interpr et this result as erin l/abnormal. [place] 261022-06-12 13:20:00 Test Item Value Reference Range Interpretation Comments Alk Phos (test code = Alk Phos) 108 39-136 [place] 261022-06-12 13:20:00 Test Item Value Reference Range Interpretation Comments Bili Total (test code = Bili Total) 3.8 0.2-1.3 [place] [address]-06-12 13:20:00 Test Item Value Reference Range Interpretation Comments AGAP (test code = AGAP) 9.9 10.0-20.0 [place] 261022-06-12 13:20:00 Test Item Value Reference Range Interpretation Comments B/C Ratio (test code = B/C Ratio) 12 1 6-25 [place] [place] [address]-[place]-12 13:20:00 Test Item Value Reference Range Interpretation Comments Globulin (test code = Globulin) 3.4 2.7-4.2 [place] 261022-06-12 13:20:00 Test Item Value Reference Range Interpretation Comments A/G Ratio (test code = A/G Ratio) 1.2 1 0.7-1.6 [place] 261022-06-12 13:20:00 Test Item Value Reference Range Interpretation Comments eGFR (test code = eGFR) 138 [place] 234572-06-12 13:20:00 Test Item Value Reference Range Interpretation Comments WBC (test code = WBC) 8.1 3.7-10.4 [place] 234572-06-12 13:20:00 Test Item Value Reference Range Interpretation Comments RBC (test code = RBC) 2.79 4.70-6.10 [place] [address]-06-12 13:20:00 Test Item Value Reference Range Interpretation Comments Hgb (test code = Hgb) 9.6 14.0-18.0 [place] [address]-06-12 13:20:00 Test Item Value Reference Range Interpretation Comments Hct (test code = Hct) 25.9 42.0-54.0 [place] [address]-06-12 13:20:00 Test Item Value Reference Range Interpretation Comments MCV (test code = MCV) 92.9 80.0-94.0 [place] [address]-06-12 13:20:00 Test Item Value Reference Range Interpretation Comments MCH (test code = MCH) 34.2 pg 27.0-31.0 [place] [address]-06-12 13:20:00 Test Item Value Reference Range Interpretation Comments MCHC (test code = MCHC) 36.8 32.0-36.0 [place] [address]-06-12 13:20:00 Test Item Value Reference Range Interpretation Comments RDW (test code = RDW) 23.7 11.5-14.5 [facility]HwjrfdgYVTYEMENKR4320-66-49 13:20:00 Test Item Value Reference Range Interpretation Comments Platelet (test code = Platelet) 331 133-450 [facility] HospitalNikydkgTZRCHFPBLL0694-49-53 13:20:00 Test Item Value Reference Range Interpretation Comments MPV (test code = MPV) 7.2 7.4-10.4 [place] 234572-06-12 13:20:00 Test Item Value Reference Range Interpretation Comments Retic Perf (test code = Yes (01/10/22 8:20 AM) Retic Perf) [facility] HospitalMqcjfvdWNDSPGZURZ7551-22-41 13:20:00 Test Item Value Reference Range Interpretation Comments Retic Auto (test code = Retic Auto) 10.0 0.5-1.5 [facility] HospitalPjvivbzRTIRWSAEZY6723-77-11 13:20:00 Test Item Value Reference Range Interpretation Comments RBC Morph (test code = See Note (01/10/22 8:20 RBC Morph) AM) [facility] HospitalRhdrppvWSVDYBUGZL5239-55-63 13:20:00 Test Item Value Reference Range Interpretation Comments Plt Morph (test code = Normal (01/10/22 8:20 Plt Morph) AM) [facility] HospitalWdcqfaxZMAWKMXJBC4767-73-22 13:20:00 Test Item Value Reference Range Interpretation Comments Segs (test code = Segs) 61.0 45.0-75.0 [place] 234572-06-12 13:20:00 Test Item Value Reference Range Interpretation Comments Bands (test code = 2.0 See_Comment [Automat ed message] The Bands) system which ge nerated this result transmit aisha reference range : <=11.0. The reference r duy was not used to interpr et this result as erin l/abnormal. [facility] HospitalMbqrnepYDNHKUAIAC1656-21-75 13:20:00 Test Item Value Reference Range Interpretation Comments Lymphocytes (test code = Lymphocytes) 25.0 20.0-40.0 [place] 234572-06-12 13:20:00 Test Item Value Reference Range Interpretation Comments Monocytes (test code = Monocytes) 10.0 2.0-12.0 [place] 234572-06-12 13:20:00 Test Item Value Reference Range Interpretation Comments Eosinophils (test code = 2.0 See_Comment [A utomated message] The Eosinophils) system which ge nerated this result tra nsmitted reference range : <=4.0. The reference r duy was not used to int erpret this result as normal/abnormal . [facility] HospitalFpgspxgWDVWWPJSTK0950-08-51 13:20:00 Test Item Value Reference Range Interpretation Comments Neutrophils # (test code = Neutrophils 5.1 1.5-8.1 #) [facility] HospitalTilrojoAZVFGMOYNY3629-73-18 13:20:00 Test Item Value Reference Range Interpretation Comments Lymphocytes # (test code = Lymphocytes 2.0 1.0-5.5 #) [facility] HospitalTjkmzjlGHQHTBMURH9082-67-12 13:20:00 Test Item Value Reference Range Interpretation Comments Monocytes # (test code 0.8 See_Comment [Aut omated message] The = Monocytes #) system which generated this result tra nsmitted reference range : <=0.8. The reference r duy was not used to int erpret this result as normal/abnormal . [facility] HospitalDtbzjirGNHUKLGRMS7008-33-51 13:20:00 Test Item Value Reference Range Interpretation Comments Eosinophils # (test code 0.2 See_Comment [A utomated message] The = Eosinophils #) system whic h generated this result tra nsmitted reference range : <=0.5. The reference r duy was not used to int erpret this result as normal/abnormal . [facility] HospitalVhwjndbVKHUMQFWYX7538-46-74 13:20:00 Test Item Value Reference Range Interpretation Comments NRBC (test code = NRBC) 6 [facility] HospitalHeoiprlYMUTLGHDAG1748-06-94 13:20:00 Test Item Value Reference Range Interpretation Comments Anisocyte (test code = 1+ *ABN*(01/10/22 Anisocyte) 8:20 AM) [place] [address]-06-12 13:20:00 Test Item Value Reference Range Interpretation Comments Macrocyte (test code = 1+ *ABN*(01/10/22 Macrocyte) 8:20 AM) [place] 234572-06-12 13:20:00 Test Item Value Reference Range Interpretation Comments Microcyte (test code = 1+ *ABN*(01/10/22 Microcyte) 8:20 AM) [place] [address]-06-12 13:20:00 Test Item Value Reference Range Interpretation Comments Polychrom (test code = Moderate *ABN*(01/10/22 Polychrom) 8:20 AM) [facility] HospitalZudjcjfWBZGGSXIOE3579-16-26 13:20:00 Test Item Value Reference Range Interpretation Comments Target Cell (test code Moderate *ABN*(01/10/22 = Target Cell) 8:20 AM) [facility] HospitalMojiujwHHOFDKKICF7220-54-51 13:20:00 Test Item Value Reference Range Interpretation Comments Tear Cell (test code Moderate *ABN*(01/10/22 = Tear Cell) 8:20 AM) [facility] HospitalAuoqypyVIKORAFNGS4090-25-27 13:20:00 Test Item Value Reference Range Interpretation Comments Sickle Cell (test code Slight *ABN*(01/10/22 = Sickle Cell) 8:20 AM) [facility] [Presence] in Respiratory specimen by ALESSIO with probe wdistqnof7438-22-38 00:08:20 Test Item Value Reference Range Interpretation Comments SARS-CoV-2 (COVID-19) RNA Not detected [Presence] in Respiratory specimen by ALESSIO with probe detection (test code = 82550-6) Whether patient is employed in a Unknown healthcare setting (test code = 22322-6) Whether the patient has symptoms Unknown related to condition of interest (test code = 57776-9) Whether the patient was Unknown hospitalized for condition of interest (test code = 57175-8) Whether the patient was admitted Unknown to intensive care unit (ICU) for condition of interest (test code = 53249-9) Whether patient resides in a Unknown congregate care setting (test code = 28898-2) status (test code = Unknown 36545-9) Date and time of symptom onset Unknown (test code = 53879-7) [facility] czqxoem8286-72-19 18:40:00 Test Item Value Reference Range Interpretation Comments Urine culture (test SEE COMMENT Bacteriu sherlyn screen code = 1588904) negative. [facility] ypsjybq6770-34-17 18:40:00 Test Item Value Reference Range Interpretation Comments Urine culture (test SEE COMMENT Bacteriu sherlyn screen code = 2468499) negative. [facility] iyzsqnn3775-42-46 18:40:00 Test Item Value Reference Range Interpretation Comments Urine culture (test SEE COMMENT Bacteriu sherlyn screen code = 5493395) negative. [facility] igluuna3717-59-85 18:40:00 Test Item Value Reference Range Interpretation Comments Urine culture (test SEE COMMENT Bacteriu sherlyn screen code = 1269412) negative. [facility], 1 Ykonp3727-17-30 04:15:00 Test Item Value Reference Range Interpretation Comments Product name (test code Red Blood Cells -1, = 25) Leukored Unit number (test code = [id number]) Product code (test code M5531Z60 = 3092) Dispense status (test Transfused code = 24) Blood expiration date (test code = 302) Blood type code (test code = 308) Blood type (test code = O POSITIVE 1314) Compatibility (test code Compatible = 6400) [facility] RBC, 1 Arpwg8752-81-12 04:15:00 Test Item Value Reference Range Interpretation Comments Product name (test code Red Blood Cells -1, = 25) Leukored Unit number (test code = [id number]) Product code (test code W2875T21 = 3092) Dispense status (test Transfused code = 24) Blood expiration date (test code = 302) Blood type code (test code = 308) Blood type (test code = O POSITIVE 1314) Compatibility (test code Compatible = 6400) [facility] RBC, 1 Ckxay9029-65-92 04:15:00 Test Item Value Reference Range Interpretation Comments Product name (test code Red Blood Cells -1, = 25) Leukored Unit number (test code [id number] = 3980530) Product code (test code E2308L10 = 3092) Dispense status (test Transfused code = 24) Blood expiration date (test code = 302) Blood type code (test 5100 code = 308) Blood type (test code = O POSITIVE 1314) Compatibility (test Compatible code = 6400) [facility] RBC, 1 Ewtah1701-88-68 04:15:00 Test Item Value Reference Range Interpretation Comments Product name (test code Red Blood Cells -1, = 25) Leukored Unit number (test code [id number] = 6879508) Product code (test code B5191Q67 = 3092) Dispense status (test Transfused code = 24) Blood expiration date (test code = 302) Blood type code (test 5100 code = 308) Blood type (test code = O POSITIVE 1314) Compatibility (test Compatible code = 6400) [facility] and qglvqc4966-83-80 23:11:00 Test Item Value Reference Range Interpretation Comments ABO grouping (test code = 883-9) O Rh type (test code = 45437-0) POS Antibody screen (gel) (test code = NEG 890-4) [facility] and wunucc3166-19-45 23:11:00 Test Item Value Reference Range Interpretation Comments ABO grouping (test code = 883-9) O Rh type (test code = 35352-8) POS Antibody screen (gel) (test code = NEG 890-4) [facility] and eecoew0286-43-39 23:11:00 Test Item Value Reference Range Interpretation Comments ABO grouping (test code = 883-9) O Rh type (test code = 96083-6) POS Antibody screen (gel) (test code = NEG 890-4) [facility] and lvdnui1550-29-37 23:11:00 Test Item Value Reference Range Interpretation Comments ABO grouping (test code = 883-9) O Rh type (test code = 38386-6) POS Antibody screen (gel) (test code = NEG 890-4) [facility] 12 ebrz2423-97-46 04:42:03 Test Item Value Reference Range Interpretation Comments Ventricular rate (test code = 253) Atrial rate (test code = 255) [place] interval (test code = 266) QRSD interval [...] of 09-MAY-2021 15:35,-No significant change was found- [facility] 12 tuxq9198-67-32 04:42:03 Test Item Value Reference Range Interpretation Comments Ventricular rate (test code = 253) Atrial rate (test code = 255) [place] interval (test code = 266) QRSD interval [...] of 09-MAY-2021 15:35,-No significant change was found- [address]2022-02-02 04:42:03 Test Item Value Reference Range Interpretation Comments Ventricular rate (test code = 253) Atrial rate (test code = 255) [place] interval (test code = 266) QRSD interval [...] of 09-MAY-2021 15:35,-No significant change was found- [address]2022-02-02 04:42:03 Test Item Value Reference Range Interpretation Comments Ventricular rate (test 78 code = 253) Atrial rate (test code 78 = 255) [place] interval (test code 162 = 266) QRSD [...] of 09-MAY-2021 15:35,-No significant change was found- [facility] hrhuhtb7178-62-66 04:29:40 Test Item Value Reference Range Interpretation Comments Urine culture (test SEE COMMENT Bacteriu sherlyn screen code = 9530586) negative[facility] [Presence] in Respiratory specimen by ALESSIO with probe hjogygqfr7763-20-98 18:52:08 Test Item Value Reference Range Interpretation Comments SARS-CoV-2 (COVID-19) RNA Not detected Not-Detected [Presence] in Respiratory specimen by ALESSIO with probe detection (test code = 91318-2) Whether patient is employed in a healthcare setting (test code = 63000-0) Whether the patient has symptoms related to condition of interest (test code = 22546-9) Patient was hospitalized because of this condition (test code = 03988-3) Whether the patient was admitted to intensive care unit (ICU) for condition of interest (test code = 98497-7) Whether patient resides in a congregate care setting (test code = 43999-7) [facility] urinalysis nwoonfgg0040-70-87 22:36:00 Test Item Value Reference Range Interpretation Comments Color urine, POC (test Dark Yellow code = 6362366) Clarity urine, POC Clear (test code = 2016815) Glucose urine, POC Negative Negative (test code = 4708004) Bilirubin urine, POC Negative Negative (test code = 9010092) Ketones urine, POC Negative Negative (test code = 3517301) Specific gravity urine, 1.005-1.030 POC (test code = 8568188) Blood urine, POC (test Negative Negative code = 1554734) pH urine, POC (test See_Comment [Automa aisha code = 3364709) message] The system which generated this result transmitted reference range : 5.0, 5.5, 6.0, 6.5, 7.0, 7.5, 8.0, 8.5. The reference r duy was not used to interpret this result as normal/abnormal . Protein urine, POC Negative Negative (test code = 8213631) Urobilinogen urine, POC <2.0 A (test code = 2761906) Nitrite urine, POC Negative Negative (test code = 5931255) Leukocyte esterase Negative Negative urine, POC (test code = 0209032) Lab Interpretation Abnormal (test code = 58178-7) [facility] urinalysis ryqaxqei8681-47-17 22:36:00 Test Item Value Reference Range Interpretation Comments Color urine, POC (test Dark Yellow code = 9612526) Clarity urine, POC Clear (test code = 6737029) Glucose urine, POC Negative Negative (test code = 9661365) Bilirubin urine, POC Negative Negative (test code = 3789895) Ketones urine, POC Negative Negative (test code = 9395676) Specific gravity urine, 1.005-1.030 POC (test code = 6916469) Blood urine, POC (test Negative Negative code = 3101057) pH urine, POC (test See_Comment [Automa aisha code = 1632567) message] The system which generated this result transmitted reference range : 5.0, 5.5, 6.0, 6.5, 7.0, 7.5, 8.0, 8.5. The reference r duy was not used to interpret this result as normal/abnormal . Protein urine, POC Negative Negative (test code = 4141903) Urobilinogen urine, POC See_Comment A [Au tomated (test code = 9909449) messag e] The system which generated this result transmitted reference range : <=2.0. The reference range was not used to interpret this result as normal/abnormal . Nitrite urine, POC Negative Negative (test code = 6503140) Leukocyte esterase Negative Negative urine, POC (test code = 5183869) Lab Interpretation Abnormal (test code = 94921-1) [facility] OBTLETY9469-81-67 06:23:00 Test Item Value Reference Range Interpretation Comments Troponin-I (test code no gt See_Comment [Auto mated message] The = Troponin-I) system which g enerated this result transmit aisha reference range : <=0.40. The reference r duy was not used to interpr et this result as erin l/abnormal. [facility] NOPFV2665-85-26 06:23:00 Test Item Value Reference Range Interpretation Comments Glucose Lvl (test code = Glucose Lvl) 93 70-99 [facility] UEHGU7210-26-73 06:23:00 Test Item Value Reference Range Interpretation Comments BUN (test code = BUN) 7 7-22 [place] [address]-08-18 06:23:00 Test Item Value Reference Range Interpretation Comments Creatinine Lvl (test code = Creatinine 0.53 0.50-1.40 Lvl) [place] 261021-08-18 06:23:00 Test Item Value Reference Range Interpretation Comments Sodium Lvl (test code = Sodium Lvl) 140 135-145 [place] 261021-08-18 06:23:00 Test Item Value Reference Range Interpretation Comments Potassium Lvl (test code = Potassium 4.0 3.5-5.1 Lvl) [address]08-18 06:23:00 Test Item Value Reference Range Interpretation Comments Chloride Lvl (test code = Chloride Lvl) 107 95-109 [place] 261021-08-18 06:23:00 Test Item Value Reference Range Interpretation Comments CO2 (test code = CO2) 29 24-32 [place] [address]-08-18 06:23:00 Test Item Value Reference Range Interpretation Comments Calcium Lvl (test code = Calcium Lvl) 8.1 8.5-10.5 [place] [address]-08-18 06:23:00 Test Item Value Reference Range Interpretation Comments Total Protein (test code = Total 7.4 6.4-8.4 Protein) [place] 261021-08-18 06:23:00 Test Item Value Reference Range Interpretation Comments Albumin Lvl (test code = Albumin Lvl) 4.1 3.5-5.0 [place] 261021-08-18 06:23:00 Test Item Value Reference Range Interpretation Comments ALT (test code = ALT) 25 See_Comment [Auto mated message] The system which ge nerated this result transmit aisha reference range : <=65. The reference range was not used to interpr et this result as erin l/abnormal. [place] [address]-08-18 06:23:00 Test Item Value Reference Range Interpretation Comments AST (test code = AST) 26 See_Comment [Auto mated message] The system which ge nerated this result transmit aisha reference range : <=37. The reference range was not used to interpr et this result as erin l/abnormal. [place] [address]-08-18 06:23:00 Test Item Value Reference Range Interpretation Comments Alk Phos (test code = Alk Phos) 83 39-136 [place] 261021-08-18 06:23:00 Test Item Value Reference Range Interpretation Comments Bili Total (test code = Bili Total) 2.4 0.2-1.3 [place] 261021-08-18 06:23:00 Test Item Value Reference Range Interpretation Comments AGAP (test code = AGAP) 8.0 10.0-20.0 [place] 261021-08-18 06:23:00 Test Item Value Reference Range Interpretation Comments B/C Ratio (test code = B/C Ratio) 13 1 6-25 [place] 261021-08-18 06:23:00 Test Item Value Reference Range Interpretation Comments Globulin (test code = Globulin) 3.3 2.7-4.2 [facility]2021-08-18 06:23:00 Test Item Value Reference Range Interpretation Comments A/G Ratio (test code = A/G Ratio) 1.2 1 0.7-1.6 [place] 261021-08-18 06:23:00 Test Item Value Reference Range Interpretation Comments eGFR (test code = eGFR) 151 [facility] HospitalGqfvpndZPBCHIDXDV2585-01-05 06:23:00 Test Item Value Reference Range Interpretation Comments WBC (test code = WBC) 7.4 3.7-10.4 [place] 234571-08-18 06:23:00 Test Item Value Reference Range Interpretation Comments RBC (test code = RBC) 2.64 4.70-6.10 [place] 234571-08-18 06:23:00 Test Item Value Reference Range Interpretation Comments Hgb (test code = Hgb) 10.1 14.0-18.0 [place] [address]-08-18 06:23:00 Test Item Value Reference Range Interpretation Comments Hct (test code = Hct) 28.0 42.0-54.0 [place] 234571-08-18 06:23:00 Test Item Value Reference Range Interpretation Comments MCV (test code = MCV) 106.2 80.0-94.0 [place] 234571-08-18 06:23:00 Test Item Value Reference Range Interpretation Comments MCH (test code = MCH) 38.4 pg 27.0-31.0 [facility] HospitalGhnavzlXTTHRVUSBE8624-86-27 06:23:00 Test Item Value Reference Range Interpretation Comments MCHC (test code = MCHC) 36.2 32.0-36.0 [facility] HospitalItnrazbIZTBSOCEOF0144-18-60 06:23:00 Test Item Value Reference Range Interpretation Comments RDW (test code = RDW) 17.9 11.5-14.5 [facility] HospitalLfajhfgHKTRLANZGE9714-71-91 06:23:00 Test Item Value Reference Range Interpretation Comments Platelet (test code = Platelet) 406 133-450 [facility] HospitalCqhbbfcOEITABXYSA0373-10-53 06:23:00 Test Item Value Reference Range Interpretation Comments MPV (test code = MPV) 7.0 7.4-10.4 [facility] HospitalGkshrlmSPBNMBSUUY0420-01-72 06:23:00 Test Item Value Reference Range Interpretation Comments Retic Auto (test code = Retic Auto) 7.5 0.5-1.5 [facility] HospitalQfdkswoYCXPQPZSPW6148-24-67 06:23:00 Test Item Value Reference Range Interpretation Comments Plt Morph (test code = Normal (03/18/21 1:23 Plt Morph) AM) [facility] HospitalYczmaasAPFMVGQWJV3815-97-24 06:23:00 Test Item Value Reference Range Interpretation Comments Segs (test code = Segs) 39.6 45.0-75.0 [facility] HospitalDifckvuVGTCACDEGK7195-98-85 06:23:00 Test Item Value Reference Range Interpretation Comments Lymphocytes (test code = Lymphocytes) 46.2 20.0-40.0 [place] 234571-08-18 06:23:00 Test Item Value Reference Range Interpretation Comments Monocytes (test code = Monocytes) 8.7 2.0-12.0 [place] 234571-08-18 06:23:00 Test Item Value Reference Range Interpretation Comments Eosinophils (test code = 3.7 See_Comment [A utomated message] The Eosinophils) system which ge nerated this result tra nsmitted reference range : <=4.0. The reference r duy was not used to int erpret this result as normal/abnormal . [facility] HospitalDohhfghBSSXRSDTXY3165-32-44 06:23:00 Test Item Value Reference Range Interpretation Comments Basophils (test code = 1.8 See_Comment [Aut omated message] The Basophils) system which ge nerated this result tra nsmitted reference range : <=1.0. The reference r duy was not used to int erpret this result as normal/abnormal . [facility] HospitalWmoluvqHZPXNBEBHW4179-10-47 06:23:00 Test Item Value Reference Range Interpretation Comments Neutrophils # (test code = Neutrophils 2.9 1.5-8.1 #) [facility] HospitalRdqptqhUAMIBXHMWX7670-89-13 06:23:00 Test Item Value Reference Range Interpretation Comments Lymphocytes # (test code = Lymphocytes 3.4 1.0-5.5 #) [place] 234571-08-18 06:23:00 Test Item Value Reference Range Interpretation Comments Monocytes # (test code 0.6 See_Comment [Aut omated message] The = Monocytes #) system which generated this result tra nsmitted reference range : <=0.8. The reference r duy was not used to int erpret this result as normal/abnormal . [facility] HospitalZasubeiEFVNVGFXLO7448-24-51 06:23:00 Test Item Value Reference Range Interpretation Comments Eosinophils # (test code 0.3 See_Comment [A utomated message] The = Eosinophils #) system whic h generated this result tra nsmitted reference range : <=0.5. The reference r duy was not used to int erpret this result as normal/abnormal . [facility] HospitalYfaazxdCSMSCUEAVX1022-75-65 06:23:00 Test Item Value Reference Range Interpretation Comments Basophils # (test code 0.1 See_Comment [Aut omated message] The = Basophils #) system which generated this result tra nsmitted reference range : <=0.2. The reference r duy was not used to int erpret this result as normal/abnormal . [facility] HospitalRispkkeVZNSGFDHNC3864-66-65 06:23:00 Test Item Value Reference Range Interpretation Comments Anisocyte (test code = 1+ *ABN*(03/18/21 Anisocyte) 1:23 AM) [place] 234571-08-18 06:23:00 Test Item Value Reference Range Interpretation Comments Macrocyte (test code = 1+ *ABN*(03/18/21 Macrocyte) 1:23 AM) [place] 234571-08-18 06:23:00 Test Item Value Reference Range Interpretation Comments Polychrom (test code = Moderate *ABN*(03/18/21 Polychrom) 1:23 AM) [facility]BeusworSMZRVFNVFZ3735-81-30 06:23:00 Test Item Value Reference Range Interpretation Comments Target Cell (test code = Target Cell) Slight [facility] CenterOcsfksoLPXIBAJRPG6421-48-06 06:23:00 Test Item Value Reference Range Interpretation Comments Sickle Cell (test code Slight *ABN*(03/18/21 = Sickle Cell) 1:23 AM) [facility] MWHGMBJ7341-16-00 06:23:00 Test Item Value Reference Range Interpretation Comments Troponin-I (test code no gt See_Comment [Auto mated message] The = Troponin-I) system which g enerated this result transmit aisha reference range : <=0.40. The reference r duy was not used to interpr et this result as erin l/abnormal. [facility] [id number] 06:23:00 Test Item Value Reference Range Interpretation Comments Glucose Lvl (test code = Glucose Lvl) 93 70-99 [facility] [id number] 06:23:00 Test Item Value Reference Range Interpretation Comments BUN (test code = BUN) 7 7-22 [facility] [id number] 06:23:00 Test Item Value Reference Range Interpretation Comments Creatinine Lvl (test code = Creatinine 0.53 0.50-1.40 Lvl) [facility] [id number] 06:23:00 Test Item Value Reference Range Interpretation Comments Sodium Lvl (test code = Sodium Lvl) 140 135-145 [facility] [id number] 06:23:00 Test Item Value Reference Range Interpretation Comments Potassium Lvl (test code = Potassium 4.0 3.5-5.1 Lvl) [facility] [id number] 06:23:00 Test Item Value Reference Range Interpretation Comments Chloride Lvl (test code = Chloride Lvl) 107 95-109 [facility] [id number] 06:23:00 Test Item Value Reference Range Interpretation Comments CO2 (test code = CO2) 29 24-32 [facility] [id number] 06:23:00 Test Item Value Reference Range Interpretation Comments Calcium Lvl (test code = Calcium Lvl) 8.1 8.5-10.5 [facility] [id number] 06:23:00 Test Item Value Reference Range Interpretation Comments Total Protein (test code = Total 7.4 6.4-8.4 Protein) [facility] [id number] 06:23:00 Test Item Value Reference Range Interpretation Comments Albumin Lvl (test code = Albumin Lvl) 4.1 3.5-5.0 [facility] [id number] 06:23:00 Test Item Value Reference Range Interpretation Comments ALT (test code = ALT) 25 See_Comment [Auto mated message] The system which ge nerated this result transmit aisha reference range : <=65. The reference range was not used to interpr et this result as erin l/abnormal. [facility] [id number] 06:23:00 Test Item Value Reference Range Interpretation Comments AST (test code = AST) 26 See_Comment [Auto mated message] The system which ge nerated this result transmit aisha reference range : <=37. The reference range was not used to interpr et this result as erin l/abnormal. [facility] [id number] 06:23:00 Test Item Value Reference Range Interpretation Comments Alk Phos (test code = Alk Phos) 83 39-136 [facility] [id number] 06:23:00 Test Item Value Reference Range Interpretation Comments Bili Total (test code = Bili Total) 2.4 0.2-1.3 [facility] [id number] 06:23:00 Test Item Value Reference Range Interpretation Comments AGAP (test code = AGAP) 8.0 10.0-20.0 [facility] [id number] 06:23:00 Test Item Value Reference Range Interpretation Comments B/C Ratio (test code = B/C Ratio) 13 1 6-25 [facility] [id number] 06:23:00 Test Item Value Reference Range Interpretation Comments Globulin (test code = Globulin) 3.3 2.7-4.2 [facility] [id number] 06:23:00 Test Item Value Reference Range Interpretation Comments A/G Ratio (test code = A/G Ratio) 1.2 1 0.7-1.6 [facility] [id number] 06:23:00 Test Item Value Reference Range Interpretation Comments eGFR (test code = eGFR) 151 [id number] 06:23:00 Test Item Value Reference Range Interpretation Comments WBC (test code = WBC) 7.4 3.7-10.4 [place] 234571-08-18 06:23:00 Test Item Value Reference Range Interpretation Comments RBC (test code = RBC) 2.64 4.70-6.10 [place] 234571-08-18 06:23:00 Test Item Value Reference Range Interpretation Comments Hgb (test code = Hgb) 10.1 14.0-18.0 [place] 234571-08-18 06:23:00 Test Item Value Reference Range Interpretation Comments Hct (test code = Hct) 28.0 42.0-54.0 [place] 234571-08-18 06:23:00 Test Item Value Reference Range Interpretation Comments MCV (test code = MCV) 106.2 80.0-94.0 [place] 234571-08-18 06:23:00 Test Item Value Reference Range Interpretation Comments MCH (test code = MCH) 38.4 pg 27.0-31.0 [facility] H[id number] 06:23:00 Test Item Value Reference Range Interpretation Comments MCHC (test code = MCHC) 36.2 32.0-36.0 [facility] [id number] 06:23:00 Test Item Value Reference Range Interpretation Comments RDW (test code = RDW) 17.9 11.5-14.5 [place] 234571-08-18 06:23:00 Test Item Value Reference Range Interpretation Comments Platelet (test code = Platelet) 406 133-450 [facility] H[id number] 06:23:00 Test Item Value Reference Range Interpretation Comments MPV (test code = MPV) 7.0 7.4-10.4 [place] 234571-08-18 06:23:00 Test Item Value Reference Range Interpretation Comments Retic Auto (test code = Retic Auto) 7.5 0.5-1.5 [place] 234571-08-18 06:23:00 Test Item Value Reference Range Interpretation Comments Plt Morph (test code = Normal (03/18/21 1:23 Plt Morph) AM) [facility] Hos[id number] 06:23:00 Test Item Value Reference Range Interpretation Comments Segs (test code = Segs) 39.6 45.0-75.0 [place] 234571-08-18 06:23:00 Test Item Value Reference Range Interpretation Comments Lymphocytes (test code = Lymphocytes) 46.2 20.0-40.0 [place] [address]-08-18 06:23:00 Test Item Value Reference Range Interpretation Comments Monocytes (test code = Monocytes) 8.7 2.0-12.0 [place] 234571-08-18 06:23:00 Test Item Value Reference Range Interpretation Comments Eosinophils (test code = 3.7 See_Comment [A utomated message] The Eosinophils) system which ge nerated this result tra nsmitted reference range : <=4.0. The reference r duy was not used to int erpret this result as normal/abnormal . [place] 234571-08-18 06:23:00 Test Item Value Reference Range Interpretation Comments Basophils (test code = 1.8 See_Comment [Aut omated message] The Basophils) system which ge nerated this result tra nsmitted reference range : <=1.0. The reference r duy was not used to int erpret this result as normal/abnormal . [place] 234571-08-18 06:23:00 Test Item Value Reference Range Interpretation Comments Neutrophils # (test code = Neutrophils 2.9 1.5-8.1 #) [place] 234571-08-18 06:23:00 Test Item Value Reference Range Interpretation Comments Lymphocytes # (test code = Lymphocytes 3.4 1.0-5.5 #) [place] 234571-08-18 06:23:00 Test Item Value Reference Range Interpretation Comments Monocytes # (test code 0.6 See_Comment [Aut omated message] The = Monocytes #) system which generated this result tra nsmitted reference range : <=0.8. The reference r duy was not used to int erpret this result as normal/abnormal . [place] 234571-08-18 06:23:00 Test Item Value Reference Range Interpretation Comments Eosinophils # (test code 0.3 See_Comment [A utomated message] The = Eosinophils #) system whic h generated this result tra nsmitted reference range : <=0.5. The reference r duy was not used to int erpret this result as normal/abnormal . [facility] C[id number] 06:23:00 Test Item Value Reference Range Interpretation Comments Basophils # (test code 0.1 See_Comment [Aut omated message] The = Basophils #) system which generated this result tra nsmitted reference range : <=0.2. The reference r duy was not used to int erpret this result as normal/abnormal . [facility] CampusNucddarEUMSWKGNFA3409-87-84 06:23:00 Test Item Value Reference Range Interpretation Comments Anisocyte (test code = 1+ *ABN*(03/18/21 Anisocyte) 1:23 AM) [id number] 06:23:00 Test Item Value Reference Range Interpretation Comments Macrocyte (test code = 1+ *ABN*(03/18/21 Macrocyte) 1:23 AM) [facility] HospitalRptyudzHKACVJTLKT2362-46-03 06:23:00 Test Item Value Reference Range Interpretation Comments Polychrom (test code = Moderate *ABN*(03/18/21 Polychrom) 1:23 AM) [facility] CampusZrndzyyAIRRMFCWBJ2726-39-92 06:23:00 Test Item Value Reference Range Interpretation Comments Target Cell (test code = Target Cell) Slight [facility] Hos[id number] 06:23:00 Test Item Value Reference Range Interpretation Comments Sickle Cell (test code Slight *ABN*(03/18/21 = Sickle Cell) 1:23 AM) [facility] CampusCARDIAC [id number] 06:23:00 Test Item Value Reference Range Interpretation Comments Troponin-I (test code no gt See_Comment [Auto mated message] The = Troponin-I) system which g enerated this result transmit aisha reference range : <=0.40. The reference r duy was not used to interpr et this result as erin l/abnormal. [facility] [id number] 06:23:00 Test Item Value Reference Range Interpretation Comments Glucose Lvl (test code = Glucose Lvl) 93 70-99 [facility] [id number] 06:23:00 Test Item Value Reference Range Interpretation Comments BUN (test code = BUN) 7 7-22 [place] 261021-08-18 06:23:00 Test Item Value Reference Range Interpretation Comments Creatinine Lvl (test code = Creatinine 0.53 0.50-1.40 Lvl) [place] 261021-08-18 06:23:00 Test Item Value Reference Range Interpretation Comments Sodium Lvl (test code = Sodium Lvl) 140 135-145 [place] 261021-08-18 06:23:00 Test Item Value Reference Range Interpretation Comments Potassium Lvl (test code = Potassium 4.0 3.5-5.1 Lvl) [place] [address]-08-18 06:23:00 Test Item Value Reference Range Interpretation Comments Chloride Lvl (test code = Chloride Lvl) 107 95-109 [place] 261021-08-18 06:23:00 Test Item Value Reference Range Interpretation Comments CO2 (test code = CO2) 29 24-32 [place] 261021-08-18 06:23:00 Test Item Value Reference Range Interpretation Comments Calcium Lvl (test code = Calcium Lvl) 8.1 8.5-10.5 [place] [address]-08-18 06:23:00 Test Item Value Reference Range Interpretation Comments Total Protein (test code = Total 7.4 6.4-8.4 Protein) [place] [address]-08-18 06:23:00 Test Item Value Reference Range Interpretation Comments Albumin Lvl (test code = Albumin Lvl) 4.1 3.5-5.0 [place] 261021-08-18 06:23:00 Test Item Value Reference Range Interpretation Comments ALT (test code = ALT) 25 See_Comment [Auto mated message] The system which ge nerated this result transmit aisha reference range : <=65. The reference range was not used to interpr et this result as erin l/abnormal. [place] 261021-08-18 06:23:00 Test Item Value Reference Range Interpretation Comments AST (test code = AST) 26 See_Comment [Auto mated message] The system which ge nerated this result transmit aisha reference range : <=37. The reference range was not used to interpr et this result as erin l/abnormal. [place] [address]-08-18 06:23:00 Test Item Value Reference Range Interpretation Comments Alk Phos (test code = Alk Phos) 83 39-136 [place] 261021-08-18 06:23:00 Test Item Value Reference Range Interpretation Comments Bili Total (test code = Bili Total) 2.4 0.2-1.3 [place] 261021-08-18 06:23:00 Test Item Value Reference Range Interpretation Comments AGAP (test code = AGAP) 8.0 10.0-20.0 [place] 261021-08-18 06:23:00 Test Item Value Reference Range Interpretation Comments B/C Ratio (test code = B/C Ratio) 13 1 6-25 [place] [address]-08-18 06:23:00 Test Item Value Reference Range Interpretation Comments Globulin (test code = Globulin) 3.3 2.7-4.2 [place] 261021-08-18 06:23:00 Test Item Value Reference Range Interpretation Comments A/G Ratio (test code = A/G Ratio) 1.2 1 0.7-1.6 [place] 261021-08-18 06:23:00 Test Item Value Reference Range Interpretation Comments eGFR (test code = eGFR) 151 [place] 234571-08-18 06:23:00 Test Item Value Reference Range Interpretation Comments WBC (test code = WBC) 7.4 3.7-10.4 [place] 234571-08-18 06:23:00 Test Item Value Reference Range Interpretation Comments RBC (test code = RBC) 2.64 4.70-6.10 [place] 234571-08-18 06:23:00 Test Item Value Reference Range Interpretation Comments Hgb (test code = Hgb) 10.1 14.0-18.0 [place] [address]-08-18 06:23:00 Test Item Value Reference Range Interpretation Comments Hct (test code = Hct) 28.0 42.0-54.0 [place] [address]-08-18 06:23:00 Test Item Value Reference Range Interpretation Comments MCV (test code = MCV) 106.2 80.0-94.0 [place] [address]-08-18 06:23:00 Test Item Value Reference Range Interpretation Comments MCH (test code = MCH) 38.4 pg 27.0-31.0 [facility] HospitalUssmaluQDINSMVEXG3696-89-01 06:23:00 Test Item Value Reference Range Interpretation Comments MCHC (test code = MCHC) 36.2 32.0-36.0 [facility] HospitalIjyxlbwRFCLCJHVVA5370-80-50 06:23:00 Test Item Value Reference Range Interpretation Comments RDW (test code = RDW) 17.9 11.5-14.5 [facility] HospitalMsxzhoiKSDXSLPAWE1561-72-20 06:23:00 Test Item Value Reference Range Interpretation Comments Platelet (test code = Platelet) 406 133-450 [facility] HospitalKeegbilXRMYKRLVXH6483-65-55 06:23:00 Test Item Value Reference Range Interpretation Comments MPV (test code = MPV) 7.0 7.4-10.4 [facility] HospitalMjrnldySOQLCYLMYK5685-89-73 06:23:00 Test Item Value Reference Range Interpretation Comments Retic Auto (test code = Retic Auto) 7.5 0.5-1.5 [facility] HospitalPynjhwfJWMQIBFPYX0766-28-35 06:23:00 Test Item Value Reference Range Interpretation Comments Plt Morph (test code = Normal (03/18/21 1:23 Plt Morph) AM) [facility] HospitalXivlmkhOGYVIQOUEF8606-68-75 06:23:00 Test Item Value Reference Range Interpretation Comments Segs (test code = Segs) 39.6 45.0-75.0 [facility] HospitalYqksgsiAZZFRVQJZH3765-38-49 06:23:00 Test Item Value Reference Range Interpretation Comments Lymphocytes (test code = Lymphocytes) 46.2 20.0-40.0 [facility] HospitalMaqdolrUQBUNWCHJP3969-14-72 06:23:00 Test Item Value Reference Range Interpretation Comments Monocytes (test code = Monocytes) 8.7 2.0-12.0 [place] 234571-08-18 06:23:00 Test Item Value Reference Range Interpretation Comments Eosinophils (test code = 3.7 See_Comment [A utomated message] The Eosinophils) system which ge nerated this result tra nsmitted reference range : <=4.0. The reference r duy was not used to int erpret this result as normal/abnormal . [facility] HospitalLurvforJWKXLLQAME6364-88-28 06:23:00 Test Item Value Reference Range Interpretation Comments Basophils (test code = 1.8 See_Comment [Aut omated message] The Basophils) system which ge nerated this result tra nsmitted reference range : <=1.0. The reference r duy was not used to int erpret this result as normal/abnormal . [place] [address]-08-18 06:23:00 Test Item Value Reference Range Interpretation Comments Neutrophils # (test code = Neutrophils 2.9 1.5-8.1 #) [place] [address]-08-18 06:23:00 Test Item Value Reference Range Interpretation Comments Lymphocytes # (test code = Lymphocytes 3.4 1.0-5.5 #) [place] [address]-08-18 06:23:00 Test Item Value Reference Range Interpretation Comments Monocytes # (test code 0.6 See_Comment [Aut omated message] The = Monocytes #) system which generated this result tra nsmitted reference range : <=0.8. The reference r duy was not used to int erpret this result as normal/abnormal . [place] [address]-08-18 06:23:00 Test Item Value Reference Range Interpretation Comments Eosinophils # (test code 0.3 See_Comment [A utomated message] The = Eosinophils #) system whic h generated this result tra nsmitted reference range : <=0.5. The reference r duy was not used to int erpret this result as normal/abnormal . [place] [address]-08-18 06:23:00 Test Item Value Reference Range Interpretation Comments Basophils # (test code 0.1 See_Comment [Aut omated message] The = Basophils #) system which generated this result tra nsmitted reference range : <=0.2. The reference r duy was not used to int erpret this result as normal/abnormal . [place] 234571-08-18 06:23:00 Test Item Value Reference Range Interpretation Comments Anisocyte (test code = 1+ *ABN*(03/18/21 Anisocyte) 1:23 AM) [place] [address]-08-18 06:23:00 Test Item Value Reference Range Interpretation Comments Macrocyte (test code = 1+ *ABN*(03/18/21 Macrocyte) 1:23 AM) [place] [address]-08-18 06:23:00 Test Item Value Reference Range Interpretation Comments Polychrom (test code = Moderate *ABN*(03/18/21 Polychrom) 1:23 AM) [facility]TroukruNUZCPVEBCZ6684-45-19 06:23:00 Test Item Value Reference Range Interpretation Comments Target Cell (test code = Target Cell) Slight [facility] CampusYjrzwbfAWRUBWIYIW8190-39-43 06:23:00 Test Item Value Reference Range Interpretation Comments Sickle Cell (test code Slight *ABN*(03/18/21 = Sickle Cell) 1:23 AM) [facility]CARD[facility] [id number] 06:23:00 Test Item Value Reference Range Interpretation Comments Troponin-I (test code no gt See_Comment [Auto mated message] The = Troponin-I) system which g enerated this result transmit aisha reference range : <=0.40. The reference r duy was not used to interpr et this result as erin l/abnormal. [facility] [id number] 06:23:00 Test Item Value Reference Range Interpretation Comments Glucose Lvl (test code = Glucose Lvl) 93 70-99 [facility] [id number] 06:23:00 Test Item Value Reference Range Interpretation Comments BUN (test code = BUN) 7 7-22 [facility] [id number] 06:23:00 Test Item Value Reference Range Interpretation Comments Creatinine Lvl (test code = Creatinine 0.53 0.50-1.40 Lvl) [facility] [id number] 06:23:00 Test Item Value Reference Range Interpretation Comments Sodium Lvl (test code = Sodium Lvl) 140 135-145 [facility] [id number] 06:23:00 Test Item Value Reference Range Interpretation Comments Potassium Lvl (test code = Potassium 4.0 3.5-5.1 Lvl) [facility] [id number] 06:23:00 Test Item Value Reference Range Interpretation Comments Chloride Lvl (test code = Chloride Lvl) 107 95-109 [facility] [id number] 06:23:00 Test Item Value Reference Range Interpretation Comments CO2 (test code = CO2) 29 24-32 [facility] [id number] 06:23:00 Test Item Value Reference Range Interpretation Comments Calcium Lvl (test code = Calcium Lvl) 8.1 8.5-10.5 [facility] [id number] 06:23:00 Test Item Value Reference Range Interpretation Comments Total Protein (test code = Total 7.4 6.4-8.4 Protein) [facility] [id number] 06:23:00 Test Item Value Reference Range Interpretation Comments Albumin Lvl (test code = Albumin Lvl) 4.1 3.5-5.0 [facility] [id number] 06:23:00 Test Item Value Reference Range Interpretation Comments ALT (test code = ALT) 25 See_Comment [Auto mated message] The system which ge nerated this result transmit aisha reference range : <=65. The reference range was not used to interpr et this result as erin l/abnormal. [facility] [id number] 06:23:00 Test Item Value Reference Range Interpretation Comments AST (test code = AST) 26 See_Comment [Auto mated message] The system which ge nerated this result transmit aisha reference range : <=37. The reference range was not used to interpr et this result as erin l/abnormal. [facility] [id number] 06:23:00 Test Item Value Reference Range Interpretation Comments Alk Phos (test code = Alk Phos) 83 39-136 [facility] 06:23:00 Test Item Value Reference Range Interpretation Comments Bili Total (test code = Bili Total) 2.4 0.2-1.3 [facility] [id number] 06:23:00 Test Item Value Reference Range Interpretation Comments AGAP (test code = AGAP) 8.0 10.0-20.0 [facility] [id number] 06:23:00 Test Item Value Reference Range Interpretation Comments B/C Ratio (test code = B/C Ratio) 13 1 6-25 [facility]2021-08-18 06:23:00 Test Item Value Reference Range Interpretation Comments Globulin (test code = Globulin) 3.3 2.7-4.2 [facility] [id number] 06:23:00 Test Item Value Reference Range Interpretation Comments A/G Ratio (test code = A/G Ratio) 1.2 1 0.7-1.6 [facility] [id number] 06:23:00 Test Item Value Reference Range Interpretation Comments eGFR (test code = eGFR) 151 [facility] HospitalBojqywnOJYAOZKTVJ9019-73-45 06:23:00 Test Item Value Reference Range Interpretation Comments WBC (test code = WBC) 7.4 3.7-10.4 [facility] HospitalTjnsmneBKUDDDVTJT4494-58-85 06:23:00 Test Item Value Reference Range Interpretation Comments RBC (test code = RBC) 2.64 4.70-6.10 [facility] HospitalFazwmgkPVJOZBEHUI1351-80-70 06:23:00 Test Item Value Reference Range Interpretation Comments Hgb (test code = Hgb) 10.1 14.0-18.0 [facility] HospitalCbwmnvxFPGBHWTSGF9652-48-49 06:23:00 Test Item Value Reference Range Interpretation Comments Hct (test code = Hct) 28.0 42.0-54.0 [facility] HospitalYlpebtmMQPRNUTANJ6178-56-75 06:23:00 Test Item Value Reference Range Interpretation Comments MCV (test code = MCV) 106.2 80.0-94.0 [facility] HospitalOquoqrxEFDBAICEWX4527-30-85 06:23:00 Test Item Value Reference Range Interpretation Comments MCH (test code = MCH) 38.4 pg 27.0-31.0 [facility] HospitalAmykhxgYVXEQJWMRP0879-23-92 06:23:00 Test Item Value Reference Range Interpretation Comments MCHC (test code = MCHC) 36.2 32.0-36.0 [facility] HospitalZexscdaOOCXIKIHBV6635-14-86 06:23:00 Test Item Value Reference Range Interpretation Comments RDW (test code = RDW) 17.9 11.5-14.5 [facility] HospitalKpzdykdYHKIYDFAUK1914-93-86 06:23:00 Test Item Value Reference Range Interpretation Comments Platelet (test code = Platelet) 406 133-450 [facility] HospitalDvyopymJIRKTKNTKA2345-01-41 06:23:00 Test Item Value Reference Range Interpretation Comments MPV (test code = MPV) 7.0 7.4-10.4 [facility] HospitalTnsciflVCGAVLULMG0089-20-56 06:23:00 Test Item Value Reference Range Interpretation Comments Retic Auto (test code = Retic Auto) 7.5 0.5-1.5 [facility] HospitalDmkvpasVGJZUACLYL4325-76-10 06:23:00 Test Item Value Reference Range Interpretation Comments Plt Morph (test code = Normal (03/18/21 1:23 Plt Morph) AM) [place] 234571-08-18 06:23:00 Test Item Value Reference Range Interpretation Comments Segs (test code = Segs) 39.6 45.0-75.0 [place] [address]-08-18 06:23:00 Test Item Value Reference Range Interpretation Comments Lymphocytes (test code = Lymphocytes) 46.2 20.0-40.0 [place] [address]-08-18 06:23:00 Test Item Value Reference Range Interpretation Comments Monocytes (test code = Monocytes) 8.7 2.0-12.0 [address]08-18 06:23:00 Test Item Value Reference Range Interpretation Comments Eosinophils (test code = 3.7 See_Comment [A utomated message] The Eosinophils) system which ge nerated this result tra nsmitted reference range : <=4.0. The reference r duy was not used to int erpret this result as normal/abnormal . [address]08-18 06:23:00 Test Item Value Reference Range Interpretation Comments Basophils (test code = 1.8 See_Comment [Aut omated message] The Basophils) system which ge nerated this result tra nsmitted reference range : <=1.0. The reference r duy was not used to int erpret this result as normal/abnormal . [address]08-18 06:23:00 Test Item Value Reference Range Interpretation Comments Neutrophils # (test code = Neutrophils 2.9 1.5-8.1 #) [place] 20034-08-18 06:23:00 Test Item Value Reference Range Interpretation Comments Lymphocytes # (test code = Lymphocytes 3.4 1.0-5.5 #) [address]08-18 06:23:00 Test Item Value Reference Range Interpretation Comments Monocytes # (test code 0.6 See_Comment [Aut omated message] The = Monocytes #) system which generated this result tra nsmitted reference range : <=0.8. The reference r duy was not used to int erpret this result as normal/abnormal . [place] 20034-08-18 06:23:00 Test Item Value Reference Range Interpretation Comments Eosinophils # (test code 0.3 See_Comment [A utomated message] The = Eosinophils #) system whic h generated this result tra nsmitted reference range : <=0.5. The reference r duy was not used to int erpret this result as normal/abnormal . [facility]yt[facility]xc[facility]AV[facility]56[facility]58-41 06:23:00 Test Item Value Reference Range Interpretation Comments Basophils # (test code 0.1 See_Comment [Aut omated message] The = Basophils #) system which generated this result tra nsmitted reference range : <=0.2. The reference r duy was not used to int erpret this result as normal/abnormal . [facility]KwmvebqMHAORYFTTG4939-51-35 06:23:00 Test Item Value Reference Range Interpretation Comments Anisocyte (test code = 1+ *ABN*(03/18/21 Anisocyte) 1:23 AM) [facility] HospitalYrgvytrPWPVIGFZKJ9505-06-40 06:23:00 Test Item Value Reference Range Interpretation Comments Macrocyte (test code = 1+ *ABN*(03/18/21 Macrocyte) 1:23 AM) [facility] HospitalGiaxociOTAHVTVYCV8829-15-21 06:23:00 Test Item Value Reference Range Interpretation Comments Polychrom (test code = Moderate *ABN*(03/18/21 Polychrom) 1:23 AM) [facility] HospitalWmnwdjjSPXZJQHBVL9258-33-75 06:23:00 Test Item Value Reference Range Interpretation Comments Target Cell (test code = Target Cell) Slight [facility] HospitalFbrpbhdMWVKXVMXKS8077-35-27 06:23:00 Test Item Value Reference Range Interpretation Comments Sickle Cell (test code Slight *ABN*(03/18/21 = Sickle Cell) 1:23 AM) [facility] Prvfwvheukf0127-25-40 15:11:00 Test Item Value Reference Range Interpretation Comments WBC, UA (test code None seen See_Comment [Automat ed = 5821-4) message] The system which generated this result transmit aisha reference range : 0 - 5 /hpf. The reference range was not used to interpret this result as normal/abnormal . RBC, UA (test code None seen See_Comment [Automat ed = 95388-5) message] The system which generated this result [...] code = None seen None seen /lpf 99605-2) Bacteria, UA (test None seen None seen/Few code = 5769-5) JACQUI (test code = Performed at: ) [facility] [address] [id number] Director: Kip Aguilera MD, Phone: [phone] [facility], [facility]TE, WITH REFLEX TO [id number] 15:11:00 Test Item Value Reference Range Interpretation Comments Specific gravity, 1.005-1.030 urine (test code = 2965-2) pH, urine (test 5.0-7.5 code = 5803-2) Color, UA (test Yellow Yellow code = 5778-6) Appearance (test Clear Clear code = 5767-9) WBC esterase, Negative Negative urine (test code = 5799-2) Protein, UA (test Trace Negative/Trace code = 79932-9) Glucose, urine Negative Negative (test code = 2349-9) Ketones, UA (test Negative Negative code = 2514-8) Occult blood, Negative Negative urine (test code = 5794-3) Bilirubin, UA Negative Negative (test code = 5770-3) Urobilinogen, UA 1.0 mg/dL 0.2-1.0 (test code = 24805-5) Nitrite, UA (test Negative Negative code = 5802-4) Microscopic See below: Microscopic was examination (test indicated and was code = 51088-6) performed. Urinalysis reflex Comment This speci men will (test code = 2386) not refle x to a Urine Culture. JACQUI (test code = Performed at: ) [facility] [address] [place], [place] [id number] Director: Kip Aguilera MD, Phone: [phone] Comment: A duplicate report has been generated due to demographic updates. [facility][] CMP [id number] 00:00:00 Test Item Value Reference Range Interpretation Comments Glucose (test code = 2345-7) 86 mg/dL 65-99 BUN (test code = 3094-0) 7 mg/dL 6-20 Creatinine; Below Low 0.51 mg/dL 0.76-1.27 Threshold (test code = 2160-0) eGFR If NonAfrcn Am (test code 154 mL/min/1.7 >59 = 46876-5) eGFR If Africn Am (test code = 178 mL/min/1.7 >59 00909-7) BUN/Creatinine Ratio (test 14 - code = 3097-3) Sodium, Serum (test code = 138 mmol/L 343-117 6546-2) Potassium (test code = 2823-3) 4.7 mmol/L 3.5-5.2 Chloride (test code = 2075-0) 102 mmol/L 96-106 Carbon Dioxide, Total (test 20 mmol/L 20-29 code = 8-9) Calcium (test code = 62700-4) 9.2 mg/dL 8.7-10.2 Protein, Total (test code = 7.3 g/dL 6.0-8.5 2885-2) Albumin (test code = 1751-7) 4.9 g/dL 4.1-5.2 Globulin, Total (test code = 2.4 g/dL 1.5-4.5 50423-5) A/G Ratio (test code = 1759-0) 2.0 1.2-2.2 Bilirubin, Total; Above High 2.9 mg/dL 0.0-1.2 Threshold (test code = 1975-2) Alkaline Phosphatase (test 102 {IU/L} 39-117 code = 6768-6) AST (SGOT) (test code = 26 {IU/L} 0-40 1920-8) ALT (SGPT) (test code = 19 {IU/L} 0-44 1742-6) [facility][QL] [id number] 00:00:00 Test Item Value Reference Range Interpretation Comments LDH; Above High Threshold (test 421 {IU/L} 121-224 code = 2532-0) [facility][QL] VITAMIN D, 25-HYDROXY, LC/MS/[id number] 00:00:00 Test Item Value Reference Range Interpretation Comments Vitamin D, 34.2 ng/mL 30.0-100.0 Vitamin D defic iency has 25-Hydroxy (test been define d by the code = 40029-6) [place] [employer] and an Endocrine So [facility] practice guidel ine as alevel of serum 25-OH vitamin D less than 20 ng/mL (1,2).The Endocrine Society went on to further define vitamin Dinsufficiency as a level between 21 and 29 ng/mL (2).1. IOM ([facility] of Medicine). 2010 . Dietary reference intak es for calcium and D. Marcos [place]: The [employer] .2. Bradley MF, Tatum PAYAN, Faraz rutledge BLANCHARD, et al. Evaluation, treatment, and prevention of vitamin D de ficiency: an Endocrine So [facility] clinical practi ce guideline. JCEM . 2010; 96(7):1911 -30. [facility][QL] [id number] 00:00:00 Test Item Value Reference Range Interpretation Comments Ferritin, Serum; Above High 1684 ng/mL 30-400 Threshold (test code = 2276-4) [facility][QL] CBC (INCLUDES DIFF/PLT)2020-10-24 00:00:00 Test Item [...] Immature See Comment Granulocytes (test code = 21029-9) Immature Grans See Comment (Abs) (test code = 88878-9) NRBC; Above High 10 % 0-0 Threshold (test code = 67013-8) Hematology Note: Manual differen tial was Comments: (test performed. code = 53668-9) [facility][QL] RETICULOCYTE [id number] 00:00:00 Test Item Value Reference Range Interpretation Comments Reticulocyte Count; Above 7.4 % 0.6-2.6 Verified by repeat High Threshold (test code an alysis = 24496-2) [facility][L] Prot+CreatU (Random)2020-10-24 00:00:00 Test Item Value Reference Range Interpretation Comments Creatinine, Urine (test code 65.6 mg/dL Not Estab. = 2161-8) Protein,Total,Urine (test 18.4 mg/dL Not Estab. code = 2888-6) Protein/Creat Ratio (test 280 {mg/g creat} 0-200 code = Protein/Creat Ratio) [facility][L] Hemoglobinopathy Fractionation [id number] 00:00:00 Test Item Value Reference Range Interpretation Comments Hgb F (test code = 12.0 % 0.0-2.0 Hgb F) Hgb A (test code = 7.9 % 96.4-98.8 Hgb A) Hgb A2 (test code = 2.7 % 1.8-3.2 Hgb A2) Hgb S (test code = 77.4 % See_Comment [Automat ed message] Hgb S) The system [employer] generated this result transmitted ref erence range: [...] transfusion of a homozygous Hgb S patient. [facility]iciansTransthoracic Echocardiogram Complete, (w Contrast, Strain and 3D if needed)2020-09-03 16:42:05 Test Item Value Reference Range Interpretation Comments Velocity Ratio 0.80 m/s (V1/V2) (test code = 4689) IVS,d (test code = 1.31 cm 8022192550) EF (test code = 61.46 % 2529488704) LVPWD,d (test code = 1.23 cm 1515906271) AoV Mean PG (test mmHg code = 0509432268) AV LVOT peak gradient mmHg (test code = 8983029685) MV valve area p 1/2 4.38 cm2 method (test code = 3817794969) E/A ratio (test code = 5076990589) E wave decelartion msec time (test code = 8456120298) LVOT Diam,S (test 2.41 cm code = 3237964895) LVOT area (test code 4.56 cm2 = 3582806022) LVOT Vmax (test code 1.36 m/s = 2292343108) LVOT VTI (test code = 0.26 m 6118685823) AoV Peak PG (test mmHg code = 0100107444) MV Peak E Johnnie (test 1.12 m/s code = 3307525554) MV stenosis pressure 50.26 ms 1/2 time (test code = 2295430250) MV Peak A Johnnie (test 0.51 m/s code = 9988199863) LV Vol,s A2C (test 66.78 mL code = 3689285774) LV Vol,d A2C (test 183.45 mL code = 8708243157) LA Volume Index (test 30.27 mL/m2 code = 1435131866) AoV Area, Vmax (test 3.63 cm2 code = 7287477771) AoV Area, VTI (test 3.94 cm2 code = 8168125219) AoV Vmax (test code = 1.71 m/s 7032678921) LV,d (test code = 4.87 cm 4142697397) LV,s (test code = 3.26 cm 3404605854) LV Vol,d A4C (test 149.73 ml code = 1247636157) LV Vol,s A4C (test 62.08 ml code = 1077142655) TR Vpeak (test code = 2.84 mm/s 0647560636) MV E A ratio (test code = 6928778098) RA pressure (test mmHg code = 0145684842) TR pk grad (test code mmHg = 2624400252) MR peak grad (test mmHg code = 4201144480) LA Vol 4C (test code 42.00 ml = 5680088331) RVSP (test code = mmHg 5444068496) LV SYS VOL (test code 42.90 ml = 6387830339) LV MARION VOL (test 111.30 ml code = 8810187520) LA diam s (test code 3.60 cm = 4815529211) LA Vol MOD A4C (test 42.28 ml code = 6046064372) LV SV Teich 2D (test 68.40 ml code = 5423944852) LVOT SI (test code = 62.47 ml/m2 7740621805) AoV Cusp sep (test code = 4298296399) Aortic Root (test 3.47 cm code = 5255051111) AoV Vmn (test code = 8000031421) IVS s 2D (test code = 1671764182) LA Ao Ratio Mmode (test code = 3284841509) D E excurs (test code = 0058523382) E f slope (test code = 0899274099) E prime lat (test code = 9875401919) E marisela sept (test code = 2200697036) PV acc T slope (test code = 0269844810) PV AT (test code = msec 9694505158) DRAPER BP EF (test 60.00 % code = 4992985496) LA VOL 2C (test code 59.00 ml = 6742642444) AoV VTI (test code = 0.30 m 3674062867) LV EF,A2C (test code 63.60 % = 8664357241) LV EF,A4C (test code 58.54 % = 8853336274) LV EF,BP (test code = 60.49 % 9557700998) [place],d A2C (test 9.36 cm code = 5102623139) [place],d A4C (test 9.61 cm code = 0506348331) [place],s A2C (test 7.53 cm code = 2282514664) [place],s A4C (test 8.04 cm code = 6681035239) LV SV,A2C (test code 116.68 % = 7057067432) LV SV,A4C (test code 87.65 % = 4919727668) LV Vol,d BP (test 167.49 ml code = 7734726396) LV Vol,s BP (test 66.18 nl code = 3518864813) MR Vmax (test code = 4.40 m/s 5553317739) LVOT Vmn (test code = 9586036488) Pt Size (test code = 8694178640) Pt Wt (test code = 5959658074) LVOT mean grad (test mmHg code = 8782348488) LVPW s PLAX (test 1.64 cm code = 4828027064) MV Decel slope (test 8.87 m/s2 code = 7312081938) JACQUI (test code = JACQUI) Left ventricular [...] is normal.Study Quality Study quality is good. [facility] (C[facility]-19) RNA [Presence] in Respiratory specimen by ALESSIO with probe [id number] 22:20:20 Test Item Value Reference Range Interpretation Comments SARS-CoV-2 (COVID-19) RNA Not detected Not-Detected [Presence] in Respiratory specimen by ALESSIO with probe detection (test code = 49729-1) [facility] [Presence] in Respiratory specimen by ALESSIO with probe [id number] 01:46:48 Test Item Value Reference Range Interpretation Comments SARS-CoV-2 (COVID-19) RNA Not detected Not-Detected [Presence] in Respiratory specimen by ALESSIO with probe detection (test code = 10311-2) [facility][QL] CMP [id number] 00:00:00 Test Item Value Reference Range Interpretation Comments Glucose (test code = 2345-7) 75 mg/dL 65-99 BUN (test code = 3094-0) 7 mg/dL 6-20 Creatinine; Below Low 0.51 mg/dL 0.76-1.27 Threshold (test code = 2160-0) eGFR If NonAfricn Am (test 155 mL/min/1.7 >59 code = 07754-1) eGFR If Africn Am (test code = 179 mL/min/1.7 >59 56831-8) BUN/Creatinine Ratio (test 14 9-20 code = 3097-3) Sodium, Serum (test code = 140 mmol/L 535-827 6980-2) Potassium (test code = 2823-3) 4.8 mmol/L 3.5-5.2 Chloride (test code = 2075-0) 98 mmol/L 96-106 Carbon Dioxide, Total (test 20 mmol/L 20-29 code = 8-9) Calcium (test code = 58725-6) 9.7 mg/dL 8.7-10.2 Protein, Total (test code = 7.8 g/dL 6.0-8.5 2885-2) Albumin (test code = 1751-7) 5.0 g/dL 4.1-5.2 Globalulin, Total (test code = 2.8 g/dL 1.5-4.5 52777-9) A/G Ratio (test code = 1759-0) 1.8 1.2-2.2 Bilirubin, Total; Above High 2.0 mg/dL 0.0-1.2 Threshold (test code = 1975-2) Alkaline Phosphatase; Above 121 {IU/L} 39-117 High Threshold (test code = 6768-6) AST (SGOT) (test code = 24 {IU/L} 0-40 1920-8) ALT (SGPT) (test code = 24 {IU/L} 0-44 1742-6) [facility][QL] [id number] 00:00:00 Test Item Value Reference Range Interpretation Comments Ferritin, Serum; Above High 1605 ng/mL 30-400 Threshold (test code = 2276-4) [facility][QL] VITAMIN D, 25-HYDROXY, LC/MS/[id number] 00:00:00 Test Item Value Reference Range Interpretation Comments Vitamin D, 22.4 ng/mL 30.0-100.0 Vitamin D defic iency has 25-Hydroxy; Below been defin ed by the Low Threshold (test [facility] of[facility] and code = 56180-3) an Endocrine Society practice guidel ine as alevel of serum 25-OH vitamin D less than 20 ng/mL (1,2).The Endocrine Socie ty went on to further d efine vitamin Dinsuff iciency as a level betw een 21 and 29 ng/mL (2 ).1. IOM ([place] of M edicine). 2010. Dietary r eference intakes for josé antonio mark and D. Marcos D C: The [employer] s Press.2. Bradley MF, Tatum PAYAN, Faraz BLANCHARD, et al. Evaluation, treatment, and prevention of v itamin D deficiency: an Endocrine Society clinica l practice guidel ine. JCEM. 2010; 96(7):1911-30. [facility][QL] CBC (INCLUDES DIFF/PLT)2020-04-25 00:00:00 Test Item [...] % Not Estab. Granulocytes (test code = 91896-5) Immature Grans 0.0 0.0-0.1 (Abs) (test code = {x10E3/uL} 46152-3) NRBC; Above High 1 % 0-0 Threshold (test code = 04028-9) Hematology Note: Verified by ross roscopic Comments: (test examination. code = 18394-6) [facility][L] Prot+CreatU (Random)2020-04-25 00:00:00 Test Item Value Reference Range Interpretation Comments Creatinine, Urine (test code 107.6 mg/dL Not Estab. = 2161-8) Protein,Total,Urine (test 31.9 mg/dL Not Estab. code = 2888-6) Protein/Creat Ratio (test 296 {mg/g creat} 0-200 code = Protein/Creat Ratio) [facility][L] Hgb Frac. [id number] 00:00:00 Test Item Value Reference Range Interpretation [...] 4.0 % 1.8-3.2 Threshold (test code = 46901-0) Hgb Variant (test code 0.0 % >0.0 = 42907-2) Interpretation (test Note: Hemoglo bin pattern and code = 44859-1) concentratio ns are consistent with transfusionof a homozygous Hgb S patient. MD TckhhsbqwkPUXD-XhK-3 (COVID-19) RNA [Presence] in Respiratory specimen by ALESSIO with probe mrjzssebv4050-77-54 00:41:57 Test Item Value Reference Range Interpretation Comments SARS-CoV-2 (COVID-19) RNA Not detected Not-Detected [Presence] in Respiratory specimen by ALESSIO with probe detection (test code = 58112-4) [facility][QL] CBC (INCLUDES DIFF/PLT)2020-01-11 00:00:00 Test Item Value [...] (test 1 % Not Estab. code = 28078-3) Immature Grans (Abs) (test 0.1 {x10E3/uL} 0.0-0.1 code = 10398-9) NRBC; Above High Threshold 2 % 0-0 (test code = 77708-5) Hematology Comments: (test See Comment code = 74452-8) [facility][QL] RETICULOCYTE [id number] 00:00:00 Test Item Value Reference Range Interpretation Comments Reticulocyte Count; Above High 11.9 % 0.6-2.6 Threshold (test code = 52044-6) [facility][QL] CMP [id number] 00:00:00 Test Item Value Reference Range Interpretation Comments Glucose; Below Low Threshold 62 mg/dL 65-99 (test code = 2345-7) BUN (test code = 3094-0) 7 mg/dL 6-20 Creatinine; Below Low 0.55 mg/dL 0.76-1.27 Threshold (test code = 2160-0) eGFR If NonAfricn Am (test 150 mL/min/1.7 >59 code = 43993-0) eGFR If Africn Am (test code = 173 mL/min/1.7 >59 05837-3) BUN/Creatinine Ratio (test 13 9-20 code = 3097-3) Sodium, Serum (test code = 138 mmol/L 325-924 1114-2) Potassium; Above High 5.8 mmol/L 3.5-5.2 Threshold (test code = 2823-3) Chloride (test code = 2075-0) 99 mmol/L 96-106 Carbon Dioxide, Total (test 21 mmol/L 20-29 code = 8-9) Calcium (test code = 99546-8) 9.7 mg/dL 8.7-10.2 Protein, Total (test code = 7.9 g/dL 6.0-8.5 2885-2) Albumin (test code = 1751-7) 5.0 g/dL 4.1-5.2 Globalulin, Total (test code = 2.9 g/dL 1.5-4.5 81340-5) A/G Ratio (test code = 1759-0) 1.7 1.2-2.2 Bilirubin, Total; Above High 2.3 mg/dL 0.0-1.2 Threshold (test code = 1974-2) Alkaline Phosphatase (test 105 {IU/L} 39-117 code = 6768-6) AST (test code = 1920-8) 24 {IU/L} 0-40 ALT (test code = 1742-6) 21 {IU/L} 0-44 [facility][QL] [id number] 00:00:00 Test Item Value Reference Range Interpretation Comments LDH; Above High Threshold (test 369 {IU/L} 121-224 code = 2532-0) [facility][QL] BILIRUBIN, [id number] 00:00:00 Test Item Value Reference Range Interpretation Comments Bilirubin, Direct; Above High 0.46 mg/dL 0.00-0.40 Threshold (test code = 1967-7) [facility][QL] VITAMIN D, 25-HYDROXY, LC/MS/[id number] 00:00:00 Test Item Value Reference Range Interpretation Comments Vitamin D, 26.9 ng/mL 30.0-100.0 Vitamin D defic iency has 25-Hydroxy; Below been defin ed by the Low Threshold (test [facility] of[facility]icine and code = 28152-3) an Endocrine Society practice guidel ine as alevel of serum 25-OH vitamin D less than 20 ng/mL (1,2).The Endocrine Socie ty went on to further d efine vitamin Dinsuff iciency as a level betw een 21 and 29 ng/mL (2 ).1. IOM ([place] [employer] M edicine). 2010. Dietary r eference intakes for josé antonio cium and D. Marcos D C: The [employer] ies Press.2. Bradley BENAVIDEZ, Tatum PAYAN, Faraz rutledge BLANCHARD, et al. Evaluation, treatment, and prevention of v itamin D deficiency: an Endocrine Society clinica l practice guidel ine. JCEM. 2010; 96(7):1911-30. [facility][QL] [id number] 00:00:00 Test Item Value Reference Range Interpretation Comments Ferritin, Serum; Above High 1457 ng/mL 30-400 Threshold (test code = 2276-4) [facility][QL] MICROALBUMIN, RANDOM URINE (W/CREATININE)2020-01-11 00:00:00 Test Item Value Reference Range Interpretation Comments Creatinine, Urine 75.9 mg/dL Not Estab. (test code = 2161-8) Microalbumin, 78.0 ug/mL Not Estab. Urine (test code = 85469-4) Microalb/Creat 103 {mg/g creat} 0-29 Normal: 0 - 29 Ratio (test code Moderately increased: = Microalb/Creat 30 - 300 Se verely Ratio) increased: >300 Please note reference inter shola change [facility][L] Hgb Frac. [id number] 00:00:00 Test Item Value Reference Range Interpretation [...] 4.1 % 1.8-3.2 Threshold (test code = 65241-6) Hgb Variant (test code 0.0 % >0.0 = 66160-5) Interpretation (test Note: Hemoglo bin pattern and code = 28055-4) concentratio ns are consistent withhomozygous sickle cell [...] A2 interpretation ranges have been adjus aisha. [facility]iciansCARDIAC [id number] 03:39:00 Test Item Value Reference Range Interpretation Comments Troponin-I (test code no gt See_Comment [Auto mated message] The = Troponin-I) system which g enerated this result transmit aisha reference range : <=0.40. The reference r duy was not used to interpr et this result as erin l/abnormal. [facility]PoctcahYZWOOAWTMCRV9296-09-83 03:39:00 Test Item Value Reference Range Interpretation Comments AGAP (test code = AGAP) 17.7 10.0-20.0 [facility] HospitalOfiuhwtLBVITCLHVDMF4880-66-74 03:39:00 Test Item Value Reference Range Interpretation Comments B/C Ratio (test code = B/C Ratio) 11 1 6-25 [facility] HospitalWlglvvmVBJFDFJTLQTM2307-37-99 03:39:00 Test Item Value Reference Range Interpretation Comments Globulin (test code = Globulin) 3.9 2.7-4.2 [facility] HospitalAjanwxfHYGJXLSPWUDZ1625-86-04 03:39:00 Test Item Value Reference Range Interpretation Comments A/G Ratio (test code = A/G Ratio) 1.1 1 0.7-1.6 [facility] HospitalDxiwqdaTWOJICCNNARW9925-82-14 03:39:00 Test Item Value Reference Range Interpretation Comments Glucose Lvl (test code = Glucose Lvl) 100 70-99 [facility] HospitalCbifeduNRWRACFHPKBH1388-77-33 03:39:00 Test Item Value Reference Range Interpretation Comments BUN (test code = BUN) 6 7-22 [facility] HospitalKtoekkuHIXRIMJCJWLA4707-50-48 03:39:00 Test Item Value Reference Range Interpretation Comments Creatinine Lvl (test code = Creatinine 0.55 0.50-1.40 Lvl) [facility] HospitalUyaucquXRGMDBIPFRPA7882-71-59 03:39:00 Test Item Value Reference Range Interpretation Comments Sodium Lvl (test code = Sodium Lvl) 140 135-145 [facility] HospitalUukwdhmWXNMGGWNBWRA8145-75-12 03:39:00 Test Item Value Reference Range Interpretation Comments Potassium Lvl (test code = Potassium 3.7 3.5-5.1 Lvl) [facility] HospitalSjyyfdcVTUCRRWUUAPL9325-81-58 03:39:00 Test Item Value Reference Range Interpretation Comments Chloride Lvl (test code = Chloride Lvl) 103 95-109 [facility] HospitalBtzessfALPVFEKRBALB4949-41-16 03:39:00 Test Item Value Reference Range Interpretation Comments CO2 (test code = CO2) 23 24-32 [facility] HospitalAfybtmaPDVYMNMVOIKN0333-78-55 03:39:00 Test Item Value Reference Range Interpretation Comments Calcium Lvl (test code = Calcium Lvl) 9.0 8.5-10.5 [facility] HospitalSsnfqfuEEWMBBEIDWOS8539-48-26 03:39:00 Test Item Value Reference Range Interpretation Comments eGFR (test code = eGFR) 173 [facility] HospitalBrbpbboIFFOORVSBQHU4613-98-63 03:39:00 Test Item Value Reference Range Interpretation Comments Total Protein (test code = Total 8.3 6.4-8.4 Protein) [facility] HospitalJqwzvujRFYZHFAPBLQT6358-75-78 03:39:00 Test Item Value Reference Range Interpretation Comments Albumin Lvl (test code = Albumin Lvl) 4.4 3.5-5.0 [facility] HospitalVjgxdicMCAKCOVJBUAW7120-32-00 03:39:00 Test Item Value Reference Range Interpretation Comments ALT (test code = ALT) 36 See_Comment [Auto mated message] The system which ge nerated this result transmit aisha reference range : <=65. The reference range was not used to interpr et this result as erin l/abnormal. [facility] HospitalLmlmxbdLEZFBPDCULDD5427-16-22 03:39:00 Test Item Value Reference Range Interpretation Comments AST (test code = AST) 34 See_Comment [Auto mated message] The system which ge nerated this result transmit aisha reference range : <=37. The reference range was not used to interpr et this result as erin l/abnormal. [facility] HospitalQyxcvsjKWYCSYKMPBYQ9969-06-51 03:39:00 Test Item Value Reference Range Interpretation Comments Alk Phos (test code = Alk Phos) 159 39-136 [facility] HospitalIuodqvoRTNGQBMWLFBY5831-21-94 03:39:00 Test Item Value Reference Range Interpretation Comments Bili Total (test code = Bili Total) 3.5 0.2-1.3 [facility] CampusOyxsnkjYEGKZFNJMT4757-52-80 03:39:00 Test Item Value Reference Range Interpretation Comments Retic Auto (test code = Retic Auto) 7.5 0.5-1.5 [facility]annCARD[facility]AC DAGZJFZ8731-30-53 03:39:00 Test Item Value Reference Range Interpretation Comments Troponin-I (test code no gt See_Comment [Auto mated message] The = Troponin-I) system which g enerated this result transmit aisha reference range : <=0.40. The reference r duy was not used to interpr et this result as erin l/abnormal. [facility] HospitalFxvufoeJCTQNWRNOFOX0982-90-94 03:39:00 Test Item Value Reference Range Interpretation Comments AGAP (test code = AGAP) 17.7 10.0-20.0 [facility] HospitalEseykciUHXTOHFEGAOX6588-68-67 03:39:00 Test Item Value Reference Range Interpretation Comments B/C Ratio (test code = B/C Ratio) 11 1 6-25 [facility]UbcmntaESZZYZGBODTM4052-53-84 03:39:00 Test Item Value Reference Range Interpretation Comments Globulin (test code = Globulin) 3.9 2.7-4.2 [facility] HospitalEwtqvabTCNTTCETJPLO3317-77-06 03:39:00 Test Item Value Reference Range Interpretation Comments A/G Ratio (test code = A/G Ratio) 1.1 1 0.7-1.6 [facility] HospitalQxdtijzFRYTDUYDCCKG7569-79-89 03:39:00 Test Item Value Reference Range Interpretation Comments Glucose Lvl (test code = Glucose Lvl) 100 70-99 [facility] HospitalNeefrfoXGBYGUHDSMYA7408-72-53 03:39:00 Test Item Value Reference Range Interpretation Comments BUN (test code = BUN) 6 7-22 [facility] HospitalTyxnwahTYWGWSTBEUSP2624-77-30 03:39:00 Test Item Value Reference Range Interpretation Comments Creatinine Lvl (test code = Creatinine 0.55 0.50-1.40 Lvl) [facility] HospitalAecoxqqMLAOKUPRTLBH0830-43-84 03:39:00 Test Item Value Reference Range Interpretation Comments Sodium Lvl (test code = Sodium Lvl) 140 135-145 [facility] HospitalVngcaioOXBQNNNLLYKE9967-35-21 03:39:00 Test Item Value Reference Range Interpretation Comments Potassium Lvl (test code = Potassium 3.7 3.5-5.1 Lvl) [facility] HospitalXxlfpniJEEZTNRSSXYE7123-64-04 03:39:00 Test Item Value Reference Range Interpretation Comments Chloride Lvl (test code = Chloride Lvl) 103 95-109 [facility] HospitalDnwownxYUOSYXZZTXSZ3487-20-30 03:39:00 Test Item Value Reference Range Interpretation Comments CO2 (test code = CO2) 23 24-32 [facility] HospitalLmpaetvPWKQMWCLPGMS0991-38-71 03:39:00 Test Item Value Reference Range Interpretation Comments Calcium Lvl (test code = Calcium Lvl) 9.0 8.5-10.5 [facility] HospitalDtoxywmAZYZHKPKZSMR9612-00-06 03:39:00 Test Item Value Reference Range Interpretation Comments eGFR (test code = eGFR) 173 [facility] HospitalGqaavyxJYGQVOJWKNDH9499-27-47 03:39:00 Test Item Value Reference Range Interpretation Comments Total Protein (test code = Total 8.3 6.4-8.4 Protein) [facility] HospitalDkqlutkSPGPTXGGKQDE2883-19-13 03:39:00 Test Item Value Reference Range Interpretation Comments Albumin Lvl (test code = Albumin Lvl) 4.4 3.5-5.0 [facility] HospitalYwlffxjTNKEHPWZVKBK8572-75-24 03:39:00 Test Item Value Reference Range Interpretation Comments ALT (test code = ALT) 36 See_Comment [Auto mated message] The system which ge nerated this result transmit aisha reference range : <=65. The reference range was not used to interpr et this result as erin l/abnormal. [facility] HospitalBqnahtcZNMTYMWEQPNH2789-22-33 03:39:00 Test Item Value Reference Range Interpretation Comments AST (test code = AST) 34 See_Comment [Auto mated message] The system which ge nerated this result transmit aisha reference range : <=37. The reference range was not used to interpr et this result as erin l/abnormal. [facility] HospitalXzfmyeeXFQYHSDOLXIZ5413-57-32 03:39:00 Test Item Value Reference Range Interpretation Comments Alk Phos (test code = Alk Phos) 159 39-136 [facility] HospitalCrdnjlkWYGHWAKBZNIN0750-83-64 03:39:00 Test Item Value Reference Range Interpretation Comments Bili Total (test code = Bili Total) 3.5 0.2-1.3 [facility] CampusXqluxziOVDALYWPFM6850-67-36 03:39:00 Test Item Value Reference Range Interpretation Comments Retic Auto (test code = Retic Auto) 7.5 0.5-1.5 [facility]annCARDIAC IFTKYMA1347-34-23 03:39:00 Test Item Value Reference Range Interpretation Comments Troponin-I (test code no gt See_Comment [Auto mated message] The = Troponin-I) system which g enerated this result transmit aisha reference range : <=0.40. The reference r duy was not used to interpr et this result as erin l/abnormal. [facility] HospitalHvqowjiFFCMSGCRCKAJ9808-70-83 03:39:00 Test Item Value Reference Range Interpretation Comments AGAP (test code = AGAP) 17.7 10.0-20.0 [facility] HospitalZkwufwhOULRZVUERPXB1392-76-67 03:39:00 Test Item Value Reference Range Interpretation Comments B/C Ratio (test code = B/C Ratio) 11 1 6-25 [facility] HospitalAqrtveuDGGMSKILWYDK2532-54-33 03:39:00 Test Item Value Reference Range Interpretation Comments Globulin (test code = Globulin) 3.9 2.7-4.2 [facility] HospitalPhbugvtXLWZAPYHYPQS5056-36-21 03:39:00 Test Item Value Reference Range Interpretation Comments A/G Ratio (test code = A/G Ratio) 1.1 1 0.7-1.6 [facility] HospitalPlwmaabGZEBYHYBXTFP6982-12-52 03:39:00 Test Item Value Reference Range Interpretation Comments Glucose Lvl (test code = Glucose Lvl) 100 70-99 [facility] HospitalRgmykzmKWLANFKISUPD8141-05-76 03:39:00 Test Item Value Reference Range Interpretation Comments BUN (test code = BUN) 6 7-22 [facility] HospitalWtpbelrGGWPYNLTYEFZ5989-90-52 03:39:00 Test Item Value Reference Range Interpretation Comments Creatinine Lvl (test code = Creatinine 0.55 0.50-1.40 Lvl) [facility] HospitalTwiqfdkTOIZMUDEDFOX1490-57-09 03:39:00 Test Item Value Reference Range Interpretation Comments Sodium Lvl (test code = Sodium Lvl) 140 135-145 [facility] HospitalUidbkjsUBJGTZQNYWDD6327-56-69 03:39:00 Test Item Value Reference Range Interpretation Comments Potassium Lvl (test code = Potassium 3.7 3.5-5.1 Lvl) [facility] HospitalQbhwgkxXPPEXLEEWXYE2308-91-83 03:39:00 Test Item Value Reference Range Interpretation Comments Chloride Lvl (test code = Chloride Lvl) 103 95-109 [facility] HospitalOfoyuzvCYBZKNCDVPSU1322-15-00 03:39:00 Test Item Value Reference Range Interpretation Comments CO2 (test code = CO2) 23 24-32 [facility] HospitalLaxrojoQTIYJBZPXRXQ7989-44-02 03:39:00 Test Item Value Reference Range Interpretation Comments Calcium Lvl (test code = Calcium Lvl) 9.0 8.5-10.5 [facility] HospitalZfyxkxbMGIRZPAOBZKR6243-74-87 03:39:00 Test Item Value Reference Range Interpretation Comments eGFR (test code = eGFR) 173 [facility] HospitalSiwlyafCWSBZKLGVVDB7868-09-01 03:39:00 Test Item Value Reference Range Interpretation Comments Total Protein (test code = Total 8.3 6.4-8.4 Protein) [facility] HospitalQqtllzrIVUATZLCFOQU6725-88-04 03:39:00 Test Item Value Reference Range Interpretation Comments Albumin Lvl (test code = Albumin Lvl) 4.4 3.5-5.0 [facility] HospitalXpflkniDCUWDJBYTBQL3766-11-01 03:39:00 Test Item Value Reference Range Interpretation Comments ALT (test code = ALT) 36 See_Comment [Auto mated message] The system which ge nerated this result transmit aisha reference range : <=65. The reference range was not used to interpr et this result as erin l/abnormal. [facility] HospitalVvqfqujIGNUVSCRQGOI4667-20-64 03:39:00 Test Item Value Reference Range Interpretation Comments AST (test code = AST) 34 See_Comment [Auto mated message] The system which ge nerated this result transmit aisha reference range : <=37. The reference range was not used to interpr et this result as erin l/abnormal. [facility] HospitalPafaseaSLGFQQPOXGZS3195-64-38 03:39:00 Test Item Value Reference Range Interpretation Comments Alk Phos (test code = Alk Phos) 159 39-136 [facility] HospitalFmafkuxFWINKEQEWVVW3419-26-98 03:39:00 Test Item Value Reference Range Interpretation Comments Bili Total (test code = Bili Total) 3.5 0.2-1.3 [facility] CampusSgxahilBUXNHHIKKO7210-13-31 03:39:00 Test Item Value Reference Range Interpretation Comments Retic Auto (test code = Retic Auto) 7.5 0.5-1.5 [facility] CampusCARDIAC FZYFJSQ4687-31-79 03:39:00 Test Item Value Reference Range Interpretation Comments Troponin-I (test code no gt See_Comment [Auto mated message] The = Troponin-I) system which g enerated this result transmit aisha reference range : <=0.40. The reference r duy was not used to interpr et this result as erin l/abnormal. [facility] HospitalCchumjpXXADHMXVZVEU1484-08-77 03:39:00 Test Item Value Reference Range Interpretation Comments AGAP (test code = AGAP) 17.7 10.0-20.0 [facility] HospitalIlubguhDWIILJIUXAZN7049-04-34 03:39:00 Test Item Value Reference Range Interpretation Comments B/C Ratio (test code = B/C Ratio) 11 1 6-25 [facility] HospitalQxrqqcxDMTEUDPGRVLM6045-10-85 03:39:00 Test Item Value Reference Range Interpretation Comments Globulin (test code = Globulin) 3.9 2.7-4.2 [facility] HospitalAdvqrdeREQLLBYDNWDU0609-47-62 03:39:00 Test Item Value Reference Range Interpretation Comments A/G Ratio (test code = A/G Ratio) 1.1 1 0.7-1.6 [facility] HospitalDkjymmhXLFKXLDMLPCT6388-82-17 03:39:00 Test Item Value Reference Range Interpretation Comments Glucose Lvl (test code = Glucose Lvl) 100 70-99 [facility] HospitalQqsmdzzNMEPSABIKGXN8928-93-28 03:39:00 Test Item Value Reference Range Interpretation Comments BUN (test code = BUN) 6 7-22 [facility] HospitalLgeedypBCLZTNQDPDFW9847-66-59 03:39:00 Test Item Value Reference Range Interpretation Comments Creatinine Lvl (test code = Creatinine 0.55 0.50-1.40 Lvl) [facility] HospitalMqrfvgsPDVUBZWDNKDC6922-59-21 03:39:00 Test Item Value Reference Range Interpretation Comments Sodium Lvl (test code = Sodium Lvl) 140 135-145 [facility] HospitalPsgoekeJNXDVNTVBSRY8478-01-41 03:39:00 Test Item Value Reference Range Interpretation Comments Potassium Lvl (test code = Potassium 3.7 3.5-5.1 Lvl) [facility] HospitalYkvauwxFJFGIYGAOHBH6525-52-19 03:39:00 Test Item Value Reference Range Interpretation Comments Chloride Lvl (test code = Chloride Lvl) 103 95-109 [facility] HospitalZmwtbiqMENJFUXFXIHB1638-49-19 03:39:00 Test Item Value Reference Range Interpretation Comments CO2 (test code = CO2) 23 24-32 [facility] HospitalFhzldolGOECSSMJGAMK6861-49-77 03:39:00 Test Item Value Reference Range Interpretation Comments Calcium Lvl (test code = Calcium Lvl) 9.0 8.5-10.5 [facility] HospitalMlhomduZEROVDNWAOXX3237-68-53 03:39:00 Test Item Value Reference Range Interpretation Comments eGFR (test code = eGFR) 173 [facility] HospitalTqtvidsAVBJXAPRHXSO1647-53-07 03:39:00 Test Item Value Reference Range Interpretation Comments Total Protein (test code = Total 8.3 6.4-8.4 Protein) [facility] HospitalRjtjgowPUXSKEMKZAPP2250-37-43 03:39:00 Test Item Value Reference Range Interpretation Comments Albumin Lvl (test code = Albumin Lvl) 4.4 3.5-5.0 [facility] HospitalCalhwioXBDFIHQXBOHQ4846-33-50 03:39:00 Test Item Value Reference Range Interpretation Comments ALT (test code = ALT) 36 See_Comment [Auto mated message] The system which ge nerated this result transmit aisha reference range : <=65. The reference range was not used to interpr et this result as erin l/abnormal. [facility] HospitalClbibbcOYDLODETMAPG3406-72-32 03:39:00 Test Item Value Reference Range Interpretation Comments AST (test code = AST) 34 See_Comment [Auto mated message] The system which ge nerated this result transmit aisha reference range : <=37. The reference range was not used to interpr et this result as erin l/abnormal. [facility] HospitalYsepzdrUMIKXFJNRASJ8009-43-91 03:39:00 Test Item Value Reference Range Interpretation Comments Alk Phos (test code = Alk Phos) 159 39-136 [facility] HospitalLpceyzoFAGQNVAMTVOB4360-96-17 03:39:00 Test Item Value Reference Range Interpretation Comments Bili Total (test code = Bili Total) 3.5 0.2-1.3 [facility] HospitalLdinwbtXPJIXGZFXA1080-83-22 03:39:00 Test Item Value Reference Range Interpretation Comments Retic Auto (test code = Retic Auto) 7.5 0.5-1.5 [facility] HospitalOwrdabiMMTNNWDNTV8747-14-60 03:33:42 Test Item Value Reference Range Interpretation Comments Neutrophils # (test code = Neutrophils 5.6 1.5-8.1 #) [facility] HospitalIpujxovLZLIXGZVOT4651-08-29 03:33:42 Test Item Value Reference Range Interpretation Comments Lymphocytes # (test code = Lymphocytes 2.1 1.0-5.5 #) [facility] HospitalGmorblkYQYRPHCSLR6690-64-04 03:33:42 Test Item Value Reference Range Interpretation Comments Monocytes # (test code 0.8 See_Comment [Aut omated message] The = Monocytes #) system which generated this result tra nsmitted reference range : <=0.8. The reference r duy was not used to int erpret this result as normal/abnormal . [facility] HospitalYghkbvkPSHCUMHUVF4506-82-14 03:33:42 Test Item Value Reference Range Interpretation Comments Eosinophils # (test code 0.3 See_Comment [A utomated message] The = Eosinophils #) system whic h generated this result tra nsmitted reference range : <=0.5. The reference r duy was not used to int erpret this result as normal/abnormal . [facility] HospitalFiolmwoBIOMQUWNHB8614-56-85 03:33:42 Test Item Value Reference Range Interpretation Comments Segs (test code = Segs) 64.0 45.0-75.0 [facility] HospitalYkjlgfiFKHYHLBGFM6335-93-14 03:33:42 Test Item Value Reference Range Interpretation Comments Bands (test code = 0.0 See_Comment [Automat ed message] The Bands) system which ge nerated this result transmit aisha reference range : <=11.0. The reference r duy was not used to interpr et this result as erin l/abnormal. [facility] HospitalOzxxznsLWNHYTDGKP1343-30-51 03:33:42 Test Item Value Reference Range Interpretation Comments Lymphocytes (test code = Lymphocytes) 24.0 20.0-40.0 [facility] HospitalVymsfsnKPLKFDENIV9697-96-99 03:33:42 Test Item Value Reference Range Interpretation Comments Monocytes (test code = Monocytes) 9.0 2.0-12.0 [place] [address]-12-31 03:33:42 Test Item Value Reference Range Interpretation Comments Eosinophils (test code = 3.0 See_Comment [A utomated message] The Eosinophils) system which ge nerated this result tra nsmitted reference range : <=4.0. The reference r duy was not used to int erpret this result as normal/abnormal . [facility] HospitalXdpgtobDDMAJVWVII3425-44-97 03:33:42 Test Item Value Reference Range Interpretation Comments Atypical Lymphs (test code = Atypical 0.0 Lymphs) [facility] HospitalEqmhtgtYNYCJHZUQY3413-04-71 03:33:42 Test Item Value Reference Range Interpretation Comments NRBC (test code = NRBC) 3 [facility] HospitalUvjelotIYKDDHKSLT9507-94-43 03:33:42 Test Item Value Reference Range Interpretation Comments Plt Morph (test code = Normal (07/30/19 9:33 Plt Morph) PM) [facility] HospitalWqzyhgjKUAHYZZLPL3069-71-31 03:33:42 Test Item Value Reference Range Interpretation Comments Anisocyte (test code = 1+ *ABN*(07/30/19 Anisocyte) 9:33 PM) [facility] HospitalLqevfouBGQNRKHLXT1882-90-24 03:33:42 Test Item Value Reference Range Interpretation Comments Polychrom (test code = Moderate Polychrom) *ABN*(07/30/19 9:33 PM) [facility] HospitalRwrbndtSEAENYXHKZ8818-66-39 03:33:42 Test Item Value Reference Range Interpretation Comments Target Cell (test code = Target Cell) Slight [facility] HospitalGiamaywGIDRQDOUNV4804-87-37 03:33:42 Test Item Value Reference Range Interpretation Comments Schistocyte (test code = 1-3 per HPF Schistocyte) (07/30/19 9:33 PM) [facility] HospitalPgusfkqVEWYCLWVWA9231-59-79 03:33:42 Test Item Value Reference Range Interpretation Comments Sickle Cell (test code Slight *ABN*(07/30/19 = Sickle Cell) 9:33 PM) [facility] HospitalExvonzqSUDEDNVNMO4981-62-17 03:33:42 Test Item Value Reference Range Interpretation Comments HJ Body (test code = Occasional *ABN*(07/30/19 HJ Body) 9:33 PM) [facility] HospitalQrvmwxtKHZDPBACAM1426-02-95 03:33:42 Test Item Value Reference Range Interpretation Comments WBC (test code = WBC) 8.7 3.7-10.4 [facility] HospitalFoballeZBJUVVQGVG0053-51-09 03:33:42 Test Item Value Reference Range Interpretation Comments RBC (test code = RBC) 2.72 4.70-6.10 [facility] HospitalKknfjeyKQJQQGRBGR5560-88-90 03:33:42 Test Item Value Reference Range Interpretation Comments Hgb (test code = Hgb) 9.2 14.0-18.0 [facility] HospitalKvbbjvlHQFPNRRMWS9122-26-84 03:33:42 Test Item Value Reference Range Interpretation Comments Hct (test code = Hct) 25.8 42.0-54.0 [facility] HospitalWhzfuhuECELWDJXID7352-38-12 03:33:42 Test Item Value Reference Range Interpretation Comments MCV (test code = MCV) 94.9 80.0-94.0 [facility] HospitalWgrfrmoHMVEJGAQBO1812-02-10 03:33:42 Test Item Value Reference Range Interpretation Comments MCH (test code = MCH) 33.8 pg 27.0-31.0 [facility] HospitalDvmhebjXXIRCMCQQY2623-81-35 03:33:42 Test Item Value Reference Range Interpretation Comments MCHC (test code = MCHC) 35.6 32.0-36.0 [facility] HospitalXtsauphUDDYZZRYCA9262-31-43 03:33:42 Test Item Value Reference Range Interpretation Comments RDW (test code = RDW) 25.4 11.5-14.5 [facility] HospitalVdezvfoNLEPGYQPBY4101-94-96 03:33:42 Test Item Value Reference Range Interpretation Comments Platelet (test code = Platelet) 514 133-450 [facility] HospitalHavwegkRRTBPIINJT3020-78-06 03:33:42 Test Item Value Reference Range Interpretation Comments MPV (test code = MPV) 7.2 7.4-10.4 [facility] HospitalQmhtolmVXWCOKLCMP8246-98-89 03:33:42 Test Item Value Reference Range Interpretation Comments PT (test code = PT) 14.2 s 12.0-14.7 [facility] HospitalVrwmjfrJOJRJAQNTI2650-34-23 03:33:42 Test Item Value Reference Range Interpretation Comments INR (test code = INR) 1.10 1 0.85-1.17 [facility] HospitalRnnvvapQVKUQGTEDT8730-97-40 03:33:42 Test Item Value Reference Range Interpretation Comments PTT (test code = PTT) 34.9 s 22.9-35.8 [facility] HospitalDxttysxMSBJHWYDDD8224-35-93 03:33:42 Test Item Value Reference Range Interpretation Comments Neutrophils # (test code = Neutrophils 5.6 1.5-8.1 #) [facility] HospitalVjndsphJPZMASXSNQ8885-02-34 03:33:42 Test Item Value Reference Range Interpretation Comments Lymphocytes # (test code = Lymphocytes 2.1 1.0-5.5 #) [facility] HospitalEqhnkvyPGMBGSHZVA6381-28-41 03:33:42 Test Item Value Reference Range Interpretation Comments Monocytes # (test code 0.8 See_Comment [Aut omated message] The = Monocytes #) system which generated this result tra nsmitted reference range : <=0.8. The reference r duy was not used to int erpret this result as normal/abnormal . [facility] HospitalQdbzvpsAODVJISJPQ2732-75-72 03:33:42 Test Item Value Reference Range Interpretation Comments Eosinophils # (test code 0.3 See_Comment [A utomated message] The = Eosinophils #) system whic h generated this result tra nsmitted reference range : <=0.5. The reference r duy was not used to int erpret this result as normal/abnormal . [facility] HospitalPdvuiehSYAENNSMNR0985-84-25 03:33:42 Test Item Value Reference Range Interpretation Comments Segs (test code = Segs) 64.0 45.0-75.0 [facility] HospitalAnbbzroRAANWLSKQW9557-04-49 03:33:42 Test Item Value Reference Range Interpretation Comments Bands (test code = 0.0 See_Comment [Automat ed message] The Bands) system which ge nerated this result transmit aisha reference range : <=11.0. The reference r duy was not used to interpr et this result as erin l/abnormal. [facility] HospitalPoelfcpSITGYEJRZU7942-11-78 03:33:42 Test Item Value Reference Range Interpretation Comments Lymphocytes (test code = Lymphocytes) 24.0 20.0-40.0 [facility] HospitalAlohfuaWVGVUPCBEL9778-41-48 03:33:42 Test Item Value Reference Range Interpretation Comments Monocytes (test code = Monocytes) 9.0 2.0-12.0 [facility] HospitalSlsocmeUYYUZGRCMM1681-18-97 03:33:42 Test Item Value Reference Range Interpretation Comments Eosinophils (test code = 3.0 See_Comment [A utomated message] The Eosinophils) system which ge nerated this result tra nsmitted reference range : <=4.0. The reference r duy was not used to int erpret this result as normal/abnormal . [facility] HospitalPubttfwUWGWXAXDDL2416-72-52 03:33:42 Test Item Value Reference Range Interpretation Comments Atypical Lymphs (test code = Atypical 0.0 Lymphs) [facility] HospitalUzyqywqZTMWRVQZXT5272-49-49 03:33:42 Test Item Value Reference Range Interpretation Comments NRBC (test code = NRBC) 3 [facility] HospitalZkfwtvmNUBTQAJVER6477-19-58 03:33:42 Test Item Value Reference Range Interpretation Comments Plt Morph (test code = Normal (07/30/19 9:33 Plt Morph) PM) [facility] HospitalSspqqsyXLRLBMXDQT7313-33-47 03:33:42 Test Item Value Reference Range Interpretation Comments Anisocyte (test code = 1+ *ABN*(07/30/19 Anisocyte) 9:33 PM) [facility] HospitalLurjeowOGWTNMFAJH6848-61-21 03:33:42 Test Item Value Reference Range Interpretation Comments Polychrom (test code = Moderate Polychrom) *ABN*(07/30/19 9:33 PM) [facility] HospitalMkamdekFTEUTWZGTV3663-76-97 03:33:42 Test Item Value Reference Range Interpretation Comments Target Cell (test code = Target Cell) Slight [facility] HospitalJddscjwPCVUJIOUVM2820-39-68 03:33:42 Test Item Value Reference Range Interpretation Comments Schistocyte (test code = 1-3 per HPF Schistocyte) (07/30/19 9:33 PM) [facility] HospitalXmkhwgcFFLXOVGOXB3802-17-47 03:33:42 Test Item Value Reference Range Interpretation Comments Sickle Cell (test code Slight *ABN*(07/30/19 = Sickle Cell) 9:33 PM) [facility] HospitalXmdlaafDWQJYYSZFB3332-00-73 03:33:42 Test Item Value Reference Range Interpretation Comments HJ Body (test code = Occasional *ABN*(07/30/19 HJ Body) 9:33 PM) [facility] HospitalFlxawrdOCYQWFEPVE5700-78-03 03:33:42 Test Item Value Reference Range Interpretation Comments WBC (test code = WBC) 8.7 3.7-10.4 [facility] HospitalVldvdbtHNXNFHMYAM8538-10-35 03:33:42 Test Item Value Reference Range Interpretation Comments RBC (test code = RBC) 2.72 4.70-6.10 [facility] HospitalItrzkvsSEDAORYIMT1392-42-74 03:33:42 Test Item Value Reference Range Interpretation Comments Hgb (test code = Hgb) 9.2 14.0-18.0 [facility] HospitalLlzjgxiYJEIMDOSGR0086-32-63 03:33:42 Test Item Value Reference Range Interpretation Comments Hct (test code = Hct) 25.8 42.0-54.0 [place] 125799-12-31 03:33:42 Test Item Value Reference Range Interpretation Comments MCV (test code = MCV) 94.9 80.0-94.0 [facility] HospitalXmqpsbdAXBRWDOBYY6470-52-33 03:33:42 Test Item Value Reference Range Interpretation Comments MCH (test code = MCH) 33.8 pg 27.0-31.0 [facility] HospitalHfswvrgZFMUOKIISZ6401-88-40 03:33:42 Test Item Value Reference Range Interpretation Comments MCHC (test code = MCHC) 35.6 32.0-36.0 [facility] HospitalKdcmdnqMUGPLMGVKE9152-97-70 03:33:42 Test Item Value Reference Range Interpretation Comments RDW (test code = RDW) 25.4 11.5-14.5 [place] 125799-12-31 03:33:42 Test Item Value Reference Range Interpretation Comments Platelet (test code = Platelet) 514 133-450 [facility] HospitalJxrsggqSOZYSXUBKB9272-59-88 03:33:42 Test Item Value Reference Range Interpretation Comments MPV (test code = MPV) 7.2 7.4-10.4 [facility] HospitalNmjdyffUBNLLBYBMI4979-91-68 03:33:42 Test Item Value Reference Range Interpretation Comments PT (test code = PT) 14.2 s 12.0-14.7 [facility] HospitalFuagpefRQLJCCCKLZ9526-79-17 03:33:42 Test Item Value Reference Range Interpretation Comments INR (test code = INR) 1.10 1 0.85-1.17 [facility] HospitalNyqllnlNZIJNAAQMS2714-71-60 03:33:42 Test Item Value Reference Range Interpretation Comments PTT (test code = PTT) 34.9 s 22.9-35.8 [facility] HospitalVggkhjjNKFKWHOKLL7358-14-31 03:33:42 Test Item Value Reference Range Interpretation Comments Neutrophils # (test code = Neutrophils 5.6 1.5-8.1 #) [facility] HospitalIqucyoeYNWGPCTNDL2076-07-21 03:33:42 Test Item Value Reference Range Interpretation Comments Lymphocytes # (test code = Lymphocytes 2.1 1.0-5.5 #) [facility] HospitalKzhzfryUYWBFLQGJH0710-43-89 03:33:42 Test Item Value Reference Range Interpretation Comments Monocytes # (test code 0.8 See_Comment [Aut omated message] The = Monocytes #) system which generated this result tra nsmitted reference range : <=0.8. The reference r duy was not used to int erpret this result as normal/abnormal . [facility] HospitalMtbtntqVQSALYMJGU7345-49-76 03:33:42 Test Item Value Reference Range Interpretation Comments Eosinophils # (test code 0.3 See_Comment [A utomated message] The = Eosinophils #) system whic h generated this result tra nsmitted reference range : <=0.5. The reference r duy was not used to int erpret this result as normal/abnormal . [facility] HospitalYokjilbGLMNZYJADX2146-48-12 03:33:42 Test Item Value Reference Range Interpretation Comments Segs (test code = Segs) 64.0 45.0-75.0 [facility] HospitalAmbfsibBDBMGILEQQ2991-73-17 03:33:42 Test Item Value Reference Range Interpretation Comments Bands (test code = 0.0 See_Comment [Automat ed message] The Bands) system which ge nerated this result transmit aisha reference range : <=11.0. The reference r duy was not used to interpr et this result as erin l/abnormal. [facility] HospitalZlubpgfBSTKZPDQON5270-12-61 03:33:42 Test Item Value Reference Range Interpretation Comments Lymphocytes (test code = Lymphocytes) 24.0 20.0-40.0 [facility] HospitalGyqwobdCJVYOYFMDE8663-60-60 03:33:42 Test Item Value Reference Range Interpretation Comments Monocytes (test code = Monocytes) 9.0 2.0-12.0 [facility] HospitalOsmwrceFOWDBVWMDR4935-75-83 03:33:42 Test Item Value Reference Range Interpretation Comments Eosinophils (test code = 3.0 See_Comment [A utomated message] The Eosinophils) system which ge nerated this result tra nsmitted reference range : <=4.0. The reference r duy was not used to int erpret this result as normal/abnormal . [facility] HospitalUdfoeivXJZWCHCQVY7444-21-19 03:33:42 Test Item Value Reference Range Interpretation Comments Atypical Lymphs (test code = Atypical 0.0 Lymphs) [facility] HospitalPggzuonFSMQVRAVLT7553-83-32 03:33:42 Test Item Value Reference Range Interpretation Comments NRBC (test code = NRBC) 3 [facility] HospitalVgxqstnHGDFPMCYQA4086-50-62 03:33:42 Test Item Value Reference Range Interpretation Comments Plt Morph (test code = Normal (07/30/19 9:33 Plt Morph) PM) [facility] HospitalGallbzeNXTQIXITNE4660-40-51 03:33:42 Test Item Value Reference Range Interpretation Comments Anisocyte (test code = 1+ *ABN*(07/30/19 Anisocyte) 9:33 PM) [facility] HospitalEuzpetkBFKQLKXGCW0293-50-92 03:33:42 Test Item Value Reference Range Interpretation Comments Polychrom (test code = Moderate Polychrom) *ABN*(07/30/19 9:33 PM) [facility] HospitalTbhzilnTCVINRJIVE3082-11-49 03:33:42 Test Item Value Reference Range Interpretation Comments Target Cell (test code = Target Cell) Slight [facility] HospitalEigicvbOOWPKREEEB7300-68-04 03:33:42 Test Item Value Reference Range Interpretation Comments Schistocyte (test code = 1-3 per HPF Schistocyte) (07/30/19 9:33 PM) [facility] HospitalWbzewmvKBHYYMNEVX8533-25-64 03:33:42 Test Item Value Reference Range Interpretation Comments Sickle Cell (test code Slight *ABN*(07/30/19 = Sickle Cell) 9:33 PM) [facility] HospitalPsfvczgEOOASAOERE3526-00-37 03:33:42 Test Item Value Reference Range Interpretation Comments HJ Body (test code = Occasional *ABN*(07/30/19 HJ Body) 9:33 PM) [facility] HospitalGlubqnhKMIJPCITZC4956-85-83 03:33:42 Test Item Value Reference Range Interpretation Comments WBC (test code = WBC) 8.7 3.7-10.4 [facility] HospitalOgoewowLCKBXMQUGT4045-39-14 03:33:42 Test Item Value Reference Range Interpretation Comments RBC (test code = RBC) 2.72 4.70-6.10 [facility] HospitalUaiqycxHSWPDTCLXN1781-51-10 03:33:42 Test Item Value Reference Range Interpretation Comments Hgb (test code = Hgb) 9.2 14.0-18.0 [facility] HospitalTttzdumJOLPFONZES6865-66-58 03:33:42 Test Item Value Reference Range Interpretation Comments Hct (test code = Hct) 25.8 42.0-54.0 [facility] HospitalQxyxdwxREOZVGUTMY0695-58-08 03:33:42 Test Item Value Reference Range Interpretation Comments MCV (test code = MCV) 94.9 80.0-94.0 [facility] HospitalSnewmntCYXMFFZURO3082-08-49 03:33:42 Test Item Value Reference Range Interpretation Comments MCH (test code = MCH) 33.8 pg 27.0-31.0 [facility] HospitalQlrvqwhTSGFACQQMU7050-44-26 03:33:42 Test Item Value Reference Range Interpretation Comments MCHC (test code = MCHC) 35.6 32.0-36.0 [facility] HospitalWsofoepTUIPWAYWYN1852-86-69 03:33:42 Test Item Value Reference Range Interpretation Comments RDW (test code = RDW) 25.4 11.5-14.5 [facility] HospitalOoxbwtnQVLGODRFGJ5479-66-34 03:33:42 Test Item Value Reference Range Interpretation Comments Platelet (test code = Platelet) 514 133-450 [facility] HospitalMbbowemWSFFFJNGXF9086-49-21 03:33:42 Test Item Value Reference Range Interpretation Comments MPV (test code = MPV) 7.2 7.4-10.4 [facility] HospitalMjtgswqBESSWVMXKF9951-40-53 03:33:42 Test Item Value Reference Range Interpretation Comments PT (test code = PT) 14.2 s 12.0-14.7 [facility] HospitalRugabjpBRPYCOJUOI1679-87-06 03:33:42 Test Item Value Reference Range Interpretation Comments INR (test code = INR) 1.10 1 0.85-1.17 [facility] HospitalTkegkciVCEDJEEYDL9996-86-33 03:33:42 Test Item Value Reference Range Interpretation Comments PTT (test code = PTT) 34.9 s 22.9-35.8 [facility] HospitalLxpdexuPXEYOSWSUC1401-58-14 03:33:42 Test Item Value Reference Range Interpretation Comments Neutrophils # (test code = Neutrophils 5.6 1.5-8.1 #) [facility] HospitalZgwgkbcALGXPEEYRD8069-60-22 03:33:42 Test Item Value Reference Range Interpretation Comments Lymphocytes # (test code = Lymphocytes 2.1 1.0-5.5 #) [facility] HospitalRlcuxkmPIZMHJMWAQ6485-41-04 03:33:42 Test Item Value Reference Range Interpretation Comments Monocytes # (test code 0.8 See_Comment [Aut omated message] The = Monocytes #) system which generated this result tra nsmitted reference range : <=0.8. The reference r duy was not used to int erpret this result as normal/abnormal . [facility] HospitalTvyejdaZRSRLHSKWR9109-47-25 03:33:42 Test Item Value Reference Range Interpretation Comments Eosinophils # (test code 0.3 See_Comment [A utomated message] The = Eosinophils #) system whic h generated this result tra nsmitted reference range : <=0.5. The reference r duy was not used to int erpret this result as normal/abnormal . [facility] HospitalAmcmwmtKZMSWUFHQC5435-81-72 03:33:42 Test Item Value Reference Range Interpretation Comments Segs (test code = Segs) 64.0 45.0-75.0 [facility] HospitalIsbchejEFLEAVLBHA7901-97-92 03:33:42 Test Item Value Reference Range Interpretation Comments Bands (test code = 0.0 See_Comment [Automat ed message] The Bands) system which ge nerated this result transmit aisha reference range : <=11.0. The reference r duy was not used to interpr et this result as erin l/abnormal. [facility] HospitalUagugojRYWZJBBNSB6296-57-76 03:33:42 Test Item Value Reference Range Interpretation Comments Lymphocytes (test code = Lymphocytes) 24.0 20.0-40.0 [facility] HospitalArwwezdPTDIOUACGZ3194-58-43 03:33:42 Test Item Value Reference Range Interpretation Comments Monocytes (test code = Monocytes) 9.0 2.0-12.0 [facility] HospitalHqjflsvZLCQTYUOZI7795-48-72 03:33:42 Test Item Value Reference Range Interpretation Comments Eosinophils (test code = 3.0 See_Comment [A utomated message] The Eosinophils) system which ge nerated this result tra nsmitted reference range : <=4.0. The reference r duy was not used to int erpret this result as normal/abnormal . [facility] HospitalWviadigSYFODBZKMP8418-43-64 03:33:42 Test Item Value Reference Range Interpretation Comments Atypical Lymphs (test code = Atypical 0.0 Lymphs) [facility] HospitalXqcdmtwRXVZNSLIJQ5254-94-46 03:33:42 Test Item Value Reference Range Interpretation Comments NRBC (test code = NRBC) 3 [facility] HospitalUircmkxFMKMQJQGDV0564-98-66 03:33:42 Test Item Value Reference Range Interpretation Comments Plt Morph (test code = Normal (07/30/19 9:33 Plt Morph) PM) [facility] HospitalExnspnmZXNWSGERTR4503-25-97 03:33:42 Test Item Value Reference Range Interpretation Comments Anisocyte (test code = 1+ *ABN*(12/30/19 Anisocyte) 9:33 PM) [facility] HospitalPrlyjtdYTDSQXKHOM1631-69-42 03:33:42 Test Item Value Reference Range Interpretation Comments Polychrom (test code = Moderate Polychrom) *ABN*(07/30/19 9:33 PM) [facility] HospitalGeowpopWGOAJOQYDG7529-32-72 03:33:42 Test Item Value Reference Range Interpretation Comments Target Cell (test code = Target Cell) Slight [facility] HospitalJadpkzfGMMTWMPBES2733-11-06 03:33:42 Test Item Value Reference Range Interpretation Comments Schistocyte (test code = 1-3 per HPF Schistocyte) (07/30/19 9:33 PM) [facility] HospitalOtroanvIPCPVRXWIW5082-20-60 03:33:42 Test Item Value Reference Range Interpretation Comments Sickle Cell (test code Slight *ABN*(07/30/19 = Sickle Cell) 9:33 PM) [facility] HospitalIaoxzipMKMWSBIMGL3265-98-18 03:33:42 Test Item Value Reference Range Interpretation Comments HJ Body (test code = Occasional *ABN*(07/30/19 HJ Body) 9:33 PM) [facility] HospitalWtlirlyNXMBFOCXOP6742-95-69 03:33:42 Test Item Value Reference Range Interpretation Comments WBC (test code = WBC) 8.7 3.7-10.4 [facility] HospitalQkvxxdtMTEJBFYNEM5924-87-25 03:33:42 Test Item Value Reference Range Interpretation Comments RBC (test code = RBC) 2.72 4.70-6.10 [facility] HospitalNpbnrsbXKELHEOYDJ1086-84-02 03:33:42 Test Item Value Reference Range Interpretation Comments Hgb (test code = Hgb) 9.2 14.0-18.0 [facility] HospitalUkajlcdPULHZOKYWF7761-15-10 03:33:42 Test Item Value Reference Range Interpretation Comments Hct (test code = Hct) 25.8 42.0-54.0 [facility] HospitalQjhyusuMIGHQOITSH6900-95-16 03:33:42 Test Item Value Reference Range Interpretation Comments MCV (test code = MCV) 94.9 80.0-94.0 [facility] HospitalCgksvrePTAPGUEGKX7317-76-24 03:33:42 Test Item Value Reference Range Interpretation Comments MCH (test code = MCH) 33.8 pg 27.0-31.0 [facility] HospitalYxdgphaWQOVWKPERG4799-88-72 03:33:42 Test Item Value Reference Range Interpretation Comments MCHC (test code = MCHC) 35.6 32.0-36.0 [facility] HospitalSvrxxeaYDYIJHIHFF2891-24-35 03:33:42 Test Item Value Reference Range Interpretation Comments RDW (test code = RDW) 25.4 11.5-14.5 [facility] HospitalMrsmfwrIJLKSVAAHP7354-44-53 03:33:42 Test Item Value Reference Range Interpretation Comments Platelet (test code = Platelet) 514 133-450 [facility] HospitalHydobeeHJACIEVCEH6182-21-29 03:33:42 Test Item Value Reference Range Interpretation Comments MPV (test code = MPV) 7.2 7.4-10.4 [facility] HospitalVmfiezjGTMKUMJDKZ2791-56-47 03:33:42 Test Item Value Reference Range Interpretation Comments PT (test code = PT) 14.2 s 12.0-14.7 [facility] HospitalTupxgxkEWJBRRLUDQ6585-05-13 03:33:42 Test Item Value Reference Range Interpretation Comments INR (test code = INR) 1.10 1 0.85-1.17 [facility] HospitalEgpjjktDMJPDXGKCZ4944-66-35 03:33:42 Test Item Value Reference Range Interpretation Comments PTT (test code = PTT) 34.9 s 22.9-35.8 [facility]] CMP W/ZWSX4876-82-06 00:00:00 Test Item Value Reference Range Interpretation Comments Glucose (test code = 2345-7) 82 mg/dL 65-99 BUN (test code = 3094-0) 6 mg/dL 6-20 Creatinine; Below Low 0.48 mg/dL 0.76-1.27 Threshold (test code = 2160-0) eGFR If NonAfricn Am (test 159 mL/min/1.7 >59 code = 63176-0) eGFR If Africn Am (test code = 183 mL/min/1.7 >59 23032-2) BUN/Creatinine Ratio (test 13 9-20 code = 3097-3) Sodium, Serum (test code = 139 mmol/L 128-730 6034-2) Potassium (test code = 2823-3) 4.4 mmol/L 3.5-5.2 Chloride (test code = 2075-0) 99 mmol/L 96-106 Carbon Dioxide, Total (test 22 mmol/L 20-29 code = 8-9) Calcium, Serum (test code = 9.4 mg/dL 8.7-10.2 69105-2) Protein, Total (test code = 7.8 g/dL 6.0-8.5 2885-2) Albumin (test code = 1751-7) 4.7 g/dL 3.5-5.5 Globalulin, Total (test code = 3.1 g/dL 1.5-4.5 93064-0) A/G Ratio (test code = 1759-0) 1.5 1.2-2.2 Bilirubin, Total; Above High 1.9 mg/dL 0.0-1.2 Threshold (test code = 1975-2) Alkaline Phosphatase; Above 183 {IU/L} 39-117 High Threshold (test code = 6768-6) AST (SGOT) (test code = 19 {IU/L} 0-40 1920-8) ALT (SGPT) (test code = 9 {IU/L} 0-44 1742-6) [facility]] CBC (INCLUDES DIFF/PLT)2019-06-15 00:00:00 Test Item [...] (test 0 % Not Estab. code = 23077-5) Immature Grans (Abs) (test 0.0 {x10E3/uL} 0.0-0.1 code = 50549-5) NRBC (test code = 09562-1) See Comment Hematology Comments: (test See Comment code = 98452-7) [facility]] VITAMIN D, 25-HYDROXY, LC/MS/[id number] 00:00:00 Test Item Value Reference Range Interpretation Comments Vitamin D, 12.4 ng/mL 30.0-100.0 Vitamin D defic iency has 25-Hydroxy; Below been defin ed by the Low Threshold (test [facility] ofMed[facility] and code = 04577-0) an Endocrine Society practice guidel ine as alevel of serum 25-OH vitamin D less than 20 ng/mL (1,2).The Endocrine Socie ty went on to further d efine vitamin Dinsuff iciency as a level betw een 21 and 29 ng/mL (2 ).1. IOM ([place] [employer] M ed[employer]). 2010. Dietary r eference intakes for josé antonio cium and D. Marcos D C: The [employer] ies Press.2. Bradley MF, Tatum PAYAN, Faraz rutledge BLANCHARD, et al. Evaluation, treatment, and prevention of v itamin D deficiency: an Endocrine Society clinica l practice guidel ine. JCEM. 2010; 96(5):1911-30. [facility][QL] [id number] 00:00:00 Test Item Value Reference Range Interpretation Comments LDH; Above High Threshold (test 264 {IU/L} 121-224 code = 2532-0) [facility]] BILIRUBIN, [id number] 00:00:00 Test Item Value Reference Range Interpretation Comments Bilirubin, Direct; Above High 0.56 mg/dL 0.00-0.40 Threshold (test code = 1968-7) [facility]] [id number] 00:00:00 Test Item Value Reference Range Interpretation Comments Ferritin, Serum; Above High 1752 ng/mL 30-400 Threshold (test code = 2276-4) [facility]] RETICULOCYTE [id number] 00:00:00 Test Item Value Reference Range Interpretation Comments Reticulocyte Count; Above High 5.7 % 0.6-2.6 Threshold (test code = 82696-6) [facility]] MICROALBUMIN, RANDOM URINE (W/CREATININE)2019-06-15 00:00:00 Test Item Value Reference Range Interpretation Comments Creatinine, Urine 85.1 mg/dL Not Estab. (test code = 2161-8) Microalbumin, 43.5 ug/mL Not Estab. Urine (test code = 84966-5) Microalb/Creat 51.1 {mg/g creat} 0.0-30.0 Normal: 0.0 - 30.0 Ratio (test code Albuminuria : 31.0 - = Microalb/Creat 300.0 Clini josé antonio Ratio) albuminuria: > 300.0 [facility][] Hgb Frac. [id number] 00:00:00 Test Item Value Reference Range Interpretation [...] 4.1 % 1.8-3.2 Threshold (test code = 83684-2) Hgb Variant (test code 0.0 % >0.0 = 03452-7) Interpretation (test Note: Hemoglo bin pattern and code = 24706-0) concentratio ns are consistent with transfusionof a homozygous Hgb S patient. [facility][L] Drug Profile, Ur, 9 [id number] 00:00:00 Test Item Value Reference Range Interpretation Comments Amphetamines, Urine Negative Jtdaop=7206 Amphetam ine test (test code = 05929-8) includ es Amphetamine and Methamphetamine . Barbituate (test code Negative Ctamyk=366 = 77598-0) Benzodiazepines (test Negative Bqmnpr=721 code = 3390-2) Cannabinoid (test code See Final Cutoff=50 = 30085-7) Results Cannabinoid (test code Positive Cutoff=50 A = Cannabinoid) Carboxy THC GC/MS Conf 200 ng/mL Cutoff=15 (test code = Carboxy THC GC/MS Conf) Cocaine (Metab.) (test Negative Avgvhh=504 code = 3393-6) Opiates (test code = Negative Agduyo=031 Opiate test 3879-4) includes Codein e and Morphine only. Phencyclidine (test Negative Cutoff=25 code = 3936-2) Methadone Screen, Negative Firfih=454 Urine (test code = 75380-9) Propoxyphene, Urine Negative Xzueth=253 (test code = 01168-6) [facility]
[2022-09-02] MEDS ORDERED: NA CHLORIDE 0.9% 1,000 ML ONE ×2 (18:46→19:36)
[2022-09-02] MEDS ORDERED: HYDROMORPHONE HCL 1 MG/ML INJ ONE (18:46)
[2022-09-02 19:01] LABS: Absolute Lymphocytes (CBC) 0.9 K/uL (0.7-4.9); Hematocrit 25.1 % (39.6-49.0); Lymphocytes % 8.9 % (15.3-44.8); MCV 88.5 fL (80-100); MPV 7.4 fL (7.6-11.3); RBC Red Blood Cell Count 2.84 M/uL (4.33-5.43)
[2022-09-02 19:09] LABS: Albumin 4.5 g/dL (3.4-5.0)
[2022-09-02 19:30] LABS: Anisocytosis 3+; Blood Morphology Comment NOTED (NOT SEEN); Platelet Estimate ADEQ; White Blood Cell Scan OK (OK)
[2022-09-02] MEDS ORDERED: HYDROMORPHONE HCL 0.5 MG/0.5 ML INJ ONE (19:36)
[2022-09-02] MEDS ORDERED: FENTANYL 25 MCG/PATCH TD ONE (22:28)
--- NOTE | 2022-09-02 22:43 | EDPHYS ---
Physician Documentation [facility] Name: Justin Baugh Age: 22 yrs Sex: Male : 2000 Arrival Date: 09/02/2022 Time: 16:28 Bed 8 Private MD: ED Physician Silviano Souza HPI: 09/02 18:28 This 22 yrs old Black Male presents to ER via Ambulatory with complaints of Sickle Cell snw Crisis. 18:28 The patient or guardian reports pain. The complaints affect the right hip. Modifying snw factors: the symptoms are aggravated by sickle cell, mild dehydration, out of pain medication. Severity of symptoms: At their worst the symptoms were moderate. The patient has experienced similar episodes in the past. The patient has been recently seen by a physician: The patient has been recently seen at the [facility] Emergency Department, 2000. 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 - Social history:: Smoking status: Patient denies any tobacco usage or history of. ROS: 18:27 Constitutional: Negative for fever, chills, and weight loss, Eyes: Negative for injury, snw pain, redness, and discharge, ENT: Negative for injury, pain, and discharge, Neck: Negative for injury, pain, and swelling, Cardiovascular: Negative for chest pain, palpitations, and edema, Respiratory: Negative for shortness of breath, cough, wheezing, and pleuritic chest pain, Abdomen/GI: Negative for abdominal pain, nausea, vomiting, diarrhea, and constipation, Back: Negative for injury and pain, : Negative for injury, bleeding, discharge, and swelling, Skin: Negative for injury, rash, and discoloration, Neuro: Negative for headache, weakness, numbness, tingling, and seizure, Psych: Negative for depression, anxiety, suicide ideation, homicidal ideation, and hallucinations. 18:27 MS/extremity: Positive for pain, tenderness, of the right hip. Exam: 18:26 Constitutional: This is a well developed, well nourished patient who is awake, alert, snw and in no acute distress. Head/Face: Normocephalic, atraumatic. Eyes: Pupils equal round and reactive to light, extra-ocular motions intact. Lids and lashes normal. Conjunctiva and sclera are not injected but mildly icteric. Cornea within normal limits. Periorbital areas with no swelling, redness, or edema. ENT: Nares patent. No nasal discharge, no septal abnormalities noted. Tympanic membranes are normal and external auditory canals are clear. Oropharynx with no redness, swelling, or masses, exudates, or evidence of obstruction, uvula midline. Mucous membranes moist. Neck: Trachea midline, no thyromegaly or masses palpated, and no cervical lymphadenopathy. Supple, full range of motion without nuchal rigidity, or vertebral point tenderness. No Meningismus. Chest/axilla: Normal chest wall appearance and motion. Nontender with no deformity. No lesions are appreciated. Cardiovascular: Regular rate and rhythm with a normal S1 and S2. No gallops, murmurs, or rubs. Normal PMI, no JVD. No pulse deficits. Respiratory: Lungs have equal breath sounds bilaterally, clear to auscultation and percussion. No rales, rhonchi or wheezes noted. No increased work of breathing, no retractions or nasal flaring. Abdomen/GI: Soft, non-tender, with normal bowel sounds. No distension or tympany. No guarding or rebound. No evidence of tenderness throughout. Back: No spinal tenderness. No costovertebral tenderness. Full range of motion. Skin: Warm, dry with normal turgor. Normal color with no rashes, no lesions, and no evidence of cellulitis. Neuro: Awake and alert, GCS 15, oriented to person, place, time, and situation. Cranial nerves II-XII grossly intact. Motor strength 5/5 in all extremities. Sensory grossly intact. Cerebellar exam normal. Normal gait. Psych: Awake, alert, with orientation to person, place and time. Behavior, mood, and affect are within normal limits. 18:26 Musculoskeletal/extremity: Extremities: grossly normal except: noted in the right hip and right upper thigh: tenderness. Vital Signs: 16:40 BP 116 / 69; Pulse 95; Resp 18; Temp 99.6(O); Pulse Ox 94% on R/A; Weight 68.04 kg; ll1 Height 5 ft. 6 in. (167.64 cm); Pain 8/10; 18:50 BP 121 / 71; Pulse 82; Resp 19 S; Pulse Ox 100% on 3 lpm NC; Pain 8/10; kc6 20:48 BP 112 / 61; Pulse 86; Resp 18; Pulse Ox 100% on 3 lpm NC; ll3 23:09 BP 116 / 60; Pulse 81; Resp 20; Pulse Ox 100% ; ll3 16:40 Body Mass Index 24.21 (68.04 kg, 167.64 cm) ll1 MDM: 16:41 Patient medically screened. snw 22:43 Differential diagnosis: arthritis, strain, sickle cell. Data reviewed: vital signs, snw nurses notes, lab test result(s). Historians other than the Patient: Family Member: Grandmother. External Records Reviewed: Outpatient record: Previous labs and visits, [facility] aware listing. Counseling: I had a detailed discussion with the patient and/or guardian regarding: the historical points, exam findings, and any diagnostic results supporting the discharge/admit diagnosis, lab results, the need for outpatient follow up, for definitive care. Special discussion: Based on the patient's history, exam, and Dx evaluation, there is no indication for emergent intervention or inpatient Tx. It is understood by the patient/guardian that if the Sx's persist or worsen they need to return immediately for re-evaluation. Based on the patient's Hx, exam, and Dx evaluation, there is no indication for emergent surgery or inpatient Tx. It is understood by the patient/guardian that if the Sx's persist or worsen they need to return immediately for re-evaluation. 09/02 18:17 Order name: Retic Count; Complete Time: 19:37 snw 09/02 18:17 Order name: CBC with Diff; Complete Time: 19:37 snw 09/02 18:17 Order name: CPK; Complete Time: 19:24 snw 09/02 18:17 Order name: CMP; Complete Time: 19:24 snw 09/02 19:30 Order name: CBC Smear Scan; Complete Time: 19:37 EDMS 09/02 18:09 Order name: Oxygen Per Protocol; Complete Time: 18:27 snw Administered Medications: 18:48 Drug: NS 0.9% 1000 ml Route: IV; Rate: 1 bolus; Site: right forearm; kc6 19:45 Follow up: IV Status: Completed infusion; IV Intake: 1000ml pf1 20:45 Follow up: Response: No adverse reaction; Marked relief of symptoms pf1 18:48 Drug: Dilaudid (HYDROmorphone) 1 mg Route: IM; Site: right deltoid; kc6 19:40 Follow up: Response: No adverse reaction; Marked relief of symptoms; Pain is decreased; pf1 RASS: Alert and Calm (0) 19:37 Drug: NS 0.9% 1000 ml Route: IV; Rate: 100 ml/hr; Site: right antecubital; tw5 20:30 Follow up: Response: No adverse reaction; Marked relief of symptoms pf1 23:07 Follow up: Response: No adverse reaction; IV Status: Completed infusion; IV Intake: ll3 1000ml 19:37 Drug: Dilaudid (HYDROmorphone) 1 mg Route: IVP; Site: right antecubital; tw5 20:30 Follow up: Response: No adverse reaction; Marked relief of symptoms; Pain is decreased; pf1 RASS: Alert and Calm (0) 22:27 Drug: fentaNYL Patch (25 mcg/hr) 1 patches Route: Transdermal; Site: affected area; ll3 23:07 Follow up: Response: No adverse reaction; No change in condition ll3 Disposition: 19:17 Co-signature as Attending Physician, Silviano Souza DO I was immediately available on-site ms3 in the Emergency Department for consultation in the care of the patient. Disposition Summary: 09/02/22 22:42 Discharge Ordered Location: Home snw Condition: Stable snw Diagnosis - Other sickle-cell disorders snw - Pain in right hip snw Followup: snw - With: Emergency Department - When: As needed - Reason: Worsening of condition Followup: snw - With: Private Physician - When: 1 - 2 days - Reason: Recheck today's complaints, Continuance of care, Re-evaluation by your physician Discharge Instructions: - Discharge Summary Sheet snw - Musculoskeletal Pain snw - Heat Therapy snw Forms: - Medication Reconciliation Form snw - Thank You Letter snw - Antibiotic Education snw - Prescription Opioid Use snw Signatures: Dispatcher [employer] EDAsiya Mina FNP-Anastacio FOOD PRODUCTION ASSOCIATE-Csnw Vernon Swift RN RN ll1 Silviano Souza DO FERNÁNDEZ ms3 Opal Thao tw5 Lindsey Leroy, RN RN ll3 Elizabeth Kebede, RN RN kc6 Vickie ruby RN pf1
--- NOTE | 2022-09-02 22:43 | ER ---
Nurse's Notes [facility] Name: Justin Baugh Age: 22 yrs Sex: Male : 2000 Arrival Date: 09/02/2022 Time: 16:28 Bed 8 Private MD: Diagnosis: Other sickle-cell disorders;Pain in right hip Presentation: 09/02 16:40 Chief complaint: Patient states: Here 2 days ago for sickle cell crisis. Meds not ll1 helping. Coronavirus screen: Vaccine status: Patient reports being unvaccinated. Client denies travel out of the [place] in the last 14 days. At this time, the client does not indicate any symptoms associated with coronavirus-19. Ebola Screen: Patient denies travel to an Ebola-affected area in the 21 days before illness onset. Initial Sepsis Screen: Does the patient meet any 2 criteria? No. Patient's initial sepsis screen is negative. Does the patient have a suspected source of infection? No. Patient's initial sepsis screen is negative. Risk Assessment: Do you want to hurt yourself or someone else? Patient reports no desire to harm self or others. Onset of symptoms was August 30, 2022. 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 - Social history:: Smoking status: Patient denies any tobacco usage or history of. Screenin:52 [facility] ED Fall Risk Assessment (Adult) History of falling in the last 3 months, kc6 including since admission No falls in past 3 months (0 pts) Confusion or Disorientation No (0 pts) Intoxicated or Sedated No (0 pts) Impaired Gait No (0 pts) Mobility Assist Device Used No (0 pt) Altered Elimination No (0 pt) Score/Fall Risk Level 0 - 2 = Low Risk Oriented to surroundings, Maintained a safe environment, Educated pt \\T\\ family on fall prevention, incl call for assistance when getting out of bed, Assessed \\T\\ reinforced patient's understanding of fall precautions, Hourly rounding (assess needs \\T\\ fall precautionary measures) done. Abuse screen: Denies threats or abuse. Denies injuries from another. Nutritional screening: No deficits noted. Tuberculosis screening: No symptoms or risk factors identified. Assessment: 17:51 General: Appears in no apparent distress. uncomfortable, Behavior is calm, cooperative, kc6 appropriate for age. Pain: Complains of pain in right hip, right leg Pain currently is 8 out of 10 on a pain scale. Quality of pain is described as sharp, Pain began 2-3 days ago. Is continuous, Alleviated by nothing. Noted to be resistant to movement, Also complains of no other associated symptoms. Neuro: Singh Agitation-Sedation Scale (RASS): 0 - Alert and Calm Level of Consciousness is awake, alert, obeys commands, Oriented to person, place, time, situation, Appropriate for age. Cardiovascular: Capillary refill < 3 seconds. Respiratory: Airway is patent Trachea midline Respiratory effort is even, unlabored, Respiratory pattern is regular, symmetrical. GI: No signs and/or symptoms were reported involving the gastrointestinal system. : No signs and/or symptoms were reported regarding the genitourinary system. EENT: No signs and/or symptoms were reported regarding the EENT system. Derm: No signs and/or symptoms reported regarding the dermatologic system. Skin is intact, Skin is pink, warm \\T\\ dry. Musculoskeletal: No signs and/or symptoms reported regarding the musculoskeletal system. Circulation, motion, and sensation intact. Capillary refill < 3 seconds, Range of motion: intact in all extremities. 18:50 Reassessment: Patient appears in no apparent distress at this time. No changes from kc6 previously documented assessment. Patient and/or family updated on plan of care and expected duration. Pain level reassessed. Patient is alert, oriented x 3, equal unlabored respirations, skin warm/dry/pink. 19:00 General: Appears in no apparent distress. comfortable, well groomed, well developed, pf1 Behavior is calm, cooperative, appropriate for age, quiet. Pain: Complains of pain in right leg and right upper thigh and right hip Pain currently is 7 out of 10 on a pain scale. Neuro: No deficits noted. Level of Consciousness is awake, alert, obeys commands, Oriented to person, place, time, situation. Cardiovascular: No deficits noted. Capillary refill < 3 seconds Patient's skin is warm and dry. 19:00 GI: No deficits noted. No signs and/or symptoms were reported involving the pf1 gastrointestinal system. : No deficits noted. No signs and/or symptoms were reported regarding the genitourinary system. EENT: No deficits noted. No signs and/or symptoms were reported regarding the EENT system. Derm: No deficits noted. No signs and/or symptoms reported regarding the dermatologic system. Skin is intact. Musculoskeletal: Capillary refill < 3 seconds, Range of motion: intact in all extremities, Reports pain in right leg and right upper thigh and right hip Pain is 7 out of 10 on a pain scale. 19:10 General: Grandmother on the phone states " This cold water is sending him into a tw5 crisis, and I advise that they take care him properly. They need to give me him IV Dilaudid, not IM. We just need to get him pay free. What you are doing. 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 We just need him pay free so that he can come home.". 19:39 General: Nursing staff spoke to patient closing the communication loop. Patient states tw5 " I understand why they gave me the IM rather than the IV. It is suppose to last longer. The last time I got an IM was when I got kicked in the face by a horse. I just thought that the provider thought I was drug seeking because she kept asking me questions." It was explained to the patient that the provider was asking questions because she needed to get through history of the events so that she may better take care of him. He further stated that he understood and wasn't upset. More pain medication was order by the provider for the patient to reach a tolerable level. His current pain was 7/10 and he stated that a tolerable level would be 5/10. . 19:39 General: Behavior is calm, cooperative, appropriate for age, watching Videos on his tw5 phone. . Pain: Quality of pain is described as. 20:00 Respiratory: No deficits noted. Airway is patent Trachea midline Respiratory effort is pf1 even, unlabored, Respiratory pattern is regular, symmetrical, Breath sounds are clear bilaterally. 20:00 Reassessment: Patient appears in no apparent distress at this time. No changes from pf1 previously documented assessment. Patient and/or family updated on plan of care and expected duration. Pain level reassessed. Patient is alert, oriented x 3, equal unlabored respirations, skin warm/dry/pink. Patient states feeling better. Patient states symptoms have improved. Vital Signs: 16:40 BP 116 / 69; Pulse 95; Resp 18; Temp 99.6(O); Pulse Ox 94% on R/A; Weight 68.04 kg; ll1 Height 5 ft. 6 in. (167.64 cm); Pain 8/10; 18:50 BP 121 / 71; Pulse 82; Resp 19 S; Pulse Ox 100% on 3 lpm NC; Pain 8/10; kc6 20:48 BP 112 / 61; Pulse 86; Resp 18; Pulse Ox 100% on 3 lpm NC; ll3 23:09 BP 116 / 60; Pulse 81; Resp 20; Pulse Ox 100% ; ll3 16:40 Body Mass Index 24.21 (68.04 kg, 167.64 cm) ll1 ED Course: 16:28 Patient arrived in ED. rg4 16:41 Triage completed. ll1 16:41 Asiya Azevedo FNP-C is PHCP. snw 16:41 Silviano Souza DO is Attending Physician. snw 16:41 Arm band placed on. ll1 17:39 Elizabeth Kebede, RN is Primary Nurse. kc6 17:52 Patient has correct armband on for positive identification. Bed in low position. Call kc6 light in reach. Side rails up X 1. 18:38 CMP Sent. kc6 18:38 CPK Sent. kc6 18:38 CBC with Diff Sent. kc6 18:38 Retic Count Sent. kc6 18:38 Inserted saline lock: 20 gauge in right forearm, using aseptic technique. Blood kc6 collected. 23:07 No provider procedures requiring assistance completed. IV discontinued, intact, ll3 bleeding controlled, No redness/swelling at site. Pressure dressing applied. Administered Medications: 18:48 Drug: NS 0.9% 1000 ml Route: IV; Rate: 1 bolus; Site: right forearm; kc6 19:45 Follow up: IV Status: Completed infusion; IV Intake: 1000ml pf1 20:45 Follow up: Response: No adverse reaction; Marked relief of symptoms pf1 18:48 Drug: Dilaudid (HYDROmorphone) 1 mg Route: IM; Site: right deltoid; kc6 19:40 Follow up: Response: No adverse reaction; Marked relief of symptoms; Pain is decreased; pf1 RASS: Alert and Calm (0) 19:37 Drug: NS 0.9% 1000 ml Route: IV; Rate: 100 ml/hr; Site: right antecubital; tw5 20:30 Follow up: Response: No adverse reaction; Marked relief of symptoms pf1 23:07 Follow up: Response: No adverse reaction; IV Status: Completed infusion; IV Intake: ll3 1000ml 19:37 Drug: Dilaudid (HYDROmorphone) 1 mg Route: IVP; Site: right antecubital; tw5 20:30 Follow up: Response: No adverse reaction; Marked relief of symptoms; Pain is decreased; pf1 RASS: Alert and Calm (0) 22:27 Drug: fentaNYL Patch (25 mcg/hr) 1 patches Route: Transdermal; Site: affected area; ll3 23:07 Follow up: Response: No adverse reaction; No change in condition ll3 Medication: 23:07 VIS not applicable for this client. ll3 Intake: 19:45 IV: 1000ml; Total: 1000ml. pf1 23:07 IV: 1000ml; Total: 2000ml. ll3 Outcome: 22:42 Discharge ordered by . snw 23:07 Discharged to home ambulatory, with friend. ll3 23:07 Condition: stable 23:07 Discharge instructions given to patient, friend, Instructed on discharge instructions, follow up and referral plans. Demonstrated understanding of instructions, follow-up care. 23:09 Patient left the ED. ll3 Signatures: Asiya Azevedo, POCKETBOOK MAKER-C POCKETBOOK MAKER-Loren Resendez rg4 Vernon Swift RN RN ll1 Opal Thao tw5 Lindsey Leroy RN RN ll3 Elizabeth Kebede RN RN kc6 Vickie ruby RN RN pf1
[2022-09-02 23:27] VITALS: TEMP 99.6
[2022-09-02 23:33] VITALS: O2SAT 100
[2022-09-02 23:43] VITALS: BP 112/61
== END 2022-09-02 23:09 | disposition home or self-care (01) ==
LOC: ER 16:26
DX: D57.80 Other sickle-cell disorders without crisis (principal); Z88.3 Allergy status to other anti-infective agents
CPT/HCPCS: 96361; 85025; 36415; 82550; 85044; 80053; 96372; 96374; 99284; J1170 ×2; J7030 ×2

== ENCOUNTER 2023-11-20 11:31 | Inpatient (IN) | payer SELFPAY ==
[2023-11-20] MEDS ORDERED: ONDANSETRON 4 MG/2 ML VIAL ONE (11:51)
[2023-11-20] MEDS ORDERED: NA CHLORIDE 0.9% 1,000 ML ONE (11:51)
[2023-11-20] MEDS ORDERED: MORPHINE 4 MG/ML SYR ONE (11:51)
[2023-11-20 12:15] LABS: Absolute Basophils 0.2 K/uL (0-0.5); Absolute Eosinophils 0.1 K/uL (0-0.5); Absolute Lymphocytes (CBC) 1.8 K/uL (0.7-4.9); Absolute Monocytes 0.8 K/uL (0.1-1.3); Absolute Neutrophil 4.4 K/uL (1.8-8.0); Basophils % 2.7 % (0-1.3); Eosinophils % 1.7 % (0-4.4); Hematocrit 23.3 % (39.6-49.0); Hemoglobin 8.7 g/dL (13.6-17.9); Lymphocytes % 24.4 % (15.3-44.8); MCH 33.8 pg (27.0-35.0); MCHC 37.5 g/dL (32.0-36.0); MPV 7.2 fL (7.6-11.3); Monocytes % 10.5 % (3.3-12.3); Neutrophils % 60.7 % (41.7-73.7); Nucleated RBC Absolute Count 0.1 (0-0); Nucleated Red Blood Cells % 1.6 % (0-0); Percent Reticulocyte Count 12.65 % (0.4-2.05); Platelets 369 thou/uL (152-406); RBC Red Blood Cell Count 2.59 M/uL (4.33-5.43); Red Cell Distribution Width 23.4 % (12.1-15.2)
[2023-11-20 12:30] LABS: Anion Gap 7.4 mEq/L (5.0-15.0); Potassium 3.4 mEq/L (3.5-5.1)
[2023-11-20 12:31] LABS: Albumin 4.1 g/dL (3.4-5.0); Albumin/Globulin Ratio 1.4 (1.1-1.8); Bilirubin Total 6.1 mg/dL (0.2-1.0); Protein, Total 7.1 g/dL (6.4-8.2)
[2023-11-20 13:43] LABS: Differential Total Cells Count 100; Eosinophils 1 % (0-3); Lymphocytes 37 % (15-42); Monocytes 10 % (0-10); Nucleated Red Blood Cells 9 /100WBC; Segmented Neutrophils 51 % (40-80)
[2023-11-20 13:48] LABS: Blood Morphology Comment NOTED (NOT SEEN); Platelet Estimate ADEQ; Platelets, Giant FEW
[2023-11-20 13:49] LABS: Anisocytosis 3+; Hypochromasia 2+; Polychromasia 2+
[2023-11-20 13:50] LABS: Target Cells 2+
--- NOTE | 2023-11-20 13:51 | ER ---
Nurse's Notes [facility] Name: Justin Baugh Age: 23 yrs Sex: Male : 2000 Arrival Date: 11/20/2023 Time: 11:31 Bed 8 Private MD: Diagnosis: Other sickle-cell disorders with crisis Presentation: 11/19 11:44 Chief complaint: Patient states: BLANCHARD started this morning. Took some ibuprofen and went ll1 to work. BLANCHARD got worse and now his back is aching so he left work and came in to get checked. Coronavirus screen: Client denies travel out of the [place] in the last 14 days. At this time, the client does not indicate any symptoms associated with coronavirus-19. Ebola Screen: Patient denies travel to an Ebola-affected area in the 21 days before illness onset. Initial Sepsis Screen: Does the patient meet any 2 criteria? No. Patient's initial sepsis screen is negative. Does the patient have a suspected source of infection? No. Patient's initial sepsis screen is negative. Risk Assessment: Do you want to hurt yourself or someone else? Patient reports no desire to harm self or others. Onset of symptoms was November 20, 2023. 11:44 Method Of Arrival: Ambulatory ll1 11:44 Acuity: HAIM 3 ll1 Triage Assessment: 11:46 General: Appears uncomfortable, Behavior is calm, cooperative, appropriate for age. ll1 General: Reports fatigue for. Pain: Complains of pain in head Pain currently is 7 out of 10 on a pain scale. Quality of pain is described as aching. Neuro: Reports headache. Musculoskeletal: Reports back pain. Historical: - Allergies: 11:41 Rocephin; ll1 - PMHx: 11:41 avascular necrosis left shoulder; Sickle Cell; ll1 - PSHx: 11:41 Cholecystectomy; L shoulder SX; ll1 - Immunization history:: Adult Immunizations. - Infectious Disease History:: Denies. - Social history:: Smoking status: Patient denies any tobacco usage or history of. Screenin:05 [facility] ED Fall Risk Assessment (Adult) History of falling in the last 3 months, ld1 including since admission No falls in past 3 months (0 pts). Abuse screen: Denies threats or abuse. Denies injuries from another. Nutritional screening: No deficits noted. Tuberculosis screening: No symptoms or risk factors identified. Assessment: 12:05 General: Appears in no apparent distress. comfortable, Behavior is calm, cooperative, ld1 appropriate for age. Pain: Complains of pain in back Pain does not radiate. Pain currently is 8 out of 10 on a pain scale. Quality of pain is described as throbbing, Pain began suddenly, Is continuous. Neuro: Level of Consciousness is awake, alert, obeys commands, Oriented to person, place, time, situation. Cardiovascular: Capillary refill < 3 seconds Patient's skin is warm and dry. Respiratory: Airway is patent Respiratory effort is even, unlabored. GI: Abdomen is round non-distended. : No signs and/or symptoms were reported regarding the genitourinary system. EENT: No signs and/or symptoms were reported regarding the EENT system. Derm: No signs and/or symptoms reported regarding the dermatologic system. Musculoskeletal: No signs and/or symptoms reported regarding the musculoskeletal system. Vital Signs: 11:44 BP 121 / 56; Pulse 87; Resp 18; Temp 97.1; Pulse Ox 96% on R/A; Weight 66.22 kg; Height ll1 5 ft. 6 in. ; Pain 7/10; 11:44 Body Mass Index 23.56 (66.22 kg, 167.64 cm) ll1 11:44 Pain Scale: Adult ll1 ED Course: 11:34 Patient arrived in ED. mr 11:35 [facility]vez [facility] 7 11:35 Celso Mckeon MD is Attending Physician. jh7 11:41 Arm band placed on Patient placed in an exam room, on a stretcher. ll1 11:43 Riley Cantrell, RN is Primary Nurse. bp 11:46 Triage completed. ll1 12:05 Patient has correct armband on for positive identification. Placed in gown. Bed in low ld1 position. Call light in reach. Side rails up X2. 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 Pulse ox on. NIBP on. Door closed. Noise minimized. Warm blanket given. 12:05 Initial lab(s) drawn, by me, sent to lab. Inserted saline lock: 20 gauge in right iw forearm, using aseptic technique. Blood collected. 12:05 No provider procedures requiring assistance completed. ld1 12:34 Primary Nurse role handed off by Riley Cantrell, ELLA ld1 12:34 Monalisa Souza, ELLA is Primary Nurse. ld1 13:51 Jan Cobb MD is Hospitalizing Provider. 7 15:15 Patient admitted, IV remains in place. ld1 Administered Medications: 12:06 Drug: NS 0.9% IV 1000 ml IV at 1 bolus Per protocol; 1000 mL bolus Route: IV; Rate: 1 iw bolus; Site: right forearm; 12:06 Drug: Ondansetron IVP 4 mg IVP once; over 2 minutes Route: IVP; Site: right forearm; iw 12:06 Drug: morphine IVP or IV 4 mg IVP once over 4 mins Route: IVP; Infused Over: 4 mins; iw Site: right forearm; 14:45 Drug: HYDROmorphone IVP 0.5 mg IVP once Route: IVP; Site: right forearm; bp Medication: 15:15 VIS not applicable for this client. ld1 Outcome: 13:51 Decision to Hospitalize by Provider. 7 15:15 Admitted to Med/surg accompanied by tech, via wheelchair, ld1 15:15 Condition: stable 15:15 Instructed on the need for admit, 15:15 Patient left the ED. ld1 Signatures: Patricia Carver, Reg Reg mr Ella Engel, RN ELLA Riley Cantrell RN RN bp Vernon Swift RN RN [facility] Monalisa Souza, ELLA RN ld1 Chasity Chávez, SECURITIES SALES ASSOCIATE SECURITIES SALES ASSOCIATE [facility]
--- NOTE | 2023-11-20 13:51 | EDPHYS ---
Physician Documentation [facility] Name: Justin Baugh Age: 23 yrs Sex: Male : 2000 Arrival Date: 11/20/2023 Time: 11:31 Bed 8 Private MD: ED Physician Celso Mckeon HPI: 11/19 11:40 This 23 yrs old Black Male presents to ER via Ambulatory with complaints of Back Pain, jh7 Headache, sickle cell . 11:40 23-year-old male with a past medical history of sickle cell anemia and avascular jh7 necrosis presents to the ER complaining of back pain, headache, and possible sickle cell crisis. He reports that when he woke up his back was hurting and that he took ibuprofen prior to going to work. He reported that he was working out in the cold weather which is known as a trigger for his sickle cell crisis. He reports that he also noticed that his eyes were much more yellow than normal. Denies chest pain or shortness of breath. Denies dizziness, fever, syncope, or any other symptoms at this time.. Historical: - Allergies: 11:41 Rocephin; ll1 - PMHx: 11:41 avascular necrosis left shoulder; Sickle Cell; ll1 - PSHx: 11:41 Cholecystectomy; L shoulder SX; ll1 - Immunization history:: Adult Immunizations. - Infectious Disease History:: Denies. - Social history:: Smoking status: Patient denies any tobacco usage or history of. ROS: 11:40 Constitutional: Per HPI jh7 11:40 Back: Positive for pain at rest, 11:40 Neuro: Positive for headache, Negative for altered mental status, dizziness, syncope, visual changes, weakness, Exam: 11:40 Constitutional: This is a well developed, well nourished patient who is awake, alert, jh7 and in no acute distress. Cardiovascular: Regular rate and rhythm with a normal S1 and S2. No gallops, murmurs, or rubs. Normal PMI, no JVD. No pulse deficits. Respiratory: Lungs have equal breath sounds bilaterally, clear to auscultation and percussion. No rales, rhonchi or wheezes noted. No increased work of breathing, no retractions or nasal flaring. Abdomen/GI: Soft, non-tender, with normal bowel sounds. No distension or tympany. No guarding or rebound. No evidence of tenderness throughout. Back: No spinal tenderness. No costovertebral tenderness. Full range of motion. Skin: Warm, dry with normal turgor. Normal color with no rashes, no lesions, and no evidence of cellulitis. MS/ Extremity: Pulses equal, no cyanosis. Neurovascular intact. Full, normal range of motion. Neuro: Awake and alert, GCS 15, oriented to person, place, time, and situation. Cranial nerves II-XII grossly intact. Motor strength 5/5 in all extremities. Sensory grossly intact. Cerebellar exam normal. Normal gait. 11:40 Eyes: Periorbital structures: appear normal, Pupils: no acute changes, equal, round, and reactive to light and accomodation, Extraocular movements: no acute changes, Sclera: icterus, is present, Vital Signs: 11:44 BP 121 / 56; Pulse 87; Resp 18; Temp 97.1; Pulse Ox 96% on R/A; Weight 66.22 kg; Height ll1 5 ft. 6 in. ; Pain 7/10; 11:44 Body Mass Index 23.56 (66.22 kg, 167.64 cm) ll1 11:44 Pain Scale: Adult ll1 MDM: 11:36 Patient medically screened. [facility] 15:15 Differential diagnosis: arthritis, sickle cell crisis. Data reviewed: vital signs, [facility] nurses notes, lab test result(s). Consideration of Admission/Observation Patient was admitted/placed on observation. Management of patient was discussed with the following: Hospitalist: Dr. Cobb. I considered the following discharge prescriptions or medication management in the emergency department Medications were administered in the Emergency Department. See MAR. Care significantly affected by the following chronic conditions: sickle cell anemia. Counseling: I had a detailed discussion with the patient and/or guardian regarding the historical points, exam findings, and any diagnostic results supporting the discharge/admit diagnosis, the need for further work-up and treatment in the hospital. Response to treatment: the patient's symptoms have mildly improved after treatment. 11/19 11:46 Order name: CBC with Diff; Complete Time: 13:51 [facility] 11/19 11:46 Order name: CMP; Complete Time: 12:34 [facility] 11/19 11:46 Order name: Retic Count; Complete Time: 13:51 [facility] 11/19 12:36 Order name: LDH; Complete Time: 13:17 [facility] 11/19 13:37 Order name: Manual Differential; Complete Time: 13:51 EDMS 11/19 13:51 Order name: Type And Screen; Complete Time: 15:12 [facility] 11/19 11:46 Order name: IV Saline Lock; Complete Time: 12:05 [facility] 11/19 11:46 Order name: Labs collected and sent; Complete Time: 12:05 [facility] 11/19 12:01 Order name: EKG - Nurse/Tech; Complete Time: 12:38 [facility] EC: Rate is 66 beats/min. Rhythm is regular. QRS [place] is Normal. [place] interval is normal at [facility] 166 msec. QRS interval is normal at 94 msec. QT interval is normal at 398 msec. No Q waves. T waves are Normal. No ST changes noted. Clinical impression: Sinus arrythmia. Administered Medications: 12:06 Drug: NS 0.9% IV 1000 ml IV at 1 bolus Per protocol; 1000 mL bolus Route: IV; Rate: 1 iw bolus; Site: right forearm; 12:06 Drug: Ondansetron IVP 4 mg IVP once; over 2 minutes Route: IVP; Site: right forearm; iw 12:06 Drug: morphine IVP or IV 4 mg IVP once over 4 mins Route: IVP; Infused Over: 4 mins; iw Site: right forearm; 14:45 Drug: HYDROmorphone IVP 0.5 mg IVP once Route: IVP; Site: right forearm; bp Disposition: 18:15 Co-signature as Attending Physician, Celso Mckeon MD I reviewed the patient's care rt provided by the Advanced Practice Provider and agree with the diagnosis and treatment plan. Disposition Summary: 11/20/23 13:51 Hospitalization Ordered Notes: Hospitalization Status: Observation [facility] Provider: Jan Cobb Location: Telemetry/MedSurg (observation) [facility] Condition: Fair [facility] Problem: chronic [facility] Symptoms: have worsened [facility] Bed/Room Type: Standard [facility] Room Assignment: 206(11/20/23 14:28) hb Diagnosis - Other sickle-cell disorders with crisis [facility] Discharge Instructions: - Discharge Summary Sheet ll1 Forms: - Work release form ll1 - Medication Reconciliation Form 7 - SBAR form 7 - Leadership Thank You Letter jh7 Signatures: Dispatcher [employer] EDMS Ella Engel, RN RN Chayo Retana RN RN hb Riley Cantrell RN RN bp Vernon Swift RN RN 1 Chasity Chávez, CATERING ADMINISTRATIVE ASSISTANT CATERING ADMINISTRATIVE ASSISTANT 7 Celso Mckeon MD MD rt Corrections: (The following items were deleted from the chart) 13:52 13:52 TYPE AND SCREEN+[id number].LAB.BRZ ordered. EDKY EDMS 14:28 13:51 [facility]
--- NOTE | 2023-11-20 14:20 | P.HP ---
Certification for Inpatient Patient admitted to: Inpatient With expected LOS: <2 Midnights <Radha Balderas - Last Filed: 11/20/23 14:51> Patient History Date of Service: 11/20/23 Reason for admission: Sickle cell crisis History of Present Illness: 23-year-old male with a past medical history of sickle cell, presents to the emergency room with back pain, headache. He reports symptoms started yesterday and has progressively gotten worse. He reports migraine, pain relieved with as needed analgesics from the emergency room. Pain 7 out of 10 relieved to about a 5 out of 10. He reports back pain, he denies shortness of breath, no reported cough, no reported chest pain, no reported abdominal pain. He reports associated jaundice, icterus eyes. Started 2 or 3 days ago is progressively getting worse. He reports sickle cell crisis exacerbated by dehydration and change in weather, cooler conditions. He reports being dehydrated at work, no reported nausea vomiting. Plan to admit for sickle cell crisis, elevated T. bili, back pain, migraine. He reports being seen at the [place] [facility] but has not had a visit in a couple months. He reports medication compliance with hydroxyurea, gabapentin, naproxen, folic acid. - Past Medical/Surgical History Diabetic: No -: Sickle cell crisis -: Avascular necrosis of left shoulder -: gallbladder removal -: spleen removal -: left shoulder surgery - Family History Mother Notes: diabetes, sickle cell trait Father Notes: diabetes, sickle cell trait, 3 heart attacks - Social History Alcohol use: No CD- Drugs: Yes Caffeine use: No <Radha Balderas - Last Filed: 11/20/23 14:51> Date of Service: 11/20/23 <Jan Cobb - Last Filed: 11/20/23 18:29> Allergies ceftriaxone Allergy (Mild, Verified 07/27/22 20:27) Itching Home Medications: Folic Acid 0.4 mg PO LUNCH 07/25/22 Gabapentin 300 mg PO DAILY 07/25/22 Hydroxyurea 2,000 mg PO DAILY 07/25/22 Hydrocodone 10/APAP 325 [[place] 10/325*] 1 tab PO Q6HP PRN #15 tab 07/29/22 Naproxen [Naprosyn*] 500 mg PO BID PRN #30 tab 07/29/22 levoFLOXacin [Levaquin*] 750 mg PO Q24H #9 tab 07/29/22 Review of Systems per HPI <Radha Balderas - Last Filed: 11/20/23 14:51> Physical Examination - Physical Exam General: Alert, In no apparent distress, Oriented x3 HEENT: Atraumatic, Normocephalic, Scleral icterus Neck: Supple, JVD not distended Respiratory: Clear to auscultation bilaterally, Normal air movement Cardiovascular: Normal pulses, Regular rate/rhythm Gastrointestinal: Normal bowel sounds Musculoskeletal: Other (Back pain) Integumentary: No rashes, No breakdown Neurological: Normal speech, Normal strength at 5/5 x4 extr - Studies Laboratory Data (last 24 hrs) 11/20/23 11/20/23 12:00 12:00 WBC 7.30 Hgb 8.7 L Hct 23.3 L Plt Count 369 Sodium 140 Potassium 3.4 L BUN 7 Creatinine 0.61 L Glucose 87 Total Bilirubin 6.1 H AST 41 H ALT 22 Alkaline Phosphatase 74 <Radha Balderas - Last Filed: 11/20/23 14:51> - Studies Laboratory Data (last 24 hrs) 11/20/23 11/20/23 12:00 12:00 WBC 7.30 Hgb 8.7 L Hct 23.3 L Plt Count 369 Sodium 140 Potassium 3.4 L BUN 7 Creatinine 0.61 L Glucose 87 Total Bilirubin 6.1 H AST 41 H ALT 22 Alkaline Phosphatase 74 <Jan Cobb - Last Filed: 11/20/23 18:29> Assessment and Plan - Plan Assessment plan Sickle cell crisis Resume home medications, judicious IV fluids, as needed analgesia as needed antiemetic Follow-up with the sickle cell clinic after discharge Migraine CT of the head As needed analgesia IV fluid for hydration Hypokalemia Trend electrolytes replace as needed Elevated LDH Trend LDH Trend LDH Microcytic anemia hemoglobin 8.7 23.3 trend HH Full code DVT Lovenox Diet regular Disposition Home independent prior Discharge Plan: Home - Advance Directives Does patient have a Living Will: No Does patient have a Durable POA for Healthcare: No - Code Status/Comfort Care Code Status: Full Code Critical Care: No Time Spent Managing Pts Care (In Minutes): 55 <Radha Balderas - Last Filed: 11/20/23 14:51> Date of Service: 11/20/23 Patient chart was reviewed and patient was seen and examined. PADMINI history and physical reviewed as well. Agree with the assessment and plan. Patient presented with sickle cell pain crisis. Patient labs correlate with his prior abnormal lab findings. Patient with sickle cell pain crisis, so most likely hemolysis is related to patient's sickling. Patient is on hydroxyurea and he has scheduled his follow-up with [place] [facility]. Patient states he is feeling better. Will admit him overnight and hydrate him and continue with folic acid. Continue with hydrea and continue with pain control. Anticipate discharge home over the next 48 hours. Most of the MDM was done by myself and plan of care was discussed with PADMINI as well as the patient. Plan to discharge home with outpatient follow-up with hematology over at [facility] hematology clinic. Anticipated length of stay is 1-2 days. <Jan Cobb - Last Filed: 11/20/23 18:29>
[2023-11-20] MEDS ORDERED: HYDROCODONE/APAP 7.5/325 MG TAB PO PRN (14:25)
[2023-11-20] MEDS ORDERED: HYDROMORPHONE HCL 0.5 MG/0.5 ML INJ ONE (14:38)
[2023-11-20 15:30] VITALS: BMI 23.6
[2023-11-20] MEDS ORDERED: ONDANSETRON 4 MG/2 ML VIAL IV PRN (15:40)
[2023-11-20] MEDS ORDERED: ACETAMINOPHEN 500 MG TAB PO PRN (15:40)
[2023-11-20] MEDS ORDERED: HYDROCODONE/APAP 10/325 TAB PO PRN (16:15)
[2023-11-20] MEDS: POTASSIUM CL SA 10 MEQ TAB PO ONE (16:20)
[2023-11-20] MEDS: NA CHLORIDE 0.9% 1,000 ML IV SCH (16:20)
--- NOTE | 2023-11-20 17:13 | RAD REPORT ---
EXAM DESCRIPTION: CT - Head Brain Wo Cont - 11/20/2023 4:57 pm CLINICAL HISTORY: Headache COMPARISON: No comparisons TECHNIQUE: All CT scans are performed using dose optimization technique as appropriate and may inclu de automated exposure control or mA/KV adjustment according to patient size. FINDINGS: No intracranial hemorrhage, hydrocephalus or extra-axial fluid collection.No areas of brai n edema or evidence of midline shift. The paranasal sinuses and mastoids are clear. The calvarium is intact. IMPRESSION: No acute intracranial abnormality.
[2023-11-20] MEDS: GABAPENTIN 300 MG CAP PO SCH (20:21)
[2023-11-20 20:41] LABS: Specific Gravity 1.011 (1.005-1.030); Sqamous Epithelial None Seen /HPF (None Seen); Urine Bacteria <20 /HPF (<20); Urine Bilirubin NEGATIVE (Negative); Urine Blood Trace (Negative); Urine Clarity Extremely Turbid (Clear); Urine Color Yellow (Yellow); Urine Culture Reflex Order NOT NEEDED; Urine Glucose NEGATIVE (Negative); Urine Ketones TRACE (Negative); Urine Microscopic Reflex YN ORDER UMIC; Urine Mucus 2+ /HPF (None Seen); Urine Nitrite NEGATIVE (Negative); Urine Protein TRACE (Negative); Urine RBC <5 /HPF (None Seen); Urine Urobilinogen 1+ (Normal); Urine WBC <5 /HPF (<5)
[2023-11-20] MEDS ORDERED: HOME MED 1 EA UNK (Folic Acid [Folic Acid] 0.4 MG Tablet) PO SCH (21:00)
[2023-11-20] MEDS ORDERED: GABAPENTIN 100 MG CAP PO SCH (21:00)
[2023-11-20] MEDS ORDERED: HYDROXYUREA 500 MG CAP PO SCH (21:00)
[2023-11-20] MEDS: HYDROMORPHONE HCL 0.5 MG/0.5 ML INJ IV PRN (22:31)
[2023-11-21 04:00] LABS: Absolute Basophils 0.1 K/uL (0-0.5); Absolute Eosinophils 0.4 K/uL (0-0.5); Absolute Lymphocytes (CBC) 3.3 K/uL (0.7-4.9); Absolute Monocytes 0.6 K/uL (0.1-1.3); Eosinophils % 6.5 % (0-4.4); Hemoglobin 6.9 g/dL (13.6-17.9); Lymphocytes % 50.8 % (15.3-44.8); MCH 33.4 pg (27.0-35.0); MCHC 36.3 g/dL (32.0-36.0); MPV 7.7 fL (7.6-11.3); Monocytes % 9.9 % (3.3-12.3); Neutrophils % 31.8 % (41.7-73.7); Nucleated RBC Absolute Count 0.1 (0-0); Nucleated Red Blood Cells % 1.8 % (0-0); Platelets 243 thou/uL (152-406); RBC Red Blood Cell Count 2.07 M/uL (4.33-5.43); Red Cell Distribution Width 22.5 % (12.1-15.2)
[2023-11-21 04:18] LABS: Albumin 3.3 g/dL (3.4-5.0); Albumin/Globulin Ratio 1.3 (1.1-1.8); Anion Gap 6.3 mEq/L (5.0-15.0); Bilirubin Total 5.5 mg/dL (0.2-1.0); Globulin 2.6 g/dL (2.3-3.5); Potassium 4.3 mEq/L (3.5-5.1); Protein, Total 5.9 g/dL (6.4-8.2)
[2023-11-21 05:08] LABS: Band Neutrophils 2 % (0-1); Differential Total Cells Count 100; Eosinophils 5 % (0-3); Lymphocytes 60 % (15-42); Monocytes 7 % (0-10); Nucleated Red Blood Cells 1 /100WBC; Segmented Neutrophils 26 % (40-80)
[2023-11-21 05:10] LABS: Anisocytosis 2+; Blood Morphology Comment NOTED (NOT SEEN); Platelet Estimate ADEQ; Polychromasia 3+
[2023-11-21] MEDS: ENOXAPARIN 40 MG/0.4 ML SQ SCH (07:55)
[2023-11-21] MEDS: FOLIC ACID 1 MG TABLET PO SCH (08:14)
[2023-11-21] MEDS: HYDROXYUREA 500 MG CAP PO SCH (08:14)
[2023-11-21 09:20] VITALS: BP 113/47; TEMP 98.9; O2SAT 94
--- NOTE | 2023-11-21 09:36 | P.DS ---
Admission Date: 11/20/23 Discharge Date: 11/21/23 Disposition: ROUTINE DISCHARGE Discharge Condition: GOOD Reason for Admission: Sickle cell crisis Vital Signs/Physical Exam: Temp Pulse Resp BP Pulse Ox 98.9 F 71 16 113/47 L 94 11/21/23 08:00 11/21/23 08:00 11/21/23 08:00 11/21/23 08:00 11/21/23 08:00 General: Alert, In no apparent distress, Oriented x3 HEENT: Atraumatic, Normocephalic Neck: Supple, JVD not distended Respiratory: Normal air movement Cardiovascular: Normal pulses, Regular rate/rhythm Capillary refill: <2 Seconds Gastrointestinal: Soft and benign Musculoskeletal: No clubbing, No swelling Integumentary: No rashes, No breakdown Neurological: Normal speech, Normal tone Lymphatics: No axilla or inguinal lymphadenopathy External genitalia: Deferred Rectal: Deferred Laboratory Data at Discharge: WBC 6.50 thou/uL (4.3-10.9) 11/21/23 03:04 Hgb 6.9 g/dL (13.6-17.9) L D 11/21/23 03:04 Hct 19.0 % (39.6-49.0) L 11/21/23 03:04 Plt Count 243 thou/uL (152-406) D 11/21/23 03:04 Sodium 141 mEq/L (136-145) 11/21/23 03:04 Potassium 4.3 mEq/L (3.5-5.1) D 11/21/23 03:04 BUN 7 mg/dL (7-18) 11/21/23 03:04 Creatinine 0.44 mg/dL (0.70-1.30) L 11/21/23 03:04 Glucose 94 mg/dL (74-106) 11/21/23 03:04 Magnesium 2.0 mg/dL (1.6-2.4) 11/21/23 03:04 Total Bilirubin 5.5 mg/dL (0.2-1.0) H 11/21/23 03:04 AST 34 U/L (15-37) 11/21/23 03:04 ALT 25 U/L (16-61) 11/21/23 03:04 Alkaline Phosphatase 57 U/L (45-117) D 11/21/23 03:04 Home Medications: Folic Acid 0.4 mg PO LUNCH 07/25/22 Gabapentin 300 mg PO DAILY 07/25/22 Hydroxyurea 2,000 mg PO DAILY 07/25/22 Hydrocodone 10/APAP 325 [[place] 10/325*] 1 tab PO Q6HP PRN #15 tab 07/29/22 Naproxen [Naprosyn*] 500 mg PO BID PRN #30 tab 07/29/22 Physician Discharge Instructions: Please follow up with the [place] [facility] this week. Generous fluid intake. Return to the emergency department as needed for pain, concerns. Okay to DC IV and DC home Follow-up with primary care provider in 1 to 2 weeks Please call the inpatient unit for any questions or concerns regarding hospital stay Return to the ER for worsening symptoms Diet: Regular Followup: NONE,NONE [Primary Care Provider] -
--- NOTE | 2023-11-24 17:03 | EKG ---
Test Date: 2023-11-20 Test Time: 12:26:25 [place]: MARANDA MEASUREMENT RESULTS: Intervals: Rate: 66 HI: 166 QRSD: 94 QT: 398 QTc: 417 [place]: P: 47 HI: 166 QRS: 44 T: 44 INTERPRETIVE STATEMENTS: Sinus rhythm with marked sinus arrhythmia Voltage criteria for left ventricular hypertrophy Abnormal ECG Compared to ECG 07/25/2022 13:08:18 No significant changes Electronically Signed On 11-24-23 16:47:28 CDT by Oleksandr Bill
== END 2023-11-21 11:20 | disposition home or self-care (01) | DRG 812 ==
LOC: ER 11:31 → ERHOLD 14:20 → 2ND 14:36
PROVIDERS: ADMIT Hospitalist; ATTEND Hospitalist
DX: D57.00 Hb-SS disease with crisis, unspecified (principal); G43.909 Migraine, unspecified, not intractable, without status migrainosus; D50.9 Iron deficiency anemia, unspecified; R74.02 Elevation of levels of lactic acid dehydrogenase [LDH]; E87.6 Hypokalemia; M54.9 Dorsalgia, unspecified; Z87.39 Personal history of other diseases of the musculoskeletal system and connective tissue; Z79.899 Other long term (current) drug therapy; Z88.1 Allergy status to other antibiotic agents; Z90.49 Acquired absence of other specified parts of digestive tract; Z90.81 Acquired absence of spleen; Z83.3 Family history of diabetes mellitus; Z82.49 Family history of ischemic heart disease and other diseases of the circulatory system
CPT/HCPCS: 36415; 70450; 80053; 81001; 83615; 83735; 85025; 85044; 86850; 86900; 86901; 93005; 96374; 96375; 99285; J1170; J2405; J7030